=== PATIENT | male | born 1960 | race Caucasian/White ===

== ENCOUNTER 2022-11-14 14:30 | Inpatient (IN) | payer MEDICARE, MEDICAID, SELFPAY ==
[2022-11-14 14:32] VITALS: BP 144/89; PULSE 111; RESP 16; TEMP 37.2; O2SAT 96
[2022-11-14 17:48] LABS: Basophils # 0.1 10^3/uL (0.0-0.1); Basophils % 0.5 %; Eosinophils # 0.1 10^3/uL (0.0-0.8); Eosinophils % 0.6 %; Hematocrit 44.3 % (42.0-52.0); Hemoglobin 15.2 g/dL (11.7-16.6); Lymphocytes % 9.2 %; Mean Corpuscular HGB Conc 34.3 g/dL (30.0-36.0); Mean Corpuscular Hemoglobin 29.4 pg (28.0-34.0); Mean Corpuscular Volume 85.7 fl (80-94); Mean Platelet Volume 10.4 fL (7.4-10.4); Monocytes # 1.3 10^3/uL (0.2-0.9); Monocytes % 11.6 %; Neutrophils # 8.29 10^3/uL (1.8-7.7); Neutrophils % 75.1 %; Nucleated Red Blood Cells % 0 %; Platelet Count 244 10^3/cmm (130-400); Red Blood Count 5.17 10^6/uL (4.1-5.3); Red Cell Distribution Width 11.6 % (12.1-15.1)
--- NOTE | 2022-11-14 18:04 | XRR_ITS ---
PROCEDURE INFORMATION: Exam: XR Right Toe(s) Exam date and time: 11/14/2022 6:14 PM Age: 61 years old Clinical indication: Condition or disease; Other: Pain, redness, swelling great toe and dorsal foot; Swelling, leg or foot and other: Non healing wound plantar surface and great toe; Patient HX: Pain, redness swelling great toe and dorsal foot, non-healing wound plantar surface and dm- concern for osteo TECHNIQUE: Imaging protocol: Radiologic exam of the right toes. Views: Minimum 2 views. COMPARISON: No relevant prior studies available. FINDINGS: Limitations: Study is somewhat limited by radiographic technique. Bones/joints: No fracture is identified. There is a ulcer along the plantar aspect of the great toe. There is a small amount of radiopaque material within the ulcer or perhaps a foreign object. Please correlate with the clinical findings. There is osteopenia of the medial aspect of the base of the 1st distal phalanx and also some erosion along the plantar aspect of the distal 1st proximal phalanx. These findings are highly worrisome for osteomyelitis. Soft tissues: There is mild soft tissue swelling. XR/XR toe RT min 2V [id number] IMPRESSION: 1. Findings worrisome for osteomyelitis 2. Possible foreign body within the ulcer.
--- NOTE | 2022-11-14 18:06 | XRR_ITS ---
PROCEDURE INFORMATION: Exam: XR Left Toe(s) Exam date and time: 11/14/2022 6:18 PM Age: 61 years old Clinical indication: Condition or disease; Other: Redness, swelling, nonhealing ulcer; Difficulty in walking and swelling, leg or foot and other: Non healing ulcer plantar surface and dm; Additional info: Non-healing wound plantar surface and dm- TECHNIQUE: Imaging protocol: Radiologic exam of the left toes. Views: Minimum 2 views. COMPARISON: No relevant prior studies available. FINDINGS: Limitations: Study is limited by processing algorithm. Bones/joints: No fracture is identified. Soft tissues: There is mild soft tissue swelling. No opaque foreign body is seen. XR/XR toe LT min 2V [id number] IMPRESSION: Mild swelling.
[2022-11-14 18:15] LABS: Alanine Aminotransferase 16 U/L (0-41); Albumin Level 3.6 g/dL (3.5-5.2); Alkaline Phosphatase 102 U/L (40-130); Anion Gap 20.2 (5-19); Aspartate Amino Transferase 15 U/L (0-40); Blood Urea Nitrogen 15 mg/dL (8-23); Calcium 9.1 mg/dL (8.5-10.5); Carbon Dioxide 21 mmol/L (22-29); Chloride 92 mmol/L (98-107); Globulin 3.4 g/dL (1.3-4.6); Glomerular Filtration Rate 136.1 mL/min (90-130); Glucose 361 mg/dL (65-115); Osmolality Calculated 283 mOsm/kg (285-295); Potassium 4.2 mmol/L (3.5-5.1); Sodium 129 mmol/L (136-145); Total Bilirubin 1.8 mg/dL (0.15-1.2)
--- NOTE | 2022-11-14 18:40 | ED_ITS ---
HPI - Extremity Problem General: Chief complaint: Extremity Problem,Nontraumatic Stated complaint: Toe pain Time Seen by Provider: 11/14/22 18:07 History of Present Illness: Mr. Griffin is a 61-year-old gentleman with possible history of diabetes presenting to the emergency department for foot pain and redness. He notes noting an ulceration on the right great toe and the left great toe couple months ago without known specific provoking traumatic event. 3 weeks ago he started noticing increased redness and swelling. He notes 3 days of more severe symptoms. Moderate pain at rest and worse with ambulation and palpation. He notes generalized malaise and cough. He does not check his blood sugars at home. Overall course of symptoms has worsened. No other specific changes in health, exacerbating, or alleviating factors identified. Apparently was seen at clinic this morning and prescribed antibiotics though he has not yet started those. Onset (ago): week(s) Pain Consistency: constant Location: right, lower extremity and toe Quality: aching Radiation: proximal Relieving factors: nothing Exacerbating factors: weight bearing and walking Associated symptoms: Reports other Review of Systems General: Reports: 10 or more systems reviewed and unremarkable except in HPI and below PFSH ED PFSH: Medical History (Updated 11/18/22 @ 15:24 by Brannon Latham MD) Diabetes History of alcoholism Hyperlipidemia Hypertension Surgical History (Updated 11/18/22 @ 15:24 by Brannon Latham MD) History of coronary artery bypass graft x 2 2007 Postsurgical percutaneous transluminal coronary angioplasty (PTCA) status Social History (Updated 11/14/22 @ 18:59 by Ray Jackson MD) Smoking and tobacco status: former smoker Physical Exam Const: COMMON NORMALS: alert GENERAL APPEARANCE: cooperative, well developed and ill appearing HENMT: COMMON NORMALS: normocephalic and atraumatic HEAD & SCALP: normocephalic and atraumatic Eye: COMMON NORMALS: conjunctivae normal CONJUNCTIVA: Yes conjunctivae normal SCLERA: sclerae normal Neck/C-Spine: COMMON NORMALS: supple GENERAL: Yes trachea midline Resp: COMMON NORMALS: clear to auscultation bilaterally EFFORT & INSPECTION: Yes able to speak in complete sentences AUSCULTATION: clear to auscultation bilaterally Cardio: COMMON NORMALS: regular rhythm RATE: tachycardic RHYTHM: regular rhythm GI: COMMON NORMALS: Soft to palpation PALPATION: Yes Soft to palpation and No Tenderness to palpation present (GI) Extremity: NARRATIVE EXTREMITY EXAM: Left great toe has medial plantar skin ulceration without superimposed infection. Right foot with erythema involving the first and second toes, there is swelling and tenderness, ulceration with necrotic appearing central eschar approximately 5 mm in diameter on the plantar surface medially. Chronic appearing skin changes likely secondary to peripheral vascular disease on bilateral legs. GENERAL: Yes normal exam except as noted and No edema Neuro: COMMON NORMALS: moves all extremities SENSORIUM/ORIENTATION: Yes alert and No Orientation impaired Psych: COMMON NORMALS: mental status grossly normal and Normal thought process present THOUGHT PROCESS: Normal thought process present Course Vital Signs: Vital signs: Vital Signs Temperature 97.3 F L 11/19/22 18:19 Pulse Rate 79 11/19/22 18:19 Respiratory Rate 18 11/19/22 18:19 Blood Pressure 152/90 11/19/22 18:19 Pulse Oximetry 95 11/19/22 18:19 Oxygen Delivery Me thod Room Air 11/19/22 17:24 Oxygen Flow Rate 6 11/18/22 12:32 MDM - Extremity (Nontraumatic) Medical Decision Making 61-year-old gentleman presenting with worsening toe pain in the context of diabetes and prior wounds. Exam of concerning for infection. Labs with my leukocytosis, normal hemoglobin and platelet count. 70 markers are elevated. Patient has hyperglycemia with mild likely spurious mostly hyponatremia. Elevated of uncertain etiology, no right upper quadrant tenderness. Ketones are negative. Chest x-ray with no lobar consolidation or pneumothorax. Foot x-ray demonstrates likely osteomyelitis. Podiatry consulted. Patient treated with broad-spectrum antibiotics and given IV fluids. The results of ED evaluation were discussed with the patient including plan for admission due to requirement for level of care not available if discharged to surgical specialty center significant worsening/deterioration. Patient agreeable with plan. Discussed with hospitalist service who was agreeable to admit patient. Medical Records I reviewed the patient's medical records. Lab Data I reviewed the patient's lab results. 11/18/22 05:21 11/18/22 05:21 Radiology Impressions Toe X-Ray 11/14/22 18:06 IMPRESSION: Mild swelling. Chest X-Ray 11/14/22 18:46 IMPRESSION: No acute infiltrate. Foot CT 11/14/22 21:16 IMPRESSION: 1. Small soft tissue ulceration seen on the plantar aspect of the 1st digit of the left foot with some surrounding edematous or inflammatory changes in the subcutaneous fat fascia. 2. There is no evidence for osteomyelitis in the current examination. Abdomen Ultrasound 11/14/22 21:17 Impression: 1. Status post cholecystectomy. 2. Mild hepatomegaly and hepatic steatosis. 3. No bile duct dilatation. 4. Negative kidneys. Laboratory Results WBC 11.0 10^3/uL (4.0-10.0) H 11/14/22 17:30 RBC 5.17 10^6/uL (4.1-5.3) 11/14/22 17: Hgb 15.2 g/dL (11.7-16.6) 11/14/22: Hct 44.3 % (42.0-52.0) 11/14/22 17:30 MCV 85.7 fl (80-94) 11/14/22: MCH 29.4 pg (28.0-34.0) 11/14/22: MCHC 34.3 g/dL (30.0-36.0) 11/14/22: RDW 11.6 % (12.1-15.1) L 11/14/22: Plt Count 244 10^3/cmm (130-400) 11/14/22: MPV 10.4 fL (7.4-10.4) 11/14/22 17:30 Neut % (Auto) 75.1 % 11/14/22: Lymph % (Auto) 9.2 % 11/14/22 17: [place] % (Auto) 11.6 % 11/14/22 17:30 Eos % (Auto) 0.6 % 11/14/22 17:30 Baso % (Auto) 0.5 % 11/14/22:30 Neut # (Auto) 8.29 10^3/uL (1.8-7.7) H 11/14/22 17:30 Lymph # (Auto) 1.0 10^3/uL (0.8-4.8) 11/14/22 17:30 [place] # (Auto) 1.3 10^3/uL (0.2-0.9) H 11/14/22 17:30 Eos # (Auto) 0.1 10^3/uL (0.0-0.8) 11/14/22 17:30 Baso # (Auto) 0.1 10^3/uL (0.0-0.1) 11/14/22 17:30 Nucleated RBC % (auto) 0 % 11/14/22 17:30 Nucleated RBCs # 0.0 /100WBC 11/14/22 17:30 ESR 49 mm/hr (0-10) H 11/14/22 17:12 Sodium 129 mmol/L (136-145) L 11/14/22 17:30 Potassium 4.2 mmol/L (3.5-5.1) 11/14/22 17:30 Chloride 92 mmol/L (98-107) L 11/14/22 17:30 Carbon Dioxide 21 mmol/L (22-29) L 11/14/22 17:30 Anion Gap 20.2 (5-19) H 11/14/22 17:30 BUN 15 mg/dL (8-23) 11/14/22 17:30 Creatinine 0.6 mg/dL (0.7-1.2) L 11/14/22 17:30 GFR Calculation 136.1 mL/min (90-130) H 11/14/22 17:30 Glucose 361 mg/dL (65-115) H 11/14/22 17:30 Calculated Osmolality 283 mOsm/kg (285-295) L 11/14/22 17:30 Lactic Acid 1.2 mmol/L (0.5-2.2) 11/14/22 17:30 Calcium 9.1 mg/dL (8.5-10.5) 11/14/22 17:30 Total Bilirubin 1.8 mg/dL (0.15-1.2) H 11/14/22 17:30 AST 15 U/L (0-40) 11/14/22 17:30 ALT 16 U/L (0-41) 11/14/22 17:30 Alkaline Phosphatase 102 U/L (40-130) 11/14/22 17:30 C-Reactive Protein 79.3 mg/L (0.0-4.9) H 11/14/22 17:12 Total Protein 7.0 g/dL (6.6-8.7) 11/14/22 17:30 Albumin 3.6 g/dL (3.5-5.2) 11/14/22 17:30 Globulin 3.4 g/dL (1.3-4.6) 11/14/22 17:30 Serum Ketones Negative (Negative) 11/14/22 19:20 Influenza Type A Ag negative (Negative) 11/14/22 19:15 Influenza Type B Ag negative (Negative) 11/14/22 19:15 SARS-CoV-2 Ag (Rapid) negative (Negative) 11/14/22 19:15 Discharge Plan Discharge Patient Disposition: Admitted As Inpatient Admit Provider: Yumi Griffin Clinical Impression: Diabetic infection of right foot Condition: Stable Discharge Diet: Cardiac and Diabetic Discharge Activity: Resume usual activity and Increase activity as tolerated Coding Level of Care Code ED Footwear Sales Representative for Freddy Ocampo
[2022-11-14 18:43] LABS: Erythrocyte Sedimentation Rate 49 mm/hr (0-10)
--- NOTE | 2022-11-14 18:46 | XRR_ITS ---
PROCEDURE INFORMATION: Exam: XR Chest Exam date and time: 11/14/2022 6:52 PM Age: 61 years old Clinical indication: Cough; Prior surgery TECHNIQUE: Imaging protocol: Radiologic exam of the chest. Views: 1 view. COMPARISON: No relevant prior studies available. FINDINGS: Lungs: There is no pulmonary venous congestion. Visualized portions of the lungs are clear. Pleural spaces: Unremarkable. No pleural effusion. No pneumothorax. Heart/Mediastinum: Heart is within normal limits of size. Bones/joints: Sternotomy wires and mediastinal surgical clips are present, consistent with previous coronary arterial bypass grafting. XR/XR chest 1V portable [id number] IMPRESSION: No acute infiltrate.
[2022-11-14 18:56] LABS: C Reactive Protein 79.3 mg/L (0.0-4.9)
[2022-11-14 19:24] LABS: Lactic Sepsis W/Reflex 1.2 mmol/L (0.5-2.2)
[2022-11-14] MEDS: piperacillin-tazobactam 4.5 GM in sodium chloride 0.9% (plus) 50 ML IV (19:29)
[2022-11-14 19:53] VITALS: BP 134/86; PULSE 93; RESP 16; O2SAT 96
[2022-11-14 20:07] LABS: Ketone (Acetest) Serum Negative (Negative)
[2022-11-14 20:08] LABS: Influenza A by IFA negative (Negative); Influenza B by IFA negative (Negative); SARS Covid-2 Antigen negative (Negative)
[2022-11-14] MEDS: sodium chloride 0.9% 1,000 ML 999 ML IV (20:19)
[2022-11-14 20:21] VITALS: BP 134/86; RESP 16; O2SAT 95
--- NOTE | 2022-11-14 20:34 | P.HP_ITS ---
Providers/Chief Complaint Primary Care Provider: Primitivo Crowder Chief Complaint: Toe pain History of Present Illness Hudson Griffin is a 61 year old male past medical history of diabetes however he claims he does not have it presenting to the ER with foot pain and redness. He has an ulcer on his right great toe and left great toe for last 2 months however about 2 to 3 weeks ago he started noticing increased redness and swelling. He says it has gotten worse compared to his baseline. He complains of pain at the toes which is worse when he tries to ambulate or touch the wound. He denies any shortness of breath or chest pain however says he does have a mild cough. He also feels generally weak. Patient is not on any home medic ations and is not on any treatment for his diabetes and does not take check his sugar at home. Endorses being a former smoker denies alcohol use. He does not remember how he got the ulcers initially. Denies any particular accident or trauma. Says at 1 point in the past used to check his blood sugars and take his medications however then his sugar started becoming uncontrolled and then he stopped caring for it and stopped taking treatment. He states when he feels well he never thinks to go to see a doctor and he has been well. 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 Says he has a history of CABG x2 and has a history of CAD and has a stent placed as well. Lives alone and says when she speaks to Jp Pb which is his friend in case he cannot make his own medical decisions. ED course: Blood pressure 144/89, respirate 16, pulse 111, temperature 99, satu rating well on room air. X-ray of toe obtained which showed mild swelling. No air. WBC 11.0, hemoglobin 15.2, ESR 49, sodium 129, potassium 4.2, carbon dioxide 21, BUN 15, creatinine 0.6 glucose 361, calcium 9.1. Podiatry was consulted from the ER. Dr. Khalil will evaluate the patient in consultation and give further recommendations. Patient given a dose of vancomycin and Zosyn Medications/Allergies Home Medications Medication Instructions Recorded Confirmed Last Taken Type aspirin 81 mg tablet,delayed 81 mg PO DAILY 11/14/22 11/14/22 11/13/22 21:00 History release Allergies Allergy/AdvReac Type Severity Reaction Status Date / Time No Known Allergies Allergy Verified 11/14/22 14:40 PFSH Acute PFSH: Medical History (Updated 11/15/22 @ 00:31 by Eric Khalil DPM) Diabetes Surgical History (Updated 11/14/22 @ 18:59 by Ray Jackson MD) No significant past surgical history Social History (Updated 11/14/22 @ 18:59 by Ray Jackson MD) Smoking and tobacco status: former smoker Vitals/I&O/Wt Last Vital Signs Temp 99.0 F 11/14/22 14:32 Pulse 93 11/14/22 19:53 Resp 16 11/14/22 20:21 BP 134/86 11/14/22 20:21 Pulse Ox 95 11/14/22 20:21 O2 Del Method Room Air 11/14/22 19:53 Weight last 48 hrs Weight 86.183 kg Physical Exam Narrative: General: Alert oriented x3, patient seen laying in bed appearing comfortable at this time. HEENT: Normocephalic, atraumatic, EOMI, breathing normally on room air no acute respiratory distress. Cardio: Regular rate rhythm, normal S1-S2, Respiratory: Clear to auscultation bilaterally no wheezes no rhonchi GI: Abdomen soft,bowel sounds + Extremities: Left toe has an ulcer present on the medial plantar surface. Right foot first and second toes have erythema swelling and are tender to palpation. There is also a necrotic area appearing in the center. Was not able to probe to check depth. Data 11/15/22 05:04 11/14/22 21:41 Micro: Microbiology 11/14/22 19:20 Blood Culture - Preliminary Blood SPECIMEN COLLECTED 11/14/22 19:20 Blood Culture - Preliminary Blood SPECIMEN COLLECTED A&P Assessment and plan (1) Diabetic infection of right foot: (2) Hyponatremia: (3) Hyperglycemia: Plan #Diabetic foot infection #Osteomyelitis great toe right foot #Diabetes mellitus untreated uncontrolled #Probable peripheral neuropathy #Former smoker #Hyponatremia 2/2 hyperglycemia #Mild HAGMA #History of CABG x2 #CAD status post PCI x1 stent - Check stat blood glucose ? Podiatry consulted await recommendations ? Check CT bilateral feet to rule out extent of deeper infection ? May consider MRI to rule out osteomyelitis however will wait for CT results first ? Blood sugar 361. We will place on insulin sliding scale ACHS low-dose intensity for now and may escalate as sugars are monitored. ? Check hemoglobin A1c ? Consider addition of insulin depending upon results above ? Patient will need to be started on antihyperglycemics at discharge. ? N.p.o. at midnight today for potential intervention in OR in the morning ? Heparin SQ twice daily for DVT prophylaxis ? Sodium 129 today most likely secondary to hyperglycemia. - Corrected sodium = 135 ? Total bilirubin 1.8. Will check US abdomen - Check CRP - Check procalcitonin - Check TSH, lipid panel - Up with assistance - PT after surgery - Check PT/INR in AM, CBC, BMP - Check blood cultures - Monitor vanco trough levels - Continue vancomycin and zosyn -Discussed with Dr. Khalil over the phone. Patient to go for great toe amputation in AM. - Gap elevated probably due to hyperglycemia. Serum ketones negative. - Check another BMP before treating blood glucose as labs available at from 4.30 pm and no insulin has been given so far. ?Patient will need PCP, cardiology, podiatry follow-up at discharge. He prefers to see a primary care physician with [facility] in [place]. Full Code SCDs, heparin subcu BID Attestations Medical Necessity Statement*: > 2 midnight stay for management of foot infection Other Coding Information Focused coding review requested Diagnoses Diabetic infection of right foot E11.628; L08.9 Hyponatremia E87.1 Hyperglycemia R73.9
--- NOTE | 2022-11-14 20:47 | PM.CONSULT ---
Providers/Reason For Consult Consulting Physician/Specialty*: Eric Khalil D.P.M. Reason for Consult*: Diabetic foot infection Primary Care Provider: Primitivo Crowder History of Present Illness History of Present Illness Hudson Griffin is a 61 year old male presents with foul-smelling red, swollen right great toe. Started out as a callus several months ago, states that several weeks ago he began getting signs of infection with redness and foul-smelling drainage. States he delayed his care and states that he thinks he waited too long to come into the hospital. He does not follow regularly with his primary care physician. He is not regularly checking his blood sugars and states that he has been following a poor diet and not regulating his glucose. Endorses numbness to his feet. No history of revascularization of lower extremities. No history of previous amputation. He also has a wound to his left great toe that is not as severe. Patient denies any subjective nausea, vomiting, fever, chills, shortness of breath or chest pain. Review of Systems General: Reports: 10 or more systems reviewed and unremarkable except in HPI and below Const: Denies: fever(s) or chills Eyes: Denies: change in vision Card: Denies: chest pain or palpitations Resp: Denies: dyspnea or productive cough GI: Denies: abdominal pain, nausea or vomiting : Denies: flank pain Musc: Reports: extremity swelling, joint stiffness and deformity Skin/Breast: Reports: erythema, sores, changes in skin color, dry skin, nail changes and change in hair Neuro: Reports: numbness in extremities, sensory changes and difficulty walking Psych: Denies: suicidal ideation Endo: Denies: change in body appearance Danny/Lymph: Denies: tender lymph nodes Medications/Allergies Home Medications Medication Instructions Recorded Confirmed Last Taken Type aspirin 81 mg tablet,delayed 81 mg PO DAILY 11/14/22 11/14/22 11/13/22 21:00 History release Allergies Allergy/AdvReac Type Severity Reaction Status Date / Time No Known Allergies Allergy Verified 11/14/22 14:40 Current Medications Generic Name Dose Route Start Last Admin Trade Name Freq PRN Reason Stop Dose Admin Sodium Chloride 1,000 mls @ 999 mls/hr 11/14/22 19:59 11/14/22 20:19 Sodium Chloride 0.9% IV 11/14/22 20:59 999 mls/hr .Q1H1M ONE Administration PFSH Acute PFSH: Medical History (Updated 11/15/22 @ 00:31 by Eric Khalil DPM) Diabetes Surgical History (Updated 11/14/22 @ 18:59 by Ray Jackson MD) No significant past surgical history Social History (Updated 11/14/22 @ 18:59 by Ray Jackson MD) Smoking and tobacco status: former smoker Vitals/I&O/Wt Last Vital Signs Temp 99.0 F 11/14/22 14:32 Pulse 93 11/14/22 19:53 Resp 16 11/14/22 20:21 BP 134/86 11/14/22 20:21 Pulse Ox 95 11/14/22 20:21 O2 Del Method Room Air 11/14/22 19:53 Weight last 48 hrs Weight 190 lb Physical Exam Narrative: GENERAL: Patient is alert and oriented ?3 and in no acute distress. The following is a focused bilateral lower extremity exam. VASCULAR: Dorsalis pedis palpable +1 left and right foot. Posterior tibial arteries +2. Capillary refill time less than 3 seconds to the left hallux delayed capillary refill to the tuft of the right great toe. Calf is supple and nontender proximally and distally. Decreased growth. Focal edema to the right great toe. NEUROLOGICAL: Protective sensation intact 0/10 sites, tested with [place] monofilament to bilateral feet. DERMATOLOGICAL: Full-thickness wound probes to bone at the plantar medial aspect of the right great toe. Measures 0.8 cm x 0.8 cm x 1 cm. It tunnels dorsally and laterally. Foul malodor and streaking erythema with proximal streaking to the midfoot at the dorsum of the right foot. Grade 2 wound to the left great toe plantarly without surrounding erythema, warmth or purulent drainage. Measures 4 mm x 5 mm x 2 mm. Dystrophic toenails x10. Indurated skin to the lower extremity bilaterally. Dependent rubor to the lower extremities bilaterally. Chronic skin pigmentation changes in a gaiter distribution bilateral legs. MUSCULOSKELETAL: No pain to palpation or with debridement bilateral foot secondary to neuropathy. Ankle joint dorsiflexion is 5 degrees beyond neutral bilaterally. Muscle strength +5 in all 3 planes bilateral foot and ankle. Data 11/14/22 17:30 11/14/22 21:41 Micro: Microbiology 11/14/22 19:20 Blood Culture - Preliminary Blood SPECIMEN COLLECTED 11/14/22 19:20 Blood Culture - Preliminary Blood SPECIMEN COLLECTED A&P Assessment and plan (1) Diabetic peripheral neuropathy associated with type 2 diabetes mellitus: (2) Osteomyelitis of great toe of right foot: (3) Cellulitis of right foot: (4) Non-pressure chronic ulcer of other part of right foot with necrosis of bone: PROCEDURE: Full thickness wound debridement Location: Plantar aspect of right great toe Local Anesthesia: none due to neuropathy Consent: Verbal Sterile Prep: with sterile saline flush Details: Full thickness sharp debridement of the wound was performed using curette. The wound was debrided of hyperkeratotic rim and devitalized and necrotic tissue down to bone, being the deepest level of debridement. Predebridement measurements: 0.8 cm x 0.8 cm x 1 cm Postdebridement measurements: 1 cm x 1.1 cm x 1 cm Hemostasis: Pressure Irrigation: sterile normal saline Dressing: Betadine wet-to-dry after culture was taken. Estimated Blood Loss: minimal Offloading: Nonweightbearing Wound culture was taken postdebridement and saline flush. Sent to microbiology for Gram stain and culture. (5) Non-pressure chronic ulcer of other part of left foot with fat layer exposed: Plan 61-year-old uncontrolled diabetic male with acute osteomyelitis and cellulitis to the right great toe. On admission 11/15/2022 WBC 11.0 ESR 49 mm/h CRP 79.3 mg/L A1c 12.4% Left foot x-ray negative for acute osseous injury, no bony destruction, no soft tissue emphysema, no foreign body. Right foot x-ray significant for osteolysis with erosive changes and bony destruction at the distal phalanx. Patient examined and evaluated, findings and treatment options were discussed with patient at length. He has a wound that probes to bone and also tunnels both dorsally and laterally around the distal phalanx of the right great toe. There is cellulitis streaking to the dorsum of the midfoot originating from the right great toe. There is foul purulent drainage from the right great toe wound. Discussed a variety of treatment options. Patient currently receiving empiric IV antibiotics. Discussed surgical debridement with bone culture, long-term antibiotics and local wound care versus amputation and potential primary delayed closure of the right great toe. After discussing risks versus benefits of each. Patient wishes to proceed with right great toe amputation. N.p.o. at midnight Nonweightbearing right foot Scheduled for right great toe amputation tomorrow morning 11/16/2022 Amputation site will be left open, should soft tissue improve over the next 2 to 3 days would return to the operating room for primary delayed closure Wound cultures taken after bedside debridement, sent to microbiology for Gram stain and culture Dressed with Betadine wet to dry Podiatry will follow Consult Attestations Medical Necessity Statement: Diabetic foot infection with osteomyelitis and cellulitis right foot. Coding Level of Care Code Acute Code for [facility] Fwd Diagnoses Diabetic peripheral neuropathy associated with type 2 diabetes mellitus E11.42 Osteomyelitis of great toe of right foot M86.9 Cellulitis of right foot L03.115 Non-pressure chronic ulcer of other part of right foot with necrosis of bone L97.514 Non-pressure chronic ulcer of other part of left foot with fat layer exposed L97.522 Comment CPT code 78644
[2022-11-14 21:06] VITALS: BP 146/84; PULSE 76; RESP 18; TEMP 37.1; O2SAT 99
--- NOTE | 2022-11-14 21:12 | CTR_ITS ---
PROCEDURE INFORMATION: Exam: CT Right Lower Extremity With Contrast, Foot Exam date and time: 11/15/2022 12:06 AM Age: 61 years old Clinical indication: Cellulitis; Patient HX: Redness with diabetic wounds to right foot. ; Additional info: R/O deep infection, osteo? TECHNIQUE: Imaging protocol: CT of the right lower extremity with intravenous contrast was performed. Exam focused on the foot. Radiation optimization: All CT scans at this facility use at least one of these dose optimization techniques: automated exposure control; mA and/or kV adjustment per patient size (includes targeted exams where dose is matched to clinical indication); or iterative reconstruction. Contrast material: OMNI 350; Contrast volume: 75 ml; Contrast route: INTRAVENOUS (IV); REPORTING DATA: Count of CT and Cardiac NM exams in prior 12 months: This patient has received [address] and 0 known cardiac nuclear medicine studies in the 12 months prior to the current study. COMPARISON: CR (LOW EXM, ) 11/14/2022 6:14 PM RADIATION DOSE METRICS: Total DLP (mGy-cm): 252.44 FINDINGS: Bones/joints: There is a soft tissue defect seen on the dorsal medial aspect the 1st digit of the right foot that extends to the surface of the distal phalanx. There is a lytic lesion seen in the distal phalanx of the 1st digit with osseous erosion of the cortical margin on the dorsal medial aspect the proximal extent of the distal phalanx, findings compatible with osteomyelitis. Soft tissues: Normal. CT/CT foot RT w con [id number] IMPRESSION: 1. Lytic lesion with erosion of the cortical margin of the dorsal medial aspect of the proximal extent of the distal phalanx of the 1st digit of the right foot compatible with osteomyelitis. 2. Surrounding edema and/or inflammatory changes within the subcutaneous tissues of the 1st digit.
--- NOTE | 2022-11-14 21:16 | CTR_ITS ---
PROCEDURE INFORMATION: Exam: CT Left Lower Extremity With Contrast, Foot Exam date and time: 11/15/2022 12:10 AM Age: 61 years old Clinical indication: Cellulitis; Patient HX: Redness with diabetec wounds to left foot. ; Additional info: R/O deep infection, osteo? TECHNIQUE: Imaging protocol: CT of the left lower extremity with intravenous contrast was performed. Exam focused on the foot. Radiation optimization: All CT scans at this facility use at least one of these dose optimization techniques: automated exposure control; mA and/or kV adjustment per patient size (includes targeted exams where dose is matched to clinical indication); or iterative reconstruction. Contrast material: OMNI 350; Contrast volume: 75 ml; Contrast route: INTRAVENOUS (IV); REPORTING DATA: Count of CT and Cardiac NM exams in prior 12 months: This patient has received [address] and 0 known cardiac nuclear medicine studies in the 12 months prior to the current study. COMPARISON: CR (LOW EXM, ) 11/14/2022 6:18 PM RADIATION DOSE METRICS: Total DLP (mGy-cm): 142.19 FINDINGS: Bones/joints: A soft tissue ulceration seen the plantar aspect of the 1st digit of the left foot at the level of the distal interphalangeal joint. There are surrounding diffuse subcutaneous densities findings that could represent edematous versus inflammatory changes. Soft tissues: See Bones/joints finding. CT/CT foot LT w con [id number] IMPRESSION: 1. Small soft tissue ulceration seen on the plantar aspect of the 1st digit of the left foot with some surrounding edematous or inflammatory changes in the subcutaneous fat fascia. 2. There is no evidence for osteomyelitis in the current examination.
--- NOTE | 2022-11-14 21:17 | US_ITS ---
WS: [id number] Complete ABDOMINAL ULTRASOUND HISTORY: Elevated T bilirubin. COMPARISON: None available. Liver: 18.9 cm in length. Mildly enlarged liver. There is slight coarse echotexture. No mass identifi ed. No bile duct dilatation. Portal Vein: Normal hepatopetal flow with monophasic waveform. Gallbladder: Status post cholecystectomy. CBD: 0.4 cm Pancreas: Normal size and echogenicity. Right kidney: 13.0 cm x 6.9 x 6.3 cm. Cortex:1.7 cm. Normal size and echogenicity. No hydronephrosis or mass. Left kidney: 11.5 cm x 5.4 cm x 6.4 cm. Cortex: 2.1 cm. No mass, cortical thickening or hydronephrosis. Spleen: Normal size with granulomata. Aorta and IVC: Unremarkable abdominal aorta and IVC. US/US abdomen complete* [id number] Impression: 1. Status post cholecystectomy. 2. Mild hepatomegaly and hepatic steatosis. 3. No bile duct dilatation. 4. Negative kidneys.
[2022-11-14 21:48] VITALS: BMI 27.2
[2022-11-14 22:13] LABS: Lactic Sepsis W/Reflex 1.7 mmol/L (0.5-2.2)
[2022-11-14 22:15] LABS: Estmated Average Glucose 309; Hemoglobin A1C 12.4 % (4.0-6.0)
[2022-11-14 22:24] LABS: Procalcitonin 0.43 ng/mL (0-0.5); Thyroid Stimulating Hormone 2.86 uIU/mL (0.27-4.20)
[2022-11-14 22:35] LABS: Blood Urea Nitrogen 13 mg/dL (8-23); Calcium 8.6 mg/dL (8.5-10.5); Carbon Dioxide 24 mmol/L (22-29); Chloride 92 mmol/L (98-107); Cholesterol 114 mg/dL (0-200); Glomerular Filtration Rate 113.9 mL/min (90-130); Glucose 377 mg/dL (65-115); HDL Cholesterol 19 mg/dL (60-100); LDL Cholesterol Calculated 22 mg/dL (50-129); LDL HDL Ratio 1.16 RATIO (0.00-3.22); Osmolality Calculated 284 mOsm/kg (285-295); Sodium 129 mmol/L (136-145); Triglycerides 366 mg/dL (0-150)
[2022-11-14 22:47] LABS: Glucose Point of Care 405 mg/dL (70-110)
[2022-11-14] MEDS: sodium chloride 0.9% 1,000 ML 125 ML IV (22:47)
[2022-11-14] MEDS: heparin 5,000 unit/mL INJ 1 mL 5000 UNIT SUBCUT (22:47)
[2022-11-14] MEDS: acetaminophen 325 mg Tablet 650 MG PO (22:47)
[2022-11-14] MEDS: insulin lispro 100 unit/1 mL SUBCUT (23:18)
[2022-11-14 23:34] VITALS: RESP 16
[2022-11-14] MEDS: morphine 4 mg/mL SDV 1 mL 2 MG IVP (23:34)
[2022-11-15] VITALS (12 sets, daily range): BP systolic 120–139; BP diastolic 73–83; PULSE 68–85; RESP 14–18; TEMP 36.1–37.1; O2SAT 95–99
[2022-11-15] MEDS: iohexol 350 mg/mL 500 mL Btl (per mL) IV (00:14)
[2022-11-15] MEDS: piperacillin-tazobactam 3.375 GM in sodium chloride 0.9% (plus) 50 ML IV ×3 (00:45→20:16)
[2022-11-15] MEDS: vancomycin 1,500 MG/300 ML PIGGYBACK 200 MG IV ×3 (04:25→23:23)
[2022-11-15 05:36] LABS: Basophils % 0.5 %; Eosinophils # 0.2 10^3/uL (0.0-0.8); Eosinophils % 2.4 %; Hematocrit 39.1 % (42.0-52.0); Hemoglobin 13.2 g/dL (11.7-16.6); Lymphocytes # 1.5 10^3/uL (0.8-4.8); Lymphocytes % 18.8 %; Mean Corpuscular HGB Conc 33.8 g/dL (30.0-36.0); Mean Corpuscular Hemoglobin 29.5 pg (28.0-34.0); Mean Corpuscular Volume 87.5 fl (80-94); Mean Platelet Volume 10.4 fL (7.4-10.4); Monocytes # 1.2 10^3/uL (0.2-0.9); Monocytes % 14.9 %; Neutrophils # 4.71 10^3/uL (1.8-7.7); Neutrophils % 60.5 %; Nucleated Red Blood Cells % 0 %; Platelet Count 215 10^3/cmm (130-400); Red Blood Count 4.47 10^6/uL (4.1-5.3); Red Cell Distribution Width 11.8 % (12.1-15.1); White Blood Count 7.8 10^3/uL (4.0-10.0)
[2022-11-15 05:54] LABS: Anion Gap 12.7 (5-19); Blood Urea Nitrogen 10 mg/dL (8-23); Calcium 8.2 mg/dL (8.5-10.5); Carbon Dioxide 26 mmol/L (22-29); Chloride 100 mmol/L (98-107); Glomerular Filtration Rate 136.1 mL/min (90-130); Glucose 199 mg/dL (65-115); Osmolality Calculated 285 mOsm/kg (285-295); Potassium 3.7 mmol/L (3.5-5.1); Sodium 135 mmol/L (136-145)
[2022-11-15] MEDS: sodium chloride 0.9% 1,000 ML 30 ML IV (06:45)
--- NOTE | 2022-11-15 06:47 | W.PM.OPSUD ---
Surgery/Procedure H&P Update DATE OF PROCEDURE: November 15, 2022 DATE H&P PERFORMED: 11/14/22 CHANGES TO PREVIOUS DOCUMENTATION: none PLANNED PROCEDURE: Operation Date: 11/15/22 07:00 Proposed Procedures p Amputation Toe/s(Right) - Eric Khalil DPM
--- NOTE | 2022-11-15 07:19 | P.ANESASSM_ITS ---
Pre-Anesthetic Assessment Height/Weight: Height 1.78 m Weight 86.183 kg Temp Pulse Resp BP Pulse Ox O2 Del Method 98.8 F 75 16 130/80 99 Room Air 11/15/22 06:31 11/15/22 06:31 11/15/22 06:31 11/15/22 06:31 11/15/22 06:31 11/15/22 06:31 Operation Date: 11/15/22 07:00 Proposed Procedures p Amputation Toe/s(Right) - Eric Khalil DPM Familial anesthetic complications: none Was Beta Torri taken within 24 hours: N/A Was Clonidine taken within 24 hours: N/A Social No alcohol and No tobacco Exam alert, oriented x 3 and regular rate & rhythm Airway Submandibular: within normal limits Cervical ROM: within normal limits Mallampati: Class II Dentition: false Pulmonary Chronic Obstructive Pulmonary Disease CV/HEM Anemia and Coronary Artery Disease (CABG and stent) Metabolic Diabetes Mellitus Neuropsych Neuropathy Anesthetic Plan ASA status: 3 Anesthesia: Choice Medications/Allergies Home Medications Medication Instructions Recorded Confirmed Last Taken Type aspirin 81 mg tablet,delayed 81 mg PO DAILY 11/14/22 11/14/22 11/13/22 21:00 History release Allergies Allergy/AdvReac Type Severity Reaction Status Date / Time No Known Allergies Allergy Verified 11/14/22 14:40 Current Medications Generic Name Dose Route Start Last Admin Trade Name Freq PRN Reason Stop Dose Admin Acetaminophen 650 mg 11/14/22 21:06 11/14/22 22:47 Acetaminophen 325 Mg Tablet PO 650 mg Q6H PRN Administration Mild/Mod Pain Or Temp >/= 101 Heparin Sodium (Porcine) 5,000 unit 11/14/22 21:15 11/14/22 22:47 Heparin 5,000 Unit/Ml Inj 1 Ml SUBCUT 5,000 unit Q12H RG Administration Sodium Chloride 1,000 mls @ 125 mls/hr 11/14/22 21:15 11/14/22 22:47 Sodium Chloride 0.9% IV 125 mls/hr .Q8H RG Administration Piperacillin Sod/Tazobactam 50 mls @ 12.5 mls/hr 11/15/22 01:30 11/15/22 04:52 Sod 3.375 gm/ Sodium Chloride IV Infused Q8H RG Infusion Vancomycin/PEG/NADA/Lysine/Water 1,500 mg in 300 mls @ 200 mls/hr 11/15/22 04:00 11/15/22 06:14 Vancocin IV Infused Q8H RG Infusion Sodium Chloride 1,000 mls @ 30 mls/hr 11/15/22 06:45 11/15/22 06:45 Sodium Chloride 0.9% IV 11/16/22 06:44 30 mls/hr .Q24H RG Administration Insulin Human Lispro 0 unit 11/14/22 23:15 11/14/22 23:18 Insulin Lispro 100 Unit/1 Ml SUBCUT 16 unit WM&BEDTIME RG Administration Protocol [facility] Anesthesia Medical History (Updated 11/15/22 @ 00:31 by Eric Khalil DPM) Diabetes Surgical History (Updated 11/14/22 @ 18:59 by Ray Jackson MD) No significant past surgical history Social History (Updated 11/14/22 @ 18:59 by Ray Jackson MD) Smoking and tobacco status: former smoker Data Anesthesia 11/15/22 05:04 11/15/22 05:04 Short CBC 11/14/22 11/15/22 Range/Units 17:30 05:04 WBC 11.0 H 7.8 (4.0-10.0) 10^3/uL Hgb 15.2 13.2 (11.7-16.6) g/dL Hct 44.3 39.1 L (42.0-52.0) % MCV 85.7 87.5 (80-94) fl Plt Count 244 215 (130-400) 10^3/cmm Neut % (Auto) 75.1 60.5 % Neut # (Auto) 8.29 H 4.71 (1.8-7.7) 10^3/uL BMP 11/14/22 11/14/22 11/15/22 17:30 21:41 05:04 Sodium 129 L 129 L 135 L Potassium 4.2 4.0 3.7 Chloride 92 L 92 L 100 Carbon Dioxide 21 L 24 26 BUN 15 13 10 Creatinine 0.6 L 0.7 0.6 L Glucose 361 H 377 H 199 H Calcium 9.1 8.6 8.2 L Liver Function 11/14/22 Range/Units 17:30 Total Bilirubin 1.8 H (0.15-1.2) mg/dL AST 15 (0-40) U/L ALT 16 (0-41) U/L Alkaline Phosphatase 102 (40-130) U/L Albumin 3.6 (3.5-5.2) g/dL COVID Results 11/14/22 19:15 SARS-CoV-2 Ag (Rapid) negative Coags 11/14/22 11/14/22 17:12 17:12 ESR 49 H C-Reactive Protein 79.3 H Microbiology 11/14/22 19:20 Blood Culture - Preliminary Blood SPECIMEN COLLECTED 11/14/22 19:20 Blood Culture - Preliminary Blood SPECIMEN COLLECTED Cardiac Studies: No Data to Display
--- NOTE | 2022-11-15 07:32 | P.OP_ITS ---
Operative Report Date of procedure: November 15, 2022 Pre-op diagnosis: Osteomyelitis right great toe Cellulitis right foot Diabetic foot ulcer, left great toe exposed to fat layer Post-op diagnosis: Same Procedure done: Right great toe amputation at metatarsal phalangeal joint. Debridement of left great toe wound. Implants: None Specimens removed/disposition: Bone culture distal phalanx right great toe sent to microbiology for Gram stain and culture. Pathology: Right great toe sent to pathology for permanent Surgeon: Eric Khalil D.P.M. Microwave Technician: Ashley Estimated blood loss: 5 7 IV fluids: 0 Urine output: 0 Complications: None Brief History: Patient reports a callus that transitioned into the wound several weeks ago. He reports waiting too long to come in and seek care. He presented to the emergency department with a wound to the plantar aspect of his right great toe that probes directly to bone, x-ray finding shows osteolysis of the distal phalanx indicative of osteomyelitis. Discussed surgical amputation versus debridement, bone culture and medical management with local wound care. Patient wishes to proceed with amputation of the right great toe as a more definitive option from his point of view. I reviewed at length with the patient, the risks, potential complications, benefits, alternatives, expectations, and typical outcomes associated with the surgery. The risks and potential complications were explained in detail, including but not limited to infection, wound dehiscence or soft tissue complications, bleeding and hematoma, chronic edema, neuritis or nerve damage producing numbness or chronic pain, CRPS, failure to relieve pain or worsening pain, thick / painful / unsightly scar, limited motion / stiffness, malposition, delayed union, malunion, or nonunion, fracture, reaction to implants, anesthetic complications, venous thromboem bolism, and deformity recurrence. I discussed the notion of no regrets with the patient as it pertains to complications and outcomes. The patient seemed to understand the nature of the proposed care and required convalescence. They asked appropriate questions, answered to their satisfaction. They are aware no guarantees can be made as to a satisfactory outcome and they understand there may be other possible unforeseen complications or outcomes not listed here that will be treated accordingly if they arise. There were no written or implied guarantees given to the patient. They gave informed consent to proceed. Patient n.p.o. since midnight. Informed consent signed by patient and myself. I initialed his right ankle. Patient wishes to proceed. Procedure: Under mild sedation the patient was brought to the operating room and remained on the gurney in supine position. A timeout was performed. Anesthesia was then administered by the anesthesia service. Local anesthesia was injected by myself consisting of 20 cc of 0.5% Marcaine plain in a right Lebron block fashion. Well- padded pneumatic tourniquet was applied to the right ankle. Right lower extremity was scrubbed, prepped and draped utilizing normal aseptic technique. Right foot was elevated and tourniquet inflated to 250 mmHg. Attention was directed to the right foot where a fishmouth incision was performed encompassing the right great toe at the level of the metatarsal phalangeal joint leaving adequate dorsal and plantar soft tissue flaps. Full- thickness incision down to bone circumferentially around the right great toe which was then disarticulated through the metatarsal phalangeal joint with a #15 blade and passed from the operative field. Bone culture taken with a rongeur of the distal phalanx of the right great toe noted to be soft, bassett and devitalized. Bleeders were ligated and cauterized as necessary. The right great toe amputation site was irrigated with copious amounts of sterile saline solution. Residual cellulitis of the surrounding soft tissue was appreciated and determination was made to perform a saline wet-to-dry dressing and allow continuation of IV antibiotics for soft tissue improvement, should this occur we will return for further debridement and potential primary delayed closure. The head of the first metatarsal was directly visualized and noted to be viable with bright light and appropriate density. Wound was packed saline wet-to-dry, Kerlix and Coban to the right foot. Sharp debridement was performed with a #15 blade to the left great toe. Predebridement wound measurements 0.8 cm x 0.8 cm x 0.2 cm at the plantar aspect of the left hallux interphalangeal joint. 15 blade was utilized to perform excisional debridement down to and including subcutaneous tissue and fat layer. Postdebridement wound measurements to the left great toe 1 cm x 1 cm x 0.3 cm with improved appearance, improved granular bleeding base with hemostasis via manual pressure. Wound was debrided of devitalized epidermis, dermis and subcutaneous tissue. Dressing consisting of 4 x 4 and Coban was applied to the left great toe. Patient tolerated anesthesia and the procedure well and was transferred to the PACU with vital signs stable and vascular status intact. Following a period of postoperative monitoring he will be transferred back to the floor. Will continue empiric IV antibiotics. Will monitor daily and once soft tissue shows clinical improvement we will plan for repeat debridement and primary delayed closure. Not planning on PICC line, level of amputation should be curative of osteomyelitis. Will continue to monitor this.
--- NOTE | 2022-11-15 09:13 | ECG_ITS ---
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 Measurements Intervals [place] Rate: 71 P: 26 TX: 138 QRS: 81 QRSD: 86 T: 65 QT: 384 QTc: 418 Interpretive Statements SINUS RHYTHM Compared to ECG 01/03/2015 18:56:24 No significant changes Electronically Signed On 11-15-2022 13:50:47 CDT by Hu Escalante M.D. [id number]
[2022-11-15 09:33] LABS: NT Pro B Type Natriuretic Pept 132 pg/mL (0-125)
[2022-11-15 09:37] LABS: Troponin(5th) Baseline 9 ng/L (0-15)
[2022-11-15] MEDS: insulin glargine 100 units/1 mL 5 UNIT SUBCUT ×2 (10:36→23:13)
[2022-11-15] MEDS: heparin 5,000 unit/mL INJ 1 mL 5000 UNIT SUBCUT ×2 (10:36→20:16)
--- NOTE | 2022-11-15 10:56 | ECG_ITS ---
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 Measurements Intervals [place] Rate: 70 P: 29 [place]: 145 QRS: 80 QRSD: 94 T: 68 QT: 391 QTc: 422 Interpretive Statements SINUS RHYTHM Compared to ECG 11/15/2022 09:13:27 No significant changes Electronically Signed On 11-15-2022 13:52:48 CDT by Hu Escalante M.D. [id number]
[2022-11-15 11:38] LABS: Glucose Point of Care 311 mg/dL (70-110)
[2022-11-15 11:41] LABS: Troponin 5 2HR 9.47 ng/L (0-15)
[2022-11-15 12:21] LABS: Troponin 5 2HR Delta 0.47 ABS# (0-10)
[2022-11-15] MEDS: insulin lispro 100 unit/1 mL SUBCUT ×3 (12:51→23:13)
--- NOTE | 2022-11-15 13:42 | ANE.PACU2 ---
Inpatient post-anesthesia follow up: Airway intact: Yes Vital signs: Temperature 98 F Pulse Rate 72 Respiratory Rate 16 Blood Pressure 120/73 Pulse Oximetry 98 Oxygen Delivery Me thod Room Air Oxygen Flow Rate 6 Fraction of Inspir ed Oxygen Hydration adequate: Yes Nausea and vomiting: No Pain level: 2 Mental status: Baseline
--- NOTE | 2022-11-15 14:14 | USCV_ITS ---
Hudson Griffin Age: 61 Gender: M : 1960 Exam Date: 11/15/2022 17:15 Ordering Phys: Flash Eastman MD Technologist: JEN Exam Location: [facility] [place] Indication: arterial disease Risk Factors: Previous Vascular Surgery: RIGHT LEFT BP: 134.0 / 79.00 BP: 134.0/ 80.00 0 0 Waveform Velocity (cm/s) Velocity (cm/s) Waveform Triphasic 94.0 Iliac Prox 79.4 Triphasic Triphasic 68.4 Iliac Mid 71.7 Triphasic Triphasic Iliac Distal Triphasic 70.7 56.5 Triphasic 62.9 HELP DESK INTERNSHIP 63.1 Triphasic Triphasic 81.6 SFA Prox 62.4 Triphasic Triphasic 78.5 SFA Mid 118.3 Triphasic Triphasic 83.9 SFA Dist 92.0 Triphasic Triphasic 110.2 POP 106.5 Triphasic Triphasic 133.0 DIGITAL MARKETING STRATEGIST 90.7 Triphasic Triphasic 181.8 DPA 63.1 Triphasic 1.1 LUZ 1.1 FINDINGS Resting LUZ 1.1 bilaterally Normal arterial Doppler waveforms and velocities bilaterally CONCLUSIONS No evidence of any significant arterial obstruction, based on the above findings. Dr Reyna Mcintosh MD [facility] (Electronically Signed) Final Date: 16 November 2022 20:47 S
--- NOTE | 2022-11-15 14:49 | PM.PN ---
Subjective Subjective: Patient was seen this morning, he tells me that the infection in his toe happened overnight, he is done on how fast to happen, he is also started when I tell him that his A1c was 12.4, he tells me that it was in the 6 range not too long ago, Vitals/I&O/Wt Last Vital Signs Temp 98 F 11/15/22 08:49 Pulse 72 11/15/22 08:49 Resp 16 11/15/22 08:49 BP 120/73 11/15/22 08:49 Pulse Ox 98 11/15/22 08:49 O2 Del Method Room Air 11/15/22 07:45 O2 Flow Rate 6 11/15/22 07:31 11/14/22 11/15/22 11/15/22 22:59 06:59 14:59 Intake Total 1550 / 1550 350 / 1900 1350 / 1350 Output Total 0 / 0 Balance 1550 / 1550 350 / 1900 1350 / 1350 Weight last 48 hrs Weight 86.183 kg Weight 86.183 kg Physical Exam Const: COMMON NORMALS: no acute distress and patient oriented x3 Resp: COMMON NORMALS: normal respiratory effort, No retractions, No use of accessory muscles and clear to auscultation bilaterally AUSCULTATION: clear to auscultation bilaterally Cardio: COMMON NORMALS: regular rate, regular rhythm, S1 normal heart sound present and S2 normal heart sound present RATE: regular rate RHYTHM: regular rhythm HEART SOUNDS: S1 normal heart sound present and S2 normal heart sound present GI: COMMON NORMALS: Normal to inspection, nondistended, normoactive bowel sounds present and non-tender Extremity: NARRATIVE EXTREMITY EXAM: Bilateral lower extremity wrapped in bandage Neuro: COMMON NORMALS: patient oriented x3 Psych: COMMON NORMALS: mental status grossly normal Data 11/15/22 05:04 11/15/22 05:04 Micro: Microbiology 11/14/22 19:20 Blood Culture - Preliminary Blood SPECIMEN COLLECTED 11/14/22 19:20 Blood Culture - Preliminary Blood SPECIMEN COLLECTED A&P Assessment and plan (1) Diabetic infection of right foot: (2) Hyponatremia: (3) Hyperglycemia: Plan #Diabetic foot infection #Osteomyelitis great toe right foot, status post right great toe amputation at metatarsophalangeal joint, with debridement of left great toe wound, postop day 0 #Diabetes mellitus untreated uncontrolled #Probable peripheral neuropathy #Former smoker #Hyponatremia 2/2 hyperglycemia #Mild HAGMA #History of CABG x2 #CAD status post PCI x1 stent -Low-dose sliding scale, with Lantus 5 units twice daily, monitor blood sugars closely ? Heparin SQ twice daily for DVT prophylaxis ? Sodium 129 today most likely secondary to hyperglycemia. - Corrected sodium = 135 ? Total bilirubin 1.8. Will check US abdomen - PT after surgery - Check blood cultures, surgical cultures - Monitor vanco trough levels - Continue vancomycin and zosyn -Discussed with Dr. Khalil, -We will do vascular studies ?Patient will need PCP, cardiology, podiatry follow-up at discharge. He prefers to see a primary care physician with [facility] in [place]. Plan for today antibiotic therapy, monitor surgical site, monitor blood sugars, vascular studies Full Code SCDs, heparin subcu BID Attestations Medical Necessity Statement*: Patient requires hospitalization for diabetic foot infection, Diagnoses Diabetic infection of right foot E11.628; L08.9 Hyponatremia E87.1 Hyperglycemia R73.9
--- NOTE | 2022-11-15 14:56 | ECG_ITS ---
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 Measurements Intervals [place] Rate: 76 P: 27 ID: [id number] QRS: 79 QRSD: 87 T: 66 QT: 372 QTc: 419 Interpretive Statements SINUS RHYTHM WITH SINUS ARRHYTHMIA Compared to ECG 11/15/2022 10:49:47 No significant changes Electronically Signed On 11-16-2022 10:35:02 CDT by Hu Escalante M.D. [id number]
[2022-11-15] MEDS: acetaminophen 325 mg Tablet 650 MG PO (15:04)
[2022-11-15 15:28] LABS: Troponin 5 6HR 9.21 ng/L (0-15)
[2022-11-15 15:33] LABS: Troponin 5 6HR Delta 0.21 ng/L (0-12)
[2022-11-15 15:39] LABS: Glucose Point of Care 176 mg/dL (70-110)
[2022-11-15 18:00] LABS: Glucose Point of Care 237 mg/dL (70-110)
[2022-11-15 19:57] LABS: Vancomycin Trough 19.6 ug/mL (10-15)
[2022-11-15] MEDS: HYDROcodone-acetaminophen 5-325 mg Tablet 1 TAB PO (20:16)
[2022-11-15] MEDS: atorvastatin 40 mg Tablet PO (20:16)
[2022-11-15 21:50] LABS: Glucose Point of Care 233 mg/dL (70-110)
[2022-11-15 23:06] LABS: Glucose Point of Care 277 mg/dL (70-110)
[2022-11-16] VITALS: BP 125/78; PULSE 70; RESP 17; TEMP 36.9; O2SAT 97
[2022-11-16] MEDS: HYDROcodone-acetaminophen 5-325 mg Tablet 1 TAB PO ×4 (01:15→20:49)
[2022-11-16] MEDS: piperacillin-tazobactam 3.375 GM in sodium chloride 0.9% (plus) 50 ML IV ×3 (02:08→20:50)
[2022-11-16 03:26] LABS: Basophils # 0.1 10^3/uL (0.0-0.1); Basophils % 0.6 %; Eosinophils # 0.2 10^3/uL (0.0-0.8); Eosinophils % 2.7 %; Hematocrit 35.8 % (42.0-52.0); Hemoglobin 11.9 g/dL (11.7-16.6); Lymphocytes # 1.6 10^3/uL (0.8-4.8); Lymphocytes % 19.8 %; Mean Corpuscular HGB Conc 33.2 g/dL (30.0-36.0); Mean Corpuscular Hemoglobin 28.8 pg (28.0-34.0); Mean Corpuscular Volume 86.7 fl (80-94); Mean Platelet Volume 10.5 fL (7.4-10.4); Monocytes # 1.1 10^3/uL (0.2-0.9); Monocytes % 13.1 %; Neutrophils # 4.81 10^3/uL (1.8-7.7); Neutrophils % 59.7 %; Nucleated Red Blood Cells % 0 %; Platelet Count 237 10^3/cmm (130-400); Red Blood Count 4.13 10^6/uL (4.1-5.3); Red Cell Distribution Width 11.6 % (12.1-15.1); White Blood Count 8.1 10^3/uL (4.0-10.0)
[2022-11-16 03:50] LABS: Anion Gap 12.9 (5-19); Blood Urea Nitrogen 10 mg/dL (8-23); Calcium 8.5 mg/dL (8.5-10.5); Carbon Dioxide 25 mmol/L (22-29); Chloride 99 mmol/L (98-107); Glomerular Filtration Rate 113.9 mL/min (90-130); Glucose 162 mg/dL (65-115); Osmolality Calculated 279 mOsm/kg (285-295); Potassium 3.9 mmol/L (3.5-5.1); Sodium 133 mmol/L (136-145)
[2022-11-16 04:00] VITALS: BP 123/78; PULSE 66; RESP 20; TEMP 37; O2SAT 97
[2022-11-16] MEDS: vancomycin 1,500 MG/300 ML PIGGYBACK 200 MG IV ×3 (06:13→23:17)
[2022-11-16 06:27] LABS: Glucose Point of Care 200 mg/dL (70-110)
[2022-11-16 08:00] VITALS: BP 135/81; PULSE 68; RESP 16; TEMP 36.8; O2SAT 98
--- NOTE | 2022-11-16 08:42 | PM.PN ---
Subjective Subjective: 1 day status post right great toe amputation and left great toe debridement. Doing well postoperatively. Denies any pain. Tolerating regular diet. Patient denies any subjective nausea, vomiting, fever, chills, shortness of breath or chest pain. Vitals/I&O/Wt Last Vital Signs Temp 98.6 F 11/16/22 04:00 Pulse 66 11/16/22 04:00 Resp 20 H 11/16/22 04:00 BP 123/78 11/16/22 04:00 Pulse Ox 97 11/16/22 04:00 O2 Del Method Room Air 11/15/22 07:45 O2 Flow Rate 6 11/15/22 07:31 11/15/22 11/16/22 11/16/22 22:59 06:59 14:59 Intake Total 350 / 1700 400 / 2100 300 / 300 Balance 350 / 1700 400 / 2100 300 / 300 Weight last 48 hrs Weight 190 lb Weight 190 lb Physical Exam Narrative: GENERAL: Patient is alert and oriented ?3 and in no acute distress. The following is a focused bilateral lower extremity exam. VASCULAR: Dorsalis pedis palpable +1 left and right foot. Posterior tibial arteries +2. Capillary refill time less than 3 seconds to the left hallux delayed capillary refill to the tuft of the right great toe. Calf is supple and nontender proximally and distally. Decreased growth. Focal edema to the right great toe. NEUROLOGICAL: Protective sensation intact 0/10 sites, tested with [place] Arlen monofilament to bilateral feet. DERMATOLOGICAL: Surgical dressing left intact to the right foot, no proximal lymphangitic streaking. No strikethrough bleeding. Stable left great toe wound without acute signs of infection. MUSCULOSKELETAL: No pain to palpation or with debridement bilateral foot secondary to neuropathy. Ankle joint dorsiflexion is 5 degrees beyond neutral bilaterally. Muscle strength +5 in all 3 planes bilateral foot and ankle. 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 [place] grade 2 wound to the left great toe without acute signs of infection. 1 day status post right great toe amputation at metatarsophalangeal joint. Date of operation 11/15/2022 Cultures pending Continuing empiric IV antibiotics Heel touch for transfers with OrthoWedge heel, elevate while resting. We will reevaluate tomorrow and check soft tissue at the amputation site, should clinical improvement be appreciated would plan for primary delayed closure Friday at noon 11/18/2022 Podiatry will follow Attestations Medical Necessity Statement*: Diabetic foot infection Coding Level of Care Code Acute Code for [facility] Diagnoses Diabetic peripheral neuropathy associated with type 2 diabetes mellitus E11.42 Osteomyelitis of great toe of right foot M86.9 Cellulitis of right foot L03.115 Non-pressure chronic ulcer of other part of right foot with necrosis of bone L97.514 Non-pressure chronic ulcer of other part of left foot with fat layer exposed L97.522
[2022-11-16] MEDS: aspirin 81 mg EC Tablet PO (09:05)
[2022-11-16] MEDS: insulin lispro 100 unit/1 mL SUBCUT ×4 (09:05→20:50)
[2022-11-16] MEDS: insulin glargine 100 units/1 mL 5 UNIT SUBCUT ×2 (09:05→20:50)
[2022-11-16] MEDS: heparin 5,000 unit/mL INJ 1 mL 5000 UNIT SUBCUT ×2 (09:06→20:50)
[2022-11-16 12:00] VITALS: BP 148/79; PULSE 69; RESP 16; TEMP 36.8; O2SAT 97
[2022-11-16 12:00] LABS: Glucose Point of Care 221 mg/dL (70-110)
--- NOTE | 2022-11-16 12:06 | PM.PN ---
Subjective Subjective: Patient was seen this morning, his complaint is that he did not get sleep overnight Vitals/I&O/Wt Last Vital Signs Temp 98.3 F 11/16/22 08:00 Pulse 68 11/16/22 08:00 Resp 16 11/16/22 08:00 BP 135/81 11/16/22 08:00 Pulse Ox 98 11/16/22 08:00 O2 Del Method Room Air 11/16/22 08:00 O2 Flow Rate 6 11/15/22 07:31 11/15/22 11/16/22 11/16/22 22:59 06:59 14:59 Intake Total 350 / 1700 400 / 2100 658 / 658 Balance 350 / 1700 400 / 2100 658 / 658 Weight last 48 hrs Weight 86.183 kg Weight 86.183 kg Physical Exam Const: COMMON NORMALS: no acute distress and patient oriented x3 Resp: COMMON NORMALS: normal respiratory effort, No retractions, No use of accessory muscles and clear to auscultation bilaterally AUSCULTATION: clear to auscultation bilaterally Cardio: COMMON NORMALS: regular rate, regular rhythm, S1 normal heart sound present and S2 normal heart sound present RATE: regular rate RHYTHM: regular rhythm HEART SOUNDS: S1 normal heart sound present and S2 normal heart sound present GI: COMMON NORMALS: Normal to inspection, nondistended, normoactive bowel sounds present and non-tender Extremity: NARRATIVE EXTREMITY EXAM: Bilateral lower extremity wrapped Neuro: COMMON NORMALS: patient oriented x3 Psych: COMMON NORMALS: mental status grossly normal Data 11/16/22 03:00 11/16/22 03:00 Micro: Microbiology 11/14/22 19:20 Blood Culture - Preliminary Blood NEGATIVE TO DATE 11/14/22 19:20 Blood Culture - Preliminary Blood NEGATIVE TO DATE A&P Assessment and plan (1) Diabetic infection of right foot: (2) Hyponatremia: (3) Hyperglycemia: Plan #Diabetic foot infection #Osteomyelitis great toe right foot, status post right great toe amputation at metatarsophalangeal joint, with debridement of left great toe wound, postop day 0 #Diabetes mellitus untreated uncontrolled #Probable peripheral neuropathy #Former smoker #Hyponatremia 2/2 hyperglycemia #Mild HAGMA #History of CABG x2 #CAD status post PCI x1 stent -Low-dose sliding scale, with Lantus 5 units twice daily, monitor blood sugars closely ? Heparin SQ twice daily for DVT prophylaxis ? Sodium 133, improving - PT and OT - Check blood cultures, surgical cultures - Monitor vanco trough levels - Continue vancomycin and zosyn -Discussed with Dr. Khalil, -We will do vascular studies ?Patient will need PCP, cardiology, podiatry follow-up at discharge. He prefers to see a primary care physician with [facility] in [place]. Plan for today antibiotic therapy, monitor surgical site, monitor blood sugars, vascular studies Full Code SCDs, heparin subcu BID Attestations Medical Necessity Statement*: Patient requires hospitalization for diabetic foot infection Diagnoses Diabetic infection of right foot E11.628; L08.9 Hyponatremia E87.1 Hyperglycemia R73.9
[2022-11-16 14:25] LABS: Vancomycin Trough 14.3 ug/mL (10-15)
[2022-11-16 16:00] VITALS: BP 136/82; PULSE 73; RESP 16; TEMP 36.8; O2SAT 97
[2022-11-16 17:22] LABS: Glucose Point of Care 248 mg/dL (70-110)
[2022-11-16 20:00] VITALS: BP 132/80; PULSE 70; RESP 17; TEMP 36.9; O2SAT 96
[2022-11-16] MEDS: atorvastatin 40 mg Tablet PO (20:49)
[2022-11-16 21:44] LABS: Glucose Point of Care 221 mg/dL (70-110)
[2022-11-16] MEDS: zolpidem 5 mg Tablet 2.5 MG PO (23:17)
[2022-11-17] VITALS (7 sets, daily range): BP systolic 120–156; BP diastolic 69–90; PULSE 65–77; RESP 16–18; TEMP 36.4–36.8; O2SAT 94–98
[2022-11-17] MEDS: HYDROcodone-acetaminophen 5-325 mg Tablet 1 TAB PO ×4 (01:46→21:41)
[2022-11-17] MEDS: piperacillin-tazobactam 3.375 GM in sodium chloride 0.9% (plus) 50 ML IV ×3 (02:33→21:42)
[2022-11-17 04:38] LABS: Hematocrit 38.6 % (42.0-52.0); Hemoglobin 12.8 g/dL (11.7-16.6); Mean Corpuscular HGB Conc 33.2 g/dL (30.0-36.0); Mean Corpuscular Hemoglobin 28.3 pg (28.0-34.0); Mean Corpuscular Volume 85.4 fl (80-94); Mean Platelet Volume 10.6 fL (7.4-10.4); Platelet Count 299 10^3/cmm (130-400); Red Blood Count 4.52 10^6/uL (4.1-5.3); Red Cell Distribution Width 11.4 % (12.1-15.1); White Blood Count 7.9 10^3/uL (4.0-10.0)
[2022-11-17 04:56] LABS: Slide Review Slide Review Perform
[2022-11-17 05:01] LABS: Anion Gap 10.6 (5-19); Blood Urea Nitrogen 8 mg/dL (8-23); Calcium 8.6 mg/dL (8.5-10.5); Carbon Dioxide 26 mmol/L (22-29); Chloride 96 mmol/L (98-107); Glomerular Filtration Rate 167.9 mL/min (90-130); Glucose 110 mg/dL (65-115); Osmolality Calculated 267 mOsm/kg (285-295); Potassium 3.6 mmol/L (3.5-5.1); Sodium 129 mmol/L (136-145)
[2022-11-17 05:15] LABS: Band Neutrophils Absolute 0.1 10^3/cmm (0.0-1.2); Lymphocytes 19 %; Monocytes Absolute 0.6 10^3/cmm (0.1-0.6); Total Cells Counted 100 (0-100)
[2022-11-17 05:16] LABS: Absolute Eosinophils 0.4 10^3/cmm (0.0-0.7); Absolute Segmented Neutrophil 4.9 10/cmm (1.6-7.1); Eosinophils 6 %; Lymphocytes Absolute 1.5 10^3/cmm (1.2-3.4); Segmented Neutrophils 62 %
[2022-11-17 05:21] LABS: Platelet Estimate Normal (Normal)
[2022-11-17 07:04] LABS: Glucose Point of Care 142 mg/dL (70-110)
--- NOTE | 2022-11-17 09:25 | P.PN_ITS ---
Subjective Subjective: Patient seen bedside this morning. He denies any acute events overnight. Denies any pain to the right foot. He is 2 days status post right hallux amputation secondary to osteomyelitis. He is today status post left great toe wound debridement. Completed his vascular studies. Wound cultures are resulted. Patient denies any subjective nausea, vomiting, fever, chills, shortness of breath or chest pain. Vitals/I&O/Wt Last Vital Signs Temp 97.8 F 11/17/22 08:00 Pulse 67 11/17/22 08:00 Resp 18 11/17/22 08:00 BP 148/90 11/17/22 08:00 Pulse Ox 98 11/17/22 08:00 O2 Del Method Room Air 11/17/22 08:00 O2 Flow Rate 6 11/15/22 07:31 11/16/22 11/17/22 11/17/22 22:59 06:59 14:59 Intake Total 940 / 1838 880 / 2718 Balance 940 / 1838 880 / 2718 Physical Exam Narrative: GENERAL: Patient is alert and oriented ?3 and in no acute distress. The following is a focused bilateral lower extremity exam. VASCULAR: Dorsalis pedis palpable +1 left and right foot. Posterior tibial arteries +2. Capillary refill time less than 3 seconds to the left hallux delayed capillary refill to the tuft of the right great toe. Calf is supple and nontender proximally and distally. Decreased growth. Focal edema to the right great toe. NEUROLOGICAL: Protective sensation intact 0/10 sites, tested with [place] Arlen monofilament to bilateral feet. DERMATOLOGICAL: Left foot wound Sub left hallux measures 2 mm x 2 mm x 2 mm, no periwound erythema, no purulent drainage, does not probe to bone. Right hallux amputation site shows viable skin flaps with improved skin tone color, resolving erythema, no purulence expressed, no proximal lymphangitic streaking. MUSCULOSKELETAL: No pain to palpation or with debridement bilateral foot secondary to neuropathy. Ankle joint dorsiflexion is 5 degrees beyond neutral bilaterally. Muscle strength +5 in all 3 planes bilateral foot and ankle. Status post right great toe amputation Data 11/17/22 03:54 11/17/22 03:54 Micro: Microbiology 11/15/22 Unknown Gram Stain - Final Other Source Tissue Culture - Preliminary 11/14/22 22:30 Wound Culture - Preliminary Toe - Right Big Gram Negative Rods A&P Assessment and plan (1) Diabetic peripheral neuropathy associated with type 2 diabetes mellitus: (2) Osteomyelitis of great toe of right foot: (3) Cellulitis of right foot: (4) Non-pressure chronic ulcer of other part of right foot with necrosis of bone: (5) Non-pressure chronic ulcer of other part of left foot with fat layer exposed: Plan 61-year-old uncontrolled diabetic male with acute osteomyelitis and cellulitis to the right great toe. Cordova grade 2 wound to the left great toe without acute signs of infection. 2 days status post right great toe amputation at metatarsophalangeal joint. Date of operation 11/15/2022 Vascular studies complete, ankle-brachial index is 1.1 bilaterally, normal waveforms. Completed 11/15/2022 Wound culture significant for Proteus vulgaris, this was a wound culture taken of the right great toe postdebridement bedside on 11/14/2022. Wound culture taken intraoperatively on 11/15/2022 of the right great toe significant for Morganella morganii Continuing empiric IV antibiotics Patient to use OrthoWedge heel offloading shoe on the left and right foot when weightbearing. He is to elevate his right foot while resting. Patient to be n.p.o. at midnight Scheduled for delayed closure tomorrow at noon 11/18/22 From podiatry standpoint potential discharge on 11/19/2022 on oral antibiotics for 2 weeks, culture sensitive to Levaquin or Bactrim, will discuss antibiotic selection with hospitalist. Podiatry will follow Attestations Medical Necessity Statement*: Diabetic foot infection Coding Level of Care Code Acute Code for [facility] Diagnoses Diabetic peripheral neuropathy associated with type 2 diabetes mellitus E11.42 Osteomyelitis of great toe of right foot M86.9 Cellulitis of right foot L03.115 Non-pressure chronic ulcer of other part of right foot with necrosis of bone L97.514 Non-pressure chronic ulcer of other part of left foot with fat layer exposed L97.522
[2022-11-17] MEDS: vancomycin 1,500 MG/300 ML PIGGYBACK 200 MG IV ×2 (10:52→18:20)
[2022-11-17] MEDS: insulin lispro 100 unit/1 mL SUBCUT ×3 (10:55→21:42)
[2022-11-17] MEDS: aspirin 81 mg EC Tablet PO (10:55)
[2022-11-17] MEDS: insulin glargine 100 units/1 mL 5 UNIT SUBCUT ×2 (10:56→21:41)
[2022-11-17] MEDS: heparin 5,000 unit/mL INJ 1 mL 5000 UNIT SUBCUT ×2 (10:56→21:41)
[2022-11-17 12:09] LABS: Glucose Point of Care 301 mg/dL (70-110)
--- NOTE | 2022-11-17 14:09 | PC.SOCIAL ---
Pg 2 IMM. Explained to pt Pg 2 IMM. No questions voiced. Provided pt a copy. Initialed, dated, & timed a copy & placed in chart.
--- NOTE | 2022-11-17 16:03 | PM.PN ---
Subjective Subjective: Patient was seen this morning, he has no complaints this morning he did have diarrhea overnight Vitals/I&O/Wt Last Vital Signs Temp 98.2 F 11/17/22 15:52 Pulse 69 11/17/22 15:52 Resp 18 11/17/22 15:52 BP 124/69 11/17/22 15:52 Pulse Ox 95 11/17/22 15:52 O2 Del Method Room Air 11/17/22 15:52 O2 Flow Rate 6 11/15/22 07:31 11/17/22 11/17/22 11/17/22 06:59 14:59 22:59 Intake Total 880 / 2718 900 / 900 Balance 880 / 2718 900 / 900 Physical Exam Const: COMMON NORMALS: no acute distress and patient oriented x3 HENMT: COMMON NORMALS: normocephalic HEAD & SCALP: normocephalic Cardio: COMMON NORMALS: regular rate, regular rhythm, S1 normal heart sound present and S2 normal heart sound present RATE: regular rate RHYTHM: regular rhythm HEART SOUNDS: S1 normal heart sound present and S2 normal heart sound present GI: COMMON NORMALS: Normal to inspection, nondistended, normoactive bowel sounds present and non-tender Extremity: COMMON NORMALS: no pedal edema NARRATIVE EXTREMITY EXAM: Bilateral lower extremity wrapped Neuro: COMMON NORMALS: patient oriented x3 Psych: COMMON NORMALS: mental status grossly normal Data 11/17/22 03:54 11/17/22 03:54 Micro: Microbiology 11/14/22 22:30 Wound Culture - Final Toe - Right Big Proteus vulgaris 11/15/22 Unknown Gram Stain - Final Other Source Tissue Culture - Final Morganella morganii A&P Assessment and plan (1) Diabetic infection of right foot: (2) Hyponatremia: (3) Hyperglycemia: Plan #Diabetic foot infection #Osteomyelitis great toe right foot, status post right great toe amputation at metatarsophalangeal joint, with debridement of left great toe wound, postop day 2 #Diabetes mellitus untreated uncontrolled #Probable peripheral neuropathy #Former smoker #Hyponatremia 2/2 hyperglycemia #Mild HAGMA #History of CABG x2 #CAD status post PCI x1 stent -Low-dose sliding scale, with Lantus 5 units twice daily, monitor blood sugars closely ? Heparin SQ twice daily for DVT prophylaxis ? Sodium 129, improving - PT and OT - Check blood cultures, surgical cultures - Monitor vanco trough levels - Continue vancomycin and zosyn -Discussed with Dr. Khalil, plan on closure tomorrow ?Patient will need PCP, cardiology, podiatry follow-up at discharge. He prefers to see a primary care physician with [facility] in [place]. Plan for today antibiotic therapy, monitor surgical site, monitor blood sugars Full Code SCDs, heparin subcu BID Attestations Medical Necessity Statement*: Patient requires hospitalization for diabetic foot infection going for primary care tomorrow morning Diagnoses Diabetic infection of right foot E11.628; L08.9 Hyponatremia E87.1 Hyperglycemia R73.9
[2022-11-17 16:49] LABS: Glucose Point of Care 168 mg/dL (70-110)
[2022-11-17 20:44] LABS: Glucose Point of Care 355 mg/dL (70-110)
[2022-11-17] MEDS: zolpidem 5 mg Tablet 2.5 MG PO (21:41)
[2022-11-17] MEDS: atorvastatin 40 mg Tablet PO (21:41)
[2022-11-18] VITALS (10 sets, daily range): BP systolic 119–152; BP diastolic 83–92; PULSE 62–82; RESP 16–18; TEMP 36.1–36.8; O2SAT 95–98
[2022-11-18] MEDS: vancomycin 1,500 MG/300 ML PIGGYBACK 200 MG IV ×2 (01:51→08:47)
[2022-11-18] MEDS: piperacillin-tazobactam 3.375 GM in sodium chloride 0.9% (plus) 50 ML IV ×2 (03:19→21:57)
[2022-11-18] MEDS: HYDROcodone-acetaminophen 5-325 mg Tablet 1 TAB PO ×2 (03:19→16:43)
[2022-11-18 05:45] LABS: Basophils # 0.1 10^3/uL (0.0-0.1); Eosinophils # 0.3 10^3/uL (0.0-0.8); Eosinophils % 3.5 %; Hematocrit 41.7 % (42.0-52.0); Hemoglobin 13.8 g/dL (11.7-16.6); Lymphocytes # 1.8 10^3/uL (0.8-4.8); Lymphocytes % 21.8 %; Mean Corpuscular HGB Conc 33.1 g/dL (30.0-36.0); Mean Corpuscular Hemoglobin 28.5 pg (28.0-34.0); Mean Platelet Volume 10.3 fL (7.4-10.4); Monocytes # 0.5 10^3/uL (0.2-0.9); Monocytes % 6.2 %; Neutrophils # 4.75 10^3/uL (1.8-7.7); Neutrophils % 59.2 %; Nucleated Red Blood Cells % 0 %; Platelet Count 366 10^3/cmm (130-400); Red Blood Count 4.85 10^6/uL (4.1-5.3); Red Cell Distribution Width 11.3 % (12.1-15.1)
[2022-11-18 06:05] LABS: Slide Review Slide Review Perform
[2022-11-18 06:09] LABS: Anion Gap 10.9 (5-19); Blood Urea Nitrogen 10 mg/dL (8-23); Calcium 8.6 mg/dL (8.5-10.5); Carbon Dioxide 27 mmol/L (22-29); Chloride 98 mmol/L (98-107); Glomerular Filtration Rate 136.1 mL/min (90-130); Glucose 148 mg/dL (65-115); Osmolality Calculated 276 mOsm/kg (285-295); Potassium 3.9 mmol/L (3.5-5.1); Sodium 132 mmol/L (136-145)
--- NOTE | 2022-11-18 06:35 | PM.PN ---
Subjective Subjective: Patient seen bedside this morning. He denies any acute events overnight. Denies any pain to the right foot. He is 2 days status post right hallux amputation secondary to osteomyelitis. He is today status post left great toe wound debridement. Completed his vascular studies. Wound cultures are resulted. Has been n.p.o. since midnight. Patient denies any subjective nausea, vomiting, fever, chills, shortness of breath or chest pain. Vitals/I&O/Wt Last Vital Signs Temp 97.8 F 11/18/22 03:52 Pulse 62 11/18/22 03:52 Resp 18 11/18/22 03:52 BP 152/90 11/18/22 03:52 Pulse Ox 98 11/18/22 03:52 O2 Del Method Nasal Cannula 11/18/22 03:52 O2 Flow Rate 6 11/15/22 07:31 11/17/22 11/17/22 11/18/22 14:59 22:59 06:59 Intake Total 900 / 900 590 / 1490 350 / 1840 Output Total 700 / 700 1400 / 2100 Balance 900 / 900 -110 / 790 -1050 / -260 Physical Exam Narrative: GENERAL: Patient is alert and oriented ?3 and in no acute distress. The following is a focused bilateral lower extremity exam. VASCULAR: Dorsalis pedis palpable +1 left and right foot. Posterior tibial arteries +2. Capillary refill time less than 3 seconds to the left hallux delayed capillary refill to the tuft of the right great toe. Calf is supple and nontender proximally and distally. Decreased growth. Focal edema to the right great toe. NEUROLOGICAL: Protective sensation intact 0/10 sites, tested with [place] Arlen monofilament to bilateral feet. DERMATOLOGICAL: Left foot wound Sub left hallux measures 2 mm x 2 mm x 2 mm, no periwound erythema, no purulent drainage, does not probe to bone. Right hallux amputation site shows viable skin flaps with improved skin tone color, resolving erythema, no purulence expressed, no proximal lymphangitic streaking. MUSCULOSKELETAL: No pain to palpation or with debridement bilateral foot secondary to neuropathy. Ankle joint dorsiflexion is 5 degrees beyond neutral bilaterally. Muscle strength +5 in all 3 planes bilateral foot and ankle. Status post right great toe amputation Data 11/18/22 05:21 11/18/22 05:21 Micro: Microbiology 11/17/22 21:03 Occult Blood (FIT) - Final Stool - Stool Aspirate 11/17/22 21:03 C.difficile Toxin B Gene (PCR) - Final Stool - Stool Aspirate 11/14/22 22:30 Wound Culture - Final Toe - Right Big Proteus vulgaris 11/15/22 Unknown Gram Stain - Final Other Source Tissue Culture - Final Morganella morganii A&P Assessment and plan (1) Diabetic peripheral neuropathy associated with type 2 diabetes mellitus: (2) Osteomyelitis of great toe of right foot: (3) Cellulitis of right foot: (4) Non-pressure chronic ulcer of other part of right foot with necrosis of bone: (5) Non-pressure chronic ulcer of other part of left foot with fat layer exposed: Plan 61-year-old uncontrolled diabetic male with acute osteomyelitis and cellulitis to the right great toe. Cordova grade 2 wound to the left great toe without acute signs of infection. 2 days status post right great toe amputation at metatarsophalangeal joint. Date of operation 11/15/2022 Vascular studies complete, ankle-brachial index is 1.1 bilaterally, normal waveforms. Completed 11/15/2022 Wound culture significant for Proteus vulgaris, this was a wound culture taken of the right great toe postdebridement bedside on 11/14/2022. Wound culture taken intraoperatively on 11/15/2022 of the right great toe significant for Morganella morganii Continuing empiric IV antibiotics Patient to use OrthoWedge heel offloading shoe on the left and right foot when weightbearing. He is to elevate his right foot while resting. Has been n.p.o. since midnight in preparation for surgery this afternoon. Scheduled for delayed closure today at noon From podiatry standpoint potential discharge on 11/19/2022 on oral antibiotics for 2 weeks, culture sensitive to Levaquin or Bactrim, will discuss antibiotic selection with hospitalist. Podiatry will follow Attestations Medical Necessity Statement*: Diabetic foot infection Coding Level of Care Code Acute Code for [facility] Diagnoses Diabetic peripheral neuropathy associated with type 2 diabetes mellitus E11.42 Osteomyelitis of great toe of right foot M86.9 Cellulitis of right foot L03.115 Non-pressure chronic ulcer of other part of right foot with necrosis of bone L97.514 Non-pressure chronic ulcer of other part of left foot with fat layer exposed L97.522
[2022-11-18 06:36] LABS: Glucose Point of Care 155 mg/dL (70-110)
[2022-11-18] MEDS: insulin glargine 100 units/1 mL 5 UNIT SUBCUT (09:38)
[2022-11-18 11:11] LABS: Glucose Point of Care 123 mg/dL (70-110)
[2022-11-18] MEDS: sodium chloride 0.9% 1,000 ML 30 ML IV (11:25)
--- NOTE | 2022-11-18 11:35 | PC.NURSE ---
1125 - 20g iv started to right forearm. pt john well.
--- NOTE | 2022-11-18 11:49 | W.PM.OPSUD ---
Surgery/Procedure H&P Update DATE OF PROCEDURE: November 18, 2022 DATE H&P PERFORMED: 11/14/22 CHANGES TO PREVIOUS DOCUMENTATION: none PLANNED PROCEDURE: Operation Date: 11/15/22 07:00 Proposed Procedures p Amputation Toe/s(Right) - Eric Khalil DPM Operation Date: 11/18/22 12:00 Proposed Procedures p Delayed Wound Closure right foot(Right) - Eric Khalil DPM
[2022-11-18] MEDS: lidocaine 1% INJ 10 mL (per mL) XX (12:18)
--- NOTE | 2022-11-18 12:41 | P.OP_ITS ---
Operative Report Date of procedure: November 18, 2022 Pre-op diagnosis: Osteomyelitis right great toe Cellulitis right foot Diabetic foot ulcer, left great toe exposed to fat layer Status post right great toe amputation Post-op diagnosis: Status post right great toe amputation Post-op findings: Improved soft tissue quality postdebridement Procedure done: Primary delayed closure right foot. CPT code 42564 Implants: 4-0 Vicryl, 3-0 nylon, 4-0 nylon Specimens removed/disposition: None Pathology: None Surgeon: Eric Khalil D.P.M. Saddle Stitching Machine Operator: Shayla Estimated blood loss: Less than 5 14 IV fluids: 0 Urine output: 0 Complications: None Brief History: Patient under right hallux amputation and second third toe myelitis and acute cellulitis. Soft tissue quality was poor at the amputation site postoperatively. Required IV antibiotics for the past 3 days which has improved soft tissue quality. He presents for further surgical debridement and primary delayed closure. Procedure: Under mild sedation was brought to the operating room and remained on the gurney in supine position. A timeout was performed. Anesthesia was administered by the anesthesia service. Local anesthesia was injected by myself consisting of 20 cc of one-to-one mixture 1% lidocaine and 0.5% Marcaine plain in a right Lebron block fashion. A well-padded pneumatic tourniquet was applied to the right ankle. The right lower extremity was scrubbed, prepped and draped utilizing normal aseptic technique. Right foot was elevated and the right ankle tourniquet was then inflated to 250 mmHg. Attention was directed to the dorsal medial aspect of the right foot where a right hallux amputation site was appreciated. The dorsal and plantar skin flap had some devitalized tissue that was sharply debrided with pickups and a #15 blade down to fresh skin margins. There was remaining soft tissue coverage adequate to cover the amputation site for primary delayed closure. Further debridement was performed down to and including subcutaneous tissue and myofascial layer sharply with pickups and a 15 blade followed by copious amounts of irrigation with sterile saline solution. The head of the first metatarsal was inspected had appropriate density and color. No signs of devitalized bone or cartilage surface appreciated. Further irrigation was performed. The surgical wound measured 5 cm. A fishmouth incision was then closed utilizing a layered fashion. Subcutaneous and myofascial layer closed with 4-0 Vicryl. Subcutaneous tissue closed with 4-0 Vicryl and skin closed with a combination of 4-0 nylon and 3-0 nylon utilizing simple interrupted suture. The skin margins approximated nicely without excessive tension. The incision was dressed with Adaptic, sterile 4 x 4's, Kerlix and Coban. Tourniquet was deflated and a prompt hyperemic response was noted to the remaining distal digits of the right foot. Patient tolerated the procedure and anesthesia well and was transferred to the PACU with vital signs stable and vascular status intact. Following a period of postop monitoring he will be transferred back to the floor. We will continue empiric of antibiotics overnight. We will repeat evaluation tomorrow morning for potential discharge tomorrow. Will discuss with hospitalist antibiotic selection for the next 2 weeks orally, Levaquin or Bactrim or Pilling options based off of sensitivities. He is to weight-bear for short transfers only and perform heel touch with his [place] OrthoWedge heel.
--- NOTE | 2022-11-18 13:06 | P.ANESASSM_ITS ---
Pre-Anesthetic Assessment Height/Weight: Height 1.78 m Weight 86.183 kg Temp Pulse Resp BP Pulse Ox O2 Del Method O2 Flow Rate 97.0 F L 73 17 132/83 95 Room Air 6 11/18/22 12:46 11/18/22 12:46 11/18/22 12:46 11/18/22 12:46 11/18/22 12:46 11/18/22 12:46 11/18/22 12:32 Operation Date: 11/15/22 07:00 Proposed Procedures p Amputation Toe/s(Right) - Eric Khalil DPM Operation Date: 11/18/22 12:00 Proposed Procedures p Delayed Wound Closure right foot(Right) - Eric Khalil DPM Familial anesthetic complications: none Was Beta Torri taken within 24 hours: N/A Was Clonidine taken within 24 hours: N/A Last intake: Intake Last Liquid Date 11/17/22 Last Solid Date 11/17/22 Last Solid Time 22:00 Social No alcohol and No tobacco Exam alert, oriented x 3, clear to auscultation bilaterally and regular rate & rhythm Airway Submandibular: within normal limits Cervical ROM: within normal limits Mallampati: Class II Dentition: false CV/HEM Anemia, Coronary Artery Disease (stent) and Hypertension Metabolic Diabetes Mellitus and Morbid Obesity Neuropsych Neuropathy Anesthetic Plan ASA status: 3 Anesthesia: Choice Medications/Allergies Home Medications Medication Instructions Recorded Confirmed Last Taken Type aspirin 81 mg tablet,delayed 81 mg PO DAILY 11/14/22 11/14/22 11/13/22 21:00 History release OrthoWedge heel shoe to Left and #1 ea 11/15/22 Unknown Rx Right Foot Allergies Allergy/AdvReac Type Severity Reaction Status Date / Time No Known Allergies Allergy Verified 11/14/22 14:40 Current Medications Generic Name Dose Route Start Last Admin Trade Name Freq PRN Reason Stop Dose Admin Acetaminophen 650 mg 11/14/22 21:06 11/15/22 15:04 Acetaminophen 325 Mg Tablet PO 650 mg Q6H PRN Administration Mild/Mod Pain Or Temp >/= 101 Hydrocodone Bitart/Acetaminophen 1 tab 11/15/22 15:29 11/18/22 03:19 Hydrocodone-Acetaminophen 5-325 Mg Tablet PO 1 tab Q6H PRN Administration MODERATE PAIN Aspirin 81 mg 11/16/22 09:00 11/18/22 09:11 Aspirin 81 Mg Ec Tablet PO Not Given DAILY RG Atorvastatin Calcium 40 mg 11/15/22 21:00 11/17/22 21:41 Atorvastatin 40 Mg Tablet PO 40 mg BEDTIME RG Administration Heparin Sodium (Porcine) 5,000 unit 11/14/22 21:15 11/18/22 09:11 Heparin 5,000 Unit/Ml Inj 1 Ml SUBCUT Not Given Q12H RG Piperacillin Sod/Tazobactam 50 mls @ 12.5 mls/hr 11/15/22 01:30 11/18/22 07:58 Sod 3.375 gm/ Sodium Chloride IV Infused Q8H RG Infusion Vancomycin/PEG/NADA/Lysine/Water 1,500 mg in 300 mls @ 200 mls/hr 11/18/22 01:00 11/18/22 10:18 Vancocin IV Infused Q8H RG Infusion Insulin Glargine 5 unit 11/15/22 09:00 11/18/22 09:38 Insulin Glargine 100 Units/1 Ml SUBCUT 5 unit Q12H RG Administration Insulin Human Lispro 0 unit 11/14/22 23:15 11/18/22 09:11 Insulin Lispro 100 Unit/1 Ml SUBCUT Not Given WM&BEDTIME [facility] Protocol Zolpidem Tartrate 2.5 mg 11/16/22 20:31 11/17/22 21:41 Zolpidem 5 Mg Tablet PO 2.5 mg BEDTIME PRN Administration SLEEP PFSH Anesthesia Medical History (Updated 11/15/22 @ 00:31 by Eric Khalil DPM) Diabetes Surgical History (Updated 11/14/22 @ 18:59 by Ray Jackson MD) No significant past surgical history Social History (Updated 11/14/22 @ 18:59 by Ray Jackson MD) Smoking and tobacco status: former smoker Data Anesthesia 11/18/22 05:21 11/18/22 05:21 Short CBC 11/17/22 11/18/22 Range/Units 03:54 05:21 WBC 7.9 8.0 (4.0-10.0) 10^3/uL Hgb 12.8 13.8 (11.7-16.6) g/dL Hct 38.6 L 41.7 L (42.0-52.0) % MCV 85.4 86.0 (80-94) fl Plt Count 299 366 (130-400) 10^3/cmm Neut % (Auto) 59.2 % Neut # (Auto) 4.75 (1.8-7.7) 10^3/uL BMP 11/17/22 11/18/22 03:54 05:21 Sodium 129 L 132 L Potassium 3.6 3.9 Chloride 96 L 98 Carbon Dioxide 26 27 BUN 8 10 Creatinine 0.5 L 0.6 L Glucose 110 148 H Calcium 8.6 8.6 Microbiology 11/17/22 21:03 Occult Blood (FIT) - Final Stool - Stool Aspirate 11/17/22 21:03 C.difficile Toxin B Gene (PCR) - Final Stool - Stool Aspirate 11/14/22 22:30 Wound Culture - Final Toe - Right Big Proteus vulgaris 11/15/22 Unknown Gram Stain - Final Other Source Tissue Culture - Final Morganella morganii Cardiac Studies: No Data to Display
--- NOTE | 2022-11-18 15:05 | ANE.PACU2 ---
Inpatient post-anesthesia follow up: Airway intact: Yes Vital signs: Temperature 97.6 F Pulse Rate 82 Respiratory Rate 16 Blood Pressure 137/88 Pulse Oximetry 97 Oxygen Delivery Me thod Room Air Oxygen Flow Rate 6 Fraction of Inspir ed Oxygen Hydration adequate: Yes Nausea and vomiting: No Pain level: 1 Mental status: Baseline
--- NOTE | 2022-11-18 15:19 | P.PN_ITS ---
Subjective Subjective: Hospital course, labs appreciated. Today morning seen post primary delayed closure of right foot operative wound. Tolerated procedure well. Patient seems comfortable. Denies any nausea, vomiting, headache. Has remained hemodynamically stable and afebrile. Remains on room air. Vitals/I&O/Wt Last Vital Signs Temp 97.6 F 11/18/22 13:30 Pulse 82 11/18/22 13:30 Resp 16 11/18/22 13:30 BP 137/88 11/18/22 13:30 Pulse Ox 97 11/18/22 13:30 O2 Del Method Room Air 11/18/22 13:30 O2 Flow Rate 6 11/18/22 12:32 11/18/22 11/18/22 11/18/22 06:59 14:59 22:59 Intake Total 350 / 1840 424 / 424 Output Total 1400 / 2100 752 / 752 Balance -1050 / -260 -328 / -328 Physical Exam Const: COMMON NORMALS: no acute distress and patient oriented x3 HENMT: COMMON NORMALS: normocephalic HEAD & SCALP: normocephalic Resp: COMMON NORMALS: normal respiratory effort, No retractions, No use of accessory muscles and clear to auscultation bilaterally AUSCULTATION: clear to auscultation bilaterally Cardio: COMMON NORMALS: regular rate, regular rhythm, S1 normal heart sound present and S2 normal heart sound present RATE: regular rate RHYTHM: regular rhythm HEART SOUNDS: S1 normal heart sound present and S2 normal heart sound present GI: COMMON NORMALS: Normal to inspection, nondistended, normoactive bowel sounds present and non-tender Extremity: COMMON NORMALS: no pedal edema NARRATIVE EXTREMITY EXAM: Bilateral lower extremity wrapped Neuro: COMMON NORMALS: patient oriented x3 Psych: COMMON NORMALS: mental status grossly normal Data 11/18/22 05:21 11/18/22 05:21 Micro: Microbiology 11/17/22 21:03 Occult Blood (FIT) - Final Stool - Stool Aspirate 11/17/22 21:03 C.difficile Toxin B Gene (PCR) - Final Stool - Stool Aspirate 11/14/22 22:30 Wound Culture - Final Toe - Right Big Proteus vulgaris 11/15/22 Unknown Gram Stain - Final Other Source Tissue Culture - Final Morganella morganii A&P Assessment and plan (1) Osteomyelitis of great toe of right foot: S/p right great toe amputation day 3. Delayed closure day 0. Appreciate OR cultures. Cultures growing Morganella. Sensitivities appreciated. Stop vancomycin. Continue with Zosyn. On discharge can switch to Levaquin as per culture sensitivities. Blood cultures so far negative. Patient has remained hemodynamically stable and afebrile. Leukocytosis has resolved. PT/OT/weightbearing as per orthopedic team. (2) Cellulitis of right foot: (3) Non-pressure chronic ulcer of other part of right foot with necrosis of bone: (4) Uncontrolled diabetes mellitus: A1c more than 12. Patient noncompliant. Has refused insulin on and off during hospitalization as well. Within last 24 hours required more than 30 units of insulin. Increase Lantus to 15 units nightly. Continue with sliding scale before meals and at bedtime. We will plan to discharge on insulin. Patient agreeable. Continue to monitor blood sugars. (5) Hyponatremia: Resolved. (6) Non-pressure chronic ulcer of other part of left foot with fat layer exposed: (7) Diabetic peripheral neuropathy associated with type 2 diabetes mellitus: Plan CAD: Patient s/p CABG/PCI: Continue with aspirin, statin. Appreciate A1c, lipid panel. No active chest pain. Need to follow-up with PCP and cardiology as an outpatient. Patient will need new outpatient follow-ups. Patient agreeable. Full code. Carb consistent diet. Heparin for DVT prophylaxis. Discharge planning: Plan to discharge in next 24 hours to home with walker with scheduled follow-up with podiatry, cardiology and PCP on insulin. Attestations Medical Necessity Statement*: Requires further hospitalization for foot osteomyelitis, s/p amputation and delayed closure in a patient with uncontrolled type 2 diabetes mellitus Diagnoses Osteomyelitis of great toe of right foot M86.9 Cellulitis of right foot L03.115 Non-pressure chronic ulcer of other part of right foot with necrosis of bone L97.514 Uncontrolled diabetes mellitus Hyponatremia E87.1 Non-pressure chronic ulcer of other part of left foot with fat layer exposed L 97.522 Diabetic peripheral neuropathy associated with type 2 diabetes mellitus E11.42
[2022-11-18 16:51] LABS: Glucose Point of Care 300 mg/dL (70-110)
[2022-11-18] MEDS: insulin lispro 100 unit/1 mL SUBCUT ×2 (17:39→21:57)
[2022-11-18 20:38] LABS: Glucose Point of Care 304 mg/dL (70-110)
[2022-11-18] MEDS: heparin 5,000 unit/mL INJ 1 mL 5000 UNIT SUBCUT (21:56)
[2022-11-18] MEDS: acetaminophen 325 mg Tablet 650 MG PO (21:56)
[2022-11-18] MEDS: atorvastatin 40 mg Tablet PO (21:56)
[2022-11-18] MEDS: insulin glargine 100 units/1 mL 15 UNIT SUBCUT (21:57)
[2022-11-19] VITALS: BP 157/80; PULSE 70; RESP 15; TEMP 36.8; O2SAT 96
[2022-11-19 03:59] VITALS: BP 144/83; PULSE 73; RESP 15; TEMP 36.8; O2SAT 98
[2022-11-19] MEDS: piperacillin-tazobactam 3.375 GM in sodium chloride 0.9% (plus) 50 ML IV (04:13)
--- NOTE | 2022-11-19 06:14 | P.PN_ITS ---
Subjective Subjective: Patient seen bedside this morning. He is status post right hallux amputation and subsequent primary delayed closure to the right hallux amputation site. Also has a wound left great toe that has been improving during his hospitalization. He is tolerating regular diet. Patient denies any subjective nausea, vomiting, fever, chills, shortness of breath or chest pain. He is anticipating discharge home today. He is in good spirits. Vitals/I&O/Wt Last Vital Signs Temp 98.3 F 11/19/22 03:59 Pulse 73 11/19/22 03:59 Resp 15 11/19/22 03:59 BP 144/83 11/19/22 03:59 Pulse Ox 98 11/19/22 03:59 O2 Del Method Room Air 11/19/22 03:59 O2 Flow Rate 6 11/18/22 12:32 11/18/22 11/18/22 11/19/22 14:59 22:59 06:59 Intake Total 424 / 424 0 / 424 50 / 474 Output Total 752 / 752 550 / 1302 Balance -328 / -328 0 / -328 -500 / -828 Physical Exam Narrative: GENERAL: Patient is alert and oriented ?3 and in no acute distress. The following is a focused bilateral lower extremity exam. VASCULAR: Dorsalis pedis palpable +1 left and right foot. Posterior tibial arteries +2. Capillary refill time less than 3 seconds to the left hallux delayed capillary refill to the tuft of the right great toe. Calf is supple and nontender proximally and distally. Decreased growth. Focal edema to the right great toe. NEUROLOGICAL: Protective sensation intact 0/10 sites, tested with [place] Arlen monofilament to bilateral feet. DERMATOLOGICAL: Previously documented wound to the left great toe is epithelialized at this time. Incision at the right hallux amputation site is well coapted, sutures intact, no piter-incisional erythema, no purulent drainage. MUSCULOSKELETAL: No pain to palpation or with debridement bilateral foot secondary to neuropathy. Ankle joint dorsiflexion is 5 degrees beyond neutral bilaterally. Muscle strength +5 in all 3 planes bilateral foot and ankle. Status post right great toe amputation Data 11/18/22 05:21 11/18/22 05:21 Micro: Microbiology 11/17/22 21:03 Occult Blood (FIT) - Final Stool - Stool Aspirate A&P Assessment and plan (1) Diabetic peripheral neuropathy associated with type 2 diabetes mellitus: (2) Osteomyelitis of great toe of right foot: (3) Non-pressure chronic ulcer of other part of right foot with necrosis of bone: Plan 61-year-old uncontrolled diabetic male with acute osteomyelitis and cellulitis to the right great toe. [place] grade 2 wound to the left great toe without acute signs of infection. 4 days for status post right great toe amputation at metatarsophalangeal joint. Date of operation 11/15/2022 1 day status post primary delayed closure performed 11/18/2022 Vascular studies complete, ankle-brachial index is 1.1 bilaterally, normal waveforms. Completed 11/15/2022 Patient to use OrthoWedge heel offloading shoe on the left and right foot when weightbearing. He is to elevate his right foot while resting. Left hallux wound is epithelialized at this time. Right hallux amputation site is stable without acute signs of infection. Resolved soft tissue cellulitis at the right lower extremity. Patient has responded well to to medical and surgical management of his right foot infection. -Patient is okay for discharge from podiatry standpoint. -Recommend 2 weeks of oral antibiotics for soft tissue. * Wound culture significant for Proteus vulgaris, this was a wound culture taken of the right great toe postdebridement bedside on 11/14/2022. * Wound culture taken intraoperatively on 11/15/2022 of the right great toe significant for Morganella morganii Patient to follow-up in podiatry clinic 11/26/2022 1:30 PM Attestations Medical Necessity Statement*: Osteomyelitis of right great toe Coding Level of Care Code Acute Code for [facility] Fwd Diagnoses Diabetic peripheral neuropathy associated with type 2 diabetes mellitus E11.42 Osteomyelitis of great toe of right foot M86.9 Non-pressure chronic ulcer of other part of right foot with necrosis of bone L97.514
[2022-11-19 06:35] LABS: Glucose Point of Care 213 mg/dL (70-110)
[2022-11-19 08:00] VITALS: BP 149/89; PULSE 70; RESP 18; TEMP 36.3; O2SAT 97
[2022-11-19] MEDS: insulin lispro 100 unit/1 mL SUBCUT (08:11)
[2022-11-19] MEDS: heparin 5,000 unit/mL INJ 1 mL 5000 UNIT SUBCUT (08:14)
[2022-11-19] MEDS: aspirin 81 mg EC Tablet PO (08:18)
[2022-11-19] MEDS: HYDROcodone-acetaminophen 5-325 mg Tablet 1 TAB PO (08:22)
--- NOTE | 2022-11-19 11:08 | PC.SOCIAL ---
Imm update Imm updated with patient at bedside. Copy of page 2 provided. Patient verbalized understanding. Copy in chart initialed, dated and timed.
[2022-11-19 11:16] LABS: Glucose Point of Care 216 mg/dL (70-110)
--- NOTE | 2022-11-19 11:19 | P.DS_ITS ---
Discharge Providers Date of Admission: 11/14/22 20:32 Date of Discharge: November 19, 2022 Attending Provider at Admission: Yumi Griffin MD Attending Provider at Discharge: Brannon Latham MD Consults: Podiatry: Dr. Khalil Primary Care Provider: Primitivo Crowder Diagnoses at Discharge Discharge Diagnosis (1) Diabetic peripheral neuropathy associated with type 2 diabetes mellitus: Status: Acute (2) Osteomyelitis of great toe of right foot: Status: Acute (3) Non-pressure chronic ulcer of other part of right foot with necrosis of bone: Status: Acute Reason for Visit Reason for Visit: Toe pain Brief History: History as per HPI: Hudson Griffin is a 61 year old male past medical history of diabetes however he claims he does not have it presenting to the ER with foot pain and redness.? He has an ulcer on his right great toe and left great toe for last 2 months however about 2 to 3 weeks ago he started noticing increased redness and swellin g.? He says it has gotten worse compared to his baseline.? He complains of pain at the toes which is worse when he tries to ambulate or touch the wound.? He denies any shortness of breath or chest pain however says he does have a mild cough.? He also feels generally weak.? Patient is not on any home medications and is not on any treatment for his diabetes and does not take check his sugar at home.? Endorses being a former smoker denies alcohol use.? He does not remember how he got the ulcers initially.? Denies any particular accident or trauma.? Says at 1 point in the past used to check his blood sugars and take his medications however then his sugar started becoming uncontrolled and then he stopped caring for it and stopped taking treatment.? He states when he feels well he never thinks to go to see a doctor and he has been well.? 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 Says he has a history of CABG x2 and has a history of CAD and has a stent placed as well.? Lives alone and says when she speaks to Jp Ambriz which is his friend in case he cannot make his own medical decisions. ED course: Blood pressure 144/89, respirate 16, pulse 111, temperature 99, saturating well on room air.? X-ray of toe obtained which showed mild swelling.? No air.? WBC 11.0, hemoglobin 15.2, ESR 49, sodium 129, potassium 4.2, carbon dioxide 21, BUN 15, creatinine 0.6 glucose 361, calcium 9.1.? Podiatry was consulted from the ER.? Dr. Khalil will evaluate the patient in consultation and give further recommendations.? Patient given a dose of vancomycin and Zosyn Hospital Course Hospital Course Patient was admitted to the hospital further evaluation and management of right diabetic foot cellulitis and osteomyelitis. Patient does have history of being noncompliant in the past with history of CAD/CABG, uncontrolled type 2 diabetes mellitus. Podiatry was consulted and he underwent right great toe amputation at metatarsophalangeal joint along with debridement of left great toe wound. Blood cultures during hospitalization remain negative, OR wound cultures came back positive for Morganella. Patient underwent delayed closure on 11/18. A1c was checked and came to be more than 11. For safe discharge planning home health has been arranged for wound care. He has been discharged in clinically stable condition on oral Levaquin as per culture sensitivities for next 2 weeks with advised to follow-up with Dr. Khalil within next 1 week on Lantus 25 units nightly and 8 units of lispro each meal. Physical Exam Const: COMMON NORMALS: no acute distress and patient oriented x3 HENMT: COMMON NORMALS: normocephalic HEAD & SCALP: normocephalic Resp: COMMON NORMALS: normal respiratory effort, No retractions, No use of accessory muscles and clear to auscultation bilaterally AUSCULTATION: clear to auscultation bilaterally Cardio: COMMON NORMALS: regular rate, regular rhythm, S1 normal heart sound present and S2 normal heart sound present RATE: regular rate RHYTHM: regular rhythm HEART SOUNDS: S1 normal heart sound present and S2 normal heart sound present GI: COMMON NORMALS: Normal to inspection, nondistended, normoactive bowel sounds present and non-tender Extremity: COMMON NORMALS: no pedal edema NARRATIVE EXTREMITY EXAM: Bilateral lower extremity wrapped Neuro: COMMON NORMALS: patient oriented x3 Psych: COMMON NORMALS: mental status grossly normal Discharge Data Studies Completed and Pending Completed Studies During Hospitalization Category Date Time Status CT foot LT w con [id number] Urgent Cat Scan 11/14/22 21:[address] foot RT w con [id number] Urgent Cat Scan 11/14/22 21:12 Completed XR chest 1V portable [id number] Stat Exams 11/14/22 18:46 Completed XR toe LT min 2V [id number] Stat Exams 11/14/22 18:06 Completed XR toe RT min 2V [id number] Stat Exams 11/14/22 18:04 Completed US abdomen complete* [id number] Routine Ultrasound 11/14/22 21:17 Completed US arterial duplex lower extremity bilat [CV arterial Ultrasound 11/15/22 14:14 [place] [id number]] Routine Pending at discharge Category Date Time Status Blood Culture Stat Lab 11/14/22 19:20 Results Pathology: Surgical [PTH] Routine Pth 11/15/22 07:29 Received Radiology Impressions Toe X-Ray 11/14/22 18:06 IMPRESSION: Mild swelling. Chest X-Ray 11/14/22 18:46 IMPRESSION: No acute infiltrate. Foot CT 11/14/22 21:16 IMPRESSION: 1. Small soft tissue ulceration seen on the plantar aspect of the 1st digit of the left foot with some surrounding edematous or inflammatory changes in the subcutaneous fat fascia. 2. There is no evidence for osteomyelitis in the current examination. Abdomen Ultrasound 11/14/22 21:17 Impression: 1. Status post cholecystectomy. 2. Mild hepatomegaly and hepatic steatosis. 3. No bile duct dilatation. 4. Negative kidneys. Microbiology 11/17/22 21:03 Stool - Stool Aspirate Occult Blood (FIT) - Final 11/17/22 21:03 Stool - Stool Aspirate C.difficile Toxin B Gene (PCR) - Final 11/14/22 22:30 Toe - Right Big Wound Culture - Final Proteus vulgaris 11/15/22 Unknown Other Source Gram Stain - Final 11/15/22 Unknown Other Source Tissue Culture - Final Morganella morganii 11/14/22 19:20 Blood Blood Culture - Preliminary NEGATIVE TO DATE 11/14/22 19:20 Blood Blood Culture - Preliminary NEGATIVE TO DATE Laboratory Results WBC 8.0 10^3/uL (4.0-10.0) 11/18/22 05:21 RBC 4.85 10^6/uL (4.1-5.3) 11/18/22 05:21 Hgb 13.8 g/dL (11.7-16.6) 11/18/22 05:21 Hct 41.7 % (42.0-52.0) L 11/18/22 05:21 MCV 86.0 fl (80-94) 11/18/22 05:21 MCH 28.5 pg (28.0-34.0) 11/18/22 05:21 MCHC 33.1 g/dL (30.0-36.0) 11/18/22 05:21 RDW 11.3 % (12.1-15.1) L 11/18/22 05:21 Plt Count 366 10^3/cmm (130-400) 11/18/22 05:21 MPV 10.3 fL (7.4-10.4) 11/18/22 05:21 Neut % (Auto) 59.2 % 11/18/22 05:21 Lymph % (Auto) 21.8 % 11/18/22 05:21 [place] % (Auto) 6.2 % 11/18/22 05:21 Eos % (Auto) 3.5 % 11/18/22 05:21 Baso % (Auto) 1.0 % 11/18/22 05:21 Neut # (Auto) 4.75 10^3/uL (1.8-7.7) 11/18/22 05:21 Lymph # (Auto) 1.8 10^3/uL (0.8-4.8) 11/18/22 05:21 [place] # (Auto) 0.5 10^3/uL (0.2-0.9) 11/18/22 05:21 Eos # (Auto) 0.3 10^3/uL (0.0-0.8) 11/18/22 05:21 Baso # (Auto) 0.1 10^3/uL (0.0-0.1) 11/18/22 05:21 Nucleated RBC % (auto) 0 % 11/18/22 05:21 Total Counted 100 (0-100) 11/17/22 03:54 Atypical Lymphs % 0.0 % (0-5) 11/17/22 03:54 Absolute Neutrophils 5.0 10^3/cmm (1.4-6.5) 11/17/22 03:54 Segmented Neutrophils 62 % 11/17/22 03:54 Abs Segm Neuts (Man) 4.9 10/cmm (1.6-7.1) 11/17/22 03:54 Band Neutrophils 1.0 % 11/17/22 03:54 Abs Band Neuts (Man) 0.1 10^3/cmm (0.0-1.2) 11/17/22 03:54 Absolute Lymphocytes 1.5 10^3/cmm (1.2-3.4) 11/17/22 03:54 Lymphocytes (Manual) 19 % 11/17/22 03:54 Monocytes (Manual) 7.0 % 11/17/22 03:54 Absolute Monocytes 0.6 10^3/cmm (0.1-0.6) 11/17/22 03:54 Eosinophils (Manual) 6 % 11/17/22 03:54 Absolute Eosinophils 0.4 10^3/cmm (0.0-0.7) 11/17/22 03:54 Basophils (Manual) 0.0 % 11/17/22 03:54 Absolute Basophils 0.0 10^3/cmm (0.0-0.2) 11/17/22 03:54 Metamyelocytes 1.0 % 11/17/22 03:54 Myelocytes 4.0 % 11/17/22 03:54 Nucleated RBCs # 0.0 /100WBC 11/18/22 05:21 Platelet Estimate Normal (Normal) 11/17/22 03:54 ESR 49 mm/hr (0-10) H 11/14/22 17:12 Sodium 132 mmol/L (136-145) L 11/18/22 05:21 Potassium 3.9 mmol/L (3.5-5.1) 11/18/22 05:21 Chloride 98 mmol/L (98-107) 11/18/22 05:21 Carbon Dioxide 27 mmol/L (22-29) 11/18/22 05:21 Anion Gap 10.9 (5-19) 11/18/22 05:21 BUN 10 mg/dL (8-23) 11/18/22 05:21 Creatinine 0.6 mg/dL (0.7-1.2) L 11/18/22 05:21 GFR Calculation 136.1 mL/min (90-130) H 11/18/22 05:21 Glucose 148 mg/dL (65-115) H 11/18/22 05:21 POC Glucose 216 mg/dL (70-110) H 11/19/22 11:04 Estimat Average Glucose 309 11/14/22 21:41 Hemoglobin A1c 12.4 % (4.0-6.0) H 11/14/22 21:41 Calculated Osmolality 276 mOsm/kg (285-295) L 11/18/22 05:21 Lactic Acid 1.7 mmol/L (0.5-2.2) 11/14/22 21:41 Calcium 8.6 mg/dL (8.5-10.5) 11/18/22 05:21 Total Bilirubin 1.8 mg/dL (0.15-1.2) H 11/14/22 17:30 AST 15 U/L (0-40) 11/14/22 17:30 ALT 16 U/L (0-41) 11/14/22 17:30 Alkaline Phosphatase 102 U/L (40-130) 11/14/22 17:30 Troponin T Baseline 9 ng/L (0-15) 11/15/22 09:09 Troponin T 120 Minute 9.47 ng/L (0-15) 11/15/22 11:11 Delta Troponin T 0.47 ABS# (0-10) 11/15/22 11:11 Troponin T Hi Sens 6Hr 9.21 ng/L (0-15) 11/15/22 14:50 Troponin T Hi Sens 6Hr Delta 0.21 ng/L (0-12) 11/15/22 14:50 C-Reactive Protein 79.3 mg/L (0.0-4.9) H 11/14/22 17:12 NT-Pro-B Natriuret Pep 132 pg/mL (0-125) H 11/15/22 05:04 Total Protein 7.0 g/dL (6.6-8.7) 11/14/22 17:30 Albumin 3.6 g/dL (3.5-5.2) 11/14/22 17:30 Globulin 3.4 g/dL (1.3-4.6) 11/14/22 17:30 Triglycerides 366 mg/dL (0-150) H 11/14/22 21:41 Cholesterol 114 mg/dL (0-200) 11/14/22 21:41 LDL Cholesterol, Calc 22 mg/dL (50-129) L 11/14/22 21:41 HDL Cholesterol 19 mg/dL (60-100) L 11/14/22 21:41 LDL/HDL Ratio 1.16 RATIO (0.00-3.22) 11/14/22 21:41 Cholesterol/HDL Ratio 6.00 mg/dL (1.0-5.00) H 11/14/22 21:41 Procalcitonin 0.43 ng/mL (0-0.5) 11/14/22 21:41 TSH 2.86 uIU/mL (0.27-4.20) 11/14/22 21:41 Vancomycin Trough 14.3 ug/mL (10-15) 11/16/22 13:41 Serum Ketones Negative (Negative) 11/14/22 19:20 Influenza Type A Ag negative (Negative) 11/14/22 19:15 Influenza Type B Ag negative (Negative) 11/14/22 19:15 SARS-CoV-2 Ag (Rapid) negative (Negative) 11/14/22 19:15 Vitals Last Vital Signs Temp 97.4 F L 11/19/22 08:00 Pulse 70 11/19/22 08:00 Resp 18 11/19/22 08:00 BP 149/89 11/19/22 08:00 Pulse Ox 97 11/19/22 08:00 O2 Del Method Room Air 11/19/22 08:00 O2 Flow Rate 6 11/18/22 12:32 Discharge Plan Discharge Patient Disposition: Home Health Service Condition: Stable Prescriptions: New atorvastatin 40 mg Tablet 40 mg PO BEDTIME Qty: 30 0RF levofloxacin 500 mg tablet 500 mg PO Q24H 14 Days Qty: 14 0RF Lantus Solostar U-100 Insulin 100 unit/mL (3 mL) insulin pen 25 unit SUBCUT QPM Qty: 15 0RF (DME) BD Ultra-Fine Micro Pen Needle 32 gauge x 1/4 needle See Rx Instructions .ROUTE .MEDSUPPLY Qty: 50 0RF Rx Instructions: As directed Humalog KwikPen Insulin 100 unit/mL insulin pen 8 unit SUBCUT TID Qty: 15 0RF (DME) CareTouch Glucose Monitoring Kit See Rx Instructions .Route Qty: 1 0RF Rx Instructions: As directed hydrocodone-acetaminophen 5-325 mg Tablet 1 tab PO Q6H PRN (Reason: Moderate Pain) Qty: 14 0RF Continued (DME) OrthoWedge heel shoe to Left and Right Foot See Rx Instructions .Route .MEDSUPPLY Qty: 1 0RF Rx Instructions: As directed J P & O aspirin 81 mg Tablet,Delayed Release (Dr/Ec) 81 mg PO DAILY Qty: 30 0RF Discharge Orders: Discharge Order (Routine); Ordered 11/19/22 Ordered By: Brannon Latham Referrals: Primitivo Crowder [Primary Care Provider] - 11/29/22 1:30 pm Eric Khalil DPM [Physician] - 11/26/22 1:30 pm Isabella Rogers MD [Physician] - 12/05/22 8:30 am (for new pcp appointment. ) Discharge Diet: Cardiac and Diabetic Discharge Activity: Resume usual activity and Increase activity as tolerated Patient Instructions: Atorvastatin (By mouth), Levofloxacin (By mouth), Insulin Glargine (By injection), Insulin Lispro (By injection), Opioid Safety Activity Restrictions/Additional Instructions: Podiatry orders: Please keep your surgical dressing on your right foot clean, dry and intact until his follow-up visit in podiatry clinic 11/26/2022 at 1:30 PM Patient to elevate right foot while resting Recommend wearing [employer] OrthoWedge heel shoe on your right foot when ambulating to reduce pressure on the ball of your foot. Your left great toe wound is fully healed at this time. Please wear shoes and socks at all times even around the house to protect your left foot from new wound formation, You will be prescribed oral antibiotics, please take as instructed for the next 2 weeks. For any questions or concerns please call intact Dr. Khalil at podiatry clinic phone #[phone] select option #[address] Khalil's nurse. Take Lantus 25 units QPM, Lispro 8 units TID. Check fasting blood sugar daily in morning and maintain a blood pressure log and follow-up with her primary care provider within next 2 weeks for further adjustment of antidiabetic medications. Your target blood sugars fasting should be less than 120. If your blood sugars are dropping below 80 then you can decrease Lantus to 20 units. Discharge Attestations Time Spent in Discharge Care*: greater than 30 min Specific Discharge Activities: educating patient, discussing with pcp/other providers, discussing with correctional case manager/social workers/dc planners, documenting/other paperwork and evaluating patient/reviewing data Status at Discharge: Cognitive status at discharge: cognitively intact , Behavioral status at discharge: cooperative , Functional status at discharge: uses cane/walker , Overall status at discharge: patient is progressing back to baseline Quality Metrics Clinical Quality Measures [ No reported AMI, CVA or VTE this stay] Coding Level of Care Code 71250 Total time (in minutes) for Discharge: 50 Diagnoses Diabetic peripheral neuropathy associated with type 2 diabetes mellitus E11.42 Osteomyelitis of great toe of right foot M86.9 Non-pressure chronic ulcer of other part of right foot with necrosis of bone L97.514
[2022-11-19 12:00] VITALS: BP 147/85; PULSE 74; RESP 18; TEMP 36.8; O2SAT 98
[2022-11-19 17:24] VITALS: BP 152/90; PULSE 79; RESP 18; TEMP 36.3; O2SAT 95
[2022-11-19 17:36] LABS: Glucose Point of Care 227 mg/dL (70-110)
[2022-11-19 18:19] VITALS: BP 152/90; PULSE 79; RESP 18; TEMP 36.3; O2SAT 95
== END 2022-11-19 18:20 | disposition home health service (06) | DRG 617 ==
LOC: ER 21:01 → MEDSURG 21:05
PROVIDERS: Family Medicine; Nurse Practitioner Family; Podiatrist Foot & Ankle Surgery; Admitting Provider Internal Medicine; Emergency Provider Emergency Medicine; PCP Family Medicine; Visit Provider Student in an Organized Health Care Education/Training Program
PROC: 0Y6P0Z0 Detachment at Right 1st Toe, Complete, Open Approach (ICD-10-PCS; principal; 2022-11-15 07:00)
PROC: 0Y6P0Z0 Detachment at Right 1st Toe, Complete, Open Approach (ICD-10-PCS; 2022-11-15 07:00)
PROC: 0JQQ0ZZ Repair Right Foot Subcutaneous Tissue and Fascia, Open Approach (ICD-10-PCS; CPT 13160; principal; 2022-11-18 12:00)
DX: E11.69 Type 2 diabetes mellitus with other specified complication (principal); E87.1 Hypo-osmolality and hyponatremia; M86.9 Osteomyelitis, unspecified; E87.20 Acidosis, unspecified; B96.4 Proteus (mirabilis) (morganii) as the cause of diseases classified elsewhere; E11.621 Type 2 diabetes mellitus with foot ulcer; E11.42 Type 2 diabetes mellitus with diabetic polyneuropathy; L97.514 Non-pressure chronic ulcer of other part of right foot with necrosis of bone; L97.522 Non-pressure chronic ulcer of other part of left foot with fat layer exposed; E11.628 Type 2 diabetes mellitus with other skin complications; L03.031 Cellulitis of right toe; E11.65 Type 2 diabetes mellitus with hyperglycemia; I25.10 Atherosclerotic heart disease of native coronary artery without angina pectoris; J44.9 Chronic obstructive pulmonary disease, unspecified; Z95.1 Presence of aortocoronary bypass graft; Z95.5 Presence of coronary angioplasty implant and graft; Z87.891 Personal history of nicotine dependence; Z79.82 Long term (current) use of aspirin
CPT/HCPCS: 36415; 36416; 71045; 73660; 73701; 76700; 80048; 80053; 80061; 80202; 82009; 82274; 82962; 83036; 83605; 83880; 84145; 84443; 84484; 85007; 85025; 85651; 86140; 87040; 87070; 87077; 87176; 87186; 87205; 87426; 87493; 87804; 88305; 88311; 93005; 93925; 96365; 96367; 96372; 97530; 99285; J1644; J1815; J2270; J2543; J2704; J3370; J3490; J7030; J7040; Q9967

== ENCOUNTER → 2022-11-26 13:08 | Outpatient (BNVA) | payer MEDICARE, MEDICAID, SELFPAY | PROVIDERS: PCP Family Medicine; Visit Provider Podiatrist Foot & Ankle Surgery | DX: E11.65 Type 2 diabetes mellitus with hyperglycemia (principal); Z89.411 Acquired absence of right great toe; Z79.84 Long term (current) use of oral hypoglycemic drugs | CPT/HCPCS: 99024; 99213 ==

== ENCOUNTER → 2022-12-05 13:09 | Outpatient (BNVA) | payer MEDICARE, MEDICAID, SELFPAY | PROVIDERS: PCP Family Medicine; Visit Provider Podiatrist Foot & Ankle Surgery | DX: Z89.411 Acquired absence of right great toe (principal); E11.65 Type 2 diabetes mellitus with hyperglycemia; Z79.84 Long term (current) use of oral hypoglycemic drugs; Z79.4 Long term (current) use of insulin | CPT/HCPCS: 99213 ==

== ENCOUNTER → 2022-12-19 12:26 | Outpatient (BNVA) | payer MEDICARE, MEDICAID, SELFPAY | PROVIDERS: PCP Family Medicine; Visit Provider Podiatrist Foot & Ankle Surgery | DX: Z79.84 Long term (current) use of oral hypoglycemic drugs (principal); Z79.4 Long term (current) use of insulin; E11.65 Type 2 diabetes mellitus with hyperglycemia; Z89.411 Acquired absence of right great toe | CPT/HCPCS: 99214 ==

== ENCOUNTER → 2022-12-26 14:50 | Outpatient (BNVA) | payer MEDICARE, MEDICAID, SELFPAY | PROVIDERS: PCP Family Medicine; Visit Provider Podiatrist Foot & Ankle Surgery | DX: Z98.890 Other specified postprocedural states (principal); E11.65 Type 2 diabetes mellitus with hyperglycemia; Z89.411 Acquired absence of right great toe; Z79.84 Long term (current) use of oral hypoglycemic drugs | CPT/HCPCS: 99213 ==

== ENCOUNTER → 2023-01-09 09:16 | Outpatient (BNVA) | payer MEDICARE, MEDICAID, SELFPAY | PROVIDERS: PCP Family Medicine; Visit Provider Podiatrist Foot & Ankle Surgery | DX: E11.65 Type 2 diabetes mellitus with hyperglycemia (principal); Z89.411 Acquired absence of right great toe; Z79.84 Long term (current) use of oral hypoglycemic drugs | CPT/HCPCS: 99024; 99214 ==

== ENCOUNTER 2023-01-13 13:36 | Emergency (ER) | payer MEDICARE, MEDICAID, SELFPAY ==
[2023-01-13 13:37] VITALS: BP 147/90; PULSE 112; RESP 18; TEMP 36.4; O2SAT 93
--- NOTE | 2023-01-13 14:13 | W.ED.CHESTPA ---
HPI - Chest Pain General: Chief Complaint: Chest Pain Stated Complaint: chest pain Time Seen by Provider: 01/13/23 13:49 History of Present Illness: This 62-year-old male with a history of coronary artery disease (status post double bypass and stent insertion) presents to the ER with chest pain that started 3 days ago. Initially, chest pain was intermittent but since last night, its been more or less constant. Patient describes it as a dull pain in the center of the chest with radiation into the right arm and both sides of the neck. Patient has no fever, cough, shortness of breath or any other systemic symptoms. Prior to arrival, EMS gave aspirin and 1 dose of nitroglycerin. Patient rates the pressure at 4 out of 10 now. He appears clinically stable. Review of Systems Const: Denies: chills, body aches or change in appetite Eyes: Denies: change in vision or eye discharge ENMT: Denies: throat pain, dental pain or nasal discharge Card: Reports: chest pain : Denies: dysuria Musc: Denies: neck pain or back pain Neuro: Denies: headache(s) or weakness in extremities Psych: Denies: depression Danny/Lymph: Denies: easy bruising All/Imm: Denies: urticaria, tongue swelling or facial swelling PFSH ED PFSH: Medical History Diabetes History of alcoholism Hyperlipidemia Hypertension Surgical History History of coronary artery bypass graft x 2 2007 Hx laparoscopic cholecystectomy Postsurgical percutaneous transluminal coronary angioplasty (PTCA) status Social History Smoking and tobacco status: former smoker Physical Exam Const: COMMON NORMALS: no acute distress, patient oriented x3, no limitations and alert HENMT: COMMON NORMALS: normocephalic HEAD & SCALP: normocephalic Eye: COMMON NORMALS: EOMs intact bilaterally Neck/C-Spine: COMMON NORMALS: full ROM and supple Chest: COMMONS NORMALS: normal inspection of the chest (Healed mid sternotomy scar from previous CABG.) Resp: COMMON NORMALS: normal respiratory effort, No retractions, No use of accessory muscles and clear to auscultation bilaterally AUSCULTATION: clear to auscultation bilaterally Cardio: COMMON NORMALS: regular rate, regular rhythm and No murmurs present (Cardio) RATE: regular rate RHYTHM: regular rhythm GI: COMMON NORMALS: Normal to inspection, nondistended, normoactive bowel sounds present and non-tender : COMMON NORMALS: Yes no CVA tenderness BLADDER/KIDNEY EXAM: Yes no CVA tenderness Back/Pelvis: COMMON NORMALS: no CVA tenderness and no thoracic nor lumbar tenderness Extremity: GENERAL: Yes normal exam except as noted Neuro: COMMON NORMALS: patient oriented x3 and no focal motor deficits SENSORIUM/ORIENTATION: Yes alert Psych: COMMON NORMALS: mental status grossly normal and cooperative Course Vital Signs: Vital signs: Vital Signs Temperature 97.6 F 01/13/23 13:37 Pulse Rate 71 01/13/23 17:17 Respiratory Rate 16 01/13/23 17:17 Blood Pressure 164/97 01/13/23 17:17 Pulse Oximetry 100 01/13/23 17:17 Oxygen Delivery Me thod Room Air 01/13/23 17:17 MDM - Chest Pain Medical Decision Making Medical decision making: Patient was brought in by EMS for evaluation of chest pain. While waiting for the 2-hour troponin to be done, patient got impatient and said he wanted to go home. Despite trying to convince him to stay and informing him of the risks of leaving the ER prior to completion of the evaluation, patient insisted on leaving. He is competent and understands the risks associated with his decision and so was allowed to sign out AGAINST MEDICAL ADVICE. He may return if he changes his mind. Lab Data 01/13/23 16:09 01/13/23 16:09 Radiology Impressions Chest X-Ray 01/13/23 15:26 IMPRESSION: Unremarkable portable chest. Laboratory Results WBC 7.0 10^3/uL (4.0-10.0) 01/13/23 16:09 RBC 5.55 10^6/uL (4.1-5.3) H 01/13/23 16:09 Hgb 16.1 g/dL (11.7-16.6) 01/13/23 16:09 Hct 48.5 % (42.0-52.0) 01/13/23 16:09 MCV 87.4 fl (80-94) 01/13/23 16:09 MCH 29.0 pg (28.0-34.0) 01/13/23 16:09 MCHC 33.2 g/dL (30.0-36.0) 01/13/23 16:09 RDW 12.5 % (12.1-15.1) 01/13/23 16:09 Plt Count 201 10^3/cmm (130-400) 01/13/23 16:09 MPV 10.4 fL (7.4-10.4) 01/13/23 16:09 Neut % (Auto) 65.8 % 01/13/23 16:09 Lymph % (Auto) 20.8 % 01/13/23 16:09 [place] % (Auto) 8.8 % 01/13/23 16:09 Eos % (Auto) 3.1 % 01/13/23 16:09 Baso % (Auto) 0.4 % 01/13/23 16:09 Neut # (Auto) 4.62 10^3/uL (1.8-7.7) 01/13/23 16:09 Lymph # (Auto) 1.5 10^3/uL (0.8-4.8) 01/13/23 16:09 [place] # (Auto) 0.6 10^3/uL (0.2-0.9) 01/13/23 16:09 Eos # (Auto) 0.2 10^3/uL (0.0-0.8) 01/13/23 16:09 Baso # (Auto) 0.0 10^3/uL (0.0-0.1) 01/13/23 16:09 Nucleated RBC % (auto) 0 % 01/13/23 16:09 Nucleated RBCs # 0.0 /100WBC 01/13/23 16:09 Sodium 132 mmol/L (136-145) L 01/13/23 16:09 Potassium 4.2 mmol/L (3.5-5.1) 01/13/23 16:09 Chloride 97 mmol/L (98-107) L 01/13/23 16:09 Carbon Dioxide 27 mmol/L (22-29) 01/13/23 16:09 Anion Gap 12.2 (5-19) 01/13/23 16:09 BUN 12 mg/dL (8-23) 01/13/23 16:09 Creatinine 0.6 mg/dL (0.7-1.2) L 01/13/23 16:09 GFR Calculation 135.6 mL/min (90-130) H 01/13/23 16:09 Glucose 249 mg/dL (65-115) H 01/13/23 16:09 Calculated Osmolality 282 mOsm/kg (285-295) L 01/13/23 16:09 Calcium 8.7 mg/dL (8.5-10.5) 01/13/23 16:09 Total Bilirubin 1.2 mg/dL (0.15-1.2) 01/13/23 16:09 AST 14 U/L (0-40) 01/13/23 16:09 ALT 21 U/L (0-41) 01/13/23 16:09 Alkaline Phosphatase 73 U/L (40-130) 01/13/23 16:09 Troponin T Baseline 10 ng/L (0-15) 01/13/23 16:09 Total Protein 6.3 g/dL (6.6-8.7) L 01/13/23 16:09 Albumin 4.1 g/dL (3.5-5.2) 01/13/23 16:09 Globulin 2.2 g/dL (1.3-4.6) 01/13/23 16:09 Discharge Plan Discharge Patient Disposition: Left Against Medical Advice Clinical Impression: Chest pain Condition: Stable Prescriptions: No Action metformin 500 mg tablet 500 mg PO BIDWMEAL 30 Days Qty: 60 2RF (DME) Diabetic shoes with 3 sets of insoles See Rx Instructions .Route .MEDSUPPLY Qty: 1 0RF Rx Instructions: As directed by HOME sulfamethoxazole-trimethoprim [Bactrim DS] 800-160 mg tablet 1 tab PO BID 7 Days Qty: 14 0RF glipizide 2.5 mg tablet extended release 24hr 2.5 mg PO DAILY Qty: 30 0RF (DME) OrthoWedge heel shoe to Left and Right Foot See Rx Instructions .Route .MEDSUPPLY Qty: 1 0RF Rx Instructions: As directed J P & O aspirin 81 mg Tablet,Delayed Release (Dr/Ec) 81 mg PO DAILY Qty: 30 0RF (DME) BD Ultra-Fine Micro Pen Needle 32 gauge x 1/4 needle See Rx Instructions .ROUTE .MEDSUPPLY Qty: 50 0RF Rx Instructions: As directed (DME) CareTouch Glucose Monitoring Kit See Rx Instructions .Route Qty: 1 0RF Rx Instructions: As directed hydrocodone-acetaminophen 5-325 mg Tablet 1 tab PO Q6H PRN (Reason: Moderate Pain) Qty: 14 0RF atorvastatin 40 mg tablet 40 mg PO BEDTIME 90 Days Qty: 90 1RF Referrals: Isabella Rogers MD [Primary Care Provider] - Coding Level of Care Code ED Corporate Quality Engineer for Adrianeg Damaris
[2023-01-13 14:41] VITALS: BP 134/89; PULSE 77; RESP 16; O2SAT 99
--- NOTE | 2023-01-13 14:44 | PC.NURSE ---
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 Cardiac leads were missing in the room. Pt will not be monitored until leads can be located and placed on pt.
--- NOTE | 2023-01-13 14:46 | PC.NURSE ---
Nurse heredia sent to ICU to obtain cardiac leads for pt.
--- NOTE | 2023-01-13 14:49 | PC.NURSE ---
Appropriate cardiac leads obtained and placed on pt
--- NOTE | 2023-01-13 15:26 | XR_ITS ---
WS: [id number] PORTABLE CHEST HISTORY: Chest pain COMPARISON: None available. Prior CABG. Lungs are clear and well expanded. No pleural effusion or pneumothorax. Cardiac size: Normal. Mediastinum/Aorta: Normal mediastinum. No osseous abnormality seen. XR/XR chest 1V portable [id number] IMPRESSION: Unremarkable portable chest.
--- NOTE | 2023-01-13 15:27 | ECG_ITS ---
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 Measurements Intervals [place] Rate: 64 P: 162 AR: 131 QRS: 86 QRSD: 94 T: 125 QT: 430 QTc: 447 Interpretive Statements ECTOPIC ATRIAL RHYTHM SEPTAL MYOCARDIAL INFARCTION , OF INDETERMINATE AGE [40+ ms Q WAVE IN V1/V2] LATERAL MYOCARDIAL INFARCTION , OF INDETERMINATE AGE [40+ ms Q WAVE AND/OR ST/T ABNORMALITY IN I/aVL/V5/V6] CONSIDER LIMB LEAD REVRSAL Compared to ECG 11/15/2022 15:00:01 Ectopic atrial rhythm now present Myocardial infarct finding now present Sinus rhythm no longer present Sinus arrhythmia no longer present Electronically Signed On 01-13-2023 16:50:[address] M.D. [id number]
[2023-01-13 15:38] VITALS: BP 147/85; PULSE 72; RESP 16; O2SAT 99
[2023-01-13] MEDS: morphine 4 mg/mL SDV 1 mL IVP (15:39)
[2023-01-13 16:17] LABS: Basophils % 0.4 %; Eosinophils # 0.2 10^3/uL (0.0-0.8); Eosinophils % 3.1 %; Hematocrit 48.5 % (42.0-52.0); Hemoglobin 16.1 g/dL (11.7-16.6); Lymphocytes # 1.5 10^3/uL (0.8-4.8); Lymphocytes % 20.8 %; Mean Corpuscular HGB Conc 33.2 g/dL (30.0-36.0); Mean Corpuscular Volume 87.4 fl (80-94); Mean Platelet Volume 10.4 fL (7.4-10.4); Monocytes # 0.6 10^3/uL (0.2-0.9); Monocytes % 8.8 %; Neutrophils # 4.62 10^3/uL (1.8-7.7); Neutrophils % 65.8 %; Nucleated Red Blood Cells % 0 %; Platelet Count 201 10^3/cmm (130-400); Red Blood Count 5.55 10^6/uL (4.1-5.3); Red Cell Distribution Width 12.5 % (12.1-15.1)
[2023-01-13 16:36] LABS: Troponin(5th) Baseline 10 ng/L (0-15)
[2023-01-13 16:42] LABS: Alanine Aminotransferase 21 U/L (0-41); Albumin Level 4.1 g/dL (3.5-5.2); Alkaline Phosphatase 73 U/L (40-130); Anion Gap 12.2 (5-19); Aspartate Amino Transferase 14 U/L (0-40); Blood Urea Nitrogen 12 mg/dL (8-23); Calcium 8.7 mg/dL (8.5-10.5); Carbon Dioxide 27 mmol/L (22-29); Chloride 97 mmol/L (98-107); Globulin 2.2 g/dL (1.3-4.6); Glomerular Filtration Rate 135.6 mL/min (90-130); Glucose 249 mg/dL (65-115); Osmolality Calculated 282 mOsm/kg (285-295); Potassium 4.2 mmol/L (3.5-5.1); Sodium 132 mmol/L (136-145); Total Bilirubin 1.2 mg/dL (0.15-1.2); Total Protein 6.3 g/dL (6.6-8.7)
[2023-01-13 17:17] VITALS: BP 164/97; PULSE 71; RESP 16; O2SAT 100
== END 2023-01-13 18:16 | disposition left against medical advice (07) ==
PROVIDERS: Emergency Provider Family Medicine; PCP Family Medicine
DX: R07.9 Chest pain, unspecified (principal); Z53.21 Procedure and treatment not carried out due to patient leaving prior to being seen by health care provider; Z79.84 Long term (current) use of oral hypoglycemic drugs; Z79.82 Long term (current) use of aspirin; E11.9 Type 2 diabetes mellitus without complications; E78.5 Hyperlipidemia, unspecified; I10 Essential (primary) hypertension; Z95.1 Presence of aortocoronary bypass graft; Z87.891 Personal history of nicotine dependence
CPT/HCPCS: 36415; 71045; 80053; 84484; 85025; 93005; 96374; 99285; J2270

== ENCOUNTER → 2023-02-06 09:43 | Outpatient (BNVA) | payer MEDICARE, MEDICAID, SELFPAY | PROVIDERS: PCP Family Medicine; Visit Provider Podiatrist Foot & Ankle Surgery | DX: Z98.890 Other specified postprocedural states (principal); E11.65 Type 2 diabetes mellitus with hyperglycemia; Z89.411 Acquired absence of right great toe; Z79.84 Long term (current) use of oral hypoglycemic drugs | CPT/HCPCS: 99024; 99214 ==

== ENCOUNTER 2023-04-29 05:42 | Observation (INO) | payer MEDICARE, MEDICAID, SELFPAY ==
[2023-04-29] VITALS (108 sets, daily range): BP systolic 122–175; BP diastolic 70–101; PULSE 59–98; RESP 15–22; TEMP 36.2–37; O2SAT 91–98; BMI 25.7
--- NOTE | 2023-04-29 05:58 | ECG_ITS ---
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 Measurements Intervals [place] Rate: 94 P: 55 NV: 135 QRS: 99 QRSD: 83 T: 90 QT: 358 QTc: 448 Interpretive Statements SINUS RHYTHM WITH SINUS ARRHYTHMIA Possible old septal NC BORDERLINE RIGHT AXIS DEVIATION [QRS AXIS > 90] INTERPRETATION BASED ON A DEFAULT AGE OF 40 YEARS Compared to ECG 01/13/2023 16:21:07 Ectopic atrial rhythm no longer present Myocardial infarct finding no longer present Electronically Signed On 04-29-2023 21:10:43 CDT by Reyna Mcintosh M.D. [id number]
--- NOTE | 2023-04-29 05:58 | XRR_ITS ---
PROCEDURE INFORMATION: Exam: XR Chest Exam date and time: 04/29/2023 6:03 AM Age: 62 years old Clinical indication: Chest wall pain; Prior surgery; Surgery date: 6+ months; Surgery type: Bypass; Additional info: Chest pain TECHNIQUE: Imaging protocol: Radiologic exam of the chest. Views: 1 view. COMPARISON: CR XR chest 1V portable [id number] 01/13/2023 3:31 PM FINDINGS: Lungs: Unremarkable. No consolidation. Pleural spaces: Unremarkable. No pleural effusion. No pneumothorax. Heart/Mediastinum: Calcific mediastinal lymphadenopathy is noted. Bones/joints: The patient is post sternotomy with surgical clips overlying the mediastinum. XR/XR chest 1V portable [id number] IMPRESSION: No acute cardiopulmonary disease.
--- NOTE | 2023-04-29 05:59 | ED_ITS ---
HPI - Chest Pain General: Chief Complaint: Chest Pain Stated Complaint: chest pain Time Seen by Provider: 04/29/23 05:58 Source: patient Mode of arrival: ambulatory History of Present Illness: 62-year-old male presents emergency room with complaint of his chest while at rest approximately hour and a half prior to arrival. He has a known history of coronary disease with previous stenting and bypass. He is not currently on any antiplatelet therapy besides a baby aspirin daily. He has had occasional episodes of chest pain recently but none this intense this morning his chest pain was 8 of 10 initially after being given sublingual nitro by EMS with decreased to 6 of 10. He is unable to identify any exacerbating or relieving factors for previous episodes. He also did receive 4 baby aspirin in route. He is mildly short of breath and has some mild orthopnea. Patient is diabetic and a former smoker MD complaint: chest pain Pertinent past history: coronary artery disease Onset (ago): hour(s) Timing of current episode: episodic Prior episodes: Yes Onset: during rest Pain location: left chest Pain radiation: left shoulder and right shoulder Quality: tightness Relieving factors: nitroglycerin Exacerbating factors: nothing Context: recent surgery (Appendectomy 1 month ago) Associated symptoms: Deny abdominal pain, diaphoresis, dyspnea, fever(s), leg e steve, nausea, palpitations, sense of impending doom, syncope, vomiting or other Treatment prior to arrival: none Review of Systems Const: Denies: fever(s), chills, fatigue, malaise or diaphoresis ENMT: Denies: throat pain, ear or mastoid pain, nasal discharge or nasal c ongestion Card: Reports: chest pain, dyspnea on exertion and orthopnea; Denies: palpitations, edema, swelling of feet/ankles or syncope Resp: Denies: dyspnea, productive cough or non-productive cough GI: Denies: abdominal pain, nausea or vomiting : Denies: flank pain, dysuria, urinary frequency or urinary urgency Skin/Breast: Denies: rash or pruritus [facility] ED PFSH: Medical History Diabetes History of alcoholism Hyperlipidemia Hypertension Surgical History History of coronary artery bypass graft x 2 2006 Hx laparoscopic cholecystectomy Postsurgical percutaneous transluminal coronary angioplasty (PTCA) status Social History Smoking and tobacco status: former smoker Physical Exam Const: GENERAL APPEARANCE: cooperative and comfortable ORIE NTATION/CONSCIOUSNESS: Yes awake, Yes oriented to person, Yes oriented to place and Yes oriented to time HENMT: COMMON NORMALS: normocephalic, atraumatic and hearing grossly normal bilaterally HEAD & SCALP: normocephalic and atraumatic Resp: COMMON NORMALS: normal respiratory effort, No retractions, No use of accessory muscles and clear to auscultation bilaterally AUSCULTATION: clear to auscultation bilaterally Cardio: COMMON NORMALS: regular rate, regular rhythm and No murmurs present (Cardio) RATE: regular rate RHYTHM: regular rhythm GI: COMMON NORMALS: Soft to palpation and No hepatosplenomegaly present AUSCULTATION: Yes normoactive bowel sounds PALPATION: Yes Soft to palpation, No Tenderness to palpation present (GI), No Guarding due to palpation present (GI) and Yes No hepatosplenomegaly present Extremity: COMMON NORMALS: normal to inspection, capillary refill normal, no clubbing, cyanosis or edema, no calf tenderness and no pedal edema Neuro: SENSORIUM/ORIENTATION: Yes oriented to person, Yes oriented to place and Yes oriented to time Skin: COMMON NORMALS: no rashes or lesions noted GENERAL SKIN EXAM: no rashes or lesions noted Course Vital Signs: Vital signs: Vital Signs Temperature 97.9 F 04/29/23 05:44 Pulse Rate 97 04/29/23 07:06 Respiratory Rate 18 04/29/23 07:06 Blood Pressure 149/99 04/29/23 07:06 Pulse Oximetry 95 04/29/23 07:06 Oxygen Delivery Me thod Room Air 04/29/23 06:27 MDM - Chest Pain Medical Decision Making Titrated nitroglycerin with improvement of chest pain down to 2 of 10. Patient is describing unstable angina is progressively worsening over time was difficult to get a timeframe from him. He has significant risk factors and known heart disease he is not on any Plavix does have a stent in place. Was given Plavix and aspirin was concerned with some subtle EKG changes that he may have been de veloping a STEMI. Reviewed the CTs with Dr. Varghese he recommended trending out and repeating the EKGs which we did. He never developed true ST elevation changes. Discussed with Dr. Bunn will admit to [facility] consult cardiology. Medical Records I reviewed the patient's medical records. Lab Data I reviewed the patient's lab results. 04/29/23 06:20 04/29/23 06:20 Laboratory Results WBC 6.18 10^3/uL (3.29-11.43) 04/29/23 06:20 Corrected WBC Cancelled 04/29/23 05:57 RBC 5.43 10^6/uL (3.85-5.65) 04/29/23 06:20 Hgb 16.20 g/dL (11.27-16.99) 04/29/23 06:20 Hct 46.7 % (37-53) 04/29/23 06:20 MCV 86.0 fl (82-101) 04/29/23 06:20 MCH 29.8 pg (27-33) 04/29/23 06:20 MCHC 34.7 g/dL (30-55) 04/29/23 06:20 RDW 12.0 % (12.1-15.1) L 04/29/23 06:20 Plt Count 238 10^3/cmm (157-399) 04/29/23 06:20 MPV 10.2 fL (7.4-10.4) 04/29/23 06:20 Gran % Cancelled 04/29/23 05:57 Neut % (Auto) 60.3 % 04/29/23 06:20 Lymph % (Auto) 22.2 % 04/29/23 06:20 [place] % (Auto) 9.9 % 04/29/23 06:20 Eos % (Auto) 5.2 % 04/29/23 06:20 Baso % (Auto) 0.5 % 04/29/23 06:20 Neut # (Auto) 3.73 10^3/uL (1.8-7.7) 04/29/23 06:20 Lymph # (Auto) 1.4 10^3/uL (0.8-4.8) 04/29/23 06:20 [place] # (Auto) 0.6 10^3/uL (0.2-0.9) 04/29/23 06:20 Eos # (Auto) 0.3 10^3/uL (0.0-0.8) 04/29/23 06:20 Baso # (Auto) 0.0 10^3/uL (0.0-0.1) 04/29/23 06:20 Absolute Gran (auto) Cancelled 04/29/23 05:57 Nucleated RBC % (auto) 0 % 04/29/23 06:20 Nucleated RBCs # 0.0 /100WBC 04/29/23 06:20 Sodium 137 mmol/L (136-145) 04/29/23 06:20 Potassium 4.0 mmol/L (3.5-5.1) 04/29/23 06:20 Chloride 99 mmol/L (98-107) 04/29/23 06:20 Carbon Dioxide 28 mmol/L (22-29) 04/29/23 06:20 Anion Gap 14.0 (5-19) 04/29/23 06:20 BUN 14 mg/dL (8-23) 04/29/23 06:20 Creatinine 0.7 mg/dL (0.7-1.2) 04/29/23 06:20 GFR Calculation 113.5 mL/min (90-130) 04/29/23 06:20 Glucose 277 mg/dL (65-115) H 04/29/23 06:20 Calculated Osmolality 294 mOsm/kg (285-295) 04/29/23 06:20 Calcium 9.2 mg/dL (8.5-10.5) 04/29/23 06:20 Total Bilirubin 1.7 mg/dL (0.15-1.2) H 04/29/23 06:20 AST 14 U/L (0-40) 04/29/23 06:20 ALT 29 U/L (0-41) 04/29/23 06:20 Alkaline Phosphatase 72 U/L (40-130) 04/29/23 06:20 Troponin T Baseline 16 ng/L (0-15) H 04/29/23 06:20 Total Protein 6.1 g/dL (6.6-8.7) L 04/29/23 06:20 Albumin 4.1 g/dL (3.5-5.2) 04/29/23 06:20 Globulin 2.0 g/dL (1.3-4.6) 04/29/23 06:20 All radiology interpretation(s) finalized by discharge Discharge Plan Discharge Patient Disposition: Admitted As Inpatient Clinical Impression: Unstable angina pectoris, CAD (coronary artery disease), Uncontrolled diabetes mellitus Condition: Stable Discharge Diet: Usual diet Discharge Activity: Resume usual activity Coding Level of Care Code ED [employer] for Freddy Ocampo
[2023-04-29] MEDS: heparin 5,000 unit/mL INJ 1 mL 4000 UNIT IVP (06:18)
[2023-04-29] MEDS: clopidogrel 300 mg Tablet 600 MG PO (06:23)
[2023-04-29] MEDS: nitroglycerin drip 50 MG/250 ML PREMIX IV (06:26)
[2023-04-29 06:27] LABS: Basophils % 0.5 %; Eosinophils # 0.3 10^3/uL (0.0-0.8); Eosinophils % 5.2 %; Hematocrit 46.7 % (37-53); Lymphocytes # 1.4 10^3/uL (0.8-4.8); Lymphocytes % 22.2 %; Mean Corpuscular HGB Conc 34.7 g/dL (30-55); Mean Corpuscular Hemoglobin 29.8 pg (27-33); Mean Platelet Volume 10.2 fL (7.4-10.4); Monocytes # 0.6 10^3/uL (0.2-0.9); Monocytes % 9.9 %; Neutrophils # 3.73 10^3/uL (1.8-7.7); Neutrophils % 60.3 %; Nucleated Red Blood Cells % 0 %; Platelet Count 238 10^3/cmm (157-399); Red Blood Count 5.43 10^6/uL (3.85-5.65); White Blood Count 6.18 10^3/uL (3.29-11.43)
[2023-04-29 06:45] LABS: Alanine Aminotransferase 29 U/L (0-41); Albumin Level 4.1 g/dL (3.5-5.2); Alkaline Phosphatase 72 U/L (40-130); Aspartate Amino Transferase 14 U/L (0-40); Blood Urea Nitrogen 14 mg/dL (8-23); Calcium 9.2 mg/dL (8.5-10.5); Carbon Dioxide 28 mmol/L (22-29); Chloride 99 mmol/L (98-107); Creatinine Clr Calc Pharmacy 122.1929; Glomerular Filtration Rate 113.5 mL/min (90-130); Glucose 277 mg/dL (65-115); Osmolality Calculated 294 mOsm/kg (285-295); Sodium 137 mmol/L (136-145); Total Bilirubin 1.7 mg/dL (0.15-1.2); Total Protein 6.1 g/dL (6.6-8.7); Troponin(5th) Baseline 16 ng/L (0-15)
[2023-04-29] MEDS: ondansetron 2 mg/ML SDV 2 mL 4 MG IVP (07:01)
[2023-04-29] MEDS: morphine 4 mg/mL SDV 1 mL IVP (07:01)
--- NOTE | 2023-04-29 07:39 | PC.PHAR ---
pt states he takes care of his own medications-pt states he doesnt like to take medications-pt states he is only taking a 81mg aspirin every other day-pt states hes not taking his lipitor 40mg hs (ext shows last filled 11/19/22 30d/s)-glipizide er 2.5mg daily (ext shows last filled 12/24/22 30d/s)-metformin 500mg bid (ext shows filled 12/05/22 30d/s) metformin er 500mg tb2 500mg bid (ext shows filled 11/26/22 100d/s)-prilosec 40mg qam (ext shows last filled 01/09/23 60d/s)-humalog kwikpen u-100 8 units tid (filled 11/19/22 62d/s) and lantus solostar 25 units qpm (ext shows filled 11/19/22 60d/s)
--- NOTE | 2023-04-29 07:58 | ECG_ITS ---
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 Measurements Intervals [place] Rate: 91 P: 59 FL: 129 QRS: 92 QRSD: 84 T: 85 QT: 350 QTc: 433 Interpretive Statements SINUS RHYTHM BORDERLINE RIGHT AXIS DEVIATION [QRS AXIS > 90] SEPTAL MYOCARDIAL INFARCTION , OF INDETERMINATE AGE [40+ ms Q WAVE IN V1/V2] Compared to ECG 01/13/2023 16:21:07 Ectopic atrial rhythm no longer present Myocardial infarct finding still present Electronically Signed On 04-29-2023 21:14:03 CDT by Reyna Mcintosh M.D. [id number]
--- NOTE | 2023-04-29 08:21 | P.HP_ITS ---
Providers/Chief Complaint Admitting Physician: Joey Pastrana MD Primary Care Provider: Isabella Rogers MD Chief Complaint: chest pain History of Present Illness Hudson Griffin is a 62 year old male that presented to the emergency department with complaints of chest discomfort, severe in his mid chest back and shoulder blades noted around 4 AM. It is seem to improve with nitroglycerin in the emergency department. Patient has trouble qualifying its nature, but it does have somewhat of a sharp quality. No significant cough. No history of hemoptysis, fever, nausea. Perhaps a little bit short of breath. Reports he has discomfort every several days, not necessarily exertionally related, that can last several hours. He had an visit to the emergency department in January for chest discomfort at which time they wanted to admit him for cardiac work-up. He went AGAINST MEDICAL ADVICE at that time. He reports he has a hernia in his left lower abdomen, and is to get cardiac clearance in [place] by Dr. Campbell prior to any surgery. He has yet to see the control director. He reports his pain is significantly improved at this time -09/13. He is currently not taking any medicine other than aspirin on occasion. When asked why he states he does not want to take anything he does not need. In the emergency department he was loaded with Plavix, given an aspirin, in itiated on a nitroglycerin drip, given some morphine. It appears he received heparin 4000 units IV x1. Review of Systems General: Reports: 10 or more systems reviewed and unremarkable except in HPI and below Card: Reports: chest pain; Denies: swelling of feet/ankles Resp: Denies: dyspnea, productive cough or non-productive cough GI: Denies: abdominal pain, nausea, vomiting, hematochezia or melena Medications/Allergies Home Medications Medication Instructions Recorded Confirmed Last Taken Type OrthoWedge heel shoe to Left and #1 ea 11/15/22 04/29/23 Unknown Rx Right Foot blood-glucose meter (CareTouch #1 ea 11/19/22 04/29/23 Unknown Rx Glucose Monitoring System kit) pen needle, diabetic 32 gauge x #50 11/19/22 04/29/23 Unknown Rx 1/4 (BD Ultra-Fine Micro Pen Needle) Diabetic shoes with 3 sets of #1 ea 12/19/22 04/29/23 Unknown Rx insoles aspirin 81 mg tablet,delayed 81 mg PO EVERY OTHER DAY 04/29/23 04/29/23 04/29/23 04:30 History release took 2 tabs at home Allergies Allergy/AdvReac Type Severity Reaction Status Date / Time No Known Allergies Allergy Verified 04/29/23 07:38 PFSH Acute PFSH: Medical History (Updated 04/29/23 @ 08:32 by Joey Pastrana MD) CAD (coronary artery disease) Chronic back pain Diabetes Hernia History of alcoholism History of amputation of toe Hyperlipidemia Hypertension Psoriasis Surgical History (Updated 04/29/23 @ 08:25 by Joey Pastrana MD) History of appendectomy History of coronary artery bypass graft x 2 2006 Hx laparoscopic cholecystectomy Postsurgical percutaneous transluminal coronary angioplasty (PTCA) status Prior to 2006 Family History (Updated 04/29/23 @ 08:25 by Joey Pastrana MD) Other Family history of premature coronary artery disease Social History (Updated 04/29/23 @ 08:25 by Joey Pastrana MD) Smoking and tobacco status: former smoker Alcohol intake: current Alcohol use comment: 08/05 pint every other day Vitals/I&O/Wt Last Vital Signs Temp 97.9 F 04/29/23 05:44 Pulse 97 04/29/23 07:58 Resp 18 04/29/23 07:58 BP 159/98 04/29/23 07:58 Pulse Ox 93 04/29/23 07:58 O2 Del Method Room Air 04/29/23 07:58 04/28/23 04/29/23 04/29/23 22:59 06:59 14:59 Intake Total 1.6 / 1.6 Balance 1.6 / 1.6 Weight last 48 hrs Weight 86.183 kg Physical Exam Narrative: General exam demonstrates a white male no distress HEENT: Atraumatic and normocephalic. Oropharynx clear Neck is supple no thyromegaly. Probable 2 cm node left anterior cervical chain Cardiovascular regular rate and rhythm, no murmur Lungs clear no wheezing or crackles Abdomen is soft. Hernia noted left lower quadrant. Easily reducible Extremities no cyanosis clubbing or edema, cap refill brisk Skin psoriasis noted Neuro no obvious focal deficits Data 04/29/23 06:20 04/29/23 06:20 Other Labs: LFTs are normal with exception of bili of 1.7 Baseline troponin 16, repeat pending Albumin, calcium normal TSH in November was normal Chest x-ray demonstrates previous bypass surgery, no infiltrate. This was reviewed by me. EKG demonstrates sinus rhythm, right axis deviation, Q waves V1 and 2. This is per my evaluation. The emergency department was worried about some subtle concavity to ST segments in V1 and V2 and is discussing with cardiology who has been consulted. A&P Assessment and plan (1) Chest pain: Patient presents with chest discomfort that is concerning for coronary artery disease. He has past history of coronary artery disease with bypass grafting in 2006 and stenting prior to this. He has been noncompliant with his treatment for coronary artery disease, aspirin, statin, blood pressure medication, diabetic medication Continue aspirin, add statin, initiate beta-charles Anticoagulate with Lovenox. Cardiology consultation Check echocardiogram Trend troponins, EKG Telemetry Nitroglycerin drip has been started. Continue to titrate and monitor extremely closely. If can titrate down consider changing to ointment. (2) CAD (coronary artery disease): See above (3) Uncontrolled diabetes mellitus: Consistent carb diet Sliding scale insulin Check hemoglobin A1c (4) Hyperlipidemia: Initiate atorvastatin Qualifiers: Hyperlipidemia type: mixed hyperlipidemia Qualified Code(s): E78.2 - Mixed hyperlipidemia (5) History of alcoholism: [facility] protocol Monitor for withdrawal Plan Other medical problems as listed in his past medical history Full code currently Lovenox will suffice for DVT prophylaxis Significant concern in this patient with chest pain, equivocal EKG changes, initial elevated troponin, placed on a nitroglycerin drip with need for close monitoring. Attestations Medical Necessity Statement*: Will require less than 2 midnight stay for evaluation and treatment of chest discomfort Diagnoses Chest pain R07.9 CAD (coronary artery disease) I25.10 Uncontrolled diabetes mellitus Hyperlipidemia E78.2 Hyperlipidemia type: mixed hyperlipidemia History of alcoholism F10.21 Time Spent (min) 45
--- NOTE | 2023-04-29 08:35 | USCV_ITS ---
Hudson Griffin Age: 62 Gender: M : 1960 Exam Date: 04/29/2023 09:11 Ordering Phys: Joey Pastrana MD Technologist: Alok Salas Exam Location: [facility] – [place] Indication: chest pain BP: 149 / 86 HR: 90 Rhythm: Sinus Technical Quality: Adequate MEASUREMENTS (Male / Female) Normal Values 2D ECHO LV Diastolic Diameter PLAX 3.8 cm 4.2 - 5.9 / 3.9 - 5.3 cm LV Systolic Diameter PLAX 2.7 cm IVS Diastolic Thickness 1.0 cm 0.6 - 1.0 / 0.6 - 0.9 cm IVS Systolic Thickness 1.6 cm LVPW Diastolic Thickness 1.0 cm 0.6 - 1.0 / 0.6 - 0.9 cm LVPW Systolic Thickness 1.2 cm LVOT Diameter 2.0 cm LV Ejection Fraction 2D Teich 55.6 % LV Ejection Fraction MOD 2C 75.2 % LV Ejection Fraction 2C AL 75.5 % LA Diameter 3.3 cm M-MODE Aortic Annulus Diameter 2.8 cm LA Ao Ratio MM 1.1 MV E Point Septal Separation 0.6 cm DOPPLER AV Peak Velocity 152.0 cm/s LVOT Peak Velocity 91.0 cm/s AV Area Cont Eq vti 3.0 cm squared AV Area Cont Eq pk 2.0 cm squared MV Area PHT 3.4 cm squared Mitral E to A Ratio 0.9 MV E' Velocity 40.0 cm/s Mitral E to MV E' Ratio 10.7 Mitral E to LV E' Lateral Ratio 7.8 Mitral E to LV E' Septal Ratio 17.7 TR Peak Velocity 137.5 cm/s TR Peak Gradient 7.6 mmHg TV Peak E Velocity 79.0 cm/s Right Atrial Pressure 3.0 mmHg Pulmonary Artery Systolic Pressu 10.6 mmHg RV Acceleration Time 0.2 s FINDINGS Left Ventricle Normal LV size and ejection fraction of around 55%. Mild diffuse hypokinesia of the septum and the anteroseptal segments.Normal diastolic function. Grade I/IV diastolic dysfunction (abnormal relaxation filling pattern), normal to mildly elevated filling pressures. Right Ventricle The right ventricle is normal in size and function. Right Atrium The right atrium is normal in size. Left Atrium The left atrium is normal in size. Mitral Valve Mild mitral annular calcification. Aortic Valve Minimally thickened aortic valve Tricuspid Valve No gross abnormalities noted Pulmonic Valve No gross abnormalities noted Pericardium No pericardial effusion. Aorta Normal ascending aorta dimension. IVC The inferior vena cava is not visualized well CONCLUSIONS Normal LV size and ejection fraction of around 55%. Mild diffuse hypokinesia of the septum and the anteroseptal segments.Normal diastolic function. Grade I/IV diastolic dysfunction (abnormal relaxation filling pattern), normal to mildly elevated filling pressures. Mild mitral annular calcification. Minimally thickened aortic valve. There is no pericardial effusion. No intracardiac masses. No similar previous studies are available for comparison Dr Reyna Mcintosh MD FACC (Electronically Signed) Final Date: 29 April 2023 12:34 S
[2023-04-29] MEDS: thiamine 100 mg Tablet PO (09:23)
[2023-04-29] MEDS: multivitamin therapeutic Tablet 1 TAB PO (09:23)
[2023-04-29] MEDS: pantoprazole DR 40 mg Tablet PO (09:23)
[2023-04-29] MEDS: folic acid 1 mg Tablet PO (09:23)
[2023-04-29] MEDS: sodium chloride 0.9% 1,000 ML 75 ML IV (09:24)
--- NOTE | 2023-04-29 09:24 | P.CONIM_ITS ---
Providers/Reason For Consult Consulting Physician/Specialty*: DEXTER Mcintosh MD/cardiology Reason for Consult*: Patient with history of CAD, open heart surgery, presenting with chest pain Attending Physician: Joey Pastrana MD Primary Care Provider: Isabella Rogers MD History of Present Illness History of Present Illness Hudson Griffin is a 62 year old male with a history of coronary disease, status post two-vessel coronary bypass surgery in 2006, he is admitted to hospital through the emergency room where he presented with complaints of chest pain. Cardiology consult is requested for further cardiac evaluation recommendations. This patient apparently has been in his baseline state of health up until 430 this morning when he started having the pain. The pain was pressure-like in nature and was radiating across the chest and to the left shoulder area. He had some associated shortness of breath. No nausea, vomiting, sweating, dizziness or syncopal episode. He took an aspirin which apparently did not help the pain. After 20 minutes or so, he decided to call the ambulance. In the emergency room, he was treated with IV nitro, p.o. aspirin and Plavix. His chest symptoms gradually started subsiding. At the time of my examination, patient is mainly complaining about some left shoulder pain. The intensity of the pain was 8 over 10 in the morning. Currently the shoulder pain may be 3/10. He has no fever, chills or cough. He is having left groin pain and is diagnosed with inguinal hernia. He is planned to have surgery. Patient had a two-vessel coronary bypass surgery at the [facility] in 2006. According the patient, he never had any stress test or angiogram since the bypass surgery. He also did not have any active cardiac follow-up. He is scheduled to see Dr. Campbell the resource director in [place] for a preop evaluation for his hernia operation. In January of this year, he had an ER visit for chest pain. At that time hospital admission was recommended but the patient is signed out AGAINST MEDICAL ADVICE. He is known to have high blood pressure, dyslipidemia, hypertension and psoriasis. He has a history of smoking abuse 1 to 2 pack a day for 30 years or so which he quit 10 years ago. He drinks alcohol especially over the week end. Review of Systems Narrative: CONSTITUTIONAL: No fever or chills. EYES: No blurring of vision or other visual disturbances lately. ENT: No hoarseness of voice, auditory disturbances or sore throat. CARDIOVASCULAR: As mentioned above. RESPIRATORY: No significant cough. GASTROINTESTINAL: Inguinal hernia, awaiting surgery GENITOURINARY: No dysuria or hematuria. INTEGUMENTARY: Psoriasis for the last more than 30 years, currently is not on any treatment NEURO: No transient ischemic attacks or amaurosis. PSYCHIATRIC: No history of psychosis or major depression. HEMATOLOGIC: No bleeding disorders or significant anemia. ENDOCRINE: History of type 2 diabetes MUSCULOSKELETAL: No recent joint pain or swelling. ALLERGY/IMMUNOLOGY: As mentioned above. Medications/Allergies Home Medications Medication Instructions Recorded Confirmed Last Taken Type OrthoWedge heel shoe to Left and #1 ea 11/15/22 04/29/23 Unknown Rx Right Foot blood-glucose meter (nuevoStageuch #1 11/19/22 04/29/23 Unknown Rx Glucose Monitoring System kit) pen needle, diabetic 32 gauge x #50 11/19/22 04/29/23 Unknown Rx 1/4 (BD Ultra-Fine Micro Pen Needle) Diabetic shoes with 3 sets of #1 12/19/22 04/29/23 Unknown Rx insoles aspirin 81 mg tablet,delayed 81 mg PO EVERY OTHER DAY 04/29/23 04/29/23 04/29/23 04:30 History release took 2 tabs at home Allergies Allergy/AdvReac Type Severity Reaction Status Date / Time No Known Allergies Allergy Verified 04/29/23 07:38 Current Medications Generic Name Dose Route Start Last Admin Trade Name Edsonq PRN Reason Stop Dose Admin Folic Acid 1 mg 04/29/23 09:00 04/29/23 09:23 Folic Acid 1 Mg Tablet PO 1 mg DAILY RG Administration Nitroglycerin/Dextrose 50 mg in 250 mls @ 0 mls/hr 04/29/23 06:15 04/29/23 06:47 Nitroglycerin Drip IV 25 mcg/min .Q0M RG 7.5 mls/hr Titration Protocol Per Protocol Sodium Chloride 1,000 mls @ 75 mls/hr 04/29/23 08:45 04/29/23 09:24 Sodium Chloride 0.9% IV 75 mls/hr .[id number] RG Administration Multivitamins Therapeutic 1 tab 04/29/23 09:00 04/29/23 09:23 Multivitamin Therapeutic Tablet PO 1 tab DAILY RG Administration Pantoprazole Sodium 40 mg 04/29/23 08:40 04/29/23 09:[address] 40 Mg Tablet PO Not Given DAILY RG Thiamine Mononitrate 100 mg 04/29/23 09:00 04/29/23 09:23 Thiamine 100 Mg Tablet PO 100 mg DAILY RG Administration PFSH Acute PFSH: Medical History CAD (coronary artery disease) Chronic back pain Diabetes Hernia History of alcoholism History of amputation of toe Hyperlipidemia Hypertension Psoriasis Surgical History History of appendectomy History of coronary artery bypass graft x 2 2006 Hx laparoscopic cholecystectomy Postsurgical percutaneous transluminal coronary angioplasty (PTCA) status Prior to 2006 Family History Other Family history of premature coronary artery disease Social History Smoking and tobacco status: former smoker Alcohol intake: current Alcohol use comment: 08/05 pint every other day Vitals/I&O/Wt Last Vital Signs Temp 97.9 F 04/29/23 05:44 Pulse 97 04/29/23 08:33 Resp 18 04/29/23 08:33 BP 159/98 04/29/23 08:33 Pulse Ox 93 04/29/23 08:33 O2 Del Method Room Air 04/29/23 08:33 04/28/23 04/29/23 04/29/23 22:59 06:59 14:59 Intake Total 1.6 / 1.6 Balance 1.6 / 1.6 Weight last 48 hrs Weight 190 lb Physical Exam Narrative: GENERAL: The patient is alert and oriented times three. Not in any acute distress. HEENT: No significant pallor, icterus or lymphadenopathy.Oral cavity: There are no mucous membrane lesions. NECK: Trachea appears to be central. No masses noted. No JVD or thyromegaly ap preciated. Enlarged lymph node on the left side of the neck RESPIRATORY: Chest is symmetrical. No intercostals muscle retraction or any accessory muscle activation. There is no chest wall tenderness. Breath sounds are heard bilaterally. No rales or rhonchi heard. No evidence of any consolidation. BREASTS: Deferred. HEART: The heart sounds are normal. No S3 or S4. No significant murmurs. No pericardial rub ABDOMEN: No vessel pulsations or distention. No tenderness. No organomegaly appreciated. Bowel sounds are normally heard. : Deferred. RECTAL: Deferred. LYMPHATIC: No lymphadenopathy noted in the neck. EXTREMITIES: No edema or cyanosis. No clubbing. MUSCULOSKELETAL: No acute joint deformities or swelling SKIN: Generalized skin exfoliation and erythema NEUROPSYCHIATRIC: The patient is alert and oriented x3. Appears to be in a good mood. No tremors or rigidity noted. Data 04/29/23 06:20 04/29/23 06:20 Other Labs: Laboratory Last Values WBC 6.18 10^3/uL (3.29-11.43) 04/29/23 06:20 Corrected WBC Cancelled 04/29/23 05:57 RBC 5.43 10^6/uL (3.85-5.65) 04/29/23 06:20 Hgb 16.20 g/dL (11.27-16.99) 04/29/23 06:20 Hct 46.7 % (37-53) 04/29/23 06:20 MCV 86.0 fl (82-101) 04/29/23 06:20 MCH 29.8 pg (27-33) 04/29/23 06:20 MCHC 34.7 g/dL (30-55) 04/29/23 06:20 RDW 12.0 % (12.1-15.1) L 04/29/23 06:20 Plt Count 238 10^3/cmm (157-399) 04/29/23 06:20 MPV 10.2 fL (7.4-10.4) 04/29/23 06:20 Gran % Cancelled 04/29/23 05:57 Neut % (Auto) 60.3 % 04/29/23 06:20 Lymph % (Auto) 22.2 % 04/29/23 06:20 Baxter % (Auto) 9.9 % 04/29/23 06:20 Eos % (Auto) 5.2 % 04/29/23 06:20 Baso % (Auto) 0.5 % 04/29/23 06:20 Neut # (Auto) 3.73 10^3/uL (1.8-7.7) 04/29/23 06:20 Lymph # (Auto) 1.4 10^3/uL (0.8-4.8) 04/29/23 06:20 Baxter # (Auto) 0.6 10^3/uL (0.2-0.9) 04/29/23 06:20 Eos # (Auto) 0.3 10^3/uL (0.0-0.8) 04/29/23 06:20 Baso # (Auto) 0.0 10^3/uL (0.0-0.1) 04/29/23 06:20 Absolute Gran (auto) Cancelled 04/29/23 05:57 Nucleated RBC % (auto) 0 % 04/29/23 06:20 Nucleated RBCs # 0.0 /100WBC 04/29/23 06:20 Sodium 137 mmol/L (136-145) 04/29/23 06:20 Potassium 4.0 mmol/L (3.5-5.1) 04/29/23 06:20 Chloride 99 mmol/L (98-107) 04/29/23 06:20 Carbon Dioxide 28 mmol/L (22-29) 04/29/23 06:20 Anion Gap 14.0 (5-19) 04/29/23 06:20 BUN 14 mg/dL (8-23) 04/29/23 06:20 Creatinine 0.7 mg/dL (0.7-1.2) 04/29/23 06:20 GFR Calculation 113.5 mL/min (90-130) 04/29/23 06:20 Glucose 277 mg/dL (65-115) H 04/29/23 06:20 Estimat Average Glucose 212 04/29/23 06:20 Hemoglobin A1c 9.0 % (4.0-6.0) H 04/29/23 06:20 Calculated Osmolality 294 mOsm/kg (285-295) 04/29/23 06:20 Calcium 9.2 mg/dL (8.5-10.5) 04/29/23 06:20 Magnesium 1.8 mg/dL (1.7-2.3) 04/29/23 06:20 Total Bilirubin 1.7 mg/dL (0.15-1.2) H 04/29/23 06:20 AST 14 U/L (0-40) 04/29/23 06:20 ALT 29 U/L (0-41) 04/29/23 06:20 Alkaline Phosphatase 72 U/L (40-130) 04/29/23 06:20 Troponin T Baseline 16 ng/L (0-15) H 04/29/23 06:20 Troponin T 120 Minute 13.80 ng/L (0-15) 04/29/23 08:10 Delta Troponin T -2.20 ABS# (0-10) L 04/29/23 08:10 Total Protein 6.1 g/dL (6.6-8.7) L 04/29/23 06:20 Albumin 4.1 g/dL (3.5-5.2) 04/29/23 06:20 Globulin 2.0 g/dL (1.3-4.6) 04/29/23 06:20 CXR: My impression: Borderline cardiac silhouette. No acute lung infiltrate. EKG 1: My Interpretation: Sinus rhythm with a rate of 91 bpm. 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 Some nonspecific ST changes. A&P Assessment and plan (1) Unstable angina pectoris: Patient chest pain may suggest unstable angina. The EKG changes are nonspeci fic. No evidence of Miochol injury. The patient may be treated with subcu Lovenox, aspirin, Plavix, beta-charles, statin and other current medications. (2) Hyperlipidemia: May continue on the current medications. Qualifiers: Hyperlipidemia type: mixed hyperlipidemia Qualified Code(s): E78.2 - Mixed hyperlipidemia (3) Atherosclerotic heart disease: I will try to get the medical records from [place] especially about his open heart surgery. He has a questionable history of PCI after the surgery. We will try to get those records as well. (4) Uncontrolled diabetes mellitus: Aggressive management of the diabetes would be appropriate. Patient has a history of diabetic neuropathy and nonhealing foot ulcers (5) Benign essential HTN: Currently the blood pressures are stage II. We will try to optimize the antihypertensive medications. Plan Other problems are Extensive psoriatic skin lesions Cervical lymph node enlargement History of alcohol abuse Fine tremor Diabetic neuropathy History of diabetic foot ulcers History of osteomyelitis Noncompliance to medical treatment and follow-up Patient had echocardiogram this morning. The LV ejection fraction was around 50%. There was mild diffuse hypokinesia of the septum. So far the cardiac enzymes are negative for myocardial injury. We may consider doing a Myocardial perfusion imaging versus cardiac catheterization to further evaluate his symptoms. He may be closely monitored on telemetry. After reviewing his medical records and also based on the patient's clinical progress, further recommendations will be made. Thank for the opportunity to evaluate this patient and make these recommendations Consult Attestations Medical Necessity Statement: Patient requires continued hospital stay for close monitoring and further management Coding Level of Care Code 13378 Diagnoses Unstable angina pectoris I20.0 Hyperlipidemia E78.2 Hyperlipidemia type: mixed hyperlipidemia Atherosclerotic heart disease I25.10 Uncontrolled diabetes mellitus Benign essential HTN I10
[2023-04-29] MEDS: metoprolol tartrate 25 mg Tablet PO (09:28)
[2023-04-29 09:34] LABS: Magnesium 1.8 mg/dL (1.7-2.3)
[2023-04-29 09:41] LABS: Estmated Average Glucose 212
--- NOTE | 2023-04-29 09:45 | CT_ITS ---
WS: [id number] CT NECK WITH CONTRAST HISTORY: enalrged lymph node, right ant SCM area TECHNIQUE: Contiguous 2 mm axial images are performed through the neck with intravenous contrast. Sag ittal and coronal reformats are also submitted. All CT scans at [facility] use at least one o f these dose optimization techniques: automated exposure control; mA and/or kV adjustment per patient size (includes targeted exams where dose is matched to clinical indication); or iterative reconstruc tion. CONTRAST: CONTRAST: Omnipaque 350; 100 mL IV. DLP: 681.71 mGy.cm COMPARISON: None available. Nasopharynx, oropharynx, hypopharynx and larynx are unremarkable. No soft tissue masses or abnormal e nhancement. Mild fullness at the base of the tongue but no enhancing mass identified. Torus tubarius and fossa of Rosenmuller and parapharyngeal fat are normal. Bilateral enlarged lymph nodes which are markedly hypervascular. The larger lymph nodes along the LEF T cervical chain with marked hypervascularity. The largest lymph node extends over a length of 3.6 x 2.5 cm. There are no additional cervical chain lymph nodes at level 2 level 3 and level 4 and supracl avicular. There are smaller lymph nodes but abnormal lymph nodes along the RIGHT cervical chain. Some of these are hypervascular. Largest lymph node with a maximum diameter of 1.0 cm at the level of the hyoid. Some of these lymph nodes are more low-attenuation with variable enhancement. The abnormal lymph nodes do not display the internal and external carotid arteries therefore not like ly due to carotid body tumor. Due to the enhancement pattern schwannoma should be considered along th e LEFT neck. LEFT thyroid nodule extends into the isthmus. This nodule contains calcification. Nodule measures 2.3 x 1.2 cm. No osseous abnormalities. Visualized portions of the skull base demonstrate no abnormalities. Orbits and globes are within norm al limits. No soft tissue masses. Visualized paranasal sinuses and mastoid air cells are normal. Lung apices are clear. IMPRESSION: 1. Bilateral cervical chain lymphadenopathy. The largest lymph nodes are markedly hypervascular at mu ltiple levels along the LEFT cervical chain. Largest lymph node measures 3.6 x 2.5 cm. Hypervascular lymph nodes can be seen with papillary thyroid carcinoma. ENT follow-up recommended. 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 This hypervascular mass does not display the carotid arteries. Schwannoma should be considered due to its position and hypervascu larity. 2. LEFT thyroid mass with central calcification measures 2.3 x 1.2 cm. Malignancy is not excluded. EN T follow-up recommended. 3. Increased soft tissue at the tongue base. No enhancing mass identified. Consider direct visualizat ion to exclude occult neoplasm due to the bilateral cervical chain lymphadenopathy. Notified Jeoy Pastrana MD at 04/29/2023 11:54 AM.
--- NOTE | 2023-04-29 09:46 | CT_ITS ---
WS: [id number] CT CHEST ANGIOGRAPHY WITH REFORMATS HISTORY: chest pain TECHNIQUE: Contiguous axial images are obtained through the chest during arterial injection of intrav enous contrast. Images are reconstructed to evaluate the pulmonary arteries. MIP imaging also reviewe d. All CT scans at [facility] use at least one of these dose optimization techniques: automat ed exposure control; mA and/or kV adjustment per patient size (includes targeted exams where dose is matched to clinical indication); or iterative reconstruction. CONTRAST: Omnipaque 350; 1 mL IV. DLP: 681.71 mGy.cm COMPARISON: None available. Very good opacification of the pulmonary arteries. There are no filling defects. Mild enlargement of the pulmonary artery. Normal sized aorta. The heart is very slightly enlarged. No RIGHT heart strain. Bilateral paratracheal lymph nodes are subcentimeter. There are several small lymph nodes within the mediastinum. No enlarged lymph nodes. Lung volumes are decreased due to poor inspiration. No consolidations. Mild interstitial thickening b ut probably improved with a better inspiratory effort. No pericardial or pleural effusions. Prior CAB G. LEFT thyroid nodule contains calcifications and is low attenuation. Thyroid nodule extends into the L EFT isthmus and measures 2.4 x 1.5 cm. LEFT supraclavicular soft tissue mass is identified measuring 2.5 cm. There are additional smaller supraclavicular lymph nodes identified. No destructive bone lesions. IMPRESSION: 1. No pulmonary embolism. 2. No pulmonary mass or pneumonia. 3. Small mediastinal and hilar lymph nodes. 4. Moderate pulmonary hypertension. 5. LEFT thyroid mass with calcification measuring 2.4 x 1.5 cm. Recommend follow-up ultrasound evalua tion. 6. Enlarged LEFT supraclavicular lymph nodes. Refer to the neck CT performed on the same day.
[2023-04-29] MEDS: iohexol 350 mg/mL 500 mL Btl (per mL) IV (10:36)
[2023-04-29] MEDS: morphine 4 mg/mL SDV 1 mL 2 MG IVP ×2 (10:57→16:31)
[2023-04-29] MEDS: enoxaparin 80 mg/0.8 mL Syringe SUBCUT (10:58)
[2023-04-29 11:45] LABS: Glucose Point of Care 222 mg/dL (70-110)
--- NOTE | 2023-04-29 11:58 | US_ITS ---
WS: [id number] THYROID ULTRASOUND HISTORY: neck mass COMPARISON: Neck CT 04/29/2023 Right lobe: 1.4 cm x 1.4 cm x 3.2 cm (w x ap x l). Volume: 3.3 cm3. Normal size and echotexture. No significant are dominant nodules are present. RIGHT cervical chain mass with increased vascularity measures 1.7 x 1.2 x 3.0 cm. This may be an abno rmal lymph node. Left lobe: 2.4 cm x 2.0 cm x 3.6 cm (w x ap x l). Volume: 9.3 cm3. Very mildly prominent LEFT thyroid. There is a hypoechoic lobulated mass centered in the mid LEFT thy roid extending into the isthmus. This is the same mass described on the recent CT. The calcification is not as evident by ultrasound. Mass measures approximately 2.4 x 2.0 x 3.6 cm. There is bulging of the contour of the gland. Reidentified are the soft tissue masses along the LEFT cervical chain. These are very hypervascular m asses. These are probably abnormal lymph nodes. There is one lymph node that is cystic with a few antonella id mural nodules. There is marked increased vascularity. Isthmus: 0.9 cm. IMPRESSION: 1. LEFT thyroid mass extending into the isthmus. Mass measures 2.4 x 2.0 x 3.6 cm. Neoplasm is not ex cluded. 2. Bilateral cervical chain masses are markedly hypervascular. Solid and cystic components. Greatest involvement on the LEFT. Hypervascular metastatic lymphadenopathy should be considered. Not a typical location for carotid body tumor. Schwannoma within the differential but they typically do not enhanc e this much in the neck.
[2023-04-29] MEDS: HYDROcodone-acetaminophen 5-325 mg Tablet 1 TAB PO (12:36)
[2023-04-29] MEDS: insulin lispro 100 unit/1 mL SUBCUT ×2 (12:36→17:32)
--- NOTE | 2023-04-29 12:57 | ECG_ITS ---
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 Measurements Intervals [place] Rate: 68 P: 34 KS: 151 QRS: 101 QRSD: 92 T: 95 QT: 420 QTc: 449 Interpretive Statements SINUS RHYTHM RIGHT AXIS DEVIATION [QRS AXIS > 100] V2 V3 lead reversal Comparison with the previous EKG is not possible because of the defective EKG Electronically Signed On 04-29-2023 21:16:21 CDT by Reyna Mcintosh M.D. [email or web address]
[2023-04-29 14:10] LABS: Troponin 5 6HR 12.63 ng/L (0-15); Troponin 5 6HR Delta -3.37 ng/L (0-12)
[2023-04-29 16:46] LABS: Glucose Point of Care 187 mg/dL (70-110)
[2023-04-29 21:41] LABS: Glucose Point of Care 221 mg/dL (70-110)
--- NOTE | 2023-04-29 23:30 | PC.NURSE ---
Patient medications all discontinued. Called and spoke to inpatient pharmacy. Pharmacy said it looked like the patient had been discharged around 1900 and then added back as inpatient. No discharge orders had been made by a physician. Hospitalist was notified, medications were reordered at approximately 2300. Patient unable to receive medications after [address] Mcintosh's verbal order due to cardiac cath procedure he is having in the morning.
[2023-04-30] VITALS (65 sets, daily range): BP systolic 120–163; BP diastolic 65–99; PULSE 62–88; RESP 13–18; TEMP 36.2–36.6; O2SAT 91–99
[2023-04-30] MEDS: nitroglycerin drip 50 MG/250 ML PREMIX IV (01:00)
--- NOTE | 2023-04-30 05:09 | XACV_ITS ---
Exam Room: 2 Ht: 183 cm Wt: 86 kg BSA: 2.10 m2 Gender: Male : 1960 Any Known Allergies: No known allergies Exam Priority: Routine Procedure(s): Procedure Description: Diagnostic procedure Procedure Description: Left Heart Catheterization Procedure Description: Left ventriculography Procedure Description: Venous Graft Catheterization Procedure Description: BUSCH Graft Catheterization Procedure Description: Coronary Angiography Diagnostic Cath Status: Urgent Diagnostic Findings * The left main is extremely short vessel which appears to bifurcate to the left anterior descending artery and circumflex artery. * The left anterior descending artery appears to be flush occluded at the ostium. It appears to have a long proximal stented segment. * The left circumflex artery is a medium caliber vessel which gives off a high obtuse marginal branch and then continues in the AV groove as a relatively small caliber slender vessel. The obtuse marginal artery was found to have proximal around 20 to 30% irregular narrowing. No significant stenotic lesions were noted.. * The right coronary artery is a diffusely ectatic vessel with a mild diffuse disease. The PDA branch, a small caliber vessel, was found to have around 70% ostial narrowing. The mid segment of the PDA also was found to have around 50% lesion. The PLV branch was found to have minimal intimal irregularities. * The venous graft to the diagonal artery was found to be totally occluded at the ostium. * The BUSCH to the LAD was found to be patent and very tortuous. The left anterior descending artery, distal to the anastomosis was found to be relatively small caliber vessel which tapers off towards the LV apex. This segment of the artery was found to have moderate to severe diffuse disease. Conclusions 1. 62-year-old white male with a history of coronary disease, status post coronary bypass surgery in 2007, present with the symptoms history of unstable angina. He had a BUSCH to the LAD and venous graft to the diagonal branch. In view of his history and presenting symptoms, in order to further evaluate his coronary status, a cardiac catheterization was recommended. Patient underwent left heart catheterization with left and right coronary angiogram, LV angiogram and graft angiogram today. The findings are as follows. 2. The left main is extremely short vessel. Left and descending artery was found to be flush occluded at the ostium. The nondominant left circumflex artery was found to have mild disease proximally. The right coronary arteries diffusely ectatic with mild diffuse disease. The PDA branch of the artery was found to have a high-grade lesion near the ostium. It is a relatively small caliber vessel. PLV branch was found to have mild diffuse intimal irregularities. The venous graft to the diagonal branch was totally occluded. The BUSCH to the LAD was found to be patent. The distal LAD, distal to the anastomosis was found to have moderate to severe diffuse disease. It is a relatively small caliber vessel. She was found to be tapering off towards the LV apex. 3. The cardiac catheterization data was reviewed and discussed with the Dr. Escalante. The PDA branch was a relatively small caliber vessel. The distal LAD also is a small caliber vessel and is difficult to access. Based on the anatomy, it was thought to be appropriate to treat him medically. Recommendations * Patient is transferred to medical floor in stable condition. Diagnostic RX Recommendation: medical therapy and/or counseling LV EDP: 11 mmHg Ventriculography Ejection Fraction: 55.0 % Left Ventriculography Findings: * The LV gram was performed in the AGUILAR projection. The LV cavity appears to be normal size. LV ejection fraction was around 55%. No filling defects were noted. Mild hypokinesis of the anteroapical region was noted. The LVEDP was 11 mmHg. Pressures Phase:Rest AO : 153 / 76 ( 105 ) @ 8:43:00 AM 189 / 83 ( 128 ) @ 9:16:00 AM 184 / 82 ( 126 ) @ 9:16:00 AM LV : 124 / 7 / 11 @ 9:14:00 AM 179 / -12 / 18 @ 9:16:00 AM 182 / -9 / 19 @ 9:16:00 AM Valves Phase:DefaultPhase AV : 0.0 @ 8:28:38 AM 0.0 @ 8:28:38 AM AV Mean Gradient: 0.0 @ 8:28:38 AM 0.0 @ 8:28:38 AM Clinical Evaluation EBL: 5mL-10mL Procedural Details Procedure Consent Obtained. Admit Source: In Patient. Pre-Procedure Time Out. Identified patient by full name and date of as verbalized by the patient/guarantor. Does the consent match the physician's order: Yes. Accurate & Complete Informed Consent: Yes. Inpatient/Outpatient History & Physical on Chart: Yes. If H&P is completed, is and addenduem needed: No; If yes, is the addendum complete: N/A. Visualize and Verify Site with Patient/Guarantor: N/A. Relevant Radiology Images available: No. The risks, benefits, and alternatives of sedation and/or procedure were discussed by physician. The patient agrees to continue. Procedure started. [facility] Clinical Fraility Score: 4: Vulnerable. 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 Chest Pain Symptom Assessment: Typical Angina Symptoms. Correct patient, site and procedure confirmed by cath team. Current diagnosis: Unstable angina. PERRLA. Strong, equal hand director facilities maintenance bilaterally. Lungs clear x 5 lobes. IV Site on Arrival: 18 gauge in the right anticubital. IV Site on Arrival: 18 gauge in the left forearm. IV Fluids: 0.9% NaCl at 75ml/hr. 100 mL infused prior to chemical laboratory assistant. Pre Procedural Pulses: bilateral posterior tibial was Doppled. Pre Procedural Pulses: bilateral dorsalis pedis was Doppled. Oxygen started at 2liters/min via nasal canula. bilateral groins was prepped with chloroprep then draped in the usual sterile fashion. Physician notified. Baseline sample Acquired. HR: 66 BPM. Physician arrived. Physician scrubbed in. Immediate Pre-Procedure Time Out. Correct Patient: Yes; Correct Procedure: Yes; Correct Site: Yes; Correct Patient Position: Yes; Correct Supplies: Yes; Dried Flammable Prep: Yes; Blood Products Available: No;. Lidocaine 1% infiltrated to the right groin. Arterial access obtained with micropuncture set. A 5 wallisian JL4 catheter in over exchange wire. Multiple views taken of left coronary artery. Catheter removed over the exchange wire. A 5 wallisian JR4 catheter in over wire. Multiple views taken of right coronary artery. Exchange wire in through catheter. Catheter repositioned to left subclavian artery. Exchange wire out. Exchange wire in through catheter. Catheter removed over the exchange wire. A 5 wallisian IM catheter in over wire. Catheter removed over the exchange wire. 5fr sheath exchanged for 6fr 23cm sheath over exchange wire. A 5 wallisian JR4 catheter in over exchange wire. Catheter directed to subclavian artery. BUSCH to LAD visualized. SVG to Diaganol occluded. Catheter removed over the exchange wire. A 5 wallisian Angled Pig catheter in over wire. EDP Sample taken: LV 124/7,11; HR: 75 BPM; SpO2: 100%. LV gram performed in AGUILAR @ 10 mL/second for a total of 30 mL. EDP Sample taken: LV 179/-13,18; HR: 73 BPM; SpO2: 100%. Pullback taken: LV 182/-10,19; AO 189/83(128); Mean: 0mmHg, Peak to Peak: 0mmHg, SEP: 7sec/min; HR: 76 BPM; SpO2: 100%. Catheter removed over the exchange wire. Physician scrubbed out. Physician review of cine films. Side port of sheath attached to Normal Saline flush at KVO to maintain patency. A Suture was successful obtaining hemostatsis at the Right Femoral artery insertion site. Sheath(s) sutured into position with 2-0 silk and sterile 4x4's and Op-site applied over the site. No oozing or signs and symptoms of hematoma noted. Arterial sheath flushed and connected to tranducer and pressure bag with heparinized saline. Post Procedure: Pulses reassessed and unchanged. PERRLA. Strong, equal hand director facilities maintenance bilaterally. No VTE prophylaxis required. Medication's Wasted: Heparin = 2500 units. Total IV fluids: 160 mL. Post-op diagnosis: Occluded SVG to diagonal, High grade lesion to distal LAD and PDA. Estimated blood loss: 5mL-10mL. Complications: None. Responsiveness - Normal response to verbal stimuli; alert and oriented, PERRLA. Airway - Unaffected, no intervention required; spontaneous ventilation. Circulation: W/N/L, pulses unchanged. Nausea/Vomiting: No. Procedure completed. Patient transferred by bed to 1st floor. Vital chart was stopped. Access Site Site: Right Femoral artery Sheath Size: 6 Fr Hemostasis Method: Suture Hemostasis Success: Successful Procedure Medications Start: 7:28 AM Stop: 7:28 AM Medication: Fentanyl Amount: 50 mcg Route: I.V. Start: 7:32 AM Stop: 7:32 AM Medication: Versed Amount: 1 mg Route: I.V. Start: 7:37 AM Stop: 7:37 AM Medication: Versed Amount: 1 mg Route: I.V. Start: 7:43 AM Stop: 7:43 AM Medication: Fentanyl Amount: 50 mcg Route: I.V. Start: 7:48 AM Stop: 7:48 AM Medication: Heparin Amount: 1500 units Route: I.V. Start: 8:04 AM Stop: 8:04 AM Medication: Fentanyl Amount: 50 mcg Route: I.V. Start: 8:09 AM Stop: 8:09 AM Medication: Fentanyl Amount: 50 mcg Route: I.V. I, the attending physician, have reviewed and verified all procedure medications. Yes, all medications given per verbal order History/Risk Factors Hypertension: Yes Dyslipidemia: Yes Peripheral Arterial Disease (PAD): No Myocardial Infarction (OK): No Obesity: No Renal Disease: No Tobacco Use: Never Prior Interventions PCI: Yes CABG: Yes Valve Surgery: No Report Signatures Finalized by Dr Reyna Mcintosh MD [facility] on 05/01/2023 09:03 AM
[2023-04-30 05:17] LABS: Basophils % 0.4 %; Eosinophils # 0.4 10^3/uL (0.0-0.8); Eosinophils % 5.2 %; Lymphocytes % 13.7 %; Mean Corpuscular HGB Conc 34.3 g/dL (30-55); Mean Corpuscular Hemoglobin 30.3 pg (27-33); Mean Corpuscular Volume 88.4 fl (82-101); Mean Platelet Volume 10.3 fL (7.4-10.4); Monocytes # 0.6 10^3/uL (0.2-0.9); Monocytes % 8.2 %; Neutrophils # 5.08 10^3/uL (1.8-7.7); Nucleated Red Blood Cells % 0 %; Platelet Count 194 10^3/cmm (157-399); Red Blood Count 4.75 10^6/uL (3.85-5.65); Red Cell Distribution Width 12.1 % (12.1-15.1); White Blood Count 7.16 10^3/uL (3.29-11.43)
[2023-04-30] MEDS: diphenhydrAMINE 50 mg Capsule PO (05:20)
[2023-04-30] MEDS: sodium chloride 0.9% 1,000 ML 50 ML IV (05:22)
[2023-04-30 05:39] LABS: Alanine Aminotransferase 71 U/L (0-41); Albumin Level 3.6 g/dL (3.5-5.2); Alkaline Phosphatase 82 U/L (40-130); Aspartate Amino Transferase 31 U/L (0-40); Blood Urea Nitrogen 10 mg/dL (8-23); Calcium 8.6 mg/dL (8.5-10.5); Carbon Dioxide 25 mmol/L (22-29); Chloride 99 mmol/L (98-107); Globulin 2.4 g/dL (1.3-4.6); Glomerular Filtration Rate 167.4 mL/min (90-130); Glucose 240 mg/dL (65-115); Magnesium 1.6 mg/dL (1.7-2.3); Osmolality Calculated 285 mOsm/kg (285-295); Sodium 134 mmol/L (136-145); Total Bilirubin 1.8 mg/dL (0.15-1.2)
--- NOTE | 2023-04-30 06:55 | P.PN_ITS ---
Subjective Subjective: The patient is feeling okay. He has some vague discomfort of the chest but states it is not bad. Blood pressure is elevated. No fever or chills. No cough. The labs are acceptable. No new symptoms Medications: Medication Review Details: Current Medications Acetaminophen (Acetaminophen 325 Mg Tablet) 650 mg PO Q6H PRN PRN Reason: Mild/Mod Pain Or Temp >/= 101 Aspirin (Aspirin 81 Mg Ec Tablet) 81 mg PO DAILY RG Atorvastatin Calcium (Atorvastatin 40 Mg Tablet) 40 mg PO BEDTIME [facility] Last Admin: 04/29/23 23:59 Dose: Not Given Dextrose (Dextrose 50% Syringe 50 Ml) 50 ml IVP PRN PRN; Protocol PRN Reason: hypoglycemia protocol Dextrose (Dextrose 50% Syringe 50 Ml) 25 ml IVP ONCE PRN; Protocol PRN Reason: hypoglycemia protocol Enoxaparin Sodium (Enoxaparin 100 Mg/Ml Syringe) 90 mg 1 mg/kg (90 mg) SUBCUT Q12H [facility] Last Admin: 04/30/23 00:00 Dose: Not Given Folic Acid (Folic Acid 1 Mg Tablet) 1 mg PO DAILY [facility] Glucagon (Glucagon 1 Mg/Ml Inj 1 Ml) 1 mg IM ONCE PRN; Protocol PRN Reason: Adult Acute Hypoglycemia Prot. Sodium Chloride (Sodium Chloride 0.9%) 1,000 mls @ 50 mls/hr IV .Q20H [facility] Last Admin: 04/30/23 05:22 Dose: 50 mls/hr Dextrose (D5w) 500 mls @ 100 mls/hr IV ONCE PRN; Protocol PRN Reason: Adult Acute Hypoglycemia Prot Nitroglycerin/Dextrose (Nitroglycerin Drip) 50 mg in 250 mls @ 0 mls/hr IV .Q0M [facility]; Protocol Last Titration: 04/30/23 05:35 Dose: 10 mcg/min, 3 mls/hr Insulin Human Lispro (Insulin Lispro 100 Unit/1 Ml) 0 unit SUBCUT TIDWM RG; Protocol Lorazepam (Lorazepam 2 Mg Tablet) 2 mg PO Q4H PRN; Protocol PRN Reason: WITHDRAWAL Lorazepam (Lorazepam 2 Mg/Ml Inj 1 Ml) 2 mg IVP PRN PRN; Protocol PRN Reason: WITHDRAWAL Lorazepam (Lorazepam 2 Mg/Ml Inj 1 Ml) 2 mg IM Q4H PRN; Protocol PRN Reason: ALCOWD Metoprolol Tartrate (Metoprolol Tartrate 25 Mg Tablet) 25 mg PO Q12H [facility] Last Admin: 04/30/23 00:00 Dose: Not Given Morphine Sulfate (Morphine 4 Mg/Ml Sdv 1 Ml) 2 mg IVP Q4H PRN PRN Reason: SEVERE PAIN Multivitamins Therapeutic (Multivitamin Therapeutic Tablet) 1 tab PO DAILY [facility] Ondansetron HCl (Ondansetron 2 Mg/Ml Sdv 2 Ml) 4 mg IVP Q8H PRN PRN Reason: vomiting, or N/V if npo Pantoprazole Sodium (Pantoprazole 40 Mg Sdv) 40 mg IVP Q24H [facility] Last Admin: 04/30/23 00:01 Dose: Not Given Thiamine Mononitrate (Thiamine 100 Mg Tablet) 100 mg PO DAILY [facility] Vitals/I&O/Wt Last Vital Signs Temp 97.1 F L 04/30/23 00:20 Pulse 74 04/30/23 05:37 Resp 18 04/29/23 15:00 BP 163/92 04/30/23 04:35 Pulse Ox 99 04/30/23 04:35 O2 Del Method Room Air 04/29/23 08:33 04/29/23 04/29/23 04/30/23 14:59 22:59 06:59 Intake Total 314.5 / 314.5 20.625 / 335.125 Balance 314.5 / 314.5 20.625 / 335.125 Weight last 48 hrs Weight 190 lb Physical Exam Narrative: GENERAL: The patient is alert and oriented times three. Not in any acute distress. HEENT: No significant pallor, icterus or lymphadenopathy.Oral cavity: There are no mucous membrane lesions. NECK: Trachea appears to be central. No masses noted. No JVD or thyromegaly appreciated. Enlarged lymph node on the left side of the neck RESPIRATORY: Chest is symmetrical. No intercostals muscle retraction or any accessory muscle activation. There is no chest wall tenderness. Breath sounds are heard bilaterally. No rales or rhonchi heard. No evidence of any cons olidation. BREASTS: Deferred. HEART: The heart sounds are normal. No S3 or S4. No significant murmurs. No pericardial rub ABDOMEN: No vessel pulsations or distention. No tenderness. No organomegaly appreciated. Bowel sounds are normally heard. : Deferred. RECTAL: Deferred. LYMPHATIC: No lymphadenopathy noted in the neck. EXTREMITIES: No edema or cyanosis. No clubbing. MUSCULOSKELETAL: No acute joint deformities or swelling SKIN: Generalized skin exfoliation and erythema NEUROPSYCHIATRIC: The patient is alert and oriented x3. Appears to be in a good mood. No tremors or rigidity noted. Data 04/30/23 05:02 04/30/23 05:02 Other Labs: Laboratory Last Values WBC 7.16 10^3/uL (3.29-11.43) 04/30/23 05:02 Corrected WBC Cancelled 04/29/23 05:57 RBC 4.75 10^6/uL (3.85-5.65) 04/30/23 05:02 Hgb 14.40 g/dL (11.27-16.99) 04/30/23 05:02 Hct 42.0 % (37-53) 04/30/23 05:02 MCV 88.4 fl (82-101) 04/30/23 05:02 MCH 30.3 pg (27-33) 04/30/23 05:02 MCHC 34.3 g/dL (30-55) 04/30/23 05:02 RDW 12.1 % (12.1-15.1) 04/30/23 05:02 Plt Count 194 10^3/cmm (157-399) 04/30/23 05:02 MPV 10.3 fL (7.4-10.4) 04/30/23 05:02 Gran % Cancelled 04/29/23 05:57 Neut % (Auto) 71.0 % 04/30/23 05:02 Lymph % (Auto) 13.7 % 04/30/23 05:02 Crowley % (Auto) 8.2 % 04/30/23 05:02 Eos % (Auto) 5.2 % 04/30/23 05:02 Baso % (Auto) 0.4 % 04/30/23 05:02 Neut # (Auto) 5.08 10^3/uL (1.8-7.7) 04/30/23 05:02 Lymph # (Auto) 1.0 10^3/uL (0.8-4.8) 04/30/23 05:02 Crowley # (Auto) 0.6 10^3/uL (0.2-0.9) 04/30/23 05:02 Eos # (Auto) 0.4 10^3/uL (0.0-0.8) 04/30/23 05:02 Baso # (Auto) 0.0 10^3/uL (0.0-0.1) 04/30/23 05:02 Absolute Gran (auto) Cancelled 04/29/23 05:57 Nucleated RBC % (auto) 0 % 04/30/23 05:02 Nucleated RBCs # 0.0 /100WBC 04/30/23 05:02 Sodium 134 mmol/L (136-145) L 04/30/23 05:02 Potassium 4.0 mmol/L (3.5-5.1) 04/30/23 05:02 Chloride 99 mmol/L (98-107) 04/30/23 05:02 Carbon Dioxide 25 mmol/L (22-29) 04/30/23 05:02 Anion Gap 14.0 (5-19) 04/30/23 05:02 BUN 10 mg/dL (8-23) 04/30/23 05:02 Creatinine 0.5 mg/dL (0.7-1.2) L 04/30/23 05:02 GFR Calculation 167.4 mL/min (90-130) H 04/30/23 05:02 Glucose 240 mg/dL (65-115) H 04/30/23 05:02 POC Glucose 221 mg/dL (70-110) H 04/29/23 21:37 Estimat Average Glucose 212 04/29/23 06:20 Hemoglobin A1c 9.0 % (4.0-6.0) H 04/29/23 06:20 Calculated Osmolality 285 mOsm/kg (285-295) 04/30/23 05:02 Calcium 8.6 mg/dL (8.5-10.5) 04/30/23 05:02 Magnesium 1.6 mg/dL (1.7-2.3) L 04/30/23 05:02 Total Bilirubin 1.8 mg/dL (0.15-1.2) H 04/30/23 05:02 AST 31 U/L (0-40) 04/30/23 05:02 ALT 71 U/L (0-41) H 04/30/23 05:02 Alkaline Phosphatase 82 U/L (40-130) 04/30/23 05:02 Troponin T Baseline 16 ng/L (0-15) H 04/29/23 06:20 Troponin T 120 Minute 13.80 ng/L (0-15) 04/29/23 08:10 Delta Troponin T -2.20 ABS# (0-10) L 04/29/23 08:10 Troponin T Hi Sens 6Hr 12.63 ng/L (0-15) 04/29/23 12:10 Troponin T Hi Sens 6Hr Delta -3.37 ng/L (0-12) L 04/29/23 12:10 Total Protein 6.0 g/dL (6.6-8.7) L 04/30/23 05:02 Albumin 3.6 g/dL (3.5-5.2) 04/30/23 05:02 Globulin 2.4 g/dL (1.3-4.6) 04/30/23 05:02 A&P Assessment and plan (1) Unstable angina pectoris: Patient chest pain may suggest unstable angina. The EKG changes are nonspecific. No evidence of myocardial injury. We will continue on the current medications. For further evaluation of his coronary status, the patient may benefit from a cardiac catheterization. This was discussed with the patient in detail. Patient is wanting to go ahead with the procedure. (2) Hyperlipidemia: May continue on the current medications. Qualifiers: Hyperlipidemia type: mixed hyperlipidemia Qualified Code(s): E78.2 - Mixed hyperlipidemia (3) Atherosclerotic heart disease: Patient had a BUSCH to the LAD and a venous graft to the diagonal. Based on the angiogram findings, further recommendations will be made (4) Uncontrolled diabetes mellitus: Aggressive management of the diabetes would be appropriate. Patient has a history of diabetic neuropathy and nonhealing foot ulcers (5) Benign essential HTN: Currently the blood pressures are stage II. We will try to optimize the antihypertensive medications. Plan Other problems are Extensive psoriatic skin lesions Cervical lymph node enlargement History of alcohol abuse Fine tremor Diabetic neuropathy History of diabetic foot ulcers History of osteomyelitis Noncompliance to medical treatment and follow-up Patient is scheduled for the cardiac catheterization today. The risk of bleedi ng, hematoma, vascular injury, myocardial infarction, CVA and other concomitant complications were explained to the patient in detail. Patient understood this well and consented to proceed. He is scheduled to have the angiogram this morning. Based on the results further recommendations will be made Attestations Medical Necessity Statement*: Patient may require at least 1 more midnight stay for further evaluation management Coding Level of Care Code 47073 Diagnoses Unstable angina pectoris I20.0 Hyperlipidemia E78.2 Hyperlipidemia type: mixed hyperlipidemia Atherosclerotic heart disease I25.10 Uncontrolled diabetes mellitus Benign essential HTN I10
--- NOTE | 2023-04-30 07:01 | W.PM.OPSUD ---
Surgery/Procedure H&P Update DATE OF PROCEDURE: April 30, 2023 DATE H&P PERFORMED: 04/29/23 H&P UPDATE INFORMATION: I have reviewed H&P completed within last 30 days, I have examined patient prior to procedure and No changes to prior documentation PREOP DIAGNOSIS: ASHD PRIMARY INDICATION FOR PROCEDURE: Unstable angina, history of two-vessel coronary artery bypass surgery in 2007 PLANNED PROCEDURE: Operation Date: 04/30/23 10:00 Proposed Procedures p Cardiac Catheterization(Left) - Reyna Mcintosh MD PATIENT REASSESSED PRIOR TO SEDATION, WITH NO CHANGE NOTED: Yes PHYSICAL EXAM: alert, oriented x 3, clear to auscultation bilaterally and regular rate & rhythm AIRWAY EVAL/ANESTHESIA PLAN: normal airway, see other exam findings, ASA III, Monitored Anesthesia, Local Anesthesia, Risks, benefits & alternatives of sedation and/or procedure discussed and Patient agrees to continue as planned
--- NOTE | 2023-04-30 07:29 | PC.NURSE ---
Patient off unit to quality assurance lab technician.
[2023-04-30] MEDS: thiamine 100 mg Tablet PO (09:29)
[2023-04-30] MEDS: multivitamin therapeutic Tablet 1 TAB PO (09:29)
[2023-04-30] MEDS: isosorbide mononitrate ER 30 mg Tablet PO (09:29)
[2023-04-30] MEDS: metoprolol tartrate 50 mg Tablet PO ×2 (09:30→20:57)
[2023-04-30] MEDS: insulin lispro 100 unit/1 mL SUBCUT ×3 (09:31→17:35)
[2023-04-30] MEDS: folic acid 1 mg Tablet PO (09:31)
[2023-04-30] MEDS: magnesium sulfate premix 2 GM/50 ML PIGGYBACK IV (09:31)
[2023-04-30] MEDS: aspirin 81 mg EC Tablet PO (09:32)
[2023-04-30] MEDS: hyDRALAzine 20 mg/mL INJ 1 mL 15 MG IVP (10:46)
--- NOTE | 2023-04-30 11:02 | PC.CHAP ---
Pastoral Care Encounter/Spiritual Assessment Type of Contact [] Declined combatant diver officer visit [] Patient/Family/Request visit [] Outpatient visit [] Follow-up visit [] Physician referral [] Code/Alert [x] Routine visit [] Staff referral [] Actively dying [] Patient sleeping [] Family support [] [] Out of room [] Palliative care [] [] Receiving care in room [] Pre-surgical visit [] Trauma [] Long length of stay [] ICU visit [] Other: Relational/Emotional Strength [] Patient feels connected with others/family/visitors/staff [] Distress [] Loneliness/isolation [] Abandonment Spirituality of Patient [] Person of Catherine [] Attends Temple of their Catherine [] Believes in Prayer [] Reads Bible or Yazidism materials [] There are Spiritual issues to be addressed Optics Technical Officer Interventions [x] Prayer [x] Active listening [] Non-anxious presence [] Spiritual/emotional support [] Crisis/trauma care [] Spiritual counseling [] Bereavement support [] Provided bereavement packet [] Provided Bible/devotional materials [] Provided toy/stuffed animal, coloring book to patient or family member [] Provided Communion [] Anointing/[place] [] Salvation [] Completed spiritual assessment [] Other: Impact on Illness or Injury [] Angry [] Fearful [] Anxious [] Often cries [] Exhaustion [] Unable to work [] Unable to attend hindu [] Unable to walk/stand [] Unable to read [] Unable to drive [] Unable to eat/drink [] Unable to sleep [] Unable to be with family [] Patient intubated [] Other: Summary Time spent with patient 10
[2023-04-30 11:05] LABS: Glucose Point of Care 179 mg/dL (70-110)
--- NOTE | 2023-04-30 12:23 | PC.NURSE ---
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 Sheath is pulled at 0947. Bleeding control is gained at [address] Mcintosh. Manual pressure is held x 20 minutes. A arguello is placed during this due to a full bladder. A verbal order for 15mg of hydralazine is given by Dr. Mcintosh for his elevated blood pressure is given also. A pressure dressing and a 5 lb sandbag is placed per Dr. Mcintosh.
--- NOTE | 2023-04-30 13:09 | PM.PN ---
Subjective Subjective: Reports he still having little bit of pain but it is a lot better than on admission. He underwent angiogram today. This demonstrated some coronary disease but nothing amenable to treatment. It was recommended that he be medically managed. Please see cath report from today. Medications: Reviewed: Yes Vitals/I&O/Wt Last Vital Signs Temp 97.9 F 04/30/23 11:27 Pulse 72 04/30/23 11:27 Resp 16 04/30/23 11:27 BP 120/65 04/30/23 11:27 Pulse Ox 96 04/30/23 11:27 O2 Del Method Room Air 04/30/23 11:27 04/29/23 04/30/23 04/30/23 22:59 06:59 14:59 Intake Total 314.5 / 314.5 20.625 / 335.125 72.1 / 72.1 Output Total 280 / 280 Balance 314.5 / 314.5 20.625 / 335.125 -207.9 / -207.9 Weight last 48 hrs Weight 86.183 kg Physical Exam Narrative: General exam demonstrates a white male no distress Neck is supple no thyromegaly. Probable 2 cm node left anterior cervical chain Cardiovascular regular rate and rhythm, no murmur Lungs clear no wheezing or crackles Abdomen is soft. Hernia noted left lower quadrant. Easily reducible Extremities no cyanosis clubbing or edema, cap refill brisk Data 04/30/23 05:02 04/30/23 05:02 A&P Assessment and plan (1) Chest pain: Patient presents with chest discomfort that is concerning for coronary artery disease. He has past history of coronary artery disease with bypass grafting in 2006 and stenting prior to this. He has been noncompliant with his treatment for coronary artery disease, aspirin, statin, blood pressure medication, diabetic medication Continue aspirin, add statin, initiate beta-charles Cardiology consultation appreciated. Angiogram was performed today. This demonstrated some disease, but nothing amenable to therapy. Echocardiogram demonstrated EF around 50% Discontinue nitroglycerin drip Imdur initiated Possible discharge tomorrow. (2) CAD (coronary artery disease): See above (3) Uncontrolled diabetes mellitus: Consistent carb diet Sliding scale insulin A1c elevated consistent with poor control. Consider initiation of metformin at discharge after appropriate time following angiogram (4) Hyperlipidemia: Continue e atorvastatin Qualifiers: Hyperlipidemia type: mixed hyperlipidemia Qualified Code(s): E78.2 - Mixed hyperlipidemia (5) History of alcoholism: [facility] protocol Monitor for withdrawal. No obvious withdrawal currently Plan Other medical problems as listed in his past medical history Full code currently Holding Lovenox following procedure. Reinitiate tomorrow if patient needs continued hospitalization Significant concern in this patient with chest pain, equivocal EKG changes, initial elevated troponin, placed on a nitroglycerin drip with need for close monitoring. Attestations Medical Necessity Statement*: Needs continued hospitalization for close monitoring following angiogram for chest discomfort. Possible discharge tomorrow. Diagnoses Chest pain R07.9 CAD (coronary artery disease) I25.10 Uncontrolled diabetes mellitus Hyperlipidemia E78.2 Hyperlipidemia type: mixed hyperlipidemia History of alcoholism F10.21 Time Spent (min) 29
[2023-04-30 16:13] LABS: Glucose Point of Care 234 mg/dL (70-110)
[2023-04-30] MEDS: acetaminophen 325 mg Tablet 650 MG PO (17:35)
[2023-04-30] MEDS: atorvastatin 40 mg Tablet PO (20:57)
[2023-04-30 21:07] LABS: Glucose Point of Care 231 mg/dL (70-110)
[2023-05-01] VITALS: BP 125/73; PULSE 71; RESP 19; TEMP 36.8; O2SAT 96
[2023-05-01 04:00] VITALS: BP 155/59; PULSE 72; RESP 18; TEMP 36.8; O2SAT 94
[2023-05-01 05:19] LABS: Basophils % 0.3 %; Eosinophils # 0.3 10^3/uL (0.0-0.8); Eosinophils % 2.7 %; Lymphocytes # 1.2 10^3/uL (0.8-4.8); Lymphocytes % 10.7 %; Mean Corpuscular HGB Conc 34.2 g/dL (30-55); Mean Corpuscular Hemoglobin 30.1 pg (27-33); Mean Corpuscular Volume 88.1 fl (82-101); Mean Platelet Volume 10.2 fL (7.4-10.4); Monocytes # 0.9 10^3/uL (0.2-0.9); Monocytes % 8.3 %; Neutrophils # 8.26 10^3/uL (1.8-7.7); Neutrophils % 76.9 %; Nucleated Red Blood Cells % 0 %; Platelet Count 199 10^3/cmm (157-399); Red Blood Count 4.88 10^6/uL (3.85-5.65); Red Cell Distribution Width 12.2 % (12.1-15.1); White Blood Count 10.74 10^3/uL (3.29-11.43)
[2023-05-01 05:41] LABS: Alanine Aminotransferase 50 U/L (0-41); Albumin Level 3.5 g/dL (3.5-5.2); Alkaline Phosphatase 85 U/L (40-130); Anion Gap 14.1 (5-19); Aspartate Amino Transferase 16 U/L (0-40); Blood Urea Nitrogen 9 mg/dL (8-23); Calcium 8.7 mg/dL (8.5-10.5); Carbon Dioxide 24 mmol/L (22-29); Chloride 99 mmol/L (98-107); Globulin 2.5 g/dL (1.3-4.6); Glomerular Filtration Rate 167.4 mL/min (90-130); Glucose 196 mg/dL (65-115); Osmolality Calculated 280 mOsm/kg (285-295); Potassium 4.1 mmol/L (3.5-5.1); Sodium 133 mmol/L (136-145); Total Bilirubin 2.5 mg/dL (0.15-1.2)
[2023-05-01 05:47] VITALS: PULSE 68
[2023-05-01 06:48] LABS: Glucose Point of Care 191 mg/dL (70-110)
--- NOTE | 2023-05-01 07:21 | PM.DCS ---
Discharge Providers Date of Admission: 04/29/23 08:20 Date of Discharge: May 01, 2023 Attending Provider at Admission: Joey Pastrana MD Attending Provider at Discharge: Joey Pastrana MD Primary Care Provider: Isabella Rogers MD Diagnoses at Discharge Discharge Diagnosis (1) Chest pain: Status: Acute (2) CAD (coronary artery disease): Status: Acute (3) Uncontrolled diabetes mellitus: Status: Acute (4) Hyperlipidemia: Status: Acute Qualifiers: Hyperlipidemia type: mixed hyperlipidemia Qualified Code(s): E78.2 - Mixed hyperlipidemia (5) History of alcoholism: Status: Acute Reason for Visit Reason for Visit: chest pain Hospital Course Hospital Course Hudson is a 62-year-old white male with history of coronary disease who presented to the emergency department with complaints of chest discomfort. EKG demonstrated some equivocal changes. Initial troponin elevated but did not show a concerning change. Enlarged lymph nodes were felt in his left neck on exam. Oropharynx exam appeared grossly normal. He was admitted with concerns of chest pain. Cardiology was consulted and echocardiogram obtained. Echo showed normal EF and some diffuse hypokinesia of the septum and anteroseptal segments. Cardiology believed angiogram was needed and this was performed April 30. This demonstrated some significant coronary disease, but nothing amenable to intervention. Aggressive medical management was recommended. Full report from angiogram is pending at time of dictation. Nitrates were added to his regimen. Beta-charles, statin, aspirin was initiated. In regards to his enlarged lymph node a CTA of his chest was performed demonstrating on sending some small mediastinal lymph nodes. Hypervascular lymph nodes were noted in the neck, more predominantly on the left and a thyroid mass was also noted on thyroid ultrasound. Thyroid malignancy was not excluded. I discussed this with the patient and we will refer him for ENT evaluation. He also has a hoarse voice, but no dysphagia. I spoke with ENT regarding the referral, and described the great importance to the patient of keeping the appointment. I counseled him not to smoke, not to drink alcohol, and to keep all follow-ups. I day of discharge he was able to ask questions, and agreed with the plan. Right groin, angiogram site, did not demonstrate any concerns. Physical Exam Narrative: General exam no distress Neck is supple Cardiovascular regular rate and rhythm Lungs clear Abdomen is soft Right groin with small amount of bruising but no significant hematoma Extremities no cyanosis clubbing or edema Urinary Catheter Management: Murillo: Cath Placed During This Visit: yes Urinary Catheter Date of Insertion: 04/30/23 Urinary Catheter Time of Insertion: 10:00 Discharge Data Studies Completed and Pending Completed Studies During Hospitalization Category Date Time Status CT neck w con* [id number] Routine Cat Scan 04/29/23 09:45 Completed CTA chest [CT angio chest PE protcl 13351] Routine Cat Scan 04/29/23 09:46 Completed XR chest 1V portable [id number] Stat Exams 04/29/23 05:58 Completed CV. echo complete* [id number] Routine Ultrasound 04/29/23 08:35 [place] thyroid 89002 Routine Ultrasound 04/29/23 11:58 Completed Pending at discharge Category Date Time Status [facility] request for service Routine Exams 04/30/23 05:09 Taken Radiology Impressions Chest X-Ray 04/29/23 05:58 IMPRESSION: No acute cardiopulmonary disease. Laboratory Results WBC 10.74 10^3/uL (3.29-11.43) 05/01/23 05:14 Corrected WBC Cancelled 04/29/23 05:57 RBC 4.88 10^6/uL (3.85-5.65) 05/01/23 05:14 Hgb 14.70 g/dL (11.27-16.99) 05/01/23 05:14 Hct 43.0 % (37-53) 05/01/23 05:14 MCV 88.1 fl (82-101) 05/01/23 05:14 MCH 30.1 pg (27-33) 05/01/23 05:14 MCHC 34.2 g/dL (30-55) 05/01/23 05:14 RDW 12.2 % (12.1-15.1) 05/01/23 05:14 Plt Count 199 10^3/cmm (157-399) 05/01/23 05:14 MPV 10.2 fL (7.4-10.4) 05/01/23 05:14 Gran % Cancelled 04/29/23 05:57 Neut % (Auto) 76.9 % 05/01/23 05:14 Lymph % (Auto) 10.7 % 05/01/23 05:14 [place] % (Auto) 8.3 % 05/01/23 05:14 Eos % (Auto) 2.7 % 05/01/23 05:14 Baso % (Auto) 0.3 % 05/01/23 05:14 Neut # (Auto) 8.26 10^3/uL (1.8-7.7) H 05/01/23 05:14 Lymph # (Auto) 1.2 10^3/uL (0.8-4.8) 05/01/23 05:14 [place] # (Auto) 0.9 10^3/uL (0.2-0.9) 05/01/23 05:14 Eos # (Auto) 0.3 10^3/uL (0.0-0.8) 05/01/23 05:14 Baso # (Auto) 0.0 10^3/uL (0.0-0.1) 05/01/23 05:14 Absolute Gran (auto) Cancelled 04/29/23 05:57 Nucleated RBC % (auto) 0 % 05/01/23 05:14 Nucleated RBCs # 0.0 /100WBC 05/01/23 05:14 Sodium 133 mmol/L (136-145) L 05/01/23 05:14 Potassium 4.1 mmol/L (3.5-5.1) 05/01/23 05:14 Chloride 99 mmol/L (98-107) 05/01/23 05:14 Carbon Dioxide 24 mmol/L (22-29) 05/01/23 05:14 Anion Gap 14.1 (5-19) 05/01/23 05:14 BUN 9 mg/dL (8-23) 05/01/23 05:14 Creatinine 0.5 mg/dL (0.7-1.2) L 05/01/23 05:14 GFR Calculation 167.4 mL/min (90-130) H 05/01/23 05:14 Glucose 196 mg/dL (65-115) H 05/01/23 05:14 POC Glucose 191 mg/dL (70-110) H 05/01/23 06:35 Estimat Average Glucose 212 04/29/23 06:20 Hemoglobin A1c 9.0 % (4.0-6.0) H 04/29/23 06:20 Calculated Osmolality 280 mOsm/kg (285-295) L 05/01/23 05:14 Calcium 8.7 mg/dL (8.5-10.5) 05/01/23 05:14 Magnesium 1.6 mg/dL (1.7-2.3) L 04/30/23 05:02 Total Bilirubin 2.5 mg/dL (0.15-1.2) H 05/01/23 05:14 AST 16 U/L (0-40) 05/01/23 05:14 ALT 50 U/L (0-41) H 05/01/23 05:14 Alkaline Phosphatase 85 U/L (40-130) 05/01/23 05:14 Troponin T Baseline 16 ng/L (0-15) H 04/29/23 06:20 Troponin T 120 Minute 13.80 ng/L (0-15) 04/29/23 08:10 Delta Troponin T -2.20 ABS# (0-10) L 04/29/23 08:10 Troponin T Hi Sens 6Hr 12.63 ng/L (0-15) 04/29/23 12:10 Troponin T Hi Sens 6Hr Delta -3.37 ng/L (0-12) L 04/29/23 12:10 Total Protein 6.0 g/dL (6.6-8.7) L 05/01/23 05:14 Albumin 3.5 g/dL (3.5-5.2) 05/01/23 05:14 Globulin 2.5 g/dL (1.3-4.6) 05/01/23 05:14 Vitals Last Vital Signs Temp 98.2 F 05/01/23 04:00 Pulse 68 05/01/23 05:47 Resp 18 05/01/23 04:00 BP 155/59 05/01/23 04:00 Pulse Ox 94 05/01/23 04:00 O2 Del Method Room Air 05/01/23 04:00 Discharge Plan Discharge Condition: Stable Prescriptions: New atorvastatin 40 mg Tablet 40 mg PO BEDTIME Qty: 30 0RF folic acid 1 mg Tablet 1 mg PO DAILY Qty: 30 0RF metformin 500 mg tablet 500 mg PO BID Qty: 60 0RF Rx Instructions: do not start until 05/03 isosorbide mononitrate 30 mg Tablet Extended Release 24 Hr 30 mg PO DAILY Qty: 30 0RF pantoprazole 40 mg Tablet,Delayed Release (Dr/Ec) 40 mg PO DAILY Qty: 30 0RF metoprolol tartrate 50 mg Tablet 50 mg PO BID@0900,2100 Qty: 60 0RF Vitamin B-1 (mononitrate) 100 mg Tablet 100 mg PO DAILY Qty: 30 0RF Continued aspirin 81 mg tablet,delayed release (DR/EC) 81 mg PO EVERY OTHER DAY No Action (DME) Diabetic shoes with 3 sets of insoles See Rx Instructions .Route .MEDSUPPLY Qty: 1 0RF Rx Instructions: As directed by HOME (DME) OrthoWedge heel shoe to Left and Right Foot See Rx Instructions .Route .MEDSUPPLY Qty: 1 0RF Rx Instructions: As directed [employer] (DME) pen needle, diabetic [BD Ultra-Fine Micro Pen Needle] 32 gauge x 1/4 needle See Rx Instructions .ROUTE .MEDSUPPLY Qty: 50 0RF Rx Instructions: As directed (DME) blood-glucose meter [[employer] Glucose Monitoring] Kit See Rx Instructions .Route Qty: 1 0RF Rx Instructions: As directed Discharge Orders: Discharge Order (Routine); Ordered 05/01/23 Ordered By: Joey Pastrana Referrals: Beau Santana MD [Physician] - 1 week (follow up cervical LAD, thyroid mass) Marilee Cheung FNP [Nurse Practitioner] - 1 week (follow up angiogram) Isabella Rogers MD [Primary Care Provider] - 4-7 days Discharge Diet: Usual diet Discharge Activity: Resume usual activity Patient Instructions: Metoprolol (By mouth) (Lopressor, Toprol XL), Thiamine (By mouth) ([facility] Vitamin B1, Nature's..., Folic Acid (By mouth) (FA-8, [place], Folacin-800, Methylfolate), Isosorbide Mononitrate (By mouth) (Imdur, Imdur ER, Ismo), Metformin (By mouth) (Glucophage, Glucophage XR, Fortamet,..., Atorvastatin (By mouth) (Lipitor, Atorvaliq), Pantoprazole (By mouth) (Protonix), Opioid Safety, Pain Management Activity Restrictions/Additional Instructions: Take all medicine as prescribed Follow-up with primary care provider in 3 to 5 days, cardiology 1 week, ENT 1 week Make sure you keep ENT follow-up. They are discussing your thyroid mass and abnormal lymph nodes in your neck. Do not start your metformin until May 03. Discharge Attestations Time Spent in Discharge Care*: greater than 30 min Status at Discharge: Cognitive status at discharge: cognitively intact, Behavioral status at discharge: cooperative, Quality Metrics Clinical Quality Measures [ No reported AMI, CVA or VTE this stay] Coding Level of Care Code 92267 Total time (in minutes) for Discharge: 35 Diagnoses Chest pain R07.9 CAD (coronary artery disease) I25.10 Uncontrolled diabetes mellitus Hyperlipidemia E78.2 Hyperlipidemia type: mixed hyperlipidemia History of alcoholism F10.21
[2023-05-01 08:00] VITALS: BP 138/79; PULSE 74; RESP 18; TEMP 36.6; O2SAT 96
[2023-05-01] MEDS: folic acid 1 mg Tablet PO (09:03)
[2023-05-01] MEDS: insulin lispro 100 unit/1 mL SUBCUT (09:03)
[2023-05-01] MEDS: multivitamin therapeutic Tablet 1 TAB PO (09:03)
[2023-05-01] MEDS: metoprolol tartrate 50 mg Tablet PO (09:03)
[2023-05-01] MEDS: aspirin 81 mg EC Tablet PO (09:03)
[2023-05-01] MEDS: thiamine 100 mg Tablet PO (09:03)
[2023-05-01] MEDS: pantoprazole DR 40 mg Tablet PO (09:03)
[2023-05-01] MEDS: isosorbide mononitrate ER 30 mg Tablet PO (09:04)
--- NOTE | 2023-05-01 09:44 | PC.NURSE ---
This nurse as well as the patient has been trying to contact his neighbor to transport him home upon d/c. However, we have been unsuccessful at reaching Tessa. Pt asked for transport home at which time [facility]ail in was contacted. D/C awaiting transport.
--- NOTE | 2023-05-01 09:57 | P.PN_ITS ---
Subjective Subjective: Patient had a cardiac catheterization yesterday. He was found to have occluded venous graft to the diagonal. The PDA branch was found to have a high-grade lesion. The distal LAD also was found to have moderate to severe diffuse disease. Since these vessels were found to be relatively small caliber, it was opted to optimize medical treatment. Patient has not had any chest pain since yesterday. The vital signs remained stable. No new symptoms. Had some bleeding from the right groin, while pulling out the arterial sheath. He has some ecchymosis with no hematoma Medications: Medication Review Details: Current Medications Acetaminophen (Acetaminophen 325 Mg Tablet) 650 mg PO Q6H PRN PRN Reason: Mild/Mod Pain Or Temp >/= 101 Last Admin: 04/30/23 17:35 Dose: 650 mg Al Hydrox/Mg Hydrox/Simethicone (Wtzq-Hfu-Lrfyragur-Phan 30 Ml Udc) 30 ml PO Q15M PRN PRN Reason: INDIGESTION Aspirin (Aspirin 81 Mg Ec Tablet) 81 mg PO DAILY [facility] Last Admin: 05/01/23 09:03 Dose: 81 mg Atorvastatin Calcium (Atorvastatin 40 Mg Tablet) 40 mg PO BEDTIME [facility] Last Admin: 04/30/23 20:57 Dose: 40 mg Atropine Sulfate (Atropine 1 Mg/Ml Sdv 1 Ml) 0.5 mg IVP PRN PRN PRN Reason: Symptomatic bradycardia Dextrose (Dextrose 50% Syringe 50 Ml) 50 ml IVP PRN PRN; Protocol PRN Reason: hypoglycemia protocol Dextrose (Dextrose 50% Syringe 50 Ml) 25 ml IVP ONCE PRN; Protocol PRN Reason: hypoglycemia protocol Folic Acid (Folic Acid 1 Mg Tablet) 1 mg PO DAILY [facility] Last Admin: 05/01/23 09:03 Dose: 1 mg Glucagon (Glucagon 1 Mg/Ml Inj 1 Ml) 1 mg IM ONCE PRN; Protocol PRN Reason: Adult Acute Hypoglycemia Prot. Sodium Chloride (Sodium Chloride 0.9%) 1,000 mls @ 50 mls/hr IV .Q20H [facility] Last Admin: 05/01/23 02:01 Dose: Not Given Dextrose (D5w) 500 mls @ 100 mls/hr IV ONCE PRN; Protocol PRN Reason: Adult Acute Hypoglycemia Prot Insulin Human Lispro (Insulin Lispro 100 Unit/1 Ml) 0 unit SUBCUT TIDWM [facility]; Protocol Last Admin: 05/01/23 09:03 Dose: 4 unit Isosorbide Mononitrate (Isosorbide Mononitrate Er 30 Mg Tablet) 30 mg PO DAILY [facility] Last Admin: 05/01/23 09:04 Dose: 30 mg Lorazepam (Lorazepam 2 Mg Tablet) 2 mg PO Q4H PRN; Protocol PRN Reason: WITHDRAWAL Lorazepam (Lorazepam 2 Mg/Ml Inj 1 Ml) 2 mg IVP PRN PRN; Protocol PRN Reason: WITHDRAWAL Lorazepam (Lorazepam 2 Mg/Ml Inj 1 Ml) 2 mg IM Q4H PRN; Protocol PRN Reason: ALCOWD Magnesium Hydroxide (Magnesium Hydroxide 30 Ml Udc) 30 ml PO DAILY PRN PRN Reason: CONSTIPATION Metoprolol Tartrate (Metoprolol Tartrate 50 Mg Tablet) 50 mg PO BID@0900,2100 [facility] Last Admin: 05/01/23 09:03 Dose: 50 mg Morphine Sulfate (Morphine 4 Mg/Ml Sdv 1 Ml) 2 mg IVP Q4H PRN PRN Reason: SEVERE PAIN Multivitamins Therapeutic (Multivitamin Therapeutic Tablet) 1 tab PO DAILY [facility] Last Admin: 05/01/23 09:03 Dose: 1 tab Naloxone HCl (Naloxone 0.4 Mg/Ml Sdv) 0.1 mg IVP Q2M PRN PRN Reason: RESPIRATORY RATE < 8/MIN Nitroglycerin (Nitroglycerin 0.4 Mg Sublingual Tablet) 0.4 mg SUBLINGUAL Q5M PRN PRN Reason: CHEST PAIN Ondansetron HCl (Ondansetron 2 Mg/Ml Sdv 2 Ml) 4 mg IVP Q8H PRN PRN Reason: vomiting, or N/V if npo Pantoprazole Sodium (Pantoprazole Dr 40 Mg Tablet) 40 mg PO DAILY [facility] Last Admin: 05/01/23 09:03 Dose: 40 mg Thiamine Mononitrate (Thiamine 100 Mg Tablet) 100 mg PO DAILY [facility] Last Admin: 05/01/23 09:03 Dose: 100 mg Vitals/I&O/Wt Last Vital Signs Temp 97.9 F 05/01/23 08:00 Pulse 74 05/01/23 08:00 Resp 18 05/01/23 08:00 BP 138/79 05/01/23 08:00 Pulse Ox 96 05/01/23 08:00 O2 Del Method Room Air 05/01/23 08:00 04/30/23 05/01/23 05/01/23 22:59 06:59 14:59 Intake Total 686.667 / 958.767 660 / 1618.767 240 / 240 Output Total 740 / 1870 225 / 225 Balance 686.667 / -171.233 -80 / -251.233 15 Physical Exam Narrative: GENERAL: The patient is alert and oriented times three. Not in any acute distress. HEENT: No significant pallor, icterus or lymphadenopathy.Oral cavity: There are no mucous membrane lesions. NECK: Trachea appears to be central. No masses noted. No JVD or thyromegaly appreciated. RESPIRATORY: Chest is symmetrical. No intercostals muscle retraction or any accessory muscle activation. There is no chest wall tenderness. Breath sounds are heard bilaterally. No rales or rhonchi heard. No evidence of any consolidation. BREASTS: Deferred. HEART: The heart sounds are normal. No S3 or S4. No significant murmurs. No pericardial rub ABDOMEN: No vessel pulsations or distention. No tenderness. No organomegaly appreciated. Bowel sounds are normally heard. : Deferred. RECTAL: Deferred. LYMPHATIC: No lymphadenopathy noted in the neck. EXTREMITIES: Ecchymosis in the right groin with no hematoma. Good distal pulses. MUSCULOSKELETAL: No acute joint deformities or swelling SKIN: Generalized exfoliation and erythema NEUROPSYCHIATRIC: The patient is alert and oriented x3. Appears to be in a good mood. No tremors or rigidity noted. Urinary Catheter Management: Murillo: Cath Placed During This Visit: yes, but has since been removed by the nurse Reason for Continuing Indwelling Catheter: Decision to DC Catheter Urinary Catheter Date of Insertion: 04/30/23 Urinary Catheter Time of Insertion: 10:00 Date Urinary Catheter Removed: 05/01/23 Time Urinary Catheter Discontinued: 07:45 Data 05/01/23 05:14 05/01/23 05:14 Other Labs: Laboratory Last Values WBC 10.74 10^3/uL (3.29-11.43) 05/01/23 05:14 Corrected WBC Cancelled 04/29/23 05:57 RBC 4.88 10^6/uL (3.85-5.65) 05/01/23 05:14 Hgb 14.70 g/dL (11.27-16.99) 05/01/23 05:14 Hct 43.0 % (37-53) 05/01/23 05:14 MCV 88.1 fl (82-101) 05/01/23 05:14 MCH 30.1 pg (27-33) 05/01/23 05:14 MCHC 34.2 g/dL (30-55) 05/01/23 05:14 RDW 12.2 % (12.1-15.1) 05/01/23 05:14 Plt Count 199 10^3/cmm (157-399) 05/01/23 05:14 MPV 10.2 fL (7.4-10.4) 05/01/23 05:14 Gran % Cancelled 04/29/23 05:57 Neut % (Auto) 76.9 % 05/01/23 05:14 Lymph % (Auto) 10.7 % 05/01/23 05:14 [place] % (Auto) 8.3 % 05/01/23 05:14 Eos % (Auto) 2.7 % 05/01/23 05:14 Baso % (Auto) 0.3 % 05/01/23 05:14 Neut # (Auto) 8.26 10^3/uL (1.8-7.7) H 05/01/23 05:14 Lymph # (Auto) 1.2 10^3/uL (0.8-4.8) 05/01/23 05:14 [place] # (Auto) 0.9 10^3/uL (0.2-0.9) 05/01/23 05:14 Eos # (Auto) 0.3 10^3/uL (0.0-0.8) 05/01/23 05:14 Baso # (Auto) 0.0 10^3/uL (0.0-0.1) 05/01/23 05:14 Absolute Gran (auto) Cancelled 04/29/23 05:57 Nucleated RBC % (auto) 0 % 05/01/23 05:14 Nucleated RBCs # 0.0 /100WBC 05/01/23 05:14 Sodium 133 mmol/L (136-145) L 05/01/23 05:14 Potassium 4.1 mmol/L (3.5-5.1) 05/01/23 05:14 Chloride 99 mmol/L (98-107) 05/01/23 05:14 Carbon Dioxide 24 mmol/L (22-29) 05/01/23 05:14 Anion Gap 14.1 (5-19) 05/01/23 05:14 BUN 9 mg/dL (8-23) 05/01/23 05:14 Creatinine 0.5 mg/dL (0.7-1.2) L 05/01/23 05:14 GFR Calculation 167.4 mL/min (90-130) H 05/01/23 05:14 Glucose 196 mg/dL (65-115) H 05/01/23 05:14 POC Glucose 191 mg/dL (70-110) H 05/01/23 06:35 Estimat Average Glucose 212 04/29/23 06:20 Hemoglobin A1c 9.0 % (4.0-6.0) H 04/29/23 06:20 Calculated Osmolality 280 mOsm/kg (285-295) L 05/01/23 05:14 Calcium 8.7 mg/dL (8.5-10.5) 05/01/23 05:14 Magnesium 1.6 mg/dL (1.7-2.3) L 04/30/23 05:02 Total Bilirubin 2.5 mg/dL (0.15-1.2) H 05/01/23 05:14 AST 16 U/L (0-40) 05/01/23 05:14 ALT 50 U/L (0-41) H 05/01/23 05:14 Alkaline Phosphatase 85 U/L (40-130) 05/01/23 05:14 Troponin T Baseline 16 ng/L (0-15) H 04/29/23 06:20 Troponin T 120 Minute 13.80 ng/L (0-15) 04/29/23 08:10 Delta Troponin T -2.20 ABS# (0-10) L 04/29/23 08:10 Troponin T Hi Sens 6Hr 12.63 ng/L (0-15) 04/29/23 12:10 Troponin T Hi Sens 6Hr Delta -3.37 ng/L (0-12) L 04/29/23 12:10 Total Protein 6.0 g/dL (6.6-8.7) L 05/01/23 05:14 Albumin 3.5 g/dL (3.5-5.2) 05/01/23 05:14 Globulin 2.5 g/dL (1.3-4.6) 05/01/23 05:14 A&P Assessment and plan (1) Unstable angina pectoris: The chest pain is resolved. May continue on the current medications May be appropriate to Treat with Plavix for 3 months. (2) Hyperlipidemia: May continue on the current medications. Qualifiers: Hyperlipidemia type: mixed hyperlipidemia Qualified Code(s): E78.2 - Mixed hyperlipidemia (3) Atherosclerotic heart disease: The angiogram yesterday revealed patent BUSCH to the LAD. The venous graft to th e diagonal is occluded. High-grade lesions in the ostium of the small PDA and moderate to severe disease in the distal LAD, a small caliber vessel. It was opted to treat medically. (4) Uncontrolled diabetes mellitus: The blood sugar seems to be getting under control. Management as per the primary (5) Benign essential HTN: The blood pressure seems to be getting under control. May continue on the current medications. Plan Other problems are Extensive psoriatic skin lesions Cervical lymph node enlargement History of alcohol abuse Fine tremor Diabetic neuropathy History of diabetic foot ulcers History of osteomyelitis Noncompliance to medical treatment and follow-up If the patient continues to remain stable, may be discharged home from a cardiac standpoint. Will be seen in the clinic in a week by the nurse practitioner. Attestations Medical Necessity Statement*: Disposition as per the primary Coding Level of Care Code 36156 Diagnoses Unstable angina pectoris I20.0 Hyperlipidemia E78.2 Hyperlipidemia type: mixed hyperlipidemia Atherosclerotic heart disease I25.10 Uncontrolled diabetes mellitus Benign essential HTN I10
== END 2023-05-01 11:35 | disposition home or self-care (01) ==
LOC: ER 07:36 → CSU 18:22
PROVIDERS: Internal Medicine Cardiovascular Disease; Admitting Provider Internal Medicine; Emergency Provider Family Medicine; PCP Family Medicine; Visit Provider Internal Medicine
DX: I25.118 Atherosclerotic heart disease of native coronary artery with other forms of angina pectoris (principal); R07.89 Other chest pain; E78.2 Mixed hyperlipidemia; F10.21 Alcohol dependence, in remission; R59.1 Generalized enlarged lymph nodes; I10 Essential (primary) hypertension; Z79.4 Long term (current) use of insulin; E11.40 Type 2 diabetes mellitus with diabetic neuropathy, unspecified; Z87.891 Personal history of nicotine dependence; Z95.1 Presence of aortocoronary bypass graft; Z95.5 Presence of coronary angioplasty implant and graft; Z91.199 Patient's noncompliance with other medical treatment and regimen due to unspecified reason; I27.20 Pulmonary hypertension, unspecified; I34.81 Nonrheumatic mitral (valve) annulus calcification
CPT/HCPCS: 36415; 36416; 70491; 71045; 71275; 76536; 80053; 82962; 83036; 83735; 84484; 85025; 93005; 93306; 93459; 96361; 96365; 96372; 96374; 96375; 99152; 99153; 99285; C1769; C1887; C1894; G0378; J0360; J1644; J1650; J1815; J2250; J2270; J2405; J3010; J3411; J3475; J3490; J7030; Q0163; Q9967

== ENCOUNTER → 2023-05-08 13:18 | Outpatient (BNVA) | payer MEDICARE, MEDICAID, SELFPAY | PROVIDERS: PCP Family Medicine; Visit Provider Nurse Practitioner Family | DX: I25.10 Atherosclerotic heart disease of native coronary artery without angina pectoris (principal); Z87.891 Personal history of nicotine dependence; I10 Essential (primary) hypertension | CPT/HCPCS: 99214 ==

== ENCOUNTER → 2023-05-16 10:42 | Outpatient (BNVA) | payer MEDICARE, MEDICAID, SELFPAY | PROVIDERS: PCP Family Medicine; Visit Provider Otolaryngology | DX: E07.9 Disorder of thyroid, unspecified (principal); R59.0 Localized enlarged lymph nodes | CPT/HCPCS: 99203; 99204 ==

== ENCOUNTER 2023-06-05 11:26 | Outpatient (CLI) | payer MEDICARE, MEDICAID, SELFPAY ==
--- NOTE | 2023-06-05 12:00 | US_ITS ---
WS: [id number] THYROID ULTRASOUND HISTORY: thyroid mass COMPARISON: 04/29/2023 Patient presents for thyroid biopsy. Patient is unable to lay flat for a biopsy. I was able to visual ize a LEFT thyroid mass which is towards the isthmus. This is bulging from the contour of the thyroid . There is also associated calcifications in this mass. After explaining the risks and possible compl ications to the patient the patient has a elected to not continue with the biopsy. Patient may need surgical excision and evaluation of the cervical chains. As the patient is not able to remain supine for any length of time PET/CT is probably not going to be useful. IMPRESSION: 1. Patient has declined thyroid biopsy at this time. Patient is unable to lay flat and was not comfor table after the risks and possible complications were explained to the patient. 2. Surgical excision and evaluation may be more beneficial.
== END 2023-06-05 11:27 | disposition home or self-care (01) ==
LOC: RAD 11:26
PROVIDERS: PCP Family Medicine; Visit Provider Otolaryngology
DX: E07.9 Disorder of thyroid, unspecified (principal)
CPT/HCPCS: 76536

== ENCOUNTER → 2023-07-10 13:03 | Outpatient (BNVA) | payer MEDICARE, MEDICAID, SELFPAY | PROVIDERS: PCP Family Medicine; Visit Provider Nurse Practitioner Family | DX: E11.52 Type 2 diabetes mellitus with diabetic peripheral angiopathy with gangrene (principal); E11.621 Type 2 diabetes mellitus with foot ulcer; L97.421 Non-pressure chronic ulcer of left heel and midfoot limited to breakdown of skin | CPT/HCPCS: 97597; 99213; A6210 ==

== ENCOUNTER 2023-08-14 15:10 | Emergency (ER) | payer MEDICARE, MEDICAID, SELFPAY ==
--- NOTE | 2023-08-14 15:14 | ECG_ITS ---
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 Measurements Intervals Nixon Rate: 97 P: 67 HI: 134 QRS: 93 QRSD: 87 T: 91 QT: 329 QTc: 419 Interpretive Statements SINUS RHYTHM POSSIBLE LEFT ATRIAL ENLARGEMENT [-0.1mV P-WAVE IN V1/V2] BORDERLINE RIGHT AXIS DEVIATION [QRS AXIS > 90] MINIMAL ST DEPRESSION [0.025+ mV ST DEPRESSION] Compared to ECG 04/29/2023 12:57:01 ST (T wave) deviation now present Electronically Signed On 08-15-2023 13:41:56 [employer] by Reyna Mcintosh M.D. [id number]
[2023-08-14 15:15] VITALS: BP 153/90; PULSE 99; RESP 16; TEMP 36.9; O2SAT 97; BMI 26.9
--- NOTE | 2023-08-14 15:24 | XRR_ITS ---
PROCEDURE INFORMATION: Exam: XR Chest Exam date and time: 08/14/2023 3:42 PM Age: 62 years old Clinical indication: Cough; Additional info: Dyspnea/cough TECHNIQUE: Imaging protocol: Radiologic exam of the chest. Views: 1 view. COMPARISON: CT angio chest PE protcl [id number] 04/29/2023 10:19 AM FINDINGS: Lungs: No focal consolidation or evidence of airspace disease. Pleural spaces: No evidence of pneumothorax or pleural effusion Heart/Mediastinum: Postsurgical changes of the mediastinum compatible with prior CABG. Cardiomediastinal silhouette is otherwise within normal limits. Bones/joints: No evidence of acute osseous abnormality. XR/XR chest 1V portable [id number] IMPRESSION: 1. No acute cardiopulmonary abnormality.
--- NOTE | 2023-08-14 15:24 | XRR_ITS ---
PROCEDURE INFORMATION: Exam: XR Right Foot Exam date and time: 08/14/2023 3:43 PM Age: 62 years old Clinical indication: Other: Ulcer; Additional info: Pain/foot ulcer TECHNIQUE: Imaging protocol: Radiologic exam of the right foot. Views: 3 or more views. COMPARISON: CT foot RT w con [id number] 11/15/2022 12:06 AM FINDINGS: Bones/joints: There has been amputation of the great toe. No evidence of acute fracture or subluxation. Tarsometatarsal alignment is maintained. No evidence of acute osseous erosion.Achilles enthesophyte. If there is concern for Achilles tendon pathology, follow-up outpatient MRI may be helpful. Soft tissues: Soft tissue ulceration of the 2nd toe. Clip noted in the medial soft tissues of the ankle. XR/XR foot RT min 3V* [id number] IMPRESSION: 1. Soft tissue ulceration of the 2nd toe without convincing evidence of underlying osseous erosion to suggest osteomyelitis. If there is ongoing clinical concern, consider correlation with MRI.
--- NOTE | 2023-08-14 15:28 | ED_ITS ---
HPI - General Adult 2 General: Chief complaint: General Medical Stated complaint: sick, chest pains, infected toe Time Seen by Provider: 08/14/23 15:24 Source: patient Mode of arrival: ambulatory History of Present Illness: 62-year-old male presents emergency room with direction of his primary care doctor he has a reddened plan right great second toe with an ulcer present with an eschar. It is not actively draining he denies any fever sweats or chills. He previously had lost his right great toe due to diabetic ulcer. He has poorly controlled diabetes mellitus with peripheral neuropathy. He has some red streaking from it as well but is mostly contained to the toe itself. Patient has some mildly erythematous cirrhotic like plaques bilaterally on the lower extremities and on the arms as well. Additionally patient has intermittent chest pain has been going on for a year or more he still has some mild chest discomfort at this time no radiation of the pain no associated shortness of breath. Onset (ago): minute(s) Location: lower extremity (Right foot) Relieving factors: none Exacerbating factors: none Associated symptoms: Deny chest pain, confusion, cough, diaphoresis, decreased appetite, dyspnea, fevers/chills, headache(s), malaise, nausea, rash, palpitations, seizures, short of breath, syncope, vomiting or weakness Treatments prior to arrival: none Review of Systems 2 Const: Denies: malaise or diaphoresis Card: Denies: chest pain, palpitations or syncope Resp: Denies: dyspnea GI: Denies: nausea or vomiting : Denies: dysuria, urinary frequency or urinary urgency Musc: Denies: neck pain or back pain Skin/Breast: Denies: rash Neuro: Denies: headache(s) or confusion PFS ED 2 PFSH: Medical History (Updated 08/14/23 @ 17:24 by Drew Velez DO) Diabetic peripheral neuropathy associated with type 2 diabetes mellitus Psoriasis Hernia Chronic back pain History of amputation of toe CAD (coronary artery disease) Hypertension Hyperlipidemia History of alcoholism Diabetes Surgical History History of appendectomy Hx laparoscopic cholecystectomy Postsurgical percutaneous transluminal coronary angioplasty (PTCA) status Prior to 2006 History of coronary artery bypass graft x 2 2006 Family History Other Family history of premature coronary artery disease Social History Smoking and tobacco/nicotine status: former use of tobacco/nicotine Alcohol intake: current Physical Exam 2 Const: GENERAL APPEARANCE: cooperative and comfortable O RIENTATION/CONSCIOUSNESS: Yes awake HENMT: COMMON NORMALS: normocephalic, atraumatic and hearing grossly normal bilaterally HEAD & SCALP: normocephalic and atraumatic Resp: COMMON NORMALS: normal respiratory effort, No retractions, No use of accessory muscles and clear to auscultation bilaterally AUSCULTATION: clear to auscultation bilaterally Cardio: COMMON NORMALS: regular rate, regular rhythm and No murmurs present (Cardio) RATE: regular rate RHYTHM: regular rhythm GI: COMMON NORMALS: Soft to palpation and No hepatosplenomegaly present A USCULTATION: Yes normoactive bowel sounds PALPATION: Yes Soft to palpation, No Tenderness to palpation present (GI), No Guarding due to palpation present (GI) and Yes No hepatosplenomegaly present Extremity: OTHER: Right great toe surgically absent right second toe has chronic ulcer no active drainage mild redness and erythema. Skin: COMMON NORMALS: no rashes or lesions noted GENERAL SKIN EXAM: no rashes or lesions noted Course 2 Vital Signs: Vital signs: Vital Signs Temperature 98.4 F 08/14/23 15:15 Pulse Rate 99 08/14/23 15:15 Respiratory Rate 16 08/14/23 15:15 Blood Pressure 153/90 08/14/23 15:15 Pulse Oximetry 97 08/14/23 15:15 Oxygen Delivery Me thod Room Air 08/14/23 15:15 MDM - General Adult Medical Decision Making Patient presented emergency room complaining of chest pain as well as toe ulcer. We consulted Dr. Khalil who was kind to see the patient in the department debrided the toe he will do follow-up in his office. We recommend that we start the patient on Bactrim DS it does look slightly infected it does not require in patient care. He may require referral to wound care at some point as well with Dr. Khalil will address that on his follow-up. He also complained of some chest pain but he was anxious to leave his initial EKG EKG did not show anything acute his chest x-ray was normal we did recommend a second troponin he waited to leave and left prior to being done was encouraged him to return if he has any worsening chest pain. He is already taking an aspirin daily. Medical Records I reviewed the patient's medical records. Lab Data I reviewed the patient's lab results. 08/14/23 15:52 08/14/23 15:52 Radiology Impressions Chest X-Ray 08/14/23 15:24 IMPRESSION: 1. No acute cardiopulmonary abnormality. Foot X-Ray 08/14/23 15: IMPRESSION: 1. Soft tissue ulceration of the 2nd toe without convincing evidence of underlying osseous erosion to suggest osteomyelitis. If there is ongoing clinical concern, consider correlation with MRI. Laboratory Results WBC 10.15 10^3/uL (3.29-11.43) 08/14/23 15:52 RBC 5.65 10^6/uL (3.85-5.65) 08/14/23 15:52 Hgb 16.60 g/dL (11.27-16.99) 08/14/23 15:52 Hct 49.3 % (37-53) 08/14/23 15:52 MCV 87.3 fl (82-101) 08/14/23 15:52 MCH 29.4 pg (27-33) 08/14/23 15:52 MCHC 33.7 g/dL (30-55) 08/14/23 15:52 RDW 11.7 % (12.1-15.1) L 08/14/23 15:52 Plt Count 332 10^3/cmm (157-399) 08/14/23 15:52 MPV 10.0 fL (7.4-10.4) 08/14/23 15:52 Neut % (Auto) 78.0 % 08/14/23 15:52 Lymph % (Auto) 10.9 % 08/14/23 15:52 [place] % (Auto) 6.9 % 08/14/23 15:52 Eos % (Auto) 1.5 % 08/14/23 15:52 Baso % (Auto) 0.7 % 08/14/23 15:52 Neut # (Auto) 7.92 10^3/uL (1.8-7.7) H 08/14/23 15:52 Lymph # (Auto) 1.1 10^3/uL (0.8-4.8) 08/14/23 15:52 [place] # (Auto) 0.7 10^3/uL (0.2-0.9) 08/14/23 15:52 Eos # (Auto) 0.2 10^3/uL (0.0-0.8) 08/14/23 15:52 Baso # (Auto) 0.1 10^3/uL (0.0-0.1) 08/14/23 15:52 Nucleated RBC % (auto) 0 % 08/14/23 15:52 Nucleated RBCs # 0.0 /100WBC 08/14/23 15:52 ESR 11 mm/hr (0-10) H 08/14/23 15:52 Sodium 133 mmol/L (136-145) L 08/14/23 15:52 Potassium 4.3 mmol/L (3.5-5.1) 08/14/23 15:52 Chloride 95 mmol/L (98-107) L 08/14/23 15:52 Carbon Dioxide 27 mmol/L (22-29) 08/14/23 15:52 Anion Gap 15.3 (5-19) 08/14/23 15:52 BUN 14 mg/dL (8-23) 08/14/23 15:52 Creatinine 0.7 mg/dL (0.7-1.2) 08/14/23 15:52 GFR Calculation 113.5 mL/min (90-130) 08/14/23 15:52 Glucose 468 mg/dL (65-115) H 08/14/23 15:52 Calculated Osmolality 297 mOsm/kg (285-295) H 08/14/23 15:52 Calcium 9.8 mg/dL (8.5-10.5) 08/14/23 15:52 Total Bilirubin 1.0 mg/dL (0.15-1.2) 08/14/23 15:52 AST 10 U/L (0-40) 08/14/23 15:52 ALT 18 U/L (0-41) 08/14/23 15:52 Alkaline Phosphatase 108 U/L (40-130) 08/14/23 15:52 Troponin T Baseline 14 ng/L (0-15) 08/14/23 15:52 C-Reactive Protein 3.3 mg/L (0.0-4.9) 08/14/23 15:52 Total Protein 7.3 g/dL (6.6-8.7) 08/14/23 15:52 Albumin 3.9 g/dL (3.5-5.2) 08/14/23 15:52 Globulin 3.4 g/dL (1.3-4.6) 08/14/23 15:52 All radiology interpretation(s) finalized by discharge Discharge Plan Discharge Patient Disposition: Home Clinical Impression: Uncontrolled diabetes mellitus, History of alcoholism, CAD (coronary artery disease), Diabetic infection of right foot, Diabetic peripheral neuropathy associated with type 2 diabetes mellitus, Cellulitis of right foot Condition: Stable Prescriptions: New Bactrim DS 800-160 mg tablet 1 tab PO BID 10 Days Qty: 20 0RF No Action (DME) Diabetic shoes with 3 sets of insoles See Rx Instructions .Route .MEDSUPPLY Qty: 1 0RF Rx Instructions: As directed by HOME (DME) OrthoWedge heel shoe to Left and Right Foot See Rx Instructions .Route .MEDSUPPLY Qty: 1 0RF Rx Instructions: As directed [employer] (DME) pen needle, diabetic [BD Ultra-Fine Micro Pen Needle] 32 gauge x 1/4 needle See Rx Instructions .ROUTE .MEDSUPPLY Qty: 50 0RF Rx Instructions: As directed (DME) blood-glucose meter [Swarm64 Glucose Monitoring] Kit See Rx Instructions .Route Qty: 1 0RF Rx Instructions: As directed aspirin 81 mg tablet,delayed release (DR/EC) 81 mg PO EVERY OTHER DAY atorvastatin 40 mg Tablet 40 mg PO BEDTIME Qty: 30 0RF folic acid 1 mg Tablet 1 mg PO DAILY Qty: 30 0RF metformin 500 mg tablet 500 mg PO BID Qty: 60 0RF Rx Instructions: do not start until 05/03 isosorbide mononitrate 30 mg Tablet Extended Release 24 Hr 30 mg PO DAILY Qty: 30 0RF pantoprazole 40 mg Tablet,Delayed Release (Dr/Ec) 40 mg PO DAILY Qty: 30 0RF metoprolol tartrate 50 mg Tablet 50 mg PO BID@0900,2100 Qty: 60 0RF Vitamin B-1 (mononitrate) 100 mg Tablet 100 mg PO DAILY Qty: 30 0RF Plavix 75 mg tablet 75 mg PO DAILY Qty: 30 2RF Discharge Orders: Discharge ED (Routine); Ordered 08/14/23 Ordered By: Drew Velez Referrals: Isabella Rogers MD [Primary Care Provider] - Discharge Diet: Usual diet Discharge Activity: Increase activity as tolerated Patient Instructions: Opioid Safety, Pain Management Activity Restrictions/Additional Instructions: Thank you for choosing [facility] for your healthcare needs today. Please realize this is an emergency room and that we are providing you with a medical screening exam and this may not be complete and all inclusive of all the testing and or work up that you may need to determine your ailment or severity of your illness. It is very important that you follow up as instructed or that you return to the Emergency Department should you have concerns or if your condition changes or worsens in any way. You were seen in the emergency room today for the sore on your foot. Dr. Khalil was consulted and debrided the ulcer. You should follow-up with him next week. Start the oral antibiotics. Dr. Khalil will further evaluate and make recommendations for care. If you develop a fever return to the emergency room. We also evaluated for chest pain. Since you chose to leave before the second troponin was done the evaluation is incomplete if you have worsening chest pain you should return to the emergency room. Coding Level of Care Code ED Animal Assistant for Freddy Ocampo
[2023-08-14 16:11] LABS: Basophils # 0.1 10^3/uL (0.0-0.1); Basophils % 0.7 %; Eosinophils # 0.2 10^3/uL (0.0-0.8); Eosinophils % 1.5 %; Hematocrit 49.3 % (37-53); Lymphocytes # 1.1 10^3/uL (0.8-4.8); Lymphocytes % 10.9 %; Mean Corpuscular HGB Conc 33.7 g/dL (30-55); Mean Corpuscular Hemoglobin 29.4 pg (27-33); Mean Corpuscular Volume 87.3 fl (82-101); Monocytes # 0.7 10^3/uL (0.2-0.9); Monocytes % 6.9 %; Neutrophils # 7.92 10^3/uL (1.8-7.7); Nucleated Red Blood Cells % 0 %; Platelet Count 332 10^3/cmm (157-399); Red Blood Count 5.65 10^6/uL (3.85-5.65); Red Cell Distribution Width 11.7 % (12.1-15.1); White Blood Count 10.15 10^3/uL (3.29-11.43)
--- NOTE | 2023-08-14 16:13 | ECG_ITS ---
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 Measurements Intervals [place] Rate: 75 P: 76 WA: 175 QRS: 70 QRSD: 88 T: 66 QT: 373 QTc: 417 Interpretive Statements SINUS RHYTHM Compared to ECG 08/14/2023 15:14:39 ST (T wave) deviation no longer present Electronically Signed On 10-01-2023 12:09:31 HOT MAN by Hu Escalante M.D. [id number]
[2023-08-14 16:17] LABS: Erythrocyte Sedimentation Rate 11 mm/hr (0-10)
[2023-08-14 16:26] LABS: Alanine Aminotransferase 18 U/L (0-41); Albumin Level 3.9 g/dL (3.5-5.2); Alkaline Phosphatase 108 U/L (40-130); Anion Gap 15.3 (5-19); Aspartate Amino Transferase 10 U/L (0-40); Blood Urea Nitrogen 14 mg/dL (8-23); C Reactive Protein 3.3 mg/L (0.0-4.9); Calcium 9.8 mg/dL (8.5-10.5); Carbon Dioxide 27 mmol/L (22-29); Chloride 95 mmol/L (98-107); Globulin 3.4 g/dL (1.3-4.6); Glomerular Filtration Rate 113.5 mL/min (90-130); Glucose 468 mg/dL (65-115); Osmolality Calculated 297 mOsm/kg (285-295); Potassium 4.3 mmol/L (3.5-5.1); Sodium 133 mmol/L (136-145); Total Protein 7.3 g/dL (6.6-8.7)
--- NOTE | 2023-08-14 17:12 | P.CONIM_ITS ---
Providers/Reason For Consult 2 Consulting Physician/Specialty*: Eric Khalil D.P.M./podiatry Reason for Consult*: Diabetic ulcer right second toe Primary Care Provider: Isabella Rogers MD History of Present Illness History of Present Illness Hudson Griffin is a 62 year old male presents with complaints of a wound to the tip of his right second toe, has been progressing over the past few weeks, became concerned due to increased redness and went to primary care who directed him to the emergency department. He has a history of right great toe amputation November 2022 secondary to gangrene. Surgical cultures from that amputation grew Morganella and Proteus species. He has not been started on a course of antibiotics for his current wound. Patient denies any subjective nausea, vomiting, fever, chills, shortness of breath or chest pain. Review of Systems 2 General: Reports: 10 or more systems reviewed and unremarkable except in HPI and below Const: Denies: fever(s) or chills Eyes: Denies: change in vision Card: Denies: chest pain or palpitations Resp: Denies: dyspnea or productive cough GI: Denies: abdominal pain, nausea or vomiting : Denies: flank pain Musc: Reports: extremity swelling, joint stiffness and deformity Skin/Breast: Reports: erythema, sores, changes in skin color, dry skin, nail changes and change in hair Neuro: Reports: numbness in extremities, sensory changes and difficulty walking Psych: Denies: suicidal ideation Endo: Denies: change in body appearance Danny/Lymph: Denies: tender lymph nodes Medications/Allergies Home Medications Medication Instructions Recorded Confirmed Last Taken Type OrthoWedge heel shoe to Left and #1 11/15/22 05/16/23 Unknown Rx Right Foot blood-glucose meter (CareTouch #1 11/19/22 05/16/23 Unknown Rx Glucose Monitoring System kit) pen needle, diabetic 32 gauge x #50 11/19/22 05/16/23 Unknown Rx 1/4 (BD Ultra-Fine Micro Pen Needle) Diabetic shoes with 3 sets of #1 12/19/22 05/16/23 Unknown Rx insoles aspirin 81 mg tablet,delayed 81 mg PO EVERY OTHER DAY 04/29/23 05/16/23 04/29/23 04:30 History release took 2 tabs at home atorvastatin 40 mg tablet 40 mg PO BEDTIME #30 tabs 05/01/23 05/16/23 Unknown Rx clopidogrel 75 mg tablet (Plavix) 75 mg PO DAILY #30 tabs 05/01/23 05/16/23 Unknown Rx folic acid 1 mg tablet 1 mg PO DAILY #30 tabs 05/01/23 05/16/23 Unknown Rx isosorbide mononitrate 30 mg 30 mg PO DAILY #30 tabs 05/01/23 05/16/23 Unknown Rx tablet,extended release 24 hr metformin 500 mg tablet 500 mg PO BID #60 tabs 05/01/23 05/16/23 Unknown Rx metoprolol tartrate 50 mg tablet 50 mg PO BID@0900,2100 #60 tabs 05/01/23 05/16/23 Unknown Rx pantoprazole 40 mg tablet,delayed 40 mg PO DAILY #30 tabs 05/01/23 05/16/23 Unknown Rx release thiamine mononitrate (vit B1) 100 100 mg PO DAILY #30 tabs 05/01/23 05/16/23 Unknown Rx mg tablet (Vitamin B-1 (mononitrate)) Allergies Allergy/AdvReac Type Severity Reaction Status Date / Time No Known Allergies Allergy Verified 05/16/23 10:56 PFSH Acute 2 PFSH: Medical History (Updated 08/14/23 @ 17:24 by Drew Velez DO) Diabetic peripheral neuropathy associated with type 2 diabetes mellitus Psoriasis Hernia Chronic back pain History of amputation of toe CAD (coronary artery disease) Hypertension Hyperlipidemia History of alcoholism Diabetes Surgical History History of appendectomy Hx laparoscopic cholecystectomy Postsurgical percutaneous transluminal coronary angioplasty (PTCA) status Prior to 2006 History of coronary artery bypass graft x 2 2006 Family History Other Family history of premature coronary artery disease Social History Smoking and tobacco/nicotine status: former use of tobacco/nicotine Alcohol intake: current Vitals/I&O/Wt Last Vital Signs Temp 98.4 F 08/14/23 15:15 Pulse 99 08/14/23 15:15 Resp 16 08/14/23 15:15 BP 153/90 08/14/23 15:15 Pulse Ox 97 08/14/23 15:15 O2 Del Method Room Air 08/14/23 15:15 Weight last 48 hrs Weight 199 lb Physical Exam 2 Narrative: GENERAL: Patient is alert and oriented ?3 and in no acute distress. The following is a focused right lower extremity exam. VASCULAR: Dorsalis pedis and posterior tibial arteries palpable +2. Capillary refill time less than 3 seconds to the left distal hallux and right second toe. Calf is supple and nontender proximally and distally. No edema to the lower extremities. NEUROLOGICAL: Protective sensation diminished. DERMATOLOGICAL: Wound at the distal tuft of the right second toe measures 4 mm x 4 mm x 2 mm, does not probe to bone, extends down to myofascial layer with localized erythema, no [place] purulence, no proximal lymphangitic streaking appreciated. Erythema is localized to the right second toe. MUSCULOSKELETAL: Able to wiggle toes on command. No pain with posterior calf squeeze bilaterally. No soft tissue crepitus on palpation of the lower extremities. Status post right hallux amputation. Data 08/14/23 15:52 08/14/23 15:52 A&P Assessment and plan (1) Non-pressure chronic ulcer of other part of right foot with necrosis of muscle: PROCEDURE: Full thickness wound debridement Location: Right second toe, distal tuft Local Anesthesia: none due to neuropathy Consent: Verbal Sterile Prep: with alcohol Details: Full thickness sharp debridement of the wound was performed using sterile dermal curette. The wound was debrided of hyperkeratotic rim and devitalized and fibrotic tissue down to muscle/fascia, being the deepest level of debridement. Predebridement measurements: 4 mm x 4 mm x 2 mm Postdebridement measurements: 5 mm x 4 mm x 3 mm Hemostasis: Pressure Wound culture postdebridement taken, sent to microbiology for Gram stain, culture and sensitivity. Irrigation: sterile saline Dressing: Betadine wet-to-dry Estimated Blood Loss: minimal Offloading: Crest pad (2) Diabetic peripheral neuropathy associated with type 2 diabetes mellitus: Plan 62 year old male presents with complaints of a wound to the tip of his right second toe, has been progressing over the past few weeks, became concerned due to increased redness and went to primary care who directed him to the emergency department. He has a history of right great toe amputation November 2022 secondary to gangrene. Surgical cultures from that amputation grew Morganella and Proteus species. He has not been started on a course of antibiotics for his current wound. -Patient is afebrile, denies subjective fevers or chills or nausea, no leukocytosis. ESR 11. -X-ray right foot 3 views taken emergency department negative for acute fracture, negative for foreign body, negative for soft tissue emphysema and negative for bony destruction. -Wound was excisionally debrided as above, wound cultures taken as above and sent to microbiology. -Dressing Betadine wet-to-dry utilizing gauze, Nelia, Coban and offloading with crest pad. -Antibiotics per emergency room physician. -Follow-up with in podiatry clinic 08/18/2022. Coding Level of Care Code Acute Code for Chg Fwd Diagnoses Non-pressure chronic ulcer of other part of right foot with necrosis of muscle L97.513 Diabetic peripheral neuropathy associated with type 2 diabetes mellitus E11.42 Comment CPT 13719
[2023-08-14 17:22] LABS: Troponin(5th) Baseline 14 ng/L (0-15)
== END 2023-08-14 18:02 | disposition home or self-care (01) ==
PROVIDERS: Emergency Provider Family Medicine; PCP Family Medicine
DX: E11.621 Type 2 diabetes mellitus with foot ulcer (principal); L97.519 Non-pressure chronic ulcer of other part of right foot with unspecified severity; E11.42 Type 2 diabetes mellitus with diabetic polyneuropathy; I25.10 Atherosclerotic heart disease of native coronary artery without angina pectoris; L03.115 Cellulitis of right lower limb; F10.21 Alcohol dependence, in remission; Z79.82 Long term (current) use of aspirin; Z79.02 Long term (current) use of antithrombotics/antiplatelets; Z79.84 Long term (current) use of oral hypoglycemic drugs; Z87.891 Personal history of nicotine dependence; I10 Essential (primary) hypertension; E78.5 Hyperlipidemia, unspecified; Z95.1 Presence of aortocoronary bypass graft
CPT/HCPCS: 36415; 71045; 73630; 80053; 84484; 85025; 85651; 86140; 87040; 87070; 87075; 87077; 87186; 87205; 93005; 99285

== ENCOUNTER → 2023-08-20 08:51 | Outpatient (BNVA) | payer MEDICARE, MEDICAID, SELFPAY | PROVIDERS: PCP Family Medicine; Visit Provider Podiatrist Foot & Ankle Surgery | DX: L97.513 Non-pressure chronic ulcer of other part of right foot with necrosis of muscle (principal); E11.42 Type 2 diabetes mellitus with diabetic polyneuropathy; E11.621 Type 2 diabetes mellitus with foot ulcer; Z79.84 Long term (current) use of oral hypoglycemic drugs; I75.021 Atheroembolism of right lower extremity | CPT/HCPCS: 99213 ==

== ENCOUNTER → 2023-08-29 13:24 | Outpatient (BNVA) | payer MEDICARE, MEDICAID, SELFPAY | PROVIDERS: PCP Family Medicine; Visit Provider Podiatrist Foot & Ankle Surgery | DX: E11.42 Type 2 diabetes mellitus with diabetic polyneuropathy (principal); E11.621 Type 2 diabetes mellitus with foot ulcer; L97.514 Non-pressure chronic ulcer of other part of right foot with necrosis of bone; L97.529 Non-pressure chronic ulcer of other part of left foot with unspecified severity; Z89.411 Acquired absence of right great toe; Z79.84 Long term (current) use of oral hypoglycemic drugs | CPT/HCPCS: 99214 ==

== ENCOUNTER 2023-09-01 10:06 | Day surgery (SDC) | payer MEDICARE, MEDICAID, SELFPAY ==
[2023-09-01] VITALS (9 sets, daily range): BP systolic 123–149; BP diastolic 74–95; PULSE 78–107; RESP 15–18; TEMP 36.2–36.9; O2SAT 95–98; BMI 24.4
[2023-09-01] MEDS: sodium chloride 0.9% 1,000 ML 30 ML IV (10:59)
[2023-09-01 11:00] LABS: Glucose Point of Care 265 mg/dL (70-110)
--- NOTE | 2023-09-01 11:39 | P.HPUD_ITS ---
Surgery/Procedure H&P Update DATE OF PROCEDURE: September 01, 2023 DATE H&P PERFORMED: 08/29/23 H&P UPDATE INFORMATION: I have reviewed H&P completed within last 30 days, I have examined patient prior to procedure, No changes to prior documentation and H&P is in [facility] EMR on date indicated PREOP DIAGNOSIS: Osteomyelitis right second toe, left diabetic foot infection. PLANNED PROCEDURE: Operation Date: 09/01/23 12:00 Proposed Procedures p Right Second Amputation Toe/s(Right) - Eric Khalil DPM s Incision and Debridement down to and including fascia(left foot)(Left) - Eric Khalil DPM
--- NOTE | 2023-09-01 11:40 | PM.OP ---
Operative Report Date of procedure: September 01, 2023 Pre-op diagnosis: Osteomyelitis right second toe. 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 Post-op diagnosis: Same Procedure done: Right second toe amputation. CPT code 07453 Incision and drainage left foot down to and including fascia left great toe and left third toe. CPT code 32894 Implants: Vicryl, 3-0 nylon, 4-0 nylon Specimens removed/disposition: Bone right second toe proximal phalanx sent to microbiology for Gram stain, culture and sensitivity Pathology: Right second toe sent to pathology for permanent Surgeon: Eric Khalil DPM Weatherization Specialist: Andrae Estimated blood loss: 5 milliliters 12 minutes IV fluids: 0 Urine output: 0 Complications: Nonne Brief History: Patient examined and evaluated, findings and treatment options discussed with patient at length. Refill on Bactrim DS twice daily for 14 days Continue Betadine wet-to-dry Offloading with cam boot to the left lower extremity Patient scheduled for outpatient surgery this coming 09/01/2023 for debridement of left foot down to including myofascial layer and right second toe amputation. Patient is agreeable and wishes to proceed. I reviewed at length with the patient, the risks, potential complications, benefits, alternatives, expectations, and typical outcomes associated with the surgery. The risks and potential complications were explained in detail, including but not limited to infection, wound dehiscence or soft tissue complications, bleeding and hematoma, chronic edema, neuritis or nerve damage producing numbness or chronic pain, CRPS, failure to relieve pain or worsening pain, thick / painful / unsightly scar, limited motion / stiffness, malposition, delayed union, malunion, or nonunion, fracture, reaction to implants, anesthetic complications, venous thromboembolism, and deformity recurrence. I discussed the notion of no regrets with the patient as it pertains to complications and outcomes. The patient seemed to understand the nature of the proposed care and required convalescence. They asked appropriate questions, answered to their satisfaction. They are aware no guarantees can be made as to a satisfactory outcome and they understand there may be other possible unforeseen complications or outcomes not listed here that will be treated accordingly if they arise. There were no written or implied guarantees given to the patient. They gave informed consent to proceed. Procedure: Under mild sedation the patient was brought to the operating room and remained on the gurney in supine position. A timeout was performed. Anesthesia was then administered by the anesthesia service. Local anesthesia injected by myself consisting of 20 cc of one-to-one mixture 1% lidocaine and 0.5 to Marcaine plain in a right second ray block fashion. Well-padded pneumatic tourniquet applied to the right high calf. The right and the left lower extremity were then scrubbed, prepped and draped utilizing normal aseptic technique. Right foot was elevated and the tourniquet inflated to 250 mmHg. Attention was directed to the right second toe which was visually inspected and noted to have a wound exposed down to bone with devitalized soft tissue down to and including bone. A left second toe amputation was performed sharply with a #10 blade with incision full-thickness down to bone this was a vertical semielliptical incision and the right second toe was disarticulated sharply through the right second metatarsal phalangeal joint and passed from the operative field. Bone from the proximal phalanx of the right second toe was sent to microbiology for Gram stain, culture and sensitivity. The remaining portion of the toe was sent to pathology for permanent. The head of the second metatarsal of the right foot was directly visualized and appeared bright white with appropriate color and density without signs of necrosis. Adjacent soft tissue at the level of the amputation appeared viable. The incision was irrigated with copious amounts of sterile skin solution. Bleeders were ligated and cauterized as necessary. The amputation site was then closed in a layered fashion with deep fascia and subcutaneous tissue reapproximated with 4-0 Vicryl. Skin reapproximated with 3-0 and 4-0 nylon. The incision was then dressed with Adaptic, sterile 4 x 4's, Kerlix and Giovanny wrap in the right lower extremity tourniquet was deflated. A prompt hyperemic response was noted to the remaining digits of the right foot this was digits 3, 4 and 5. Attention was then directed to the left foot where full-thickness wounds appreciated at the plantar aspect of the left hallux and the left third toe with exposed myofascial layer was appreciated. Wound bed was devitalized and sharp debridement was performed. Predebridement measurements of the left plantar great toe wound were 2 mm x 3 mm x 3 mm, the left third toe wound distally and plantarly measures 3 mm x 3 mm x 3 mm. Both wounds were debrided sharply with a #15 blade down to and including myofascial layer, incision and debridement was performed of devitalized epidermis, dermis, subcutaneous tissue and myofascial layer. Postdebridement wound measurements of the left great toe 5 mm x 3 mm x 3 mm and postdebridement wound measurements of the left third toe 4 mm x 4 mm x 3 mm. Hemostasis achieved via manual pressure. The wounds were irrigated with saline solution and dressed with Betadine wet-to-dry gauze, Nelia and Giovanny wrap. Postop shoe was applied to the left lower extremity. Cam boot was applied to the right lower extremity. Patient tolerated the procedure and anesthesia well and was transferred to the PACU with vital signs stable and vascular status intact. He is given at home care instructions and scheduled follow-up as well as my cell phone number to contact with any postoperative questions or concerns.
--- NOTE | 2023-09-01 11:41 | ANES.PREANE2 ---
Pre-Anesthetic Assessment Height/Weight: Height 1.83 m Weight 81.647 kg Temp Pulse Resp BP Pulse Ox O2 Del Method 98.4 F 107 H 18 126/85 98 Room Air 09/01/23 10:22 09/01/23 10:22 09/01/23 10:22 09/01/23 10:22 09/01/23 10:22 09/01/23 10:45 Preop Diagnosis: Osteomyelitis right second toe, left diabetic foot infection. Operation Date: 09/01/23 12:00 Proposed Procedures p Right Second Amputation Toe/s(Right) - Eric Khalil DPM s Incision and Debridement down to and including fascia(left foot)(Left) - Eric Khalil DPM Familial anesthetic complications: None Was Beta Torri taken within 24 hours: N/A Was Clonidine taken within 24 hours: N/A Last intake: Intake Last Liquid Date 08/31/23 Last Liquid Time 23:55 Last Solid Date 08/31/23 Last Solid Time 23:40 Social No alcohol and No tobacco Exam alert, oriented x 3, clear to auscultation bilaterally and regular rate & rhythm Airway Mallampati: Class II Dentition: chipped CV/HEM Coronary Artery Disease and Hypertension s/p stents and cabg in 2006, recent cath in 2022 showed CAD in small caliber vessels, so was medically managed Chronic Renal Insufficiency Neuropsych Cerebrovascular Accident and Seizure Anesthetic Plan ASA status: 4 Anesthesia: MAC Risk of > 500 ml blood loss (7ml/kg in children): No Medications/Allergies Home Medications Medication Instructions Recorded Confirmed Last Taken Type OrthoWedge heel shoe to Left and #1 dawna 11/15/22 08/29/23 Unknown Rx Right Foot blood-glucose meter (CareTouch #1 ea 11/19/22 08/29/23 Unknown Rx Glucose Monitoring System kit) pen needle, diabetic 32 gauge x #50 11/19/22 08/29/23 Unknown Rx 1/4 (BD Ultra-Fine Micro Pen Needle) Diabetic shoes with 3 sets of #1 dawna 12/19/22 08/29/23 Unknown Rx insoles aspirin 81 mg tablet,delayed 81 mg PO EVERY OTHER DAY 04/29/23 08/29/23 04/29/23 04:30 History release took 2 tabs at home Allergies Allergy/AdvReac Type Severity Reaction Status Date / Time No Known Allergies Allergy Verified 08/29/23 15:34 [facility] Anesthesia Medical History Diabetic peripheral neuropathy associated with type 2 diabetes mellitus Psoriasis Hernia Chronic back pain History of amputation of toe CAD (coronary artery disease) Hypertension Hyperlipidemia History of alcoholism Diabetes Surgical History History of appendectomy Hx laparoscopic cholecystectomy Postsurgical percutaneous transluminal coronary angioplasty (PTCA) status Prior to 2006 History of coronary artery bypass graft x 2 2006 Family History Other Family history of premature coronary artery disease Social History Smoking and tobacco/nicotine status: former use of tobacco/nicotine Alcohol intake: current Data Anesthesia Cardiac Studies: Echocardiogram 04/29/23
[2023-09-01] MEDS: insulin regular-human 100 units/1 mL 10 UNIT IVP (11:56)
[2023-09-01] MEDS: ceFAZolin 2,000 MG in sodium chloride 0.9% (plus) 50 ML 100 MG IV (12:04)
[2023-09-01] MEDS: lidocaine 1% INJ 10 mL (per mL) 20 ML XX (12:05)
[2023-09-01] MEDS: BUPivacaine 0.5% INJ 30 mL 20 ML XX (12:13)
--- NOTE | 2023-09-01 12:39 | W.PM.BPON ---
Date of Procedure: 09/01/23 Surgeon: Eric Khalil DPM [employer] System Markup Clerk(s): Andrae Procedure(s) performed: Right second toe amputation. Wound debridement down to myofascial layer left foot. Findings of the procedure(s): Osteomyelitis right second toe. Estimated blood loss: 5 mL Specimen(s) removed: Bone right second toe sent to microbiology for Gram stain, culture and sensitivity. Post-operative diagnosis: Right second toe osteomyelitis, wound to myofascial layer left foot. No complications with anesthesia for procedure.
[2023-09-01] MEDS: acetaminophen-codeine 300-30mg Tablet 1 TAB PO (13:58)
== END 2023-09-01 14:25 | disposition home or self-care (01) ==
PROVIDERS: PCP Nurse Practitioner Family; Visit Provider Podiatrist Foot & Ankle Surgery
PROC: (CPT 28003; principal; 2023-09-01 12:00)
PROC: (CPT 28003; 2023-09-01 12:00)
DX: M86.8X7 Other osteomyelitis, ankle and foot (principal); L97.522 Non-pressure chronic ulcer of other part of left foot with fat layer exposed; I25.10 Atherosclerotic heart disease of native coronary artery without angina pectoris; I10 Essential (primary) hypertension; Z95.5 Presence of coronary angioplasty implant and graft; Z95.1 Presence of aortocoronary bypass graft; Z86.73 Personal history of transient ischemic attack (TIA), and cerebral infarction without residual deficits; Z79.82 Long term (current) use of aspirin; E11.42 Type 2 diabetes mellitus with diabetic polyneuropathy; Z87.891 Personal history of nicotine dependence
CPT/HCPCS: 28003; 28825; 36416; 82962; 87070; 87075; 87077; 87176; 87186; 87205; 88305; 88311; J0690; J1815; J2250; J2704; J3010; J3490; J7030

== ENCOUNTER → 2023-09-04 12:50 | Outpatient (BNVA) | payer MEDICARE, MEDICAID, SELFPAY | PROVIDERS: PCP Nurse Practitioner Family; Visit Provider Podiatrist Foot & Ankle Surgery | DX: Z98.890 Other specified postprocedural states (principal); Z89.421 Acquired absence of other right toe(s) | CPT/HCPCS: 99024 ==

== ENCOUNTER → 2023-09-09 09:10 | Outpatient (BNVA) | payer MEDICARE, MEDICAID, SELFPAY | PROVIDERS: PCP Nurse Practitioner Family; Visit Provider Specialist | DX: G20.A1 Parkinson's disease without dyskinesia, without mention of fluctuations (principal); G25.0 Essential tremor | CPT/HCPCS: 99204 ==

== ENCOUNTER → 2023-09-11 10:42 | Outpatient (BNVA) | payer MEDICARE, MEDICAID, SELFPAY | PROVIDERS: PCP Nurse Practitioner Family; Visit Provider Podiatrist Foot & Ankle Surgery | DX: E11.42 Type 2 diabetes mellitus with diabetic polyneuropathy (principal); S98.111A Complete traumatic amputation of right great toe, initial encounter; M21.41 Flat foot [pes planus] (acquired), right foot; M21.42 Flat foot [pes planus] (acquired), left foot; X58.XXXA Exposure to other specified factors, initial encounter; Z79.84 Long term (current) use of oral hypoglycemic drugs | CPT/HCPCS: 99213 ==

== ENCOUNTER → 2023-09-18 10:30 | Outpatient (BNVA) | payer MEDICARE, MEDICAID, SELFPAY | PROVIDERS: PCP Nurse Practitioner Family; Visit Provider Podiatrist Foot & Ankle Surgery | DX: E11.42 Type 2 diabetes mellitus with diabetic polyneuropathy (principal); M21.41 Flat foot [pes planus] (acquired), right foot; M21.42 Flat foot [pes planus] (acquired), left foot; L97.511 Non-pressure chronic ulcer of other part of right foot limited to breakdown of skin; E11.621 Type 2 diabetes mellitus with foot ulcer; Z79.84 Long term (current) use of oral hypoglycemic drugs | CPT/HCPCS: 99213 ==

== ENCOUNTER → 2023-09-25 09:04 | Outpatient (BNVA) | payer MEDICARE, MEDICAID, SELFPAY | PROVIDERS: PCP Nurse Practitioner Family; Visit Provider Podiatrist Foot & Ankle Surgery | DX: E11.42 Type 2 diabetes mellitus with diabetic polyneuropathy (principal); M21.41 Flat foot [pes planus] (acquired), right foot; M21.42 Flat foot [pes planus] (acquired), left foot; L97.511 Non-pressure chronic ulcer of other part of right foot limited to breakdown of skin; E11.621 Type 2 diabetes mellitus with foot ulcer; Z79.84 Long term (current) use of oral hypoglycemic drugs | CPT/HCPCS: 99213 ==

== ENCOUNTER → 2023-10-09 13:08 | Outpatient (BNVA) | payer MEDICARE, MEDICAID, SELFPAY | PROVIDERS: PCP Nurse Practitioner Family; Visit Provider Thoracic Surgery (Cardiothoracic Vascular Surgery) | DX: E11.52 Type 2 diabetes mellitus with diabetic peripheral angiopathy with gangrene (principal); E11.621 Type 2 diabetes mellitus with foot ulcer; L97.521 Non-pressure chronic ulcer of other part of left foot limited to breakdown of skin; L97.511 Non-pressure chronic ulcer of other part of right foot limited to breakdown of skin; E11.42 Type 2 diabetes mellitus with diabetic polyneuropathy; M21.41 Flat foot [pes planus] (acquired), right foot; M21.42 Flat foot [pes planus] (acquired), left foot; S98.111A Complete traumatic amputation of right great toe, initial encounter; X58.XXXA Exposure to other specified factors, initial encounter; Z79.84 Long term (current) use of oral hypoglycemic drugs | CPT/HCPCS: 97597; 99213 ==

== ENCOUNTER → 2023-10-23 13:04 | Outpatient (BNVA) | payer MEDICARE, MEDICAID, SELFPAY | PROVIDERS: PCP Nurse Practitioner Family; Visit Provider Thoracic Surgery (Cardiothoracic Vascular Surgery) | DX: E11.52 Type 2 diabetes mellitus with diabetic peripheral angiopathy with gangrene (principal); E11.621 Type 2 diabetes mellitus with foot ulcer; L97.521 Non-pressure chronic ulcer of other part of left foot limited to breakdown of skin | CPT/HCPCS: 97597 ==

== ENCOUNTER → 2023-10-30 11:22 | Outpatient (BNVA) | payer MEDICARE, MEDICAID, SELFPAY | PROVIDERS: PCP Nurse Practitioner Family; Visit Provider Podiatrist Foot & Ankle Surgery | DX: Z51.89 Encounter for other specified aftercare (principal); E11.42 Type 2 diabetes mellitus with diabetic polyneuropathy; S98.111A Complete traumatic amputation of right great toe, initial encounter; M21.41 Flat foot [pes planus] (acquired), right foot; M21.42 Flat foot [pes planus] (acquired), left foot; L97.511 Non-pressure chronic ulcer of other part of right foot limited to breakdown of skin; E11.52 Type 2 diabetes mellitus with diabetic peripheral angiopathy with gangrene; E11.621 Type 2 diabetes mellitus with foot ulcer; L97.521 Non-pressure chronic ulcer of other part of left foot limited to breakdown of skin; X58.XXXA Exposure to other specified factors, initial encounter; Z79.84 Long term (current) use of oral hypoglycemic drugs | CPT/HCPCS: 97597; 99213 ==

== ENCOUNTER → 2023-11-13 10:34 | Outpatient (BNVA) | payer MEDICARE, MEDICAID, SELFPAY | PROVIDERS: PCP Nurse Practitioner Family; Visit Provider Thoracic Surgery (Cardiothoracic Vascular Surgery) | DX: E11.52 Type 2 diabetes mellitus with diabetic peripheral angiopathy with gangrene (principal); E11.621 Type 2 diabetes mellitus with foot ulcer; L97.521 Non-pressure chronic ulcer of other part of left foot limited to breakdown of skin | CPT/HCPCS: 97597 ==

== ENCOUNTER → 2023-11-20 12:59 | Outpatient (BNVA) | payer MEDICARE, MEDICAID, SELFPAY | PROVIDERS: PCP Nurse Practitioner Family; Visit Provider Thoracic Surgery (Cardiothoracic Vascular Surgery) | DX: E11.52 Type 2 diabetes mellitus with diabetic peripheral angiopathy with gangrene (principal); E11.621 Type 2 diabetes mellitus with foot ulcer; L97.521 Non-pressure chronic ulcer of other part of left foot limited to breakdown of skin | CPT/HCPCS: 97597 ==

== ENCOUNTER → 2023-11-27 12:57 | Outpatient (BNVA) | payer MEDICARE, MEDICAID, SELFPAY | PROVIDERS: PCP Nurse Practitioner Family; Visit Provider Thoracic Surgery (Cardiothoracic Vascular Surgery) | DX: Z09 Encounter for follow-up examination after completed treatment for conditions other than malignant neoplasm (principal); Z87.2 Personal history of diseases of the skin and subcutaneous tissue | CPT/HCPCS: 99212 ==

== ENCOUNTER 2023-12-25 00:54 | Emergency (ER) | payer MEDICARE, MEDICAID, SELFPAY ==
[2023-12-25 00:55] VITALS: BP 131/79; PULSE 105; RESP 18; TEMP 36.7; O2SAT 95; BMI 26.6
--- NOTE | 2023-12-25 01:04 | ECG_ITS ---
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 Measurements Intervals [place] Rate: 100 P: 56 MI: 132 QRS: 85 QRSD: 88 T: 88 QT: 330 QTc: 427 Interpretive Statements SINUS TACHYCARDIA POSSIBLE LEFT ATRIAL ENLARGEMENT [-0.1mV P-WAVE IN V1/V2] NONSPECIFIC ST & T-WAVE ABNORMALITY Compared to ECG 10/01/2023 11:10:40 T-wave abnormality now present Sinus rhythm no longer present Electronically Signed On 12-25-2023 17:10:41 CDT by Hu Escalante M.D. [id number]
--- NOTE | 2023-12-25 01:31 | XRR_ITS ---
PROCEDURE INFORMATION: Exam: XR Chest Exam date and time: 12/25/2023 1:38 AM Age: 62 years old Clinical indication: Angina; Prior surgery; Surgery date: 6+ months; Surgery type: Cabg; Additional info: Chest pain TECHNIQUE: Imaging protocol: Radiologic exam of the chest. Views: 1 view. COMPARISON: CR XR chest 1V portable [id number] 08/14/2023 3:42 PM FINDINGS: Lungs: Unremarkable. No consolidation. Pleural spaces: Unremarkable. No pleural effusion. No pneumothorax. Heart/Mediastinum: Postprocedural changes of the mediastinum. Calcified hilar lymphadenopathy, predominantly left. Bones/joints: Status post sternotomy. Diffuse degenerative change of the visualized osseous structures. XR/XR chest 1V portable [id number] IMPRESSION: 1. No acute cardiopulmonary findings. 2. Additional findings as above.
--- NOTE | 2023-12-25 01:32 | ED_ITS ---
HPI - Back Pain/Injury 2 General: Chief Complaint: Back Pain/Injury Stated Complaint: back pain Time Seen by Provider: 12/25/23 01:18 History of Present Illness: Patient presents to the ER by EMS with complaints of right-sided thoracic/shoulder pain. He says he had this for a couple days but has been getting worse. He did say once he got off the lawnmower today and took a couple steps he got lightheaded dizzy felt his got a pass out and this pain was bad then. He also stated that a couple days ago he was sitting on the porch watching neighbors chop a tree down and he got the same lightheaded dizziness Fallick is going to pass out. Patient does admit to having intermittent sharp shooting stabbing chest pains prior. Per review of the records he has seen Dr. Mcintosh and Marilee Cheung he has had two-vessel coronary bypass surgery, high blood pressure dyslipidemia hypertension and about a [id number] history's of smoking. Per angiogram back in or around 09/08/2022 patient had widespread extensive disease but it was appropriate to treat him medically. Review of Systems 2 General: Reports: 10 or more systems reviewed and unremarkable except in HPI and below PFSH ED 2 PFSH: Medical History Diabetic peripheral neuropathy associated with type 2 diabetes mellitus Psoriasis Hernia Chronic back pain CAD (coronary artery disease) Hypertension Hyperlipidemia History of alcoholism Diabetes Surgical History History of amputation of toe History of appendectomy Hx laparoscopic cholecystectomy Postsurgical percutaneous transluminal coronary angioplasty (PTCA) status Prior to 2006 History of coronary artery bypass graft x 2 2006 Family History Other Family history of premature coronary artery disease Social History Smoking and tobacco/nicotine status: former use of tobacco/nicotine Alcohol intake: current Physical Exam 2 Const: COMMON NORMALS: no acute distress, average body habitus, patient oriented x3, no limitations, healthy appearing, alert and well nourished HENMT: COMMON NORMALS: normocephalic, atraumatic, hearing grossly normal bilaterally, external ears normal, Normal external nose present, moist oral mucous membranes and oropharynx normal HEAD & SCALP: normocephalic and atraumatic NOSE: Normal external nose present EXTERNAL EAR: Yes external ears normal Neck/C-Spine: COMMON NORMALS: no JVD Chest: COMMONS NORMALS: normal inspection of the chest and normal palpation of entire chest wall Resp: COMMON NORMALS: normal respiratory effort, No retractions, No use of accessory muscles and clear to auscultation bilaterally AUSCULTATION: clear to auscultation bilaterally Cardio: COMMON NORMALS: no JVD, regular rate, regular rhythm, S1 normal heart sound present, S2 normal heart sound present, No gallops present (Cardio), No clicks present (Cardio), No murmurs present (Cardio) and No rub (Cardio) R ATE: regular rate RHYTHM: regular rhythm HEART SOUNDS: S1 normal heart sound present and S2 normal heart sound present GI: COMMON NORMALS: Normal to inspection, nondistended, normoactive bowel sounds present, Soft to palpation, non-tender, No hepatosplenomegaly present and no masses PALPATION: Yes Soft to palpation and Yes No hepatosplenomegaly present Back/Pelvis: OTHER: Tenderness with palpation over right thoracic paraspinal musculature, ropey spastic in nature Neuro: COMMON NORMALS: patient oriented x3 SENSORIUM/ORIENTATION: Yes alert Course 2 Vital Signs: Vital signs: Vital Signs Temperature 98.0 F 12/25/23 00:55 Pulse Rate 101 H 12/25/23 03:00 Respiratory Rate 20 H 12/25/23 03:20 Blood Pressure 123/84 12/25/23 02:00 Pulse Oximetry 96 12/25/23 03:00 Oxygen Delivery Me thod Room Air 12/25/23 03:00 MDM - Back Pain/Injury Medical Decision Making Patient presents to the ER with complaints of back pain and also presyncopal like episodes. Patient was worked up in a standard chest pain fashion with serial EKGs serial lab work, chest x-ray, all of which was essentially benign other than patient's ethyl alcohol level was 101, patient's pain was reproducible with palpation over right scapular paraspinal musculature. It is thought that this is the root of the patient's pain. Patient be discharged home. Labs 12/25/23 01:10 12/25/23 01:10 Laboratory Results WBC 6.79 10^3/uL (3.29-11.43) 12/25/23 01:10 RBC 5.69 10^6/uL (3.85-5.65) H 12/25/23 01:10 Hgb 16.60 g/dL (11.27-16.99) 12/25/23 01:10 Hct 48.2 % (37-53) 12/25/23 01:10 MCV 84.7 fl (82-101) 12/25/23 01:10 MCH 29.2 pg (27-33) 12/25/23 01:10 MCHC 34.4 g/dL (30-55) 12/25/23 01:10 RDW 12.0 % (12.1-15.1) L 12/25/23 01:10 Plt Count 274 10^3/cmm (157-399) 12/25/23 01:10 MPV 10.4 fL (7.4-10.4) 12/25/23 01:10 Neut % (Auto) 67.5 % 12/25/23 01:10 Lymph % (Auto) 19.0 % 12/25/23 01:10 Summers % (Auto) 6.9 % 12/25/23 01:10 Eos % (Auto) 3.8 % 12/25/23 01:10 Baso % (Auto) 0.6 % 12/25/23 01:10 Neut # (Auto) 4.58 10^3/uL (1.8-7.7) 12/25/23 01:10 Lymph # (Auto) 1.3 10^3/uL (0.8-4.8) 12/25/23 01:10 Summers # (Auto) 0.5 10^3/uL (0.2-0.9) 12/25/23 01:10 Eos # (Auto) 0.3 10^3/uL (0.0-0.8) 12/25/23 01:10 Baso # (Auto) 0.0 10^3/uL (0.0-0.1) 12/25/23 01:10 Nucleated RBC % (auto) 0 % 12/25/23 01:10 Nucleated RBCs # 0.0 /100WBC 12/25/23 01:10 Sodium 136 mmol/L (136-145) 12/25/23 01:10 Potassium 3.8 mmol/L (3.5-5.1) 12/25/23 01:10 Chloride 96 mmol/L (98-107) L 12/25/23 01:10 Carbon Dioxide 25 mmol/L (22-29) 12/25/23 01:10 Anion Gap 18.8 (5-19) 12/25/23 01:10 BUN 13 mg/dL (8-23) 12/25/23 01:10 Creatinine 0.7 mg/dL (0.7-1.2) 12/25/23 01:10 GFR Calculation 113.5 mL/min (90-130) 12/25/23 01:10 Glucose 379 mg/dL (65-115) H 12/25/23 01:10 Calculated Osmolality 298 mOsm/kg (285-295) H 12/25/23 01:10 Calcium 9.6 mg/dL (8.5-10.5) 12/25/23 01:10 Total Bilirubin 0.9 mg/dL (0.15-1.2) 12/25/23 01:10 AST 11 U/L (0-40) 12/25/23 01:10 ALT 19 U/L (0-41) 12/25/23 01:10 Alkaline Phosphatase 91 U/L (40-130) 12/25/23 01:10 Troponin T Baseline 14 ng/L (0-15) 12/25/23 01:10 Delta Troponin T 1.04 ABS# (0-10) 12/25/23 03:00 NT-Pro-B Natriuret Pep 53 pg/mL (0-125) 12/25/23 01:10 Total Protein 6.6 g/dL (6.6-8.7) 12/25/23 01:10 Albumin 4.1 g/dL (3.5-5.2) 12/25/23 01:10 Globulin 2.5 g/dL (1.3-4.6) 12/25/23 01:10 Ethyl Alcohol 101 mg/dL (0-10) H 12/25/23 01:10 All radiology interpretation(s) finalized by discharge ED provider radiology interpretation(s): Negative Discharge Plan Discharge Patient Disposition: Home Clinical Impression: Right-sided chest wall pain, Acute right-sided thoracic back pain, Alcohol intoxication Condition: Stable Prescriptions: No Action metformin 1,000 mg tablet extended release 24hr PO metformin 500 mg tablet extended release 24 hr 500 mg PO BID carbidopa-levodopa 25-100 mg tablet 1 tab PO TID Qty: 90 5RF (DME) Diabetic shoes with 3 sets of insoles toe filler on the right See Rx Instructions .Route .MEDSUPPLY Qty: 1 0RF Rx Instructions: As directed by the shoe flaquitamadelyn sulfamethoxazole-trimethoprim 800-160 mg tablet PO mupirocin 2 % ointment 1 applic topical BID 14 Days Qty: 22 2RF (DME) OrthoWedge heel shoe to Left and Right Foot See Rx Instructions .Route .MEDSUPPLY Qty: 1 0RF Rx Instructions: As directed J P [employer] (DME) pen needle, diabetic [BD Ultra-Fine Micro Pen Needle] 32 gauge x 1/4 needle See Rx Instructions .ROUTE .MEDSUPPLY Qty: 50 0RF Rx Instructions: As directed (DME) blood-glucose meter [[employer]Touch Glucose Monitoring] Kit See Rx Instructions .Route Qty: 1 0RF Rx Instructions: As directed aspirin 81 mg tablet,delayed release (DR/EC) 81 mg PO EVERY OTHER DAY Discharge Orders: Discharge ED (Routine); Ordered 12/25/23 Ordered By: Sam Fraire Referrals: Ginette Johnson FNP [Primary Care Provider] - 1 week Patient Instructions: Back Pain (ED), Chest Pain - Chest Wall Activity Restrictions/Additional Instructions: Your lab work and chest x-ray in ER was essentially benign. This did not show acute cardiac cause of your pain. Your pain is reproducible with palpation over the paravertebral paraspinal musculature in your thoracic back region. It is thought to be musculoskeletal in nature. Please take [id number] Tylenol and/or Motrin as needed for pain. Please follow-up with your family practice physician for further evaluation and treatment. Coding Level of Care Code ED Head Of It for Freddy Ocampo
[2023-12-25 01:37] LABS: Basophils % 0.6 %; Eosinophils # 0.3 10^3/uL (0.0-0.8); Eosinophils % 3.8 %; Hematocrit 48.2 % (37-53); Lymphocytes # 1.3 10^3/uL (0.8-4.8); Mean Corpuscular HGB Conc 34.4 g/dL (30-55); Mean Corpuscular Hemoglobin 29.2 pg (27-33); Mean Corpuscular Volume 84.7 fl (82-101); Mean Platelet Volume 10.4 fL (7.4-10.4); Monocytes # 0.5 10^3/uL (0.2-0.9); Monocytes % 6.9 %; Neutrophils # 4.58 10^3/uL (1.8-7.7); Neutrophils % 67.5 %; Nucleated Red Blood Cells % 0 %; Platelet Count 274 10^3/cmm (157-399); Red Blood Count 5.69 10^6/uL (3.85-5.65); White Blood Count 6.79 10^3/uL (3.29-11.43)
[2023-12-25] MEDS: ketorolac 30 mg/mL INJ IVP (01:44)
[2023-12-25 01:46] VITALS: BP 123/84; PULSE 106; RESP 18; O2SAT 95
[2023-12-25 01:51] LABS: Troponin(5th) Baseline 14 ng/L (0-15)
[2023-12-25 01:53] LABS: Alanine Aminotransferase 19 U/L (0-41); Albumin Level 4.1 g/dL (3.5-5.2); Alcohol Level 101 mg/dL (0-10); Alkaline Phosphatase 91 U/L (40-130); Anion Gap 18.8 (5-19); Aspartate Amino Transferase 11 U/L (0-40); Blood Urea Nitrogen 13 mg/dL (8-23); Calcium 9.6 mg/dL (8.5-10.5); Carbon Dioxide 25 mmol/L (22-29); Chloride 96 mmol/L (98-107); Creatinine Clr Calc Pharmacy 123.8342; Globulin 2.5 g/dL (1.3-4.6); Glomerular Filtration Rate 113.5 mL/min (90-130); Glucose 379 mg/dL (65-115); Osmolality Calculated 298 mOsm/kg (285-295); Potassium 3.8 mmol/L (3.5-5.1); Sodium 136 mmol/L (136-145); Total Bilirubin 0.9 mg/dL (0.15-1.2); Total Protein 6.6 g/dL (6.6-8.7)
[2023-12-25 02:00] VITALS: BP 123/84; PULSE 102; RESP 18; O2SAT 97
[2023-12-25 02:00] LABS: NT Pro B Type Natriuretic Pept 53 pg/mL (0-125)
[2023-12-25 03:00] VITALS: PULSE 101; O2SAT 96
[2023-12-25 03:20] VITALS: RESP 20
[2023-12-25] MEDS: morphine 4 mg/mL SDV 1 mL IVP (03:20)
--- NOTE | 2023-12-25 03:31 | ECG_ITS ---
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 Measurements Intervals [place] Rate: 99 P: 57 DE: 122 QRS: 82 QRSD: 97 T: 66 QT: 349 QTc: 448 Interpretive Statements SINUS RHYTHM POSSIBLE LEFT ATRIAL ENLARGEMENT [-0.1mV P-WAVE IN V1/V2] NONSPECIFIC ST & T-WAVE ABNORMALITY Compared to ECG 12/25/2023 01:04:49 Sinus tachycardia no longer present T-wave abnormality still present Electronically Signed On 12-25-2023 17:14:20 CDT by Hu Escalante M.D. [id number]
[2023-12-25 03:32] LABS: Troponin 5 2HR 15.04 ng/L (0-15); Troponin 5 2HR Delta 1.04 ABS# (0-10)
[2023-12-25 03:57] VITALS: BP 123/84; PULSE 88; RESP 17; O2SAT 94
== END 2023-12-25 03:59 | disposition home or self-care (01) ==
PROVIDERS: Emergency Provider Emergency Medicine; PCP Nurse Practitioner Family
DX: M54.6 Pain in thoracic spine (principal); R07.89 Other chest pain; F10.129 Alcohol abuse with intoxication, unspecified; Y90.5 Blood alcohol level of 100-119 mg/100 ml; Z79.82 Long term (current) use of aspirin; Z79.84 Long term (current) use of oral hypoglycemic drugs; Z87.891 Personal history of nicotine dependence; E11.42 Type 2 diabetes mellitus with diabetic polyneuropathy; I25.10 Atherosclerotic heart disease of native coronary artery without angina pectoris; I10 Essential (primary) hypertension; E78.5 Hyperlipidemia, unspecified; Z95.1 Presence of aortocoronary bypass graft
CPT/HCPCS: 71045; 80053; 80307; 83880; 84484; 85025; 93005; 96374; 96375; 99285; J1885; J2270

== ENCOUNTER 2024-04-19 00:07 | Emergency (ER) | payer MEDICARE, MEDICAID, SELFPAY ==
[2024-04-19 00:08] VITALS: BP 153/90; PULSE 91; RESP 18; TEMP 36.7; O2SAT 95; BMI 25.7
--- NOTE | 2024-04-19 00:40 | XRR_ITS ---
PROCEDURE INFORMATION: Exam: XR Lumbosacral Spine Exam date and time: 04/19/2024 12:48 AM Age: 63 years old Clinical indication: Prior surgery; Surgery date: 6+ months; Surgery type: Cabg. Gb. Appy. Patient HX: EMS arrival for low back pain. No injury. History of chronic low back pain. ; Additional info: Lumbar back pain TECHNIQUE: Imaging protocol: Radiologic exam of the lumbosacral spine. Views: 2 or 3 views. COMPARISON: No relevant prior studies available. FINDINGS: Bones/joints: No acute fracture or traumatic listhesis. Mild anterior wedging at T2 appears chronic and may be physiologic. Multilevel degenerative disc disease and facet arthrosis. Soft tissues: Unremarkable. Vasculature: Abdominal aortic calcification. XR/XR lumbar spine 2-3V* 01100 IMPRESSION: Multilevel degenerative changes within lumbar spine with no acute bony findings.
[2024-04-19] MEDS: ondansetron 4 MG Tablet PO (01:12)
[2024-04-19 01:14] VITALS: RESP 16; O2SAT 93
[2024-04-19] MEDS: morphine 4 mg/mL SDV 1 mL IM (01:14)
[2024-04-19 01:16] VITALS: RESP 18; O2SAT 93
--- NOTE | 2024-04-19 01:47 | ED_ITS ---
HPI - Back Pain/Injury 2 General: Chief Complaint: Back Pain/Injury Stated Complaint: BACK PAIN Time Seen by Provider: 04/19/24 00:27 History of Present Illness: 63-year-old male who says he fell a lizbeth h and a half or so ago, injuring his back and his neck. They told him he may have had a fracture in his low back at [facility] he says. He was admitted there for sepsis it seems at that point. He complains of low back pain tonight. It is right-sided, and in the lower lumbar area. It is nonradicular. It is worse with movement. He could not sleep tonight, and took 2 shots of [place] whiskey to try to help him rest which did not seem to improve the pain. At that point, he called an ambulance to come in for evaluation. Related Data Home Medications Medication Instructions Recorded Confirmed aspirin 81 mg tablet,delayed 81 mg PO EVERY OTHER DAY 04/29/23 10/30/23 release metformin 1,000 mg tablet,extended mg PO 09/09/23 10/30/23 release 24hr (osmotic) metformin 500 mg tablet,extended 500 mg PO BID 09/09/23 10/30/23 release 24 hr sulfamethoxazole 800 tab PO 10/09/23 10/30/23 mg-trimethoprim 160 mg tablet Previous Rx's Medication Instructions Recorded OrthoWedge heel shoe to Left and #1 ea 11/15/22 Right Foot blood-glucose meter (CareTouch #1 ea 11/19/22 Glucose Monitoring System kit) pen needle, diabetic 32 gauge x #50 ea 11/19/2208/07 (BD Ultra-Fine Micro Pen Needle) carbidopa 25 mg-levodopa 100 mg 1 tab PO TID #90 tabs 09/09/23 tablet Diabetic shoes with 3 sets of #1 ea 09/11/23 insoles toe filler on the right mupirocin 2 % topical ointment 1 applic topical BID 2 weeks #22 10/09/23 grams hydrocodone 5 mg-acetaminophen 325 1 tab PO Q8H PRN pain #7 tabs 04/19/24 mg tablet ketorolac 10 mg tablet 10 mg PO TID PRN pain #10 tabs 04/19/24 ondansetron 4 mg disintegrating 4 mg PO Q6H PRN nausea and 09/16/24 tablet vomiting #14 tabs Allergies Allergy/AdvReac Type Severity Reaction Status Date / Time No Known Allergies Allergy Verified 04/19/24 00:15 PFSH ED 2 PFSH: Medical History Diabetic peripheral neuropathy associated with type 2 diabetes mellitus Psoriasis Hernia Chronic back pain CAD (coronary artery disease) Hypertension Hyperlipidemia History of alcoholism Diabetes Surgical History History of amputation of toe History of appendectomy Hx laparoscopic cholecystectomy Postsurgical percutaneous transluminal coronary angioplasty (PTCA) status Prior to 2006 History of coronary artery bypass graft x 2 2006 Family History Other Family history of premature coronary artery disease Social History Smoking and tobacco/nicotine status: former use of tobacco/nicotine Alcohol intake: current Physical Exam 2 Const: COMMON NORMALS: no acute distress GENERAL APPEARANCE: cooperative; not ill appearing ORIENTATION/CONSCIOUSNESS: Yes awake, Yes oriented to person and Yes oriented to place HENMT: COMMON NORMALS: normocephalic and atraumatic HEAD & SCALP: n ormocephalic and atraumatic FACE & SINUS: normal facial exam Eye: COMMON NORMALS: EOMs intact bilaterally Neck/C-Spine: COMMON NORMALS: full ROM GENERAL: Yes trachea midline Resp: COMMON NORMALS: normal respiratory effort, No use of accessory muscles and clear to auscultation bilaterally AUSCULTATION: clear to auscultation bilaterally Cardio: COMMON NORMALS: regular rate, regular rhythm and Peripheral pulses 2+ throughout RATE: regular rate RHYTHM: regular rhythm PERIPHERAL PULSES: Peripheral pulses 2+ throughout GI: COMMON NORMALS: Soft to palpation PALPATION: Yes Soft to palpation : COMMON NORMALS: Yes no CVA tenderness BLADDER/KIDNEY EXAM: Yes no CVA tenderness Back/Pelvis: COMMON NORMALS: no CVA tenderness and thoracic and lumbar spine normal to inspection LUMBAR SPINE/LOWER BACK: Yes lumbar spinal tenderness Lumbar spinal tenderness location: L5 (On the right only), No paraspinal muscle tenderness and Yes straight leg raise negative bilaterally Extremity: NARRATIVE EXTREMITY EXAM: Right second toe chronic appearing redness, swelling, ulceration to the plantar toe pad. No streaking up the foot. No drainage. Neuro: SENSORIUM/ORIENTATION: Yes oriented to person and Yes oriented to place Course 2 Vital Signs: Vital signs: Vital Signs Temperature 98.0 F 04/19/24 00:08 Pulse Rate 85 04/19/24 06:57 Respiratory Rate 18 04/19/24 06:57 Blood Pressure 141/89 04/19/24 06:57 Pulse Oximetry 91 04/19/24 06:57 Oxygen Delivery Me thod Room Air 04/19/24 05:06 MDM - Back Pain/Injury Medical Decision Making Vitals are stable. The patient is afebrile. His blood glucose is 280. Other laboratory is not remarkable in terms of CBC or CMP. Mild elevation in liver enzymes, normal bilirubin, mild lipase elevation at 209. X-ray of the lumbar spine shows multilevel degenerative changes. Abdominal CT shows mild fullness through the pancreas consistent with potential mild pancreatitis. He has a compression fracture at T12 of undetermined acuity. Home a liquid diet, short course of pain medication close outpatient follow-up. Return for worsening symptoms. Labs 04/19/24 02:58 04/19/24 02:58 Radiology Impressions Lumbar Spine X-Ray 04/19/24 00:40 IMPRESSION: Multilevel degenerative changes within lumbar spine with no acute bony findings. Abdomen/Pelvis CT 04/19/24 03:34 IMPRESSION: 1. Mild fullness throughout the pancreas consistent with the clinical presentation of mild pancreatitis. However, there are no acute peripancreatic fluid collections. 2. A 4 mm nonobstructive calculus in the left kidney. 3. A 12 mm indeterminate hypodensity in the right kidney for which non emergent MRI of the abdomen is recommended. 4. There is mild diverticulosis of the distal colon without acute diverticulitis. 5. Mild superior endplate compression fracture of T12 at the site of Schmorl's nodes, of unknown acuity without retropulsion. MRI may be helpful in determining the age of this fracture, clinically indicated. THIS REPORT CONTAINS FINDINGS THAT MAY BE CRITICAL TO PATIENT CARE. The findings were verbally communicated via telephone conference with GURVINDER LARES at 6:05 AM CDT on 04/19/2024. The findings were acknowledged and understood. COMMENTS: Consistent with the [place]'s Incidental Findings Committee white paper (J Am Kassandra Radiol 2018): Any incidental renal lesion less than 1 cm or classified as too small to characterize, or any incidental cystic renal lesion characterized as simple-appearing, is likely benign. No follow-up imaging is recommended for these lesions per consensus recommendations based on imaging criteria. Laboratory Results WBC 8.61 10^3/uL (3.29-11.43) 04/19/24 02:58 RBC 5.15 10^6/uL (3.85-5.65) 04/19/24 02:58 Hgb 15.10 g/dL (11.27-16.99) 04/19/24 02:58 Hct 43.5 % (37-53) 04/19/24 02:58 MCV 84.5 fl (82-101) 04/19/24 02:58 MCH 29.3 pg (27-33) 04/19/24 02:58 MCHC 34.7 g/dL (30-55) 04/19/24 02:58 RDW 11.9 % (12.1-15.1) L 04/19/24 02:58 Plt Count 255 10^3/cmm (157-399) 04/19/24 02:58 MPV 9.9 fL (7.4-10.4) 04/19/24 02:58 Neut % (Auto) 69.8 % 04/19/24 02:58 Lymph % (Auto) 17.7 % 04/19/24 02:58 Mellette % (Auto) 7.3 % 04/19/24 02:58 Eos % (Auto) 3.5 % 04/19/24 02:58 Baso % (Auto) 0.2 % 04/19/24 02:58 Neut # (Auto) 6.01 10^3/uL (1.8-7.7) 04/19/24 02:58 Lymph # (Auto) 1.5 10^3/uL (0.8-4.8) 04/19/24 02:58 Mellette # (Auto) 0.6 10^3/uL (0.2-0.9) 04/19/24 02:58 Eos # (Auto) 0.3 10^3/uL (0.0-0.8) 04/19/24 02:58 Baso # (Auto) 0.0 10^3/uL (0.0-0.1) 04/19/24 02:58 Nucleated RBC % (auto) 0 % 04/19/24 02:58 Nucleated RBCs # 0.0 /100WBC 04/19/24 02:58 Sodium 136 mmol/L (136-145) 04/19/24 02:58 Potassium 3.6 mmol/L (3.5-5.1) 04/19/24 02:58 Chloride 97 mmol/L (98-107) L 04/19/24 02:58 Carbon Dioxide 26 mmol/L (22-29) 04/19/24 02:58 Anion Gap 16.6 (5-19) 04/19/24 02:58 BUN 11 mg/dL (8-23) 04/19/24 02:58 Creatinine 0.6 mg/dL (0.7-1.2) L 04/19/24 02:58 GFR Calculation 135.2 mL/min (90-130) H 04/19/24 02:58 Glucose 280 mg/dL (65-115) H 04/19/24 02:58 Calculated Osmolality 291 mOsm/kg (285-295) 04/19/24 02:58 Calcium 9.0 mg/dL (8.5-10.5) 04/19/24 02:58 Total Bilirubin 1.2 mg/dL (0.15-1.2) 04/19/24 02:58 AST 92 U/L (0-40) H 04/19/24 02:58 ALT 46 U/L (0-41) H 04/19/24 02:58 Alkaline Phosphatase 120 U/L (40-130) 04/19/24 02:58 C-Reactive Protein 3.0 mg/L (0.0-4.9) 04/19/24 02:58 Total Protein 6.8 g/dL (6.6-8.7) 04/19/24 02:58 Albumin 3.9 g/dL (3.5-5.2) 04/19/24 02:58 Globulin 2.9 g/dL (1.3-4.6) 04/19/24 02:58 Lipase 209 U/L (13-60) H 04/19/24 02:58 Urine Color Yellow (Yellow) 04/19/24 02:34 Urine Appearance Clear (CLEAR) 04/19/24 02:34 Urine pH 5 (5-7) 04/19/24 02:34 Ur Specific Archer 1.030 (1.005-1.030) 04/19/24 02:34 Urine Protein 3+ (Negative) H 04/19/24 02:34 Urine Glucose (UA) 4+ (Normal) H 04/19/24 02:34 Urine Ketones 2+ (Negative) H 04/19/24 02:34 Urine Blood Neg (Negative) 04/19/24 02:34 Urine Nitrate Negative (Negative) 04/19/24 02:34 Urine Bilirubin Neg (Negative) 04/19/24 02:34 Urine Urobilinogen Norm mg/dL (Negative) 04/19/24 02:34 Ur Leukocyte Esterase Negative (Negative) 04/19/24 02:34 Urine RBC Rare /hpf (0-2) 04/19/24 02:34 Urine WBC Rare /hpf (0-5) 04/19/24 02:34 Ur Squamous Epith Cells Rare /hpf (0-5) 04/19/24 02:34 Calcium Oxalate Crystal 0-4 /hpf H 04/19/24 02:34 Amorphous Sediment Not Reportable 04/19/24 02:34 Urine Bacteria Trace /hpf (NONE) 04/19/24 02:34 Urine Mucus 2+ /hpf 04/19/24 02:34 All radiology interpretation(s) finalized by discharge Discharge Plan Discharge Patient Disposition: Home Clinical Impression: Uncontrolled diabetes mellitus, Acute pancreatitis Condition: Stable Prescriptions: New hydrocodone-acetaminophen 5-325 mg tablet 1 tab PO Q8H PRN (Reason: pain) Qty: 7 0RF ketorolac 10 mg tablet 10 mg PO TID PRN (Reason: pain) Qty: 10 0RF ondansetron 4 mg tablet,disintegrating 4 mg PO Q6H PRN (Reason: nausea and vomiting) Qty: 14 0RF No Action metformin 1,000 mg tablet extended release 24hr PO metformin 500 mg tablet extended release 24 hr 500 mg PO BID carbidopa-levodopa 25-100 mg tablet 1 tab PO TID Qty: 90 5RF (DME) Diabetic shoes with 3 sets of insoles toe filler on the right See Rx Instructions .Route .MEDSUPPLY Qty: 1 0RF Rx Instructions: As directed by the shoe allison sulfamethoxazole-trimethoprim 800-160 mg tablet PO mupirocin 2 % ointment 1 applic topical BID 14 Days Qty: 22 2RF (DME) OrthoWedge heel shoe to Left and Right Foot See Rx Instructions .Route .MEDSUPPLY Qty: 1 0RF Rx Instructions: As directed [employer] (DME) pen needle, diabetic [BD Ultra-Fine Micro Pen Needle] 32 gauge x 1/4 needle See Rx Instructions .ROUTE .MEDSUPPLY Qty: 50 0RF Rx Instructions: As directed (DME) blood-glucose meter [XenetaTouch Glucose Monitoring] Kit See Rx Instructions .Route Qty: 1 0RF Rx Instructions: As directed aspirin 81 mg tablet,delayed release (DR/EC) 81 mg PO EVERY OTHER DAY Discharge Orders: Discharge ED (Routine); Ordered 04/19/24 Ordered By: Gurvinder Lares Referrals: Ginette Johnson FNP [Primary Care Provider] - 1-3 days Patient Instructions: Pancreatitis (ED), Vertebral Compression Fracture (ED), Opioid Safety, Pain Management Activity Restrictions/Additional Instructions: Follow a liquid diet for the next 48 hours. As your pain improves, you may increase your diet. Avoid alcohol, as it can worsen pancreatitis symptoms. Medication as directed for significant pain. See your doctor this week. Return for vomiting liquids, fever, other concerning symptoms. Coding Level of Care Code ED Dining Room Host/Hostess for Freddy Ocampo
[2024-04-19 02:59] LABS: Bacteria Urine TRACE /hpf; Bilirubin Urine Neg (Negative); Blood Urine Neg (Negative); Calcium Oxalate Crystals Urine 0-4 /hpf; Glucose Urine UA 4+ (Normal); Ketones Urine 2+ (Negative); Leukocyte Esterase Urine Negative (Negative); Mucus Urine 2+ /hpf; Nitrate Urine Negative (Negative); Protein Urine 3+ (Negative); RBC Urine RARE /hpf (0-2); Squamous Epithelial Cell Urine RARE /hpf (0-5); Urine Appearance Clear (CLEAR); Urine Color Yellow (Yellow); Urobilinogen Urine Norm (Negative); WBC Urine RARE /hpf (0-5); pH Urine 5 (5-7)
[2024-04-19 03:04] VITALS: BP 136/81; PULSE 86; RESP 18; O2SAT 97
[2024-04-19] MEDS: ketorolac 30 mg/mL INJ IVP (03:08)
[2024-04-19 03:11] LABS: Basophils % 0.2 %; Eosinophils # 0.3 10^3/uL (0.0-0.8); Eosinophils % 3.5 %; Hematocrit 43.5 % (37-53); Lymphocytes # 1.5 10^3/uL (0.8-4.8); Lymphocytes % 17.7 %; Mean Corpuscular HGB Conc 34.7 g/dL (30-55); Mean Corpuscular Hemoglobin 29.3 pg (27-33); Mean Corpuscular Volume 84.5 fl (82-101); Mean Platelet Volume 9.9 fL (7.4-10.4); Monocytes # 0.6 10^3/uL (0.2-0.9); Monocytes % 7.3 %; Neutrophils # 6.01 10^3/uL (1.8-7.7); Neutrophils % 69.8 %; Nucleated Red Blood Cells % 0 %; Platelet Count 255 10^3/cmm (157-399); Red Blood Count 5.15 10^6/uL (3.85-5.65); Red Cell Distribution Width 11.9 % (12.1-15.1); White Blood Count 8.61 10^3/uL (3.29-11.43)
[2024-04-19 03:26] LABS: Alanine Aminotransferase 46 U/L (0-41); Albumin Level 3.9 g/dL (3.5-5.2); Alkaline Phosphatase 120 U/L (40-130); Anion Gap 16.6 (5-19); Aspartate Amino Transferase 92 U/L (0-40); Blood Urea Nitrogen 11 mg/dL (8-23); Carbon Dioxide 26 mmol/L (22-29); Chloride 97 mmol/L (98-107); Globulin 2.9 g/dL (1.3-4.6); Glomerular Filtration Rate 135.2 mL/min (90-130); Glucose 280 mg/dL (65-115); Lipase 209 U/L (13-60); Osmolality Calculated 291 mOsm/kg (285-295); Potassium 3.6 mmol/L (3.5-5.1); Sodium 136 mmol/L (136-145); Total Bilirubin 1.2 mg/dL (0.15-1.2); Total Protein 6.8 g/dL (6.6-8.7)
--- NOTE | 2024-04-19 03:34 | CTR_ITS ---
PROCEDURE INFORMATION: Exam: CT Abdomen And Pelvis With Contrast Exam date and time: 04/19/2024 3:40 AM Age: 63 years old Clinical indication: Pain and abnormal findings; Abnormal lab test; Elevated lipase and elevated liver enzymes; Abdominal pain; Generalized; Prior surgery; Surgery date: 6+ months; Surgery type: Cabg. Gb. Appy. Patient HX: Diffuse abd and low back pain with elevated liver enzymes and lipase. ; Additional info: Abd pain. Elevated lipase TECHNIQUE: Imaging protocol: Computed tomography of the abdomen and pelvis with contrast. Radiation optimization: All CT scans at this facility use at least one of these dose optimization techniques: automated exposure control; mA and/or kV adjustment per patient size (includes targeted exams where dose is matched to clinical indication); or iterative reconstruction. Contrast material: OMNI 350; Contrast volume: 100 ml; Contrast route: INTRAVENOUS (IV); COMPARISON: CR (PELVIS, ) 19/04/2024 00:48 RADIATION DOSE METRICS: Total DLP (mGy-cm): 685.49 FINDINGS: Lungs: The visualized lung hernadez show mild bibasilar atelectasis. Liver: No hepatomegaly. There are no enhancing liver masses. Gallbladder and biliary ducts: There has been a cholecystectomy. There is no evidence of biliary ductal dilation. Pancreas: Mild fullness throughout the pancreas consistent with the clinical presentation of pancreatitis. However, there are no acute peripancreatic fluid collections. Spleen: Normal. No splenomegaly. Adrenal glands: Normal. No mass. Kidneys and ureters: No hydronephrosis. In the left kidney, there is a 4 mm nonobstructive calculus. A 12 mm indeterminate hypodensity in the right kidney for which non emergent MRI of the abdomen is recommended. Additional bilateral subcentimeter renal hypodensities, too small to characterize. Stomach and bowel: There is no evidence of small bowel or colonic obstruction. There is mild diverticulosis of the distal colon without acute diverticulitis. Appendix: The appendix is not identified. There are no pericecal inflammatory changes. Intraperitoneal space: No free air. No significant fluid collection. Vasculature: There is moderate atherosclerotic calcification of the abdominal aorta and its branches without aneurysm. Lymph nodes: No enlarged retroperitoneal or mesenteric lymph nodes. Urinary bladder: The bladder shows a normal contour and is free of calcific opacities. Reproductive: Unremarkable as visualized. Bones/joints: Mild superior endplate compression fracture of T12 at the site of Schmorl's nodes, of unknown acuity without retropulsion. Soft tissues: There is a small nonobstructing left inguinal hernia containing adipose tissue. CT/CT abdomen pelvis w con* [id number] IMPRESSION: 1. Mild fullness throughout the pancreas consistent with the clinical presentation of mild pancreatitis. However, there are no acute peripancreatic fluid collections. 2. A 4 mm nonobstructive calculus in the left kidney. 3. A 12 mm indeterminate hypodensity in the right kidney for which non emergent MRI of the abdomen is recommended. 4. There is mild diverticulosis of the distal colon without acute diverticulitis. 5. Mild superior endplate compression fracture of T12 at the site of Schmorl's nodes, of unknown acuity without retropulsion. MRI may be helpful in determining the age of this fracture, clinically indicated. THIS REPORT CONTAINS FINDINGS THAT MAY BE CRITICAL TO PATIENT CARE. The findings were verbally communicated via telephone conference with UMER LARES at 6:05 AM CDT on 04/19/2024. The findings were acknowledged and understood. COMMENTS: Consistent with the [employer] [place] [employer]'s Incidental Findings Committee white paper (J Am Kassandra Radiol 2018): Any incidental renal lesion less than 1 cm or classified as too small to characterize, or any incidental cystic renal lesion characterized as simple-appearing, is likely benign. No follow-up imaging is recommended for these lesions per consensus recommendations based on imaging criteria.
[2024-04-19] MEDS: iohexol 350 mg/mL 500 mL Btl (per mL) IV (03:45)
[2024-04-19 05:06] VITALS: BP 145/84; PULSE 74; O2SAT 91
[2024-04-19 06:57] VITALS: BP 141/89; PULSE 85; RESP 18; O2SAT 91
== END 2024-04-19 06:58 | disposition home or self-care (01) ==
PROVIDERS: Emergency Provider Emergency Medicine; PCP Nurse Practitioner Family
DX: E11.42 Type 2 diabetes mellitus with diabetic polyneuropathy (principal); K85.90 Acute pancreatitis without necrosis or infection, unspecified; Z79.82 Long term (current) use of aspirin; Z79.84 Long term (current) use of oral hypoglycemic drugs; Z87.891 Personal history of nicotine dependence; I25.10 Atherosclerotic heart disease of native coronary artery without angina pectoris; I10 Essential (primary) hypertension; E78.5 Hyperlipidemia, unspecified; Z98.61 Coronary angioplasty status; Z95.1 Presence of aortocoronary bypass graft
CPT/HCPCS: 72100; 74177; 80053; 81001; 83690; 85025; 86140; 96372; 96374; 99285; J1885; J2270; Q0162

== ENCOUNTER 2025-04-26 04:17 | Emergency (ER) | payer OTHER, MEDICAID, SELFPAY ==
[2025-04-26] VITALS (8 sets, daily range): BP systolic 134–152; BP diastolic 78–92; PULSE 73–85; RESP 17–20; TEMP 36.6; O2SAT 93–95; BMI 27.1
--- NOTE | 2025-04-26 04:23 | XRR_ITS ---
PROCEDURE INFORMATION: Exam: XR Abdomen Exam date and time: 04/26/2025 4:29 AM Age: 64 years old Clinical indication: Abdominal pain; Additional info: Constipation TECHNIQUE: Imaging protocol: Radiologic exam of the abdomen. Views: Frontal supine view of the abdomen. 1 View. COMPARISON: CT abdomen pelvis w con* [id number] 04/19/2024 3:40 AM FINDINGS: Lungs: No consolidation in the visualized lung bases. Gastrointestinal tract: Colonic stool burden appears within expected limits. Bowel-gas pattern appears nonobstructive with no air-filled dilated loops of bowel seen. Intraperitoneal space: Surgical clips in the upper abdomen. No gross free intraperitoneal air. Vasculature: Pelvic phleboliths. Bones/joints: There is no acute osseous abnormality. Partially visualized median sternotomy. XR/XR KUB [id number] IMPRESSION: Nonobstructive bowel-gas pattern with colonic stool burden appearing within expected limits.
--- OUTSIDE RECORDS SUMMARY | 2025-04-26 04:24 | XMS_ITS | Encounter Summary ---
Author Organization [facility] Address [address] [place] [address] Care Team Providers Care Quality Control Technician Name Role Phone Primitivo Crowder MD Primary Care Provider [phone] Encounter Details Date Type Department Care Team (Latest Contact Info) Description 05/18/2007 Outpatient Historical 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
--- OUTSIDE RECORDS SUMMARY | 2025-04-26 04:24 | XMS_ITS | Encounter Summary ---
Author Organization [facility] Address [address] [place] [address] Care Team Providers Care Welding Machine Operator Arc Name Role Phone Primitivo Crowder MD Primary Care Provider [phone] Encounter Details Date Type Department Care Team (Latest Contact Info) Description 03/06/2007 Outpatient Historical [facility] [address] [place] [phone] Primitivo Crowder MD [address] [place] [address] Dyspepsia and Other Specified Disorders of Function of Stomach (Primary Dx); Nonspecific Abnormal Results of Liver Function Study; Mixed Hyperlipidemia; Abdominal Pain, Unspecified Site Social History Tobacco Use Types Packs/Day Years Used Date Smoking Tobacco: Never Assessed Sex and Gender Information Value Date Recorded Sex Assigned at Not on file 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
--- OUTSIDE RECORDS SUMMARY | 2025-04-26 04:24 | XMS_ITS | Encounter Summary ---
Author Organization [facility] Address [address] [place] [address] Care Team Providers Care Bevel Face Stoner And Polisher Name Role Phone Primitivo Crowder MD Primary Care Provider [phone] Encounter Details Date Type Department Care Team (Latest Contact Info) Description 10/04/1998 Outpatient Historical [facility] [address] [phone] Primitivo Crowder MD [address] [place] [phone] Pure hyperglyceridemia (Primary Dx); Unspecified essential hypertension Social History Tobacco Use Types Packs/Day Years Used Date Smoking Tobacco: Never Assessed Sex and Gender Information Value Date Recorded Sex Assigned at Not on file 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
--- OUTSIDE RECORDS SUMMARY | 2025-04-26 04:24 | XMS_ITS | Encounter Summary ---
Author Organization [facility] Address [address] [place] [address] Care Team Providers Care Hand Laster Name Role Phone Primitivo Crowder MD Primary Care Provider [phone] Encounter Details Date Type Department Care Team (Latest Contact Info) Description 02/02/2007 Outpatient Historical [facility] [address] [phone] Primitivo Crowder MD [address] [place] [phone] Cardiomyopathy in Other Diseases Classified Elsewhere (CMS/HCC) (Primary Dx); Abdominal Pain, Unspecified Site; Hypercalcemia; Unspecified Chronic Ischemic Heart Disease Social History Tobacco Use Types Packs/Day Years Used Date Smoking Tobacco: Never Assessed Sex and Gender Information Value Date Recorded Sex Assigned at Not on file 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 Gender Identity Not on file Sexual Orientation Not on file documented as of this encounter Plan of Treatment Not on file documented as of this encounter Visit Diagnoses Diagnosis Cardiomyopathy in other diseases classified elsewhere (CMS/HCC)- Primary Cardiomyopathy in other diseases classified elsewhere Abdominal pain, unspecified site Hypercalcemia Chronic ischemic heart disease, unspecified documented in this encounter Care Teams Hand Laster Relationship Specialty Start Date End Date Primitivo Crowder MD [address] [phone] PCP - General Family Practice 05/20/14 documented as of this encounter
--- OUTSIDE RECORDS SUMMARY | 2025-04-26 04:24 | XMS_ITS | Encounter Summary ---
Author Organization [facility] Address [address] [place] [address] Care Team Providers Care Warehouse Sorter Name Role Phone Primitivo Crowder MD Primary Care Provider [phone] Encounter Details Date Type Department Care Team (Latest Contact Info) Description 04/18/1998 Outpatient Historical [address] [phone] Primitivo Crowder MD [address] [place] [phone] Acute upper respiratory infections of unspecified site (Primary Dx) Social History Tobacco Use Types Packs/Day Years Used Date Smoking Tobacco: Never Assessed Sex and Gender Information Value Date Recorded Sex Assigned at Not on file 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
--- OUTSIDE RECORDS SUMMARY | 2025-04-26 04:24 | XMS_ITS | Encounter Summary ---
Author Organization [facility] Address [address] [place] [address] Care Team Providers Care Mender Hand Name Role Phone Primitivo Crowder MD Primary Care Provider [phone] Encounter Details Date Type Department Care Team (Late st Contact Info) Description 08/28/2007 Emergency [facility] Emergency Department [address] [place] [phone] Ed, Physician NO ADDRESS ON FILE Cheko Renteria MD NO ADDRESS ON FILE Social History Tobacco Use Types Packs/Day Years Used Date Smoking Tobacco: Never Assessed Sex and Gender Information Value Date Recorded Sex Assigned at Not on file Legal Sex Male 4:47 AM ENGRAVER HAND SOFT METALS Gender Identity Not on file Sexual Orientation Not on file documented as of this encounter Plan of Treatment Not on file documented as of this encounter Procedures Procedure Name Priority Date/Time Associated Diagnosis Comments CARDIAC ENZYMES Routine 08/28/2007 3:17 PM ENGRAVER HAND SOFT METALS CBC WITH DIFFERENTIAL Routine 08/28/2007 3:17 PM ENGRAVER HAND SOFT METALS PTT Routine 08/28/2007 3:17 PM ENGRAVER HAND SOFT METALS PROTIME-INR Routine 08/28/2007 3:17 PM ENGRAVER HAND SOFT METALS TSH Routine 08/28/2007 3:17 PM ENGRAVER HAND SOFT METALS BASIC METABOLIC PANEL Routine 08/28/2007 3:17 PM ENGRAVER HAND SOFT METALS documented in this encounter Results * TSH (08/28/2007 3:17 PM ENGRAVER HAND SOFT METALS) TSH 2.120 0.350 - 5.500 uIU/ml INTERFACE SYSTEM 08/28/2007 3:17 PM ENGRAVER HAND SOFT METALS Cheko Renteria MD CHEMISTRY ORDERABLES Edited Performing Organization Address City/[facility] Co de Phone Number INTERFACE SYSTEM Refer to clinic/hospital department * (ABNORMAL) CBC WITH DIFFERENTIAL (08/28/2007 3:17 PM ENGRAVER HAND SOFT METALS) WBC 13.3(H) 4.5 - 11.0 K/ul INTERFACE SYSTEM RBC 4.52(L) 4.60 - 6.20 Mil/ul INTERFACE SYSTEM HEMOGLOBIN 13.0(L) 14.0 - 18.0 g/dL INTERFACE SYSTEM HEMATOCRIT 39.6(L) 41.0 - 53.0 % INTERFACE SYSTEM MCV 87.6 84.0 - 103.0 Fl INTERFACE SYSTEM MCH 28.8 27.0 - 34.0 pg INTERFACE SYSTEM MCHC 32.8 30.0 - 35.0 g/dL INTERFACE SYSTEM RDW 12.3 11.0 - 14.5 % INTERFACE SYSTEM PLATELETS 527(H) 140 - 440 K/ul INTERFACE SYSTEM MPV 10.2 8.9 - 12.8 Fl INTERFACE SYSTEM NEUTROPHILS 74.6 42.2 - 75.2 % INTERFACE SYSTEM LYMPHOCYTES 16.5(L) 24.0 - 44.0 % INTERFACE SYSTEM MONOCYTES 5.5 2.0 - 10.0 % INTERFACE SYSTEM EOSINOPHILS 3.1 0.0 - 7.0 % INTERFACE SYSTEM BASOPHILS 0.3 0.0 - 1.0 % INTERFACE SYSTEM NEUTROPHIL ABSOLUTE 9.9(H) 2.0 - 8.0 K/ul INTERFACE SYSTEM LYMPHOCYTE ABSOLUTE 2.2 1.2 - 4.0 K/ul INTERFACE SYSTEM MONOCYTE ABSOLUTE 0.7(H) 0.1 - 0.6 K/ul INTERFACE SYSTEM EOSINOPHIL ABSOLUTE 0.4 0.0 - 0.7 K/ul INTERFACE SYSTEM BASOPHILS ABSOLUTE 0.0 0.0 - 0.2 K/ul INTERFACE SYSTEM 08/28/2007 3:17 PM ENGRAVER HAND SOFT METALS Cheko Renteria MD HEMATOLOGY ORDERABLES Edited Performing Organization Address City/[facility] Co de Phone Number INTERFACE SYSTEM Refer to clinic/hospital department * PTT (08/28/2007 3:17 PM ENGRAVER HAND SOFT METALS) PTT 27.6 21.6 - 35.6 Secs INTERFACE SYSTEM Comment: Therapeutic Range: Hi-level PE/DVT heparin protocol 80.1 -95.0 sec Lo-level PE/DVT heparin protocol 67.1 - 80.0 sec Cardiac Heparin Protocol 67.1 - 85.0 sec Neuro Heparin Protocol 67.1 - 80.0 sec As of 07/10/2006 note change in APTT Normal Range. 08/28/2007 3:17 PM ENGRAVER HAND SOFT METALS Cheko Renteria MD HEMATOLOGY ORDERABLES Edited Performing Organization Address [facility] Phone Number INTERFACE SYSTEM Refer to clinic/hospital department * PROTIME-INR (08/28/2007 3:17 PM ENGRAVER HAND SOFT METALS) PROTIME 14.1 12.8 - 15.8 Secs INTERFACE SYSTEM Comment: As of 2007 note change in normal range. INR 1.0 INTERFACE SYSTEM Comment: Expected Values for INR: DVT/PE Goal INR 2.5; range 2.0 - 3.0 Valve Replacement Tissue Goal INR 2.5; range 2.0 - 3.0 Mechanical Goal INR 3.0; range 2.5 - 3.5 POST-SD Goal INR 2.5; range 2.0 - 3.0 or Goal 3.0; range 2.5 - 3.5 Atrial Fibrillation Goal INR 2.5; range 2.0 - 3.0 Ischemic Stroke Goal INR 2.5; range 2.0 - 3.0 For additional information see Guidelines for Anticoagulation available from the pharmacy Nae Nguyen Pharm D. 08/28/2007 3:17 PM ENGRAVER HAND SOFT METALS Result [facility] us Cheko Renteria MD HEMATOLOGY ORDERABLES Edited Performing Organization Address [facility] Phone Number INTERFACE SYSTEM Refer to clinic/hospital department * (ABNORMAL) BASIC METABOLIC PANEL (08/28/2007 3:17 PM ENGRAVER HAND SOFT METALS) GLUCOSE 113(H) 70 - 110 mg/dL INTERFACE SYSTEM BUN 14 9 - 20 mg/dL INTERFACE SYSTEM CREATININE 1.0 0.7 - 1.5 mg/dL INTERFACE SYSTEM SODIUM 140 136 - 145 mEq/L INTERFACE SYSTEM POTASSIUM 3.7 3.5 - 5.0 mEq/L INTERFACE SYSTEM CHLORIDE 98 95 - 110 mEq/L INTERFACE SYSTEM CO2 31 22 - 32 mmol/l INTERFACE SYSTEM CALCIUM 10.0 8.4 - 10.5 mg/dL INTERFACE SYSTEM ANION GAP 15 9 - 20 mEq/L INTERFACE SYSTEM OSMOLALITY, CALCULATED 289 275 - 295 mOsm/Kg INTERFACE SYSTEM 08/28/2007 3:17 PM ENGRAVER HAND SOFT METALS Cheko Renteria MD CHEMISTRY ORDERABLES Edited INTERFACE SYSTEM Refer to clinic/hospital department * CARDIAC ENZYMES (08/28/2007 3:17 PM ENGRAVER HAND SOFT METALS) TROPONIN I <0.1 0.0 - 1.3 ng/mL INTERFACE SYSTEM Comment: As of 06 the Troponin Reference Range has changed from 0.0-1.5 ng/ml to 0.0- 1.3 ng/ml due to a change in testing methodology. CKMB 0.9 0.0 - 5.0 ng/mL INTERFACE SYSTEM 08/28/2007 3:17 PM ENGRAVER HAND SOFT METALS Cheko Renteria MD CHEMISTRY ORDERABLES Edited INTERFACE SYSTEM Refer to clinic/hospital department documented in this encounter Visit Diagnoses Not on filedocumented in this encounter Care Teams Mender Hand Relationship Specialty Start Date End Date Primitivo Crowder MD [address] [place] [address] PCP - General Family Practice 05/20/14 documented as of this encounter
--- OUTSIDE RECORDS SUMMARY | 2025-04-26 04:24 | XMS_ITS | Encounter Summary ---
Author Organization [facility] Address [address] [place] [address] Care Team Providers Care Cartography Teacher Name Role Phone Primitivo Crowder MD Primary Care Provider [phone] Encounter Details Date Type Department Care Team (Late st Contact Info) Description 07/21/2007 Outpatient Historical [facility] Ed, Physician NO ADDRESS ON FILE Indy Bentley MD [address] [place] [phone] William Ramiers MD [address] [address] [place] [address] Intermediate Coronary Syndrome (CMS/HCC); Coronary Atherosclerosis of [place] Coronary Artery; Unspecified Essential Hypertension; Other and Unspecified Hyperlipidemia; Pure Hypercholesterolemia; DM w/o Complication Type II (CMS/HCC); Tobacco Use Disorder; Other Psoriasis; Nondependent Alcohol Abuse, Unspecified Drunkenness; Postsurgical Percutaneous Transluminal Coronary Angioplasty Status Social History Tobacco Use Types Packs/Day Years Used Date Smoking Tobacco: Never Assessed Sex and Gender Information Value Date Recorded Sex Assigned at Not on file Legal Sex Male 4:47 AM ROUTE SUPERVISOR Gender Identity Not on file Sexual Orientation Not on file documented as of this encounter Plan of Treatment Not on file documented as of this encounter Procedures Procedure Name Priority Date/Time Associated Diagnosis Comments LIPID PANEL Routine 07/22/2007 5:53 AM ROUTE SUPERVISOR COMPREHENSIVE METABOLIC PANEL Routine 07/22/2007 5:53 AM ROUTE SUPERVISOR CARDIAC ENZYMES Routine 07/22/2007 1:30 AM ROUTE SUPERVISOR CARDIAC ENZYMES Routine 07/21/2007 6:17 PM ROUTE SUPERVISOR LIPASE Routine 07/21/2007 6:17 PM ROUTE SUPERVISOR AMYLASE Routine 07/21/2007 6:17 PM ROUTE SUPERVISOR CARDIAC ENZYMES Routine 07/21/2007 12:32 PM ROUTE SUPERVISOR CBC WITH DIFFERENTIAL Routine 07/21/2007 12:32 PM ROUTE SUPERVISOR PTT Routine 07/21/2007 12:32 PM ROUTE SUPERVISOR PROTIME-INR Routine 07/21/2007 12:32 PM ROUTE SUPERVISOR BASIC METABOLIC PANEL Routine 07/21/2007 12:32 PM ROUTE SUPERVISOR documented in this encounter Results * (ABNORMAL) LIPID PANEL (07/22/2007 5:53 AM ROUTE SUPERVISOR) CHOLESTEROL 231(H) 75 - 200 mg/dL INTERFACE SYSTEM HDL 26(L) 40 - 60 mg/dL INTERFACE SYSTEM CALCULATED LDL CHOLESTEROL see comment 0 - 130 mg/dL INTERFACE SYSTEM Comment:Triglycerides >400 m g/dl; LDL calculation invalid TRIGLYCERIDE 764(H) 0 - 179 mg/dL INTERFACE SYSTEM CALCULATED TOTAL CHOLESTEROL TO HDL RATIO 8.88(H) 3.43 - 4.97 INTERFACE SYSTEM 07/22/2007 5:53 AM ROUTE SUPERVISOR us William Ramires MD CHEMISTRY ORDERABLES Edited INTERFACE SYSTEM Refer to clinic/hospital department * (ABNORMAL) COMPREHENSIVE METABOLIC PANEL (07/22/2007 5:53 AM ROUTE SUPERVISOR) GLUCOSE 105 70 - 110 mg/dL INTERFACE SYSTEM BUN 14 9 - 20 mg/dL INTERFACE SYSTEM CREATININE 0.8 0.7 - 1.5 mg/dL INTERFACE SYSTEM SODIUM 141 136 - 145 mEq/L INTERFACE SYSTEM POTASSIUM 4.1 3.5 - 5.0 mEq/L INTERFACE SYSTEM CHLORIDE 107 95 - 110 mEq/L INTERFACE SYSTEM CO2 25 22 - 32 mmol/l INTERFACE SYSTEM CALCIUM 9.1 8.4 - 10.5 mg/dL INTERFACE SYSTEM TOTAL PROTEIN 6.5 6.3 - 8.2 g/dL INTERFACE SYSTEM ALBUMIN 4.0 3.5 - 5.0 g/dL INTERFACE SYSTEM ALKALINE PHOSPHATASE 57 25 - 100 U/L INTERFACE SYSTEM AST 105(H) 8 - 33 U/L INTERFACE SYSTEM ALT 158(H) 4 - 36 IU/L INTERFACE SYSTEM BILIRUBIN TOTAL 1.0 0.3 - 1.2 mg/dL INTERFACE SYSTEM GLOBULIN (CALC) 2.5 2.4 - 3.9 g/dL INTERFACE SYSTEM ALBUMIN/GLOBULIN RATIO 1.6 1.0 - 2.3 INTERFACE SYSTEM ANION GAP 13 9 - 20 mEq/L INTERFACE SYSTEM OSMOLALITY, CALCULATED 291 275 - 295 mOsm/Kg INTERFACE SYSTEM 07/22/2007 5:53 AM ROUTE SUPERVISOR William Ramires MD CHEMISTRY ORDERABLES Edited Performing Organization Address [facility] Phone Number INTERFACE SYSTEM Refer to clinic/hospital department * CARDIAC ENZYMES (07/22/2007 1:30 AM ROUTE SUPERVISOR) TROPONIN I 0.3 0.0 - 1.3 ng/mL INTERFACE SYSTEM CKMB 1.9 0.0 - 5.0 ng/mL INTERFACE SYSTEM 07/22/2007 1:30 AM ROUTE SUPERVISOR Indy Bentley MD CHEMISTRY ORDERABLES Edited Performing Organization Address [facility] Phone Number INTERFACE SYSTEM Refer to clinic/hospital department * LIPASE (07/21/2007 6:17 PM ROUTE SUPERVISOR) LIPASE 43 6 - 51 U/L INTERFACE SYSTEM 07/21/2007 6:17 PM ROUTE SUPERVISOR William Ramires MD CHEMISTRY ORDERABLES Edited Performing Organization Address [facility] Phone Number INTERFACE SYSTEM Refer to clinic/hospital department * AMYLASE (07/21/2007 6:17 PM ROUTE SUPERVISOR) AMYLASE 50 20 - 104 U/L INTERFACE SYSTEM 07/21/2007 6:17 PM ROUTE SUPERVISOR us William Ramires MD CHEMISTRY ORDERABLES Edited INTERFACE SYSTEM Refer to clinic/hospital department * CARDIAC ENZYMES (07/21/2007 6:17 PM ROUTE SUPERVISOR) TROPONIN I 0.9 0.0 - 1.3 ng/mL INTERFACE SYSTEM CKMB 2.9 0.0 - 5.0 ng/mL INTERFACE SYSTEM 07/21/2007 6:17 PM ROUTE SUPERVISOR us Indy Bentley MD CHEMISTRY ORDERABLES Edited INTERFACE SYSTEM Refer to clinic/hospital department * (ABNORMAL) CBC WITH DIFFERENTIAL (07/21/2007 12:32 PM ROUTE SUPERVISOR) WBC 10.4 4.5 - 11.0 K/ul INTERFACE SYSTEM RBC 5.58 4.60 - 6.20 Mil/ul INTERFACE SYSTEM HEMOGLOBIN 16.3 14.0 - 18.0 g/dL INTERFACE SYSTEM HEMATOCRIT 48.1 41.0 - 53.0 % INTERFACE SYSTEM MCV 86.2 84.0 - 103.0 Fl INTERFACE SYSTEM MCH 29.2 27.0 - 34.0 pg INTERFACE SYSTEM MCHC 33.9 30.0 - 35.0 g/dL INTERFACE SYSTEM RDW 12.5 11.0 - 14.5 % INTERFACE SYSTEM PLATELETS 216 140 - 440 K/ul INTERFACE SYSTEM MPV 10.5 8.9 - 12.8 Fl INTERFACE SYSTEM NEUTROPHILS 77.2(H) 42.2 - 75.2 % INTERFACE SYSTEM LYMPHOCYTES 13.9(L) 24.0 - 44.0 % INTERFACE SYSTEM MONOCYTES 6.8 2.0 - 10.0 % INTERFACE SYSTEM EOSINOPHILS 1.9 0.0 - 7.0 % INTERFACE SYSTEM BASOPHILS 0.2 0.0 - 1.0 % INTERFACE SYSTEM NEUTROPHIL ABSOLUTE 8.0 2.0 - 8.0 K/ul INTERFACE SYSTEM LYMPHOCYTE ABSOLUTE 1.5 1.2 - 4.0 K/ul INTERFACE SYSTEM MONOCYTE ABSOLUTE 0.7(H) 0.1 - 0.6 K/ul INTERFACE SYSTEM EOSINOPHIL ABSOLUTE 0.2 0.0 - 0.7 K/ul INTERFACE SYSTEM BASOPHILS ABSOLUTE 0.0 0.0 - 0.2 K/ul INTERFACE SYSTEM 07/21/2007 12:3 2 PM ROUTE SUPERVISOR us Indy Bentley MD HEMATOLOGY ORDERABLES Edited Performing Organization Address [facility] Phone Number INTERFACE SYSTEM Refer to clinic/hospital department * PTT (07/21/2007 12:32 PM ROUTE SUPERVISOR) PTT 25.3 21.6 - 35.6 Secs INTERFACE SYSTEM 07/21/2007 12:3 2 PM ROUTE SUPERVISOR Indy Bentley MD HEMATOLOGY ORDERABLES Edited Performing Organization Address [facility] Phone Number INTERFACE SYSTEM Refer to clinic/hospital department * PROTIME-INR (07/21/2007 12:32 PM ROUTE SUPERVISOR) PROTIME 14.2 13.0 - 15.7 Secs INTERFACE SYSTEM INR 1.0 INTERFACE SYSTEM 07/21/2007 12:3 2 PM ROUTE SUPERVISOR Indy Bentley MD HEMATOLOGY ORDERABLES Edited Performing Organization Address [facility] Phone Number INTERFACE SYSTEM Refer to clinic/hospital department * (ABNORMAL) BASIC METABOLIC PANEL (07/21/2007 12:32 PM ROUTE SUPERVISOR) GLUCOSE 128(H) 70 - 110 mg/dL INTERFACE SYSTEM BUN 12 9 - 20 mg/dL INTERFACE SYSTEM CREATININE 0.9 0.7 - 1.5 mg/dL INTERFACE SYSTEM SODIUM 138 136 - 145 mEq/L INTERFACE SYSTEM POTASSIUM 4.4 3.5 - 5.0 mEq/L INTERFACE SYSTEM CHLORIDE 105 95 - 110 mEq/L INTERFACE SYSTEM CO2 27 22 - 32 mmol/l INTERFACE SYSTEM CALCIUM 9.6 8.4 - 10.5 mg/dL INTERFACE SYSTEM ANION GAP 10 9 - 20 mEq/L INTERFACE SYSTEM OSMOLALITY, CALCULATED 286 275 - 295 mOsm/Kg INTERFACE SYSTEM 07/21/2007 12:3 2 PM ROUTE SUPERVISOR Indy Bentley MD CHEMISTRY ORDERABLES Edited INTERFACE SYSTEM Refer to clinic/hospital department * CARDIAC ENZYMES (07/21/2007 12:32 PM ROUTE SUPERVISOR) TROPONIN I 0.1 0.0 - 1.3 ng/mL INTERFACE SYSTEM CKMB 0.5 0.0 - 5.0 ng/mL INTERFACE SYSTEM 07/21/2007 12:3 2 PM ROUTE SUPERVISOR Indy Bentley MD CHEMISTRY ORDERABLES Edited INTERFACE SYSTEM Refer to clinic/hospital department documented in this encounter Visit Diagnoses Diagnosis Intermediate coronary syndrome (CMS/HCC) Intermediate coronary syndrome Coronary atherosclerosis of [place] coronary artery Unspecified essential hypertension Other and unspecified hyperlipidemia Pure hypercholesterolemia Type II or unspecified type diabetes mellitus without mention of complication, not stated as uncontrolled Tobacco use disorder Other psoriasis Alcohol abuse, unspecified Postsurgical percutaneous transluminal coronary angioplasty status documented in this encounter Care Teams Cartography Teacher Relationship Specialty Start Date End Date Primitivo Crowder MD [address], [place] [address] PCP - General Family Practice 05/20/14 documented as of this encounter
--- OUTSIDE RECORDS SUMMARY | 2025-04-26 04:24 | XMS_ITS | Encounter Summary ---
Author Organization [facility] Address [address] [place] [address] Care Team Providers Care Digital Computer Operator Name Role Phone Primitivo Crowder MD Primary Care Provider [phone] Encounter Details Date Type Department Care Team (Latest Contact Info) Description 02/05/2005 Outpatient Historical [facility] [place] [address] [place] [phone] Primitivo Crowder MD [address] [place] [address] CHEST PAIN NEC (Primary Dx); Pain in limb; HYPERTENSION NOS Social History Tobacco Use Types Packs/Day Years Used Date Smoking Tobacco: Never Assessed Sex and Gender Information Value Date Recorded Sex Assigned at Not on file Legal Sex Male 4:47 AM CHILD CARE WORKER Gender Identity Not on file Sexual Orientation Not on file documented as of this encounter Plan of Treatment Not on file documented as of this encounter Visit Diagnoses Diagnosis Other chest pain- Primary Pain in limb Pain in soft tissues of limb Unspecified essential hypertension documented in this encounter Care Teams Digital Computer Operator Relationship Specialty Start Date End Date Primitivo Crowder MD [address] [place] [address] PCP - General Family Practice 05/20/14 documented as of this encounter
--- OUTSIDE RECORDS SUMMARY | 2025-04-26 04:24 | XMS_ITS | Encounter Summary ---
Author Organization [facility] Address [address] [place] [address] Care Team Providers Care Cab Starter Name Role Phone Primitivo Crowder MD Primary Care Provider [phone] Encounter Details Date Type Department Care Team (Latest Contact Info) Description 10/24/2006 Outpatient Historical [facility] [address] [place] [address] AMBULANCE, [facility] Other Chest Pain (Primary Dx) Social History Tobacco Use Types Packs/Day Years Used Date Smoking Tobacco: Never Assessed Sex and Gender Information Value Date Recorded Sex Assigned at Not on file Legal Sex Male 4:47 AM LIBRARY HELPER Gender Identity Not on file Sexual Orientation Not on file documented as of this encounter Plan of Treatment Not on file documented as of this encounter Visit Diagnoses Diagnosis Other chest pain- Primary documented in this encounter Care Teams Cab Starter Relationship Specialty Start Date End Date Primitivo Crowder MD [address] [place] [address] PCP - General Family Practice 05/20/14 documented as of this encounter
--- OUTSIDE RECORDS SUMMARY | 2025-04-26 04:24 | XMS_ITS | Encounter Summary ---
Author Organization [facility] Address [address] [place] [address] Care Team Providers Care Railroad Wheels And Axles Inspector Name Role Phone Primitivo Crowder MD Primary Care Provider [phone] Encounter Details Date Type Department Care Team (Latest Contact Info) Description 12/11/1998 Outpatient Historical [facility] [address] [phone] Primitivo Crowder MD [address] [place] [phone] Unspecified essential hypertension (Primary Dx); Other and unspecified hyperlipidemia; Other convulsions Social History Tobacco Use Types Packs/Day Years Used Date Smoking Tobacco: Never Assessed Sex and Gender Information Value Date Recorded Sex Assigned at Not on file Legal Sex Male 4:47 AM PARAEDUCATOR Gender Identity Not on file Sexual Orientation Not on file documented as of this encounter Plan of Treatment Not on file documented as of this encounter Visit Diagnoses Diagnosis Unspecified essential hypertension- Primary Other and unspecified hyperlipidemia Other convulsions documented in this encounter Care Teams Railroad Wheels And Axles Inspector Relationship Specialty Start Date End Date Primitivo Crowder MD [address] [place] [phone] PCP - General Family Practice 05/20/14 documented as of this encounter
--- OUTSIDE RECORDS SUMMARY | 2025-04-26 04:24 | XMS_ITS | Encounter Summary ---
Author Organization [facility] Address [address] [place] [address] Care Team Providers Care Social Media Assistant Name Role Phone Primitivo Crowder MD Primary Care Provider [phone] Encounter Details Date Type Department Care Team (Latest Contact Info) Description 03/07/1999 Outpatient Historical [facility] [address] [phone] Primitivo Crowder MD [address] [place] [phone] Other and unspecified hyperlipidemia (Primary Dx) Social History Tobacco Use Types Packs/Day Years Used Date Smoking Tobacco: Never Assessed Sex and Gender Information Value Date Recorded Sex Assigned at Not on file Legal Sex Male 4:47 AM JEWEL BLOCKER AND SAWYER Gender Identity Not on file Sexual Orientation Not on file documented as of this encounter Plan of Treatment Not on file documented as of this encounter Visit Diagnoses Diagnosis Other and unspecified hyperlipidemia- Primary documented in this encounter Care Teams Social Media Assistant Relationship Specialty Start Date End Date Primitivo Crowder MD [address] [phone] PCP - General Family Practice 05/20/14 documented as of this encounter
--- OUTSIDE RECORDS SUMMARY | 2025-04-26 04:24 | XMS_ITS | Encounter Summary ---
Author Organization [facility] Address [address] [place] [address] Care Team Providers Care Ceramics Artist Name Role Phone Primitivo Crowder MD Primary Care Provider [phone] Encounter Details Date Type Department Care Team (Latest Contact Info) Description 04/07/2007 Outpatient Historical [facility] [address] [place] [phone] Primitivo Crowder MD [address] [place] [address] Unilat Ing Hernia (Primary Dx) Social History Tobacco Use Types Packs/Day Years Used Date Smoking Tobacco: Never Assessed Sex and Gender Information Value Date Recorded Sex Assigned at Not on file Legal Sex Male 4:47 AM DIRECTOR PHONE Gender Identity Not on file Sexual Orientation Not on file documented as of this encounter Plan of Treatment Not on file documented as of this encounter Procedures Procedure Name Priority Date/Time Associated Diagnosis Comments CT ABDOMEN PELVIS W CONTRAST Routine 04/07/2007 10:21 AM CDT documented in this encounter Results * CT ABDOMEN PELVIS W CONTRAST (04/07/2007 10:21 AM CDT) Anatomical Region Laterality Modality Abdomen Other 04/07/2007 10:2 1 AM CDT Narrative 04/07/2007 10:21 AM CDT Exam: CT Abdomen, Pelvis, w/contrastDate/Time of Exam: Apr 07, 2007 12:06:37 PMHistory: ABD PAIN. Axial tomograms obtained through the abdomen and pelvis with Optiray-240 intravenous contrast, 100 mL. Oral contrast administered. Visualized lung bases essentially unremarkable. 1 cm hypodense cortical nodule of the superior rightkidney with attenuation characteristics not typical for a simple cyst. Remainder of solid upperintra-abdominal organs and gallbladder unremarkable. Few top normal sized portocaval lymph nodes. No free fluid. Moderate sized fat containing left inguinal hernia. Bowel structures nonspecific. Multilevel degenerative change of the spine. Impression: Moderate sized fat containing left inguinal hernia. 1 cm nodular cortical hypodensity ofthe right kidney with attenuation characteristics not typical for a simple cyst; furthercorrelation with ultrasound may be of benefit. - Dictated By: Leonardo Sal M.D. Electronically Signed By: Leonardo Sal M.D. Date Signed: 04/07/07 SDM Procedure Note 06/25/2009 Exam: CT Abdomen, Pelvis, w/contrastDate/Time of Exam: Apr 07, 2007 12:06:37 PMHistory: ABD PAIN. Axial tomograms obtained through the abdomen and pelvis with Optiray- 240intravenous contrast, 100 mL. Oral contrast administered. Visualized lung bases essentially unremarkable. 1 cm hypodense corticalnodule of the superior rightkidney with attenuation characteristics not typical for a simplecyst. Remainder of solid upperintra-abdominal organs and gallbladder unremarkable. Few top normalsized portocaval lymph nodes. No free fluid. Moderate sized fat containing left inguinal hernia. Bowelstructures nonspecific. Multilevel degenerative change of the spine. Impression: Moderate sized fat containing left inguinal hernia. 1 cm nodular corticalhypodensity ofthe right kidney with attenuation characteristics not typical for a simple cyst;furthercorrelation with ultrasound may be of benefit. - Dictated By: Leonardo Sal M.D. Electronically Signed By: Leonardo Sal M.D. Date Signed: 04/07/07 SDM us Historical Provider CT ORDERABLES Final Result documented in this encounter Visit Diagnoses Diagnosis Inguinal hernia without mention of obstruction or gangrene, unilateral or unspecified, (not specified as recurrent)- Primary documented in this encounter Care Teams Ceramics Artist Relationship Specialty Start Date End Date Primitivo Crowder MD [address] [place] [address] PCP - General Family Practice 05/20/14 documented as of this encounter
--- OUTSIDE RECORDS SUMMARY | 2025-04-26 04:24 | XMS_ITS | Encounter Summary ---
Author Organization [facility] Address [address] [place] [address] Care Team Providers Care Hr Analyst Name Role Phone Primitivo Crowder MD Primary Care Provider [phone] Encounter Details Date Type Department Care Team (Late st Contact Info) Description 08/08/2007 Outpatient Historical [address] [facility] [address] [facility] [place] [phone] Ed, Physician NO ADDRESS ON FILE Jessica Perdue MD [address] [place] [address] William Ramires MD [address] [address] [place] [phone] Unspecified Chest Pain Social History Tobacco Use Types Packs/Day Years Used Date Smoking Tobacco: Never Assessed Sex and Gender Information Value Date Recorded Sex Assigned at Not on file Legal Sex Male 4:47 AM TERMINAL GAUGER SUPERVISOR Gender Identity Not on file Sexual Orientation Not on file documented as of this encounter Plan of Treatment Not on file documented as of this encounter Procedures Procedure Name Priority Date/Time Associated Diagnosis Comments LIPASE Routine 08/10/2007 9:27 AM TERMINAL GAUGER SUPERVISOR AMYLASE Routine 08/10/2007 9:27 AM TERMINAL GAUGER SUPERVISOR HEPATIC FUNCTION PANEL Routine 08/10/2007 9:27 AM TERMINAL GAUGER SUPERVISOR CARDIAC ENZYMES Routine 08/10/2007 1:27 AM TERMINAL GAUGER SUPERVISOR CK TOTAL, RELATIVE INDEX Routine 08/09/2007 6:21 PM TERMINAL GAUGER SUPERVISOR CARDIAC ENZYMES Routine 08/09/2007 6:21 PM TERMINAL GAUGER SUPERVISOR CK Routine 08/09/2007 6:21 PM TERMINAL GAUGER SUPERVISOR CK TOTAL, RELATIVE INDEX Routine 08/09/2007 12:24 PM TERMINAL GAUGER SUPERVISOR CARDIAC ENZYMES Routine 08/09/2007 12:24 PM TERMINAL GAUGER SUPERVISOR CK Routine 08/09/2007 12:24 PM TERMINAL GAUGER SUPERVISOR BASIC METABOLIC PANEL Routine 08/09/2007 12:24 PM TERMINAL GAUGER SUPERVISOR CK TOTAL, RELATIVE INDEX Routine 08/09/2007 3:30 AM TERMINAL GAUGER SUPERVISOR CARDIAC ENZYMES Routine 08/09/2007 3:30 AM TERMINAL GAUGER SUPERVISOR CK Routine 08/09/2007 3:30 AM TERMINAL GAUGER SUPERVISOR CARDIAC ENZYMES Routine 08/08/2007 9:20 PM TERMINAL GAUGER SUPERVISOR CARDIAC ENZYMES Routine 08/08/2007 3:24 PM TERMINAL GAUGER SUPERVISOR CBC WITH DIFFERENTIAL Routine 08/08/2007 3:24 PM TERMINAL GAUGER SUPERVISOR PTT Routine 08/08/2007 3:24 PM TERMINAL GAUGER SUPERVISOR PROTIME-INR Routine 08/08/2007 3:24 PM TERMINAL GAUGER SUPERVISOR D-DIMER Routine 08/08/2007 3:24 PM TERMINAL GAUGER SUPERVISOR BASIC METABOLIC PANEL Routine 08/08/2007 3:24 PM TERMINAL GAUGER SUPERVISOR documented in this encounter Results * LIPASE (08/10/2007 9:27 AM TERMINAL GAUGER SUPERVISOR) LIPASE 44 6 - 51 U/L INTERFACE SYSTEM 08/10/2007 9:27 AM TERMINAL GAUGER SUPERVISOR us William Ramires MD CHEMISTRY ORDERABLES Edited Performing Organization Address City/[facility] Phone Number INTERFACE SYSTEM Refer to clinic/hospital department * AMYLASE (08/10/2007 9:27 AM TERMINAL GAUGER SUPERVISOR) AMYLASE 62 20 - 104 U/L INTERFACE SYSTEM 08/10/2007 9:27 AM TERMINAL GAUGER SUPERVISOR William Ramires MD CHEMISTRY ORDERABLES Edited Performing Organization Address [facility] Phone Number INTERFACE SYSTEM Refer to clinic/hospital department * (ABNORMAL) HEPATIC FUNCTION PANEL (08/10/2007 9:27 AM TERMINAL GAUGER SUPERVISOR) TOTAL PROTEIN 7.2 6.3 - 8.2 g/dL INTERFACE SYSTEM ALBUMIN 4.5 3.5 - 5.0 g/dL INTERFACE SYSTEM ALKALINE PHOSPHATASE 61 25 - 100 U/L INTERFACE SYSTEM AST 70(H) 8 - 33 U/L INTERFACE SYSTEM ALT 117(H) 4 - 36 IU/L INTERFACE SYSTEM BILIRUBIN TOTAL 1.1 0.3 - 1.2 mg/dL INTERFACE SYSTEM BILIRUBIN DIRECT 0.2 0.0 - 0.4 mg/dL INTERFACE SYSTEM 08/10/2007 9:27 AM TERMINAL GAUGER SUPERVISOR Result [facility] us William Ramires MD CHEMISTRY ORDERABLES Edited Performing Organization Address [facility] Phone Number INTERFACE SYSTEM Refer to clinic/hospital department * CARDIAC ENZYMES (08/10/2007 1:27 AM TERMINAL GAUGER SUPERVISOR) TROPONIN I 1.0 0.0 - 1.3 ng/mL INTERFACE SYSTEM Comment: As of 06 the Troponin Reference Range has changed from 0.0-1.5 ng/ml to 0.0- 1.3 ng/ml due to a change in testing methodology. CKMB 3.2 0.0 - 5.0 ng/mL INTERFACE SYSTEM 08/10/2007 1:27 AM TERMINAL GAUGER SUPERVISOR us William Ramires MD CHEMISTRY ORDERABLES Edited Performing Organization Address City/[facility]/ZIP Co de Phone Number INTERFACE SYSTEM Refer to clinic/hospital department * CK TOTAL, RELATIVE INDEX (08/09/2007 6:21 PM TERMINAL GAUGER SUPERVISOR) CK-MB CHEMICAL INDEX 4.1 0.0 - 4.5 INTERFACE SYSTEM 08/09/2007 6:21 PM TERMINAL GAUGER SUPERVISOR us William Ramires MD CHEMISTRY ORDERABLES Edited Performing Organization Address [facility] Phone Number INTERFACE SYSTEM Refer to clinic/hospital department * CK (08/09/2007 6:21 PM TERMINAL GAUGER SUPERVISOR) CK 130 38 - 174 U/L INTERFACE SYSTEM Comment:Specimen slightly he molyzed. Slight Lipemia. 08/09/2007 6:21 PM TERMINAL GAUGER SUPERVISOR us William Ramires MD CHEMISTRY ORDERABLES Edited Performing Organization Address [facility] Phone Number INTERFACE SYSTEM Refer to clinic/hospital department * (ABNORMAL) CARDIAC ENZYMES (08/09/2007 6:21 PM TERMINAL GAUGER SUPERVISOR) TROPONIN I 1.5(AA) 0.0 - 1.3 ng/mL INTERFACE SYSTEM Comment: As of 06 the Troponin Reference Range has changed from 0.0-1.5 ng/ml to 0.0- 1.3 ng/ml due to a change in testing methodology. Potentially critical/toxic troponin called by dg to Carley WELCH, with verbal read back, at 08/09/07 19:03. CKMB 5.3(H) 0.0 - 5.0 ng/mL INTERFACE SYSTEM 08/09/2007 6:21 PM TERMINAL GAUGER SUPERVISOR us William Ramires MD CHEMISTRY ORDERABLES Edited Performing Organization Address [facility] Phone Number INTERFACE SYSTEM Refer to clinic/hospital department * (ABNORMAL) CK TOTAL, RELATIVE INDEX (08/09/2007 12:24 PM TERMINAL GAUGER SUPERVISOR) CK-MB CHEMICAL INDEX 7.2(H) 0.0 - 4.5 INTERFACE SYSTEM 08/09/2007 12:2 4 PM TERMINAL GAUGER SUPERVISOR William Ramires MD CHEMISTRY ORDERABLES Edited Performing Organization Address [facility] Phone Number INTERFACE SYSTEM Refer to clinic/hospital department * CK (08/09/2007 12:24 PM TERMINAL GAUGER SUPERVISOR) CK 95 38 - 174 U/L INTERFACE SYSTEM 08/09/2007 12:2 4 PM TERMINAL GAUGER SUPERVISOR us William Ramires MD CHEMISTRY ORDERABLES Edited Performing Organization Address [facility] Phone Number INTERFACE SYSTEM Refer to clinic/hospital department * (ABNORMAL) CARDIAC ENZYMES (08/09/2007 12:24 PM TERMINAL GAUGER SUPERVISOR) TROPONIN I 1.4(AA) 0.0 - 1.3 ng/mL INTERFACE SYSTEM Comment: As of 06 the Troponin Reference Range has changed from 0.0-1.5 ng/ml to 0.0- 1.3 ng/ml due to a change in testing methodology. Potentially critical/toxic trop called by magdalene to zhou patino, with verbal read back, at 1307. CKMB 6.8(H) 0.0 - 5.0 ng/mL INTERFACE SYSTEM 08/09/2007 12:2 4 PM TERMINAL GAUGER SUPERVISOR William Ramires MD CHEMISTRY ORDERABLES Edited Performing Organization Address [facility] Phone Number INTERFACE SYSTEM Refer to clinic/hospital department * BASIC METABOLIC PANEL (08/09/2007 12:24 PM TERMINAL GAUGER SUPERVISOR) GLUCOSE 102 70 - 110 mg/dL INTERFACE SYSTEM Comment:Slight Lipemia BUN 16 9 - 20 mg/dL INTERFACE SYSTEM CREATININE 0.8 0.7 - 1.5 mg/dL INTERFACE SYSTEM SODIUM 137 136 - 145 mEq/L INTERFACE SYSTEM POTASSIUM 4.5 3.5 - 5.0 mEq/L INTERFACE SYSTEM Comment:Specimen slightly he molyzed CHLORIDE 106 95 - 110 mEq/L INTERFACE SYSTEM CO2 27 22 - 32 mmol/l INTERFACE SYSTEM CALCIUM 9.0 8.4 - 10.5 mg/dL INTERFACE SYSTEM ANION GAP 9 9 - 20 mEq/L INTERFACE SYSTEM OSMOLALITY, CALCULATED 285 275 - 295 mOsm/Kg INTERFACE SYSTEM 08/09/2007 12:2 4 PM TERMINAL GAUGER SUPERVISOR William Ramires MD CHEMISTRY ORDERABLES Edited Performing Organization Address City/[facility] Phone Number INTERFACE SYSTEM Refer to clinic/hospital department * CK TOTAL, RELATIVE INDEX (08/09/2007 3:30 AM TERMINAL GAUGER SUPERVISOR) CK-MB CHEMICAL INDEX 4.0 0.0 - 4.5 INTERFACE SYSTEM 08/09/2007 3:30 AM TERMINAL GAUGER SUPERVISOR Jessica Perdue MD CHEMISTRY ORDERABLES Edited Performing Organization Address [facility] Phone Number INTERFACE SYSTEM Refer to clinic/hospital department * (ABNORMAL) CK (08/09/2007 3:30 AM TERMINAL GAUGER SUPERVISOR) CK 192(H) 38 - 174 U/L INTERFACE SYSTEM 08/09/2007 3:30 AM TERMINAL GAUGER SUPERVISOR Jessica Perdue MD CHEMISTRY ORDERABLES Edited Performing Organization Address [facility] Phone Number INTERFACE SYSTEM Refer to clinic/hospital department * (ABNORMAL) CARDIAC ENZYMES (08/09/2007 3:30 AM TERMINAL GAUGER SUPERVISOR) TROPONIN I 1.2 0.0 - 1.3 ng/mL INTERFACE SYSTEM Comment: As of 06 the Troponin Reference Range has changed from 0.0-1.5 ng/ml to 0.0- 1.3 ng/ml due to a change in testing methodology. CKMB 7.6(H) 0.0 - 5.0 ng/mL INTERFACE SYSTEM 08/09/2007 3:30 AM TERMINAL GAUGER SUPERVISOR Jessica Perdue MD CHEMISTRY ORDERABLES Edited Performing Organization Address [facility] Phone Number INTERFACE SYSTEM Refer to clinic/hospital department * CARDIAC ENZYMES (08/08/2007 9:20 PM TERMINAL GAUGER SUPERVISOR) Pathologist [facility] TROPONIN I 0.4 0.0 - 1.3 ng/mL INTERFACE SYSTEM Comment: As of 06 the Troponin Reference Range has changed from 0.0-1.5 ng/ml to 0.0- 1.3 ng/ml due to a change in testing methodology. CKMB 4.1 0.0 - 5.0 ng/mL INTERFACE SYSTEM 08/08/2007 9:20 PM TERMINAL GAUGER SUPERVISOR Jessica Perdue MD CHEMISTRY ORDERABLES Edited Performing Organization Address [facility] Phone Number INTERFACE SYSTEM Refer to clinic/hospital department * D-DIMER (08/08/2007 3:24 PM TERMINAL GAUGER SUPERVISOR) [facility] D-DIMER QUANT 0.2 0.0 - 0.5 mcg/mL INTERFACE SYSTEM Comment: Testing performed using the STA Liatest D-Di kit. This test can be used as an aid to the diagnosis of deep venous thrombosis and pulmonary embolism. In clinical studies it has been reported that, with a cutoff value of 0.5 mcg/mL FEU, the negative predictive value for the exclusion of thrombosis was within the 95-100% range. 08/08/2007 3:24 PM TERMINAL GAUGER SUPERVISOR Jessica Perdue MD HEMATOLOGY ORDERABLES Edite d Performing Organization Address [facility] Phone Number INTERFACE SYSTEM Refer to clinic/hospital department * (ABNORMAL) CBC WITH DIFFERENTIAL (08/08/2007 3:24 PM TERMINAL GAUGER SUPERVISOR) Pathologist [facility] WBC 8.2 4.5 - 11.0 K/ul INTERFACE SYSTEM RBC 4.86 4.60 - 6.20 Mil/ul INTERFACE SYSTEM HEMOGLOBIN 14.4 14.0 - 18.0 g/dL INTERFACE SYSTEM HEMATOCRIT 41.9 41.0 - 53.0 % INTERFACE SYSTEM MCV 86.2 84.0 - 103.0 Fl INTERFACE SYSTEM MCH 29.6 27.0 - 34.0 pg INTERFACE SYSTEM MCHC 34.4 30.0 - 35.0 g/dL INTERFACE SYSTEM RDW 12.0 11.0 - 14.5 % INTERFACE SYSTEM PLATELETS 295 140 - 440 K/ul INTERFACE SYSTEM MPV 10.8 8.9 - 12.8 Fl INTERFACE SYSTEM NEUTROPHILS 66.5 42.2 - 75.2 % INTERFACE SYSTEM LYMPHOCYTES 23.2(L) 24.0 - 44.0 % INTERFACE SYSTEM MONOCYTES 7.1 2.0 - 10.0 % INTERFACE SYSTEM EOSINOPHILS 2.8 0.0 - 7.0 % INTERFACE SYSTEM BASOPHILS 0.4 0.0 - 1.0 % INTERFACE SYSTEM NEUTROPHIL ABSOLUTE 5.5 2.0 - 8.0 K/ul INTERFACE SYSTEM LYMPHOCYTE ABSOLUTE 1.9 1.2 - 4.0 K/ul INTERFACE SYSTEM MONOCYTE ABSOLUTE 0.6 0.1 - 0.6 K/ul INTERFACE SYSTEM EOSINOPHIL ABSOLUTE 0.2 0.0 - 0.7 K/ul INTERFACE SYSTEM BASOPHILS ABSOLUTE 0.0 0.0 - 0.2 K/ul INTERFACE SYSTEM 08/08/2007 3:24 PM TERMINAL GAUGER SUPERVISOR Jessica Perdue MD HEMATOLOGY ORDERABLES Edite d Performing Organization Address [facility] Phone Number INTERFACE SYSTEM Refer to clinic/hospital department * PTT (08/08/2007 3:24 PM TERMINAL GAUGER SUPERVISOR) PTT 26.9 21.6 - 35.6 Secs INTERFACE SYSTEM Comment: Therapeutic Range: Hi-level PE/DVT heparin protocol 80.1 -95.0 sec Lo-level PE/DVT heparin protocol 67.1 - 80.0 sec Cardiac Heparin Protocol 67.1 - 85.0 sec Neuro Heparin Protocol 67.1 - 80.0 sec As of 07/10/2006 note change in APTT Normal Range. 08/08/2007 3:24 PM TERMINAL GAUGER SUPERVISOR Jessica Perdue MD HEMATOLOGY ORDERABLES Edite d Performing Organization Address [facility] Phone Number INTERFACE SYSTEM Refer to clinic/hospital department * PROTIME-INR (08/08/2007 3:24 PM TERMINAL GAUGER SUPERVISOR) PROTIME 13.8 12.8 - 15.8 Secs INTERFACE SYSTEM Comment: As of 2007 note change in normal range. INR 1.0 INTERFACE SYSTEM Comment: Expected Values for INR: DVT/PE Goal INR 2.5; range 2.0 - 3.0 Valve Replacement Tissue Goal INR 2.5; range 2.0 - 3.0 Mechanical Goal INR 3.0; range 2.5 - 3.5 POST-MN Goal INR 2.5; range 2.0 - 3.0 or Goal 3.0; range 2.5 - 3.5 Atrial Fibrillation Goal INR 2.5; range 2.0 - 3.0 Ischemic Stroke Goal INR 2.5; range 2.0 - 3.0 For additional information see Guidelines for Anticoagulation available from the pharmacy Hitesh Ye D. 08/08/2007 3:24 PM TERMINAL GAUGER SUPERVISOR us Jessica Perdue MD HEMATOLOGY ORDERABLES Edite d Performing Organization Address [facility] Phone Number INTERFACE SYSTEM Refer to clinic/hospital department * (ABNORMAL) BASIC METABOLIC PANEL (08/08/2007 3:24 PM TERMINAL GAUGER SUPERVISOR) GLUCOSE 81 70 - 110 mg/dL INTERFACE SYSTEM BUN 19 9 - 20 mg/dL INTERFACE SYSTEM CREATININE 1.0 0.7 - 1.5 mg/dL INTERFACE SYSTEM SODIUM 139 136 - 145 mEq/L INTERFACE SYSTEM POTASSIUM 3.8 3.5 - 5.0 mEq/L INTERFACE SYSTEM CHLORIDE 107 95 - 110 mEq/L INTERFACE SYSTEM CO2 28 22 - 32 mmol/l INTERFACE SYSTEM CALCIUM 9.6 8.4 - 10.5 mg/dL INTERFACE SYSTEM ANION GAP 8(L) 9 - 20 mEq/L INTERFACE SYSTEM OSMOLALITY, CALCULATED 287 275 - 295 mOsm/Kg INTERFACE SYSTEM 08/08/2007 3:24 PM TERMINAL GAUGER SUPERVISOR us Jessica Perdue MD CHEMISTRY ORDERABLES Edited Performing Organization Address [facility] Phone Number INTERFACE SYSTEM Refer to clinic/hospital department * CARDIAC ENZYMES (08/08/2007 3:24 PM TERMINAL GAUGER SUPERVISOR) TROPONIN I <0.1 0.0 - 1.3 ng/mL INTERFACE SYSTEM Comment: As of 06 the Troponin Reference Range has changed from 0.0-1.5 ng/ml to 0.0- 1.3 ng/ml due to a change in testing methodology. CKMB 0.3 0.0 - 5.0 ng/mL INTERFACE SYSTEM 08/08/2007 3:24 PM TERMINAL GAUGER SUPERVISOR us Jessica Perdue MD CHEMISTRY ORDERABLES Edited INTERFACE SYSTEM Refer to clinic/hospital department documented in this encounter Visit Diagnoses Diagnosis Chest pain, unspecified documented in this encounter Care Teams Hr Analyst Relationship Specialty Start Date End Date Primitivo Crowder MD [address] [place] [phone] PCP - General Family Practice 05/20/14 documented as of this encounter
--- OUTSIDE RECORDS SUMMARY | 2025-04-26 04:24 | XMS_ITS | Encounter Summary ---
Author Organization [facility] Address [address] [place] [address] Care Team Providers Care Receiving Room Clerk Name Role Phone Primitivo Crowder MD Primary Care Provider [phone] Encounter Details Date Type Department Care Team (Latest Contact Info) Description 10/18/1998 Outpatient Historical [facility] [address] [phone] Primitivo Crowder MD [address] [place] [phone] Pure hyperglyceridemia (Primary Dx); Unspecified essential hypertension Social History Tobacco Use Types Packs/Day Years Used Date Smoking Tobacco: Never Assessed Sex and Gender Information Value Date Recorded Sex Assigned at Not on file 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
--- OUTSIDE RECORDS SUMMARY | 2025-04-26 04:24 | XMS_ITS | Encounter Summary ---
Author Organization [facility] Address [address] [place] [address] Care Team Providers Care Engraver Apprentice Decorative Name Role Phone Primitivo Crowder MD Primary Care Provider [phone] Encounter Details Date Type Department Care Team (Latest Contact Info) Description 01/31/[address] 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
--- OUTSIDE RECORDS SUMMARY | 2025-04-26 04:24 | XMS_ITS | Encounter Summary ---
Author Organization [facility] Address [address] [place] [address] Care Team Providers Care Power Distribution Engineer Name Role Phone Primitivo Crowder MD Primary Care Provider [phone] Encounter Details Date Type Department Care Team (Latest Contact Info) Description 11/27/[address] 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
--- OUTSIDE RECORDS SUMMARY | 2025-04-26 04:24 | XMS_ITS | Encounter Summary ---
Author Organization [facility] Address [address] [place] [address] Care Team Providers Care Spinner Operator Name Role Phone Primitivo Crowder MD Primary Care Provider [phone] Encounter Details Date Type Department Care Team (Late st Contact Info) Description 07/21/2007 Outpatient Historical [facility] [address] 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
--- OUTSIDE RECORDS SUMMARY | 2025-04-26 04:24 | XMS_ITS | Encounter Summary ---
Author Organization [facility] Address [address] [place] [address] Care Team Providers Care Direct Sales Representative Name Role Phone Primitivo Crowder MD Primary Care Provider [phone] Encounter Details Date Type Department Care Team (Latest Contact Info) Description 12/04/1998 Outpatient Historical [facility] [address] [phone] Primitivo Crowder MD [address] [place] [phone] Other and unspecified hyperlipidemia (Primary Dx) Social History Tobacco Use Types Packs/Day Years Used Date Smoking Tobacco: Never Assessed Sex and Gender Information Value Date Recorded Sex Assigned at Not on file Legal Sex Male 4:[address] WAITER/WAITRESS Gender Identity Not on file Sexual Orientation Not on file documented as of this encounter Plan of Treatment Not on file documented as of this encounter Visit Diagnoses Diagnosis Other and unspecified hyperlipidemia- Primary documented in this encounter Care Teams Direct Sales Representative Relationship Specialty Start Date End Date Primitivo Crowder MD [address] [phone] PCP - General Family Practice 05/20/14 documented as of this encounter
--- OUTSIDE RECORDS SUMMARY | 2025-04-26 04:24 | XMS_ITS | Encounter Summary ---
Author Organization [facility] Address [address] [place] [address] Care Team Providers Care Housekeeping Director Name Role Phone Primitivo Crowder MD Primary Care Provider [phone] Encounter Details Date Type Department Care Team (Late st Contact Info) Description 10/24/2006 Inpatient Historical [facility] William Ramires MD [address] [address] [place] [phone] Dyspepsia and Other Specified Disorders of Function of Stomach (Primary Dx) Social History Tobacco Use Types Packs/Day Years Used Date Smoking Tobacco: Never Assessed Sex and Gender Information Value Date Recorded Sex Assigned at Not on file 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 Gender Identity Not on file Sexual Orientation Not on file documented as of this encounter Plan of Treatment Not on file documented as of this encounter Procedures Procedure Name Priority Date/Time Associated Diagnosis Comments PTT Routine 10/25/2006 3:12 AM CDT CBC WITHOUT DIFFERENTIAL Routine 10/25/2006 3:12 AM CDT COMPREHENSIVE METABOLIC PANEL Routine 10/25/2006 3:12 AM CDT CARDIAC ENZYMES Routine 10/24/2006 10:14 PM CDT PTT Routine 10/24/2006 6:47 PM CDT XR CHEST PA OR AP 1 VW Routine 7 5:00 PM CDT CARDIAC ENZYMES Routine 10/24/2006 3:37 PM CDT CARDIAC ENZYMES Routine 10/24/2006 10:18 AM CDT CBC WITH DIFFERENTIAL Routine 10/24/2006 10:18 AM CDT PTT Routine 10/24/2006 10:18 AM CDT PROTIME-INR Routine 10/24/2006 10:18 AM CDT BASIC METABOLIC PANEL Routine 10/24/2006 10:18 AM CDT documented in this encounter Results * CBC WITHOUT DIFFERENTIAL (10/25/2006 3:12 AM CDT) WBC 8.0 4.5 - 11.0 K/ul INTERFACE SYSTEM RBC 4.96 4.60 - 6.20 Mil/ul INTERFACE SYSTEM HEMOGLOBIN 14.6 14.0 - 18.0 g/dL INTERFACE SYSTEM HEMATOCRIT 43.5 41.0 - 53.0 % INTERFACE SYSTEM MCV 87.7 84.0 - 103.0 Fl INTERFACE SYSTEM MCH 29.4 27.0 - 34.0 pg INTERFACE SYSTEM MCHC 33.6 30.0 - 35.0 g/dL INTERFACE SYSTEM RDW 12.9 11.0 - 14.5 % INTERFACE SYSTEM PLATELETS 213 140 - 440 K/ul INTERFACE SYSTEM MPV 10.8 8.9 - 12.8 Fl INTERFACE SYSTEM NEUTROPHILS 54.4 42.2 - 75.2 % INTERFACE SYSTEM LYMPHOCYTES 33.9 24.0 - 44.0 % INTERFACE SYSTEM MONOCYTES 6.7 2.0 - 10.0 % INTERFACE SYSTEM EOSINOPHILS 4.9 0.0 - 7.0 % INTERFACE SYSTEM BASOPHILS 0.1 0.0 - 1.0 % INTERFACE SYSTEM NEUTROPHIL ABSOLUTE 4.4 2.0 - 8.0 K/uL INTERFACE SYSTEM LYMPHOCYTE ABSOLUTE 2.7 1.2 - 4.0 K/ul INTERFACE SYSTEM MONOCYTE ABSOLUTE 0.5 0.1 - 0.6 K/ul INTERFACE SYSTEM EOSINOPHIL ABSOLUTE 0.4 0.0 - 0.7 K/ul INTERFACE SYSTEM BASOPHILS ABSOLUTE 0.0 0.0 - 0.2 K/ul INTERFACE SYSTEM 10/25/2006 3:12 AM CDT William Ramires MD HEMATOLOGY ORDERABLES Edite d Performing Organization Address [facility] Phone Number INTERFACE SYSTEM Refer to clinic/hospital department * (ABNORMAL) COMPREHENSIVE METABOLIC PANEL (10/25/2006 3:12 AM CDT) GLOBULIN (CALC) 2.3(L) 2.4 - 3.9 g/dL INTERFACE SYSTEM ALBUMIN/GLOBULIN RATIO 1.7 1.0 - 2.3 INTERFACE SYSTEM GLUCOSE 100 70 - 110 mg/dL INTERFACE SYSTEM BUN 16 9 - 20 mg/dL INTERFACE SYSTEM CREATININE 1.0 0.7 - 1.5 mg/dL INTERFACE SYSTEM SODIUM 138 136 - 145 mEq/L INTERFACE SYSTEM POTASSIUM 4.1 3.5 - 5.0 mEq/L INTERFACE SYSTEM CHLORIDE 101 95 - 110 mEq/L INTERFACE SYSTEM CO2 28 22 - 32 mmol/l INTERFACE SYSTEM CALCIUM 9.1 8.4 - 10.5 mg/dL INTERFACE SYSTEM TOTAL PROTEIN 6.3 6.3 - 8.2 g/dL INTERFACE SYSTEM ALBUMIN 4.0 3.5 - 5.0 g/dL INTERFACE SYSTEM ALKALINE PHOSPHATASE 68 25 - 100 U/L INTERFACE SYSTEM AST 73(H) 8 - 33 U/L INTERFACE SYSTEM ALT 137(H) 4 - 36 IU/L INTERFACE SYSTEM BILIRUBIN TOTAL 0.8 0.3 - 1.2 mg/dL INTERFACE SYSTEM ANION GAP 13 9 - 20 mEq/L INTERFACE SYSTEM OSMOLALITY, CALCULATED 286 275 - 295 mOsm/Kg INTERFACE SYSTEM 10/25/2006 3:12 AM CDT William Ramires MD CHEMISTRY ORDERABLES Edited Performing Organization Address [facility] Phone Number INTERFACE SYSTEM Refer to clinic/hospital department * (ABNORMAL) PTT (10/25/2006 3:12 AM CDT) PTT 78.1(H) 21.6 - 35.6 Secs INTERFACE SYSTEM Comment: Therapeutic Range: Hi-level PE/DVT heparin protocol 80.1 -95.0 sec Lo-level PE/DVT heparin protocol 67.1 - 80.0 sec Cardiac Heparin Protocol 67.1 - 85.0 sec Neuro Heparin Protocol 67.1 - 80.0 sec As of 07/10/2006 note change in APTT Normal Range. 10/25/2006 3:12 AM CDT William Ramires MD HEMATOLOGY ORDERABLES Edite d Performing Organization Address [facility] Phone Number INTERFACE SYSTEM Refer to clinic/hospital department * CARDIAC ENZYMES (10/24/2006 10:14 PM CDT) TROPONIN I 0.2 0.0 - 1.5 ng/mL INTERFACE SYSTEM CKMB 2.6 0.0 - 5.0 ng/mL INTERFACE SYSTEM 10/24/2006 10:1 4 PM CDT Physician Sj Ed CHEMISTRY ORDERABLES Edited Performing Organization Address [facility] Phone Number INTERFACE SYSTEM Refer to clinic/hospital department * PTT (10/24/2006 6:47 PM CDT) PTT 32.6 21.6 - 35.6 Secs INTERFACE SYSTEM Comment: Therapeutic Range: Hi-level PE/DVT heparin protocol 80.1 -95.0 sec Lo-level PE/DVT heparin protocol 67.1 - 80.0 sec Cardiac Heparin Protocol 67.1 - 85.0 sec Neuro Heparin Protocol 67.1 - 80.0 sec As of 07/10/2006 note change in APTT Normal Range. 10/24/2006 6:47 PM CDT William Ramires MD HEMATOLOGY ORDERABLES Edite d Performing Organization Address [facility] Phone Number INTERFACE SYSTEM Refer to clinic/hospital department * XR CHEST PA OR AP (10/24/2006 5:00 PM CDT) Anatomical Region Laterality Modality Chest Other 10/24/2006 5:00 PM CDT Narrative 10/24/2006 5:00 PM CDT No prior studies. Heart size is normal. Few calcified perihilar lymph nodes. No infiltrates or effusions. Impression: 1. No infiltrates. - Dictated By: Davina Devine M.D. Electronically Signed By: Davina Devine M.D. Date Signed: 10/24/06 [facility] Procedure Note 06/24/2009 No prior studies. Heart size is normal. Few calcified perihilar lymph nodes. No infiltratesor effusions. Impression: 1. No infiltrates. - Dictated By: Davina Devine M.D. Electronically Signed By: Davina Devine M.D. Date Signed: 10/24/06 [facility] Physician Ed DIAGNOSTIC IMAGING ORDERABLES Fi nal Result * CARDIAC ENZYMES (10/24/2006 3:37 PM CDT) TROPONIN I 0.1 0.0 - 1.5 ng/mL INTERFACE SYSTEM CKMB 1.9 0.0 - 5.0 ng/mL INTERFACE SYSTEM 10/24/2006 3:37 PM CDT Physician Ed CHEMISTRY ORDERABLES Edited INTERFACE SYSTEM Refer to clinic/hospital department * CBC WITH DIFFERENTIAL (10/24/2006 10:18 AM CDT) WBC 6.9 4.5 - 11.0 K/ul INTERFACE SYSTEM RBC 5.50 4.60 - 6.20 Mil/ul INTERFACE SYSTEM HEMOGLOBIN 16.5 14.0 - 18.0 g/dL INTERFACE SYSTEM HEMATOCRIT 47.6 41.0 - 53.0 % INTERFACE SYSTEM MCV 86.5 84.0 - 103.0 Fl INTERFACE SYSTEM MCH 30.0 27.0 - 34.0 pg INTERFACE SYSTEM MCHC 34.7 30.0 - 35.0 g/dL INTERFACE SYSTEM RDW 12.5 11.0 - 14.5 % INTERFACE SYSTEM PLATELETS 240 140 - 440 K/ul INTERFACE SYSTEM MPV 10.9 8.9 - 12.8 Fl INTERFACE SYSTEM NEUTROPHILS 55.9 42.2 - 75.2 % INTERFACE SYSTEM LYMPHOCYTES 31.3 24.0 - 44.0 % INTERFACE SYSTEM MONOCYTES 7.1 2.0 - 10.0 % INTERFACE SYSTEM EOSINOPHILS 5.4 0.0 - 7.0 % INTERFACE SYSTEM BASOPHILS 0.3 0.0 - 1.0 % INTERFACE SYSTEM NEUTROPHIL ABSOLUTE 3.8 2.0 - 8.0 K/uL INTERFACE SYSTEM LYMPHOCYTE ABSOLUTE 2.2 1.2 - 4.0 K/ul INTERFACE SYSTEM MONOCYTE ABSOLUTE 0.5 0.1 - 0.6 K/ul INTERFACE SYSTEM EOSINOPHIL ABSOLUTE 0.4 0.0 - 0.7 K/ul INTERFACE SYSTEM BASOPHILS ABSOLUTE 0.0 0.0 - 0.2 K/ul INTERFACE SYSTEM 10/24/2006 10:1 8 AM CDT Physician Ed HEMATOLOGY ORDERABLES Edited Performing Organization Address [facility] de Phone Number INTERFACE SYSTEM Refer to clinic/hospital department * PTT (10/24/2006 10:18 AM CDT) PTT 25.8 21.6 - 35.6 Secs INTERFACE SYSTEM Comment: Therapeutic Range: Hi-level PE/DVT heparin protocol 80.1 -95.0 sec Lo-level PE/DVT heparin protocol 67.1 - 80.0 sec Cardiac Heparin Protocol 67.1 - 85.0 sec Neuro Heparin Protocol 67.1 - 80.0 sec As of 07/10/2006 note change in APTT Normal Range. 10/24/2006 10:1 8 AM CDT Physician Ed HEMATOLOGY ORDERABLES Edited Performing Organization Address [facility] de Phone Number INTERFACE SYSTEM Refer to clinic/hospital department * PROTIME-INR (10/24/2006 10:18 AM CDT) PROTIME 14.1 13.0 - 15.7 Secs INTERFACE SYSTEM Comment: As of 06 note change in normal range. INR 1.0 INTERFACE SYSTEM Comment: Expected Values for INR: DVT/PE Goal INR 2.5; range 2.0 - 3.0 Valve Replacement Tissue Goal INR 2.5; range 2.0 - 3.0 Mechanical Goal INR 3.0; range 2.5 - 3.5 POST-ND Goal INR 2.5; range 2.0 - 3.0 or Goal 3.0; range 2.5 - 3.5 Atrial Fibrillation Goal INR 2.5; range 2.0 - 3.0 Ischemic Stroke Goal INR 2.5; range 2.0 - 3.0 For additional information see Guidelines for Anticoagulation available from the pharmacy Nae Nguyen, Pharm D. 10/24/2006 10:1 8 AM CDT Physician Ed HEMATOLOGY ORDERABLES Edited Performing Organization Address [facility] Phone Number INTERFACE SYSTEM Refer to clinic/hospital department * BASIC METABOLIC PANEL (10/24/2006 10:18 AM CDT) GLUCOSE 104 70 - 110 mg/dL INTERFACE SYSTEM BUN 14 9 - 20 mg/dL INTERFACE SYSTEM CREATININE 0.9 0.7 - 1.5 mg/dL INTERFACE SYSTEM SODIUM 140 136 - 145 mEq/L INTERFACE SYSTEM POTASSIUM 4.1 3.5 - 5.0 mEq/L INTERFACE SYSTEM Comment:Specimen slightly he molyzed CHLORIDE 104 95 - 110 mEq/L INTERFACE SYSTEM CO2 27 22 - 32 mmol/l INTERFACE SYSTEM CALCIUM 9.8 8.4 - 10.5 mg/dL INTERFACE SYSTEM ANION GAP 13 9 - 20 mEq/L INTERFACE SYSTEM OSMOLALITY, CALCULATED 289 275 - 295 mOsm/Kg INTERFACE SYSTEM 10/24/2006 10:1 8 AM CDT Physician Ed CHEMISTRY ORDERABLES Edited Performing Organization Address [facility] Phone Number INTERFACE SYSTEM Refer to clinic/hospital department * CARDIAC ENZYMES (10/24/2006 10:18 AM CDT) TROPONIN I <0.1 0.0 - 1.5 ng/mL INTERFACE SYSTEM CKMB 0.7 0.0 - 5.0 ng/mL INTERFACE SYSTEM 10/24/2006 10:1 8 AM CDT Physician Ed CHEMISTRY ORDERABLES Edited Performing Organization Address [facility] Phone Number INTERFACE SYSTEM Refer to clinic/hospital department documented in this encounter Visit Diagnoses Diagnosis Dyspepsia and other specified disorders of function of stomach- Primary documented in this encounter Care Teams Housekeeping Director Relationship Specialty Start Date End Date Primitivo Crowder MD [address] [place] [address] PCP - General Family Practice 05/20/14 documented as of this encounter
--- OUTSIDE RECORDS SUMMARY | 2025-04-26 04:24 | XMS_ITS | Encounter Summary ---
Author Organization [facility] Address [address] [place] [address] Care Team Providers Care Manager Assessment Name Role Phone Primitivo Crowder MD Primary Care Provider [phone] Encounter Details Date Type Department Care Team (Latest Contact Info) Description 02/17/2007 Outpatient Historical [facility] [address] [phone] Primitivo Crowder MD [address] [place] [phone] Nonspecific Abnormal Results of Liver Function Study (Primary Dx); Other and Unspecified Hyperlipidemia Social History Tobacco Use Types Packs/Day Years Used Date Smoking Tobacco: Never Assessed Sex and Gender Information Value Date Recorded Sex Assigned at Not on file 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
--- OUTSIDE RECORDS SUMMARY | 2025-04-26 04:24 | XMS_ITS | Encounter Summary ---
Author Organization [facility] Address [address] [place] [address] Care Team Providers Care Project Development Director Name Role Phone Primitivo Crowder MD Primary Care Provider [phone] Encounter Details Date Type Department Care Team (Late st Contact Info) Description 12/23/1997 Outpatient Historical [facility] [address] [place] [address] Social History Tobacco Use Types Packs/Day Years Used Date Smoking Tobacco: Never Assessed Sex and Gender Information Value Date Recorded Sex Assigned at Not on file 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
--- OUTSIDE RECORDS SUMMARY | 2025-04-26 04:24 | XMS_ITS | Encounter Summary ---
Author Organization [facility] Address [address] [place] [address] Care Team Providers Care Recreation Facility Attendant Name Role Phone Primitivo Crowder MD Primary Care Provider [phone] Encounter Details Date Type Department Care Team (Latest Contact Info) Description 10/04/1997 Outpatient Historical [facility] [address] [place] [phone] Bro Gao MD [address] [place] [address] Esophagitis, unspecified (Primary Dx); Irritable bowel syndrome Social History Tobacco Use Types Packs/Day Years Used Date Smoking Tobacco: Never Assessed Sex and Gender Information Value Date Recorded Sex Assigned at Not on file 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
--- OUTSIDE RECORDS SUMMARY | 2025-04-26 04:24 | XMS_ITS | Encounter Summary ---
Author Organization [facility] Address [address] [place] [address] Care Team Providers Care Armored Vehicle Officer Name Role Phone Primitivo Crowder MD Primary Care Provider [phone] Encounter Details Date Type Department Care Team (Latest Contact Info) Description 12/27/1998 Outpatient Historical [facility] [address] [phone] Primitivo Crowder MD [address] [place] [phone] Unspecified essential hypertension (Primary Dx); Other and unspecified hyperlipidemia; Other convulsions Social History Tobacco Use Types Packs/Day Years Used Date Smoking Tobacco: Never Assessed Sex and Gender Information Value Date Recorded Sex Assigned at Not on file 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
--- OUTSIDE RECORDS SUMMARY | 2025-04-26 04:24 | XMS_ITS | Encounter Summary ---
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
--- OUTSIDE RECORDS SUMMARY | 2025-04-26 04:24 | XMS_ITS | Encounter Summary ---
Author Organization [facility] Address [address] [place] [address] Care Team Providers Care Life Enrichment Specialist Name Role Phone Primitivo Crowder MD Primary Care Provider [phone] Encounter Details Date Type Department Care Team (Latest Contact Info) Description 08/22/1998 Outpatient Historical [address] [phone] Primitivo Crowder MD [address] [place] [phone] Dizziness and giddiness (Primary Dx); Cough; Other and unspecified hyperlipidemia Social History Tobacco Use Types Packs/Day Years Used Date Smoking Tobacco: Never Assessed Sex and Gender Information Value Date Recorded Sex Assigned at Not on file 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
--- OUTSIDE RECORDS SUMMARY | 2025-04-26 04:24 | XMS_ITS | Encounter Summary ---
Author Organization [facility] Address [address] [place] [address] Care Team Providers Care Tungsten Refiner Name Role Phone Primitivo Crowder MD Primary Care Provider [phone] Encounter Details Date Type Department Care Team (Latest Contact Info) Description 10/01/2005 Outpatient Historical [facility] [address] [phone] Lia Blanco MD [address] [place], [place] [phone] HYPERTENSION NOS (Primary Dx); DIZZINESS AND GIDDINESS; CHEST PAIN NOS Social History Tobacco Use Types Packs/Day Years Used Date Smoking Tobacco: Never Assessed Sex and Gender Information Value Date Recorded Sex Assigned at Not on file 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
--- OUTSIDE RECORDS SUMMARY | 2025-04-26 04:24 | XMS_ITS | Encounter Summary ---
Author Organization [facility] Address [address] [place] [address] Care Team Providers Care Assorter Name Role Phone Primitivo Crowder MD Primary Care Provider [phone] Encounter Details Date Type Department Care Team (Latest Contact Info) Description 02/14/1999 Outpatient Historical [facility] [address] [phone] Primitivo Crowder MD [address] [place] [phone] Generalized osteoarthrosis, involving multiple sites (Primary Dx); Unspecified hereditary and idiopathic peripheral neuropathy; Pure hyperglyceridemia; Irritable bowel syndrome Social History Tobacco Use Types Packs/Day Years Used Date Smoking Tobacco: Never Assessed Sex and Gender Information Value Date Recorded Sex Assigned at Not on file 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
--- OUTSIDE RECORDS SUMMARY | 2025-04-26 04:24 | XMS_ITS | Encounter Summary ---
Author Organization [facility] Address [address] [place] [address] Care Team Providers Care Folder Seamer Name Role Phone Primitivo Crowder MD Primary Care Provider [phone] Encounter Details Date Type Department Care Team (Latest Contact Info) Description 12/29/1997 Outpatient Historical [facility] Services-[facility] [address] [place] [phone] Lucy Smith MD NO ADDRESS ON FILE Nonspecific (abnormal) findings on radiological and other examination of abdominal area, including retroperitoneum (Primary Dx) Social History Tobacco Use Types Packs/Day Years Used Date Smoking Tobacco: Never Assessed Sex and Gender Information Value Date Recorded Sex Assigned at Not on file 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
--- OUTSIDE RECORDS SUMMARY | 2025-04-26 04:24 | XMS_ITS | Encounter Summary ---
Author Organization [facility] Address [address] [place] [address] Care Team Providers Care Garland Machine Operator Name Role Phone Primitivo Crowder MD Primary Care Provider [phone] Encounter Details Date Type Department Care Team (Latest Contact Info) Description 09/08/1997 Outpatient Historical 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
--- OUTSIDE RECORDS SUMMARY | 2025-04-26 04:24 | XMS_ITS | Encounter Summary ---
Author Organization [facility] Address [address] [place] [address] Care Team Providers Care Concrete Engineer Name Role Phone Primitivo Crowder MD Primary Care Provider [phone] Encounter Details Date Type Department Care Team (Latest Contact Info) Description 03/21/1999 Outpatient Historical [facility] [address] [phone] Primitivo Crowder MD [address] [place] [phone] Psoriatic arthropathy (CMS/HCC) (Primary Dx) Social History Tobacco Use Types Packs/Day Years Used Date Smoking Tobacco: Never Assessed Sex and Gender Information Value Date Recorded Sex Assigned at Not on file 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
--- OUTSIDE RECORDS SUMMARY | 2025-04-26 04:24 | XMS_ITS | Encounter Summary ---
Author Organization [facility] Address [address] [place] [address] Care Team Providers Care Foil Operator Name Role Phone Primitivo Crowder MD Primary Care Provider [phone] Encounter Details Date Type Department Care Team (Latest Contact Info) Description 12/23/1997 Outpatient Historical [facility] Pietro Crystal MD NO ADDRESS ON FILE Abdominal pain, unspecified site (Primary Dx) Social History Tobacco Use Types Packs/Day Years Used Date Smoking Tobacco: Never Assessed Sex and Gender Information Value Date Recorded Sex Assigned at Not on file Legal Sex Male 4:47 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
--- OUTSIDE RECORDS SUMMARY | 2025-04-26 04:24 | XMS_ITS | Encounter Summary ---
Author Organization [facility] Address [address] [place] [address] Care Team Providers Care Vendor Relationship Manager Name Role Phone Primitivo Crowder MD Primary Care Provider [phone] Encounter Details Date Type Department Care Team (Late st Contact Info) Description 08/08/2007 Outpatient Historical [facility] [address] 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
--- OUTSIDE RECORDS SUMMARY | 2025-04-26 04:24 | XMS_ITS | Encounter Summary ---
Author Organization [facility] Address [address] [place] [address] Care Team Providers Care Environmental Projects Advisor Name Role Phone Primitivo Crowder MD Primary Care Provider [phone] Encounter Details Date Type Department Care Team (Latest Contact Info) Description 11/01/2005 Outpatient Historical [facility] Cardiology- [place] [address] [place] [phone] William Ramires MD [address] [address] [place] [address] Other and Unspecified Hyperlipidemia (Primary Dx); Precordial Pain; Other Dyspnea and Respiratory Abnormality; Undiagnosed Cardiac Murmurs Social History Tobacco Use Types Packs/Day Years Used Date Smoking Tobacco: Never Assessed Sex and Gender Information Value Date Recorded Sex Assigned at Not on file 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
--- OUTSIDE RECORDS SUMMARY | 2025-04-26 04:24 | XMS_ITS | Encounter Summary ---
Author Organization [facility] Address [address] [place] [address] Care Team Providers Care Suspect Artist Name Role Phone Primitivo Crowder MD Primary Care Provider [phone] Encounter Details Date Type Department Care Team (Latest Contact Info) Description 12/16/2006 Outpatient Historical [facility] [address] 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
--- OUTSIDE RECORDS SUMMARY | 2025-04-26 04:24 | XMS_ITS | Encounter Summary ---
Author Organization [facility] Address [address] [place] [address] Care Team Providers Care Title Examiner Name Role Phone Primitivo Crowder MD Primary Care Provider [phone] Encounter Details Date Type Department Care Team (Latest Contact Info) Description 03/30/2007 Outpatient Historical [facility] [address] [phone] Primitivo Crowder MD [address] [place] [phone] Abdominal Pain, Unspecified Site (Primary Dx) Social History Tobacco Use Types Packs/Day Years Used Date Smoking Tobacco: Never Assessed Sex and Gender Information Value Date Recorded Sex Assigned at Not on file 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
--- OUTSIDE RECORDS SUMMARY | 2025-04-26 04:24 | XMS_ITS | Encounter Summary ---
Author Organization [facility] Address [address] [place] [address] Care Team Providers Care Tricot Knitter Name Role Phone Primitivo Crowder MD Primary Care Provider [phone] Encounter Details Date Type Department Care Team (Late st Contact Info) Description 11/05/2005 Inpatient Historical [facility] IN BED Bernardino Mason MD [address] [facility] [address] [place] [address] Coronary Atherosclerosis of [place] Coronary Artery (Primary Dx) Social History Tobacco Use Types Packs/Day Years Used Date Smoking Tobacco: Never Assessed Sex and Gender Information Value Date Recorded Sex Assigned at Not on file 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 Gender Identity Not on file Sexual Orientation Not on file documented as of this encounter Plan of Treatment Not on file documented as of this encounter Procedures Procedure Name Priority Date/Time Associated Diagnosis Comments LIPID PANEL Routine 11/06/2005 8:37 AM CDT POC ACTIVATED CLOTTING TIME Routine 11/05/2005 1:14 PM CDT LIPASE Routine 11/05/2005 8:38 AM CDT AMYLASE Routine 11/05/2005 8:38 AM CDT COMPREHENSIVE METABOLIC PANEL Routine 11/05/2005 8:37 AM CDT PT AND APTT Routine 11/05/2005 8:27 AM CDT documented in this encounter Results * (ABNORMAL) LIPID PANEL (11/06/2005 8:37 AM CDT) CALCULATED TOTAL CHOLESTEROL TO HDL RATIO 5.70(H) 3.43 - 4.97 INTERFACE SYSTEM CHOLESTEROL 211(H) 75 - 200 mg/dL INTERFACE SYSTEM HDL 37(L) 40 - 60 mg/dL INTERFACE SYSTEM LDL CALCULATED n/a 0 - 130 mg/dL INTERFACE SYSTEM Comment:Triglycerides >400 m g/dl; LDL calculation invalid TRIGLYCERIDE 405(H) 0 - 179 mg/dL INTERFACE SYSTEM 11/06/2005 8:37 AM CDT Historical Provider CHEMISTRY ORDERABLES Final R esult Performing Organization Address [facility] de Phone Number INTERFACE SYSTEM Refer to clinic/hospital department * POC ACTIVATED CLOTTING TIME (11/05/2005 1:14 PM CDT) ACT POC 147 79 - 149 sec INTERFACE SYSTEM 11/05/2005 1:14 PM CDT us Historical Provider POINT OF CARE TESTING Final Result Performing Organization Address [facility] Phone Number INTERFACE SYSTEM Refer to clinic/hospital department * LIPASE (11/05/2005 8:38 AM CDT) Pathologist [facility] LIPASE 35 6 - 51 U/L INTERFACE SYSTEM Comment: As of 05 the [facility] has changed testing methods. The new reference range is 6-51 The old referance range was 23-300 11/05/2005 8:38 AM CDT Historical Provider CHEMISTRY ORDERABLES Final R esult Performing Organization Address [facility] Phone Number INTERFACE SYSTEM Refer to clinic/hospital department * AMYLASE (11/05/2005 8:38 AM CDT) AMYLASE 59 20 - 104 U/L INTERFACE SYSTEM Comment: As of 05 the [facility] has changed testing methods. The new reference range is 20-104 The old referance range was 30-120 11/05/2005 8:38 AM CDT us Historical Provider CHEMISTRY ORDERABLES Final R esult INTERFACE SYSTEM Refer to clinic/hospital department * (ABNORMAL) COMPREHENSIVE METABOLIC PANEL (11/05/2005 8:37 AM CDT) GLUCOSE 101 70 - 110 mg/dL INTERFACE SYSTEM BUN 14 9 - 20 mg/dL INTERFACE SYSTEM CREATININE 0.9 0.7 - 1.5 mg/dL INTERFACE SYSTEM SODIUM 138 136 - 145 mEq/L INTERFACE SYSTEM POTASSIUM 4.3 3.5 - 5.0 mEq/L INTERFACE SYSTEM CHLORIDE 105 95 - 110 mEq/L INTERFACE SYSTEM CO2 30 22 - 32 mmol/l INTERFACE SYSTEM ANION GAP 7(L) 9 - 20 mEq/L INTERFACE SYSTEM OSMOLALITY, CALCULATED 285 275 - 295 mOsm/Kg INTERFACE SYSTEM CALCIUM 9.7 8.4 - 10.5 mg/dL INTERFACE SYSTEM TOTAL PROTEIN 7.6 6.3 - 8.2 g/dL INTERFACE SYSTEM ALBUMIN 5.0 3.5 - 5.0 g/dL INTERFACE SYSTEM GLOBULIN (CALC) 2.6 2.4 - 3.9 g/dL INTERFACE SYSTEM ALBUMIN/GLOBULIN RATIO 1.9 1.0 - 2.3 INTERFACE SYSTEM ALKALINE PHOSPHATASE 81 25 - 100 U/L INTERFACE SYSTEM Comment: As of 05 the [facility] has changed testing methods. The new reference range is 25-100 The old referance range was 38-126 AST 24 8 - 33 U/L INTERFACE SYSTEM Comment: As of 05 the [facility] has changed testing methods. The new reference range is 8-33 The old referance range was Males 17-59 Females 14-36 ALT 43(H) 4 - 36 IU/L INTERFACE SYSTEM Comment: As of 05 the [facility] has changed testing methods. The new reference range is 4-36 The old referance range was Males 21-72 Females 9-52 BILIRUBIN TOTAL 1.4(H) 0.3 - 1.2 mg/dL INTERFACE SYSTEM Comment: As of 05 the [facility] has changed testing methods. The new reference range is 0.3-1.2 The old referance range was 0.2-1.4 11/05/2005 8:37 AM CDT Historical Provider CHEMISTRY ORDERABLES Final R esult INTERFACE SYSTEM Refer to clinic/hospital department * PT AND APTT (11/05/2005 8:27 AM CDT) PROTIME 13.0 12.6 - 14.9 Secs INTERFACE SYSTEM Comment: As of 05 note change in normal range. INR 0.9 INTERFACE SYSTEM Comment: Expected Values for INR: DVT/PE Goal INR 2.5; range 2.0 - 3.0 Valve Replacement Tissue Goal INR 2.5; range 2.0 - 3.0 Mechanical Goal INR 3.0; range 2.5 - 3.5 POST-LA Goal INR 2.5; range 2.0 - 3.0 or Goal 3.0; range 2.5 - 3.5 Atrial Fibrillation Goal INR 2.5; range 2.0 - 3.0 Ischemic Stroke Goal INR 2.5; range 2.0 - 3.0 For additional information see Guidelines for Anticoagulation available from the pharmacy Hitesh Ye PTT 27.0 21.5 - 34.4 Secs INTERFACE SYSTEM Comment: Therapeutic Range: Hi-level PE/DVT heparin protocol 90.1 -110 sec Lo-level PE/DVT heparin protocol 75.1 - 95 sec Cardiac Heparin Protocol 85.1 - 100 sec Neuro Heparin Protocol 70.1 - 85 sec As of 08/28/05 note change in APTT Normal Range. 11/05/2005 8:27 AM CDT us Historical Provider HEMATOLOGY ORDERABLES Final Result INTERFACE SYSTEM Refer to clinic/hospital department documented in this encounter Visit Diagnoses Diagnosis Coronary atherosclerosis of [place] coronary artery- Primary documented in this encounter Care Teams Tricot Knitter Relationship Specialty Start Date End Date Primitivo Crowder MD [address] [place] [phone] PCP - General Family Practice 10/17/14 documented as of this encounter
--- OUTSIDE RECORDS SUMMARY | 2025-04-26 04:24 | XMS_ITS | Encounter Summary ---
Author Organization [facility] Address [address] [place] [address] Care Team Providers Care Associate Professor Computer Science Name Role Phone Primitivo Crowder MD Primary Care Provider [phone] Encounter Details Date Type Department Care Team (Latest Contact Info) Description 08/25/1998 Outpatient Historical [facility] [address] [phone] Primitivo Crowder MD [address] [place] [address] Other and unspecified hyperlipidemia (Primary Dx); Dizziness and giddiness Social History Tobacco Use Types Packs/Day Years Used Date Smoking Tobacco: Never Assessed Sex and Gender Information Value Date Recorded Sex Assigned at Not on file 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
--- OUTSIDE RECORDS SUMMARY | 2025-04-26 04:24 | XMS_ITS | Encounter Summary ---
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
--- OUTSIDE RECORDS SUMMARY | 2025-04-26 04:24 | XMS_ITS | Encounter Summary ---
Author Organization [facility] Address [address] [place] [address] Care Team Providers Care Acid Pumper Name Role Phone Primitivo Crowder MD Primary Care Provider [phone] Encounter Details Date Type Department Care Team (Latest Contact Info) Description 02/05/2005 Outpatient Historical [facility] [address] [place] [address] Brian Sears MD [address] [place] [address] PRECORDIAL PAIN (Primary Dx) Social History Tobacco Use Types Packs/Day Years Used Date Smoking Tobacco: Never Assessed Sex and Gender Information Value Date Recorded Sex Assigned at Not on file 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
--- OUTSIDE RECORDS SUMMARY | 2025-04-26 04:25 | XMS_ITS | Encounter Summary ---
Author Organization [facility] Address [address] [place] [address] Care Team Providers Care Gui Developer Name Role Phone Primitivo Crowder MD Primary Care Provider [phone] Encounter Details Date Type Department Care Team (Latest Contact Info) Description 10/31/2000 Outpatient Historical [facility] [address] [phone] Primitivo Crowder MD [address] [place] [phone] Backache, unspecified (Primary Dx); Sprain lumbar region; Abdominal pain, unspecified site; Unspecified essential hypertension Social History Tobacco Use Types Packs/Day Years Used Date Smoking Tobacco: Never Assessed Sex and Gender Information Value Date Recorded Sex Assigned at Not on file 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
--- OUTSIDE RECORDS SUMMARY | 2025-04-26 04:25 | XMS_ITS | Encounter Summary ---
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
--- OUTSIDE RECORDS SUMMARY | 2025-04-26 04:25 | XMS_ITS | Encounter Summary ---
Author Organization [facility] Address [address] [place] [address] Care Team Providers Care Leg Breaker Name Role Phone Primitivo Crowder MD Primary Care Provider [phone] Encounter Details Date Type Department Care Team (Late st Contact Info) Description 08/12/2007 Outpatient Historical [address] Surgery Heart Lung [address] [place] [address] Ed, Physician NO ADDRESS ON FILE Michael Phillips, NO ADDRESS ON FILE William Ramires MD [address] [address] [place] [address] Unspecified Chest Pain Social History Tobacco Use Types Packs/Day Years Used Date Smoking Tobacco: Never Assessed Sex and Gender Information Value Date Recorded Sex Assigned at Not on file Legal Sex Male 4:47 AM STOCKROOM ASSOCIATE Gender Identity Not on file Sexual Orientation Not on file documented as of this encounter Plan of Treatment Not on file documented as of this encounter Procedures Procedure Name Priority Date/Time Associated Diagnosis Comments POC GLUCOSE Routine 08/19/2007 11:15 AM STOCKROOM ASSOCIATE POC GLUCOSE Routine 08/19/2007 6:48 AM STOCKROOM ASSOCIATE POC GLUCOSE Routine 08/18/2007 8:47 PM STOCKROOM ASSOCIATE POC GLUCOSE Routine 08/18/2007 5:25 PM STOCKROOM ASSOCIATE POC GLUCOSE Routine 08/18/2007 12:25 PM STOCKROOM ASSOCIATE POC GLUCOSE Routine 08/18/2007 6:41 AM STOCKROOM ASSOCIATE CBC WITH DIFFERENTIAL Routine 08/18/2007 4:51 AM STOCKROOM ASSOCIATE BASIC METABOLIC PANEL Routine 08/18/2007 4:51 AM STOCKROOM ASSOCIATE POC GLUCOSE Routine 08/17/2007 9:54 PM STOCKROOM ASSOCIATE POC GLUCOSE Routine 08/17/2007 6:04 PM STOCKROOM ASSOCIATE POC GLUCOSE Routine 08/17/2007 12:15 PM STOCKROOM ASSOCIATE POC GLUCOSE Routine 08/17/2007 7:03 AM STOCKROOM ASSOCIATE POC GLUCOSE Routine 08/16/2007 8:09 PM STOCKROOM ASSOCIATE POC GLUCOSE Routine 08/16/2007 4:50 PM STOCKROOM ASSOCIATE POC GLUCOSE Routine 08/16/2007 12:01 PM STOCKROOM ASSOCIATE POC GLUCOSE Routine 08/16/2007 5:23 AM STOCKROOM ASSOCIATE CBC WITH DIFFERENTIAL Routine 08/16/2007 2:32 AM STOCKROOM ASSOCIATE BASIC METABOLIC PANEL Routine 08/16/2007 2:32 AM STOCKROOM ASSOCIATE POC GLUCOSE Routine 08/15/2007 8:58 PM STOCKROOM ASSOCIATE POC GLUCOSE Routine 08/15/2007 5:27 PM STOCKROOM ASSOCIATE POTASSIUM LEVEL Routine 08/15/2007 4:00 PM STOCKROOM ASSOCIATE POC GLUCOSE Routine 08/15/2007 11:54 AM STOCKROOM ASSOCIATE POC GLUCOSE Routine 08/15/2007 7:51 AM STOCKROOM ASSOCIATE POC GLUCOSE Routine 08/15/2007 6:24 AM STOCKROOM ASSOCIATE CBC WITH DIFFERENTIAL Routine 08/15/2007 1:49 AM STOCKROOM ASSOCIATE BASIC METABOLIC PANEL Routine 08/15/2007 1:49 AM STOCKROOM ASSOCIATE POC GLUCOSE Routine 08/15/2007 1:37 AM STOCKROOM ASSOCIATE POC GLUCOSE Routine 08/14/2007 10:58 PM STOCKROOM ASSOCIATE POC GLUCOSE Routine 08/14/2007 8:28 PM STOCKROOM ASSOCIATE POC GLUCOSE Routine 08/14/2007 7:26 PM STOCKROOM ASSOCIATE POC BLOOD GAS, LYTES AND H+H Routine 08/14/2007 6:40 PM STOCKROOM ASSOCIATE POC GLUCOSE Routine 08/14/2007 6:22 PM STOCKROOM ASSOCIATE POC GLUCOSE Routine 08/14/2007 5:27 PM STOCKROOM ASSOCIATE POC GLUCOSE Routine 08/14/2007 4:32 PM STOCKROOM ASSOCIATE POC GLUCOSE Routine 08/14/2007 3:33 PM STOCKROOM ASSOCIATE POC GLUCOSE Routine 08/14/2007 2:32 PM STOCKROOM ASSOCIATE POC GLUCOSE Routine 08/14/2007 1:29 PM STOCKROOM ASSOCIATE POC BLOOD GAS, LYTES AND H+H Routine 08/14/2007 12:15 PM STOCKROOM ASSOCIATE POC GLUCOSE Routine 08/14/2007 12:09 PM STOCKROOM ASSOCIATE CBC WITHOUT DIFFERENTIAL Routine 08/14/2007 12:01 PM STOCKROOM ASSOCIATE PT AND APTT Routine 08/14/2007 10:49 AM STOCKROOM ASSOCIATE CBC WITHOUT DIFFERENTIAL Routine 08/14/2007 10:49 AM STOCKROOM ASSOCIATE CARDIAC ENZYMES Routine 08/13/2007 4:15 AM STOCKROOM ASSOCIATE LIPID PANEL Routine 08/13/2007 4:15 AM STOCKROOM ASSOCIATE CARDIAC ENZYMES Routine 08/12/2007 9:56 PM STOCKROOM ASSOCIATE XR CHEST PA OR AP 1 VW Routine 08/12/2007 4:09 PM STOCKROOM ASSOCIATE XR CHEST PA OR AP 1 VW Routine 08/12/2007 4:09 PM STOCKROOM ASSOCIATE XR CHEST PA OR AP 1 VW Routine 08/12/2007 4:09 PM STOCKROOM ASSOCIATE CARDIAC ENZYMES Routine 08/12/2007 3:55 PM STOCKROOM ASSOCIATE CBC WITH DIFFERENTIAL Routine 08/12/2007 3:55 PM STOCKROOM ASSOCIATE PTT Routine 08/12/2007 3:55 PM STOCKROOM ASSOCIATE PROTIME-INR Routine 08/12/2007 3:55 PM STOCKROOM ASSOCIATE BASIC METABOLIC PANEL Routine 08/12/2007 3:55 PM STOCKROOM ASSOCIATE documented in this encounter Results * (ABNORMAL) POC GLUCOSE (08/19/2007 11:15 AM STOCKROOM ASSOCIATE) GLUCOSE POC 109(H) 60 - 100 mg/dL INTERFACE SYSTEM 08/19/2007 11:1 5 AM STOCKROOM ASSOCIATE us William Ramires MD POINT OF CARE TESTING Edite d Performing Organization Address [facility] Co de Phone Number INTERFACE SYSTEM Refer to clinic/hospital department * (ABNORMAL) POC GLUCOSE (08/19/2007 6:48 AM STOCKROOM ASSOCIATE) GLUCOSE POC 170(H) 60 - 100 mg/dL INTERFACE SYSTEM 08/19/2007 6:48 AM STOCKROOM ASSOCIATE us William Ramires MD POINT OF CARE TESTING Edite d Performing Organization Address [facility] Co de Phone Number INTERFACE SYSTEM Refer to clinic/hospital department * (ABNORMAL) POC GLUCOSE (08/18/2007 8:47 PM STOCKROOM ASSOCIATE) GLUCOSE POC 159(H) 60 - 100 mg/dL INTERFACE SYSTEM 08/18/2007 8:47 PM STOCKROOM ASSOCIATE us William Ramires MD POINT OF CARE TESTING Edite d Performing Organization Address [facility] Phone Number INTERFACE SYSTEM Refer to clinic/hospital department * POC GLUCOSE (08/18/2007 5:25 PM STOCKROOM ASSOCIATE) GLUCOSE POC 96 60 - 100 mg/dL INTERFACE SYSTEM 08/18/2007 5:25 PM STOCKROOM ASSOCIATE us William Ramires MD POINT OF CARE TESTING Edite d Performing Organization Address [facility] Phone Number INTERFACE SYSTEM Refer to clinic/hospital department * (ABNORMAL) POC GLUCOSE (08/18/2007 12:25 PM STOCKROOM ASSOCIATE) GLUCOSE POC 101(H) 60 - 100 mg/dL INTERFACE SYSTEM 08/18/2007 12:2 5 PM STOCKROOM ASSOCIATE us William Ramires MD POINT OF CARE TESTING Edite d Performing Organization Address [facility] Phone Number INTERFACE SYSTEM Refer to clinic/hospital department * (ABNORMAL) POC GLUCOSE (08/18/2007 6:41 AM STOCKROOM ASSOCIATE) GLUCOSE POC 104(H) 60 - 100 mg/dL INTERFACE SYSTEM 08/18/2007 6:41 AM STOCKROOM ASSOCIATE us William Ramires MD POINT OF CARE TESTING Edite d Performing Organization Address [facility] Phone Number INTERFACE SYSTEM Refer to clinic/hospital department * (ABNORMAL) BASIC METABOLIC PANEL (08/18/2007 4:51 AM STOCKROOM ASSOCIATE) GLUCOSE 105 70 - 110 mg/dL INTERFACE SYSTEM BUN 37(H) 9 - 20 mg/dL INTERFACE SYSTEM CREATININE 1.4 0.7 - 1.5 mg/dL INTERFACE SYSTEM SODIUM 139 136 - 145 mEq/L INTERFACE SYSTEM POTASSIUM 3.5 3.5 - 5.0 mEq/L INTERFACE SYSTEM CHLORIDE 99 95 - 110 mEq/L INTERFACE SYSTEM CO2 33(H) 22 - 32 mmol/l INTERFACE SYSTEM CALCIUM 9.4 8.4 - 10.5 mg/dL INTERFACE SYSTEM ANION GAP 11 9 - 20 mEq/L INTERFACE SYSTEM OSMOLALITY, CALCULATED 294 275 - 295 mOsm/Kg INTERFACE SYSTEM 08/18/2007 4:51 AM STOCKROOM ASSOCIATE Philip Parmar II, MD CHEMISTRY ORDERABLES Edit ed INTERFACE SYSTEM Refer to clinic/hospital department * (ABNORMAL) CBC WITH DIFFERENTIAL (08/18/2007 4:51 AM STOCKROOM ASSOCIATE) WBC 12.2(H) 4.5 - 11.0 K/ul INTERFACE SYSTEM RBC 3.53(L) 4.60 - 6.20 Mil/ul INTERFACE SYSTEM HEMOGLOBIN 10.1(L) 14.0 - 18.0 g/dL INTERFACE SYSTEM HEMATOCRIT 31.3(L) 41.0 - 53.0 % INTERFACE SYSTEM MCV 88.7 84.0 - 103.0 Fl INTERFACE SYSTEM MCH 28.6 27.0 - 34.0 pg INTERFACE SYSTEM MCHC 32.3 30.0 - 35.0 g/dL INTERFACE SYSTEM RDW 12.3 11.0 - 14.5 % INTERFACE SYSTEM PLATELETS 311 140 - 440 K/ul INTERFACE SYSTEM MPV 10.6 8.9 - 12.8 Fl INTERFACE SYSTEM NEUTROPHILS 69.3 42.2 - 75.2 % INTERFACE SYSTEM LYMPHOCYTES 19.3(L) 24.0 - 44.0 % INTERFACE SYSTEM MONOCYTES 9.1 2.0 - 10.0 % INTERFACE SYSTEM EOSINOPHILS 2.1 0.0 - 7.0 % INTERFACE SYSTEM BASOPHILS 0.2 0.0 - 1.0 % INTERFACE SYSTEM NEUTROPHIL ABSOLUTE 8.5(H) 2.0 - 8.0 K/ul INTERFACE SYSTEM LYMPHOCYTE ABSOLUTE 2.4 1.2 - 4.0 K/ul INTERFACE SYSTEM MONOCYTE ABSOLUTE 1.1(H) 0.1 - 0.6 K/ul INTERFACE SYSTEM EOSINOPHIL ABSOLUTE 0.3 0.0 - 0.7 K/ul INTERFACE SYSTEM BASOPHILS ABSOLUTE 0.0 0.0 - 0.2 K/ul INTERFACE SYSTEM 08/18/2007 4:51 AM STOCKROOM ASSOCIATE Philip Parmar II, MD HEMATOLOGY ORDERABLES Prabhu hiram Performing Organization Address [place]/[facility] Co de Phone Number INTERFACE SYSTEM Refer to clinic/hospital department * (ABNORMAL) POC GLUCOSE (08/17/2007 9:54 PM STOCKROOM ASSOCIATE) GLUCOSE POC 123(H) 60 - 100 mg/dL INTERFACE SYSTEM 08/17/2007 9:54 PM STOCKROOM ASSOCIATE us William Ramires MD POINT OF CARE TESTING Edite d Performing Organization Address [place]/[facility] de Phone Number INTERFACE SYSTEM Refer to clinic/hospital department * POC GLUCOSE (08/17/2007 6:04 PM STOCKROOM ASSOCIATE) GLUCOSE POC 100 60 - 100 mg/dL INTERFACE SYSTEM 08/17/2007 6:04 PM STOCKROOM ASSOCIATE Result Antonio Ramires MD POINT OF CARE TESTING Edite d Performing Organization Address [facility] de Phone Number INTERFACE SYSTEM Refer to clinic/hospital department * POC GLUCOSE (08/17/2007 12:15 PM STOCKROOM ASSOCIATE) GLUCOSE POC 96 60 - 100 mg/dL INTERFACE SYSTEM 08/17/2007 12:1 5 PM STOCKROOM ASSOCIATE Result Antonio Ramires MD POINT OF CARE TESTING Edite d Performing Organization Address [facility] de Phone Number INTERFACE SYSTEM Refer to clinic/hospital department * (ABNORMAL) POC GLUCOSE (08/17/2007 7:03 AM STOCKROOM ASSOCIATE) GLUCOSE POC 137(H) 60 - 100 mg/dL INTERFACE SYSTEM 08/17/2007 7:03 AM STOCKROOM ASSOCIATE Result Antonio Ramires MD POINT OF CARE TESTING Edite d Performing Organization Address [place]/[facility] Co de Phone Number INTERFACE SYSTEM Refer to clinic/hospital department * (ABNORMAL) POC GLUCOSE (08/16/2007 8:09 PM STOCKROOM ASSOCIATE) GLUCOSE POC 140(H) 60 - 100 mg/dL INTERFACE SYSTEM 08/16/2007 8:09 PM STOCKROOM ASSOCIATE us William Ramires MD POINT OF CARE TESTING Edite d INTERFACE SYSTEM Refer to clinic/hospital department * (ABNORMAL) POC GLUCOSE (08/16/2007 4:50 PM STOCKROOM ASSOCIATE) GLUCOSE POC 149(H) 60 - 100 mg/dL INTERFACE SYSTEM 08/16/2007 4:50 PM STOCKROOM ASSOCIATE us William Ramires MD POINT OF CARE TESTING Edite d Performing Organization Address [facility] Co de Phone Number INTERFACE SYSTEM Refer to clinic/hospital department * (ABNORMAL) POC GLUCOSE (08/16/2007 12:01 PM STOCKROOM ASSOCIATE) GLUCOSE POC 149(H) 60 - 100 mg/dL INTERFACE SYSTEM 08/16/2007 12:0 1 PM STOCKROOM ASSOCIATE us William Ramires MD POINT OF CARE TESTING Edite d Performing Organization Address [facility] Co de Phone Number INTERFACE SYSTEM Refer to clinic/hospital department * (ABNORMAL) POC GLUCOSE (08/16/2007 5:23 AM STOCKROOM ASSOCIATE) GLUCOSE POC 177(H) 60 - 100 mg/dL INTERFACE SYSTEM 08/16/2007 5:23 AM STOCKROOM ASSOCIATE Result Antonio Ramires MD POINT OF CARE TESTING Edite d INTERFACE SYSTEM Refer to clinic/hospital department * (ABNORMAL) BASIC METABOLIC PANEL (08/16/2007 2:32 AM STOCKROOM ASSOCIATE) GLUCOSE 139(H) 70 - 110 mg/dL INTERFACE SYSTEM BUN 22(H) 9 - 20 mg/dL INTERFACE SYSTEM CREATININE 1.6(H) 0.7 - 1.5 mg/dL INTERFACE SYSTEM SODIUM 139 136 - 145 mEq/L INTERFACE SYSTEM POTASSIUM 4.0 3.5 - 5.0 mEq/L INTERFACE SYSTEM CHLORIDE 104 95 - 110 mEq/L INTERFACE SYSTEM CO2 28 22 - 32 mmol/l INTERFACE SYSTEM CALCIUM 9.1 8.4 - 10.5 mg/dL INTERFACE SYSTEM ANION GAP 11 9 - 20 mEq/L INTERFACE SYSTEM OSMOLALITY, CALCULATED 292 275 - 295 mOsm/Kg INTERFACE SYSTEM 08/16/2007 2:32 AM STOCKROOM ASSOCIATE us Philip Parmar II, MD CHEMISTRY ORDERABLES Edit ed INTERFACE SYSTEM Refer to clinic/hospital department * (ABNORMAL) CBC WITH DIFFERENTIAL (08/16/2007 2:32 AM STOCKROOM ASSOCIATE) WBC 15.8(H) 4.5 - 11.0 K/ul INTERFACE SYSTEM RBC 3.86(L) 4.60 - 6.20 Mil/ul INTERFACE SYSTEM HEMOGLOBIN 11.0(L) 14.0 - 18.0 g/dL INTERFACE SYSTEM HEMATOCRIT 33.6(L) 41.0 - 53.0 % INTERFACE SYSTEM MCV 87.0 84.0 - 103.0 Fl INTERFACE SYSTEM MCH 28.5 27.0 - 34.0 pg INTERFACE SYSTEM MCHC 32.7 30.0 - 35.0 g/dL INTERFACE SYSTEM RDW 12.4 11.0 - 14.5 % INTERFACE SYSTEM PLATELETS 177 140 - 440 K/ul INTERFACE SYSTEM MPV 10.8 8.9 - 12.8 Fl INTERFACE SYSTEM NEUTROPHILS 81.6(H) 42.2 - 75.2 % INTERFACE SYSTEM LYMPHOCYTES 6.6(L) 24.0 - 44.0 % INTERFACE SYSTEM MONOCYTES 11.5(H) 2.0 - 10.0 % INTERFACE SYSTEM EOSINOPHILS 0.2 0.0 - 7.0 % INTERFACE SYSTEM BASOPHILS 0.1 0.0 - 1.0 % INTERFACE SYSTEM NEUTROPHIL ABSOLUTE 12.9(H) 2.0 - 8.0 K/ul INTERFACE SYSTEM LYMPHOCYTE ABSOLUTE 1.0(L) 1.2 - 4.0 K/ul INTERFACE SYSTEM MONOCYTE ABSOLUTE 1.8(H) 0.1 - 0.6 K/ul INTERFACE SYSTEM EOSINOPHIL ABSOLUTE 0.0 0.0 - 0.7 K/ul INTERFACE SYSTEM BASOPHILS ABSOLUTE 0.0 0.0 - 0.2 K/ul INTERFACE SYSTEM 08/16/2007 2:32 AM STOCKROOM ASSOCIATE Philip Parmar II, MD HEMATOLOGY ORDERABLES Prabhu hiram Performing Organization Address [place]/[facility] de Phone Number INTERFACE SYSTEM Refer to clinic/hospital department * (ABNORMAL) POC GLUCOSE (08/15/2007 8:58 PM STOCKROOM ASSOCIATE) GLUCOSE POC 180(H) 60 - 100 mg/dL INTERFACE SYSTEM 08/15/2007 8:58 PM STOCKROOM ASSOCIATE William Ramires MD POINT OF CARE TESTING Edite d Performing Organization Address [facility] Phone Number INTERFACE SYSTEM Refer to clinic/hospital department * (ABNORMAL) POC GLUCOSE (08/15/2007 5:27 PM STOCKROOM ASSOCIATE) GLUCOSE POC 166(H) 60 - 100 mg/dL INTERFACE SYSTEM 08/15/2007 5:27 PM STOCKROOM ASSOCIATE William Ramires MD POINT OF CARE TESTING Edite d Performing Organization Address [facility] Phone Number INTERFACE SYSTEM Refer to clinic/hospital department * POTASSIUM LEVEL (08/15/2007 4:00 PM STOCKROOM ASSOCIATE) POTASSIUM 4.7 3.5 - 5.0 mEq/L INTERFACE SYSTEM 08/15/2007 4:00 PM STOCKROOM ASSOCIATE us William Ramires MD CHEMISTRY ORDERABLES Edited Performing Organization Address [facility] de Phone Number INTERFACE SYSTEM Refer to clinic/hospital department * (ABNORMAL) POC GLUCOSE (08/15/2007 11:54 AM STOCKROOM ASSOCIATE) GLUCOSE POC 151(H) 60 - 100 mg/dL INTERFACE SYSTEM 08/15/2007 11:5 4 AM STOCKROOM ASSOCIATE us William Ramires MD POINT OF CARE TESTING Edite d Performing Organization Address [place]/[facility] Co de Phone Number INTERFACE SYSTEM Refer to clinic/hospital department * (ABNORMAL) POC GLUCOSE (08/15/2007 7:51 AM STOCKROOM ASSOCIATE) GLUCOSE POC 126(H) 60 - 100 mg/dL INTERFACE SYSTEM 08/15/2007 7:51 AM STOCKROOM ASSOCIATE William Ramires MD POINT OF CARE TESTING Edite d Performing Organization Address [facility] de Phone Number INTERFACE SYSTEM Refer to clinic/hospital department * (ABNORMAL) POC GLUCOSE (08/15/2007 6:24 AM STOCKROOM ASSOCIATE) GLUCOSE POC 126(H) 60 - 100 mg/dL INTERFACE SYSTEM 08/15/2007 6:24 AM STOCKROOM ASSOCIATE us William Ramires MD POINT OF CARE TESTING Edite d Performing Organization Address [facility] de Phone Number INTERFACE SYSTEM Refer to clinic/hospital department * (ABNORMAL) CBC WITH DIFFERENTIAL (08/15/2007 1:49 AM STOCKROOM ASSOCIATE) WBC 16.4(H) 4.5 - 11.0 K/ul INTERFACE SYSTEM RBC 4.48(L) 4.60 - 6.20 Mil/ul INTERFACE SYSTEM HEMOGLOBIN 13.0(L) 14.0 - 18.0 g/dL INTERFACE SYSTEM HEMATOCRIT 39.1(L) 41.0 - 53.0 % INTERFACE SYSTEM MCV 87.3 84.0 - 103.0 Fl INTERFACE SYSTEM MCH 29.0 27.0 - 34.0 pg INTERFACE SYSTEM MCHC 33.2 30.0 - 35.0 g/dL INTERFACE SYSTEM RDW 12.3 11.0 - 14.5 % INTERFACE SYSTEM PLATELETS 241 140 - 440 K/ul INTERFACE SYSTEM MPV 10.9 8.9 - 12.8 Fl INTERFACE SYSTEM NEUTROPHILS 85.2(H) 42.2 - 75.2 % INTERFACE SYSTEM LYMPHOCYTES 9.5(L) 24.0 - 44.0 % INTERFACE SYSTEM MONOCYTES 5.1 2.0 - 10.0 % INTERFACE SYSTEM EOSINOPHILS 0.1 0.0 - 7.0 % INTERFACE SYSTEM BASOPHILS 0.1 0.0 - 1.0 % INTERFACE SYSTEM NEUTROPHIL ABSOLUTE 14.0(H) 2.0 - 8.0 K/ul INTERFACE SYSTEM LYMPHOCYTE ABSOLUTE 1.6 1.2 - 4.0 K/ul INTERFACE SYSTEM MONOCYTE ABSOLUTE 0.8(H) 0.1 - 0.6 K/ul INTERFACE SYSTEM EOSINOPHIL ABSOLUTE 0.0 0.0 - 0.7 K/ul INTERFACE SYSTEM BASOPHILS ABSOLUTE 0.0 0.0 - 0.2 K/ul INTERFACE SYSTEM 08/15/2007 1:49 AM STOCKROOM ASSOCIATE us Edmundo Solis MD HEMATOLOGY ORDERABLES Edited Performing Organization Address [facility] Phone Number INTERFACE SYSTEM Refer to clinic/hospital department * (ABNORMAL) BASIC METABOLIC PANEL (08/15/2007 1:49 AM STOCKROOM ASSOCIATE) GLUCOSE 117(H) 70 - 110 mg/dL INTERFACE SYSTEM BUN 16 9 - 20 mg/dL INTERFACE SYSTEM CREATININE 1.6(H) 0.7 - 1.5 mg/dL INTERFACE SYSTEM SODIUM 142 136 - 145 mEq/L INTERFACE SYSTEM POTASSIUM 6.0(H) 3.5 - 5.0 mEq/L INTERFACE SYSTEM CHLORIDE 112(H) 95 - 110 mEq/L INTERFACE SYSTEM CO2 26 22 - 32 mmol/l INTERFACE SYSTEM CALCIUM 8.7 8.4 - 10.5 mg/dL INTERFACE SYSTEM ANION GAP 10 9 - 20 mEq/L INTERFACE SYSTEM OSMOLALITY, CALCULATED 297(H) 275 - 295 mOsm/Kg INTERFACE SYSTEM 08/15/2007 1:49 AM STOCKROOM ASSOCIATE us Edmundo Solis MD CHEMISTRY ORDERABLES Edited Performing Organization Address [facility] Phone Number INTERFACE SYSTEM Refer to clinic/hospital department * (ABNORMAL) POC GLUCOSE (08/15/2007 1:37 AM STOCKROOM ASSOCIATE) GLUCOSE POC 113(H) 60 - 100 mg/dL INTERFACE SYSTEM 08/15/2007 1:37 AM STOCKROOM ASSOCIATE us William G Stratmann MD POINT OF CARE TESTING Edite d Performing Organization Address [facility] de Phone Number INTERFACE SYSTEM Refer to clinic/hospital department * (ABNORMAL) POC GLUCOSE (08/14/2007 10:58 PM STOCKROOM ASSOCIATE) GLUCOSE POC 128(H) 60 - 100 mg/dL INTERFACE SYSTEM 08/14/2007 10:5 8 PM STOCKROOM ASSOCIATE us William Ramires MD POINT OF CARE TESTING Edite d Performing Organization Address [facility] Phone Number INTERFACE SYSTEM Refer to clinic/hospital department * (ABNORMAL) POC GLUCOSE (08/14/2007 8:28 PM STOCKROOM ASSOCIATE) GLUCOSE POC 126(H) 60 - 100 mg/dL INTERFACE SYSTEM 08/14/2007 8:28 PM STOCKROOM ASSOCIATE William Ramires MD POINT OF CARE TESTING Edite d Performing Organization Address [facility] de Phone Number INTERFACE SYSTEM Refer to clinic/hospital department * (ABNORMAL) POC GLUCOSE (08/14/2007 7:26 PM STOCKROOM ASSOCIATE) GLUCOSE POC 129(H) 60 - 100 mg/dL INTERFACE SYSTEM 08/14/2007 7:26 PM STOCKROOM ASSOCIATE us William Ramires MD POINT OF CARE TESTING Edite d Performing Organization Address [facility] Phone Number INTERFACE SYSTEM Refer to clinic/hospital department * (ABNORMAL) POC ISTAT EG 7+ (08/14/2007 6:40 PM STOCKROOM ASSOCIATE) SPECIMEN TYPE Arterial INTERF ROSEMARIE SYSTEM Comment: Test Performed By [id number] PEEP: 05 Pulse OX: 100 Hemoglobin calculated from Hematocrit result FIO2 50 INTERFACE SYSTEM TEMPERATURE 100.1 DegC INTERFAC E SYSTEM PH 7.34(L) 7.35 - 7.45 Unit INTERFACE SYSTEM PH TEMP CORRECT 7.32(L) 7.35 - 7.45 Unit INTERFACE SYSTEM PCO2 POC 47(H) 35 - 45 mmHg INTERFACE SYSTEM PCO2 TEMP CORRECT 48(H) 35 - 45 mmHg INTERFACE SYSTEM PO2 126(H) 80 - 105 mmHg INTERFACE SYSTEM PO2 TEMP CORRECT 131(H) 80 - 105 mmHg INTERFACE SYSTEM HCO3 (CALC) POC 24.9 22.0 - 26.0 mmol/l INTERFACE SYSTEM BASE EXCESS -1 -2 - 3 mmol/l INTERFACE SYSTEM HEMOGLOBIN POC 13.9 3 g/dL 13.5 - 18.0 g/dL INTERFACE SYSTEM HEMATOCRIT ABG 41 38 - 51 % INTER FACE SYSTEM O2 SATURATION 99(H) 95 - 98 % INTERF ROSEMARIE SYSTEM TCO2 (CALC) POC 26 23 - 27 mmol/l INTERFACE SYSTEM SODIUM 141 138 - 146 mEq/L INTERFACE SYSTEM POTASSIUM 4.8 3.5 - 4.9 mEq/L INTERFACE SYSTEM CALCIUM IONIZED 1.18 1.12 - 1.32 mmol/l INTERFACE SYSTEM 08/14/2007 6:40 PM STOCKROOM ASSOCIATE us William Ramires MD POINT OF CARE TESTING COM E dited Performing Organization Address [facility] Phone Number INTERFACE SYSTEM Refer to clinic/hospital department * (ABNORMAL) POC GLUCOSE (08/14/2007 6:22 PM STOCKROOM ASSOCIATE) GLUCOSE POC 125(H) 60 - 100 mg/dL INTERFACE SYSTEM 08/14/2007 6:22 PM STOCKROOM ASSOCIATE us William Ramires MD POINT OF CARE TESTING Edite d Performing Organization Address [facility] de Phone Number INTERFACE SYSTEM Refer to clinic/hospital department * (ABNORMAL) POC GLUCOSE (08/14/2007 5:27 PM STOCKROOM ASSOCIATE) GLUCOSE POC 128(H) 60 - 100 mg/dL INTERFACE SYSTEM 08/14/2007 5:27 PM STOCKROOM ASSOCIATE us William Ramires MD POINT OF CARE TESTING Edite d Performing Organization Address [facility] Co de Phone Number INTERFACE SYSTEM Refer to clinic/hospital department * (ABNORMAL) POC GLUCOSE (08/14/2007 4:32 PM STOCKROOM ASSOCIATE) GLUCOSE POC 129(H) 60 - 100 mg/dL INTERFACE SYSTEM 08/14/2007 4:32 PM STOCKROOM ASSOCIATE us William Ramires MD POINT OF CARE TESTING Edite d Performing Organization Address [place]/[facility] de Phone Number INTERFACE SYSTEM Refer to clinic/hospital department * (ABNORMAL) POC GLUCOSE (08/14/2007 3:33 PM STOCKROOM ASSOCIATE) GLUCOSE POC 141(H) 60 - 100 mg/dL INTERFACE SYSTEM 08/14/2007 3:33 PM STOCKROOM ASSOCIATE us William Ramires MD POINT OF CARE TESTING Edite d Performing Organization Address [place]/[facility] Phone Number INTERFACE SYSTEM Refer to clinic/hospital department * (ABNORMAL) POC GLUCOSE (08/14/2007 2:32 PM STOCKROOM ASSOCIATE) GLUCOSE POC 145(H) 60 - 100 mg/dL INTERFACE SYSTEM 08/14/2007 2:32 PM STOCKROOM ASSOCIATE us William Ramires MD POINT OF CARE TESTING Edite d Performing Organization Address [facility] Phone Number INTERFACE SYSTEM Refer to clinic/hospital department * (ABNORMAL) POC GLUCOSE (08/14/2007 1:29 PM STOCKROOM ASSOCIATE) GLUCOSE POC 139(H) 60 - 100 mg/dL INTERFACE SYSTEM 08/14/2007 1:29 PM STOCKROOM ASSOCIATE us William Ramires MD POINT OF CARE TESTING Edite d Performing Organization Address [place]/[facility] de Phone Number INTERFACE SYSTEM Refer to clinic/hospital department * (ABNORMAL) POC ISTAT EG 7+ (08/14/2007 12:15 PM STOCKROOM ASSOCIATE) SPECIMEN TYPE Arterial INTERF ROSEMARIE SYSTEM Comment: Tidal Volume: 800 Rate: 12 PEEP: 8 Pulse Ox: 100 Test performed by [id number]. FIO2 50 INTERFACE SYSTEM TEMPERATURE 97.7 DegC INTERFAC E SYSTEM PH 7.43 7.35 - 7.45 Unit INTERFACE SYSTEM PH TEMP CORRECT 7.44 7.35 - 7.45 Unit INTERFACE SYSTEM PCO2 POC 35 35 - 45 mmHg INTERFACE SYSTEM PCO2 TEMP CORRECT 34(L) 35 - 45 mmHg INTERFACE SYSTEM PO2 93 80 - 105 mmHg INTERFACE SYSTEM PO2 TEMP CORRECT 91 80 - 105 mmHg INTERFACE SYSTEM HCO3 (CALC) POC 22.9 22.0 - 26.0 mmol/l INTERFACE SYSTEM BASE EXCESS -1 -2 - 3 mmol/l INTERFACE SYSTEM HEMOGLOBIN POC 12.2 3 g/dL 13.5 - 18.0 g/dL INTERFACE SYSTEM HEMATOCRIT ABG 36(L) 38 - 51 % INTER FACE SYSTEM O2 SATURATION 98 95 - 98 % INTERF ROSEMARIE SYSTEM TCO2 (CALC) POC 24 23 - 27 mmol/l INTERFACE SYSTEM SODIUM 141 138 - 146 mEq/L INTERFACE SYSTEM POTASSIUM 3.8 3.5 - 4.9 mEq/L INTERFACE SYSTEM CALCIUM IONIZED 1.22 1.12 - 1.32 mmol/l INTERFACE SYSTEM 08/14/2007 12:1 5 PM STOCKROOM ASSOCIATE William Ramires MD POINT OF CARE TESTING COM E dited Performing Organization Address [facility] de Phone Number INTERFACE SYSTEM Refer to clinic/hospital department * (ABNORMAL) POC GLUCOSE (08/14/2007 12:09 PM STOCKROOM ASSOCIATE) GLUCOSE POC 127(H) 60 - 100 mg/dL INTERFACE SYSTEM 08/14/2007 12:0 9 PM STOCKROOM ASSOCIATE us William Ramires MD POINT OF CARE TESTING Edite d Performing Organization Address [facility] de Phone Number INTERFACE SYSTEM Refer to clinic/hospital department * (ABNORMAL) CBC WITHOUT DIFFERENTIAL (08/14/2007 12:01 PM STOCKROOM ASSOCIATE) WBC 11.8(H) 4.5 - 11.0 K/ul INTERFACE SYSTEM RBC 4.53(L) 4.60 - 6.20 Mil/ul INTERFACE SYSTEM HEMOGLOBIN 13.1(L) 14.0 - 18.0 g/dL INTERFACE SYSTEM HEMATOCRIT 38.2(L) 41.0 - 53.0 % INTERFACE SYSTEM MCV 84.3 84.0 - 103.0 Fl INTERFACE SYSTEM MCH 28.9 27.0 - 34.0 pg INTERFACE SYSTEM MCHC 34.3 30.0 - 35.0 g/dL INTERFACE SYSTEM RDW 12.0 11.0 - 14.5 % INTERFACE SYSTEM PLATELETS 163 140 - 440 K/ul INTERFACE SYSTEM MPV 10.7 8.9 - 12.8 Fl INTERFACE SYSTEM NEUTROPHILS 75.9(H) 42.2 - 75.2 % INTERFACE SYSTEM LYMPHOCYTES 16.6(L) 24.0 - 44.0 % INTERFACE SYSTEM MONOCYTES 4.5 2.0 - 10.0 % INTERFACE SYSTEM EOSINOPHILS 2.7 0.0 - 7.0 % INTERFACE SYSTEM BASOPHILS 0.3 0.0 - 1.0 % INTERFACE SYSTEM NEUTROPHIL ABSOLUTE 8.9(H) 2.0 - 8.0 K/ul INTERFACE SYSTEM LYMPHOCYTE ABSOLUTE 2.0 1.2 - 4.0 K/ul INTERFACE SYSTEM MONOCYTE ABSOLUTE 0.5 0.1 - 0.6 K/ul INTERFACE SYSTEM EOSINOPHIL ABSOLUTE 0.3 0.0 - 0.7 K/ul INTERFACE SYSTEM BASOPHILS ABSOLUTE 0.0 0.0 - 0.2 K/ul INTERFACE SYSTEM 08/14/2007 12:0 1 PM STOCKROOM ASSOCIATE us William Ramires MD HEMATOLOGY ORDERABLES Edite d INTERFACE SYSTEM Refer to clinic/hospital department * (ABNORMAL) PT AND APTT (08/14/2007 10:49 AM STOCKROOM ASSOCIATE) PROTIME 16.8(H) 12.8 - 15.8 Secs INTERFACE SYSTEM Comment: As of 2007 note change in normal range. INR 1.2 INTERFACE SYSTEM Comment: Expected Values for INR: DVT/PE Goal INR 2.5; range 2.0 - 3.0 Valve Replacement Tissue Goal INR 2.5; range 2.0 - 3.0 Mechanical Goal INR 3.0; range 2.5 - 3.5 POST-UT Goal INR 2.5; range 2.0 - 3.0 or Goal 3.0; range 2.5 - 3.5 Atrial Fibrillation Goal INR 2.5; range 2.0 - 3.0 Ischemic Stroke Goal INR 2.5; range 2.0 - 3.0 For additional information see Guidelines for Anticoagulation available from the pharmacy Hitesh Ye PTT 33.2 21.6 - 35.6 Secs INTERFACE SYSTEM Comment: Therapeutic Range: Hi-level PE/DVT heparin protocol 80.1 -95.0 sec Lo-level PE/DVT heparin protocol 67.1 - 80.0 sec Cardiac Heparin Protocol 67.1 - 85.0 sec Neuro Heparin Protocol 67.1 - 80.0 sec As of 07/10/2006 note change in APTT Normal Range. 08/14/2007 10:4 9 AM STOCKROOM ASSOCIATE us William Ramires MD HEMATOLOGY ORDERABLES Edite d INTERFACE SYSTEM Refer to clinic/hospital department * (ABNORMAL) CBC WITHOUT DIFFERENTIAL (08/14/2007 10:49 AM STOCKROOM ASSOCIATE) WBC 11.3(H) 4.5 - 11.0 K/ul INTERFACE SYSTEM RBC 4.22(L) 4.60 - 6.20 Mil/ul INTERFACE SYSTEM HEMOGLOBIN 12.1(L) 14.0 - 18.0 g/dL INTERFACE SYSTEM HEMATOCRIT 35.9(L) 41.0 - 53.0 % INTERFACE SYSTEM MCV 85.1 84.0 - 103.0 Fl INTERFACE SYSTEM MCH 28.7 27.0 - 34.0 pg INTERFACE SYSTEM MCHC 33.7 30.0 - 35.0 g/dL INTERFACE SYSTEM RDW 12.0 11.0 - 14.5 % INTERFACE SYSTEM PLATELETS 148 140 - 440 K/ul INTERFACE SYSTEM MPV 10.5 8.9 - 12.8 Fl INTERFACE SYSTEM NEUTROPHILS 74.3 42.2 - 75.2 % INTERFACE SYSTEM LYMPHOCYTES 18.1(L) 24.0 - 44.0 % INTERFACE SYSTEM MONOCYTES 4.8 2.0 - 10.0 % INTERFA CE SYSTEM EOSINOPHILS 2.6 0.0 - 7.0 % INTERF ROSEMARIE SYSTEM BASOPHILS 0.2 0.0 - 1.0 % INTERFAC E SYSTEM NEUTROPHIL ABSOLUTE 8.4(H) 2.0 - 8.0 K/ul INTERFACE SYSTEM LYMPHOCYTE ABSOLUTE 2.1 1.2 - 4.0 K/ul INTERFACE SYSTEM MONOCYTE ABSOLUTE 0.5 0.1 - 0.6 K/ul INTERFACE SYSTEM EOSINOPHIL ABSOLUTE 0.3 0.0 - 0.7 K/ul INTERFACE SYSTEM BASOPHILS ABSOLUTE 0.0 0.0 - 0.2 K/ul INTERFACE SYSTEM HEM COMMENT Smear Reviewed Automated Diff INTERFACE SYSTEM 08/14/2007 10:4 9 AM STOCKROOM ASSOCIATE William Ramires MD HEMATOLOGY ORDERABLES Edite d Performing Organization Address [facility] de Phone Number INTERFACE SYSTEM Refer to clinic/hospital department * (ABNORMAL) LIPID PANEL (08/13/2007 4:15 AM STOCKROOM ASSOCIATE) CHOLESTEROL 198 75 - 200 mg/dL INTERFACE SYSTEM HDL 23(L) 40 - 60 mg/dL INTERFACE SYSTEM CALCULATED LDL CHOLESTEROL SEE COMMENT 0 - 130 mg/dL INTERFACE SYSTEM TRIGLYCERIDE 557(H) 0 - 179 mg/dL INTERFACE SYSTEM Comment:Triglycerides >400 m g/dl; LDL calculation invalid CALCULATED TOTAL CHOLESTEROL TO HDL RATIO 8.61(H) 3.43 - 4.97 INTERFACE SYSTEM 08/13/2007 4:15 AM STOCKROOM ASSOCIATE William Ramires MD CHEMISTRY ORDERABLES Edited Performing Organization Address [facility] Phone Number INTERFACE SYSTEM Refer to clinic/hospital department * CARDIAC ENZYMES (08/13/2007 4:15 AM STOCKROOM ASSOCIATE) TROPONIN I 0.4 0.0 - 1.3 ng/mL INTERFACE SYSTEM Comment: As of 06 the Troponin Reference Range has changed from 0.0-1.5 ng/ml to 0.0- 1.3 ng/ml due to a change in testing methodology. CKMB <0.2 0.0 - 5.0 ng/mL INTERFACE SYSTEM 08/13/2007 4:15 AM STOCKROOM ASSOCIATE Michael Phillips DO CHEMISTRY ORDERABLES Edite d Performing Organization Address [facility] de Phone Number INTERFACE SYSTEM Refer to clinic/hospital department * CARDIAC ENZYMES (08/12/2007 9:56 PM STOCKROOM ASSOCIATE) TROPONIN I 0.4 0.0 - 1.3 ng/mL INTERFACE SYSTEM Comment: As of 06 the Troponin Reference Range has changed from 0.0-1.5 ng/ml to 0.0- 1.3 ng/ml due to a change in testing methodology. CKMB 0.3 0.0 - 5.0 ng/mL INTERFACE SYSTEM 08/12/2007 9:56 PM STOCKROOM ASSOCIATE Michael Phillips DO CHEMISTRY ORDERABLES Edite d INTERFACE SYSTEM Refer to clinic/hospital department * XR CHEST PA OR AP (08/12/2007 4:09 PM STOCKROOM ASSOCIATE) Anatomical Region Laterality Modality Chest Other 08/12/2007 4:09 PM STOCKROOM ASSOCIATE Narrative 08/12/2007 4:09 PM STOCKROOM ASSOCIATE Exam: Chest - PortableDate/Time of Exam: Aug 18, 2007 8:08:35 AMHistory: Post-operative. Comparison 08/15/2007 0417 hours. Patient is status post median sternotomy with minimal rotation to theleft. Left chest tube is unchanged. Left subclavian Esbon-Ward catheter has been removed. There isimproved aeration of the medial right lung base with persistent left basilar atelectasis versusinfiltrate identified. Impression: 1. Post operative chest with improved aeration of the medial right lung base with residual left basilaratelectasis versus infiltrate. 2. Status post left subclavian Esbon-Ward catheter removal. - Dictated By: Bryanna Bach M.D. Electronically Signed By: Bryanna Bach M.D. Date Signed: 08/18/07 SDM Procedure Note 06/25/2009 Exam: Chest - PortableDate/Time of Exam: Aug 18, 2007 8:08:35 AMHistory: Post-operative. Comparison 08/15/2007 0417 hours. Patient is status post median sternotomywith minimal rotation to theleft. Left chest tube is unchanged. Left subclavian Esbon-Ward catheterhas been removed. There isimproved aeration of the medial right lung base with persistent leftbasilar atelectasis versusinfiltrate identified. Impression: 1. Post operative chest with improved aeration of the medial right lungbase with residual left basilaratelectasis versus infiltrate. 2. Status post left subclavian Esbon-Ward catheter removal. - Dictated By: Bryanna Bach M.D. Electronically Signed By: Bryanna Bach M.D. Date Signed: 08/18/07 SDM [facility]med Physician S[facility] DIAGNOSTIC IMAGING O RDERABLES Final Result * XR CHEST PA OR AP (08/12/2007 4:09 PM STOCKROOM ASSOCIATE) Anatomical Region Laterality Modality Chest Other 08/12/2007 4:09 PM STOCKROOM ASSOCIATE Narrative 08/12/2007 4:09 PM STOCKROOM ASSOCIATE Exam: Chest - PortableDate/Time of Exam: Aug 15, 2007 4:48:38 AMHistory: Please see order comments. Comparisons: 08/14/2007 at 1107. Findings: Patient is status post median sternotomy. There has been interval extubation and removal ofthe NG tube noted on prior examination. Left subclavian Esbon-Ward catheter and a single left-sidedchest tube are again noted stable. Left base atelectasis and/or infiltrate is noted, slightlyworsened. Right base atelectasis is noted, stable. No evidence for pneumothorax. Osseous structuresappear within normal limits. Impressions: 1. Interval extubation and removal of NG tube. 2. Bibasilar atelectasis and/or infiltrates, left greater than right, slightly worsened on the leftwhen compared to prior examination. 3. Remaining support tubes and lines are stable. - Dictated By: Alex Moore M.D., Ph.D. Electronically Signed By: Alex Moore M.D., Ph.D. Date Signed: 08/16/07 AMA Procedure Note 06/25/2009 Exam: Chest - PortableDate/Time of Exam: Aug 15, 2007 4:48:38 AMHistory: Please see order comments. Comparisons: 08/14/2007 at 1107. Findings: Patient is status post median sternotomy. There has been intervalextubation and removal ofthe NG tube noted on prior examination. Left subclavian Esbon-Ward catheter and asingle left-sidedchest tube are again noted stable. Left base atelectasis and/or infiltrate is noted,slightlyworsened. Right base atelectasis is noted, stable. No evidence for pneumothorax. Osseousstructuresappear within normal limits. Impressions: 1. Interval extubation and removal of NG tube. 2. Bibasilar atelectasis and/or infiltrates, left greater than right,slightly worsened on the leftwhen compared to prior examination. 3. Remaining support tubes and lines are stable. - Dictated By: Alex Moore M.D., Ph.D. Electronically Signed By: Alex Moore M.D., Ph.D. Date Signed: 08/16/07 AMA Historical Provider DIAGNOSTIC IMAGING ORDERABLE S Final Result * XR CHEST PA OR AP (08/12/2007 4:09 PM STOCKROOM ASSOCIATE) Anatomical Region Laterality Modality Chest Other 08/12/2007 4:09 PM STOCKROOM ASSOCIATE Narrative 08/12/2007 4:09 PM STOCKROOM ASSOCIATE Exam: Chest - PortableDate/Time of Exam: Aug 14, 2007 11:27:25 AMHistory: Post-operative. Findings: Comparison dated 08/08/2007 at 1511 hours. The postoperative changes of median sternotomy arenoted. An ET tube is in place with its tip at the orifice of the right mainstem bronchus. A leftchest tube is in position. I do not see a pneumothorax. There is blunting of the left costophrenicangle which may indicate the presence of a very small pleural fluid collection. A Esbon-Ganzcatheter enters from the left subclavian vein and its tip is directed into the right main pulmonaryartery. Two mediastinal drainage tubes are in place. A nasogastric tube is directed into thestomach. The cardiac silhouette is within normal limits for size. There is some vague atelectasisor infiltrate in the left lung base medially. There is some discoid atelectasis in the rightinfrahilar region. Impression: 1. Tubes and catheters in position as noted. 2. Minimal pleural fluid at the left costophrenic angle. 3. Small amount of atelectasis in the medial aspect of the lower lobes bilaterally. - Dictated By: Delio Ellington M.D. Electronically Signed By: Delio Ellington M.D. Date Signed: 08/24/07 [facility] Procedure Note 06/25/2009 Exam: Chest - PortableDate/Time of Exam: Aug 14, 2007 11:27:25 AMHistory: Post-operative. Findings: Comparison dated 08/08/2007 at 1511 hours. The postoperative changes ofmedian sternotomy arenoted. An ET tube is in place with its tip at the orifice of the right mainstembronchus. A leftchest tube is in position. I do not see a pneumothorax. There is blunting of the leftcostophrenicangle which may indicate the presence of a very small pleural fluid collection. ASwan-Ganzcatheter enters from the left subclavian vein and its tip is directed into the right mainpulmonaryartery. Two mediastinal drainage tubes are in place. A nasogastric tube is directed into thestomach. Thecardiac silhouette is within normal limits for size. There is some vague atelectasisor infiltrate inthe left lung base medially. There is some discoid atelectasis in the rightinfrahilar region. Impression: 1. Tubes and catheters in position as noted. 2. Minimal pleural fluid at the left costophrenic angle. 3. Small amount of atelectasis in the medial aspect of the lower lobesbilaterally. - Dictated By: Delio Ellington M.D. Electronically Signed By: Delio Ellington M.D. Date Signed: 08/24/07 [facility] Harpreet Boyce MD DIAGNOSTIC IMAGING ORDERABLES Fi nal Result * (ABNORMAL) CBC WITH DIFFERENTIAL (08/12/2007 3:55 PM STOCKROOM ASSOCIATE) WBC 9.8 4.5 - 11.0 K/ul INTERFACE SYSTEM RBC 5.27 4.60 - 6.20 Mil/ul INTERFACE SYSTEM HEMOGLOBIN 15.6 14.0 - 18.0 g/dL INTERFACE SYSTEM HEMATOCRIT 44.8 41.0 - 53.0 % INTERFACE SYSTEM MCV 85.0 84.0 - 103.0 Fl INTERFACE SYSTEM MCH 29.6 27.0 - 34.0 pg INTERFACE SYSTEM MCHC 34.8 30.0 - 35.0 g/dL INTERFACE SYSTEM RDW 12.1 11.0 - 14.5 % INTERFACE SYSTEM PLATELETS 267 140 - 440 K/ul INTERFACE SYSTEM MPV 11.0 8.9 - 12.8 Fl INTERFACE SYSTEM NEUTROPHILS 70.9 42.2 - 75.2 % INTERFACE SYSTEM LYMPHOCYTES 17.4(L) 24.0 - 44.0 % INTERFACE SYSTEM MONOCYTES 7.6 2.0 - 10.0 % INTERFACE SYSTEM EOSINOPHILS 3.7 0.0 - 7.0 % INTERFACE SYSTEM BASOPHILS 0.4 0.0 - 1.0 % INTERFACE SYSTEM NEUTROPHIL ABSOLUTE 6.9 2.0 - 8.0 K/ul INTERFACE SYSTEM LYMPHOCYTE ABSOLUTE 1.7 1.2 - 4.0 K/ul INTERFACE SYSTEM MONOCYTE ABSOLUTE 0.7(H) 0.1 - 0.6 K/ul INTERFACE SYSTEM EOSINOPHIL ABSOLUTE 0.4 0.0 - 0.7 K/ul INTERFACE SYSTEM BASOPHILS ABSOLUTE 0.0 0.0 - 0.2 K/ul INTERFACE SYSTEM 08/12/2007 3:55 PM STOCKROOM ASSOCIATE Michael Phillips DO HEMATOLOGY ORDERABLES Edit ed Performing Organization Address [facility] Phone Number INTERFACE SYSTEM Refer to clinic/hospital department * PTT (08/12/2007 3:55 PM STOCKROOM ASSOCIATE) PTT 27.4 21.6 - 35.6 Secs INTERFACE SYSTEM Comment: Therapeutic Range: Hi-level PE/DVT heparin protocol 80.1 -95.0 sec Lo-level PE/DVT heparin protocol 67.1 - 80.0 sec Cardiac Heparin Protocol 67.1 - 85.0 sec Neuro Heparin Protocol 67.1 - 80.0 sec As of 07/10/2006 note change in APTT Normal Range. 08/12/2007 3:55 PM STOCKROOM ASSOCIATE us Michael Phillips DO HEMATOLOGY ORDERABLES Edit ed Performing Organization Address [facility] de Phone Number INTERFACE SYSTEM Refer to clinic/hospital department * PROTIME-INR (08/12/2007 3:55 PM STOCKROOM ASSOCIATE) Pathologist [facility] [place] PROTIME 13.2 12.8 - 15.8 Secs INTERFACE SYSTEM Comment: As of 2007 note change in normal range. INR 0.9 INTERFACE SYSTEM Comment: Expected Values for INR: DVT/PE Goal INR 2.5; range 2.0 - 3.0 Valve Replacement Tissue Goal INR 2.5; range 2.0 - 3.0 Mechanical Goal INR 3.0; range 2.5 - 3.5 POST-UT Goal INR 2.5; range 2.0 - 3.0 or Goal 3.0; range 2.5 - 3.5 Atrial Fibrillation Goal INR 2.5; range 2.0 - 3.0 Ischemic Stroke Goal INR 2.5; range 2.0 - 3.0 For additional information see Guidelines for Anticoagulation available from the pharmacy Hitesh Ye D. 08/12/2007 3:55 PM STOCKROOM ASSOCIATE us Michael Phillips DO HEMATOLOGY ORDERABLES Edit ed Performing Organization Address [facility] Phone Number INTERFACE SYSTEM Refer to clinic/hospital department * BASIC METABOLIC PANEL (08/12/2007 3:55 PM STOCKROOM ASSOCIATE) Pathologist [facility] [place] GLUCOSE 88 70 - 110 mg/dL INTERFACE SYSTEM BUN 11 9 - 20 mg/dL INTERFACE SYSTEM CREATININE 0.8 0.7 - 1.5 mg/dL INTERFACE SYSTEM SODIUM 140 136 - 145 mEq/L INTERFACE SYSTEM POTASSIUM 4.4 3.5 - 5.0 mEq/L INTERFACE SYSTEM Comment:Specimen slightly he molyzed. CHLORIDE 103 95 - 110 mEq/L INTERFACE SYSTEM CO2 29 22 - 32 mmol/l INTERFACE SYSTEM CALCIUM 9.9 8.4 - 10.5 mg/dL INTERFACE SYSTEM ANION GAP 12 9 - 20 mEq/L INTERFACE SYSTEM OSMOLALITY, CALCULATED 287 275 - 295 mOsm/Kg INTERFACE SYSTEM 08/12/2007 3:55 PM STOCKROOM ASSOCIATE us Michael Phillips DO CHEMISTRY ORDERABLES Edite d Performing Organization Address [facility] Phone Number INTERFACE SYSTEM Refer to clinic/hospital department * CARDIAC ENZYMES (08/12/2007 3:55 PM STOCKROOM ASSOCIATE) TROPONIN I 0.3 0.0 - 1.3 ng/mL INTERFACE SYSTEM Comment: As of 06 the Troponin Reference Range has changed from 0.0-1.5 ng/ml to 0.0- 1.3 ng/ml due to a change in testing methodology. CKMB <0.2 0.0 - 5.0 ng/mL INTERFACE SYSTEM 08/12/2007 3:55 PM STOCKROOM ASSOCIATE Michael Phillips DO CHEMISTRY ORDERABLES Edite d INTERFACE SYSTEM Refer to clinic/hospital department documented in this encounter Visit Diagnoses Diagnosis Chest pain, unspecified documented in this encounter Care Teams Leg Breaker Relationship Specialty Start Date End Date Primitivo Crowder MD [address] [place] [phone] PCP - General Family Practice 05/20/14 documented as of this encounter
--- OUTSIDE RECORDS SUMMARY | 2025-04-26 04:25 | XMS_ITS | Encounter Summary ---
Author Organization [facility] Address [address] [place] [address] Care Team Providers Care Volleyball Commentator Name Role Phone Primitivo Crowder MD Primary Care Provider [phone] Encounter Details Date Type Department Care Team (Latest Contact Info) Description 10/03/1999 Outpatient Historical [address] [phone] Primitivo Crowder MD [address] [place] [phone] Myalgia and myositis, unspecified (Primary Dx); Nonspecific abnormal results of liver function study; Unspecified essential hypertension; Other and unspecified hyperlipidemia Social History Tobacco Use Types Packs/Day Years Used Date Smoking Tobacco: Never Assessed Sex and Gender Information Value Date Recorded Sex Assigned at Not on file 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 Gender Identity Not on file Sexual Orientation Not on file documented as of this encounter Plan of Treatment Not on file documented as of this encounter Visit Diagnoses Diagnosis Myalgia and myositis, unspecified- Primary Mylagia and myositis, unspecified Nonspecific abnormal results of liver function study Unspecified essential hypertension Other and unspecified hyperlipidemia documented in this encounter Care Teams Volleyball Commentator Relationship Specialty Start Date End Date Primitivo Crowder MD [address] [phone] PCP - General Family Practice 05/20/14 documented as of this encounter
--- OUTSIDE RECORDS SUMMARY | 2025-04-26 04:25 | XMS_ITS | Encounter Summary ---
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
--- OUTSIDE RECORDS SUMMARY | 2025-04-26 04:25 | XMS_ITS | Encounter Summary ---
Author Organization [facility] Address [address] [place] [address] Care Team Providers Care Manager Transportation Name Role Phone Primitivo Crowder MD Primary Care Provider [phone] Encounter Details Date Type Department Care Team (Latest Contact Info) Description 03/26/2001 Outpatient Historical [facility] [place] [address] [phone] Mg Young MD [address] [place] [address] Chest pain, unspecified (Primary Dx) Social History Tobacco Use Types Packs/Day Years Used Date Smoking Tobacco: Never Assessed Sex and Gender Information Value Date Recorded Sex Assigned at Not on file 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
--- OUTSIDE RECORDS SUMMARY | 2025-04-26 04:25 | XMS_ITS | Encounter Summary ---
Author Organization [facility] Address [address] [place] [address] Care Team Providers Care Calcine Furnace Tender Name Role Phone Primitivo Crowder MD Primary Care Provider [phone] Encounter Details Date Type Department Care Team (Latest Contact Info) Description 03/30/2001 Outpatient Historical [facility] [address] [phone] Primitivo Crowder MD [address] [place] [phone] Chest pain, unspecified (Primary Dx); Other and unspecified hyperlipidemia; Unspecified essential hypertension Social History Tobacco Use Types Packs/Day Years Used Date Smoking Tobacco: Never Assessed Sex and Gender Information Value Date Recorded Sex Assigned at Not on file 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
--- OUTSIDE RECORDS SUMMARY | 2025-04-26 04:25 | XMS_ITS | Encounter Summary ---
Author Organization [facility] Address [address] [place] [address] Care Team Providers Care Journey Lineman Name Role Phone Primitivo Crowder MD Primary Care Provider [phone] Encounter Details Date Type Department Care Team (Late st Contact Info) Description 09/01/2007 Outpatient Historical [facility] [place] [address] [place] [phone] Edmundo Solis MD [address] [phone] Social History Tobacco Use Types Packs/Day Years Used Date Smoking Tobacco: Never Assessed Sex and Gender Information Value Date Recorded Sex Assigned at Not on file 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 Not dictated. Pulse: 92. BP: 136/80. CURRENT MEDICATIONS: 1. Metoprolol 50 mg b.i.d. 2. Lisinopril 5 mg daily. 3. Lipitor 10 mg daily. 4. Omeprazole 20 mg daily. 5. Aspirin 81 mg daily. 6. Cefdinir 300 mg b.i.d. for 10 days that he was placed on by outside nurse practitioner. 7. He also has a prescription for hydrochlorothiazide that he has not filled. HISTORY: The patient presented to the emergency room for sensation of palpitations and was placed on a monitoring specialist. He was still on the monitor. He is due to come off and be evaluated later today. PHYSICAL EXAM: VITAL SIGNS: His pulse is very irregular. SKIN: His incisions are all healing well, which is important given the amount of psoriasis that he has. DISPOSITION: He has been very inactive since leaving the hospital and I strongly encouraged him to increase his activity. He has an appointment on September [address] Ramires and I would like him to follow up with Dr. Primitivo Crowder as well. He requested more pain medication. He is not taking it during the day, but they do seem to help him sleep at night. Therefore I have given him another prescription for Percocet. I think he is released to resume driving as well. Edmundo Solis M.D. Cardiac, Thoracic, & Vascular Surgery Electronically Signed by Edmundo Solis M.D. 09/02/2007 15:45 , A, 615 Job #: Document #: [id number] cc: MIXER documented in this encounter Plan of Treatment Not on file documented as of this encounter Visit Diagnoses Not on filedocumented in this encounter Care Teams Journey Lineman Relationship Specialty Start Date End Date Primitivo Crowder MD [address] [place] [address] PCP - General Family Practice 05/20/14 documented as of this encounter
--- OUTSIDE RECORDS SUMMARY | 2025-04-26 04:25 | XMS_ITS | Encounter Summary ---
Author Organization [facility] Address [address] [place] [address] Care Team Providers Care Hop Worker Name Role Phone Primitivo Crowder MD Primary Care Provider [phone] Encounter Details Date Type Department Care Team (Latest Contact Info) Description 09/26/1999 Outpatient Historical [address] [phone] Primitivo Crowder MD [address] [place] [phone] Unspecified essential hypertension (Primary Dx); Other and unspecified hyperlipidemia; Hyperpotassemia; Other malaise and fatigue Social History Tobacco Use Types Packs/Day Years Used Date Smoking Tobacco: Never Assessed Sex and Gender Information Value Date Recorded Sex Assigned at Not on file 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
--- OUTSIDE RECORDS SUMMARY | 2025-04-26 04:25 | XMS_ITS | Encounter Summary ---
Author Organization [facility] Address [address] [place] [address] Care Team Providers Care Build Master Name Role Phone Primitivo Crowder MD Primary Care Provider [phone] Encounter Details Date Type Department Care Team (Late st Contact Info) Description 09/15/2007 Outpatient Historical HIS IN BED Sj Ed, Physician NO ADDRESS ON FILE Allen Gaspar, NO ADDRESS ON FILE William Ramires MD [address] [address] [place] [phone] Unspecified Chest Pain Social History Tobacco Use Types Packs/Day Years Used Date Smoking Tobacco: Never Assessed Sex and Gender Information Value Date Recorded Sex Assigned at Not on file Legal Sex Male 4:47 AM KILN DOOR REPAIRER Gender Identity Not on file Sexual Orientation Not on file documented as of this encounter Plan of Treatment Not on file documented as of this encounter Procedures Procedure Name Priority Date/Time Associated Diagnosis Comments CARDIAC ENZYMES Routine 09/16/2007 6:21 AM KILN DOOR REPAIRER SEDIMENTATION RATE Stat 09/16/2007 6: 21 AM KILN DOOR REPAIRER LIPASE Stat 09/16/2007 6:21 AM KILN DOOR REPAIRER AMYLASE Stat 09/16/2007 6:21 AM KILN DOOR REPAIRER HEPATIC FUNCTION PANEL Stat 8 6:21 AM KILN DOOR REPAIRER CARDIAC ENZYMES Routine 09/16/2007 12:22 AM KILN DOOR REPAIRER XR CHEST PA OR AP 1 VW Stat 8 6:29 PM KILN DOOR REPAIRER CARDIAC ENZYMES Stat 09/15/2007 6:18 PM KILN DOOR REPAIRER CBC WITH DIFFERENTIAL Stat 09/15/2007 6:18 PM KILN DOOR REPAIRER PTT Stat 09/15/2007 6:18 PM KILN DOOR REPAIRER PROTIME-INR Stat 09/15/2007 6:18 PM KILN DOOR REPAIRER BASIC METABOLIC PANEL Stat 09/15/2007 6:18 PM KILN DOOR REPAIRER documented in this encounter Results * SEDIMENTATION RATE (09/16/2007 6:21 AM KILN DOOR REPAIRER) Pathologist [facility] ESR (SEDIMENTATION RATE) 18 0 - 20 mm/hr [facility] Blood specimen (specimen) 09/16/2007 6:21 AM KILN DOOR REPAIRER 09/16/2007 8:50 AM KILN DOOR REPAIRER William Ramires MD HEMATOLOGY ORDERABLES Final Result Performing Organization Address [facility] de Phone Number [facility] [address] [place] [address] * AMYLASE (09/16/2007 6:21 AM KILN DOOR REPAIRER) Pathologist [facility] AMYLASE 61 20 - 104 U/L [facility] Blood specimen (specimen) 09/16/2007 6:21 AM KILN DOOR REPAIRER 09/16/2007 8:20 AM KILN DOOR REPAIRER William Ramires MD CHEMISTRY ORDERABLES Final Result Performing Organization Address [facility] de Phone Number [facility] [address] [place] [address] * HEPATIC FUNCTION PANEL (09/16/2007 6:21 AM KILN DOOR REPAIRER) BILIRUBIN DIRECT 0.3 0.0 - 0.4 mg/dL [facility] AST 22 8 - 33 U/L [facility] ALBUMIN 4.4 3.5 - 5.0 g/dL [facility] ALT 34 4 - 36 IU/L [facility] ALKALINE PHOSPHATASE 76 25 - 100 U/L [facility] BILIRUBIN TOTAL 1.1 0.3 - 1.2 mg/dL [facility] TOTAL PROTEIN 7.0 6.3 - 8.2 g/dL [facility] Comment:Slight Lipemia Blood specimen (specimen) 09/16/2007 6:21 AM KILN DOOR REPAIRER 09/16/2007 8:20 AM KILN DOOR REPAIRER William Ramires MD CHEMISTRY ORDERABLES Final Result Performing Organization Address [facility] Phone Number [facility] [address] [place] [address] * LIPASE (09/16/2007 6:21 AM KILN DOOR REPAIRER) LIPASE 40 6 - 51 U/L [facility] Blood specimen (specimen) 09/16/2007 6:21 AM KILN DOOR REPAIRER 09/16/2007 8:20 AM KILN DOOR REPAIRER William Ramires MD CHEMISTRY ORDERABLES Final Result Performing Organization Address [facility] Number [facility] [address] [place] [address] * CARDIAC ENZYMES (09/16/2007 6:21 AM KILN DOOR REPAIRER) TROPONIN I <0.1 0.0 - 1.3 ng/mL [facility] CKMB 0.4 0.0 - 5.0 ng/mL [facility] Blood specimen (specimen) 09/16/2007 6:21 AM KILN DOOR REPAIRER 09/16/2007 6:27 AM KILN DOOR REPAIRER Allen Gaspar DO CHEMISTRY ORDERABLES Final Result Performing Organization Address [facility] de Phone Number [facility] [address] [place] [address] * CARDIAC ENZYMES (09/16/2007 12:22 AM KILN DOOR REPAIRER) TROPONIN I <0.1 0.0 - 1.3 ng/mL [facility] CKMB 0.4 0.0 - 5.0 ng/mL [facility] Blood specimen (specimen) 09/16/2007 12:22 AM KILN DOOR REPAIRER 09/16/2007 12:28 AM KILN DOOR REPAIRER Allenhair Gaspar DO CHEMISTRY ORDERABLES Final Result [facility] [address] [place] [address] * XR CHEST PA OR AP (09/15/2007 6:29 PM KILN DOOR REPAIRER) Anatomical Region Laterality Modality Chest Other 09/15/2007 6:29 PM KILN DOOR REPAIRER Narrative 09/15/2007 6:30 PM KILN DOOR REPAIRER Exam: Chest - PA Date/Time of Exam: Sep 15, 2007 6:29:59 PM History: Chest pain. Comparison: Prior exam dated 08/30/2007. Findings: Lung hernadez are clear of confluent infiltrates and effusions. Old blunting of the left CP angle is present. Postsurgical sternotomy sutures are present. Cardiac silhouette and pulmonary vasculature are unremarkable. Comparison to prior study 08/30/2007 shows no new findings. Impression: Stable study. - Procedure Note Marcus Bianchi - 09/16/2007 Exam: Chest - PA Date/Time of Exam: Sep 15, 2007 6:29:59 PM History: Chest pain. Comparison: Prior exam dated 08/30/2007. Findings: Lung hernadez are clear of confluent infiltrates and effusions. Old bluntingof the left CP angle is present. Postsurgical sternotomy sutures are present. Cardiac silhouetteand pulmonary vasculature are unremarkable. Comparison to prior study 08/30/2007 shows no newfindings. Impression: Stable study. - Allen A Hubert DO DIAGNOSTIC IMAGING ORDERAB LES Final Result * (ABNORMAL) BASIC METABOLIC PANEL (09/15/2007 6:18 PM KILN DOOR REPAIRER) Pathologist [facility] GLUCOSE 87 70 - 110 mg/dL [facility] CHLORIDE 104 95 - 110 mEq/L [facility] ANION GAP 15 9 - 20 mEq/L [facility] SODIUM 142 136 - 145 mEq/L [facility] BUN 19 9 - 20 mg/dL [facility] CO2 27 22 - 32 mmol/l [facility] POTASSIUM 4.1 3.5 - 5.0 mEq/L [facility] OSMOLALITY, CALCULATED 293 275 - 295 mOsm/Kg [facility] CREATININE 1.0 0.7 - 1.5 mg/dL [facility] CALCIUM 10.7(H) 8.4 - 10.5 mg/dL [facility] Blood specimen (specimen) 09/15/2007 6:18 PM KILN DOOR REPAIRER 09/15/2007 6:22 PM KILN DOOR REPAIRER Allen Gaspar DO CHEMISTRY ORDERABLES Final Result Performing Organization Address City/State/[facility] Co de Phone Number [facility] [address] [place] [address] * (ABNORMAL) CBC WITH DIFFERENTIAL (09/15/2007 6:18 PM KILN DOOR REPAIRER) [facility] BASOPHILS 0.2 0.0 - 1.0 % [facility] MPV 11.0 8.9 - 12.[address] [facility] BASOPHILS ABSOLUTE 0.0 0.0 - 0.2 K/ul [facility] MCV 84.5 84.0 - 103.[address] [facility] MONOCYTES 7.4 2.0 - 10.0 % [facility] MONOCYTE ABSOLUTE 0.7(H) 0.1 - 0.6 K/ul [facility] HEMOGLOBIN 14.3 14.0 - 18.0 g/dL [facility] NEUTROPHILS 66.0 42.2 - 75.2 % [facility] RDW 12.2 11.0 - 14.5 % [facility] NEUTROPHIL ABSOLUTE 6.2 2.0 - 8.0 K/ul [facility] WBC 9.3 4.5 - 11.0 K/ul [facility] MCH 28.8 27.0 - 34.[address] [facility] EOSINOPHIL ABSOLUTE 0.3 0.0 - 0.7 K/ul [facility] EOSINOPHILS 3.3 0.0 - 7.0 % [facility] HEMATOCRIT 42.0 41.0 - 53.0 % [facility] PLATELETS 282 140 - 440 K/ul [facility] LYMPHOCYTE ABSOLUTE 2.2 1.2 - 4.0 K/ul [facility] LYMPHOCYTES 23.1(L) 24.0 - 44.0 % [facility] RBC 4.97 4.60 - 6.20 Mil/ul [facility] MCHC 34.0 30.0 - 35.0 g/dL [facility] Blood specimen (specimen) 09/15/2007 6:18 PM KILN DOOR REPAIRER 09/15/2007 6:22 PM KILN DOOR REPAIRER Allen Gaspar DO HEMATOLOGY ORDERABLES Maci l Result Performing Organization Address [facility] de Phone Number [facility] [address] [place] [address] * PTT (09/15/2007 6:18 PM KILN DOOR REPAIRER) PTT 28.0 21.6 - 35.[address] [facility] Comment: Therapeutic Range: Hi-level PE/DVT heparin protocol 80.1 -95.0 sec Lo-level PE/DVT heparin protocol 67.1 - 80.0 sec Cardiac Heparin Protocol 67.1 - 85.0 sec Neuro Heparin Protocol 67.1 - 80.0 sec As of 07/10/2006 note change in APTT Normal Range. Blood specimen (specimen) 09/15/2007 6:18 PM KILN DOOR REPAIRER 09/15/2007 6:22 PM KILN DOOR REPAIRER Allen Gaspar DO HEMATOLOGY ORDERABLES Maci l Result Performing Organization Address City/State/[facility] Co de Phone Number [facility] [address] [place] [address] * PROTIME-INR (09/15/2007 6:18 PM KILN DOOR REPAIRER) PROTIME 14.3 12.8 - 15.[address] [facility] Comment:As of 2007 not e change in normal range. INR 1.0 [facility] Comment: ansi Expected Values for INR: DVT/PE Goal INR 2.5; range 2.0 - 3.0 Valve Replacement Tissue Goal INR 2.5; range 2.0 - 3.0 Mechanical Goal INR 3.0; range 2.5 - 3.5 POST-MA Goal INR 2.5; range 2.0 - 3.0 or Goal 3.0; range 2.5 - 3.5 Atrial Fibrillation Goal INR 2.5; range 2.0 - 3.0 Ischemic Stroke Goal INR 2.5; range 2.0 - 3.0 For additional information see Guidelines for Anticoagulation available from the pharmacy Hitesh Ye. [phone] Blood specimen (specimen) 09/15/2007 6:18 PM KILN DOOR REPAIRER 09/15/2007 6:22 PM KILN DOOR REPAIRER Allen Gaspar DO HEMATOLOGY ORDERABLES Maci l Result Performing Organization Address [facility] Phone Number [facility] [address] [place] [address] * CARDIAC ENZYMES (09/15/2007 6:18 PM KILN DOOR REPAIRER) CKMB 0.4 0.0 - 5.0 ng/mL [facility] TROPONIN I <0.1 0.0 - 1.3 ng/mL [facility] Blood specimen (specimen) 09/15/2007 6:18 PM KILN DOOR REPAIRER 09/15/2007 6:22 PM KILN DOOR REPAIRER Allen Gaspar DO CHEMISTRY ORDERABLES Final Result Performing Organization Address [facility] Phone Number [facility] [address] [place] [address] documented in this encounter Visit Diagnoses Diagnosis Chest pain, unspecified documented in this encounter Care Teams Build Master Relationship Specialty Start Date End Date Primitivo Crowder MD [address] [place] [address] PCP - General Family Practice 05/20/14 documented as of this encounter
--- OUTSIDE RECORDS SUMMARY | 2025-04-26 04:25 | XMS_ITS | Encounter Summary ---
Author Organization [facility] Address [address] [place] [address] Care Team Providers Care Veterinary Practitioner Name Role Phone Primitivo Crowder MD Primary Care Provider [phone] Encounter Details Date Type Department Care Team (Latest Contact Info) Description 06/20/1999 Outpatient Historical [facility] Medicine [place] [address] [place] [phone] Mg Young MD [address] [place] [address] Unspecified essential hypertension (Primary Dx); Cervicalgia Social History Tobacco Use Types Packs/Day Years Used Date Smoking Tobacco: Never Assessed Sex and Gender Information Value Date Recorded Sex Assigned at Not on file Legal Sex Male 4:47 AM MENTAL HEALTH WORKER Gender Identity Not on file Sexual Orientation Not on file documented as of this encounter Plan of Treatment Not on file documented as of this encounter Visit Diagnoses Diagnosis Unspecified essential hypertension- Primary Cervicalgia documented in this encounter Care Teams Veterinary Practitioner Relationship Specialty Start Date End Date Primitivo Crowder MD [address] [place] [phone] PCP - General Family Practice 05/20/14 documented as of this encounter
--- OUTSIDE RECORDS SUMMARY | 2025-04-26 04:25 | XMS_ITS | Encounter Summary ---
Author Organization [facility] Address [address] [place] [address] Care Team Providers Care Commercial Litigation Attorney Name Role Phone Primitivo Crowder MD Primary Care Provider [phone] Encounter Details Date Type Department Care Team (Latest Contact Info) Description 02/16/2001 Outpatient [facility] [address] [phone] Primitivo Crowder MD [address] [place] [address] Acute upper respiratory infections of unspecified site (Primary Dx); Unspecified asthma(493.90) Social History Tobacco Use Types Packs/Day Years Used Date Smoking Tobacco: Never Assessed Sex and Gender Information Value Date Recorded Sex Assigned at Not on file Legal 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
--- OUTSIDE RECORDS SUMMARY | 2025-04-26 04:25 | XMS_ITS | Encounter Summary ---
Author Organization [facility] Address [address] [place] [address] Care Team Providers Care Telecommunications Consultant Name Role Phone Primitivo Crowder MD Primary Care Provider [phone] Encounter Details Date Type Department Care Team (Latest Contact Info) Description 09/10/2000 Outpatient Historical [address] [phone] Primitivo Crowder MD [address] [place] [address] Irritable bowel syndrome (Primary Dx); Unspecified essential hypertension; Other malaise and fatigue; Dizziness and giddiness Social History Tobacco Use Types Packs/Day Years Used Date Smoking Tobacco: Never Assessed Sex and Gender Information Value Date Recorded Sex Assigned at Not on file Legal Sex Male 4:47 AM TOMBSTONE ERECTOR Gender Identity Not on file Sexual Orientation Not on file documented as of this encounter Plan of Treatment Not on file documented as of this encounter Visit Diagnoses Diagnosis Irritable bowel syndrome- Primary Unspecified essential hypertension Other malaise and fatigue Dizziness and giddiness documented in this encounter Care Teams Telecommunications Consultant Relationship Specialty Start Date End Date Primitivo Crowder MD [address] [phone] PCP - General Family Practice 05/20/14 documented as of this encounter
--- OUTSIDE RECORDS SUMMARY | 2025-04-26 04:25 | XMS_ITS | Encounter Summary ---
Author Organization [facility] Address [address] [place] [address] Care Team Providers Care Military Pilot Name Role Phone Primitivo Crowder MD Primary Care Provider [phone] Encounter Details Date Type Department Care Team (Latest Contact Info) Description 06/08/1999 Outpatient Historical [facility] [address] [place] [phone] Mg Young MD [address] [place] [address] Unspecified essential hypertension (Primary Dx); Other and unspecified hyperlipidemia Social History Tobacco Use Types Packs/Day Years Used Date Smoking Tobacco: Never Assessed Sex and Gender Information Value Date Recorded Sex Assigned at Not on file Legal 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
--- OUTSIDE RECORDS SUMMARY | 2025-04-26 04:25 | XMS_ITS | Encounter Summary ---
Author Organization [facility] Address [address] [place] [address] Care Team Providers Care Field Party Manager Name Role Phone Primitivo Crowder MD Primary Care Provider [phone] Encounter Details Date Type Department Care Team (Late st Contact Info) Description 09/15/2007 Outpatient Historical [facility] [address] 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
--- OUTSIDE RECORDS SUMMARY | 2025-04-26 04:25 | XMS_ITS | Encounter Summary ---
Author Organization [facility] Address [address] [facility] Attn: [place] [address] Care Team Providers Care Cisco Certified Network Associate Name Role Phone Primitivo Crowder MD Primary Care Provider [phone] Encounter Details Date Type Department Care Team (Late st Contact Info) Description 07/30/2000 Outpatient Historical Primitivo Crowder MD [address] [place] [address] Social History Tobacco Use Types Packs/Day Years Used Date Smoking Tobacco: Never Assessed Sex and Gender Information Value Date Recorded Sex Assigned at Not on file Legal 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
--- OUTSIDE RECORDS SUMMARY | 2025-04-26 04:25 | XMS_ITS | Encounter Summary ---
Author Organization [facility] Address [address] [place] [address] Care Team Providers Care Soil Sort Worker Name Role Phone Primitivo Crowder MD Primary Care Provider [phone] Encounter Details Date Type Department Care Team (Latest Contact Info) Description 08/08/2000 Outpatient Historical [facility] [address] [phone] Primitivo Crowder MD [address] [place] [phone] Abdominal pain, unspecified site (Primary Dx); Unspecified essential hypertension Social History Tobacco Use Types Packs/Day Years Used Date Smoking Tobacco: Never Assessed Sex and Gender Information Value Date Recorded Sex Assigned at Not on file Legal Sex Male 4:47 AM HRIS DEVELOPER Gender Identity Not on file Sexual Orientation Not on file documented as of this encounter Plan of Treatment Not on file documented as of this encounter Visit Diagnoses Diagnosis Abdominal pain, unspecified site- Primary Unspecified essential hypertension documented in this encounter Care Teams Soil Sort Worker Relationship Specialty Start Date End Date Primitivo Crowder MD [address] [phone] PCP - General Family Practice 05/20/14 documented as of this encounter
--- OUTSIDE RECORDS SUMMARY | 2025-04-26 04:25 | XMS_ITS | Encounter Summary ---
Author Organization [facility] Address [address] [facility] Attn: [place] [address] Care Team Providers Care Line Assigner Name Role Phone Primitivo Crowder MD Primary Care Provider [phone] Encounter Details Date Type Department Care Team (Late st Contact Info) Description 12/23/2000 Outpatient Historical Primitivo Crowder MD [address] [place] [address] Social History Tobacco Use Types Packs/Day Years Used Date Smoking Tobacco: Never Assessed Sex and Gender Information Value Date Recorded Sex Assigned at Not on file Legal Sex Male 4:47 AM CHIEF CONTRACT OFFICER Gender Identity Not on file Sexual Orientation Not on file documented as of this encounter Plan of Treatment Not on file documented as of this encounter Visit Diagnoses Not on filedocumented in this encounter Care Teams Line Assigner Relationship Specialty Start Date End Date Primitivo Crowder MD [address] [place] [address] PCP - General Family Practice 05/20/14 documented as of this encounter
--- OUTSIDE RECORDS SUMMARY | 2025-04-26 04:25 | XMS_ITS | Encounter Summary ---
Author Organization [facility] Address [address] [place] [address] Care Team Providers Care Server Developer Name Role Phone Primitivo Crowder MD Primary Care Provider [phone] Encounter Details Date Type Department Care Team (Latest Contact Info) Description 01/04/2000 Outpatient Historical [address] [phone] Primitivo Crowder MD [address] [place] [phone] Unspecified essential hypertension (Primary Dx); Pure hyperglyceridemia Social History Tobacco Use Types Packs/Day Years Used Date Smoking Tobacco: Never Assessed Sex and Gender Information Value Date Recorded Sex Assigned at Not on file Legal Sex Male 4: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
--- OUTSIDE RECORDS SUMMARY | 2025-04-26 04:25 | XMS_ITS | Encounter Summary ---
Author Organization [facility] Address [address] [place] [address] Care Team Providers Care Dielectric Tester Name Role Phone Primitivo Crowder MD Primary Care Provider Encounter Details Date Type Department Care Team (Latest Contact Info) Description 01/11/2000 Outpatient Historical [address] [phone] Primitivo Crowder MD [address] [place] [phone] Unspecified disorder of lipoid metabolism (Primary Dx) Social History Tobacco Use Types Packs/Day Years Used Date Smoking Tobacco: Never Assessed Sex and Gender Information Value Date Recorded Sex Assigned at Not on file Legal Sex Male 4:47 AM TAX CONSULTANT Gender Identity Not on file Sexual Orientation Not on file documented as of this encounter Plan of Treatment Not on file documented as of this encounter Visit Diagnoses Diagnosis Unspecified disorder of lipoid metabolism- Primary documented in this encounter Care Teams Dielectric Tester Relationship Specialty Start Date End Date Primitivo Crowder MD [address] [phone] PCP - General Family Practice 05/20/14 documented as of this encounter
--- OUTSIDE RECORDS SUMMARY | 2025-04-26 04:25 | XMS_ITS | Encounter Summary ---
Author Organization [facility] Address [address] [place] [address] Care Team Providers Care Foam Tank Laminator Name Role Phone Primitivo Crowder MD Primary Care Provider [phone] Encounter Details Date Type Department Care Team (Late st Contact Info) Description 09/21/2007 Outpatient Historical [facility] [address] [phone] Primitivo Crowder MD [address] [place] [phone] Social History Tobacco Use Types Packs/Day Years Used Date Smoking Tobacco: Never Assessed Sex and Gender Information Value Date Recorded Sex Assigned at Not on file Legal Sex Male 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 Pulse: 88. BP: 130/86. SUBJECTIVE: 46-year-old male comes to followup 24-hour hospital stay at [facility] from 09/15 through . He presented for severe left chest and shoulder pain. Extensive workup including stress echocardiogram was unremarkable for cardiac origin. Note: the patient did just have recent two vessel CABG. The patient states that he has felt somewhat better since the emergency department visit. He has not had any recurrent episodes of that severe left chest and shoulder girdle pain. States he still feels he is not tolerating the metoprolol even at one-half tablet daily. States that it ???does funny things?? to him. Cannot describe this more precisely. No other specific complaints. REVIEW OF SYSTEMS: As above. CURRENT MEDICATIONS: 1. Lisinopril 5 mg daily. 2. Lipitor 10 mg daily. 3. Aspirin 81 mg daily. 4. May still be taking metoprolol 50 mg one-half tablet daily. OBJECTIVE: GENERAL: Reveals overweight, but otherwise well developed, well nourished adult male in no distressat present time. HEENT: Grossly unremarkable. LUNGS: Clear, respirations nonlabored. HEART: Regular rate and rhythm without appreciable murmur. EXTREMITIES: Exam of left extremity does show the vein graft sites healing well other than 2 areas where there are apparent choline (nonabsorbable) sutures protruding from the wound. Wound swabbed with alcohol. Each of these two suture protrusions are sharply excised. There is only trace dependent edema. ASSESSMENT: 1. Left chest pain - noncardiac based on recent workup. 2. Hypertension. 3. Coronary artery disease status post coronary artery bypass grafting. 4. Other problems as previously noted - stable. PLAN: Will allow him to discontinue metoprolol. He is agreeable to try atenolol 50 mg one-half tablet daily. He is to contact me if he believes side effects are present. Continue lisinopril and Lipitor and aspirin. Schedule for lab tomorrow. Plan followup in one month or sooner p.r.n. He is agreeable. Primitivo Crowder M.D. [facility] Electronically Signed by Primitivo Crowder M.D. 10/22/2007 09:02 , 6:39 P A, 580 Document #: [id number] cc: documented in this encounter Plan of Treatment Not on file documented as of this encounter Procedures Procedure Name Priority Date/Time Associated Diagnosis Comments HEPATIC FUNCTION PANEL Routine 09/22/2007 9:15 AM ASSISTANT ATHLETIC TRAINER LIPID PANEL Routine 09/22/2007 9:15 AM ASSISTANT ATHLETIC TRAINER BASIC METABOLIC PANEL Routine 09/22/2007 9:15 AM ASSISTANT ATHLETIC TRAINER documented in this encounter Results * (ABNORMAL) LIPID PANEL (09/22/2007 9:15 AM ASSISTANT ATHLETIC TRAINER) CHOLESTEROL 119 100 - 200 MG/DL [facility] TRIGLYCERIDE 218(H) 0 - 179 MG/DL [facility] HDL 22(L) 40 - 60 MG/DL [facility] LDL CALCULATED 53(L) 58 - 100 MG/DL [facility] LDL CALCULATED CALCULATED LDL REFERENCE: < 100 Optimal 100 - 129 Near Optimal 130 - 159 Borderline High > 160 High Risk [facility] CHOL/HDL RATIO 5.41(H) 3.43 - 4.97 RATIO [facility] 09/22/2007 9:15 AM ASSISTANT ATHLETIC TRAINER 09/22/2007 9:16 AM ASSISTANT ATHLETIC TRAINER Primitivo Crowder MD CHEMISTRY ORDERABLES Final Resu lt [facility] IA# [id number] [address] [place] [id number] * (ABNORMAL) HEPATIC FUNCTION PANEL (09/22/2007 9:15 AM ASSISTANT ATHLETIC TRAINER) TOTAL PROTEIN 7.1 5.9 - 8.2 G/DL [facility] ALBUMIN 4.6 3.4 - 4.8 G/DL [facility] AST 22 12 - 43 IU/L [facility] ALT 41 4 - 51 IU/L [facility] ALKALINE PHOSPHATASE 73 40 - 129 IU/L [facility] BILIRUBIN TOTAL 1.2(H) 0.2 - 1.0 MG/DL [facility] BILIRUBIN DIRECT 0.3 0.0 - 0.3 MG/DL [facility] 09/22/2007 9:15 AM ASSISTANT ATHLETIC TRAINER 09/22/2007 9:16 AM ASSISTANT ATHLETIC TRAINER Primitivo Crowder MD CHEMISTRY ORDERABLES Final Resu lt [facility] CLIA# [id number] [address] [place] [address] * (ABNORMAL) BASIC METABOLIC PANEL (09/22/2007 9:15 AM ASSISTANT ATHLETIC TRAINER) GLUCOSE 104(H) 70 - 100 MG/DL [facility] GLUCOSE Reference interval only valid for fasting specimens [facility] BUN 18 6 - 20 MG/DL [facility] CREATININE 1.0 0.5 - 1.2 MG/DL [facility] SODIUM 141 134 - 145 MEQ/L [facility] POTASSIUM 4.6 3.5 - 5.1 MEQ/L [facility] CHLORIDE 102 96 - 108 MEQ/L [facility] CO2 29 22 - 32 MMOL/L [facility] CALCIUM 10.4 8.5 - 10.6 MG/DL [facility] ANION GAP 15 9 - 20 MEQ/L [facility] OSMOLALITY, CALCULATED 293 275 - 295 MOSM/KG [facility] GFR >60 >60 mL/min/1. 73m [facility] GFR, >60 >60 mL/min/1. 73m [facility] 09/22/2007 9:15 AM ASSISTANT ATHLETIC TRAINER 09/22/2007 9:16 AM ASSISTANT ATHLETIC TRAINER us Primitivo Crowder MD CHEMISTRY ORDERABLES Final Resu lt [facility]# [id number] [address] [place] [address] documented in this encounter Visit Diagnoses Not on filedocumented in this encounter Care Teams Foam Tank Laminator Relationship Specialty Start Date End Date Primitivo Crowder MD [address] [place] [address] PCP - General Family Practice 05/20/14 documented as of this encounter
--- OUTSIDE RECORDS SUMMARY | 2025-04-26 04:25 | XMS_ITS | Encounter Summary ---
Author Organization [facility] Address [address] [place] [address] Care Team Providers Care Tin Pot Operator Name Role Phone Primitivo Crowder MD Primary Care Provider [phone] Encounter Details Date Type Department Care Team (Late st Contact Info) Description 08/30/2007 Emergency [facility] Emergency Department [address] [place] [phone] Ed, Physician NO ADDRESS ON FILE Joe Colvin MD NO ADDRESS ON FILE Social History Tobacco Use Types Packs/Day Years Used Date Smoking Tobacco: Never Assessed Sex and Gender Information Value Date Recorded Sex Assigned at Not on file 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 Gender Identity Not on file Sexual Orientation Not on file documented as of this encounter Plan of Treatment Not on file documented as of this encounter Procedures Procedure Name Priority Date/Time Associated Diagnosis Comments XR CHEST PA AND LATERAL 2 VW Stat 08/30/2007 2:18 PM BALLET COMPANY MEMBER CARDIAC ENZYMES Routine 08/30/2007 2:16 PM BALLET COMPANY MEMBER CBC WITH DIFFERENTIAL Routine 08/30/2007 2:16 PM BALLET COMPANY MEMBER COMPREHENSIVE METABOLIC PANEL Routine 08/30/2007 2:16 PM BALLET COMPANY MEMBER documented in this encounter Results * XR CHEST PA AND LATERAL (08/30/2007 2:18 PM BALLET COMPANY MEMBER) Anatomical Region Laterality Modality Chest Other 08/30/2007 2:18 PM BALLET COMPANY MEMBER Narrative 08/30/2007 2:18 PM BALLET [employer] MEMBER Exam: Chest - PA and Lateral Date/Time of Exam: Aug 30, 2007 2:18:10 PM History: Difficulty breathing. Findings: Comparison made with prior exam dated 08/28/2007. Compared with the prior exam, evidence of prior median sternotomy again noted. Scar or atelectasis at the left lung base with mild CP angle blunting again seen. Minimal right CP angle blunting is noted without definite effusion. Parafissural atelectasis versus fissural fluid noted on the lateral view. Cardiomediastinal contours are stable. Impression: No definite acute disease. Left basilar scar versus atelectasis with minimal pleural reaction. Post-sternotomy status. - Procedure Note Ronn Gloria - 08/31/2007 Exam: Chest - PA and Lateral Date/Time of Exam: Aug 30, 2007 2:18:10 PM History: Difficulty breathing. Findings: Comparison made with prior exam dated 08/28/2007. Compared withthe prior exam, evidence of prior median sternotomy again noted. Scar or atelectasis at the left lungbase with mild CP angle blunting again seen. Minimal right CP angle blunting is noted withoutdefinite effusion. Parafissural atelectasis versus fissural fluid noted on the lateral view.Cardiomediastinal contours are stable. Impression: No definite acute disease. Left basilar scar versusatelectasis with minimal pleural reaction. Post-sternotomy status. - Joe Colvin MD DIAGNOSTIC IMAGING ORDERAB LES Final Result * CARDIAC ENZYMES (08/30/2007 2:16 PM [employer] MEMBER) TROPONIN I <0.1 0.0 - 1.3 ng/mL INTERFACE SYSTEM Comment: As of 06 the Troponin Reference Range has changed from 0.0-1.5 ng/ml to 0.0- 1.3 ng/ml due to a change in testing methodology. CKMB 0.6 0.0 - 5.0 ng/mL INTERFACE SYSTEM 08/30/2007 2:16 PM [employer] MEMBER Joe Colvin MD CHEMISTRY ORDERABLES Edite d INTERFACE SYSTEM Refer to clinic/hospital department * (ABNORMAL) COMPREHENSIVE METABOLIC PANEL (08/30/2007 2:16 PM [employer]LET [employer] MEMBER) GLUCOSE 105 70 - 110 mg/dL INTERFACE SYSTEM BUN 23(H) 9 - 20 mg/dL INTERFACE SYSTEM CREATININE 1.3 0.7 - 1.5 mg/dL INTERFACE SYSTEM SODIUM 139 136 - 145 mEq/L INTERFACE SYSTEM POTASSIUM 4.5 3.5 - 5.0 mEq/L INTERFACE SYSTEM CHLORIDE 99 95 - 110 mEq/L INTERFACE SYSTEM CO2 33(H) 22 - 32 mmol/l INTERFACE SYSTEM CALCIUM 10.3 8.4 - 10.5 mg/dL INTERFACE SYSTEM TOTAL PROTEIN 7.2 6.3 - 8.2 g/dL INTERFACE SYSTEM ALBUMIN 4.5 3.5 - 5.0 g/dL INTERFACE SYSTEM ALKALINE PHOSPHATASE 118(H) 25 - 100 U/L INTERFACE SYSTEM AST 23 8 - 33 U/L INTERFACE SYSTEM ALT 51(H) 4 - 36 IU/L INTERFACE SYSTEM BILIRUBIN TOTAL 0.9 0.3 - 1.2 mg/dL INTERFACE SYSTEM GLOBULIN (CALC) 2.7 2.4 - 3.9 g/dL INTERFACE SYSTEM ALBUMIN/GLOBULIN RATIO 1.7 1.0 - 2.3 INTERFACE SYSTEM ANION GAP 12 9 - 20 mEq/L INTERFACE SYSTEM OSMOLALITY, CALCULATED 291 275 - 295 mOsm/Kg INTERFACE SYSTEM 08/30/2007 2:16 PM [employer]LET [employer] MEMBER us Joe Colvin MD CHEMISTRY ORDERABLES Edite d INTERFACE SYSTEM Refer to clinic/hospital department * (ABNORMAL) CBC WITH DIFFERENTIAL (08/30/2007 2:16 PM [employer]LET [employer] MEMBER) WBC 11.4(H) 4.5 - 11.0 K/ul INTERFACE SYSTEM RBC 4.48(L) 4.60 - 6.20 Mil/ul INTERFACE SYSTEM HEMOGLOBIN 12.7(L) 14.0 - 18.0 g/dL INTERFACE SYSTEM HEMATOCRIT 38.4(L) 41.0 - 53.0 % INTERFACE SYSTEM MCV 85.7 84.0 - 103.0 Fl INTERFACE SYSTEM MCH 28.3 27.0 - 34.0 pg INTERFACE SYSTEM MCHC 33.1 30.0 - 35.0 g/dL INTERFACE SYSTEM RDW 12.2 11.0 - 14.5 % INTERFACE SYSTEM PLATELETS 490(H) 140 - 440 K/ul INTERFACE SYSTEM MPV 10.4 8.9 - 12.8 Fl INTERFACE SYSTEM NEUTROPHILS 75.3(H) 42.2 - 75.2 % INTERFACE SYSTEM LYMPHOCYTES 15.4(L) 24.0 - 44.0 % INTERFACE SYSTEM MONOCYTES 6.5 2.0 - 10.0 % INTERFACE SYSTEM EOSINOPHILS 2.6 0.0 - 7.0 % INTERFACE SYSTEM BASOPHILS 0.2 0.0 - 1.0 % INTERFACE SYSTEM NEUTROPHIL ABSOLUTE 8.6(H) 2.0 - 8.0 K/ul INTERFACE SYSTEM LYMPHOCYTE ABSOLUTE 1.8 1.2 - 4.0 K/ul INTERFACE SYSTEM MONOCYTE ABSOLUTE 0.7(H) 0.1 - 0.6 K/ul INTERFACE SYSTEM EOSINOPHIL ABSOLUTE 0.3 0.0 - 0.7 K/ul INTERFACE SYSTEM BASOPHILS ABSOLUTE 0.0 0.0 - 0.2 K/ul INTERFACE SYSTEM 08/30/2007 2:16 PM [employer] MEMBER us Joe Colvin MD HEMATOLOGY ORDERABLES Edit ed INTERFACE SYSTEM Refer to clinic/hospital department documented in this encounter Visit Diagnoses Not on filedocumented in this encounter Care Teams Tin Pot Operator Relationship Specialty Start Date End Date Primitivo Crowder MD [address] [place] [address] PCP - General Family Practice 05/20/14 documented as of this encounter
--- OUTSIDE RECORDS SUMMARY | 2025-04-26 04:25 | XMS_ITS | Encounter Summary ---
Author Organization [facility] Address [address] [place] [address] Care Team Providers Care Assistant Field Hockey Coach Name Role Phone Primitivo Crowder MD Primary Care Provider Encounter Details Date Type Department Care Team (Latest Contact Info) Description 12/23/2000 Outpatient Historical [address] [phone] Primitivo Crowder MD [address] [place] [phone] Other and unspecified hyperlipidemia (Primary Dx); Unspecified essential hypertension Social History Tobacco Use Types Packs/Day Years Used Date Smoking Tobacco: Never Assessed Sex and Gender Information Value Date Recorded Sex Assigned at Not on file Legal Sex Male 4:47 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
--- OUTSIDE RECORDS SUMMARY | 2025-04-26 04:25 | XMS_ITS | Encounter Summary ---
Author Organization [facility] Address [address] [place] [address] Care Team Providers Care Commander Internal Affairs Name Role Phone Primitivo Crowder MD Primary Care Provider [phone] Encounter Details Date Type Department Care Team (Latest Contact Info) Description 07/14/2000 Outpatient Historical [address] [phone] Primitivo Crowder MD [address] [place] [phone] Acute upper respiratory infections of unspecified site (Primary Dx); Irritable bowel syndrome; Unspecified essential hypertension; Pure hyperglyceridemia Social History Tobacco Use Types Packs/Day Years Used Date Smoking Tobacco: Never Assessed Sex and Gender Information Value Date Recorded Sex Assigned at Not on file Legal 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
--- OUTSIDE RECORDS SUMMARY | 2025-04-26 04:25 | XMS_ITS | Encounter Summary ---
Author Organization [facility] Address [address] [facility] Attn: [place] [address] Care Team Providers Care Assistant Technician Name Role Phone Primitivo Crowder MD Primary Care Provider [phone] Encounter Details Date Type Department Care Team (Late st Contact Info) Description 06/17/2001 Outpatient Historical Primitivo Crowder MD [address] [place] [address] Social History Tobacco Use Types Packs/Day Years Used Date Smoking Tobacco: Never Assessed Sex and Gender Information Value Date Recorded Sex Assigned at Not on file Legal Sex Male 4:47 AM MEMORY CARE PROGRAM RESIDENT Gender Identity Not on file Sexual Orientation Not on file documented as of this encounter Plan of Treatment Not on file documented as of this encounter Visit Diagnoses Not on filedocumented in this encounter Care Teams Assistant Technician Relationship Specialty Start Date End Date Primitivo Crowder MD [address] [place] [address] PCP - General Family Practice 05/20/14 documented as of this encounter
--- OUTSIDE RECORDS SUMMARY | 2025-04-26 04:25 | XMS_ITS | Encounter Summary ---
Author Organization [facility] Address [address] [facility] Attn: [place] [address] Care Team Providers Care Stone Engraver Name Role Phone Primitivo Crowder MD Primary Care Provider [phone] Encounter Details Date Type Department Care Team (Late st Contact Info) Description 10/17/1999 Outpatient Historical Primitivo Crowder MD [address] [place] [address] Social History Tobacco Use Types Packs/Day Years Used Date Smoking Tobacco: Never Assessed Sex and Gender Information Value Date Recorded Sex Assigned at Not on file Legal Sex Male 4:47 AM COMPLEX CARE NURSE PRACTITIONER Gender Identity Not on file Sexual Orientation Not on file documented as of this encounter Plan of Treatment Not on file documented as of this encounter Visit Diagnoses Not on filedocumented in this encounter Care Teams Stone Engraver Relationship Specialty Start Date End Date Primitivo Crowder MD [address] [place] [address] PCP - General Family Practice 05/20/14 documented as of this encounter
--- OUTSIDE RECORDS SUMMARY | 2025-04-26 04:25 | XMS_ITS | Encounter Summary ---
Author Organization [facility] Address [address] [place] [address] Care Team Providers Care Wax Ball Molder Name Role Phone Primitivo Crowder MD Primary Care Provider [phone] Encounter Details Date Type Department Care Team (Latest Contact Info) Description 07/30/2000 Outpatient Historical [address] [phone] Primitivo Crowder MD [address] [place] [phone] Abdominal pain, unspecified site (Primary Dx); Other and unspecified hyperlipidemia; Unspecified essential hypertension; Dysthymic disorder Social History Tobacco Use Types Packs/Day Years Used Date Smoking Tobacco: Never Assessed Sex and Gender Information Value Date Recorded Sex Assigned at Not on file Legal Sex Male 4:47 AM BRIM BUSTER Gender Identity Not on file Sexual Orientation Not on file documented as of this encounter Plan of Treatment Not on file documented as of this encounter Visit Diagnoses Diagnosis Abdominal pain, unspecified site- Primary Other and unspecified hyperlipidemia Unspecified essential hypertension Dysthymic disorder documented in this encounter Care Teams Wax Ball Molder Relationship Specialty Start Date End Date Primitivo Crowder MD [address] [phone] PCP - General Family Practice 05/20/14 documented as of this encounter
--- OUTSIDE RECORDS SUMMARY | 2025-04-26 04:25 | XMS_ITS | Encounter Summary ---
Author Organization [facility] Address [address] [place] [address] Care Team Providers Care Helicopter Pilot Instructor Name Role Phone Primitivo Crowder MD Primary Care Provider [phone] Encounter Details Date Type Department Care Team (Latest Contact Info) Description 04/13/2001 Outpatient Historical [facility] [address] [phone] Primitivo Crowder MD [address] [place] [phone] Unspecified essential hypertension (Primary Dx); Chest pain, unspecified; Other and unspecified hyperlipidemia Social History Tobacco Use Types Packs/Day Years Used Date Smoking Tobacco: Never Assessed Sex and Gender Information Value Date Recorded Sex Assigned at Not on file Legal Sex Male 4:47 AM CAREER SERVICES COORDINATOR Gender Identity Not on file Sexual Orientation Not on file documented as of this encounter Plan of Treatment Not on file documented as of this encounter Visit Diagnoses Diagnosis Unspecified essential hypertension- Primary Chest pain, unspecified Other and unspecified hyperlipidemia documented in this encounter Care Teams Helicopter Pilot Instructor Relationship Specialty Start Date End Date Primitivo Crowder MD [address] [phone] PCP - General Family Practice 05/20/14 documented as of this encounter
--- OUTSIDE RECORDS SUMMARY | 2025-04-26 04:25 | XMS_ITS | Encounter Summary ---
Author Organization [facility] Address [address] [place] [address] Care Team Providers Care Route Salesman Name Role Phone Primitivo Crowder MD Primary Care Provider [phone] Encounter Details Date Type Department Care Team (Latest Contact Info) Description 04/14/2000 Outpatient Historical [facility] [address] [phone] Primitivo Crowder MD [address] [place] [phone] Other and unspecified hyperlipidemia (Primary Dx); Unspecified essential hypertension; Abdominal pain, unspecified site Social History Tobacco Use Types Packs/Day Years Used Date Smoking Tobacco: Never Assessed Sex and Gender Information Value Date Recorded Sex Assigned at Not on file Legal Sex Male 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
--- OUTSIDE RECORDS SUMMARY | 2025-04-26 04:25 | XMS_ITS | Encounter Summary ---
Author Organization [facility] Address [address] [place] [address] Care Team Providers Care Side Seam Envelope Machine Operator Name Role Phone Primitivo Crowder MD Primary Care Provider [phone] Encounter Details Date Type Department Care Team (Latest Contact Info) Description 07/13/1999 Outpatient Historical [facility] [address] [phone] Primitivo Crowder MD [address] [place] [phone] Other and unspecified hyperlipidemia (Primary Dx) Social History Tobacco Use Types Packs/Day Years Used Date Smoking Tobacco: Never Assessed Sex and Gender Information Value Date Recorded Sex Assigned at Not on file Legal Sex Male 4:47 AM TAX 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
--- OUTSIDE RECORDS SUMMARY | 2025-04-26 04:25 | XMS_ITS | Encounter Summary ---
Author Organization [facility] Address [address] [place] [address] Care Team Providers Care Informatics Coordinator Name Role Phone Primitivo Crowder MD Primary Care Provider [phone] Encounter Details Date Type Department Care Team (Late st Contact Info) Description 10/01/2007 Outpatient Historical [facility] [address] 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
--- OUTSIDE RECORDS SUMMARY | 2025-04-26 04:25 | XMS_ITS | Encounter Summary ---
Author Organization [facility] Address [address] [place] [address] Care Team Providers Care Caterers Helper Name Role Phone Primitivo Crowder MD Primary Care Provider [phone] Encounter Details Date Type Department Care Team (Latest Contact Info) Description 12/30/2000 Outpatient Historical [address] [phone] Primitivo Crowder MD [address] [place] [address] Other and unspecified hyperlipidemia (Primary Dx); Unspecified essential hypertension; Irritable bowel syndrome; Dysthymic disorder Social History Tobacco Use Types Packs/Day Years Used Date Smoking Tobacco: Never Assessed Sex and Gender Information Value Date Recorded Sex Assigned at Not on file Legal Sex Male 4:47 AM APPLICATION HELPER Gender Identity Not on file Sexual Orientation Not on file documented as of this encounter Plan of Treatment Not on file documented as of this encounter Visit Diagnoses Diagnosis Other and unspecified hyperlipidemia- Primary Unspecified essential hypertension Irritable bowel syndrome Dysthymic disorder documented in this encounter Care Teams Caterers Helper Relationship Specialty Start Date End Date Primitivo Crowder MD [address] [phone] PCP - General Family Practice 05/20/14 documented as of this encounter
--- OUTSIDE RECORDS SUMMARY | 2025-04-26 04:25 | XMS_ITS | Encounter Summary ---
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
--- OUTSIDE RECORDS SUMMARY | 2025-04-26 04:25 | XMS_ITS | Encounter Summary ---
Author Organization [facility] Address [address] [place] [address] Care Team Providers Care Quality Review Specialist Name Role Phone Primitivo Crowder MD Primary Care Provider [phone] Encounter Details Date Type Department Care Team (Latest Contact Info) Description 04/20/2001 Outpatient Historical [facility] [address] [phone] Primitivo Crowder MD [address] [place] [phone] Acute bronchitis (Primary Dx); Abdominal pain, unspecified site; Other and unspecified hyperlipidemia Social History Tobacco Use Types Packs/Day Years Used Date Smoking Tobacco: Never Assessed Sex and Gender Information Value Date Recorded Sex Assigned at Not on file 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
--- OUTSIDE RECORDS SUMMARY | 2025-04-26 04:25 | XMS_ITS | Encounter Summary ---
Author Organization [facility] Address [address] [place] [address] Care Team Providers Care Residential Substance Abuse Counselor Name Role Phone Primitivo Crowder MD Primary Care Provider [phone] Encounter Details Date Type Department Care Team (Latest Contact Info) Description 09/24/1999 Outpatient Historical [facility] [address] [phone] Primitivo Crowder MD [address] [place] [phone] Unspecified endocrine disorder (Primary Dx); Swelling, mass, or lump in head and neck; Myalgia and myositis, unspecified Social History Tobacco Use Types Packs/Day Years Used Date Smoking Tobacco: Never Assessed Sex and Gender Information Value Date Recorded Sex Assigned at Not on file 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
--- OUTSIDE RECORDS SUMMARY | 2025-04-26 04:25 | XMS_ITS | Encounter Summary ---
Author Organization [facility] Address [address] [place] [address] Care Team Providers Care Production Proofreader Name Role Phone Primitivo Crowder MD Primary Care Provider [phone] Encounter Details Date Type Department Care Team (Latest Contact Info) Description 06/30/2000 Outpatient Historical [address] [phone] Primitivo Crowder MD [address] [place] [phone] Other and unspecified hyperlipidemia (Primary Dx); Nonspecific abnormal results of liver function study Social History Tobacco Use Types Packs/Day Years Used Date Smoking Tobacco: Never Assessed Sex and Gender Information Value Date Recorded Sex Assigned at Not on file 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
--- OUTSIDE RECORDS SUMMARY | 2025-04-26 04:25 | XMS_ITS | Encounter Summary ---
Author Organization [facility] Address [address] [place] [address] Care Team Providers Care Fire Sprinkler Designer Name Role Phone Primitivo Crowder MD Primary Care Provider [phone] Encounter Details Date Type Department Care Team (Late st Contact Info) Description 08/30/2007 Outpatient Historical [facility] [address] 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
--- OUTSIDE RECORDS SUMMARY | 2025-04-26 04:25 | XMS_ITS | Encounter Summary ---
Author Organization [facility] Address [address] [place] [address] Care Team Providers Care Window Installer Name Role Phone Primitivo Crowder MD Primary Care Provider [phone] Encounter Details Date Type Department Care Team (Late st Contact Info) Description 08/31/2007 Outpatient Historical [facility] [address] 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
--- OUTSIDE RECORDS SUMMARY | 2025-04-26 04:25 | XMS_ITS | Encounter Summary ---
Author Organization [facility] Address [address] [place] [address] Care Team Providers Care Stewardess Supervisor Name Role Phone Primitivo Crowder MD Primary Care Provider [phone] Encounter Details Date Type Department Care Team (Latest Contact Info) Description 10/17/1999 Outpatient Historical [address] [phone] Primitivo Crowder MD [address] [place] [phone] Nonspecific abnormal results of liver function study (Primary Dx) Social History Tobacco Use Types Packs/Day Years Used Date Smoking Tobacco: Never Assessed Sex and Gender Information Value Date Recorded Sex Assigned at Not on file 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
--- OUTSIDE RECORDS SUMMARY | 2025-04-26 04:25 | XMS_ITS | Encounter Summary ---
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 Pulse: 100. BP: 130/88. Temperature 97.3. Respirations 26. SUBJECTIVE: This 46-year-old male comes in for followup of 2-vessel CAB[address] Dr[address] Solis on 08/14/2007. The patient did well and was discharged on 08/19/2007. He states he has felt better since surgery than he has for a long time. He has had no more chest pain other than the postoperative pain. He also states that his upper quadrant abdominal pain that he has had chronically seems to be improved as well. He did have a [facility] on 08/31 for a ???hard heart beat.?? Evaluation was apparently unremarkable. The patient was given hydrochlorothiazide and potassium at that visitbut states he has not taken those. Also, apparently, he is not currently taking metoprolol or omeprazole which also had been recommended. He believes he is taking his lisinopril. He did have Holter monitor applied on 09/01/2006. Those results available on PowerChart are unremarkable. With respect to metoprolol, he states that if he took it 50 mg b.i.d. as prescribed that it ???messed me up.?? Rick describe this more specifically. He has no other concerns or complaints as noted. REVIEW OF SYSTEMS: RESPIRATORY: Unremarkable. CARDIOVASCULAR: Unremarkable. GASTROINTESTINAL: Unremarkable. GENITOURINARY: Unremarkable. MUSCULOSKELETAL: Unremarkable. NEUROLOGICAL: Unremarkable. MEDICATIONS: Lisinopril 5 mg daily, Lipitor 10 mg daily, aspirin 81 mg daily. OBJECTIVE: GENERAL: Examination reveals somewhat overweight but generally well-developed, well-nourished adultmale alert, conversant, in no distress. HEENT: Grossly unremarkable. LUNGS: Clear, respirations unlabored. HEART: Regular rate and rhythm without appreciable murmur. CHEST: Shows excellent healing of the median sternotomy incision. No evidence of infection or dehiscence. ABDOMEN: Not examined. EXTREMITIES: Show no gross musculoskeletal abnormalities. SKIN: Examination of vein graft donor sites are healing nicely. There is one small absorbable suture protruding from one wound about 1 cm in length. This is cut flush with the skin. ASSESSMENT: 1. Recent 2-vessel coronary artery bypass grafting - doing well. 2. Coronary artery disease. 3. Hypertension. 4. Hyperlipidemia. 5. History of alcoholism. 6. Acid peptic disease. 7. Medical noncompliance. PLAN: Discussed all the above with the patient at some length. I had asked him to restart metoprolol at a lower dose. He seems to be agreeable. We will try metoprolol 50 mg ?? tab b.i.d. He is to contact me if he feels he is not tolerating this. He is to remain on aspirin, Lipitor and lisinopril. He may remain off of the hydrochlorothiazide and potassium supplement for now. Omeprazole on a p.r.n. basis. Plan followup here in 1 month or sooner p.r.n. He is agreeable. Would like fasting lab before that visit. Primitivo Crowder M.D. [facility] Electronically Signed by Primitivo Crowder M.D. 09/28/2007 11:40 , A, 696 Document #: [id number] cc: ILE WORKER documented in this encounter Plan of Treatment Not on file documented as of this encounter Visit Diagnoses Not on filedocumented in this encounter Care Teams Community Coordinator Relationship Specialty Start Date End Date Primitivo Crowder MD [address] [place] [address] PCP - General Family Practice 05/20/14 documented as of this encounter
--- OUTSIDE RECORDS SUMMARY | 2025-04-26 04:25 | XMS_ITS | Encounter Summary ---
Author Organization [facility] Address [address] [place] [address] Care Team Providers Care Billet Shearer Name Role Phone Primitivo Crowder MD Primary Care Provider [phone] Encounter Details Date Type Department Care Team (Late st Contact Info) Description 10/01/2007 Emergency [facility] Emergency Department [address] 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 Gender Identity Not on file Sexual Orientation Not on file documented as of this encounter Plan of Treatment Not on file documented as of this encounter Procedures Procedure Name Priority Date/Time Associated Diagnosis Comments XR CHEST PA AND LATERAL 2 VW Routine 10/01/2007 10:45 PM STABILIZING MACHINE OPERATOR INFLUENZA VIRUS A AND B, ANTIGEN DETECTION Stat 10/01/2007 9:38 PM STABILIZING MACHINE OPERATOR documented in this encounter Results * XR CHEST PA AND LATERAL (10/01/2007 10:45 PM STABILIZING MACHINE OPERATOR) Anatomical Region Laterality Modality Chest Other 10/01/2007 10:4 5 PM STABILIZING MACHINE OPERATOR Narrative 10/01/2007 10:45 PM STABILIZING MACHINE OPERATOR Exam: Chest - PA and Lateral Date/Time of Exam: Oct 01, 2007 10:45:53 PM History: Chest pain. Comparison: Prior study date 09/15/2007. Findings: The lung hernadez are clear of confluent infiltrates and effusions. Postsurgical sternotomy sutures and multiple clips are present. Blunting of the left CP angle persists. This was present on previous study. The lateral projection shows fluid in the left major fissure. Small amounts of atelectatic change in the lung bases are present. Comparison to prior study shows blunting of the CP angle and thickening in the left major fissure dating back to 08/30/2007. Impression: Continuing pleural changes. - Procedure Note Marcus Bianchi - 10/02/2007 Exam: Chest - PA and Lateral Date/Time of Exam: Oct 01, 2007 10:45:53 PM History: Chest pain. Comparison: Prior study date 09/15/2007. Findings: The lung hernadez are clear of confluent infiltrates and effusions.Postsurgical sternotomy sutures and multiple clips are present. Blunting of the left CP angle persists. Thiswas present on previous study. The lateral projection shows fluid in the left major fissure. Smallamounts of atelectatic change in the lung bases are present. Comparison to prior study shows blunting of the CP angle and thickening inthe left major fissure dating back to 08/30/2007. Impression: Continuing pleural changes. - Allen Gaspar DO DIAGNOSTIC IMAGING ORDERAB LES Final Result * INFLUENZA VIRUS A AND B ANTIGEN (10/01/2007 9:38 PM STABILIZING MACHINE OPERATOR) INFLUENZA A AG Negative Negative [facility] INFLUENZA B AG Negative Negative [facility] 10/01/2007 9:38 PM STABILIZING MACHINE OPERATOR 10/01/2007 9:47 PM STABILIZING MACHINE OPERATOR Allen Gaspar DO MICROBIOLOGY - GENERAL ORD ERABLES Final Result [facility] [address] [place] [address] documented in this encounter Visit Diagnoses Not on filedocumented in this encounter Care Teams Billet Shearer Relationship Specialty Start Date End Date Primitivo Crowder MD [address] [place] [address] PCP - General Family Practice 05/20/14 documented as of this encounter
--- OUTSIDE RECORDS SUMMARY | 2025-04-26 04:25 | XMS_ITS | Encounter Summary ---
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
--- OUTSIDE RECORDS SUMMARY | 2025-04-26 04:25 | XMS_ITS | Encounter Summary ---
Author Organization [facility] Address [address] [place] [address] Care Team Providers Care Flight Operations Engineer Name Role Phone Primitivo Crowder MD Primary Care Provider [phone] Encounter Details Date Type Department Care Team (Latest Contact Info) Description 11/28/2000 Outpatient Historical [facility] [place] [address] [phone] Erica Garber MD [address] [place] [address] Urinary frequency (Primary Dx) Social History Tobacco Use Types Packs/Day Years Used Date Smoking Tobacco: Never Assessed Sex and Gender Information Value Date Recorded Sex Assigned at Not on file 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
--- OUTSIDE RECORDS SUMMARY | 2025-04-26 04:25 | XMS_ITS | Encounter Summary ---
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
--- OUTSIDE RECORDS SUMMARY | 2025-04-26 04:25 | XMS_ITS | Encounter Summary ---
Author Organization [facility] Address [address] [facility] Attn: [place] [address] Care Team Providers Care Bite Block Maker Name Role Phone Primitivo Crowder MD Primary Care Provider [phone] Encounter Details Date Type Department Care Team (Late st Contact Info) Description 04/14/2000 Outpatient Historical [facility], Physician NO ADDRESS ON FILE Primitivo Crowder MD [address] [place] [address] Social History Tobacco Use Types Packs/Day Years Used Date Smoking Tobacco: Never Assessed Sex and Gender Information Value Date Recorded Sex Assigned at Not on file Legal 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
--- OUTSIDE RECORDS SUMMARY | 2025-04-26 04:25 | XMS_ITS | Encounter Summary ---
Author Organization [facility] Address [address] [facility] Attn: [place] [address] Care Team Providers Care Reel Slitter Name Role Phone Primitivo Crowder MD Primary Care Provider [phone] Encounter Details Date Type Department Care Team (Late st Contact Info) Description 04/13/2001 Outpatient Historical Primitivo Crowder MD [address] [place] [address] Social History Tobacco Use Types Packs/Day Years Used Date Smoking Tobacco: Never Assessed Sex and Gender Information Value Date Recorded Sex Assigned at Not on file Legal 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
--- OUTSIDE RECORDS SUMMARY | 2025-04-26 04:25 | XMS_ITS | Encounter Summary ---
Author Organization [facility] Address [address] [place] [address] Care Team Providers Care Commercial Lending Relationship Manager Name Role Phone Primitivo Crowder MD Primary Care Provider [phone] Encounter Details Date Type Department Care Team (Late st Contact Info) Description 11/13/2007 Outpatient Historical [facility] [place] [address] [place] [phone] Primitivo Crowder MD [address] [place] [address] Social History Tobacco Use Types Packs/Day Years Used Date Smoking Tobacco: Never Assessed Sex and Gender Information Value Date Recorded Sex Assigned at Not on file 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 Clinical History: Abdominal pain. Elevated liver enzymes. Findings: The liver is of coarsened echotexture. No focal hepatic lesions or perihepatic fluid collections are identified. There is no evidence for intra or extrahepatic biliary dilatation. Common bile duct measures 3.7 mm in diameter which is within normal limits. Gallbladder is unremarkable without evidence for stones, sludge, gallbladder wall thickening or pericholecystic fluid collections. A negative sonographic Adams's sign was noted. Right kidney measures 11.9 cm in length while the left kidney measures 11.6 cm in length. There is no evidence for hydronephrosis, solid renal mass, renal calculi or perinephric fluid collections. The spleen is unremarkable in appearance and measures 10.9 x 5.4 x 8.4 cm. The head, body and tail of the pancreas appear within normal limits. No aneurysm of the abdominal aorta is noted. Impressions: 1. Coarsened liver echotexture most consistent with fatty liver infiltration. However, other infiltrating processes may have same appearance and clinical correlation is suggested. - Dictated By: Alex Moore M.D., Ph.D. Electronically Signed By: Alex Moore M.D., Ph.D. Date Signed: 11/18/07 SDM Procedure Note Alex Moore - 11/18/2007 Ultrasound of the Abdomen - Nov 16, 2007 7:55:48 AM Comparisons: 04/07/2007 (CT abdomen and pelvis). Clinical History: Abdominal pain. Elevated liver enzymes. Findings: The liver is of coarsened echotexture. No focal hepatic lesionsor perihepatic fluid collections are identified. There is no evidence for intra orextrahepatic biliary dilatation. Common bile duct measures 3.7 mm in diameter which is within normal limits.Gallbladder is unremarkable without evidence for stones, sludge, gallbladder wall thickening orpericholecystic fluid collections. A negative sonographic Adams's sign was noted. Right kidney measures 11.9 cm in length while the left kidney lhciypzw18.6 cm in length. There is no evidence for hydronephrosis, solid renal mass, renal calculi orperinephric fluid collections. The spleen is unremarkable in appearance and measures 10.9 x 5.4 x 8.4cm. The head, body and tail of the pancreas appear within normal limits. No aneurysm of the abdominal aorta is noted. Impressions: 1. Coarsened liver echotexture most consistent with fatty liverinfiltration. However, other infiltrating processes may have same appearance and clinical correlation is suggested. - Dictated By: Alex Moore M.D., Ph.D. Electronically Signed By: Alex Moore M.D., Ph.D. Date Signed: 11/18/07 SDM Primitivo Crowder MD ORDERABLES Final Result documented in this encounter Visit Diagnoses Not on filedocumented in this encounter Care Teams Commercial Lending Relationship Manager Relationship Specialty Start Date End Date Primitivo rCowder MD [address], [place] [address] PCP - General Family Practice 05/20/14 documented as of this encounter
--- OUTSIDE RECORDS SUMMARY | 2025-04-26 04:25 | XMS_ITS | Encounter Summary ---
Author Organization [facility] Address [address] 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
--- OUTSIDE RECORDS SUMMARY | 2025-04-26 04:25 | XMS_ITS | Encounter Summary ---
Author Organization [facility] Address [address] [place] [address] Care Team Providers Care Nuclear Unit Operator Name Role Phone Primitivo Crowder MD Primary Care Provider [phone] Encounter Details Date Type Department Care Team (Latest Contact Info) Description 01/24/2000 Outpatient Historical [facility] [address] [phone] Primitivo Crowder MD [address] [place] [address] Abdominal pain, unspecified site (Primary Dx); Nonspecific abnormal results of liver function study; Pure hypercholesterolem Social History Tobacco Use Types Packs/Day Years Used Date Smoking Tobacco: Never Assessed Sex and Gender Information Value Date Recorded Sex Assigned at Not on file 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
--- OUTSIDE RECORDS SUMMARY | 2025-04-26 04:25 | XMS_ITS | Encounter Summary ---
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
--- OUTSIDE RECORDS SUMMARY | 2025-04-26 04:25 | XMS_ITS | Encounter Summary ---
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) (Primary Dx) Social History Tobacco Use Types Packs/Day Years Used Date Smoking Tobacco: Never Assessed Sex and Gender Information Value Date Recorded Sex Assigned at Not on file 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
--- OUTSIDE RECORDS SUMMARY | 2025-04-26 04:25 | XMS_ITS | Encounter Summary ---
Author Organization [facility] Address [address] [place] [address] Care Team Providers Care Geochemistry Teacher Name Role Phone Primitivo Crowder MD Primary Care Provider [phone] Encounter Details Date Type Department Care Team (Latest Contact Info) Description 05/08/1999 Outpatient Historical [facility] [address] [phone] Primitivo Crowder MD [address] [place] [phone] Other and unspecified hyperlipidemia (Primary Dx) Social History Tobacco Use Types Packs/Day Years Used Date Smoking Tobacco: Never Assessed Sex and Gender Information Value Date Recorded Sex Assigned at Not on file 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
--- OUTSIDE RECORDS SUMMARY | 2025-04-26 04:25 | XMS_ITS | Encounter Summary ---
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
--- OUTSIDE RECORDS SUMMARY | 2025-04-26 04:26 | XMS_ITS | Clinical Summary ---
Author Organization [facility] [place] Address [address] [facility] [place] [address] Care Team Providers Care Binding Stitcher Name Role Phone Primitivo Crowder MD Primary Care Provider [phone] Allergies No known active allergies Medications aspirin (EDIL) 81 mg Oral Tab Take 81 mg by mouth. Active lisinopril (PRINIVIL) 5 mg Oral tablet Take 1 Tab by mouth daily. 30 Tab 0 2 Active aluminum - magnesium - simethicone (MYLANTA) 200-200-20 mg/5 mL Suspension Take 10 mL by mouth every 6 hours as needed for Dyspepsia or Indigestion. 360 mL 0 4 Active LORazepam (ATIVAN) 0.5 mg tablet Take 1 Tab by mouth every 6 hours as needed for Anxiety. 20 Tab None 4 Active dicyclomine (BENTYL) 10 mg capsule Take 1 Cap by mouth every 6 hours as needed for Pain. 60 Cap 0 4 Active meloxicam (MOBIC) 7.5 mg tablet Take 1 Tab by mouth 2 times daily. For chest rib, and back pain 60 Tab 5 4 Active HYDROcodone-acetam inophen (NORCO) 7.5-325 mg Tablet 5 Active bismuth subsalicylate (PEPTO-BISMOL) 262 mg/15 mL suspension Take 30 mL by mouth every 6 hours as needed for Indigestion. Active Active Problems Problem Noted Date Diagnosed Date Abdominal pain 05/20/2014 Nausea 05/20/2014 Gastritis 05/20/2014 ASHD (arteriosclerotic heart disease) 05/20/2014 CAD (coronary artery disease) 05/20/2014 Psoriasis 05/20/2014 S/P CABG (coronary artery bypass graft) 05/20/20 14 Anxiety 04/29/2014 Elevated bilirubin 04/28/2014 Psoriasis 04/28/2014 Tobacco use 04/28/2014 History of alcohol abuse 04/28/2014 Chest pain 10/08/2011 Hyperglycemia 08/29/2008 Hypertension 06/27/2008 Hyperlipidemia 06/27/2008 NSTEMI (non-ST elevated myocardial infarction) Resolved Problems Problem Noted Date Diagnosed Date Resolved Date Chest pain 05/20/2014 06/16/2014 Abdominal pain 04/29/2014 04/29/2014 Chest pain 04/28/2014 04/29/2014 Family History Medical History Relation Name Comments Heart Disease Brother 1 Other Father Other Mother Heart Disease Sister Lung Cancer Neg Hx Relation Name Status Comments Brother 1 Alive Brother 2 Father Mother Sister Alive Social History Tobacco Use Types Packs/Day Years Used Date Smoking Tobacco: Former Cigarettes 0.5 35 0 05/03/1979 - 05/03/2014 Smokeless Tobacco: Current Chew Tobacco Cessation:Ready to Q uit: No Alcohol Use Standard Drinks/Week Comments Yes 0 (1 standard drink = 0.6 oz pure alcohol) history alcohoism, drink a little Sex and Gender Information Value Date Recorded Sex Assigned at Not on file Legal 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 Male 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 Gender Identity Not on file Sexual Orientation Not on file Occupation Industry Job Start Date Job End Date Not on file Not on file Not on file Not on file Not on file Not on file Not on file Not on file Last Filed Vital Signs Vital Sign Reading Time Taken Comments Blood Pressure 129/84 05/11/2019 11:00 AM CDT Pulse 67 05/11/2019 11:00 AM CDT Temperature 36.3 C (97.3 F) 05/11/2019 3:00 PM CDT Respiratory Rate 17 05/11/2019 11:00 AM CDT Oxygen Saturation 95% 05/11/2019 11:00 AM CDT Inhaled Oxygen Concentration - - Weight 91.2 kg (201 lb 1.6 oz) 05/11/2019 4:57 A M CDT Height 182.9 cm (6') 05/10/2019 11:38 PM CDT Body Mass Index 27.27 05/10/2019 11:38 PM CDT Plan of Treatment Health Maintenance Due Date Last Done Comments DIABETES ANNUAL FOOT EXAM 1976 DIABETES ANNUAL RETINAL EXAM 1976 DIABETES MICROALBUMIN ANNUAL SCREEN 1976 DTAP/TDAP/TD VACCINES (1 - Tdap) 1977 PNEUMOCOCCAL VACCINE 50+ YEA RS (1 of 2 - PCV) 1977 Traditional Medicare (ACO) A nnual Wellness Visit 1977 FIT-DNA Q 3 years 01/01/2004 FIT/FOBT Q 1 year 01/01/2004 Flex Sig/CT Colonography Q 5 years 01/01/2004 ZOSTER VACCINE (1 of 2) 2008 RSV VACCINE (60+ or ) (1 - Risk 60-74 years 1-dose series) 2018 LDL CHOLESTEROL ANNUAL 05/11/2020 9, 05/11/2019, 04/29/2014, Additional history exists COLORECTAL SCREENING 02/14/2025 02/14/2015 Colorectal Cancer Screening 02/14/2025 INFLUENZA VACCINE (#1) 2025 DIABETES HBA1C Q 6 MONTHS 09/17/2025 03/17/2025, 03/2019 Procedures Procedure Name Priority Date/Time Associated Diagnosis Comments LIPID PANEL Routine 05/11/2019 4:01 AM CDT HEMOGLOBIN A1C Routine 05/11/2019 4:01 AM CDT from Last 3 Months or Most Recently Relevant to Health Maintenance Results * (ABNORMAL) HEMOGLOBIN A1C (05/11/2019 4:01 AM CDT) HEMOGLOBIN A1C 12.5(H) <=5.6 % 05/11/2019 2:59 PM CDT [facility] [employer] [facility] EST. AVG GLUCOSE, A1C 312 mg/dL 05/11/2019 2:[address] [facility] Blood Venipuncture / Unknown 05/11/2019 4:01 AM CDT 05/11/2019 4:01 AM CDT Narrative [facility] [employer] [facility] - 05/11/2019 2:59 PM CDT HGB A1C INTERPRETATION NORMAL: <5.7% PRE-DIABETES: 5.7 - 6.4% DIABETES: 6.5% OR GREATER [facility] [place] ANP CHEMISTRY ORDERABLES Maci l Result Performing Organization Address City/[facility]/ZIP Co de Phone Number [facility] CLIA# [id number] [address] [place] [address] * (ABNORMAL) LIPID PANEL (05/11/2019 4:01 AM CDT) [facility] Signature CHOLESTEROL 242(H) <200 mg/dL 05/11/2019 8:[address] [facility] TRIGLYCERIDE 1,272(H) <150 mg/dL 05/11/2019 8:31 AM [facility] HDL 05/11/2019 8:[address] [facility] Comment:Measured HDL is not accurate when the Triglyceride value exceeds 1000. LDL CALCULATED 05/11/2019 8:[address] [facility] Comment:Calculated LDL is no t accurate when the Triglyceride value exceeds 400. NON-HDL CHOLESTEROL 05/11/2019 8:31 AM [facility] Comment:Non HDL Cholesterol cannot be calculated when the HDL value is suppressed. Blood Venipuncture / Unknown 05/11/2019 4:01 AM CDT 05/11/2019 4:[address] [facility] - 05/11/2019 8:31 AM CDT TOTAL CHOLESTEROL mg/dL Desirable <200 Borderline high 200-239 High >=240 TRIGLYCERIDES mg/dL Normal <150 Borderline high 150-199 High 200-499 Very high >=500 HDL CHOLESTEROL mg/dL Low <40 Normal 40-59 Desirable >=60 NON HDL CHOLESTEROL mg/dL Optimal <130 Near Optimal 130-159 Borderline High 160-189 Very High >=190 Calculated LDL mg/dL Optimal <100 Near Optimal 100-129 Borderline High 130-159 High 160-189 Very High >=190 ATPIII Guidelines Reference Ranges for Lipid Panels (NCEP/AMA) [place] ANP CHEMISTRY ORDERABLES Maci l Result [facility] CLIA# [id number] [address] [place] [address] from Last 3 Months or Most Recently Relevant to Health Maintenance Insurance MEDICARE PART A AND B [place] Advance Directives For more information, please contact: [phone] * Full Code (Latest Code Status on File) Date Activated Date Inactivated Comments 05/11/2019 12:25 AM 05/11/2019 6:37 PM * Full Code Date Activated Date Inactivated Comments 02/14/2015 1:43 PM 02/14/2015 4:57 PM * Full Code Date Activated Date Inactivated Comments 04/28/2014 5:42 PM 04/29/2014 9:59 PM * Full Code Date Activated Date Inactivated Comments 10/07/2011 8:01 PM 10/08/2011 7:31 PM Care Teams Binding Stitcher Relationship Specialty Start Date End Date Primitivo Crowder MD [address] [place] [address] PCP - General Family Practice 05/20/14
--- OUTSIDE RECORDS SUMMARY | 2025-04-26 04:26 | XMS_ITS | Encounter Summary ---
Author Organization [facility] Address [address] [place] [address] Care Team Providers Care Business Banking Representative Name Role Phone Primitivo Crowder MD Primary Care Provider [phone] Encounter Details Date Type Department Care Team (Latest Contact Info) Description 03/29/2002 Outpatient Historical [address] [phone] Primitivo Crowder MD [address] [place] [address] HYPERTENSION NOS (Primary Dx); HYPERLIPIDEMIA NEC/NOS; PSORIATIC ARTHROPATHY (CMS/HCC); ABNORMAL LIVER FUNCTION STUDY Social History Tobacco Use Types Packs/Day Years Used Date Smoking Tobacco: Never Assessed Sex and Gender Information Value Date Recorded Sex Assigned at Not on file 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 Gender Identity Not on file Sexual Orientation Not on file documented as of this encounter Plan of Treatment Not on file documented as of this encounter Visit Diagnoses Diagnosis Unspecified essential hypertension- Primary Other and unspecified hyperlipidemia Psoriatic arthropathy (CMS/HCC) Psoriatic arthropathy Nonspecific abnormal results of liver function study documented in this encounter Care Teams Business Banking Representative Relationship Specialty Start Date End Date Primitivo Crowder MD [address] [phone] PCP - General Family Practice 05/20/14 documented as of this encounter
--- OUTSIDE RECORDS SUMMARY | 2025-04-26 04:26 | XMS_ITS | Encounter Summary ---
Author Organization [facility] Address [address] [place] [address] Care Team Providers Care Six Horse Hitch Driver Name Role Phone Primitivo Crowder MD Primary Care Provider [phone] Encounter Details Date Type Department Care Team (Latest Contact Info) Description 09/22/2004 Outpatient Historical [facility] [address] [place] [address] AMBULANCE, [facility] ABDOMINAL PAIN RUQ (Primary Dx) Social History Tobacco Use Types Packs/Day Years Used Date Smoking Tobacco: Never Assessed Sex and Gender Information Value Date Recorded Sex Assigned at Not on file Legal Sex Male 4:47 AM EMT P Gender Identity Not on file Sexual Orientation Not on file documented as of this encounter Plan of Treatment Not on file documented as of this encounter Visit Diagnoses Diagnosis Abdominal pain, right upper quadrant- Primary documented in this encounter Care Teams Six Horse Hitch Driver Relationship Specialty Start Date End Date Primitivo Crowder MD [address] [place] [address] PCP - General Family Practice 05/20/14 documented as of this encounter
--- OUTSIDE RECORDS SUMMARY | 2025-04-26 04:26 | XMS_ITS | Encounter Summary ---
Author Organization [facility] Address [address] [place] [address] Care Team Providers Care Emergency Care Tech Name Role Phone Primitivo Crowder MD Primary Care Provider [phone] Reason for Referral * Outpatient Services (Routine) - Closed Specialty Diagnoses / Procedures Referred By Jeffery santos Referred To Contact Diagnoses Thoracic spondylosis without myelopathy Procedures MRI THORACIC WO CONTRAST Diann Jasso MD [address] [place] [address] Phone: tel: fax: [facility] Pre-Registration [place] CALL TO MAKE APPOINTMENT ONLY [address] [place] [address] Phone: tel: fax: Referral ID Status Reason Start Date Expiration Date V isits Requested Visits Authorized [id number] Closed F MC TO SCHEDULE (SGF) 09/16/2014 10/17/2015 1 1 ICATION SUPPORT CONSULTANT Encounter Details Date Type Department Care Team (Latest Contact Info) Description 09/16/2014 Ancillary Orders [facility] Pre-Registration [place] CALL TO MAKE APPOINTMENT ONLY [address] [place] [address] [place] [id number] [place] [address] Thoracic spondylosis without myelopathy (Primary Dx) Social History Tobacco Use Types Packs/Day Years Used Date Smoking Tobacco: Former Cigarettes 0.5 35 0 05/03/1979 - 05/03/2014 Smokeless Tobacco: Current Chew Alcohol Use Standard Drinks/Week Comments Yes 0 (1 standard drink = 0.6 oz pure alcohol) history alcohoism none since 04/20/2014 Sex and Gender Information Value Date Recorded Sex Assigned at Not on file Legal Sex Male 4:47 AM 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 Exam: MRI THORACIC WO CONTRAST Date/Time of Exam: Nov 08, 2014 08:35:27 AM Reason For Exam: Thoracic spondylosis without myelopathy. Technique: MRI of the thoracic spine was performed without the administration of intravenous contrast. Alignment is normal. No focal bony lesion, fracture or significant degenerative changes are seen. A few tiny disc bulges are present in the mid and lower thoracic spine. No spinal stenosis or significant foraminal narrowing is seen. Spinal cord shows no abnormality. Impression: Mild degenerative disc disease but no spinal stenosis or other significant abnormality. KARMA/raciel - uploaded from [employer] - Narrative Procedure Note Jaime Leary MD - 11/08/2014 IMPRESSION IMPRESSION: See report below. Exam: MRI THORACIC WO CONTRAST Date/Time of Exam: Nov 08, 2014 08:35:27 AM Reason For Exam: Thoracic spondylosis without myelopathy. Technique: MRI of the thoracic spine was performed without the administration of intravenous contrast. Alignment is normal. No focal bony lesion, fracture or significant degenerative changes are seen. A few tiny disc bulges are present in the mid and lower thoracic spine. No spinal stenosis or significant foraminal narrowing is seen. Spinal cord shows no abnormality. Impression: Mild degenerative disc disease but no spinal stenosis or other significant abnormality. KARMA/raciel - uploaded from [employer] - us Diann Jasso MD MR ORDERABLES Final Resul t documented in this encounter Visit Diagnoses Diagnosis Thoracic spondylosis without myelopathy- Primary Thoracic spondylosis without myelopathy documented in this encounter Care Teams Emergency Care Tech Relationship Specialty Start Date End Date Primitivo Crowder MD [address] [place] [phone] PCP - General Family Practice 05/20/14 documented as of this encounter
--- OUTSIDE RECORDS SUMMARY | 2025-04-26 04:26 | XMS_ITS | Encounter Summary ---
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
--- OUTSIDE RECORDS SUMMARY | 2025-04-26 04:26 | XMS_ITS | Encounter Summary ---
Author Organization [facility] Address [address] [place] [address] Care Team Providers Care Inclusion Paraeducator Name Role Phone Primitivo Crowder MD Primary Care Provider [phone] Encounter Details Date Type Department Care Team (Latest Contact Info) Description 07/20/2004 Outpatient Historical [facility] [address] [phone] Primitivo Crowder MD [address] [place] [phone] HYPERTENSION NOS (Primary Dx); MIXED HYPERLIPIDEMIA; DIZZINESS AND GIDDINESS Social History Tobacco Use Types Packs/Day Years Used Date Smoking Tobacco: Never Assessed Sex and Gender Information Value Date Recorded Sex Assigned at Not on file 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
--- OUTSIDE RECORDS SUMMARY | 2025-04-26 04:26 | XMS_ITS | Encounter Summary ---
Author Organization [facility] Address [address] [place] [address] Care Team Providers Care Manager Retention Name Role Phone Primitivo Crowder MD Primary Care Provider [phone] Encounter Details Date Type Department Care Team (Latest Contact Info) Description 06/21/2002 Outpatient Historical [facility] [address] [phone] Primitivo Crowder MD [address] [place] [address] ANAL FISSURE (Primary Dx); ABDOMINAL PAIN LUQ; Pure hypercholesterolem; HYPERTENSION NOS Social History Tobacco Use Types Packs/Day Years Used Date Smoking Tobacco: Never Assessed Sex and Gender Information Value Date Recorded Sex Assigned at Not on file 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
--- OUTSIDE RECORDS SUMMARY | 2025-04-26 04:26 | XMS_ITS | Encounter Summary ---
Author Organization [facility] Address [address] [place] [address] Care Team Providers Care Sephora Product Consultant Name Role Phone Primitivo Crowder MD Primary Care Provider [phone] Encounter Details Date Type Department Care Team (Late st Contact Info) Description 11/27/2007 Outpatient Historical [facility] End[facility] Michelle [address] [place] [address] Pietro Crystal MD NO ADDRESS ON FILE Social History Tobacco Use Types Packs/Day Years Used Date Smoking Tobacco: Never Assessed Sex and Gender Information Value Date Recorded Sex Assigned at Not on file 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
--- OUTSIDE RECORDS SUMMARY | 2025-04-26 04:26 | XMS_ITS | Encounter Summary ---
Author Organization [facility] Address [address] [place] [address] Care Team Providers Care Process Mechanic Name Role Phone Primitivo Crowder MD Primary Care Provider [phone] Encounter Details Date Type Department Care Team (Latest Contact Info) Description 07/08/2002 Outpatient Historical [facility] [address] [phone] Primitivo Crowder MD [address] [place] [address] HYPERLIPIDEMIA NEC/NOS (Primary Dx); HYPERTENSION NOS; ACUTE ALCOHOLIC HEPATITIS (CMS/HCC) Social History Tobacco Use Types Packs/Day Years Used Date Smoking Tobacco: Never Assessed Sex and Gender Information Value Date Recorded Sex Assigned at Not on file 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
--- OUTSIDE RECORDS SUMMARY | 2025-04-26 04:26 | XMS_ITS | Encounter Summary ---
Author Organization [facility] Address [address] [place] [address] Care Team Providers Care Web Services Architect Name Role Phone Primitivo Crowder MD Primary Care Provider [phone] Encounter Details Date Type Department Care Team (Late st Contact Info) Description 04/20/2008 Outpatient Historical 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 Gender Identity Not on file Sexual Orientation Not on file documented as of this encounter Plan of Treatment Not on file documented as of this encounter Procedures Procedure Name Priority Date/Time Associated Diagnosis Comments PATHOLOGY Routine 05/09/2008 8:37 AM CDT CBC WITH DIFFERENTIAL Stat 05/09/2008 6:05 AM CDT COMPREHENSIVE METABOLIC PANEL Stat 05/09/2008 6:05 AM CDT documented in this encounter Results * PATHOLOGY (05/09/2008 8:37 AM CDT) PATHOLOGY/CYT OLOGY REPORT [facility] Anatomic Pathology Dept [address] [facility] [address] Patient: HUDSON GRFIFIN Accn No: [id number] Collected: 05/09/2008 8:37:00 AM SURGICAL PATHOLOGY FINAL REPORT Diagnosis A. Gallbladder, cholecystectomy - chronic cholecystitis. Diann Ellington M.D. (Electronically signed by) Verified: 05/10/08 JENI/MALDONADO Clinical Information Chronic cholecystitis. Specimen Source AGallbladder Microscopic Description Microscopic examination was performed. Gross Description Part A. Submitted in a container of formalin labelled Elias, gallbladder is a gallbladder measuring 8.9 x 4.2 x 2.1 cm. Sectioning reveals approximately 4 cc of yellowish-green, watery bile. The gallbladder wall measures up to 0.2 cm in thickness and appears focally edematous. The lining of the gallbladder appears hyperemic. No calculi are identified within the gallbladder or cystic duct. Circulation Manager sections of the gallbladder wall and the cystic duct are submitted in A1. DLS/CEP INTERFACE SYSTEM 05/09/2008 8:37 AM CDT us Bernardino Pickett MD PATHOLOGY/CYTOLOGY ORDERABL ES Final Result INTERFACE SYSTEM Refer to clinic/hospital department * (ABNORMAL) CBC WITH DIFFERENTIAL (05/09/2008 6:05 AM CDT) EOSINOPHIL ABSOLUTE 0.4 0.0 - 0.7 K/ul [facility] EOSINOPHILS 4.2 0.0 - 7.0 % [facility] RBC 5.35 4.60 - 6.20 Mil/ul [facility] MCHC 33.3 30.0 - 35.0 g/dL [facility] LYMPHOCYTE ABSOLUTE 2.1 1.2 - 4.0 K/ul [facility] LYMPHOCYTES 24.7 24.0 - 44.0 % [facility] MCV 83.6(L) 84.0 - 103.0 Fl [facility] BASOPHILS 0.2 0.0 - 1.0 % [facility] MPV 10.4 8.9 - 12.8 Fl [facility] BASOPHILS ABSOLUTE 0.0 0.0 - 0.2 K/ul [facility] HEMOGLOBIN 14.9 14.0 - 18.0 g/dL [facility] MONOCYTES 8.3 2.0 - 10.0 % [facility] RDW 12.9 11.0 - 14.5 % [facility] MONOCYTE ABSOLUTE 0.7(H) 0.1 - 0.6 K/ul [facility] WBC 8.6 4.5 - 11.0 K/ul [facility] NEUTROPHILS 62.6 42.2 - 75.2 % [facility] MCH 27.9 27.0 - 34.0 pg [facility] NEUTROPHIL ABSOLUTE 5.4 2.0 - 8.0 K/ul [facility] HEMATOCRIT 44.7 41.0 - 53.0 % [facility] PLATELETS 280 140 - 440 K/ul [facility] Blood specimen (specimen) 05/09/2008 6:05 AM CDT 05/09/2008 6:13 AM CDT Bernardino Pickett MD HEMATOLOGY ORDERABLES Final Result INTERFACE SYSTEM Refer to clinic/hospital department [facility] IA# [id number] [address] [place] [address] * COMPREHENSIVE METABOLIC PANEL (05/09/2008 6:05 AM CDT) GLUCOSE 110 70 - 110 mg/dL [facility] CHLORIDE 106 95 - 110 mEq/L [facility] ALBUMIN/GLOBULIN RATIO 2.0 1.0 - 2.3 [facility] ALKALINE PHOSPHATASE 60 25 - 100 U/L [facility] SODIUM 141 136 - 145 mEq/L [facility] BILIRUBIN TOTAL 1.2 0.3 - 1.2 mg/dL [facility] TOTAL PROTEIN 7.4 6.3 - 8.2 g/dL [facility] BUN 17 9 - 20 mg/dL [facility] AST 25 8 - 33 U/L [facility] CO2 29 22 - 32 mmol/l [facility] ANION GAP 10 9 - 20 mEq/L [facility] ALBUMIN 4.9 3.5 - 5.0 g/dL [facility] POTASSIUM 4.1 3.5 - 5.0 mEq/L [facility] GLOBULIN (CALC) 2.5 2.4 - 3.9 g/dL [facility] CREATININE 1.1 0.7 - 1.5 mg/dL [facility] CALCIUM 10.2 8.4 - 10.5 mg/dL [facility] OSMOLALITY, CALCULATED 292 275 - 295 mOsm/Kg [facility] ALT 29 4 - 36 IU/L [facility] Blood specimen (specimen) 05/09/2008 6:05 AM CDT 05/09/2008 6:13 AM CDT us Bernardino Pickett MD CHEMISTRY ORDERABLES Final Result Performing Organization Address City/State/[facility] Co de Phone Number INTERFACE SYSTEM Refer to clinic/hospital department [facility] CLIA# [id number] [address] [place] [address] documented in this encounter Visit Diagnoses Not on filedocumented in this encounter Care Teams Web Services Architect Relationship Specialty Start Date End Date Primitivo Crowder MD [address] [place] [address] PCP - General Family Practice 05/20/14 documented as of this encounter
--- OUTSIDE RECORDS SUMMARY | 2025-04-26 04:26 | XMS_ITS | Encounter Summary ---
Author Organization [facility] Address [address] [place] [address] Care Team Providers Care Home Insurance Agent Name Role Phone Primitivo Crowder MD Primary Care Provider [phone] Encounter Details Date Type Department Care Team (Latest Contact Info) Description 06/29/2002 Outpatient Historical [address] [phone] Primitivo Crowder MD [address] [place] [phone] ABDOMINAL PAIN UNSPEC SITE (Primary Dx); SPRAIN SHOULDER/ARM NOS; ACUTE ALCOHOLIC HEPATITIS (CMS/HCC) Social History Tobacco Use Types Packs/Day Years Used Date Smoking Tobacco: Never Assessed Sex and Gender Information Value Date Recorded Sex Assigned at Not on file 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
--- OUTSIDE RECORDS SUMMARY | 2025-04-26 04:26 | XMS_ITS | Encounter Summary ---
Author Organization [facility] Address [address] [place] [address] Care Team Providers Care Shredder Operator Name Role Phone Primitivo Crowder MD Primary Care Provider [phone] Encounter Details Date Type Department Care Team (Late st Contact Info) Description 01/12/2008 Emergency [facility] Emergency Department [address] 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 Gender Identity Not on file Sexual Orientation Not on file documented as of this encounter Plan of Treatment Not on file documented as of this encounter Procedures Procedure Name Priority Date/Time Associated Diagnosis Comments CT HEAD WO CONTRAST Routine 01/12/2008 5 :08 PM CDT CARDIAC ENZYMES Stat 01/12/2008 2:20 PM CDT CBC WITH DIFFERENTIAL Stat 01/12/2008 2:20 PM CDT PTT Stat 01/12/2008 2:20 PM CDT PROTIME-INR Stat 01/12/2008 2:20 PM CDT BASIC METABOLIC PANEL Stat 01/12/2008 2:20 PM CDT XR CHEST PA OR AP 1 VW Routine 01/12/2008 2:00 PM CDT documented in this encounter Results * CT HEAD WO CONTRAST (01/12/2008 5:08 PM CDT) Anatomical Region Laterality Modality Head Other 01/12/2008 5:08 PM CDT Narrative 01/12/2008 5:13 PM CDT Exam: CT Head without Contrast Date/Time of Exam: Jan 12, 2008 5:08:48 PM History: Please see order comments. Contiguous thin section images were obtained of the brain from the skullbase through the vertex without infusion. No IV contrast. No comparisons. The ventricular system and subarachnoid spaces are not enlarged. There are no intraparenchymal hemorrhages or extra-axial fluid collections. No strokes are identified by CT criteria as the bassett-white matter differentiation throughout the brain is preserved. The suprasellar cistern and basilar cistern are preserved. There are no masses or mass effect. The visualized orbital structures appear to be within normal limits. The paranasal sinuses and mastoid air cells are clear. There are no calvarial abnormalities. Summary: No definite acute intracranial abnormality. - Dictated By: Ray Gómez Jr., M.D. Electronically Signed By: Ray Gómez Jr., M.D. Date Signed: 01/13/08 Procedure Note Ray Gómez Jr. - 02/27/2008 Exam: CT Head without Contrast Date/Time of Exam: Jan 12, 2008 5:08:48 PM History: Please see order comments. Contiguous thin section images were obtained of the brain from theskullbase through the vertex without infusion. No IV contrast. No comparisons. The ventricular system and subarachnoid spaces are not enlarged. There areno intraparenchymal hemorrhages or extra-axial fluid collections. No strokes are identified byCT criteria as the bassett-white matter differentiation throughout the brain is preserved. The suprasellarcistern and basilar cistern are preserved. There are no masses or mass effect. The visualized orbitalstructures appear to be within normal limits. The paranasal sinuses and mastoid air cells are clear.There are no calvarial abnormalities. Summary: No definite acute intracranial abnormality. - Dictated By: Ray Gómez Jr., M.D. Electronically Signed By: Ray Gómez Jr., M.D. Date Signed: 01/13/[address] ORDERABLES Final Resu lt * BASIC METABOLIC PANEL (01/12/2008 2:20 PM CDT) [facility] CALCIUM 9.7 8.4 - 10.5 mg/dL [facility] GLUCOSE 94 70 - 110 mg/dL [facility] CHLORIDE 104 95 - 110 mEq/L [facility] ANION GAP 10 9 - 20 mEq/L [facility] SODIUM 138 136 - 145 mEq/L [facility] BUN 12 9 - 20 mg/dL [facility] CO2 29 22 - 32 mmol/l [facility] POTASSIUM 4.5 3.5 - 5.0 mEq/L [facility] OSMOLALITY, CALCULATED 285 275 - 295 mOsm/Kg [facility] CREATININE 1.0 0.7 - 1.5 mg/dL [facility] Blood specimen (specimen) 01/12/2008 2:20 PM CDT 01/12/2008 2:22 PM CDT Joe Colvin MD CHEMISTRY ORDERABLES Final Result [facility] CLIA# [id number] [address] [place] [address] * (ABNORMAL) CBC WITH DIFFERENTIAL (01/12/2008 2:20 PM CDT) Pathologist [facility] MCV 81.7(L) 84.0 - 103.0 Fl [facility] BASOPHILS 0.1 0.0 - 1.0 % [facility] MPV 10.6 8.9 - 12.8 Fl [facility] HEMOGLOBIN 15.1 14.0 - 18.0 g/dL [facility] EOSINOPHIL ABSOLUTE 0.3 0.0 - 0.7 K/ul [facility] MONOCYTES 8.0 2.0 - 10.0 % [facility] RDW 13.4 11.0 - 14.5 % [facility] WBC 7.8 4.5 - 11.0 K/ul [facility] NEUTROPHILS 58.6 42.2 - 75.2 % [facility] MCH 26.8(L) 27.0 - 34.0 pg [facility] NEUTROPHIL ABSOLUTE 4.5 2.0 - 8.0 K/ul [facility] BASOPHILS ABSOLUTE 0.0 0.0 - 0.2 K/ul [facility] HEMATOCRIT 46.1 41.0 - 53.0 % [facility] PLATELETS 296 140 - 440 K/ul [facility] EOSINOPHILS 3.9 0.0 - 7.0 % [facility] MONOCYTE ABSOLUTE 0.6 0.1 - 0.6 K/ul [facility] RBC 5.64 4.60 - 6.20 Mil/ul [facility] MCHC 32.8 30.0 - 35.0 g/dL [facility] LYMPHOCYTE ABSOLUTE 2.3 1.2 - 4.0 K/ul [facility] LYMPHOCYTES 29.4 24.0 - 44.0 % [facility] Blood specimen (specimen) 01/12/2008 2:20 PM CDT 01/12/2008 2:22 PM CDT us Joe Colvin MD HEMATOLOGY ORDERABLES Maci pagan Result Performing Organization Address City/State/[facility] Co de Phone Number [facility] CLIA# [id number] [address] [place] [address] * PTT (01/12/2008 2:20 PM CDT) PTT 29.3 22.5 - 36.5 Secs [facility] Comment: Therapeutic Range: Hi-level PE/DVT heparin protocol 80.1 -95.0 sec Lo-level PE/DVT heparin protocol 67.1 - 80.0 sec Cardiac Heparin Protocol 67.1 - 85.0 sec Neuro Heparin Protocol 67.1 - 80.0 sec As of 10/22/2007 note change in APTT Normal Range. Blood specimen (specimen) 01/12/2008 2:20 PM CDT 01/12/2008 2:22 PM CDT Joe Colvin MD HEMATOLOGY ORDERABLES Maci l Result Performing Organization Address [facility] Co de Phone Number [facility] CLIA# [id number] [address] [place] [address] * PROTIME-INR (01/12/2008 2:20 PM CDT) PROTIME 14.2 12.8 - 15.8 Secs [facility] Comment:As of 2007 not e change in normal range. INR 1.0 [facility] Comment: Expected Values for INR: DVT/PE Goal INR 2.5; range 2.0 - 3.0 Valve Replacement Tissue Goal INR 2.5; range 2.0 - 3.0 Mechanical Goal INR 3.0; range 2.5 - 3.5 POST-WI Goal INR 2.5; range 2.0 - 3.0 or Goal 3.0; range 2.5 - 3.5 Atrial Fibrillation Goal INR 2.5; range 2.0 - 3.0 Ischemic Stroke Goal INR 2.5; range 2.0 - 3.0 For additional information see Guidelines for Anticoagulation available from the pharmacy Hitesh Ye. [phone] Blood specimen (specimen) 01/12/2008 2:20 PM CDT 01/12/2008 2:22 PM CDT us Joe Colvin MD HEMATOLOGY ORDERABLES Maci l Result Performing Organization Address City/[facility] Co de Phone Number [facility] CLIA# [id number] [address] [place] [address] * CARDIAC ENZYMES (01/12/2008 2:20 PM CDT) TROPONIN I <0.1 0.0 - 1.3 ng/mL [facility] CKMB 0.6 0.0 - 5.0 ng/mL [facility] Blood specimen (specimen) 01/12/2008 2:20 PM CDT 01/12/2008 2:22 PM CDT us Joe Colvin MD CHEMISTRY ORDERABLES Final Result [facility] CLIA# [id number] [address] [place] [address] * XR CHEST PA OR AP (01/12/2008 2:00 PM CDT) Anatomical Region Laterality Modality Chest Other 01/12/2008 2:00 PM CDT Narrative 01/12/2008 2:00 PM CDT Sternotomy changes are noted. The heart and mediastinum are unremarkable. The lungs are clear. No vascular congestion is appreciated. The study appears unchanged compared to October 01. Impression: No active disease. - Dictated By: Cheko Matamoros M.D. Electronically Signed By: Cheko Matamoros M.D. Date Signed: 01/12/08 Procedure Note Cheko Matamoros - 01/12/2008 Sternotomy changes are noted. The heart and mediastinum are unremarkable.The lungs are clear. No vascular congestion is appreciated. The study appears unchanged comparedto October 01. Impression: No active disease. - Dictated By: Cheko Matamoros M.D. Electronically Signed By: Cheko Matamoros M.D. Date Signed: 01/12/08 us Joe Colvin MD DIAGNOSTIC IMAGING ORDERAB LES Final Result documented in this encounter Visit Diagnoses Not on filedocumented in this encounter Care Teams Shredder Operator Relationship Specialty Start Date End Date Primitivo Crowder MD [address] [place] [address] PCP - General Family Practice 05/20/14 documented as of this encounter
--- OUTSIDE RECORDS SUMMARY | 2025-04-26 04:26 | XMS_ITS | Encounter Summary ---
Author Organization [facility] Address [address] [place] [address] Care Team Providers Care Cylinder Press Feeder Name Role Phone Primitivo Crowder MD Primary Care Provider [phone] Encounter Details Date Type Department Care Team (Latest Contact Info) Description 01/28/2005 Outpatient Historical [facility] [address] [phone] Primitivo Crowder MD [address] [place] [phone] HYPERTENSION NOS (Primary Dx) Social History Tobacco Use Types Packs/Day Years Used Date Smoking Tobacco: Never Assessed Sex and Gender Information Value Date Recorded Sex Assigned at Not on file 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
--- OUTSIDE RECORDS SUMMARY | 2025-04-26 04:26 | XMS_ITS | Encounter Summary ---
Author Organization [facility] Address [address] [place] [address] Care Team Providers Care Strapper And Buffer Name Role Phone Primitivo Crowder MD Primary Care Provider [phone] Encounter Details Date Type Department Care Team (Latest Contact Info) Description 08/13/2004 Outpatient Historical [facility] [address] [phone] Primitivo Crowder MD [address] [place] [phone] HYPERTENSION NOS (Primary Dx) Social History Tobacco Use Types Packs/Day Years Used Date Smoking Tobacco: Never Assessed Sex and Gender Information Value Date Recorded Sex Assigned at Not on file 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
--- OUTSIDE RECORDS SUMMARY | 2025-04-26 04:26 | XMS_ITS | Clinical Summary ---
Author Organization [facility] Address [address] [facility] [place] [address] Care Team Providers Care Tax Collection Coordinator Name Role Phone Unavailable Primary Care Provider Unavailabl e Allergies No known active allergies Medications aspirin (EDIL CHEWABLE) 81 mg Tablet, Chewable Take 81 mg by mouth. Active metoprolol succinate (Toprol XL) 50 mg Extended Release 24 hour tabletIndications :Hypertension, unspecified type,Intention tremor Take 1 Tablet (50 mg) by mouth daily. For tremors 30 Tablet 2 08/09/19 Active Additional Information Patient not taking.Reported on 11/14/2022 glimepiride (AMARYL) 4 mg tabletIndications :Type 2 diabetes mellitus with other specified complication, without long-term current use of insulin ([facility]) Take 1 Tablet (4 mg) by mouth daily with breakfast. DIABETES 90 Tablet 08/14/19 Active Additional Information Patient not taking.Reported on 11/14/2022 Blood-Glucose Meter KitIndications:Ty pe 2 diabetes mellitus with other specified complication, without long-term current use of insulin ([facility]) For twice daily blood sugar monitoring, fasting and after 1 meal . DX E11.69 , A1c 13.3 1 Each 08/14/19 Active blood sugar diagnostic (Blood Glucose Test) StripIndications: Type 2 diabetes mellitus with other specified complication, without long-term current use of insulin ([facility]) For twice daily blood sugar monitoring, fasting and after 1 meal . DX E11.69 , A1c 13.3 200 Strip 3 01/11/20 22 Active lancetsIndication s:Type 2 diabetes mellitus with other specified complication, without long-term current use of insulin ([facility]) Inject 1 Each by subcutaneous injection 2 times daily. 200 Each 3 08/14/19 22 Active bismuth subsalicylate (PEPTO-BISMOL) 262 mg/15 mL suspension Take 30 mL by mouth every 6 hours as needed for Indigestion. 02/09/20 15 Active SITagliptin (Januvia) 100 mg Tablet Take 1 Tablet (100 mg) by mouth daily with breakfast. For diabetes. 90 Tablet 1 01/24/20 Active Additional Information Patient not taking.Reported on 11/14/2022 traMADoL (ULTRAM) 50 mg tabletIndications :Diabetic ulcer of toe of left foot associated with type 2 diabetes mellitus, unspecified ulcer stage ([facility]),Diabeti c ulcer of right great toe (CMS/[facility]) Take 1-2 Tablets (50-100 mg) by mouth every 6 hours as needed for Pain. 30 Tablet 11/15/19 23 Active metFORMIN (GLUCOPHAGE XR) 500 mg Extended Release 24 hour tabletIndications :Type 2 diabetes mellitus with other specified complication, without long-term current use of insulin ([facility]) Take 1 Tablet (500 mg) by mouth 2 times daily with meals. For diabetes 200 Tablet 3 11/26/19 23 Active oxyCODONE (OXAYDO) 5 mg tablet, oral only tablet Take 5 mg by mouth every 4 hours as needed for Pain. 11/04/19 25 Active lisinopriL (PRINIVIL) 10 mg tablet Take 10 mg by mouth daily. Active levothyroxine 200 mcg tablet Take 200 mcg by mouth daily in the morning. Active glipiZIDE (GLUCOTROL) 10 mg tablet Take 10 mg by mouth daily with breakfast. 02/24/20 25 Active rosuvastatin (CRESTOR) 20 mg tablet Take 20 mg by mouth daily at bedtime. 02/24/20 25 Active cholecalciferol (VITAMIN D3) 10 mcg/mL (400 unit/mL) Drops Take 2,000 Units by mouth daily. 12/09/19 25 Active calcium CITRATE 200 mg (950 mg) Tablet Take 1,900 mg by mouth every 6 hours. 12/11/19 25 Active MAGNESIUM OXIDE ORAL Take by mouth. Activ e ascorbic acid (VITAMIN C) 250 mg Tablet, Chewable Take 250 mg by mouth daily. Active insulin glargine-yfgn 100 unit/mL pen syringe Inject 30 Units by subcutaneous injection 2 times daily. 03/23/20 Active insulin lispro (HumaLOG,ADMELOG) 100 unit/mL pen syringe Inject 0-18 Units by subcutaneous injection 3 times daily with meals. 03/23/20 Active insulin lispro (HumaLOG,ADMELOG) 100 unit/mL pen syringe Inject 3 Units by subcutaneous injection 3 times daily with meals. 03/23/20 Active Lidocaine 4 % Adhesive Patch, Medicated Apply to Neck and lower back. Apply only once for up to 12 hours within a 24 hour period. Patches may be cut into smaller sizes with scissors prior to the removal of the release liner. Clothing may be worn over the area of application. For more information use the [employer] ADMINISTRATION link. 03/24/20 Active naloxone (NARCAN) 4 mg/spray [place], Non-Aerosol EMERGENCY USE ONLY: Administer 1 spray (4 mg) in one nostril one time. May repeat in alternating nostrils every 2-3 min until responsive or EMS arrives. 2 Each 3 03/23/20 Active Active Problems Problem Noted Date Diagnosed Date Ex-smoker 03/23/2025 Post-surgical hypothyroidism 03/23/2025 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 03/23/2025 Right great toe amputee 03/23/2025 Type 2 diabetes mellitus with hyperglycemia 03/05 Cervical myelopathy (CMS/HCC ) s/p C5-C6 anterior decompression and fusion complicated by post-op hematoma s/p evacuation 03/23/2025 Unable to walk 03/13/2025 Other cervical disc degeneration at C5-C6 level 03/13/2025 Cervical disc disease with myelopathy 03/13/2025 Neck pain 03/12/2025 Unable to care for self 03/12/2025 Parkinson's disease 03/11/2025 Chronic low back pain 03/11/2025 History of papillary thyroid cancer s/p thyroide ctomy 11/15/2024 Diabetes mellitus 11/06/2021 Diabetic ulcer of toe of lef t foot associated with type 2 diabetes mellitus 11/06/2021 Psoriasis 05/20/2014 Gastritis 05/20/2014 ASHD (arteriosclerotic heart disease) 05/20/2014 S/P CABG (coronary artery bypass graft) 05/20/20 14 Abdominal pain 05/20/2014 Nausea 05/20/2014 CAD (coronary artery disease) 05/20/2014 Anxiety 04/29/2014 Elevated bilirubin 04/28/2014 Tobacco use 04/28/2014 History of alcohol abuse 04/28/2014 Chest pain 10/08/2011 Hyperglycemia 08/29/2008 Hyperlipidemia 06/27/2008 Hypertension 06/27/2008 Hx of non-ST elevation myocardial infarction ([facility] JOCELINE) Resolved Problems Problem Noted Date Diagnosed Date Resolved Date Acute respiratory failure 03/16/2025 Chest pain 05/20/2014 06/16/2014 Abdominal pain 04/29/2014 04/29/2014 Chest pain 04/28/2014 04/29/2014 Encounters Date Type Department Care Team Description 04/12/2025 External Device Data STL ABSTRACTION Provider, Abstract 04/12/2025 External Device Data STL ABSTRACTION Provider, Abstract 03/23/2025 2:45 PM CDT - 03/27/2025 3:30 PM CDT Hospital Encounter [facility] [address] [place] [address] Raymond Escobar, Tramaine Loza MD Cervical myelopathy ([facility]) Discharge Disposition: Left Against Medical Advice 03/23/2025 Telephone [facility] [address] [facility] [address] [address] Mami Dickson Appointment Notification 03/16/2025 2:03 PM CDT - 03/16/2025 4:55 PM CDT Surgery [facility] Operating Room [facility] [place] [phone] Shawn Snowden MD NECK INCISION AND DRAINAGE 03/16/2025 1:37 PM CDT Anesthesia Event [facility] Operating Room [address] [place] [address] Tramaine Brar MD 03/15/2025 External Device Data STL ABSTRACTION Provider, Abstract 03/15/2025 External Device Data STL ABSTRACTION Provider, Abstract 03/15/2025 External Device Data STL ABSTRACTION Provider, Abstract 03/14/2025 3:10 PM CDT Anesthesia Event [facility] Operating Room [address] [place] [address] Tramaine Brar MD [place]yuk, Roman, CRNA 03/14/2025 2:05 PM CDT - 03/14/2025 5:10 PM CDT Surgery [facility] Operating Room [address] [place] [phone] Roger Eisenberg MD CERVICAL DISCECTOMY FUSION ANTERIOR - 1 LEVEL 03/11/2025 5:35 PM CDT - 03/23/2025 2:30 PM CDT Hospital Encounter [facility] 6CD Neurology [address] [place] [phone] Tamy Lindsey MD Ellis, MD Dudley Watkins, MD Nettie Marques Swetha, MD Saeed, Mariam, MD Neupane, Gagan, MD Kaur, MD Isaiah Cervical disc disease with myelopathy Discharge Disposition: Rehab Facility IP 03/11/2025 - 03/11/2025 11:59 PM CDT Hospital Encounter [facility] Emergency Medical Services [address] [address] Ambulance, [facility] Discharge Disposition: [facility] 03/11/2025 Travel 03/02/2025 - 03/02/2025 11:59 PM CDT Hospital Encounter [facility] Emergency Medical Services [address] [address] Ambulance, [facility] Discharge Disposition: [facility] 02/16/2025 External Device Data STL ABSTRACTION Provider, Abstract 02/15/2025 External Device Data STL ABSTRACTION Provider, Abstract from Last 3 Months Family History Medical History Relation Name Comments Heart Disease Brother 1 Other Father Other Mother Heart Disease Sister Lung Cancer Neg Hx Relation Name Status Comments Brother 1 Alive Brother 2 Father Mother Sister Alive Social History Tobacco Use Types Packs/Day Years Used Date Smoking Tobacco: Former Cigarettes Q uit: 05/03/2014 Smokeless Tobacco: Current Chew Tobacco Cessation:Ready to Q uit: No; Counseling Given: Yes Alcohol Use Standard Drinks/Week Comments Yes 14 (1 standard drink = 0.6 oz pu re alcohol) Feeling Safe Answer Date Recorded Are you in a relationship wi th someone who hurts you emotionally and/or physically? 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 Gender Identity Not on file Sexual Orientation Not on file Last Filed Vital Signs Vital Sign Reading Time Taken Comments Blood Pressure 148/76 03/27/2025 11:00 AM CDT Pulse 72 03/27/2025 11:00 AM CDT Temperature 36.4 C (97.5 F) 03/27/2025 5:11 AM CDT Respiratory Rate 18 03/27/2025 5:11 AM CDT Oxygen Saturation 94% 03/27/2025 11: 00 AM CDT Inhaled Oxygen Concentration - - Weight 97.1 kg (214 lb 1.6 oz) 03/23/2025 2:49 PM CDT 274.4-60.3=214.1 Height 182.9 cm (6') 03/23/2025 2:49 PM CDT Body Mass Index 29.04 03/23/2025 2:49 PM CDT Plan of Treatment Upcoming Encounters Date Type Department Care Team (Late st Contact Info) Description 05/11/2025 11:20 AM CDT Office Visit [facility] Neurosurgery [address] [place] [address] Cait Carolina PA [address] [place] [address] 08/29/2025 1:15 PM JUDICIAL REGISTRAR Office Visit [facility] Endocrinology [facility] [address] [place] [address] Reanna Bernardo MD [address] [place] [address] Chano Elizabeth PA [address] [place] [address] Health Maintenance Due Date Last Done Comments DIABETES ANNUAL RETINAL EXAM 1976 PNEUMOCOCCAL VACCINE 50+ YEA RS (1 of 2 - PCV) 1977 FIT-DNA Q 3 years 01/01/2004 FIT/FOBT Q 1 year 01/01/2004 Flex Sig/CT Colonography Q 5 years 01/01/2004 ZOSTER VACCINE (1 of 2) 2008 RSV VACCINE (60+ or ) (1 - Risk 60-74 years 1-dose series) 2018 DIABETES MICROALBUMIN ANNUAL SCREEN 08/09/2022 08/09/2021 LDL CHOLESTEROL ANNUAL 08/09/2022 , 05/11/2019, 05/11/2019 DIABETES ANNUAL FOOT EXAM 01/04/2023 01/04/2022 COLORECTAL SCREENING 02/14/2025 02/14/2015 Colorectal Cancer Screening 02/14/2025 INFLUENZA VACCINE (#1) 2025 DIABETES HBA1C Q 6 MONTHS 09/17/20252024, 09/11/2024, 01/04/2022, Additional history exists DTAP/TDAP/TD VACCINES (2 - T d or Tdap) 10/22/2028 10/22/2018 Abdominal Aortic Aneurysm (A AA) Screening Completed 11/16/2007 Medical Devices Implanted Type Area Child Abuse Worker Device Identifier Shelf Expiration Date Model / Serial / Lot Clip Ligating Horizon Med Ti [id number] - Csc - [id number] Implanted:Qty: 1 on 03/16/2025 by Shawn Snowden MD at [facility] Clip N/A: Neck TELEFLEX- WECK CLOSURE SYS [id number] 05/26/2029 [id number] / / [id number] Clip Ligating Horizon Sm [id number] - [id number] Implanted:Qty: 1 on 03/16/2025 by Shawn Snowden MD at [facility] Clip N/A: Neck TELEFLEX INC [id number] 08/26/2029 [id number] / / [id number] Hemostatic Surgiflo 8ml W/ Thrombin 2994 - [id number] Implanted:Qty: 1 on 03/14/2025 by Roger Eisenberg MD at [facility] Hemostatic N/A: Neck J&J- [employer] [id number] 05/03/2026 2994 / / [id number] Hemostatic Surgiflo 8ml W/ Thrombin 2994 - [id number] Implanted:Qty: 1 on 03/16/2025 by Shawn Snowden MD at [facility] Hemostatic N/A: Neck J&J- [employer] [id number] 05/03/2026 2994 / / [id number] Plate [place] Vision Elite 21.0mm [id number] - [id number] Implanted:Qty: 1 on 03/14/2025 by Roger Eisenberg MD at [facility] Plate N/A: Neck MEDTRONIC- SOFAMOR DANEK [id number] / / Screw [place] Sd Va 4.0x15mm [id number] - [id number] Implanted:Qty: 1 on 03/14/2025 by Roger Eisenberg MD at [facility] Screw N/A: Neck MEDTRONIC- SOFAMOR DANEK [id number] / / Screw [place] Sd Va 4.0x15mm [id number] - [id number] Implanted:Qty: 1 on 03/14/2025 by Roger Eisenberg MD at [facility] Screw N/A: Neck MEDTRONIC- SOFAMOR DANEK [id number] / / Screw [place] Sd Va 4.0x15mm [id number] - [id number] Implanted:Qty: 1 on 03/14/2025 by Roger Eisenberg MD at [facility] Screw N/A: Neck MEDTRONIC- SOFAMOR DANEK [id number] / / Screw [place] Sd Va 4.0x15mm [id number] - [id number] Implanted:Qty: 1 on 03/14/2025 by Roger Eisenberg MD at [facility] Screw N/A: Neck [employer]- SOFAMOR DANEK [id number] / / Cage Endoskeleton Tc Nanoloc 6 Lrdtc Tc [id number] Med 2300-6125-N - [id number] Implanted:Qty: 1 on 03/14/2025 by Roger Eisenberg MD at [facility] Spacer N/A: Neck MEDTRONIC- SOFAMOR DANEK 01/07/2029 [id number] -[id number] / / [id number] Allograft Putty Influx+ Dbm 1ml Iflx-Fw-01 - [id number] Implanted:Qty: 1 on 03/14/2025 by Roger Eisenberg MD at [facility] Tissue N/A: Neck [employer] 08/11/2027 IFLX-FW-0 1 / [id number] / Procedures Procedure Name Priority Date/Time Associated Diagnosis Comments POC GLUCOSE Routine 03/27/2025 11:34 AM CDT POC GLUCOSE Routine 03/27/2025 8:00 AM CDT POC GLUCOSE Routine 03/26/2025 10:26 PM CDT POC GLUCOSE Routine 03/26/2025 5:14 PM CDT POC GLUCOSE Routine 03/26/2025 12:15 PM CDT POC GLUCOSE Routine 03/26/2025 8:49 AM CDT POC GLUCOSE Routine 03/26/2025 6:54 AM CDT POC GLUCOSE Routine 03/25/2025 8:48 PM CDT POC GLUCOSE Routine 03/25/2025 4:27 PM CDT POC GLUCOSE Routine 03/25/2025 12:06 PM CDT POC GLUCOSE Routine 03/25/2025 7:12 AM CDT POC GLUCOSE Routine 03/24/2025 7:48 PM CDT POC GLUCOSE Routine 03/24/2025 5:24 PM CDT TELEMETRY REPORT 03/24/2025 2:52 PM CDT POC GLUCOSE Routine 03/24/2025 12:08 PM CDT POC GLUCOSE Routine 03/24/2025 7:10 AM CDT DIFFERENTIAL, MANUAL Routine 03/24/2025 4:30 AM CDT COMPREHENSIVE METABOLIC PANEL Routine 03/24/2025 4:30 AM CDT CBC WITH DIFFERENTIAL Routine 03/24/2025 4:30 AM CDT POC GLUCOSE Routine 03/23/2025 8:29 PM CDT POC GLUCOSE Routine 03/23/2025 5:15 PM CDT POC GLUCOSE Routine 03/23/2025 11:39 AM CDT POC GLUCOSE Routine 03/23/2025 10:36 AM CDT POC GLUCOSE Routine 03/23/2025 7:04 AM CDT POC GLUCOSE Routine 03/23/2025 4:09 AM CDT DIFFERENTIAL, MANUAL Routine 03/23/2025 1:53 AM CDT CBC WITH DIFFERENTIAL Routine 03/23/2025 1:53 AM CDT BASIC METABOLIC PANEL Routine 03/23/2025 1:53 AM CDT TROPONIN 6 HR, 5TH GEN Timed Study 03/23/2025 1:53 AM CDT POC GLUCOSE Routine 03/22/2025 11:33 PM CDT POC GLUCOSE Routine 03/22/2025 8:58 PM CDT TROPONIN 2 HR, 5TH GEN Timed Study 03/22/2025 8:20 PM CDT XR CHEST PA OR AP 1 VW Stat 03/22/2025 6:55 PM CDT TROPONIN BASELINE, 5TH GEN Stat 03/22/2025 6:32 PM CDT EKG 12-LEAD Stat 03/22/2025 6:29 PM CDT POC GLUCOSE Routine 03/22/2025 4:43 PM CDT POC GLUCOSE Routine 03/22/2025 11:17 AM CDT POC GLUCOSE Routine 03/22/2025 7:04 AM CDT DIFFERENTIAL, MANUAL Routine 03/22/2025 2:13 AM CDT BASIC METABOLIC PANEL Routine 03/22/2025 2:13 AM CDT CBC WITH DIFFERENTIAL Routine 03/22/2025 2:13 AM CDT POC GLUCOSE Routine 03/22/2025 1:39 AM CDT POC GLUCOSE Routine 03/21/2025 7:31 PM CDT POC GLUCOSE Routine 03/21/2025 4:17 PM CDT POC GLUCOSE Routine 03/21/2025 11:49 AM CDT POC GLUCOSE Routine 03/21/2025 7:15 AM CDT CBC WITH DIFFERENTIAL Routine 03/21/2025 4:00 AM CDT POC GLUCOSE Routine 03/21/2025 3:59 AM CDT POC GLUCOSE Routine 03/20/2025 8:14 PM CDT POC GLUCOSE Routine 03/20/2025 5:07 PM CDT POC GLUCOSE Routine 03/20/2025 4:23 PM CDT POC GLUCOSE Routine 03/20/2025 2:46 PM CDT POC GLUCOSE Routine 03/20/2025 2:00 PM CDT POC GLUCOSE Routine 03/20/2025 1:06 PM CDT POC GLUCOSE Routine 03/20/2025 12:05 PM CDT POC GLUCOSE Routine 03/20/2025 11:03 AM CDT POC GLUCOSE Routine 03/20/2025 10:03 AM CDT POC GLUCOSE Routine 03/20/2025 9:08 AM CDT POC GLUCOSE Routine 03/20/2025 8:04 AM CDT BASIC METABOLIC PANEL Routine 03/20/2025 7:00 AM CDT POC GLUCOSE Routine 03/20/2025 6:59 AM CDT POC GLUCOSE Routine 03/20/2025 6:08 AM CDT POC GLUCOSE Routine 03/20/2025 5:13 AM CDT CBC WITH DIFFERENTIAL Routine 03/20/2025 4:25 AM CDT POC GLUCOSE Routine 03/20/2025 4:23 AM CDT POC GLUCOSE Routine 03/20/2025 3:23 AM CDT POC GLUCOSE Routine 03/20/2025 2:10 AM CDT POC GLUCOSE Routine 03/20/2025 1:01 AM CDT POC GLUCOSE Routine 03/20/2025 12:01 AM CDT POC GLUCOSE Routine 03/19/2025 11:16 PM CDT POC GLUCOSE Routine 03/19/2025 10:12 PM CDT POC GLUCOSE Routine 03/19/2025 8:57 PM CDT POC GLUCOSE Routine 03/19/2025 8:09 PM CDT POC GLUCOSE Routine 03/19/2025 6:58 PM CDT POC GLUCOSE Routine 03/19/2025 6:02 PM CDT POC GLUCOSE Routine 03/19/2025 5:27 PM CDT POC GLUCOSE Routine 03/19/2025 4:01 PM CDT POC GLUCOSE Routine 03/19/2025 3:06 PM CDT POC GLUCOSE Routine 03/19/2025 2:10 PM CDT POC GLUCOSE Routine 03/19/2025 1:02 PM CDT POC GLUCOSE Routine 03/19/2025 12:03 PM CDT POC GLUCOSE Routine 03/19/2025 11:02 AM CDT POC GLUCOSE Routine 03/19/2025 10:08 AM CDT POC GLUCOSE Routine 03/19/2025 9:03 AM CDT POC GLUCOSE Routine 03/19/2025 8:03 AM CDT POC GLUCOSE Routine 03/19/2025 7:04 AM CDT POC GLUCOSE Routine 03/19/2025 6:04 AM CDT POC GLUCOSE Routine 03/19/2025 5:07 AM CDT BASIC METABOLIC PANEL Routine 03/19/2025 4:35 AM CDT CBC WITH DIFFERENTIAL Routine 03/19/2025 4:35 AM CDT POC GLUCOSE Routine 03/19/2025 4:12 AM CDT POC GLUCOSE Routine 03/19/2025 3:28 AM CDT XR ABDOMEN FOR FEEDING TUBE 1 VW Stat 03/19/2025 3:27 AM CDT POC GLUCOSE Routine 03/19/2025 2:26 AM CDT POC GLUCOSE Routine 03/19/2025 1:37 AM CDT POC GLUCOSE Routine 03/19/2025 12:06 AM CDT POC GLUCOSE Routine 03/18/2025 11:03 PM CDT POC GLUCOSE Routine 03/18/2025 10:06 PM CDT POC GLUCOSE Routine 03/18/2025 9:04 PM CDT POC GLUCOSE Routine 03/18/2025 8:23 PM CDT POC GLUCOSE Routine 03/18/2025 7:27 PM CDT POC GLUCOSE Routine 03/18/2025 6:12 PM CDT POC GLUCOSE Routine 03/18/2025 5:15 PM CDT POC GLUCOSE Routine 03/18/2025 4:07 PM CDT POC GLUCOSE Routine 03/18/2025 3:13 PM CDT POC GLUCOSE Routine 03/18/2025 2:07 PM CDT POC GLUCOSE Routine 03/18/2025 1:13 PM CDT POC GLUCOSE Routine 03/18/2025 12:33 PM CDT POC GLUCOSE Routine 03/18/2025 11:10 AM CDT POC GLUCOSE Routine 03/18/2025 10:09 AM CDT POC GLUCOSE Routine 03/18/2025 9:12 AM CDT POC GLUCOSE Routine 03/18/2025 8:12 AM CDT POC GLUCOSE Routine 03/18/2025 7:07 AM CDT POC GLUCOSE Routine 03/18/2025 6:04 AM CDT BASIC METABOLIC PANEL Routine 03/18/2025 5:07 AM CDT CBC WITH DIFFERENTIAL Routine 03/18/2025 5:07 AM CDT POC GLUCOSE Routine 03/18/2025 5:05 AM CDT POC GLUCOSE Routine 03/18/2025 4:04 AM CDT POC GLUCOSE Routine 03/18/2025 3:00 AM CDT POC GLUCOSE Routine 03/18/2025 2:11 AM CDT POC GLUCOSE Routine 03/18/2025 1:02 AM CDT POC GLUCOSE Routine 03/18/2025 12:02 AM CDT POC GLUCOSE Routine 03/17/2025 11:02 PM CDT POC GLUCOSE Routine 03/17/2025 10:10 PM CDT POC GLUCOSE Routine 03/17/2025 9:13 PM CDT POC GLUCOSE Routine 03/17/2025 8:20 PM CDT POC GLUCOSE Routine 03/17/2025 7:05 PM CDT POC GLUCOSE Routine 03/17/2025 6:04 PM CDT POC GLUCOSE Routine 03/17/2025 5:05 PM CDT BASIC METABOLIC PANEL Routine 03/17/2025 4:42 PM CDT POC GLUCOSE Routine 03/17/2025 4:02 PM CDT POC GLUCOSE Routine 03/17/2025 2:58 PM CDT PHOSPHORUS Routine 03/17/2025 2:58 PM CDT MAGNESIUM LEVEL Routine 03/17/2025 2:58 PM CDT POC GLUCOSE Routine 03/17/2025 2:38 PM CDT EKG 12-LEAD Stat 03/17/2025 2:26 PM CDT POC GLUCOSE Routine 03/17/2025 11:57 AM CDT XR ABDOMEN FOR FEEDING TUBE 1 VW Stat 03/17/2025 9:56 AM CDT HEMOGLOBIN A1C Routine 03/17/2025 8:00 AM CDT COMPREHENSIVE METABOLIC PANEL Routine 03/17/2025 8:00 AM CDT CBC WITH DIFFERENTIAL Routine 03/17/2025 8:00 AM CDT POC GLUCOSE Routine 03/17/2025 7:58 AM CDT POC GLUCOSE Routine 03/16/2025 9:03 PM CDT POC GLUCOSE Routine 03/16/2025 4:55 PM CDT BLOOD GAS ARTERIAL Routine 03/16/2025 4: 15 PM CDT Unable to walk XR CHEST PA OR AP 1 VW Stat 03/16/2025 4:01 PM CDT [place] I&D DEEP ABSC/HMTMA SOFT TISSUE NECK/THORAX 03/16/2025 2:03 PM CDT [place] ANES INSERT ENDOTRACHEAL AIRWAY Routine 03/16/2025 1:46 PM CDT POC GLUCOSE Routine 03/16/2025 1:27 PM CDT POC GLUCOSE Routine 03/16/2025 11:51 AM CDT POC GLUCOSE Routine 03/16/2025 7:09 AM CDT POC GLUCOSE Routine 03/15/2025 9:44 PM CDT POC GLUCOSE Routine 03/15/2025 4:46 PM CDT XR CERVICAL SPINE 2 OR 3 VIEWS Routine 03/15/2025 2:15 PM CDT POC GLUCOSE Routine 03/15/2025 11:34 AM CDT POC GLUCOSE Routine 03/15/2025 7:09 AM CDT BASIC METABOLIC PANEL Routine 03/15/2025 1:10 AM CDT CBC WITH DIFFERENTIAL Routine 03/15/2025 1:10 AM CDT POC GLUCOSE Routine 03/14/2025 9:09 PM CDT POC GLUCOSE Routine 03/14/2025 6:12 PM CDT XR FLUORO LESS THAN 1 HOUR Routine 03/14/2025 5:47 PM CDT XR CERVICAL SPINE 1 VW Routine 03/14/2025 5:46 PM CDT [place] ANES INSERT ENDOTRACHEAL AIRWAY Routine 03/14/2025 3:26 PM CDT INTRAOP NEUROPHYSIO MONITORING Routine 03/14/2025 2:43 PM CDT CERVICAL DISCECTOMY FUSION ANTERIOR - 1 LEVEL 03/14/2025 2:05 PM CDT POC GLUCOSE Routine 03/14/2025 11:24 AM CDT PTT Routine 03/14/2025 9:44 AM CDT PROTIME-INR Routine 03/14/2025 9:44 AM CDT POC GLUCOSE Routine 03/14/2025 7:25 AM CDT POC GLUCOSE Routine 03/14/2025 5:01 AM CDT COMPREHENSIVE METABOLIC PANEL Routine 03/14/2025 1:03 AM CDT CBC WITH DIFFERENTIAL Routine 03/14/2025 1:03 AM CDT POC GLUCOSE Routine 03/14/2025 12:05 AM CDT POC GLUCOSE Routine 03/13/2025 4:45 PM CDT ECHOCARDIOGRAM W/ CONTRAST AGENT Pending Discharge 03/13/2025 3:12 PM CDT POC GLUCOSE Routine 03/13/2025 1:32 PM CDT POC GLUCOSE Routine 03/13/2025 11:33 AM CDT POC GLUCOSE Routine 03/13/2025 7:15 AM CDT PHOSPHORUS Routine 03/13/2025 5:49 AM CDT MAGNESIUM LEVEL Routine 03/13/2025 5:49 AM CDT COMPREHENSIVE METABOLIC PANEL Routine 03/13/2025 5:49 AM CDT POC GLUCOSE Routine 03/12/2025 9:25 PM CDT POC GLUCOSE Routine 03/12/2025 5:55 PM CDT MRI LUMBAR W WO CONTRAST Routine 03/12/2025 5:17 PM CDT MRI CERVICAL W WO CONTRAST Routine 03/12/2025 5:16 PM CDT EKG 12-LEAD Stat 03/12/2025 12:45 PM CDT POC GLUCOSE Routine 03/12/2025 11:10 AM CDT POC GLUCOSE Routine 03/12/2025 7:20 AM CDT POC GLUCOSE Routine 03/12/2025 12:53 AM CDT EXTRA TUBE (URINE MILLER) Stat 03/11/2025 9:46 PM CDT URINALYSIS W/REFLEX MICROSCOPIC Stat 03/11/2025 9:46 PM CDT CTA CHEST W AND/OR WO CONTRAST Stat 03/11/2025 7:[address] LUMBAR SPINE WO CONTRAST Stat 03/11/2025 7:[address] CERVICAL SPINE WO CONTRAST Stat 03/11/2025 7:58 PM CDT T4 FREE Routine 03/11/2025 5:58 PM CDT TSH Stat 03/11/2025 5:58 PM CDT C-REACTIVE PROTEIN Stat 03/11/2025 5: 58 PM CDT TROPONIN 2 HR, 5TH GEN Timed Study 03/11/2025 5:58 PM CDT XR CHEST PA OR AP 1 VW Stat 03/11/2025 3:50 PM CDT SEDIMENTATION RATE Stat 03/11/2025 3: 28 PM CDT LIPASE Stat 03/11/2025 3:28 PM CDT TROPONIN BASELINE, 5TH GEN Stat 03/11/2025 3:28 PM CDT MAGNESIUM LEVEL Stat 03/11/2025 3:28 PM CDT COMPREHENSIVE METABOLIC PANEL Stat 03/11/2025 3:28 PM CDT CBC WITH DIFFERENTIAL Stat 03/11/2025 3:28 PM CDT EKG 12-LEAD Stat 03/11/2025 1:39 PM CDT MICROALBUMIN/CREATINI NE RATIO, RANDOM UR Routine 08/09/2021 10:51 AM JUDICIAL REGISTRAR Type 2 diabetes mellitus with other specified complication, without long-term current use of insulin ([facility]) LIPID PANEL Routine 08/09/2021 10:51 AM JUDICIAL REGISTRAR Hypertension, unspecified type US ABDOMEN COMPLETE Routine 11/16/2007 7 :55 AM CDT from Last 3 Months or Most Recently Relevant to Health Maintenance Results * (ABNORMAL) POC GLUCOSE (03/27/2025 11:34 AM CDT) Only the most recent of135 resultswithin the time period is included. GLUCOSE POC 331(H) 74 - 99 mg/dL 03/27/2025 11:34 AM CDT [facility] SPECIMEN SOURCE, GLUCOSE POC Whole Blood 03/27/2025 11:34 AM CDT [facility] Blood, whole 03/27/2025 11:3 4 AM CDT 03/27/2025 11:45 AM CDT us Tramaine Andrade Jr., MD POINT OF CARE OLENA TING Final Result [facility] CLIA# [id number] [address] [place] [address], * TELEMETRY REPORT (03/24/2025 2:52 PM CDT) us Provider Scanning ECG ORDERABLES Final Result * (ABNORMAL) MANUAL DIFFERENTIAL (03/24/2025 4:30 AM CDT) Only the most recent of3 resultswithin the time period is included. [facility] SEGMENTED NEUTROPHILS 67 42 - 75 % 03/24/2025 9:23 AM CDT [facility] LYMPHOCYTES RELATIVE 16(L) 24 - 44 % 03/24/2025 9:23 AM CDT [facility] ATYPICAL LYMPHOCYTES RELATIVE 2(H) <=1 % 03/24/2025 9:23 AM CDT [facility] MONOCYTES RELATIVE 3 2 - 10 % 2024 9:23 AM CDT [facility] EOSINOPHILS RELATIVE 4 0 - 7 % 03/24/2025 9:23 AM CDT [facility] METAMYELOCYTES RELATIVE 2(H) 0 - 1 % 03/24/2025 9:23 AM CDT [facility] MYELOCYTES - REL (DIFF) 6(H) 0 - 1 % 03/24/2025 9:23 AM CDT [facility] NEUTROPHILS ABSOLUTE COUNT 6.83 2.00 - 8.00 K/uL 03/24/2025 9:23 AM T [facility] LYMPHOCYTES ABSOLUTE 1.63 1.20 - 4.00 K/uL 03/24/2025 9:23 AM T [facility] MONOCYTES ABSOLUTE 0.31 0.10 - 0.60 K/uL 03/24/2025 9:23 AM CDT [facility] EOSINOPHILS ABSOLUTE 0.41 0.00 - 0.70 K/uL 03/24/2025 9:23 AM [facility] TOTAL CELLS COUNTED IN DIFF 100 03/24/2025 9:23 AM T [facility] PLATELET EST. Adequate 03/24/2025 9:23 AM [facility] RBC MORPHOLOGY Normal 03/24/2025 9:23 AM T [facility] Blood BLOOD SPECIMEN / Unknown Venipuncture / Unknown 03/24/2025 4:30 AM CDT 03/24/2025 8:07 AM CDT us Tramaine Andrade Jr., MD HEMATOLOGY ORDERA BLES COM Final Result [facility] #[id number] [address] [place] [address] * (ABNORMAL) CBC WITH DIFFERENTIAL (03/24/2025 4:30 AM CDT) Only the most recent of11 resultswithin the time period is included. WBC 10.2 4.8 - 10.8 K/uL 03/24/2025 9:23 AM CDT [facility] RBC 4.62 4.60 - 6.20 M/uL 03/24/2025 9:23 AM CDT [facility] HEMOGLOBIN 13.9(L) 14.0 - 18.0 g/dL 03/24/2025 9:23 AM CDT [facility] HEMATOCRIT 40.4(L) 41.0 - 53.0 % 03/24/2025 9:23 AM CDT [facility] MCV 87.4 84.0 - 103.0 fL 03/24/2025 9:23 AM CDT [facility] MCH 30.1(L) 31.0 - 37.0 pg 03/24/2025 9:23 AM CDT [facility] MCHC 34.4 30.0 - 35.0 g/dL 03/24/2025 9:23 AM CDT [facility] RDW 12.7 11.0 - 14.5 % 03/24/2025 9:23 AM CDT [facility] RDW-STDEV 40.2 37.0 - 54.0 fL 03/24/2025 9:23 AM T [facility] PLATELETS 249 140 - 440 K/uL 03/24/2025 9:23 AM T [facility] MPV 11.4 8.9 - 12.8 fL 03/24/2025 9:23 AM [facility] Blood BLOOD SPECIMEN / Unknown Venipuncture / Unknown 03/24/2025 4:30 AM CDT 03/24/2025 8:07 AM CDT us Tramaine Andrade Jr., MD HEMATOLOGY ORDERA BLES Final Result [facility] CLIA #[id number] [facility] [place], [place] [address] * (ABNORMAL) COMPREHENSIVE METABOLIC PANEL (03/24/2025 4:30 AM CDT) Only the most recent of5 resultswithin the time period is included. SODIUM 134(L) 136 - 145 mmol/L 03/24/2025 8:43 AM [facility] POTASSIUM 4.1 3.4 - 4.5 mmol/L 03/24/2025 8:43 AM [facility] CHLORIDE 97(L) 98 - 107 mmol/L 03/24/2025 8:43 AM [facility] CO2 26 22 - 29 mmol/L 03/24/2025 8:43 AM [facility] CALCIUM 8.3(L) 8.6 - 10.0 mg/dL 03/24/2025 8:43 AM [facility] BUN 24(H) 8 - 23 mg/dL 03/24/2025 8:43 AM [facility] CREATININE 0.70 0.67 - 1.17 mg/dL 03/24/2025 8:43 AM [facility] GLUCOSE 144(H) 74 - 99 mg/dL 03/24/2025 8:43 AM [facility] Comment:Reference range appl ies to fasting patients only. TOTAL PROTEIN 6.1(L) 6.6 - 8.7 g/dL 03/24/2025 8:43 AM [facility] ALBUMIN 3.5(L) 4.0 - 4.9 g/dL 03/24/2025 8:43 AM [facility] BILIRUBIN TOTAL 0.9 0.0 - 1.0 mg/dL 03/24/2025 8:43 AM [facility] ALKALINE PHOSPHATASE 85 40 - 129 U/L 03/24/2025 8:43 AM [facility] AST 31 5 - 40 U/L 03/24/2025 8:43 AM [facility] ALT 77(H) 5 - 41 U/L 03/24/2025 8:43 AM [facility] GFR >60 >=60 mL/min/1.7 3 sq meter 03/24/2025 8:43 AM CDT [facility] Comment:eGFR calculated with 2020 CKD-EPI equation. Vegetarian diet, extremely high or low muscle mass, and may affect results. Cystatin C with Glomerular Filtration Rate is a suitable alternative for these patients. ANION GAP 11 9 - 20 mmol/L 03/24/2025 8:43 AM CDT [facility] Blood BLOOD SPECIMEN / Unknown Venipuncture / Unknown 03/24/2025 4:30 AM CDT 03/24/2025 8:07 AM CDT us Tramaine Andrade Jr., MD CHEMISTRY ORDERAB LES Final Result Performing Organization Address [facility]/ZIP Co de Phone Number [facility] CLIA #[id number] [address] [place], [place] [address] * (ABNORMAL) TROPONIN 6 HR, 5TH GEN (03/23/2025 1:53 AM CDT) TROPONIN T, 6 HR 5TH GEN 21(H) <=15 ng/L 03/23/2025 2:32 AM CDT [facility] DELTA 6HR TROPONIN T -5 See Interp. 03/23/2025 2:32 AM CDT [facility] Blood Venipuncture / Unknown 03/23/2025 1:53 AM CDT 03/23/2025 2:01 AM CDT Narrative [facility] - 03/23/2025 2:32 AM CDT Troponin elevated. Delta indeterminate. Delay in collection of timed specimen beyond recommended collection interval. Results must be interpreted in clinical context. us Reanna Bernardo MD CHEMISTRY ORDERABLES Final Resu lt Performing Organization Address [facility]/ZIP Co de Phone Number [facility] CLIA # [id number] [address] [facility] [place], [place] [address] * (ABNORMAL) BASIC METABOLIC PANEL (03/23/2025 1:53 AM CDT) Only the most recent of7 resultswithin the time period is included. SODIUM 135(L) 136 - 145 mmol/L 03/23/2025 2:35 AM T [facility] POTASSIUM 4.5 3.5 - 5.1 mmol/L 03/23/2025 2:35 AM CDT [facility] CHLORIDE 96(L) 98 - 107 mmol/L 03/23/2025 2:35 AM CDT [facility] CO2 31(H) 22 - 29 mmol/L 03/23/2025 2:35 AM CDT [facility] CALCIUM 8.4(L) 8.8 - 10.2 mg/dL 03/23/2025 2:35 AM CDT [facility] BUN 33(H) 8 - 23 mg/dL 03/23/2025 2:35 AM T [facility] CREATININE 0.90 0.67 - 1.17 mg/dL 03/23/2025 2:35 AM T [facility] GLUCOSE 212(H) 74 - 99 mg/dL 03/23/2025 2:35 AM T [facility] GFR >60 >=60 mL/min/1.7 3 sq meter 03/23/2025 2:35 AM T [facility] Comment:eGFR calculated with 2020 CKD-EPI equation. Vegetarian diet, extremely high or low muscle mass, and may affect results. Cystatin C with Glomerular Filtration Rate is a suitable alternative for these patients. ANION GAP 8(L) 9 - 20 mmol/L 03/23/2025 2:35 AM T [facility] Blood Venipuncture / Unknown 03/23/2025 1:53 AM CDT 03/23/2025 2:01 AM CDT us Reanna Bernardo MD CHEMISTRY ORDERABLES Final Resu lt [facility] CLIA # [id number] [address] [facility] [place] [address] * (ABNORMAL) TROPONIN 2 HR, 5TH GEN (03/22/2025 8:20 PM CDT) Only the most recent of2 resultswithin the time period is included. TROPONIN T, 2 HR 5TH GEN 24(H) <=15 ng/L 03/22/2025 9:17 PM CDT [facility] DELTA 2HR TROPONIN T -2 See Interp. 03/22/2025 9:17 PM CDT [facility] Blood Venipuncture / Unknown 03/22/2025 8:20 PM CDT 03/22/2025 8:46 PM CDT Narrative [facility] - 03/22/2025 9:17 PM CDT Troponin elevated. Delta not changing. us Reanna Bernardo MD CHEMISTRY ORDERABLES Final Resu lt [facility] CLIA # [id number] [address] [facility] [place] [address] * XR CHEST PA OR AP 1 VW (03/22/2025 6:55 PM CDT) Only the most recent of3 resultswithin the time period is included. Anatomical Region Laterality Modality Chest Computed Radiogr aphy 03/22/2025 6:55 PM CDT Impressions 03/22/2025 7:13 PM CDT IMPRESSION: See below. EXAMINATION: XR CHEST PA OR AP 1 VW CLINICAL HISTORY: ASSOCIATED DIAGNOSIS: Other - Please see comments, Comment: acute chest pain ORDERING PROVIDER: REANNA BERNARDO TECHNOLOGISTS NOTE: COMPARISON: March 16, 2025 FINDINGS/IMPRESSION: Lines, tubes, and devices: None. CABG. Heart is enlarged. Bibasilar atelectasis. No effusion. No pneumothorax. Postsurgical changes from ACDF. Numerous surgical clips overlie the paracervical soft tissues as well Narrative Procedure Note Naga Mccoy MD - 03/22/2025 IMPRESSION: See below. EXAMINATION: XR CHEST PA OR AP 1 VW CLINICAL HISTORY: ASSOCIATED DIAGNOSIS: Other - Please see comments, Comment: acute chest pain ORDERING PROVIDER: REANNA BERNARDO TECHNOLOGISTS NOTE: COMPARISON: March 16, 2025 FINDINGS/IMPRESSION: Lines, tubes, and devices: None. CABG. Heart is enlarged. Bibasilar atelectasis. No effusion. No pneumothorax. Postsurgical changes from ACDF. Numerous surgical clips overlie the paracervical soft tissues as well us Reanna Bernardo MD DIAGNOSTIC IMAGING ORDERABLES F inal Result * (ABNORMAL) TROPONIN BASELINE, 5TH GEN (03/22/2025 6:32 PM CDT) Only the most recent of2 resultswithin the time period is included. TROPONIN T, BASELINE 5TH GEN 26(H) <=15 ng/L 03/22/2025 7:17 PM CDT [facility] Blood Venipuncture / Unknown 03/22/2025 6:32 PM CDT 03/22/2025 6:45 PM CDT Narrative [facility] - 03/22/2025 7:17 PM CDT Troponin elevated. us Reanna Bernardo MD CHEMISTRY ORDERABLES Final Resu lt [facility] CLIA # [id number] [address] [facility] [place] [address] * EKG 12-LEAD (03/22/2025 6:29 PM CDT) Only the most recent of4 resultswithin the time period is included. 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: [id number] : 1960 Requested By: Order Number: [id number] Reading : Primitivo Stokes Measurements Intervals [place] Rate: 78 P: 22 [place]: 158 QRS: 88 QRSD: 84 T: 39 QT: 382 QTc: 435 Interpretive Statements Normal sinus rhythm Septal infarct, age undetermined Abnormal ECG Electronically Signed On 03-23-2025 6:36:32 CDT by Primitivo Stokes Procedure Note Primitivo Stokes MD - 03/23/[address] [address] Test Date: 2025-03-22 Pat Name: HUDSON GRIFFIN Department: 12 Room: [address] [place] [address] Gender: Male 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 Technician: [id number] : 1960 Requested By: Order Number: [id number] Reading MD: Primitivo Stokes Measurements Intervals [place] Rate: 78 P: 22 [place]: 158 QRS: 88 QRSD: 84 T: 39 QT: 382 QTc: 435 Interpretive Statements Normal sinus rhythm Septal infarct, age undetermined Abnormal ECG Electronically Signed On 03-23-2025 6:36:32 CDT by Primitivo Stokes Reanna Bernardo MD ECG ORDERABLES Final Result Performing Organization Address City/State/[facility] Co de Phone Number INTERFACE SYSTEM Refer to clinic/hospital department * XR ABDOMEN FOR FEEDING TUBE 1 VW (03/19/2025 3:27 AM CDT) Only the most recent of2 resultswithin the time period is included. Anatomical Region Laterality Modality Abdomen Computed Radiogr aphy 03/19/2025 3:02 AM CDT Impressions 03/19/2025 7:57 AM CDT IMPRESSION: See below. Exam: XR ABDOMEN FOR FEEDING TUBE 1 VW Date/Time of Exam: 03/19/2025 3:27 AM Reason For Exam: Check Tube Placement. Diagnosis: Unable to walk; Unable to care for self; Neck pain; Chronic low back pain, unspecified back pain laterality, unspecified whether sciatica present; Chronic low back pain, unspecified back pain laterality, unspecified whether sciatica present; Chest pain, unspecified type. Findings: Comparison: 03/17/2025 The lung bases are clear. Bowel gas pattern is nonobstructive. Normal amount of colonic stool. No acute osseous abnormality. No concerning calcifications. Nasogastric tip overlies the gastric body. IMPRESSION: 1. Nasogastric tube tip overlies gastric body. Narrative Procedure Note Cristhian Valdovinos MD - 03/19/2025 IMPRESSION: See below. Exam: XR ABDOMEN FOR FEEDING TUBE 1 VW Date/Time of Exam: 03/19/2025 3:27 AM Reason For Exam: Check Tube Placement. Diagnosis: Unable to walk; Unable to care for self; Neck pain; Chronic low back pain, unspecified back pain laterality, unspecified whether sciatica present; Chronic low back pain, unspecified back pain laterality, unspecified whether sciatica present; Chest pain, unspecified type. Findings: Comparison: 03/17/2025 The lung bases are clear. Bowel gas pattern is nonobstructive. Normal amount of colonic stool. No acute osseous abnormality. No concerning calcifications. Nasogastric tip overlies the gastric body. IMPRESSION: 1. Nasogastric tube tip overlies gastric body. Cheko Ramos DO DIAGNOSTIC IMAGING ORDERABLES Fi nal Result * PHOSPHORUS (03/17/2025 2:58 PM CDT) Only the most recent of2 resultswithin the time period is included. PHOSPHORUS 3.0 2.5 - 4.5 mg/dL 03/17/2025 4:25 PM CDT [facility] Blood Venipuncture / Unknown 03/17/2025 2:58 PM CDT 03/17/2025 3:04 PM CDT Silvia Sheffield MD CHEMISTRY ORDERABLES Maci l Result [facility] CLIA # [id number] [address] [address] [place] [address] * MAGNESIUM LEVEL (03/17/2025 2:58 PM CDT) Only the most recent of3 resultswithin the time period is included. Pathologist [facility] MAGNESIUM 2.1 1.6 - 2.4 mg/dL 03/17/2025 3:32 PM CDT [facility] Blood Venipuncture / Unknown 03/17/2025 2:58 PM CDT 03/17/2025 3:04 PM CDT Ju Lazo [employer]WOR[employer]SEMBL[employer] SUPERVISOR CHEMISTRY ORDERABLES Final R esult [facility] CLIA # [id number] [address] [id number] * (ABNORMAL) HEMOGLOBIN A1C (03/17/2025 8:00 AM CDT) [facility] HEMOGLOBIN A1C 9.6(H) <=5.6 % 03/18/2025 11:25 AM CDT [facility] EST. AVG GLUCOSE, A1C 229 mg/dL 03/18/2025 11:25 AM CDT [facility] Blood Venipuncture / Unknown 03/17/2025 8:00 AM CDT 03/17/2025 8:16 AM CDT Narrative [facility] - 03/18/2025 11:25 AM CDT HGB A1C INTERPRETATION NORMAL: <5.7% PRE-DIABETES: 5.7 - 6.4% DIABETES: 6.5% OR GREATER Ju Lazo [employer]REWOR[employer] ASSEMBLY SUPERVISOR CHEMISTRY ORDERABLES Final R esult Performing Organization Address City/[facility] Co de Phone Number [facility] CLIA # [id number] [address] [id number] * (ABNORMAL) BLOOD GAS ARTERIAL (03/16/2025 4:15 PM CDT) [facility] PH BLOOD POC 7.50(H) 7.35 - 7.45 03/16/2025 4:15 PM [facility] PCO2 POC 38 35 - 45 mm Hg 03/16/2025 4:15 PM [facility] PO2 POC 85 80 - 105 mm Hg 03/16/2025 4:15 PM [facility] HCO3 (CALC) POC 30(H) 22 - 26 mmol/L 03/16/2025 4:15 PM [facility] HEMOGLOBIN POC 15.0 12.0 - 18.0 g/dL 03/16/2025 4:15 PM [facility] BASE EXCESS POC 6(H) -2 - 3 mmol/L 03/16/2025 4:15 PM [facility] O2 SATURATION POC 99(H) 95 - 98 % 025 4:15 PM [facility] SODIUM POC 132(L) 138 - 146 mmol/L 03/16/2025 4:15 PM [facility] POTASSIUM POC 3.6 3.5 - 4.9 mmol/L 03/16/2025 4:15 PM [facility] HEMATOCRIT POC 45 38 - 51 % 03/16/2025 4:15 PM [facility] PH TEMP CORRECT 7.50(H) 7.35 - 7.45 03/16/2025 4:15 PM [facility] PCO2 TEMP CORRECT 38 35 - 45 mm Hg 03/16/2025 4:15 PM [facility] PO2 TEMP CORRECT 85 80 - 105 mm Hg 03/16/2025 4:15 PM [facility] SPECIMEN SOURCE, GASES POC Arterial 03/16/2025 4:15 PM [facility] CALCIUM IONIZED POC 4.3(L) 4.8 - 5.2 mg/dL 03/16/2025 4:15 PM [facility] TCO2 (CALC) POC 31(H) 23 - 27 mmol/L 03/16/2025 4:15 PM [facility] FIO2 30.0 21.0 - 100.0 % 03/16/2025 4:15 PM CDT [facility] Comment:FIO2 values reported <21.0 indicate O2 flow in Liters/minute. Values >/= 21.0 indicate percent O2. P/F RATIO POC 283 03/16/2025 4:15 PM CDT [facility] Comment: P/F Ratio Interpretation ARDS SEVERITY PaO2/FiO2 Mild 200-300 Moderate 100-200 Severe <100 PEEP POC 6 03/16/2025 4:15 PM CDT [facility] PUNC SITE POC ART PUNCT 03/16/2025 4:15 PM CDT [facility] VENT MODE POC PRVC 03/16/2025 4:15 PM CDT [facility] Blood, arterial 03/16/2025 4 :15 PM CDT 03/16/2025 4:18 PM CDT us Silvia Sheffield MD ABG ORDERABLES Final Res ult [facility] CLIA # [id number] [address] [place] [address] * [place] ANES INSERT ENDOTRACHEAL AIRWAY (03/16/2025 1:46 PM CDT) Narrative Avis Morse CRNA - 03/16/2025 1:46 PM CDT Avis Morse CRNA 03/16/2025 2:08 PM Airway Date/Time: 03/16/2025 1:46 PM Location: OR Plan: emergent intubation Patient Identity Confirmed by: Verbally with patient and armband Airway: Difficult Staffing Performed: FORREST/CAA Authorized by: Tramaine Brar MD Performed by: Avis Morse CRNA Indications and Patient Condition: Indications for Airway Management: Anesthesia and airway protection Sedation Level: general anesthesia Preoxygenated: yes Patient Position: Sniffing Mask Difficulty Assessment: 0 - not attempted Planned Trial Extubation: No Final Airway Details: Final Airway Type: Endotracheal airway ETT Cuffed: Yes Cuff Volume (mL): 6 Technique Used for Successful ETT Placement: Video laryngoscopy Devices/Methods Used in Placement: Intubating stylet and rapid sequence intubations/RSI Blade Size: 3 ETT Size (mm): 7.5 Video Laryngoscopy Devices: GlideScope Measured from: Teeth ETT to Teeth (cm): 22 Placement Verified by: auscultation, end tidal CO2 and chest rise Cormack-Lehane Classification: Grade I - full view of glottis Number of Attempts at Approach: 1 Additional Procedure Information: atraumatic and dentition unchanged Additional Comments: 6.0 DECKHAND initially placed then exchanged for a 7.5 ETT. us Tramaine Brar MD PROCEDURE/MINOR SURGICAL ORDER [place] Final Result * XR CERVICAL SPINE 2 OR 3 VIEWS (03/15/2025 2:15 PM CDT) Anatomical Region Laterality Modality Spine Computed Radiogr aphy 03/15/2025 2:15 PM CDT Impressions 03/15/2025 3:29 PM CDT IMPRESSION: Please see below. Exam: XR CERVICAL SPINE 2 OR 3 VIEWS Date/Time of Exam: 03/15/2025 2:15 PM Reason For Exam: Fusion. Diagnosis: Unable to walk; Unable to care for self; Neck pain; Chronic low back pain, unspecified back pain laterality, unspecified whether sciatica present; Chronic low back pain, unspecified back pain laterality, unspecified whether sciatica present; Chest pain, unspecified type. Findings: Comparison 11/06/2021. The study was performed with the patient upright. There are postsurgical changes of median sternotomy. There are multiple surgical clips in the neck and upper chest. There is mild osteopenia. There is slight anterolisthesis of C2 on C3 unchanged from the comparison. No other abnormality of alignment is noted. There has been interval ACDF at C5-6. No hardware abnormality is noted. There is mild presumably postsurgical prevertebral soft tissue swelling. No fractures are noted. There is mild multilevel facet arthropathy. No lytic or blastic lesion is suspected. The lung apices are grossly clear. IMPRESSION: Postsurgical changes of ACDF at C5-6. Narrative Procedure Note Marilee Bird MD - 03/15/2025 IMPRESSION: Please see below. Exam: XR CERVICAL SPINE 2 OR 3 VIEWS Date/Time of Exam: 03/15/2025 2:15 PM Reason For Exam: Fusion. Diagnosis: Unable to walk; Unable to care for self; Neck pain; Chronic low back pain, unspecified back pain laterality, unspecified whether sciatica present; Chronic low back pain, unspecified back pain laterality, unspecified whether sciatica present; Chest pain, unspecified type. Findings: Comparison 11/06/2021. The study was performed with the patient upright. There are postsurgical changes of median sternotomy. There are multiple surgical clips in the neck and upper chest. There is mild osteopenia. There is slight anterolisthesis of C2 on C3 unchanged from the comparison. No other abnormality of alignment is noted. There has been interval ACDF at C5-6. No hardware abnormality is noted. There is mild presumably postsurgical prevertebral soft tissue swelling. No fractures are noted. There is mild multilevel facet arthropathy. No lytic or blastic lesion is suspected. The lung apices are grossly clear. IMPRESSION: Postsurgical changes of ACDF at C5-6. Roger Eisenberg MD DIAGNOSTIC IMAGING ORD ERABLES Final Result * XR FLUORO LESS THAN 1 HOUR (03/14/2025 5:47 PM CDT) Narrative 03/14/2025 5:47 PM CDT Order information only. Exam was auto-finalized. Roger Eisenberg MD DIAGNOSTIC IMAGING ORD ERABLES Final Result * XR CERVICAL SPINE 1 VW (03/14/2025 5:46 PM CDT) Anatomical Region Laterality Modality Spine Computed Radiogr aphy 03/14/2025 5:46 PM CDT Impressions 03/14/2025 6:30 PM CDT IMPRESSION: Please see below. Exam: XR CERVICAL SPINE 1 VW Date/Time of Exam: 03/14/2025 5:46 PM Reason For Exam: Other - Please see comments. Diagnosis: Unable to walk; Unable to care for self; Neck pain; Chronic low back pain, unspecified back pain laterality, unspecified whether sciatica present; Chronic low back pain, unspecified back pain laterality, unspecified whether sciatica present; Chest pain, unspecified type. Comparison: November 06, 2021 FINDINGS: Single digital spot fluoroscopic projection shows anterior cervical fusion in progress. See operative report. Narrative Procedure Note Cristhian Thompson, - 03/14/2025 IMPRESSION: Please see below. Exam: XR CERVICAL SPINE 1 VW Date/Time of Exam: 03/14/2025 5:46 PM Reason For Exam: Other - Please see comments. Diagnosis: Unable to walk; Unable to care for self; Neck pain; Chronic low back pain, unspecified back pain laterality, unspecified whether sciatica present; Chronic low back pain, unspecified back pain laterality, unspecified whether sciatica present; Chest pain, unspecified type. Comparison: November 06, 2021 FINDINGS: Single digital spot fluoroscopic projection shows anterior cervical fusion in progress. See operative report. us Roger Eisenberg MD DIAGNOSTIC IMAGING ORD ERABLES Final Result * [place] ANES INSERT ENDOTRACHEAL AIRWAY (03/14/2025 3:26 PM CDT) Narrative Meng Turner CRNA - 03/14/2025 3:26 PM CDT Meng Turner CRNA 03/14/2025 3:45 PM Airway Date/Time: 03/14/2025 3:26 PM Location: OR Plan: routine intubation Patient Identity Confirmed by: Verbally with patient and armband Staffing Performed: AIRPORT OPERATIONS COORDINATOR/CAA Authorized by: Tramaine Brar MD Performed by: Meng Turner CRNA Indications and Patient Condition: Indications for Airway Management: Anesthesia Sedation Level: general anesthesia Preoxygenated: yes Patient Position: Sniffing Mask Difficulty Assessment: 3 - difficult mask (inadequate, unstable or two providers) +/- NMBA Plan to extubate at end of case: Yes Final Airway Details: Final Airway Type: Endotracheal airway ETT Cuffed: Yes Cuff Volume (mL): 6 Technique Used for Successful ETT Placement: Video laryngoscopy Devices/Methods Used in Placement: Cricoid pressure and intubating stylet Reason for advanced technique: pre-op assessment Blade Size: 3 Insertion Site: Oral ETT Size (mm): 8.0 Video Laryngoscopy Devices: Rubio Measured from: Gums ETT to Gums (cm): 21 Tube secured with: Tape Placement Verified by: auscultation, end tidal CO2 and chest rise Cormack-Lehane Classification: Grade I - full view of glottis Number of Attempts at Approach: 1 Additional Procedure Information: atraumatic and dentition unchanged us Tramaine Brar MD PROCEDURE/MINOR SURGICAL ORDER [place] Final Result * PTT (03/14/2025 9:44 AM CDT) PTT 30.8 24.8 - 37.2 seconds 03/14/2025 10:35 AM CDT [facility] Blood Venipuncture / Unknown 03/14/2025 9:44 AM CDT 03/14/2025 10:19 AM CDT [facility] - 03/14/2025 10:35 AM CDT Therapeutic Range: Hi-level PE/DVT heparin protocol 80.1 - 95.0 sec Lo-level PE/DVT heparin protocol 70.1 - 85.0 sec Cardiac Heparin Protocol 70.1 - 100.0 sec us Roger Eisenberg MD HEMATOLOGY ORDERABLES Final Result [facility] CLIA # [id number] [address] [place] [id number] * PROTIME-INR (03/14/2025 9:44 AM CDT) PROTIME 12.9 12.7 - 14.9 Seconds 03/14/2025 10:35 AM CDT [facility] INR 0.9 0.8 - 1.2 03/14/2025 10:35 AM CDT [facility] Blood Venipuncture / Unknown 03/14/2025 9:44 AM CDT 03/14/2025 10:19 AM CDT [facility] - 03/14/2025 10:35 AM CDT Expected Values for INR: DVT/PE Goal INR 2.5; range 2.0 - 3.0 Valve Replacement Tissue Goal INR 2.5; range 2.0 - 3.0 Valve Replacement Mechanical Goal INR 3.0; range 2.5 - 3.5 POST-SD Goal INR 2.5; range 2.0 - 3.0 or Goal INR 3.0; range 2.5 - 3.5 Atrial Fibrillation Goal INR 2.5; range 2.0 - 3.0 Ischemic Stroke Goal INR 2.5; range 2.0 - 3.0 us Roger Eisenberg MD HEMATOLOGY ORDERABLES Final Result [facility]OR[facility] CLIA # [id number] [address] [id number] * ECHOCARDIOGRAM W/ CONTRAST AGENT (03/13/2025 3:12 PM CDT) EJECTION FRACTION 55 INTERFACE SYSTEM 03/13/2025 2:12 PM CDT Narrative INTERFACE SYSTEM - 03/13/2025 4:12 PM CDT [facility] Echocardiography Laboratory [address] [place] [id number] Transthoracic Echocardiography Patient: Hudson Griffin Study ID: ECHO COMPLETE - Gender: Leslie : 1960 Age: 64 Room: [facility] Study Date: 03/13/2025 Pt Status: Inpatient Study Time: 02:12:50 PM CSN #: [id number] Ordering:Tino Buckner Log Hauler: Joe Mosley [facility] Indications and History: Cardiac Etiology: General; Chest pain Summary and Conclusion: - Left ventricle: The cavity size is normal. Wall thickness is increased in a pattern of mild to moderate LVH. Global systolic function is probably normal. For Epic reporting: the left ventricular ejection fraction is 55%. Regional wall motion difficult to determine but improved with echo contrast. Interventricular septum shows abnormal bouncy motion. Diastolic function is indeterminate. - Right ventricle: Not well visualized. The cavity size is normal. Systolic function is difficult to assess and probably reduced by acoustic quantification. Systolic pressure is within the normal range. - Mitral valve: The annulus is mildly calcified. There is mild to moderate regurgitation. - Tricuspid valve: There is moderate regurgitation. Procedure information: No prior study is available for comparison. Study status: Routine. Procedure: A transthoracic echocardiogram was performed. Image quality was adequate. Scanning was performed from the parasternal, apical, subcostal, and suprasternal notch acoustic windows. Intravenous contrast (Definity) was administered. There were no complications. There were no contrast reactions. Study components: M-mode, 2D, complete spectral Doppler, and color Doppler. Height: 182.9cm. Height: 72in. Weight: 88kg. Weight: 194lb. BMI: 26.3kg/m^2. BSA: 2.13m^2. Blood pressure: 109/77 Study date: 03/13/2025. Study time: 02:12 PM. Location: Bedside. Cardiac Anatomy: LEFT VENTRICLE: The cavity size is normal. Wall thickness is increased in a pattern of mild to moderate LVH. Global systolic function is probably normal. For Epic reporting: the left ventricular ejection fraction is 55%. No diagnostic regional wall motion abnormality identified. Regional wall motion difficult to determine but improved with echo contrast. Interventricular septum shows abnormal bouncy motion. Diastolic function is indeterminate. RIGHT VENTRICLE: Not well visualized. The cavity size is normal. Systolic function is difficult to assess and probably reduced by acoustic quantification. Systolic pressure is within the normal range. LEFT ATRIUM: The atrium is at the upper limits of normal in size. RIGHT ATRIUM: Not well visualized. The atrium is normal in size. ATRIAL SEPTUM: No obvious PFO or ASD identified by 2D imaging and color Doppler. AORTIC VALVE: Not well visualized. The valve is trileaflet. The leaflets are mildly thickened. Mobility is not restricted. There is no stenosis. There is no significant regurgitation. MITRAL VALVE: The annulus is mildly calcified. Mobility is not restricted. No evidence for prolapse. There is no evidence for stenosis. There is mild to moderate regurgitation. TRICUSPID VALVE: Not well visualized. The valve appears to be grossly normal. Mobility is unrestricted. There is no evidence for stenosis. There is moderate regurgitation. PULMONIC VALVE: Not well visualized. The valve appears to be grossly normal. There is no evidence for stenosis. There is trace regurgitation. PERICARDIUM: A minimal pericardial effusion and/or fat pad was identified. AORTA: Aortic root: The root is not dilated. Measurements Left ventricle Value LVOT continued Value RUCHI, LAX 4.8 cm SV 47 ml ESD, LAX 3.2 cm Qs 9.4 L/min RUCHI/bsa, LAX 2.3 cm/m^2 Qs/bsa 4.4 L/(min-m^2) ESD/bsa, LAX 1.5 cm/m^2 SV/bsa 22 ml/m^2 FS, LAX 34 % FS, LAX chord 34 % Right ventricle Value ESD major ax, A4C 6.5 cm RUCHI, LAX 2.0 cm ESD/bsa major ax, A4C 3.1 cm/m^2 RUCHI 2.0 cm RUCHI minor ax, A4C 6.5 cm TAPSE, 2D 1.2 cm RUCHI/bsa minor ax, A4C 3.1 cm/m^2 TAPSE, MM 1.2 cm RUCHI major ax, A2C 7.7 cm S' lateral 6.4 cm/sec ESD major ax, A2C 6.1 cm RUCHI/bsa major ax, A2C 3.6 cm/m^2 Left atrium Value ESD/bsa major ax, A2C 2.9 cm/m^2 AP dim, ES 4.0 cm IVS, ED 1.2 cm AP dim index, ES 1.9 cm/m^2 ESD 3.2 cm SI dim, A4C 4.7 cm ESD/bsa 1.5 cm/m^2 Area ES, A4C 14 cm^2 FS 34 % Vol, S 46 ml PW, ED 1.2 cm Vol/bsa, S 22 ml/m^2 IVS/PW, ED 1 Vol, ES, 1-p A4C 34 ml EDV 108 ml Vol/bsa, ES, 1-p A4C 16 ml/m^2 ESV 40 ml Vol, ES, 1-p A2C 49 ml EF 63 % Vol/bsa, ES, 1-p A2C 23 ml/m^2 SV 40 ml Vol, ES, 2-p 42 ml EDV/bsa 51 ml/m^2 Vol/bsa, ES, 2-p 20 ml/m^2 ESV/bsa 19 ml/m^2 Vol, ES, A/L 37 ml SV/bsa 19 ml/m^2 Vol/bsa, ES, A/L 17 ml/m^2 EDV, 1-p A2C 82 ml ESV, 1-p A2C 51 ml Right atrium Value EF, 1-p A2C 62 % Area, ES 12 cm^2 SV, 1-p A2C 68 ml Area, ES, A4C 12 cm^2 EDV/bsa, 1-p A2C 39 ml/m^2 ESV/bsa, 1-p A2C 24 ml/m^2 Aortic valve Value SV/bsa, 1-p A2C 32.2 ml/m^2 Peak v, S 87.23 cm/sec EDV, 1-p A4C 93 ml VTI, S 17.6 cm ESV, 1-p A4C 34 ml Mean grad, S 2 mm Hg EF, 1-p A4C 64 % Peak grad, S 3 mm Hg SV, 1-p A4C 59 ml LVOT/AV, VTI ratio 0.85 EDV/bsa, 1-p A4C 44 ml/m^2 ZANDER, VTI 2.68 cm^2 ESV/bsa, 1-p A4C 16 ml/m^2 ZANDER/bsa, VTI 1.26 cm^2/m^2 SV/bsa, 1-p A4C 28 ml/m^2 LVOT/AV, Vpeak ratio 0.87 EDV, 2-p 92 ml ZANDER, Vmax 2.74 cm^2 ESV, 2-p 33 ml ZANDER/bsa, Vmax 1.29 cm^2/m^2 EF, 2-p 64 % SV, 2-p 31 ml Mitral valve Value EDV/bsa, 2-p 43 ml/m^2 Mean v, D 52.29 cm/sec ESV/bsa, 2-p 16 ml/m^2 Peak E 72.8 cm/sec SV/bsa, 2-p 14.8 ml/m^2 Peak A 61.4 cm/sec EDV, MM Teich. 108 ml Decel slope 279.89 cm/s^2 EF, MM Teich. 63 % Decel time 260 ms EDV/bsa, MM Teich. 51 ml/m^2 PHT 111 ms EF, MM on 2D Teich. 63 % Mean grad, D 1 mm Hg E', lat navi, TDI 7.5 cm/sec Peak grad, D 3 mm Hg E/e', lat navi, TDI 10 Peak E/A ratio 1.19 E', med navi, TDI 5.6 cm/sec MVA, PHT 1.98 cm^2 E/e', med navi, TDI 13 MVA/bsa, PHT 0.93 cm^2/m^2 E', avg, TDI 6.6 cm/sec Vena contracta width 2.0 cm E/e', avg, TDI 11 Tricuspid valve Value LVOT Value TR peak v 200.93 cm/sec Diam, S 2.0 cm Peak RV-RA grad, S 16 mm Hg Area 3.2 cm^2 Peak dacia, S 75.6 cm/sec Aortic root Value VTI, S 14.9 cm Root diam 3.4 cm Peak grad, S 2 mm Hg Root diam/bsa 1.6 cm/m^2 Legend: (L) and (H) nataliya values outside specified reference range. [facility] are accredited with the Intersocietal Accreditation Commission - Echocardiography. Prepared and Electronically Authenticated Gonzalo Abdalla Confirmed 03/13/2025 16:12 Procedure Note Gonzalo Abdalla MD - 03/13/[address] [facility] Echocardiography Laboratory [address] [place] [id number] Transthoracic Echocardiography Patient: Hudson Griffin Study ID: ECHOCOMPLETE - Gender: M : 1960 Age: 64 Room: [facility] Study Date: 03/13/2025 Pt Status: Inpatient Study Time: 02:12:50 PM CSN #: [id number] Ordering:Tino Buckner Log Hauler: Joe Mosley [facility] Indications and History: Cardiac Etiology: General; Chest pain Summary and Conclusion: - Left ventricle: The cavity size is normal. Wall thickness is increasedin a pattern of mild to moderate LVH. Global systolic function is probably normal. For Epic reporting: the left ventricular ejection fraction is55%. Regional wall motion difficult to determine but improved with echocontrast. Interventricular septum shows abnormal bouncy motion. Diastolic functionis indeterminate. - Right ventricle: Not well visualized. The cavity size is normal.Systolic function is difficult to assess and probably reduced by acoustic quantification. Systolic pressure is within the normal range. - Mitral valve: The annulus is mildly calcified. There is mild tomoderate regurgitation. - Tricuspid valve: There is moderate regurgitation. Procedure information: No prior study is available for comparison.Study status: Routine. Procedure: A transthoracic echocardiogram wasperformed. Image quality was adequate. Scanning was performed from the parasternal, apical, subcostal, and suprasternal notch acoustic windows. Intravenous contrast (Definity) was administered. There were no complications. Therewere no contrast reactions. Study components: M-mode, 2D, complete spectral Doppler, and color Doppler. Height: 182.9cm. Height: 72in. Weight: 88kg. Weight: 194lb. BMI: 26.3kg/m^2. BSA: 2.13m^2.Blood pressure: 109/77 Study date: 03/13/2025. Study time: 02:12 PM. Location: Bedside. Cardiac Anatomy: LEFT VENTRICLE: The cavity size is normal. Wall thickness is increased lorrie pattern of mild to moderate LVH. Global systolic function is probablynormal. For Epic reporting: the left ventricular ejection fraction is 55%. No diagnostic regional wall motion abnormality identified. Regional wallmotion difficult to determine but improved with echo contrast. Interventricular septum shows abnormal bouncy motion. Diastolic function isindeterminate. RIGHT VENTRICLE: Not well visualized. The cavity size is normal.Systolic function is difficult to assess and probably reduced by acoustic quantification. Systolic pressure is within the normal range. LEFT ATRIUM: The atrium is at the upper limits of normal in size. RIGHT ATRIUM: Not well visualized. The atrium is normal in size. ATRIAL SEPTUM: No obvious PFO or ASD identified by 2D imaging and color Doppler. AORTIC VALVE: Not well visualized. The valve is trileaflet. The leafletsare mildly thickened. Mobility is not restricted. There is no stenosis.There is no significant regurgitation. MITRAL VALVE: The annulus is mildly calcified. Mobility is notrestricted. No evidence for prolapse. There is no evidence for stenosis. There is mildto moderate regurgitation. TRICUSPID VALVE: Not well visualized. The valve appears to be grossly normal. Mobility is unrestricted. There is no evidence for stenosis. There is moderate regurgitation. PULMONIC VALVE: Not well visualized. The valve appears to be grosslynormal. There is no evidence for stenosis. There is trace regurgitation. PERICARDIUM: A minimal pericardial effusion and/or fat pad wasidentified. AORTA: Aortic root: The root is not dilated. Measurements Left ventricle Value LVOT continued Value RUCHI, LAX 4.8 cm SV 47 ml ESD, LAX 3.2 cm Qs 9.4 L/min RUCHI/bsa, LAX 2.3 cm/m^2 Qs/bsa 4.4L/(min-m^2) ESD/bsa, LAX 1.5 cm/m^2 SV/bsa 22ml/m^2 FS, LAX 34 % FS, LAX chord 34 % Right ventricle Value ESD major ax, A4C 6.5 cm RUCHI, LAX 2.0 cm ESD/bsa major ax, A4C 3.1 cm/m^2 RUCHI 2.0 cm RUCHI minor ax, A4C 6.5 cm TAPSE, 2D 1.2 cm RUCHI/bsa minor ax, A4C 3.1 cm/m^2 TAPSE, MM 1.2 cm RUCHI major ax, A2C 7.7 cm S' lateral 6.4cm/sec ESD major ax, A2C 6.1 cm RUCHI/bsa major ax, A2C 3.6 cm/m^2 Left atrium Value ESD/bsa major ax, A2C 2.9 cm/m^2 AP dim, ES 4.0 cm IVS, ED 1.2 cm AP dim index, ES 1.9cm/m^2 ESD 3.2 cm SI dim, A4C 4.7 cm ESD/bsa 1.5 cm/m^2 Area ES, A4C 14 cm^2 FS 34 % Vol, S 46 ml PW, ED 1.2 cm Vol/bsa, S 22ml/m^2 IVS/PW, ED 1 Vol, ES, 1-p A4C 34 ml EDV 108 ml Vol/bsa, ES, 1-p A4C 16ml/m^2 ESV 40 ml Vol, ES, 1-p A2C 49 ml EF 63 % Vol/bsa, ES, 1-p A2C 23ml/m^2 SV 40 ml Vol, ES, 2-p 42 ml EDV/bsa 51 ml/m^2 Vol/bsa, ES, 2-p 20ml/m^2 ESV/bsa 19 ml/m^2 Vol, ES, A/L 37 ml SV/bsa 19 ml/m^2 Vol/bsa, ES, A/L 17ml/m^2 EDV, 1-p A2C 82 ml ESV, 1-p A2C 51 ml Right atrium Value EF, 1-p A2C 62 % Area, ES 12 cm^2 SV, 1-p A2C 68 ml Area, ES, A4C 12 cm^2 EDV/bsa, 1-p A2C 39 ml/m^2 ESV/bsa, 1-p A2C 24 ml/m^2 Aortic valve Value SV/bsa, 1-p A2C 32.2 ml/m^2 Peak v, S 87.23cm/sec EDV, 1-p A4C 93 ml VTI, S 17.6 cm ESV, 1-p A4C 34 ml Mean grad, S 2 mm Hg EF, 1-p A4C 64 % Peak grad, S 3 mm Hg SV, 1-p A4C 59 ml LVOT/AV, VTI ratio 0.85 EDV/bsa, 1-p A4C 44 ml/m^2 ZANDER, VTI 2.68 cm^2 ESV/bsa, 1-p A4C 16 ml/m^2 ZANDER/bsa, VTI 1.26cm^2/m^2 SV/bsa, 1-p A4C 28 ml/m^2 LVOT/AV, Vpeak ratio 0.87 EDV, 2-p 92 ml ZANDER, Vmax 2.74 cm^2 ESV, 2-p 33 ml ZANDER/bsa, Vmax 1.29cm^2/m^2 EF, 2-p 64 % SV, 2-p 31 ml Mitral valve Value EDV/bsa, 2-p 43 ml/m^2 Mean v, D 52.29cm/sec ESV/bsa, 2-p 16 ml/m^2 Peak E 72.8cm/sec SV/bsa, 2-p 14.8 ml/m^2 Peak A 61.4cm/sec EDV, MM Teich. 108 ml Decel slope 279.89cm/s^2 EF, MM Teich. 63 % Decel time 260 ms EDV/bsa, MM Teich. 51 ml/m^2 PHT 111 ms EF, MM on 2D Teich. 63 % Mean grad, D 1 mm Hg E', lat navi, TDI 7.5 cm/sec Peak grad, D 3 mm Hg E/e', lat navi, TDI 10 Peak E/A ratio 1.19 E', med navi, TDI 5.6 cm/sec MVA, PHT 1.98 cm^2 E/e', med navi, TDI 13 MVA/bsa, PHT 0.93cm^2/m^2 E', avg, TDI 6.6 cm/sec Vena contracta width 2.0 cm E/e', avg, TDI 11 Tricuspid valve Value LVOT Value TR peak v 200.93cm/sec Diam, S 2.0 cm Peak RV-RA grad, S 16 mm Hg Area 3.2 cm^2 Peak dacia, S 75.6 cm/sec Aortic root Value VTI, S 14.9 cm Root diam 3.4 cm Peak grad, S 2 mm Hg Root diam/bsa 1.6cm/m^2 Legend: (L) and (H) nataliya values outside specified reference range. [facility] are accredited with theIntersocietal Accreditation Commission - Echocardiography. Prepared and Electronically Authenticated Gonzalo Abdalla Confirmed 03/13/2025 16:12 us Tino Buckner MD ORDERABLES Final Result INTERFACE SYSTEM Refer to clinic/hospital department * MRI LUMBAR W WO CONTRAST (03/12/2025 5:17 PM CDT) Anatomical Region Laterality Modality Spine Magnetic Resonan ce 03/12/2025 5:17 PM CDT Impressions 03/12/2025 6:46 PM CDT IMPRESSION: Please see below. Exam: MRI LUMBAR W WO CONTRAST Date/Time of Exam: 03/12/2025 5:17 PM Reason For Exam: Lumbar radiculopathy, symptoms persist with > 6 wks treatment. Diagnosis: Unable to walk; Unable to care for self; Neck pain; Chronic low back pain, unspecified back pain laterality, unspecified whether sciatica present; Chronic low back pain, unspecified back pain laterality, unspecified whether sciatica present; Chest pain, unspecified type. Technique: MRI of the lumbar spine was performed prior to and following the administration of intravenous contrast. Contrast: 15 mL Multihance intravenously Findings: Unremarkable sagittal alignment. There is mild chronic height loss of the T12 vertebral body. No evidence of acute compression deformity. The conus terminates at the L1-2 level. There is no abnormal enhancement. L1-2: Unremarkable. L2-3: Slight disc bulge with mild left foraminal narrowing. L3-4: Slight disc bulge and mild facet arthropathy with mild bilateral foraminal narrowing. L4-5: Slight disc bulge and mild facet arthropathy with mild bilateral foraminal narrowing. L5-S1:Mild disc bulge and endplate ridging with moderate left foraminal narrowing. The visualized paraspinous soft tissues are unremarkable. IMPRESSION: Degenerative findings as described. No spinal stenosis. Moderate left foraminal narrowing at L5-S1. Several other foramina are mildly narrowed. Narrative Procedure Note Tamy Negron MD - 03/12/2025 IMPRESSION: Please see below. Exam: MRI LUMBAR W WO CONTRAST Date/Time of Exam: 03/12/2025 5:17 PM Reason For Exam: Lumbar radiculopathy, symptoms persist with > 6 wks treatment. Diagnosis: Unable to walk; Unable to care for self; Neck pain; Chronic low back pain, unspecified back pain laterality, unspecified whether sciatica present; Chronic low back pain, unspecified back pain laterality, unspecified whether sciatica present; Chest pain, unspecified type. Technique: MRI of the lumbar spine was performed prior to and following the administration of intravenous contrast. Contrast: 15 mL Multihance intravenously Findings: Unremarkable sagittal alignment. There is mild chronic height loss of the T12 vertebral body. No evidence of acute compression deformity. The conus terminates at the L1-2 level. There is no abnormal enhancement. L1-2: Unremarkable. L2-3: Slight disc bulge with mild left foraminal narrowing. L3-4: Slight disc bulge and mild facet arthropathy with mild bilateral foraminal narrowing. L4-5: Slight disc bulge and mild facet arthropathy with mild bilateral foraminal narrowing. L5-S1:Mild disc bulge and endplate ridging with moderate left foraminal narrowing. The visualized paraspinous soft tissues are unremarkable. IMPRESSION: Degenerative findings as described. No spinal stenosis. Moderate left foraminal narrowing at L5-S1. Several other foramina are mildly narrowed. Tino Buckner MD MR ORDERABLES Final Result * MRI CERVICAL W WO CONTRAST (03/12/2025 5:16 PM CDT) Anatomical Region Laterality Modality Spine Magnetic Resonan ce 03/12/2025 5:17 PM CDT Impressions 03/12/2025 6:27 PM CDT IMPRESSION: Please see below. Exam: MRI CERVICAL W WO CONTRAST Date/Time of Exam: 03/12/2025 5:16 PM Reason For Exam: Myelopathy, chronic, cervical spine. Diagnosis: Unable to walk; Unable to care for self; Neck pain; Chronic low back pain, unspecified back pain laterality, unspecified whether sciatica present; Chronic low back pain, unspecified back pain laterality, unspecified whether sciatica present; Chest pain, unspecified type. Technique: MRI of the cervical spine was performed prior to and following the administration of intravenous contrast. Contrast: 15 mL Multihance intravenously Findings: There is no spondylolisthesis or evidence of bone marrow edema. No areas of abnormal enhancement. C2-3: Unremarkable. C3-4: Shallow disc protrusion and small uncovertebral osteophytes with mild left foraminal narrowing. C4-5: Unremarkable. C5-6: Broad-based disc protrusion and uncovertebral osteophytes with moderate-severe spinal stenosis and flattening of the spinal cord contour. There is suspected to be mild increased T2 signal within the cord at this level. Severe bilateral foraminal narrowing which may compress the bilateral C6 nerve. C6-7: Shallow disc protrusion and uncovertebral osteophytes with mild left and moderate right foraminal narrowing. C7-T1: Unremarkable. The visualized paraspinous soft tissues are unremarkable. IMPRESSION: 1. Moderate-severe spinal stenosis at C5-6 with flattening of the spinal cord contour. There is suspected to be mild increased T2 signal within the cord at this level. This is likely symptomatic. 2. Severe bilateral foraminal narrowing at C5-6 which may impinge upon the C6 nerves. 3. Less pronounced degenerative changes at the other levels as described. Narrative Procedure Note Tamy Negron MD - 03/12/2025 IMPRESSION: Please see below. Exam: MRI CERVICAL W WO CONTRAST Date/Time of Exam: 03/12/2025 5:16 PM Reason For Exam: Myelopathy, chronic, cervical spine. Diagnosis: Unable to walk; Unable to care for self; Neck pain; Chronic low back pain, unspecified back pain laterality, unspecified whether sciatica present; Chronic low back pain, unspecified back pain laterality, unspecified whether sciatica present; Chest pain, unspecified type. Technique: MRI of the cervical spine was performed prior to and following the administration of intravenous contrast. Contrast: 15 mL Multihance intravenously Findings: There is no spondylolisthesis or evidence of bone marrow edema. No areas of abnormal enhancement. C2-3: Unremarkable. C3-4: Shallow disc protrusion and small uncovertebral osteophytes with mild left foraminal narrowing. C4-5: Unremarkable. C5-6: Broad-based disc protrusion and uncovertebral osteophytes with moderate-severe spinal stenosis and flattening of the spinal cord contour. There is suspected to be mild increased T2 signal within the cord at this level. Severe bilateral foraminal narrowing which may compress the bilateral C6 nerve. C6-7: Shallow disc protrusion and uncovertebral osteophytes with mild left and moderate right foraminal narrowing. C7-T1: Unremarkable. The visualized paraspinous soft tissues are unremarkable. IMPRESSION: 1. Moderate-severe spinal stenosis at C5-6 with flattening of the spinal cord contour. There is suspected to be mild increased T2 signal within the cord at this level. This is likely symptomatic. 2. Severe bilateral foraminal narrowing at C5-6 which may impinge upon the C6 nerves. 3. Less pronounced degenerative changes at the other levels as described. Tino Buckner MD MR ORDERABLES Final Result * EXTRA TUBE (URINE MILLER) (03/11/2025 9:46 PM CDT) Urine URINE SPECIMEN OBTAINED BY CLEAN CATCH PROCEDURE / Unknown Collection / Unknown 03/11/2025 9:46 PM CDT 03/11/2025 9:55 PM CDT Tamy Lindsey MD URINE ORDERABLES Final Resul t Performing Organization Address City/State/[facility] Co de Phone Number [facility] CLIA # [id number] [facility] [address] [place], [place] [address] * (ABNORMAL) URINALYSIS WITH REFLEX MICROSCOPIC (03/11/2025 9:46 PM CDT) COLOR UA Yellow Pale to Dark Yellow 03/11/2025 10:21 PM T [facility] CLARITY UA Clear Clear 03/11/2025 10:21 PM T [facility] SPECIFIC GRAVITY UA 1.025 1.003 - 1.035 03/11/2025 10:21 PM T [facility] PH UA 6.0 5.0 - 8.0 03/11/2025 10:21 PM T [facility] LEUKOCYTE ESTERASE UA Negative Negative 03/11/2025 10:21 PM T [facility] NITRITE UA Negative Negative 03/11/2025 10:21 PM T [facility] PROTEIN UA 2+(A) Negative 03/11/2025 10:21 PM T [facility] GLUCOSE UA Trace(A) Negative 03/11/2025 10:21 PM CDT [facility] KETONES UA Negative Negative 03/11/2025 10:21 PM CDT [facility] UROBILINOGEN UA <2.0 <2.0 mg/dL 10:21 PM CDT [facility] BILIRUBIN UA Negative Negative 03/11/2025 10:21 PM CDT [facility] BLOOD UA Negative Negative 03/11/2025 10:21 PM CDT [facility] WBC UA 0-2 0 - 2 /hpf 03/11/2025 10:21 PM CDT [facility] RBC UA 0-2 0 - 2 /hpf 03/11/2025 10:21 PM CDT [facility] BACTERIA UA Negative Negative /hpf 03/11/2025 10:21 PM CDT [facility] EPITHELIAL CELLS, URINE 0-5 0 - 5 /hpf 03/11/2025 10:21 PM CDT [facility] CALCIUM OXALATE, URINE Present(A) Absent 03/11/2025 10:21 PM CDT [facility] SPERMATOZOA Present(A) Absent 03/11/2025 10:21 PM T [facility] Urine URINE SPECIMEN OBTAINED BY CLEAN CATCH PROCEDURE / Unknown Collection / Unknown 03/11/2025 9:46 PM CDT 03/11/2025 9:55 PM CDT us Tamy Lindsey MD URINE ORDERABLES Final Resul t [facility] # [id number] [address] [place] [address] [place], [place] [address] * CTA CHEST W AND/OR WO CONTRAST (03/11/2025 7:59 PM CDT) Anatomical Region Laterality Modality Chest Computed Tomogra phy 03/11/2025 8:00 PM CDT Impressions 03/11/2025 8:49 PM CDT IMPRESSION: 1. Negative for acute pulmonary embolus. 2. Mild pulmonary edema and pulmonary hypertension. MACRO: None Narrative 03/11/2025 8:49 PM CDT EXAMINATION: CTA CHEST W AND/OR WO CONTRAST CLINICAL HISTORY: ASSOCIATED DIAGNOSIS: Pulmonary embolism (PE) suspected, high prob ORDERING PROVIDER: TAMY LINDSEY TECHNOLOGISTS NOTE: COMPARISON: CTA chest and abdomen/pelvis 05/20/2014 TECHNIQUE: Axial images of the chest were obtained from above the lung apices through the level of the adrenal glands during the bolus administration of intravenous contrast. Multiplanar and 3D maximum intensity projection reformulation's were created from the raw CT data which were interpreted in conjunction with the axial images to render the findings listed below. Before infusion of intravenous contrast, radiology personnel investigated the possibility of an allergic history and of any history of reaction to iodinated contrast material. INTRA-PROCEDURE MEDS: IOPAMIDOL 61 % INTRAVENOUS SOLUTION (MULTI-DOSE BULK PACK) Given:70 mL FINDINGS: Exam Quality: Overall exam quality is satisfactory. Pulmonary arterial enhancement is optimal, the breath hold is adequate, and there are no significant artifacts impacting image quality. Pulmonary Arteries: There are no filling defects within the pulmonary arterial system to suggest pulmonary embolus. Cardiovasculature: The heart is normal in size. Severe three-vessel coronary calcification. Atherosclerotic calcifications within the thoracic aorta. The pulmonary trunk is dilated 3.7 cm suggesting hypertension. Mediastinum/Pericardium: Unremarkable Pleura: Unremarkable Central Airways: Widely patent. Lungs: No focal consolidation. Mild interlobular septal and peribronchial thickening. There is atelectasis/scarring. Nodules: No nodules are present that require follow up. Lymph Nodes: Unchanged prominent mediastinal lymph nodes, likely reactive. Visualized musculoskeletal structures: No acute fracture or destructive osseous lesion is identified. Included images of the upper abdomen: The patient is status post cholecystectomy. Procedure Note Juana Montero MD - 03/11/2025 EXAMINATION: CTA CHEST W AND/OR WO CONTRAST CLINICAL HISTORY: ASSOCIATED DIAGNOSIS: Pulmonary embolism (PE) suspected, high prob ORDERING PROVIDER: TAMY LINDSEY TECHNOLOGISTS NOTE: COMPARISON: CTA chest and abdomen/pelvis 05/20/2014 TECHNIQUE: Axial images of the chest were obtained from above the lung apices through the level of the adrenal glands during the bolus administration of intravenous contrast. Multiplanar and 3D maximum intensity projection reformulation's were created from the raw CT data which were interpreted in conjunction with the axial images to render the findings listed below. Before infusion of intravenous contrast, radiology personnel investigated the possibility of an allergic history and of any history of reaction to iodinated contrast material. INTRA-PROCEDURE MEDS: IOPAMIDOL 61 % INTRAVENOUS SOLUTION (MULTI-DOSE BULK PACK) Given:70 mL FINDINGS: Exam Quality: Overall exam quality is satisfactory. Pulmonary arterial enhancement is optimal, the breath hold is adequate, and there are no significant artifacts impacting image quality. Pulmonary Arteries: There are no filling defects within the pulmonary arterial system to suggest pulmonary embolus. Cardiovasculature: The heart is normal in size. Severe three-vessel coronary calcification. Atherosclerotic calcifications within the thoracic aorta. The pulmonary trunk is dilated 3.7 cm suggesting hypertension. Mediastinum/Pericardium: Unremarkable Pleura: Unremarkable Central Airways: Widely patent. Lungs: No focal consolidation. Mild interlobular septal and peribronchial thickening. There is atelectasis/scarring. Nodules: No nodules are present that require follow up. Lymph Nodes: Unchanged prominent mediastinal lymph nodes, likely reactive. Visualized musculoskeletal structures: No acute fracture or destructive osseous lesion is identified. Included images of the upper abdomen: The patient is status post cholecystectomy. IMPRESSION: 1. Negative for acute pulmonary embolus. 2. Mild pulmonary edema and pulmonary hypertension. MACRO: None Tamy Lindsey MD CT ORDERABLES Final Result * CT LUMBAR SPINE WO CONTRAST (03/11/2025 7:58 PM CDT) Anatomical Region Laterality Modality Spine Computed Tomogra phy 03/11/2025 7:59 PM CDT Impressions 03/11/2025 8:45 PM CDT IMPRESSION: No fracture or malalignment of the lower thoracic or lumbar spine. MACRO: None Narrative 03/11/2025 8:45 PM CDT EXAMINATION: CT LUMBAR SPINE WO CONTRAST CLINICAL HISTORY: ASSOCIATED DIAGNOSIS: pain ORDERING PROVIDER: TAMY LINDSEY TECHNOLOGISTS NOTE: COMPARISON: None TECHNIQUE: Thin axial images were obtained through the lumbar region without intravenous contrast. 2D sagittal and coronal reconstructions were obtained from the axial data. FINDINGS: Vertebrae: No acute fracture or traumatic malalignment. No aggressive osseous lesions. Mild multilevel spondylosis without critical spinal canal stenosis. Visible sacrum and pelvis: No acute abnormality. Procedure Note Juana Montero MD - 03/11/2025 EXAMINATION: CT LUMBAR SPINE WO CONTRAST CLINICAL HISTORY: ASSOCIATED DIAGNOSIS: pain ORDERING PROVIDER: TAMY HEIN NOTE: COMPARISON: None TECHNIQUE: Thin axial images were obtained through the lumbar region without intravenous contrast. 2D sagittal and coronal reconstructions were obtained from the axial data. FINDINGS: Vertebrae: No acute fracture or traumatic malalignment. No aggressive osseous lesions. Mild multilevel spondylosis without critical spinal canal stenosis. Visible sacrum and pelvis: No acute abnormality. IMPRESSION: No fracture or malalignment of the lower thoracic or lumbar spine. MACRO: None us Tamy Lindsey MD CT ORDERABLES Final Result * CT CERVICAL SPINE WO CONTRAST (03/11/2025 7:58 PM CDT) Anatomical Region Laterality Modality Spine Computed Tomogra phy 03/11/2025 7:58 PM CDT Impressions 03/11/2025 8:44 PM CDT IMPRESSION: No acute cervical spine fracture or traumatic malalignment. MACRO: None Narrative 03/11/2025 8:44 PM CDT EXAMINATION: CT CERVICAL SPINE WO CONTRAST CLINICAL HISTORY: ASSOCIATED DIAGNOSIS: pain ORDERING PROVIDER: TAMY HEIN NOTE: COMPARISON: None TECHNIQUE: Thin isotropic axial images were obtained from the skull base to the upper thoracic spine without intravenous contrast. 2D sagittal and coronal reconstructions were obtained from the axial data. FINDINGS: Vertebrae: No acute fracture or traumatic malalignment. No aggressive osseous lesions. Mild multilevel spondylosis causing at least mild canal narrowing. Soft Tissues: No acute abnormality. Procedure Note Juana Montero MD - 03/11/2025 EXAMINATION: CT CERVICAL SPINE WO CONTRAST CLINICAL HISTORY: ASSOCIATED DIAGNOSIS: pain ORDERING PROVIDER: TAMY HEIN NOTE: COMPARISON: None TECHNIQUE: Thin isotropic axial images were obtained from the skull base to the upper thoracic spine without intravenous contrast. 2D sagittal and coronal reconstructions were obtained from the axial data. FINDINGS: Vertebrae: No acute fracture or traumatic malalignment. No aggressive osseous lesions. Mild multilevel spondylosis causing at least mild canal narrowing. Soft Tissues: No acute abnormality. IMPRESSION: No acute cervical spine fracture or traumatic malalignment. MACRO: None Tamy Lindsey MD CT ORDERABLES Final Result * C-REACTIVE PROTEIN (03/11/2025 5:58 PM CDT) [facility] CRP <3.0 0.0 - 5.0 mg/L 03/11/2025 10:37 PM CDT [facility] Blood Venipuncture / Unknown 03/11/2025 5:58 PM CDT 03/11/2025 6:12 PM CDT Eddie Brar MD CHEMISTRY ORDERABLES Final Resu lt Performing Organization Address [facility] Co de Phone Number [facility] CLIA # [id number] [address] [address] * (ABNORMAL) TSH (03/11/2025 5:58 PM CDT) [facility] TSH 33.45(H) 0.27 - 4.20 uIU/mL 03/11/2025 10:38 PM CDT [facility] Blood Venipuncture / Unknown 03/11/2025 5:58 PM CDT 03/11/2025 6:12 PM CDT Eddie Brar MD CHEMISTRY ORDERABLES Final Resu lt Performing Organization Address City/[facility]/ZIP Co de Phone Number [facility] CLIA # [id number] [address] [address] * (ABNORMAL) T4 FREE (03/11/2025 5:58 PM CDT) [facility] T4 FREE <0.10(L) 0.81 - 1.70 ng/dL 03/12/2025 8:14 AM CDT [facility] Blood Venipuncture / Unknown 03/11/2025 5:58 PM CDT 03/11/2025 6:12 PM CDT Tino Buckner MD CHEMISTRY ORDERABLES Final R esult Performing Organization Address [facility] Co de Phone Number [facility] CLIA # [id number] [address] [place] [address] * (ABNORMAL) SEDIMENTATION RATE (03/11/2025 3:28 PM CDT) ESR (SEDIMENTATION RATE) 11(H) 0 - 10 mm/Hr 03/11/2025 10:36 PM CDT [facility] Blood Venipuncture / Unknown 03/11/2025 3:28 PM CDT 03/11/2025 3:41 PM CDT us Eddie Brar MD HEMATOLOGY ORDERABLES Final Res ult Performing Organization Address [facility] Co de Phone Number [facility] CLIA # [id number] [address] [address] * (ABNORMAL) LIPASE (03/11/2025 3:28 PM CDT) LIPASE 109(H) 13 - 60 U/L 03/11/2025 6:16 PM CDT [facility] Blood Venipuncture / Unknown 03/11/2025 3:28 PM CDT 03/11/2025 3:41 PM CDT Tamy Lindsey MD CHEMISTRY ORDERABLES Final R esult Performing Organization Address [facility] Co de Phone Number [facility] [employer] (by [employer]) [facility] CLIA # [id number] [address] [place] [address] * (ABNORMAL) MICROALBUMIN/CREATININE RATIO, RANDOM UR (08/09/2021 10:51 AM JUDICIAL REGISTRAR) Creatinine, Urine 68 20 - 320 mg/dL [facility] MICROALBUMIN, URINE 5.7 See Note: mg/dL [facility] Comment: Reference Range: Reference Range Not established MICROALBUMIN/CREAT RATIO, UR 84(H) <30 mcg/mg creat [facility] Comment: The ADA defines abnormalities in albumin excretion as follows: Albuminuria Category Result (mcg/mg creatinine) Normal to Mildly increased <30 Moderately increased 30-299 Severely increased > OR = 300 The ADA recommends that at least two of three specimens collected within a 3-6 month period be abnormal before considering a patient to be within a diagnostic category. Test Performed at: [facility] [address] [place] [address] Alex oCats D.O., MPH Urine URINE SPECIMEN OBTAINED BY CLEAN CATCH PROCEDURE / Unknown 08/09/2021 10:51 AM JUDICIAL REGISTRAR 08/10/2021 11:58 PM JUDICIAL REGISTRAR Marylou Zazueta SPEED BELT SANDER TENDER URINE ORDERABLES Final Result [facility] [address] [id number] * (ABNORMAL) LIPID PANEL (08/09/2021 10:51 AM JUDICIAL REGISTRAR) CHOLESTEROL 221(H) <200 mg/dL [facility] HDL 34(L) > OR = 40 mg/dL [facility] TRIGLYCERIDE 602(H) <150 mg/dL [facility] Comment: If a non-fasting specimen was collected, consider repeat triglyceride testing on a fasting specimen if clinically indicated. Tipton et al. J. of Clin. Lipidol. 2015;9:129-169. There is increased risk of pancreatitis when the triglyceride concentration is very high (> or = 500 mg/dL, especially if > or = 1000 mg/dL). Saeed et al. J. of Clin. Lipidol. 2015;9:129-169. LDL CALCULATED mg/dL (calc) [facility] Comment: LDL cholesterol not calculated. Triglyceride levels greater than 400 mg/dL invalidate calculated LDL results. Reference range: <100 Desirable range <100 mg/dL for primary prevention; <70 mg/dL for patients with CHD or diabetic patients with > or = 2 CHD risk factors. LDL-C is now calculated using the Jono calculation, which is a validated novel method providing better accuracy than the Friedewald equation in the estimation of LDL-C. Elias ARMENDARIZ et al. [place]. 2013;310(19): 1175-7564 (http://education.Spotwish/faq/BPL889) CHOL/HDL RATIO 6.5(H) <5.0 (calc) [facility] TOTAL NON-HDL CHOL(LDL+VLDL) 187(H) <130 mg/dL (calc) [facility] Comment: For patients with diabetes plus 1 major ASCVD risk factor, treating to a non-HDL-C goal of <100 mg/dL (LDL-C of <70 mg/dL) is considered a therapeutic option. Test Performed at: [facility] [address] [place] [address] Alex Coats D.O., MPH Blood 08/09/2021 10:5 1 AM JUDICIAL REGISTRAR 08/10/2021 11:51 AM JUDICIAL REGISTRAR us Marylou Zazueta SPEED BELT SANDER TENDER CHEMISTRY ORDERABLES Final Re sult [facility] [address] [place] [address] * US ABDOMEN COMPLETE (11/16/2007 7:55 AM CDT) Anatomical Region Laterality Modality Abdomen Other Narrative 11/16/2007 7:55 AM CDT Ultrasound of [...] 11/18/07 SDM Procedure Note Alex Moore - 10/18/2022 Ultrasound of the Abdomen - Nov 16, [...] cm in length while the left kidney blphyjdk77.6 cm in length. There is no evidence [...] SDM Primitivo Crowder MD ORDERABLES Final Result from Last 3 Months or Most Recently Relevant to Health Maintenance Insurance MEDICAID [place] DUAL COMPLETE HMO [facility] [id number] RX [employer] RX Member Subscriber Plan / Payer (Ef fective 2022-Present) Name:Hudson Griffin Relation to Subscriber:Self Name:Hudson Griffin [place] Payer ID:Not on file Group ID:[id number] Type:RX Medicare Part D Address: [place], [place] RX INFOCROSSING Medicaid Advance Directives For more information, please contact: [phone] * Full Code (Latest Code Status on File) Date Activated Date Inactivated Comments 03/23/2025 3:15 PM 03/27/2025 6:13 PM * Full Code Date Activated Date Inactivated Comments 03/14/2025 7:33 PM 03/23/2025 2:46 PM * Full Code Date Activated Date Inactivated Comments 03/11/2025 10:11 PM 03/14/2025 7:33 PM
--- OUTSIDE RECORDS SUMMARY | 2025-04-26 04:26 | XMS_ITS | Encounter Summary ---
Author Organization [facility] Address [address] [place] [address] Care Team Providers Care Contact Clerk Name Role Phone Primitivo Crowder MD Primary Care Provider [phone] Encounter Details Date Type Department Care Team (Latest Contact Info) Description 07/08/2002 Outpatient Historical [facility] [address] [phone] Primitivo Crowder MD [address] [place] [phone] HYPERLIPIDEMIA NEC/NOS (Primary Dx) Social History Tobacco Use Types Packs/Day Years Used Date Smoking Tobacco: Never Assessed Sex and Gender Information Value Date Recorded Sex Assigned at Not on file 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
--- OUTSIDE RECORDS SUMMARY | 2025-04-26 04:26 | XMS_ITS | Encounter Summary ---
Author Organization [facility] Address [address] [place] [address] Care Team Providers Care Joint Creaser Name Role Phone Primitivo Crowder MD Primary Care Provider [phone] Encounter Details Date Type Department Care Team (Latest Contact Info) Description 07/08/2001 Outpatient Historical [facility] [address] [place] [phone] Mg Young MD [address] [place] [address] CELLULITIS NOS (Primary Dx); ENLARGEMENT LYMPH NODES; PSORIATIC ARTHROPATHY (CMS/HCC) Social History Tobacco Use Types Packs/Day Years Used Date Smoking Tobacco: Never Assessed Sex and Gender Information Value Date Recorded Sex Assigned at Not on file 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
--- OUTSIDE RECORDS SUMMARY | 2025-04-26 04:26 | XMS_ITS | Encounter Summary ---
Author Organization [facility] Address [address] [place] [address] Care Team Providers Care Splitter Machine Name Role Phone Primitivo Crowder MD Primary Care Provider [phone] Encounter Details Date Type Department Care Team (Latest Contact Info) Description 04/30/2002 Outpatient Historical [facility] [address] [phone] Primitivo Crowder MD [address] [place] [phone] ANAL FISSURE (Primary Dx); MIXED HYPERLIPIDEMIA; ABNORMAL LIVER FUNCTION STUDY; HYPERTENSION NOS Social History Tobacco Use Types Packs/Day Years Used Date Smoking Tobacco: Never Assessed Sex and Gender Information Value Date Recorded Sex Assigned at Not on file 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
--- OUTSIDE RECORDS SUMMARY | 2025-04-26 04:26 | XMS_ITS | Encounter Summary ---
Author Organization [facility] Address [address] [place] [address] Care Team Providers Care Deep Submergence Vehicle Operator Name Role Phone Primitivo Crowder MD Primary Care Provider [phone] Encounter Details Date Type Department Care Team (Latest Contact Info) Description 06/18/2002 Outpatient Historical [facility] [address] [phone] Primitivo Crowder MD [address] [place] [phone] HYPERLIPIDEMIA NEC/NOS (Primary Dx) Social History Tobacco Use Types Packs/Day Years Used Date Smoking Tobacco: Never Assessed Sex and Gender Information Value Date Recorded Sex Assigned at Not on file 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
--- OUTSIDE RECORDS SUMMARY | 2025-04-26 04:26 | XMS_ITS | Encounter Summary ---
Author Organization [facility] Address [address] [facility] Attn: [place] [address] Care Team Providers Care As400 Administrator Name Role Phone Primitivo Crowder MD Primary Care Provider [phone] Encounter Details Date Type Department Care Team (Late st Contact Info) Description 07/08/2001 Outpatient Historical Primitivo Crowder MD [address] [place] [address] Social History Tobacco Use Types Packs/Day Years Used Date Smoking Tobacco: Never Assessed Sex and Gender Information Value Date Recorded Sex Assigned at Not on file 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
--- OUTSIDE RECORDS SUMMARY | 2025-04-26 04:26 | XMS_ITS | Encounter Summary ---
Author Organization [facility] Address [address] [place] [address] Care Team Providers Care Manager Business Information Name Role Phone Primitivo Crowder MD Primary Care Provider [phone] Encounter Details Date Type Department Care Team (Latest Contact Info) Description 06/15/2008 Outpatient Historical [facility] [address] [place] [address] AMBULANCE, [facility] Unspecified Essential Hypertension Social History Tobacco Use Types Packs/Day Years Used Date Smoking Tobacco: Never Assessed Sex and Gender Information Value Date Recorded Sex Assigned at Not on file Legal Sex Male 4:47 AM HEALTH SPECIALIST Gender Identity Not on file Sexual Orientation Not on file documented as of this encounter Plan of Treatment Not on file documented as of this encounter Visit Diagnoses Diagnosis Unspecified essential hypertension documented in this encounter Care Teams Manager Business Information Relationship Specialty Start Date End Date Primitivo Crowder MD [address] [place] [address] PCP - General Family Practice 05/20/14 documented as of this encounter
--- OUTSIDE RECORDS SUMMARY | 2025-04-26 04:26 | XMS_ITS | Encounter Summary ---
Author Organization [facility] Address [address] [place] [address] Care Team Providers Care Mainframe Systems Engineer Name Role Phone Primitivo Crowder MD Primary Care Provider [phone] Encounter Details Date Type Department Care Team (Latest Contact Info) Description 11/22/2004 Outpatient Historical [facility] [address] [phone] Primitivo Crowder MD [address] [place] [phone] MIXED HYPERLIPIDEMIA (Primary Dx); HEPATITIS NOS; DYSTHYMIC DISORDER Social History Tobacco Use Types Packs/Day Years Used Date Smoking Tobacco: Never Assessed Sex and Gender Information Value Date Recorded Sex Assigned at Not on file 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
--- OUTSIDE RECORDS SUMMARY | 2025-04-26 04:26 | XMS_ITS | Encounter Summary ---
Author Organization [facility] Address [address] [place] [address] Care Team Providers Care Automotive Product Engineer Name Role Phone Primitivo Crowder MD Primary Care Provider [phone] Encounter Details Date Type Department Care Team (Late st Contact Info) Description 04/05/2008 Outpatient Historical [facility] [address] [place] [phone] Primitivo Crowder MD [address] [place] [address] Abdominal Pain Social History Tobacco Use Types Packs/Day Years Used Date Smoking Tobacco: Never Assessed Sex and Gender Information Value Date Recorded Sex Assigned at Not on file Legal 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 Gender Identity Not on file Sexual Orientation Not on file documented as of this encounter Plan of Treatment Not on file documented as of this encounter Procedures Procedure Name Priority Date/Time Associated Diagnosis Comments NM CONSULTATION Routine 04/06/2008 10:54 AM CDT documented in this encounter Results * NM CONSULTATION (04/06/2008 10:54 AM CDT) 04/06/2008 10:5 4 AM CDT Narrative INTERFACE SYSTEM - 04/06/2008 12:14 PM CDT Radionuclide Hepatobiliary Imaging with CCK (cholecystokinin) Stimulation and Quantification: Radiopharmaceutical: Tc-99m (technetium-99m) mebrofenin Dose: 5.49 mCi Additional Medications: Kinevac Dose: 2.0 mcg Reason for Consultation: Upper abdominal pain Following the intravenous infusion of the radiopharmaceutical agent, sequential imaging was obtained over the anterior abdomen through 60 minutes. The liver is of normal size, location, and tracer distribution. There is physiologic clearance of tracer from the blood and passage into the biliary tree, with the gallbladder first observed at 5 minutes and bowel activity at 30 minutes. There is spontaneous reflux of tracer into the stomach. The patient was subsequently administered the CCK (cholecystokinin) analogue in a dose of 0.02 mcg/kg over three minutes followed by imaging for the next 25 minutes, demonstrating very little emptying of tracer from the gallbladder without further reflux into the stomach or intrahepatic biliary tree. Gallbladder region of interest time-activity curve derived ejection fraction is abnormal at eight %, with normal being greater than 35%. Impression: 1. 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 Ensure other conditions are not present which are associated with false positive results such as diabetes and chronic gastrointestinal disease including celiac disease. 2. 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 3. [<Normal hepatocyte function, patency of the common bile duct. - Dictated By: Bernardino Coffey M.D. Electronically Signed By: Bernardino Coffey M.D. Date Signed: 04/06/08 Procedure Note Bernardino Coffey - 04/06/2008 Radionuclide Hepatobiliary Imaging with CCK (cholecystokinin) Stimulationand Quantification: Radiopharmaceutical: Tc-99m (technetium-99m) mebrofenin Dose: 5.49mCi Additional Medications: Kinevac Dose: 2.0 mcg Reason for Consultation: Upper abdominal pain Following the intravenous infusion of the radiopharmaceutical agent,sequential imaging was obtained over the anterior abdomen through 60 minutes. The liver is of normal size,location, and tracer distribution. There is physiologic clearance of tracer from the blood andpassage into the biliary tree, with the gallbladder first observed at 5 minutes and bowel activity at30 minutes. There is spontaneous reflux of tracer into the stomach. The patient was subsequently administered the CCK (cholecystokinin)analogue in a dose of 0.02 mcg/kg over three minutes followed by imaging for the next 25 minutes,demonstrating very little emptying of tracer from the gallbladder without further reflux into the stomach orintrahepatic biliary tree. Gallbladder region of interest time-activity curve derived ejectionfraction is abnormal at eight %, with normal being greater than 35%. Impression: 1. 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 Ensureother conditions are not present which are associated with false positive results such as diabetesand chronic gastrointestinal disease including celiac disease. 2. 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 3. [<Normal hepatocyte function, patency of the common bile duct. - Dictated By: Beranrdino Coffey M.D. Electronically Signed By: Bernardino Coffey M.D. Date Signed: 04/06/08 Primitivo Crowder MD IN ORDERABLES Final Result INTERFACE SYSTEM Refer to clinic/hospital department documented in this encounter Visit Diagnoses Diagnosis Abdominal pain documented in this encounter Care Teams Automotive Product Engineer Relationship Specialty Start Date End Date Primitivo Crowder MD [address] [place] [phone] PCP - General Family Practice 05/20/14 documented as of this encounter
--- OUTSIDE RECORDS SUMMARY | 2025-04-26 04:26 | XMS_ITS | Encounter Summary ---
Author Organization [facility] Address [address] [place] [address] Care Team Providers Care Technician Automatic Name Role Phone Primitivo Crowder MD Primary Care Provider [phone] Encounter Details Date Type Department Care Team (Latest Contact Info) Description 06/17/2001 Outpatient Historical [facility] [address] [phone] Primitivo Crowder MD [address] [place] [address] HYPERLIPIDEMIA NEC/NOS (Primary Dx); VACCINE FOR INFLUENZA Social History Tobacco Use Types Packs/Day Years Used Date Smoking Tobacco: Never Assessed Sex and Gender Information Value Date Recorded Sex Assigned at Not on file 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
--- OUTSIDE RECORDS SUMMARY | 2025-04-26 04:26 | XMS_ITS | Encounter Summary ---
Author Organization [facility] Address [address] [place] [address] Care Team Providers Care Manager Utilization Management Name Role Phone Primitivo Crowder MD Primary Care Provider Encounter Details Date Type Department Care Team (Latest Contact Info) Description 06/18/2002 Outpatient Historical [facility] [address] [phone] Primitivo Crowder MD [address] [place] [phone] HYPERLIPIDEMIA NEC/NOS (Primary Dx) Social History Tobacco Use Types Packs/Day Years Used Date Smoking Tobacco: Never Assessed Sex and Gender Information Value Date Recorded Sex Assigned at Not on file 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
--- OUTSIDE RECORDS SUMMARY | 2025-04-26 04:26 | XMS_ITS | Encounter Summary ---
Author Organization [facility] Address [address] [place] [address] Care Team Providers Care Spanish Instructor Name Role Phone Primitivo Crowder MD Primary Care Provider [phone] Encounter Details Date Type Department Care Team (Latest Contact Info) Description 06/23/2002 Outpatient Historical [facility] [address] [phone] Primitivo Crowder MD [address] [place] [phone] ABDOMINAL PAIN UNSPEC SITE (Primary Dx) Social History Tobacco Use Types Packs/Day Years Used Date Smoking Tobacco: Never Assessed Sex and Gender Information Value Date Recorded Sex Assigned at Not on file 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
--- OUTSIDE RECORDS SUMMARY | 2025-04-26 04:26 | XMS_ITS | Encounter Summary ---
Author Organization [facility] Address [address] [place] [address] Care Team Providers Care Service Associate Name Role Phone Primitivo Crowder MD Primary Care Provider [phone] Encounter Details Date Type Department Care Team (Latest Contact Info) Description 10/16/2004 Outpatient Historical [facility] Medicine [employer] [address] [phone] Erica Garber MD [address] [place] [phone] SHORTNESS OF BREATH (Primary Dx); HEADACHE; MEMORY LOSS; DYSTHYMIC DISORDER Social History Tobacco Use Types Packs/Day Years Used Date Smoking Tobacco: Never Assessed Sex and Gender Information Value Date Recorded Sex Assigned at Not on file 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
--- OUTSIDE RECORDS SUMMARY | 2025-04-26 04:26 | XMS_ITS | Encounter Summary ---
Author Organization [facility] Address [address] [place] [address] Care Team Providers Care Graduate Teacher Education Name Role Phone Primitivo Crowder MD Primary Care Provider [phone] Encounter Details Date Type Department Care Team (Latest Contact Info) Description 09/14/2002 Outpatient Historical [address] [phone] Primitivo Crowder MD [address] [place] [phone] ACUTE FRONTAL SINUSITIS (Primary Dx); SPASM OF MUSCLE Social History Tobacco Use Types Packs/Day Years Used Date Smoking Tobacco: Never Assessed Sex and Gender Information Value Date Recorded Sex Assigned at Not on file 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
--- OUTSIDE RECORDS SUMMARY | 2025-04-26 04:26 | XMS_ITS | Encounter Summary ---
Author Organization [facility] Address [address] [place] [address] Care Team Providers Care Director Recreation Name Role Phone Primitivo Crowder MD Primary Care Provider [phone] Encounter Details Date Type Department Care Team (Latest Contact Info) Description 08/24/2004 Outpatient Historical [facility] [address] [place] [phone] Primitivo Crowder MD [address] [place] [phone] MYALGIA AND MYOSITIS NOS (Primary Dx); HYPERTENSION NOS; LIVER DISORDERS NEC Social History Tobacco Use Types Packs/Day Years Used Date Smoking Tobacco: Never Assessed Sex and Gender Information Value Date Recorded Sex Assigned at Not on file 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
--- OUTSIDE RECORDS SUMMARY | 2025-04-26 04:26 | XMS_ITS | Encounter Summary ---
Author Organization [facility] Address [address] [place] [address] Care Team Providers Care Perforator Operator Oil Well Name Role Phone Primitivo Crowder MD Primary Care Provider Encounter Details Date Type Department Care Team (Latest Contact Info) Description 10/03/[address] 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
--- OUTSIDE RECORDS SUMMARY | 2025-04-26 04:26 | XMS_ITS | Encounter Summary ---
Author Organization [facility] Address [address] [place] [address] Care Team Providers Care Tetryl Dissolver Operator Name Role Phone Primitivo Crowder MD Primary Care Provider [phone] Encounter Details Date Type Department Care Team (Latest Contact Info) Description 11/16/2001 Outpatient Historical [facility] Medicine [place] [address] [phone] Erica Garber MD [address] [place] [address] SPRAIN NEC (Primary Dx); SPASM OF MUSCLE Social History Tobacco Use Types Packs/Day Years Used Date Smoking Tobacco: Never Assessed Sex and Gender Information Value Date Recorded Sex Assigned at Not on file 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
--- NOTE | 2025-04-26 04:27 | W.ED.ABDPA2 ---
HPI - Abdominal Pain General: Chief Complaint: Abdominal Pain Stated Complaint: constipation Time Seen by Provider: 04/26/25 04:25 Source: patient and EMS Mode of arrival: EMS Limitations: no limitations History of Present Illness: 64-year-old male states he has been having diffuse abdominal pain over the last 5 to 6 days. He states that he has diffuse pain he rates a 6 out of 10. States has been having constipation has not had a bowel movement in roughly a week he has been taking milk of mag. Denies any fever denies any vomiting. Associated Symptoms: Reports constipation; Denies chills, diarrhea, fever(s), nausea and vomiting Related Data Home Medications ?Medication ?Instructions ?Recorded ?Confirmed aspirin 81 mg tablet,delayed 81 mg PO EVERY OTHER DAY 04/29/23 09/10/24 release metformin 1,000 mg tablet,extended mg PO 09/09/23 09/10/24 release 24hr (osmotic) metformin 500 mg tablet,extended 500 mg PO BID 09/09/23 09/10/24 release 24 hr Previous Rx's ?Medication ?Instructions ?Recorded OrthoWedge heel shoe to Left and #1 ea 11/15/22 Right Foot blood-glucose meter ([employer]apor[employer] #1 ea 11/19/22 Glucose Monitoring System kit) pen needle, diabetic 32 gauge x #50 ea 11/19/2208/07 (BD Ultra-Fine Micro Pen Needle) carbidopa 25 mg-levodopa 100 mg 1 tab PO TID #90 tabs 09/09/23 tablet Diabetic shoes with 3 sets of #1 ea 09/11/23 insoles toe filler on the right mupirocin 2 % topical ointment 1 applic topical BID 2 weeks #22 10/09/23 grams hydrocodone 5 mg-acetaminophen 325 1 tab PO Q8H PRN pain #7 tabs 04/19/24 mg tablet ketorolac 10 mg tablet 10 mg PO TID PRN pain #10 tabs 04/19/24 ondansetron 4 mg disintegrating 4 mg PO Q6H PRN nausea and 04/19/24 tablet vomiting #14 tabs cephalexin 500 mg capsule 500 mg PO TID #30 caps 09/10/24 polyethylene glycol 3350 17 gram 17 g PO DAILY PRN constipation #14 04/26/25 oral powder packet (Miralax) ea Allergies Allergy/AdvReac Type Severity Reaction Status Date / Time No Known Allergies Allergy Verified 09/10/24 15:02 Review of Systems Const: Denies: fever(s), chills, body aches or change in appetite ENMT: Denies: throat pain or dental pain Card: Denies: chest pain Resp: Denies: dyspnea GI: Reports: abdominal pain and constipation; Denies: nausea, vomiting or diarrhea Musc: Denies: neck pain or back pain Skin/Breast: Denies: rash Neuro: Denies: headache(s) PFSH ED PFSH: Medical History Diabetic peripheral neuropathy associated with type 2 diabetes mellitus Psoriasis Hernia Chronic back pain CAD (coronary artery disease) Hypertension Hyperlipidemia History of alcoholism Diabetes Surgical History History of amputation of toe History of appendectomy Hx laparoscopic cholecystectomy Postsurgical percutaneous transluminal coronary angioplasty (PTCA) status Prior to 2006 History of coronary artery bypass graft x 2 2006 Family History Other Family history of premature coronary artery disease Social History Smoking and tobacco/nicotine status: unknown if used tobacco/nicotine Alcohol intake: current Physical Exam Const: COMMON NORMALS: no acute distress, patient oriented x3 and healthy appearing HENMT: COMMON NORMALS: normocephalic and atraumatic HEAD & SCALP: normocephalic and atraumatic Eye: COMMON NORMALS: conjunctivae normal CONJUNCTIVA: Yes conjunctivae normal Neck/C-Spine: COMMON NORMALS: full ROM and supple Chest: COMMONS NORMALS: normal inspection of the chest Resp: COMMON NORMALS: normal respiratory effort, No retractions, No use of accessory muscles and clear to auscultation bilaterally AUSCULTATION: clear to auscultation bilaterally Cardio: COMMON NORMALS: regular rate, regular rhythm and No murmurs present (Cardio) RATE: regular rate RHYTHM: regular rhythm GI: COMMON NORMALS: Normal to inspection, nondistended, normoactive bowel sounds present, Soft to palpation, non-tender and no masses PALPATION: Yes Soft to palpation Extremity: COMMON NORMALS: normal to inspection and full ROM Neuro: COMMON NORMALS: patient oriented x3, moves all extremities and no focal motor deficits Psych: COMMON NORMALS: mental status grossly normal, Normal thought process present and cooperative THOUGHT PROCESS: Normal thought process present Skin: COMMON NORMALS: no rashes or lesions noted and no wounds GENERAL SKIN EXAM: no rashes or lesions noted Course Vital Signs: Vital signs: Vital Signs Temperature 97.8 F 04/26/25 04:17 Pulse Rate 85 04/26/25 08:46 Respiratory Rate 17 04/26/25 05:01 Blood Pressure 134/78 04/26/25 08:46 Pulse Oximetry 95 04/26/25 08:46 Oxygen Delivery Me thod Room Air 04/26/25 06:42 MDM - Abdominal Pain Medical Decision Making Patient presents here with abdominal pain likely from constipation. Does have some diffuse tenderness no specific tenderness on exam. Patient's lab work here is normal white counts normal electrolytes are normal. His x-ray KUB did show constipation patient is pending CT scan patient care turned over to Dr. Velez pending the CT scan. Differential Diagnosis Likely abdominal pain, acute appendicitis, constipation, diverticulitis, gastroenteritis, pancreatitis and small bowel obstruction Medical Records I reviewed the patient's medical records. Lab Data I reviewed the patient's lab results. 04/26/25 05:04 04/26/25 05:04 Labs/Radiology: Radiology Impressions KUB X-Ray 04/26/25 04:23 IMPRESSION: Nonobstructive bowel-gas pattern with colonic stool burden appearing within expected limits. Abdomen/Pelvis CT 04/26/25 04:54 IMPRESSION: 1. No CT evidence of acute abnormality in the abdomen/pelvis. 2. No obstruction, inflammatory mesenteric stranding, or free air. Mild colonic diverticulosis. 3. 6 mm nonobstructive left kidney stone. Additional punctate nonobstructing caliceal stone in the superior left kidney. No obstructing stones, hydronephrosis, or perinephric stranding. 4. Similar 12 mm indeterminate cortical hypodensity in the right kidney, for which further follow up was recommended on recent prior exam. 5. Similar incidental and nonemergent findings are discussed above. COMMENTS: Consistent with the [employer]'s Incidental Findings Committee white paper (J Am Kassandra Radiol 2018): Any incidental renal lesion less than 1 cm or classified as too small to characterize, or any incidental cystic renal lesion characterized as simple-appearing, is likely benign. No follow-up imaging is recommended for these lesions per consensus recommendations based on imaging criteria. Laboratory Results WBC 6.41 10^3/uL (3.29-11.43) 04/26/25 05:04 RBC 4.72 10^6/uL (3.85-5.65) 04/26/25 05:04 Hgb 13.90 g/dL (11.27-16.99) 04/26/25 05:04 Hct 40.3 % (37-53) 04/26/25 05:04 MCV 85.4 fl (82-101) 04/26/25 05:04 MCH 29.4 pg (27-33) 04/26/25 05:04 MCHC 34.5 g/dL (30-55) 04/26/25 05:04 RDW 12.4 % (12.1-15.1) 04/26/25 05:04 Plt Count 280 10^3/cmm (157-399) 04/26/25 05:04 MPV 10.5 fL (7.4-10.4) H 04/26/25 05:04 Neut % (Auto) 69.8 % 04/26/25 05:04 Lymph % (Auto) 17.6 % 04/26/25 05:04 [place] % (Auto) 6.2 % 04/26/25 05:04 Eos % (Auto) 2.5 % 04/26/25 05:04 Baso % (Auto) 0.5 % 04/26/25 05:04 Neut # (Auto) 4.47 10^3/uL (1.8-7.7) 04/26/25 05:04 Lymph # (Auto) 1.1 10^3/uL (0.8-4.8) 04/26/25 05:04 [place] # (Auto) 0.4 10^3/uL (0.2-0.9) 04/26/25 05:04 Eos # (Auto) 0.2 10^3/uL (0.0-0.8) 04/26/25 05:04 Baso # (Auto) 0.0 10^3/uL (0.0-0.1) 04/26/25 05:04 Nucleated RBC % (auto) 0 % 04/26/25 05:04 Nucleated RBCs # 0.0 /100WBC 04/26/25 05:04 Sodium 138 mmol/L (136-145) 04/26/25 05:04 Potassium 4.2 mmol/L (3.5-5.1) 04/26/25 05:04 Chloride 99 mmol/L (98-107) 04/26/25 05:04 Carbon Dioxide 28 mmol/L (22-29) 04/26/25 05:04 Anion Gap 15.2 (5-19) 04/26/25 05:04 BUN 17 mg/dL (8-23) 04/26/25 05:04 Creatinine 0.9 mg/dL (0.7-1.2) 04/26/25 05:04 GFR Calculation 84.4 mL/min (90-130) L 04/26/25 05:04 Glucose 255 mg/dL (65-115) H 04/26/25 05:04 Calculated Osmolality 296 mOsm/kg (285-295) H 04/26/25 05:04 Calcium 8.9 mg/dL (8.5-10.5) 04/26/25 05:04 Total Bilirubin 1.2 mg/dL (0.15-1.2) 04/26/25 05:04 AST 26 U/L (0-40) 04/26/25 05:04 ALT 34 U/L (0-41) 04/26/25 05:04 Alkaline Phosphatase 105 U/L (40-130) 04/26/25 05:04 Total Protein 7.0 g/dL (6.6-8.7) 04/26/25 05:04 Albumin 4.2 g/dL (3.5-5.2) 04/26/25 05:04 Globulin 2.8 g/dL (1.3-4.6) 04/26/25 05:04 Lipase 48 U/L (13-60) 04/26/25 05:04 All radiology interpretation(s) finalized by discharge Discharge Plan Discharge Patient Disposition: Home Clinical Impression: Constipation, Abdominal pain Condition: Stable Prescriptions: New polyethylene glycol 3350 [Miralax] 17 gram powder in packet 17 g PO DAILY PRN (Reason: constipation) Qty: 14 0RF No Action metformin 1,000 mg tablet extended release 24hr PO metformin 500 mg tablet extended release 24 hr 500 mg PO BID carbidopa-levodopa 25-100 mg tablet 1 tab PO TID Qty: 90 5RF (DME) Diabetic shoes with 3 sets of insoles toe filler on the right See Rx Instructions .Route .MEDSUPPLY Qty: 1 0RF Rx Instructions: As directed by the shoe allison cephalexin 500 mg capsule 500 mg PO TID Qty: 30 0RF mupirocin 2 % ointment 1 applic topical BID 14 Days Qty: 22 2RF (DME) OrthoWedge heel shoe to Left and Right Foot See Rx Instructions .Route .MEDSUPPLY Qty: 1 0RF Rx Instructions: As directed [employer] (DME) pen needle, diabetic [BD Ultra-Fine Micro Pen Needle] 32 gauge x 1/4 needle See Rx Instructions .ROUTE .MEDSUPPLY Qty: 50 0RF Rx Instructions: As directed (DME) blood-glucose meter [[employer] Glucose Monitoring] Kit See Rx Instructions .Route Qty: 1 0RF Rx Instructions: As directed hydrocodone-acetaminophen 5-325 mg tablet 1 tab PO Q8H PRN (Reason: pain) Qty: 7 0RF ketorolac 10 mg tablet 10 mg PO TID PRN (Reason: pain) Qty: 10 0RF ondansetron 4 mg tablet,disintegrating 4 mg PO Q6H PRN (Reason: nausea and vomiting) Qty: 14 0RF aspirin 81 mg tablet,delayed release (DR/EC) 81 mg PO EVERY OTHER DAY Discharge Orders: Discharge ED (Routine); Ordered 04/26/25 Ordered By: Drew Velez Referrals: Ginette Johnson FNP [Referring, Nurse Practitioner] - 4-7 days Discharge Diet: Advance as tolerated Discharge Activity: Resume usual activity Patient Instructions: Constipation (ED), Abdominal Pain (ED) Print Language: Burkinan Sign Out Sign Out Data: Patient Sign Out occurred on 04/26/25 at 08:36. Patient's care was discussed, and care was transferred from Annette Still MD to Drew Velez DO. Coding Level of Care Code ED Patrol Inspector for Freddy Ocampo
--- NOTE | 2025-04-26 04:54 | CTR_ITS ---
PROCEDURE INFORMATION: Exam: CT Abdomen And Pelvis With Contrast Exam date and time: 04/26/2025 5:43 AM Age: 64 years old Clinical indication: Abdominal pain; Prior surgery; Surgery date: 6+ months; Surgery type: Appy, ronnie; Additional info: Abd pain TECHNIQUE: Imaging protocol: Computed tomography of the abdomen and pelvis with contrast. Radiation optimization: All CT scans at this facility use at least one of these dose optimization techniques: automated exposure control; mA and/or kV adjustment per patient size (includes targeted exams where dose is matched to clinical indication); or iterative reconstruction. Contrast material: OMNI 350; Contrast volume: 100 ml; Contrast route: INTRAVENOUS (IV); COMPARISON: 1. CT abdomen pelvis w con* [id number] 04/19/2024 3:[address] angio chest PE protcl [id number] 04/29/2023 10:19 AM RADIATION DOSE METRICS: Total DLP (mGy-cm): 821.87 FINDINGS: Lungs: Mild basilar atelectasis. Stable 3 mm pulmonary nodule in the right lower lobe, likely benign given small size and stability. Coronary arteries: Moderate atherosclerotic calcification of the coronary arteries. Liver: The liver appears unremarkable. Gallbladder and biliary ducts: Prior cholecystectomy. No biliary ductal dilatation or mineralized stone seen. Pancreas: The pancreas appears unremarkable. No peripancreatic inflammatory stranding. Spleen: Splenic calcifications, consistent with remote granulomatous organism exposure. Adrenal glands: The adrenal glands are unremarkable. Kidneys and ureters: 6 mm nonobstructive left kidney stone. Additional punctate nonobstructing caliceal stone in the superior left kidney. No obstructing stones, hydronephrosis, or perinephric stranding. Similar 12 mm indeterminate cortical hypodensity in the right kidney, for which further follow up was recommended on recent prior exam. There is a tiny left renal cortical hypodensity that is too small to classify on the current examination, statistically most likely related to a small cyst. No followup is required by imaging criteria. Stomach and bowel: Mild colonic diverticulosis. No evidence of acute diverticulitis at this time. There is no evidence of intestinal perforation or obstruction. Appendix: Appendix is not definitively seen but there is no pericecal inflammatory change. Intraperitoneal space: No significant peritoneal free fluid. No free peritoneal air. Vasculature: No aneurysm or dissection in the visualized aorta. The visualized aorta and vasculature demonstrates moderate atherosclerotic calcification. Lymph nodes: No pathologically enlarged lymph nodes demonstrated. Urinary bladder: The bladder appears unremarkable. Reproductive: The prostate demonstrates nonspecific parenchymal calcifications. Bones/joints: Prior median sternotomy. Similar mild anterior compression deformity in the T12 vertebral body. Soft tissues: Small to moderate fat containing left inguinal hernia. CT/CT abdomen pelvis w con* [id number] IMPRESSION: 1. No CT evidence of acute abnormality in the abdomen/pelvis. 2. No obstruction, inflammatory mesenteric stranding, or free air. Mild colonic diverticulosis. 3. 6 mm nonobstructive left kidney stone. Additional punctate nonobstructing caliceal stone in the superior left kidney. No obstructing stones, hydronephrosis, or perinephric stranding. 4. Similar 12 mm indeterminate cortical hypodensity in the right kidney, for which further follow up was recommended on recent prior exam. 5. Similar incidental and nonemergent findings are discussed above. COMMENTS: Consistent with the [employer]'s Incidental Findings Committee white paper (J Am Kassandra Radiol 2018): Any incidental renal lesion less than 1 cm or classified as too small to characterize, or any incidental cystic renal lesion characterized as simple-appearing, is likely benign. No follow-up imaging is recommended for these lesions per consensus recommendations based on imaging criteria.
[2025-04-26] MEDS: lactulose oral liq 20 gm/30 mL UDC 30 GM PO (05:00)
[2025-04-26] MEDS: ondansetron 2 mg/ML SDV 2 mL 4 MG IVP (05:01)
[2025-04-26] MEDS: morphine 4 mg/mL SDV 1 mL IVP (05:01)
[2025-04-26 05:09] LABS: Hematocrit 40.3 % (37-53); Hemoglobin 13.90 g/dL (11.27-16.99); Mean Corpuscular HGB Conc 34.5 g/dL (30-55); Mean Corpuscular Hemoglobin 29.4 pg (27-33); Mean Corpuscular Volume 85.4 fl (82-101); Nucleated Red Blood Cells % 0 %; Platelet Count 280 10^3/cmm (157-399); Red Blood Count 4.72 10^6/uL (3.85-5.65); White Blood Count 6.41 10^3/uL (3.29-11.43)
[2025-04-26 05:32] LABS: Alanine Aminotransferase 34 U/L (0-41); Albumin Level 4.2 g/dL (3.5-5.2); Alkaline Phosphatase 105 U/L (40-130); Anion Gap 15.2 (5-19); Aspartate Amino Transferase 26 U/L (0-40); Blood Urea Nitrogen 17 mg/dL (8-23); Calcium 8.9 mg/dL (8.5-10.5); Carbon Dioxide 28 mmol/L (22-29); Chloride 99 mmol/L (98-107); Creatinine Clr Calc Pharmacy 94.6095; Globulin 2.8 g/dL (1.3-4.6); Glucose 255 mg/dL (65-115); Lipase 48 U/L (13-60); Osmolality Calculated 296 mOsm/kg (285-295); Potassium 4.2 mmol/L (3.5-5.1); Sodium 138 mmol/L (136-145); Total Protein 7.0 g/dL (6.6-8.7)
[2025-04-26] MEDS: iohexol 350 mg/mL 500 mL Btl (per mL) IV (05:50)
== END 2025-04-26 09:08 | disposition home or self-care (01) ==
PROVIDERS: Emergency Provider Emergency Medicine
DX: K59.00 Constipation, unspecified (principal); R10.9 Unspecified abdominal pain; Z79.84 Long term (current) use of oral hypoglycemic drugs; Z79.82 Long term (current) use of aspirin; E11.42 Type 2 diabetes mellitus with diabetic polyneuropathy; I25.10 Atherosclerotic heart disease of native coronary artery without angina pectoris; E78.5 Hyperlipidemia, unspecified; I10 Essential (primary) hypertension
CPT/HCPCS: 74018; 74177; 80053; 83690; 85025; 96374; 96375; 99285; J2270; J2405; J9999

== ENCOUNTER 2025-05-29 11:56 | Emergency (ER) | payer OTHER, MEDICAID, SELFPAY ==
[2025-05-29 11:58] VITALS: BP 167/94; PULSE 73; RESP 18; TEMP 36.7; O2SAT 97
--- NOTE | 2025-05-29 12:01 | CTR_ITS ---
PROCEDURE INFORMATION: Exam: CT Abdomen And Pelvis With Contrast Exam date and time: 05/29/2025 1:00 PM Age: 64 years old Clinical indication: Abdominal pain; Prior surgery; Surgery date: 6+ months; Surgery type: Appy gb; Additional info: Abd pain TECHNIQUE: Imaging protocol: Computed tomography of the abdomen and pelvis with contrast. Radiation optimization: All CT scans at this facility use at least one of these dose optimization techniques: automated exposure control; mA and/or kV adjustment per patient size (includes targeted exams where dose is matched to clinical indication); or iterative reconstruction. Contrast material: OMNI 350; Contrast volume: 100 ml; Contrast route: INTRAVENOUS (IV); COMPARISON: 1. CT abdomen pelvis w con* [id number] 04/26/2025 5:[address] abdomen pelvis w con* [id number] 04/19/2024 3:40 AM RADIATION DOSE METRICS: Total DLP (mGy-cm): 760.15 FINDINGS: Lungs: There is linear scarring in the left lower lobe. Pleural spaces: No pleural effusion. Heart: Stable mild enlargement of the visualized portions of the heart. Coronary arteries: Stable moderate atherosclerotic calcification in the visualized coronary arteries. Liver: Diffuse, mildly decreased attenuation in the liver. Findings are stable and consistent with mild fatty infiltration. 7.0 mm indeterminate hypodense focus in the right lobe of the liver is stable compared with 04/19/2024. Gallbladder and biliary ducts: Stable findings consistent with a previous cholecystectomy. No biliary ductal dilatation. Pancreas: The pancreas is unremarkable. No pancreatic ductal dilatation. Spleen: Stable calcified granulomas in the spleen. Adrenal glands: The right and left adrenal glands are unremarkable. Kidneys and ureters: Stable subcentimeter hypodense foci in both right and left kidneys that are too small to characterize, however likely represent small cysts. Stable non-obstructing stone in the left kidney measuring 5.8 mm (series 3, image 44). The right and left ureters are unremarkable. Stomach and bowel: Large amount of fecal content in the colon. No acute abnormality in the stomach. No acute abnormality in the small bowel. Appendix: Appendix not definitely visualized. No inflammatory changes in the pericecal region however. Intraperitoneal space: No free intraperitoneal air. No ascites. No loculated fluid collections to suggest an abscess. Vasculature: Moderate atherosclerotic changes in the visualized arteries. No evidence for aortic aneurysm or aortic dissection. Hepatic veins, portal veins, splenic vein, and SMV are patent. Lymph nodes: No lymphadenopathy. Urinary bladder: The bladder is unremarkable for the degree of distension. Reproductive: Nonspecific parenchymal calcifications in the prostate gland. Bones/joints: Degenerative changes in the spine, sacroiliac joints, and hips. Soft tissues: No acute abnormality in the extra-abdominal soft tissues. Left-sided fat containing inguinal hernia. No evidence for strangulation. CT/CT abdomen pelvis w con* [id number] IMPRESSION: 1. Stable mild fatty infiltration of the liver. 2. Stable indeterminate hypodense focus in the liver compared with 04/19/2024. 3. Stable nonobstructing left renal stone. 4. Large amount of fecal content in the colon. 5. Incidental/nonacute findings are listed in the report.
--- OUTSIDE RECORDS SUMMARY | 2025-05-29 12:02 | XMS_ITS | Encounter Summary ---
Author Organization [facility] Address [address] [place] [address] Care Team Providers Care Assistant Finance Manager Name Role Phone Primitivo Crowder MD Primary Care Provider [phone] Encounter Details Date Type Department Care Team (Latest Contact Info) Description 03/06/2007 Outpatient Historical [facility] [address] [place] [phone] Primitivo Crowder MD [address] [place] [address] Dyspepsia and Other Specified Disorders of Function of Stomach (Primary Dx); Nonspecific Abnormal Results of Liver Function Study; Mixed Hyperlipidemia; Abdominal Pain, Unspecified Site Social History Tobacco Use Types Packs/Day Years Used Date Smoking Tobacco: Never Assessed Sex and Gender Information Value Date Recorded Sex Assigned at Not on file 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
--- OUTSIDE RECORDS SUMMARY | 2025-05-29 12:02 | XMS_ITS | Encounter Summary ---
Author Organization [facility] Address [address] [place] [address] Care Team Providers Care Fire Suppression Captain Name Role Phone Primitivo Crowder MD Primary Care Provider [phone] Encounter Details Date Type Department Care Team (Latest Contact Info) Description 05/18/2007 Outpatient Historical [facility] [address] [phone] Primitivo Crowder MD [address] [place] [address] Abdominal Pain, Unspecified Site (Primary Dx); Irritable Bowel Syndrome; Other and Unspecified Hyperlipidemia; Dyspepsia and Other Specified Disorders of Function of Stomach Social History Tobacco Use Types Packs/Day Years Used Date Smoking Tobacco: Never Assessed Sex and Gender Information Value Date Recorded Sex Assigned at Not on file 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
--- OUTSIDE RECORDS SUMMARY | 2025-05-29 12:02 | XMS_ITS | Encounter Summary ---
Author Organization [facility] Address [address] [place] [address] Care Team Providers Care Tying Machine Operator Name Role Phone Primitivo Crowder MD Primary Care Provider [phone] Encounter Details Date Type Department Care Team (Late st Contact Info) Description 08/08/2007 Outpatient Historical [facility] [address] 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
--- OUTSIDE RECORDS SUMMARY | 2025-05-29 12:02 | XMS_ITS | Encounter Summary ---
Author Organization [facility] Address [address] [place] [address] Care Team Providers Care Company Manager Name Role Phone Primitivo Crowder MD Primary Care Provider [phone] Encounter Details Date Type Department Care Team (Late st Contact Info) Description 08/08/2007 Outpatient Historical [address] [facility] [address] [place] [phone] Ed, Physician NO ADDRESS ON FILE Jessica Perdue MD [address] [place] [address] William Ramires MD [address] [address] [place] [phone] Unspecified Chest Pain Social History Tobacco Use Types Packs/Day Years Used Date Smoking Tobacco: Never Assessed Sex and Gender Information Value Date Recorded Sex Assigned at Not on file 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 Gender Identity Not on file Sexual Orientation Not on file documented as of this encounter Plan of Treatment Not on file documented as of this encounter Procedures Procedure Name Priority Date/Time Associated Diagnosis Comments LIPASE Routine 08/10/2007 9:27 AM BRIDGE WORKER APPRENTICE AMYLASE Routine 08/10/2007 9:27 AM BRIDGE WORKER APPRENTICE HEPATIC FUNCTION PANEL Routine 08/10/2007 9:27 AM BRIDGE WORKER APPRENTICE CARDIAC ENZYMES Routine 08/10/2007 1:27 AM BRIDGE WORKER APPRENTICE CK TOTAL, RELATIVE INDEX Routine 08/09/2007 6:21 PM BRIDGE WORKER APPRENTICE CARDIAC ENZYMES Routine 08/09/2007 6:21 PM BRIDGE WORKER APPRENTICE CK Routine 08/09/2007 6:21 PM BRIDGE WORKER APPRENTICE CK TOTAL, RELATIVE INDEX Routine 08/09/2007 12:24 PM BRIDGE WORKER APPRENTICE CARDIAC ENZYMES Routine 08/09/2007 12:24 PM BRIDGE WORKER APPRENTICE CK Routine 08/09/2007 12:24 PM BRIDGE WORKER APPRENTICE BASIC METABOLIC PANEL Routine 08/09/2007 12:24 PM BRIDGE WORKER APPRENTICE CK TOTAL, RELATIVE INDEX Routine 08/09/2007 3:30 AM BRIDGE WORKER APPRENTICE CARDIAC ENZYMES Routine 08/09/2007 3:30 AM BRIDGE WORKER APPRENTICE CK Routine 08/09/2007 3:30 AM BRIDGE WORKER APPRENTICE CARDIAC ENZYMES Routine 08/08/2007 9:20 PM BRIDGE WORKER APPRENTICE CARDIAC ENZYMES Routine 08/08/2007 3:24 PM BRIDGE WORKER APPRENTICE CBC WITH DIFFERENTIAL Routine 08/08/2007 3:24 PM BRIDGE WORKER APPRENTICE PTT Routine 08/08/2007 3:24 PM BRIDGE WORKER APPRENTICE PROTIME-INR Routine 08/08/2007 3:24 PM BRIDGE WORKER APPRENTICE D-DIMER Routine 08/08/2007 3:24 PM BRIDGE WORKER APPRENTICE BASIC METABOLIC PANEL Routine 08/08/2007 3:24 PM BRIDGE WORKER APPRENTICE documented in this encounter Results * LIPASE (08/10/2007 9:27 AM BRIDGE WORKER APPRENTICE) LIPASE 44 6 - 51 U/L INTERFACE SYSTEM 08/10/2007 9:27 AM BRIDGE WORKER APPRENTICE us William Ramires MD CHEMISTRY ORDERABLES Edited Performing Organization Address City/[facility] Phone Number INTERFACE SYSTEM Refer to clinic/hospital department * AMYLASE (08/10/2007 9:27 AM BRIDGE WORKER APPRENTICE) AMYLASE 62 20 - 104 U/L INTERFACE SYSTEM 08/10/2007 9:27 AM BRIDGE WORKER APPRENTICE William Ramires MD CHEMISTRY ORDERABLES Edited Performing Organization Address [facility] Phone Number INTERFACE SYSTEM Refer to clinic/hospital department * (ABNORMAL) HEPATIC FUNCTION PANEL (08/10/2007 9:27 AM BRIDGE WORKER APPRENTICE) TOTAL PROTEIN 7.2 6.3 - 8.2 g/dL INTERFACE SYSTEM ALBUMIN 4.5 3.5 - 5.0 g/dL INTERFACE SYSTEM ALKALINE PHOSPHATASE 61 25 - 100 U/L INTERFACE SYSTEM AST 70(H) 8 - 33 U/L INTERFACE SYSTEM ALT 117(H) 4 - 36 IU/L INTERFACE SYSTEM BILIRUBIN TOTAL 1.1 0.3 - 1.2 mg/dL INTERFACE SYSTEM BILIRUBIN DIRECT 0.2 0.0 - 0.4 mg/dL INTERFACE SYSTEM 08/10/2007 9:27 AM BRIDGE WORKER APPRENTICE Result [facility] us William Ramires MD CHEMISTRY ORDERABLES Edited Performing Organization Address [facility] Phone Number INTERFACE SYSTEM Refer to clinic/hospital department * CARDIAC ENZYMES (08/10/2007 1:27 AM BRIDGE WORKER APPRENTICE) TROPONIN I 1.0 0.0 - 1.3 ng/mL INTERFACE SYSTEM Comment: As of 06 the Troponin Reference Range has changed from 0.0-1.5 ng/ml to 0.0- 1.3 ng/ml due to a change in testing methodology. CKMB 3.2 0.0 - 5.0 ng/mL INTERFACE SYSTEM 08/10/2007 1:27 AM BRIDGE WORKER APPRENTICE us William Ramires MD CHEMISTRY ORDERABLES Edited Performing Organization Address City/[facility]/[employer] Phone Number INTERFACE SYSTEM Refer to clinic/hospital department * CK TOTAL, RELATIVE INDEX (08/09/2007 6:21 PM BRIDGE WORKER APPRENTICE) CK-MB CHEMICAL INDEX 4.1 0.0 - 4.5 INTERFACE SYSTEM 08/09/2007 6:21 PM BRIDGE WORKER APPRENTICE us William Ramires MD CHEMISTRY ORDERABLES Edited Performing Organization Address [facility] Phone Number INTERFACE SYSTEM Refer to clinic/hospital department * CK (08/09/2007 6:21 PM BRIDGE WORKER APPRENTICE) CK 130 38 - 174 U/L INTERFACE SYSTEM Comment:Specimen slightly he molyzed. Slight Lipemia. 08/09/2007 6:21 PM BRIDGE WORKER APPRENTICE us William Ramires MD CHEMISTRY ORDERABLES Edited Performing Organization Address [facility] Phone Number INTERFACE SYSTEM Refer to clinic/hospital department * (ABNORMAL) CARDIAC ENZYMES (08/09/2007 6:21 PM BRIDGE WORKER APPRENTICE) TROPONIN I 1.5(AA) 0.0 - 1.3 ng/mL INTERFACE SYSTEM Comment: As of 06 the Troponin Reference Range has changed from 0.0-1.5 ng/ml to 0.0- 1.3 ng/ml due to a change in testing methodology. Potentially critical/toxic troponin called by dg to Carley WELCH, with verbal read back, at 08/09/07 19:03. CKMB 5.3(H) 0.0 - 5.0 ng/mL INTERFACE SYSTEM 08/09/2007 6:21 PM BRIDGE WORKER APPRENTICE us William Ramires MD CHEMISTRY ORDERABLES Edited Performing Organization Address [facility] Phone Number INTERFACE SYSTEM Refer to clinic/hospital department * (ABNORMAL) CK TOTAL, RELATIVE INDEX (08/09/2007 12:24 PM BRIDGE WORKER APPRENTICE) CK-MB CHEMICAL INDEX 7.2(H) 0.0 - 4.5 INTERFACE SYSTEM 08/09/2007 12:2 4 PM BRIDGE WORKER APPRENTICE William Ramires MD CHEMISTRY ORDERABLES Edited Performing Organization Address [facility] Phone Number INTERFACE SYSTEM Refer to clinic/hospital department * CK (08/09/2007 12:24 PM BRIDGE WORKER APPRENTICE) CK 95 38 - 174 U/L INTERFACE SYSTEM 08/09/2007 12:2 4 PM BRIDGE WORKER APPRENTICE us William Ramires MD CHEMISTRY ORDERABLES Edited Performing Organization Address [facility] Phone Number INTERFACE SYSTEM Refer to clinic/hospital department * (ABNORMAL) CARDIAC ENZYMES (08/09/2007 12:24 PM BRIDGE WORKER APPRENTICE) TROPONIN I 1.4(AA) 0.0 - 1.3 ng/mL INTERFACE SYSTEM Comment: As of 06 the Troponin Reference Range has changed from 0.0-1.5 ng/ml to 0.0- 1.3 ng/ml due to a change in testing methodology. Potentially critical/toxic trop called by magdalene to zhou patino, with verbal read back, at 1307. CKMB 6.8(H) 0.0 - 5.0 ng/mL INTERFACE SYSTEM 08/09/2007 12:2 4 PM BRIDGE WORKER APPRENTICE William Ramires MD CHEMISTRY ORDERABLES Edited Performing Organization Address [facility] Phone Number INTERFACE SYSTEM Refer to clinic/hospital department * BASIC METABOLIC PANEL (08/09/2007 12:24 PM BRIDGE WORKER APPRENTICE) GLUCOSE 102 70 - 110 mg/dL INTERFACE [...] mOsm/Kg INTERFACE SYSTEM 08/09/2007 12:2 4 PM BRIDGE WORKER APPRENTICE William Ramires MD CHEMISTRY ORDERABLES Edited Performing Organization Address City/[facility] Phone Number INTERFACE SYSTEM Refer to clinic/hospital department * CK TOTAL, RELATIVE INDEX (08/09/2007 3:30 AM BRIDGE WORKER APPRENTICE) CK-MB CHEMICAL INDEX 4.0 0.0 - 4.5 INTERFACE SYSTEM 08/09/2007 3:30 AM BRIDGE WORKER APPRENTICE Jessica Perdue MD CHEMISTRY ORDERABLES Edited Performing Organization Address [facility] Phone Number INTERFACE SYSTEM Refer to clinic/hospital department * (ABNORMAL) CK (08/09/2007 3:30 AM BRIDGE WORKER APPRENTICE) CK 192(H) 38 - 174 U/L INTERFACE SYSTEM 08/09/2007 3:30 AM BRIDGE WORKER APPRENTICE Jessica Perdue MD CHEMISTRY ORDERABLES Edited Performing Organization Address [facility] Phone Number INTERFACE SYSTEM Refer to clinic/hospital department * (ABNORMAL) CARDIAC ENZYMES (08/09/2007 3:30 AM BRIDGE WORKER APPRENTICE) TROPONIN I 1.2 0.0 - 1.3 ng/mL INTERFACE SYSTEM Comment: As of 06 the Troponin Reference Range has changed from 0.0-1.5 ng/ml to 0.0- 1.3 ng/ml due to a change in testing methodology. CKMB 7.6(H) 0.0 - 5.0 ng/mL INTERFACE SYSTEM 08/09/2007 3:30 AM BRIDGE WORKER APPRENTICE Jessica Perdue MD CHEMISTRY ORDERABLES Edited Performing Organization Address [facility] Phone Number INTERFACE SYSTEM Refer to clinic/hospital department * CARDIAC ENZYMES (08/08/2007 9:20 PM BRIDGE WORKER APPRENTICE) Pathologist [facility] TROPONIN I 0.4 0.0 - 1.3 ng/mL INTERFACE SYSTEM Comment: As of 06 the Troponin Reference Range has changed from 0.0-1.5 ng/ml to 0.0- 1.3 ng/ml due to a change in testing methodology. CKMB 4.1 0.0 - 5.0 ng/mL INTERFACE SYSTEM 08/08/2007 9:20 PM BRIDGE WORKER APPRENTICE Jessica Perdue MD CHEMISTRY ORDERABLES Edited Performing Organization Address [facility] Phone Number INTERFACE SYSTEM Refer to clinic/hospital department * D-DIMER (08/08/2007 3:24 PM BRIDGE WORKER APPRENTICE) [facility] D-DIMER QUANT 0.2 0.0 - 0.5 mcg/mL [...] within the 95-100% range. 08/08/2007 3:24 PM BRIDGE WORKER APPRENTICE Jessica Perdue MD HEMATOLOGY ORDERABLES Edite d Performing Organization Address [facility] Phone Number INTERFACE SYSTEM Refer to clinic/hospital department * (ABNORMAL) CBC WITH DIFFERENTIAL (08/08/2007 3:24 PM BRIDGE WORKER APPRENTICE) Pathologist [facility] WBC 8.2 4.5 - [...] 0.2 K/ul INTERFACE SYSTEM 08/08/2007 3:24 PM BRIDGE WORKER APPRENTICE Jessica Perdue MD HEMATOLOGY ORDERABLES Edite d Performing Organization Address [facility] Phone Number INTERFACE SYSTEM Refer to clinic/hospital department * PTT (08/08/2007 3:24 PM BRIDGE WORKER APPRENTICE) PTT 26.9 21.6 - 35.6 Secs INTERFACE SYSTEM Comment: Therapeutic Range: Hi-level PE/DVT heparin protocol 80.1 -95.0 sec Lo-level PE/DVT heparin protocol 67.1 - 80.0 sec Cardiac Heparin Protocol 67.1 - 85.0 sec Neuro Heparin Protocol 67.1 - 80.0 sec As of 07/10/2006 note change in APTT Normal Range. 08/08/2007 3:24 PM BRIDGE WORKER APPRENTICE Jessica Perdue MD HEMATOLOGY ORDERABLES Edite d Performing Organization Address [facility] Phone Number INTERFACE SYSTEM Refer to clinic/hospital department * PROTIME-INR (08/08/2007 3:24 PM BRIDGE WORKER APPRENTICE) PROTIME 13.8 12.8 - 15.8 Secs INTERFACE SYSTEM Comment: As of 2007 note change in normal range. INR 1.0 INTERFACE SYSTEM Comment: Expected Values for INR: DVT/PE Goal INR 2.5; range 2.0 - 3.0 Valve Replacement Tissue Goal INR 2.5; range 2.0 - 3.0 Mechanical Goal INR 3.0; range 2.5 - 3.5 POST-ME Goal INR 2.5; range 2.0 - 3.0 or Goal 3.0; range 2.5 - 3.5 Atrial Fibrillation Goal INR 2.5; range 2.0 - 3.0 Ischemic Stroke Goal INR 2.5; range 2.0 - 3.0 For additional information see Guidelines for Anticoagulation available from the pharmacy Hitesh Ye D. 08/08/2007 3:24 PM BRIDGE WORKER APPRENTICE us Jessica Perdue MD HEMATOLOGY ORDERABLES Edite d Performing Organization Address [facility] Phone Number INTERFACE SYSTEM Refer to clinic/hospital department * (ABNORMAL) BASIC METABOLIC PANEL (08/08/2007 3:24 PM BRIDGE WORKER APPRENTICE) GLUCOSE 81 70 - 110 mg/dL INTERFACE [...] 295 mOsm/Kg INTERFACE SYSTEM 08/08/2007 3:24 PM BRIDGE WORKER APPRENTICE us Jessica Perdue MD CHEMISTRY ORDERABLES Edited Performing Organization Address [facility] Phone Number INTERFACE SYSTEM Refer to clinic/hospital department * CARDIAC ENZYMES (08/08/2007 3:24 PM BRIDGE WORKER APPRENTICE) TROPONIN I <0.1 0.0 - 1.3 ng/mL INTERFACE SYSTEM Comment: As of 06 the Troponin Reference Range has changed from 0.0-1.5 ng/ml to 0.0- 1.3 ng/ml due to a change in testing methodology. CKMB 0.3 0.0 - 5.0 ng/mL INTERFACE SYSTEM 08/08/2007 3:24 PM BRIDGE WORKER APPRENTICE us Jessica Perdue MD CHEMISTRY ORDERABLES Edited INTERFACE SYSTEM Refer to clinic/hospital department documented in this encounter Visit Diagnoses Diagnosis Chest pain, unspecified documented in this encounter Care Teams Company Manager Relationship Specialty Start Date End Date Primitivo Crowder MD [address] [place] [phone] PCP - General Family Practice 05/20/14 documented as of this encounter
--- OUTSIDE RECORDS SUMMARY | 2025-05-29 12:02 | XMS_ITS | Encounter Summary ---
Author Organization [facility] Address [address] [place] [address] Care Team Providers Care Asbestos Textile Supervisor Name Role Phone Primitivo Crowder MD Primary Care Provider [phone] Encounter Details Date Type Department Care Team (Latest Contact Info) Description 12/29/1997 Outpatient Historical [facility] Services-[facility] [address] [place] [phone] Lucy Smith MD NO ADDRESS ON FILE Nonspecific (abnormal) findings on radiological and other examination of abdominal area, including retroperitoneum (Primary Dx) Social History Tobacco Use Types Packs/Day Years Used Date Smoking Tobacco: Never Assessed Sex and Gender Information Value Date Recorded Sex Assigned at Not on file Legal Sex Male 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
--- OUTSIDE RECORDS SUMMARY | 2025-05-29 12:02 | XMS_ITS | Encounter Summary ---
Author Organization [facility] Address [address] [place] [address] Care Team Providers Care Car Repairer Name Role Phone Primitivo Crowder MD Primary Care Provider [phone] Encounter Details Date Type Department Care Team (Latest Contact Info) Description 10/01/2005 Outpatient Historical [facility] [address] [phone] Lia Blanco MD [address] [place], [place] [address] HYPERTENSION NOS (Primary Dx); DIZZINESS AND GIDDINESS; CHEST PAIN NOS Social History Tobacco Use Types Packs/Day Years Used Date Smoking Tobacco: Never Assessed Sex and Gender Information Value Date Recorded Sex Assigned at Not on file Legal Sex Male 4:47 AM 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
--- OUTSIDE RECORDS SUMMARY | 2025-05-29 12:02 | XMS_ITS | Encounter Summary ---
Author Organization [facility] Address [address] [place] [address] Care Team Providers Care Bridge Painter Name Role Phone Primitivo Crowder MD Primary Care Provider [phone] Encounter Details Date Type Department Care Team (Latest Contact Info) Description 12/16/2006 Outpatient Historical [facility] [address] 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
--- OUTSIDE RECORDS SUMMARY | 2025-05-29 12:02 | XMS_ITS | Encounter Summary ---
Author Organization [facility] Address [address] [place] [address] Care Team Providers Care Fountain Brush Assembler Name Role Phone Primitivo Crowder MD Primary Care Provider [phone] Encounter Details Date Type Department Care Team (Latest Contact Info) Description 02/05/[address] [facility] Nuclear Med Services-[facility] [place] [address] [place] [address] Primitivo Crowder MD [address] [place] [address] CHEST PAIN NEC (Primary Dx); Pain in limb; HYPERTENSION NOS Social History Tobacco Use Types Packs/Day Years Used Date Smoking Tobacco: Never Assessed Sex and Gender Information Value Date Recorded Sex Assigned at Not on file Legal Sex Male 4:[address] Gender Identity Not on file Sexual Orientation Not on file documented as of this encounter Plan of Treatment Not on file documented as of this encounter Visit Diagnoses Diagnosis Other chest pain- Primary Pain in limb Pain in soft tissues of limb Unspecified essential hypertension documented in this encounter Care Teams Fountain Brush Assembler Relationship Specialty Start Date End Date Primitivo Crowder MD [address] [place] [address] PCP - General Family Practice 05/20/14 documented as of this encounter
--- OUTSIDE RECORDS SUMMARY | 2025-05-29 12:02 | XMS_ITS | Encounter Summary ---
Author Organization [facility] Address [address] [place] [address] Care Team Providers Care Catalogue Compiler Name Role Phone Primitivo Crowder MD Primary Care Provider [phone] Encounter Details Date Type Department Care Team (Latest Contact Info) Description 12/23/1997 Outpatient Historical [facility] Pietro Crystal MD NO ADDRESS ON FILE Abdominal pain, unspecified site (Primary Dx) Social History Tobacco Use Types Packs/Day Years Used Date Smoking Tobacco: Never Assessed Sex and Gender Information Value Date Recorded Sex Assigned at Not on file 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
--- OUTSIDE RECORDS SUMMARY | 2025-05-29 12:02 | XMS_ITS | Encounter Summary ---
Author Organization [facility] Address [address] [place] [address] Care Team Providers Care Oncology Admin Name Role Phone Primitivo Crowder MD Primary Care Provider [phone] Encounter Details Date Type Department Care Team (Latest Contact Info) Description 10/24/2006 Outpatient Historical [facility] [address] 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
--- OUTSIDE RECORDS SUMMARY | 2025-05-29 12:02 | XMS_ITS | Encounter Summary ---
Author Organization [facility] Address [address] [place] [address] Care Team Providers Care Rn Assessment Name Role Phone Primitivo Crowder MD Primary Care Provider [phone] Encounter Details Date Type Department Care Team (Late st Contact Info) Description 11/05/2005 Inpatient Historical HIS IN BED Bernardino Mason MD [address] [facility] [address] [place] [address] Coronary Atherosclerosis of [place] Coronary Artery (Primary Dx) Social History Tobacco Use Types Packs/Day Years Used Date Smoking Tobacco: Never Assessed Sex and Gender Information Value Date Recorded Sex Assigned at Not on file Legal Sex Male 4:47 AM ROLLER STAINER Gender Identity Not on file Sexual Orientation [...] ORDERABLES Final R esult Performing Organization Address [facility] de Phone Number INTERFACE SYSTEM Refer to clinic/hospital department * POC ACTIVATED CLOTTING TIME (11/05/2005 1:14 PM CDT) ACT POC 147 79 - 149 sec INTERFACE SYSTEM 11/05/2005 1:14 PM CDT us Historical Provider POINT OF CARE TESTING Final Result Performing Organization Address [facility] Phone Number INTERFACE SYSTEM Refer to clinic/hospital department * LIPASE (11/05/2005 8:38 AM CDT) Pathologist [facility] LIPASE 35 6 - 51 U/L INTERFACE SYSTEM Comment: As of 05 the [facility] has changed testing methods. The new reference range is 6-51 The old referance range was 23-300 11/05/2005 8:38 AM CDT Historical Provider CHEMISTRY ORDERABLES Final R esult Performing Organization Address [facility] Phone Number INTERFACE SYSTEM Refer to clinic/hospital department * AMYLASE (11/05/2005 8:38 AM CDT) AMYLASE 59 20 - 104 U/L INTERFACE SYSTEM Comment: As of 05 the [facility] has changed testing methods. The new [...] INTERFACE SYSTEM Comment: As of 05 the [facility] has changed testing methods. The new reference range is 25-100 The old referance range was 38-126 AST 24 8 - 33 U/L INTERFACE SYSTEM Comment: As of 05 the [facility] has changed testing methods. The new reference range is 8-33 The old referance range was Males 17-59 Females 14-36 ALT 43(H) 4 - 36 IU/L INTERFACE SYSTEM Comment: As of 05 the [facility] has changed testing methods. The new reference range is 4-36 The old referance range was Males 21-72 Females 9-52 BILIRUBIN TOTAL 1.4(H) 0.3 - 1.2 mg/dL INTERFACE SYSTEM Comment: As of 05 the [facility] has changed testing methods. The new [...] Goal INR 3.0; range 2.5 - 3.5 POST-OR Goal INR 2.5; range 2.0 - 3.0 [...] encounter Visit Diagnoses Diagnosis Coronary atherosclerosis of [place] coronary artery- Primary documented in this encounter Care Teams Rn Assessment Relationship Specialty Start Date End Date Primitivo Crowder MD [address] [place] [phone] PCP - General Family Practice 10/17/14 documented as of this encounter
--- OUTSIDE RECORDS SUMMARY | 2025-05-29 12:02 | XMS_ITS | Encounter Summary ---
Author Organization [facility] Address [address] [place] [address] Care Team Providers Care Florist Manager Name Role Phone Primitivo Crowder MD Primary Care Provider [phone] Encounter Details Date Type Department Care Team (Latest Contact Info) Description 04/18/1998 Outpatient Historical [address] [phone] Primitivo Crowder MD [address] [place] [phone] Acute upper respiratory infections of unspecified site (Primary Dx) Social History Tobacco Use Types Packs/Day Years Used Date Smoking Tobacco: Never Assessed Sex and Gender Information Value Date Recorded Sex Assigned at Not on file 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
--- OUTSIDE RECORDS SUMMARY | 2025-05-29 12:02 | XMS_ITS | Encounter Summary ---
Author Organization [facility] Address [address] [place] [address] Care Team Providers Care Stitch Burnisher Name Role Phone Primitivo Crowder MD Primary Care Provider [phone] Encounter Details Date Type Department Care Team (Latest Contact Info) Description 02/17/2007 Outpatient Historical [facility] [address] [phone] Primitivo Crowder MD [address] [place] [phone] Nonspecific Abnormal Results of Liver Function Study (Primary Dx); Other and Unspecified Hyperlipidemia Social History Tobacco Use Types Packs/Day Years Used Date Smoking Tobacco: Never Assessed Sex and Gender Information Value Date Recorded Sex Assigned at Not on file Legal Sex Male 4:47 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
--- OUTSIDE RECORDS SUMMARY | 2025-05-29 12:02 | XMS_ITS | Encounter Summary ---
Author Organization [facility] Address [address] [place] [address] Care Team Providers Care Roofing Foreman Name Role Phone Primitivo Crowder MD Primary Care Provider [phone] Encounter Details Date Type Department Care Team (Late st Contact Info) Description 12/23/1997 Outpatient Historical [facility] [place] [address] [place] [phone] Social History Tobacco Use Types Packs/Day Years Used Date Smoking Tobacco: Never Assessed Sex and Gender Information Value Date Recorded Sex Assigned at Not on file Legal 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
--- OUTSIDE RECORDS SUMMARY | 2025-05-29 12:02 | XMS_ITS | Encounter Summary ---
Author Organization [facility] Address [address] [place] [address] Care Team Providers Care Facilities Painter Name Role Phone Primitivo Crowder MD Primary Care Provider [phone] Encounter Details Date Type Department Care Team (Latest Contact Info) Description 02/02/2007 Outpatient Historical [facility] [address] [phone] Primitivo Crowder MD [address] [place] [phone] Cardiomyopathy in Other Diseases Classified Elsewhere (CMS/HCC) (Primary Dx); Abdominal Pain, Unspecified Site; Hypercalcemia; Unspecified Chronic Ischemic Heart Disease Social History Tobacco Use Types Packs/Day Years Used Date Smoking Tobacco: Never Assessed Sex and Gender Information Value Date Recorded Sex Assigned at Not on file Legal 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 Gender Identity Not on file Sexual Orientation Not on file documented as of this encounter Plan of Treatment Not on file documented as of this encounter Visit Diagnoses Diagnosis Cardiomyopathy in other diseases classified elsewhere (CMS/HCC)- Primary Cardiomyopathy in other diseases classified elsewhere Abdominal pain, unspecified site Hypercalcemia Chronic ischemic heart disease, unspecified documented in this encounter Care Teams Facilities Painter Relationship Specialty Start Date End Date Primitivo Crowder MD [address] [phone] PCP - General Family Practice 05/20/14 documented as of this encounter
--- OUTSIDE RECORDS SUMMARY | 2025-05-29 12:02 | XMS_ITS | Encounter Summary ---
Author Organization [facility] Address [address] [place] [address] Care Team Providers Care Refrigerator Room Clerk Name Role Phone Primitivo Crowder MD Primary Care Provider [phone] Encounter Details Date Type Department Care Team (Latest Contact Info) Description 01/31/2005 Outpatient Historical [facility] [address] [phone] Primitivo Crowder MD [address] [place] [address] Pain in limb (Primary Dx); ABDOMINAL PAIN LUQ; CHEST PAIN NOS; HYPERTENSION NOS Social History Tobacco Use Types Packs/Day Years Used Date Smoking Tobacco: Never Assessed Sex and Gender Information Value Date Recorded Sex Assigned at Not on file Legal 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
--- OUTSIDE RECORDS SUMMARY | 2025-05-29 12:02 | XMS_ITS | Encounter Summary ---
Author Organization [facility] Address [address] [place] [address] Care Team Providers Care Lan Support Specialist Name Role Phone Primitivo Crowder MD Primary Care Provider [phone] Encounter Details Date Type Department Care Team (Latest Contact Info) Description 03/30/2007 Outpatient Historical [facility] [address] [phone] Primitivo Crowder MD [address] [place] [phone] Abdominal Pain, Unspecified Site (Primary Dx) Social History Tobacco Use Types Packs/Day Years Used Date Smoking Tobacco: Never Assessed Sex and Gender Information Value Date Recorded Sex Assigned at Not on file 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
--- OUTSIDE RECORDS SUMMARY | 2025-05-29 12:02 | XMS_ITS | Encounter Summary ---
Author Organization [facility] Address [address] [place] [address] Care Team Providers Care Envelope Folder Name Role Phone Primitivo Crowder MD Primary Care Provider [phone] Encounter Details Date Type Department Care Team (Late st Contact Info) Description 07/21/2007 Outpatient Historical HIS IN BED Sj Ed, Physician NO ADDRESS ON FILE Indy Bentley MD [address] [place] [phone] William Ramires MD [address] [address] [place] [address] Intermediate Coronary Syndrome (CMS/HCC); Coronary Atherosclerosis of [place] Coronary Artery; Unspecified Essential Hypertension; Other and [...] on file Legal Sex Male 4:47 AM PROFESSOR OF SOCIAL WORK Gender Identity Not on file Sexual Orientation Not on file documented as of this encounter Plan of Treatment Not on file documented as of this encounter Procedures Procedure Name Priority Date/Time Associated Diagnosis Comments LIPID PANEL Routine 07/22/2007 5:53 AM PROFESSOR OF SOCIAL WORK COMPREHENSIVE METABOLIC PANEL Routine 07/22/2007 5:53 AM PROFESSOR OF SOCIAL WORK CARDIAC ENZYMES Routine 07/22/2007 1:30 AM PROFESSOR OF SOCIAL WORK CARDIAC ENZYMES Routine 07/21/2007 6:17 PM PROFESSOR OF SOCIAL WORK LIPASE Routine 07/21/2007 6:17 PM PROFESSOR OF SOCIAL WORK AMYLASE Routine 07/21/2007 6:17 PM PROFESSOR OF SOCIAL WORK CARDIAC ENZYMES Routine 07/21/2007 12:32 PM PROFESSOR OF SOCIAL WORK CBC WITH DIFFERENTIAL Routine 07/21/2007 12:32 PM PROFESSOR OF SOCIAL WORK PTT Routine 07/21/2007 12:32 PM PROFESSOR OF SOCIAL WORK PROTIME-INR Routine 07/21/2007 12:32 PM PROFESSOR OF SOCIAL WORK BASIC METABOLIC PANEL Routine 07/21/2007 12:32 PM PROFESSOR OF SOCIAL WORK documented in this encounter Results * (ABNORMAL) LIPID PANEL (07/22/2007 5:53 AM PROFESSOR OF SOCIAL WORK) CHOLESTEROL 231(H) 75 - 200 mg/dL INTERFACE SYSTEM HDL 26(L) 40 - 60 mg/dL INTERFACE SYSTEM CALCULATED LDL CHOLESTEROL see comment 0 - 130 mg/dL INTERFACE SYSTEM Comment:Triglycerides >400 m g/dl; LDL calculation invalid TRIGLYCERIDE 764(H) 0 - 179 mg/dL INTERFACE SYSTEM CALCULATED TOTAL CHOLESTEROL TO HDL RATIO 8.88(H) 3.43 - 4.97 INTERFACE SYSTEM 07/22/2007 5:53 AM PROFESSOR OF SOCIAL WORK us William Ramires MD CHEMISTRY ORDERABLES Edited INTERFACE SYSTEM Refer to clinic/hospital department * (ABNORMAL) COMPREHENSIVE METABOLIC PANEL (07/22/2007 5:53 AM PROFESSOR OF SOCIAL WORK) GLUCOSE 105 70 - 110 mg/dL INTERFACE [...] 295 mOsm/Kg INTERFACE SYSTEM 07/22/2007 5:53 AM PROFESSOR OF SOCIAL WORK William Ramires MD CHEMISTRY ORDERABLES Edited Performing Organization Address [facility] Phone Number INTERFACE SYSTEM Refer to clinic/hospital department * CARDIAC ENZYMES (07/22/2007 1:30 AM PROFESSOR OF SOCIAL WORK) TROPONIN I 0.3 0.0 - 1.3 ng/mL INTERFACE SYSTEM CKMB 1.9 0.0 - 5.0 ng/mL INTERFACE SYSTEM 07/22/2007 1:30 AM PROFESSOR OF SOCIAL WORK Indy Bentley MD CHEMISTRY ORDERABLES Edited Performing Organization Address [facility] Phone Number INTERFACE SYSTEM Refer to clinic/hospital department * LIPASE (07/21/2007 6:17 PM PROFESSOR OF SOCIAL WORK) LIPASE 43 6 - 51 U/L INTERFACE SYSTEM 07/21/2007 6:17 PM PROFESSOR OF SOCIAL WORK William Ramires MD CHEMISTRY ORDERABLES Edited Performing Organization Address [facility] Phone Number INTERFACE SYSTEM Refer to clinic/hospital department * AMYLASE (07/21/2007 6:17 PM PROFESSOR OF SOCIAL WORK) AMYLASE 50 20 - 104 U/L INTERFACE SYSTEM 07/21/2007 6:17 PM PROFESSOR OF SOCIAL WORK us William Ramires MD CHEMISTRY ORDERABLES Edited INTERFACE SYSTEM Refer to clinic/hospital department * CARDIAC ENZYMES (07/21/2007 6:17 PM PROFESSOR OF SOCIAL WORK) TROPONIN I 0.9 0.0 - 1.3 ng/mL INTERFACE SYSTEM CKMB 2.9 0.0 - 5.0 ng/mL INTERFACE SYSTEM 07/21/2007 6:17 PM PROFESSOR OF SOCIAL WORK us Indy Bentley MD CHEMISTRY ORDERABLES Edited INTERFACE SYSTEM Refer to clinic/hospital department * (ABNORMAL) CBC WITH DIFFERENTIAL (07/21/2007 12:32 PM PROFESSOR OF SOCIAL WORK) WBC 10.4 4.5 - 11.0 K/ul INTERFACE [...] K/ul INTERFACE SYSTEM 07/21/2007 12:3 2 PM PROFESSOR OF SOCIAL WORK us Indy Bentley MD HEMATOLOGY ORDERABLES Edited Performing Organization Address [facility] Phone Number INTERFACE SYSTEM Refer to clinic/hospital department * PTT (07/21/2007 12:32 PM PROFESSOR OF SOCIAL WORK) PTT 25.3 21.6 - 35.6 Secs INTERFACE SYSTEM 07/21/2007 12:3 2 PM PROFESSOR OF SOCIAL WORK Indy Bentley MD HEMATOLOGY ORDERABLES Edited Performing Organization Address [facility] Phone Number INTERFACE SYSTEM Refer to clinic/hospital department * PROTIME-INR (07/21/2007 12:32 PM PROFESSOR OF SOCIAL WORK) PROTIME 14.2 13.0 - 15.7 Secs INTERFACE SYSTEM INR 1.0 INTERFACE SYSTEM 07/21/2007 12:3 2 PM PROFESSOR OF SOCIAL WORK Indy Bentley MD HEMATOLOGY ORDERABLES Edited Performing Organization Address [facility] Phone Number INTERFACE SYSTEM Refer to clinic/hospital department * (ABNORMAL) BASIC METABOLIC PANEL (07/21/2007 12:32 PM PROFESSOR OF SOCIAL WORK) GLUCOSE 128(H) 70 - 110 mg/dL INTERFACE [...] mOsm/Kg INTERFACE SYSTEM 07/21/2007 12:3 2 PM PROFESSOR OF SOCIAL WORK Indy Bentley MD CHEMISTRY ORDERABLES Edited INTERFACE SYSTEM Refer to clinic/hospital department * CARDIAC ENZYMES (07/21/2007 12:32 PM PROFESSOR OF SOCIAL WORK) TROPONIN I 0.1 0.0 - 1.3 ng/mL INTERFACE SYSTEM CKMB 0.5 0.0 - 5.0 ng/mL INTERFACE SYSTEM 07/21/2007 12:3 2 PM PROFESSOR OF SOCIAL WORK Indy Bentley MD CHEMISTRY ORDERABLES Edited INTERFACE SYSTEM Refer to clinic/hospital department documented in this encounter Visit Diagnoses Diagnosis Intermediate coronary syndrome Coronary atherosclerosis of [place] coronary artery Unspecified essential hypertension Other and unspecified hyperlipidemia Pure hypercholesterolemia Type II or unspecified type diabetes mellitus without mention of complication, not stated as uncontrolled Tobacco use disorder Other psoriasis Alcohol abuse, unspecified Postsurgical percutaneous transluminal coronary angioplasty status documented in this encounter Care Teams Envelope Folder Relationship Specialty Start Date End Date Primitivo Crowder MD [address] [place] [address] PCP - General Family Practice 05/20/14 documented as of this encounter
--- OUTSIDE RECORDS SUMMARY | 2025-05-29 12:02 | XMS_ITS | Encounter Summary ---
Author Organization [facility] Address [address] [place] [address] Care Team Providers Care House Parent Name Role Phone Primitivo Crowder MD Primary Care Provider [phone] Encounter Details Date Type Department Care Team (Late st Contact Info) Description 10/24/2006 Inpatient Historical HIS IN BED William Ramires MD [address] [address] [place] [phone] Dyspepsia and Other Specified Disorders of Function of Stomach (Primary Dx) Social History Tobacco Use Types Packs/Day Years Used Date Smoking Tobacco: Never Assessed Sex and Gender Information Value Date Recorded Sex Assigned at Not on file Legal Sex Male 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 Gender Identity Not on file Sexual Orientation [...] HEMATOLOGY ORDERABLES Edite d Performing Organization Address [facility] Phone Number INTERFACE SYSTEM Refer [...] MD CHEMISTRY ORDERABLES Edited Performing Organization Address [facility] Phone Number INTERFACE [...] HEMATOLOGY ORDERABLES Edite d Performing Organization Address [facility] Phone Number INTERFACE SYSTEM Refer to clinic/hospital department * CARDIAC ENZYMES (10/24/2006 10:14 PM CDT) TROPONIN I 0.2 0.0 - 1.5 ng/mL INTERFACE SYSTEM CKMB 2.6 0.0 - 5.0 ng/mL INTERFACE SYSTEM 10/24/2006 10:1 4 PM CDT Physician Sj Ed CHEMISTRY ORDERABLES Edited Performing Organization Address [facility] Phone Number INTERFACE SYSTEM Refer to [...] HEMATOLOGY ORDERABLES Edite d Performing Organization Address [facility] Phone Number INTERFACE SYSTEM Refer [...] By: Davina Devine M.D. Date Signed: 10/24/06 [facility] Procedure Note 06/24/2009 No prior studies. Heart size is normal. Few calcified perihilar lymph nodes. No infiltratesor effusions. Impression: 1. No infiltrates. - Dictated By: Davina Devine M.D. Electronically Signed By: Davina Devine M.D. Date Signed: 10/24/06 [facility] Physician Ed DIAGNOSTIC IMAGING ORDERABLES Fi nal [...] Ed HEMATOLOGY ORDERABLES Edited Performing Organization Address [facility] de Phone Number INTERFACE SYSTEM [...] Ed HEMATOLOGY ORDERABLES Edited Performing Organization Address [facility] de Phone Number INTERFACE SYSTEM [...] Goal INR 3.0; range 2.5 - 3.5 POST-PA Goal INR 2.5; range 2.0 - 3.0 or Goal 3.0; range 2.5 - 3.5 Atrial Fibrillation Goal INR 2.5; range 2.0 - 3.0 Ischemic Stroke Goal INR 2.5; range 2.0 - 3.0 For additional information see Guidelines for Anticoagulation available from the pharmacy Nae Nguyen, Pharm D. 10/24/2006 10:1 8 AM CDT Physician Ed HEMATOLOGY ORDERABLES Edited Performing Organization Address [facility] Phone Number INTERFACE [...] Ed CHEMISTRY ORDERABLES Edited Performing Organization Address [facility] Phone Number INTERFACE SYSTEM Refer to clinic/hospital department * CARDIAC ENZYMES (10/24/2006 10:18 AM CDT) TROPONIN I <0.1 0.0 - 1.5 ng/mL INTERFACE SYSTEM CKMB 0.7 0.0 - 5.0 ng/mL INTERFACE SYSTEM 10/24/2006 10:1 8 AM CDT Physician Ed CHEMISTRY ORDERABLES Edited Performing Organization Address [facility] Phone Number INTERFACE SYSTEM Refer to clinic/hospital department documented in this encounter Visit Diagnoses Diagnosis Dyspepsia and other specified disorders of function of stomach- Primary documented in this encounter Care Teams House Parent Relationship Specialty Start Date End Date Primitivo Crowder MD [address] [place] [address] PCP - General Family Practice 05/20/14 documented as of this encounter
--- OUTSIDE RECORDS SUMMARY | 2025-05-29 12:02 | XMS_ITS | Encounter Summary ---
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
--- OUTSIDE RECORDS SUMMARY | 2025-05-29 12:02 | XMS_ITS | Encounter Summary ---
Author Organization [facility] Address [address] [place] [address] Care Team Providers Care Supercharge Repair Supervisor Name Role Phone Primitivo Crowder MD Primary Care Provider [phone] Encounter Details Date Type Department Care Team (Latest Contact Info) Description 11/27/2005 Outpatient Historical [facility] Cardiology- Michelle [address] [place] [address] William Ramires [place] [address] [address] [place] [address] Unspecified Essential Hypertension (Primary Dx); Coronary Atherosclerosis of [place] Coronary Artery; Pure Hypercholesterolem; Unspecified Chest Pain Social History Tobacco Use Types Packs/Day Years Used Date Smoking Tobacco: Never Assessed Sex and Gender Information Value Date Recorded Sex Assigned at Not on file 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
--- OUTSIDE RECORDS SUMMARY | 2025-05-29 12:02 | XMS_ITS | Encounter Summary ---
Author Organization [facility] Address [address] [place] [address] Care Team Providers Care Audit Practice Intern Name Role Phone Primitivo Crowder MD Primary Care Provider [phone] Encounter Details Date Type Department Care Team (Latest Contact Info) Description 04/07/2007 Outpatient Historical [facility] Imaging Services-[facility] [address] [place] [address] Primitivo Crowder MD [address] [place] [address] Unilat Ing Hernia (Primary Dx) Social History Tobacco Use Types Packs/Day Years Used Date Smoking Tobacco: Never Assessed Sex and Gender Information Value Date Recorded Sex Assigned at Not on file Legal 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
--- OUTSIDE RECORDS SUMMARY | 2025-05-29 12:02 | XMS_ITS | Encounter Summary ---
Author Organization [facility] Address [address] [place] [address] Care Team Providers Care E Learning Coordinator Name Role Phone Primitivo Crowder MD Primary Care Provider [phone] Encounter Details Date Type Department Care Team (Latest Contact Info) Description 11/01/2005 Outpatient Historical [facility] Cardiology- Michelle [address] [place] [address] William Ramires MD [address] [address] [place] [address] Other and Unspecified Hyperlipidemia (Primary Dx); Precordial Pain; Other Dyspnea and Respiratory Abnormality; Undiagnosed Cardiac Murmurs Social History Tobacco Use Types Packs/Day Years Used Date Smoking Tobacco: Never Assessed Sex and Gender Information Value Date Recorded Sex Assigned at Not on file Legal 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
--- OUTSIDE RECORDS SUMMARY | 2025-05-29 12:02 | XMS_ITS | Encounter Summary ---
Author Organization [facility] Address [address] [place] [address] Care Team Providers Care Housekeeping/Laundry Name Role Phone Primitivo Crowder MD Primary Care Provider [phone] Encounter Details Date Type Department Care Team (Latest Contact Info) Description 10/04/1997 Outpatient Historical [facility] [address] [place] [phone] Bro Gao MD [address] [place] [address] Esophagitis, unspecified (Primary Dx); Irritable bowel syndrome Social History Tobacco Use Types Packs/Day Years Used Date Smoking Tobacco: Never Assessed Sex and Gender Information Value Date Recorded Sex Assigned at Not on file Legal 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
--- OUTSIDE RECORDS SUMMARY | 2025-05-29 12:02 | XMS_ITS | Encounter Summary ---
Author Organization [facility] Address [address] [place] [address] Care Team Providers Care Drop Wire Hanger Name Role Phone Primitivo Crowder MD Primary Care Provider [phone] Encounter Details Date Type Department Care Team (Latest Contact Info) Description 09/08/1997 Outpatient Historical [facility] [address] [place] [address] Bro Gao MD [address] [place] [address] Esophagitis, unspecified (Primary Dx); Irritable bowel syndrome Social History Tobacco Use Types Packs/Day Years Used Date Smoking Tobacco: Never Assessed Sex and Gender Information Value Date Recorded Sex Assigned at Not on file Legal Sex Male 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
--- OUTSIDE RECORDS SUMMARY | 2025-05-29 12:02 | XMS_ITS | Encounter Summary ---
Author Organization [facility] Address [address] [place] [address] Care Team Providers Care Pony Ride Attendant Name Role Phone Primitivo Crowder MD Primary Care Provider [phone] Encounter Details Date Type Department Care Team (Latest Contact Info) Description 02/05/2005 Outpatient Historical [facility] [address] [place] [address] Brian Sears MD [address] [place] [address] PRECORDIAL PAIN (Primary Dx) Social History Tobacco Use Types Packs/Day Years Used Date Smoking Tobacco: Never Assessed Sex and Gender Information Value Date Recorded Sex Assigned at Not on file Legal Sex Male 4:47 AM PHYSICAL 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
--- OUTSIDE RECORDS SUMMARY | 2025-05-29 12:03 | XMS_ITS | Encounter Summary ---
Author Organization [facility] Address [address] [place] [address] Care Team Providers Care Household Appliance Repairer Name Role Phone Primitivo Crowder MD Primary Care Provider [phone] Encounter Details Date Type Department Care Team (Latest Contact Info) Description 06/20/1999 Outpatient Historical [facility] Medicine [place] [address] [place] [phone] Mg Young MD [address] [place] [address] Unspecified essential hypertension (Primary Dx); Cervicalgia Social History Tobacco Use Types Packs/Day Years Used Date Smoking Tobacco: Never Assessed Sex and Gender Information Value Date Recorded Sex Assigned at Not on file Legal Sex Male 4:47 AM ASSAYER HELPER Gender Identity Not on file Sexual Orientation Not on file documented as of this encounter Plan of Treatment Not on file documented as of this encounter Visit Diagnoses Diagnosis Unspecified essential hypertension- Primary Cervicalgia documented in this encounter Care Teams Household Appliance Repairer Relationship Specialty Start Date End Date Primitivo Crowder MD [address] [place] [phone] PCP - General Family Practice 05/20/14 documented as of this encounter
--- OUTSIDE RECORDS SUMMARY | 2025-05-29 12:03 | XMS_ITS | Encounter Summary ---
Author Organization [facility] Address [address] [place] [address] Care Team Providers Care Call Center Rn Name Role Phone Primitivo Crowder MD Primary Care Provider [phone] Encounter Details Date Type Department Care Team (Latest Contact Info) Description 07/13/1999 Outpatient Historical [facility] [address] [phone] Primitivo Crowder MD [address] [place] [address] Other and unspecified hyperlipidemia (Primary Dx) Social History Tobacco Use Types Packs/Day Years Used Date Smoking Tobacco: Never Assessed Sex and Gender Information Value Date Recorded Sex Assigned at Not on file 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
--- OUTSIDE RECORDS SUMMARY | 2025-05-29 12:03 | XMS_ITS | Encounter Summary ---
Author Organization [facility] Address [address] [place] [address] Care Team Providers Care Manager Games Name Role Phone Primitivo Crowder MD Primary Care Provider [phone] Encounter Details Date Type Department Care Team (Late st Contact Info) Description 09/15/2007 Outpatient Historical [facility] [address] 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
--- OUTSIDE RECORDS SUMMARY | 2025-05-29 12:03 | XMS_ITS | Encounter Summary ---
Author Organization [facility] Address [address] [place] [address] Care Team Providers Care Senior Naval Parachutist Name Role Phone Primitivo Crowder MD Primary Care Provider [phone] Encounter Details Date Type Department Care Team (Late st Contact Info) Description 10/01/2007 Outpatient Historical [facility] [address] 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
--- OUTSIDE RECORDS SUMMARY | 2025-05-29 12:03 | XMS_ITS | Encounter Summary ---
Author Organization [facility] Address [address] [place] [address] Care Team Providers Care Rehab Aide Name Role Phone Primitivo Crowder MD Primary Care Provider [phone] Encounter Details Date Type Department Care Team (Latest Contact Info) Description 12/27/1998 Outpatient Historical [facility] [address] [phone] Primitivo Crowder MD [address] [place] [address] Unspecified essential hypertension (Primary Dx); Other and unspecified hyperlipidemia; Other convulsions Social History Tobacco Use Types Packs/Day Years Used Date Smoking Tobacco: Never Assessed Sex and Gender Information Value Date Recorded Sex Assigned at Not on file Legal 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
--- OUTSIDE RECORDS SUMMARY | 2025-05-29 12:03 | XMS_ITS | Encounter Summary ---
Author Organization [facility] Address [address] [place] [address] Care Team Providers Care Aerodynamic Consultant Name Role Phone Primitivo Crowder MD Primary Care Provider [phone] Encounter Details Date Type Department Care Team (Latest Contact Info) Description 05/08/1999 Outpatient Historical [facility] [address] [phone] Primitivo Crowder MD [address] [place] [address] Other and unspecified hyperlipidemia (Primary Dx) Social History Tobacco Use Types Packs/Day Years Used Date Smoking Tobacco: Never Assessed Sex and Gender Information Value Date Recorded Sex Assigned at Not on file Legal Sex Male 4: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
--- OUTSIDE RECORDS SUMMARY | 2025-05-29 12:03 | XMS_ITS | Encounter Summary ---
Author Organization [facility] Address [address] [place] [address] Care Team Providers Care Case Therapist Name Role Phone Primitivo Crowder MD Primary Care Provider [phone] Encounter Details Date Type Department Care Team (Late st Contact Info) Description 08/12/2007 Outpatient Historical [facility]MISS[facility] Bertin Uriarte MD NO ADDRESS ON FILE Social History Tobacco Use Types Packs/Day Years Used Date Smoking Tobacco: Never Assessed Sex and Gender Information Value Date Recorded Sex Assigned at Not on file Legal Sex Male 4:47 AM ROUSTABOUT HEAD Gender Identity Not on file Sexual Orientation Not on file documented as of this encounter Plan of Treatment Not on file documented as of this encounter Visit Diagnoses Not on filedocumented in this encounter Care Teams Case Therapist Relationship Specialty Start Date End Date Primitivo Crowder MD [address] [place] [address] PCP - General Family Practice 05/20/14 documented as of this encounter
--- OUTSIDE RECORDS SUMMARY | 2025-05-29 12:03 | XMS_ITS | Encounter Summary ---
Author Organization [facility] Address [address] [place] [address] Care Team Providers Care Marketing Communications Manager Name Role Phone Primitivo Crowder MD Primary Care Provider [phone] Encounter Details Date Type Department Care Team (Latest Contact Info) Description 09/26/1999 Outpatient Historical [address] [phone] Primitivo Crowder MD [address] [place] [phone] Unspecified essential hypertension (Primary Dx); Other and unspecified hyperlipidemia; Hyperpotassemia; Other malaise and fatigue Social History Tobacco Use Types Packs/Day Years Used Date Smoking Tobacco: Never Assessed Sex and Gender Information Value Date Recorded Sex Assigned at Not on file Legal Sex Male 4:47 AM 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
--- OUTSIDE RECORDS SUMMARY | 2025-05-29 12:03 | XMS_ITS | Encounter Summary ---
Author Organization [facility] Address [address] [place] [address] Care Team Providers Care Photogrammetric Engineer Name Role Phone Primitivo Crowder MD Primary Care Provider [phone] Encounter Details Date Type Department Care Team (Latest Contact Info) Description 08/25/1998 Outpatient Historical [facility] [address] [phone] Primitivo Crowder MD [address] [place] [address] Other and unspecified hyperlipidemia (Primary Dx); Dizziness and giddiness Social History Tobacco Use Types Packs/Day Years Used Date Smoking Tobacco: Never Assessed Sex and Gender Information Value Date Recorded Sex Assigned at Not on file Legal Sex Male 4:47 AM EVENT STAFF Gender Identity Not on file Sexual Orientation Not on file documented as of this encounter Plan of Treatment Not on file documented as of this encounter Visit Diagnoses Diagnosis Other and unspecified hyperlipidemia- Primary Dizziness and giddiness documented in this encounter Care Teams Photogrammetric Engineer Relationship Specialty Start Date End Date Primitivo Crowder MD [address] [phone] PCP - General Family Practice 05/20/14 documented as of this encounter
--- OUTSIDE RECORDS SUMMARY | 2025-05-29 12:03 | XMS_ITS | Encounter Summary ---
Author Organization [facility] Address [address] [place] [address] Care Team Providers Care Continuous Miner Operator Helper Name Role Phone Primitivo Crowder MD Primary Care Provider [phone] Encounter Details Date Type Department Care Team (Latest Contact Info) Description 01/11/2000 Outpatient Historical [address] [phone] Primitivo Crowder MD [address] [place] [address] Unspecified disorder of lipoid metabolism (Primary Dx) Social History Tobacco Use Types Packs/Day Years Used Date Smoking Tobacco: Never Assessed Sex and Gender Information Value Date Recorded Sex Assigned at Not on file Legal Sex Male 4:47 AM DEPENDENCY CASE MANAGER Gender Identity Not on file Sexual Orientation Not on file documented as of this encounter Plan of Treatment Not on file documented as of this encounter Visit Diagnoses Diagnosis Unspecified disorder of lipoid metabolism- Primary documented in this encounter Care Teams Continuous Miner Operator Helper Relationship Specialty Start Date End Date Primitivo Crowder MD [address] [phone] PCP - General Family Practice 05/20/14 documented as of this encounter
--- OUTSIDE RECORDS SUMMARY | 2025-05-29 12:03 | XMS_ITS | Encounter Summary ---
Author Organization [facility] Address [address] [place] [address] Care Team Providers Care Machine Adjuster Name Role Phone Primitivo Crowder MD Primary Care Provider [phone] Encounter Details Date Type Department Care Team (Latest Contact Info) Description 09/24/1999 Outpatient Historical [facility] [address] [phone] Primitivo Crowder MD [address] [place] [phone] Unspecified endocrine disorder (Primary Dx); Swelling, mass, or lump in head and neck; Myalgia and myositis, unspecified Social History Tobacco Use Types Packs/Day Years Used Date Smoking Tobacco: Never Assessed Sex and Gender Information Value Date Recorded Sex Assigned at Not on file 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
--- OUTSIDE RECORDS SUMMARY | 2025-05-29 12:03 | XMS_ITS | Encounter Summary ---
Author Organization [facility] Address [address] [place] [address] Care Team Providers Care Tubular Riveter Name Role Phone Primitivo Crowder MD Primary Care Provider [phone] Encounter Details Date Type Department Care Team (Latest Contact Info) Description 10/04/1998 Outpatient Historical [facility] Medicine [address] [phone] Primitivo Crowder MD [address] [place] [phone] Pure hyperglyceridemia (Primary Dx); Unspecified essential hypertension Social History Tobacco Use Types Packs/Day Years Used Date Smoking Tobacco: Never Assessed Sex and Gender Information Value Date Recorded Sex Assigned at Not on file 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
--- OUTSIDE RECORDS SUMMARY | 2025-05-29 12:03 | XMS_ITS | Encounter Summary ---
Author Organization [facility] Address [address] [place] [address] Care Team Providers Care Investor Relations Coordinator Name Role Phone Primitivo Crowder MD Primary Care Provider [phone] Encounter Details Date Type Department Care Team (Latest Contact Info) Description 01/24/2000 Outpatient Historical [facility] [address] [phone] Primitivo Crowder MD [address] [place] [address] Abdominal pain, unspecified site (Primary Dx); Nonspecific abnormal results of liver function study; Pure hypercholesterolem Social History Tobacco Use Types Packs/Day Years Used Date Smoking Tobacco: Never Assessed Sex and Gender Information Value Date Recorded Sex Assigned at Not on file 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
--- OUTSIDE RECORDS SUMMARY | 2025-05-29 12:03 | XMS_ITS | Encounter Summary ---
Author Organization [facility] Address [address] [place] [address] Care Team Providers Care Radio Installer Name Role Phone Primitivo Crowder MD Primary Care Provider Encounter Details Date Type Department Care Team (Latest Contact Info) Description 10/18/1998 Outpatient Historical [facility] [address] [phone] Primitivo Crowder MD [address] [place] [phone] Pure hyperglyceridemia (Primary Dx); Unspecified essential hypertension Social History Tobacco Use Types Packs/Day Years Used Date Smoking Tobacco: Never Assessed Sex and Gender Information Value Date Recorded Sex Assigned at Not on file 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
--- OUTSIDE RECORDS SUMMARY | 2025-05-29 12:03 | XMS_ITS | Encounter Summary ---
Author Organization [facility] Address [address] [place] [address] Care Team Providers Care Textile Coating Machine Operator Name Role Phone Primitivo Crowder MD Primary Care Provider [phone] Encounter Details Date Type Department Care Team (Late st Contact Info) Description 08/30/2007 Outpatient Historical [facility] [address] 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
--- OUTSIDE RECORDS SUMMARY | 2025-05-29 12:03 | XMS_ITS | Encounter Summary ---
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 He did have a [facility] on 08/31 for a ???hard [...] lab before that visit. Primitivo Crowder M.D. [facility] Electronically Signed by Primitivo Crowder M.D. 09/28/2007 11:40 , A, [id number] Document #: [id number] cc: [place] CREWMAN MISSION SUPPORT documented in this encounter Plan of Treatment Not on file documented as of this encounter Visit Diagnoses Not on filedocumented in this encounter Care Teams Briar Wood Sorter Relationship Specialty Start Date End Date Primitivo Crowder MD [address] [place] [address] PCP - General Family Practice 05/20/14 documented as of this encounter
--- OUTSIDE RECORDS SUMMARY | 2025-05-29 12:03 | XMS_ITS | Encounter Summary ---
Author Organization [facility] Address [address] [place] [address] Care Team Providers Care Technical Operator Name Role Phone Primitivo Crowder MD Primary Care Provider [phone] Encounter Details Date Type Department Care Team (Late st Contact Info) Description 11/13/2007 Outpatient Historical [facility] [place] [address] [place] [phone] Primitivo Crowder MD [address] [place] [address] Social History Tobacco Use Types Packs/Day Years Used Date Smoking Tobacco: Never Assessed Sex and Gender Information Value Date Recorded Sex Assigned at Not on file 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 There is no evidence [...] on filedocumented in this encounter Care Teams Technical Operator Relationship Specialty Start Date End Date Primitivo Crowder MD [address], [place] [address] PCP - General Family Practice 05/20/14 documented as of this encounter
--- OUTSIDE RECORDS SUMMARY | 2025-05-29 12:03 | XMS_ITS | Encounter Summary ---
Author Organization [facility] Address [address] [facility] Attn: [place] [id number] Care Team Providers Care Bolt Sorter Name Role Phone Primitivo Crowder MD Primary Care Provider [phone] Encounter Details Date Type Department Care Team (Late st Contact Info) Description 04/14/2000 Outpatient Historical [facility] Phys[facility] NO ADDRESS ON FILE Primitivo Crowder MD [address] [place] [address] Social History Tobacco Use Types Packs/Day Years Used Date Smoking Tobacco: Never Assessed Sex and Gender Information Value Date Recorded Sex Assigned at Not on file 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
--- OUTSIDE RECORDS SUMMARY | 2025-05-29 12:03 | XMS_ITS | Encounter Summary ---
Author Organization [facility] Address [address] [place] [address] Care Team Providers Care Hot Car Operator Name Role Phone Primitivo Crowder MD Primary Care Provider Encounter Details Date Type Department Care Team (Late st Contact Info) Description 07/21/2007 Outpatient Historical [facility] [address] 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
--- OUTSIDE RECORDS SUMMARY | 2025-05-29 12:03 | XMS_ITS | Encounter Summary ---
Author Organization [facility] Address [address] [place] [address] Care Team Providers Care Digital Account Executive Name Role Phone Primitivo Crowder MD Primary Care Provider [phone] Encounter Details Date Type Department Care Team (Latest Contact Info) Description 04/14/2000 Outpatient Historical [facility] [address] [phone] Primitivo Crowder MD [address] [place] [phone] Other and unspecified hyperlipidemia (Primary Dx); Unspecified essential hypertension; Abdominal pain, unspecified site Social History Tobacco Use Types Packs/Day Years Used Date Smoking Tobacco: Never Assessed Sex and Gender Information Value Date Recorded Sex Assigned at Not on file 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
--- OUTSIDE RECORDS SUMMARY | 2025-05-29 12:03 | XMS_ITS | Encounter Summary ---
Author Organization [facility] Address [address] [place] [address] Care Team Providers Care Aircraft Charter Dispatcher Name Role Phone Primitivo Crowder MD Primary Care Provider [phone] Encounter Details Date Type Department Care Team (Latest Contact Info) Description 06/08/1999 Outpatient Historical [facility] [address] [place] [phone] Mg Young MD [address] [place] [address] Unspecified essential hypertension (Primary Dx); Other and unspecified hyperlipidemia Social History Tobacco Use Types Packs/Day Years Used Date Smoking Tobacco: Never Assessed Sex and Gender Information Value Date Recorded Sex Assigned at Not on file 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
--- OUTSIDE RECORDS SUMMARY | 2025-05-29 12:03 | XMS_ITS | Encounter Summary ---
Author Organization [facility] Address [address] [place] [address] Care Team Providers Care Dairy Equipment Installer Name Role Phone Primitivo Crowder MD Primary Care Provider [phone] Encounter Details Date Type Department Care Team (Late st Contact Info) Description 08/12/2007 Outpatient Historical [address] Surgery Heart Lung [address] 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[employer] Gender Identity Not on file Sexual Orientation Not on file documented as of this encounter Plan of Treatment Not on file documented as of this encounter Procedures Procedure Name Priority Date/Time Associated Diagnosis Comments POC GLUCOSE Routine 08/19/2007 11:15 AM AIRPLANE COVER MAKER POC GLUCOSE Routine 08/19/2007 6:48 AM AIRPLANE COVER MAKER POC GLUCOSE Routine 08/18/2007 8:47 PM AIRPLANE COVER MAKER POC GLUCOSE Routine 08/18/2007 5:25 PM AIRPLANE COVER MAKER POC GLUCOSE Routine 08/18/2007 12:25 PM AIRPLANE COVER MAKER POC GLUCOSE Routine 08/18/2007 6:41 AM AIRPLANE COVER MAKER CBC WITH DIFFERENTIAL Routine 08/18/2007 4:51 AM AIRPLANE COVER MAKER BASIC METABOLIC PANEL Routine 08/18/2007 4:51 AM AIRPLANE COVER MAKER POC GLUCOSE Routine 08/17/2007 9:54 PM AIRPLANE COVER MAKER POC GLUCOSE Routine 08/17/2007 6:04 PM AIRPLANE COVER MAKER POC GLUCOSE Routine 08/17/2007 12:15 PM AIRPLANE COVER MAKER POC GLUCOSE Routine 08/17/2007 7:03 AM AIRPLANE COVER MAKER POC GLUCOSE Routine 08/16/2007 8:09 PM AIRPLANE COVER MAKER POC GLUCOSE Routine 08/16/2007 4:50 PM AIRPLANE COVER MAKER POC GLUCOSE Routine 08/16/2007 12:01 PM AIRPLANE COVER MAKER POC GLUCOSE Routine 08/16/2007 5:23 AM AIRPLANE COVER MAKER CBC WITH DIFFERENTIAL Routine 08/16/2007 2:32 AM AIRPLANE COVER MAKER BASIC METABOLIC PANEL Routine 08/16/2007 2:32 AM AIRPLANE COVER MAKER POC GLUCOSE Routine 08/15/2007 8:58 PM AIRPLANE COVER MAKER POC GLUCOSE Routine 08/15/2007 5:27 PM AIRPLANE COVER MAKER POTASSIUM LEVEL Routine 08/15/2007 4:00 PM AIRPLANE COVER MAKER POC GLUCOSE Routine 08/15/2007 11:54 AM AIRPLANE COVER MAKER POC GLUCOSE Routine 08/15/2007 7:51 AM AIRPLANE COVER MAKER POC GLUCOSE Routine 08/15/2007 6:24 AM AIRPLANE COVER MAKER CBC WITH DIFFERENTIAL Routine 08/15/2007 1:49 AM AIRPLANE COVER MAKER BASIC METABOLIC PANEL Routine 08/15/2007 1:49 AM AIRPLANE COVER MAKER POC GLUCOSE Routine 08/15/2007 1:37 AM AIRPLANE COVER MAKER POC GLUCOSE Routine 08/14/2007 10:58 PM AIRPLANE COVER MAKER POC GLUCOSE Routine 08/14/2007 8:28 PM AIRPLANE COVER MAKER POC GLUCOSE Routine 08/14/2007 7:26 PM AIRPLANE COVER MAKER POC BLOOD GAS, LYTES AND H+H Routine 08/14/2007 6:40 PM AIRPLANE COVER MAKER POC GLUCOSE Routine 08/14/2007 6:22 PM AIRPLANE COVER MAKER POC GLUCOSE Routine 08/14/2007 5:27 PM AIRPLANE COVER MAKER POC GLUCOSE Routine 08/14/2007 4:32 PM AIRPLANE COVER MAKER POC GLUCOSE Routine 08/14/2007 3:33 PM AIRPLANE COVER MAKER POC GLUCOSE Routine 08/14/2007 2:32 PM AIRPLANE COVER MAKER POC GLUCOSE Routine 08/14/2007 1:29 PM AIRPLANE COVER MAKER POC BLOOD GAS, LYTES AND H+H Routine 08/14/2007 12:15 PM AIRPLANE COVER MAKER POC GLUCOSE Routine 08/14/2007 12:09 PM AIRPLANE COVER MAKER CBC WITHOUT DIFFERENTIAL Routine 08/14/2007 12:01 PM AIRPLANE COVER MAKER PT AND APTT Routine 08/14/2007 10:49 AM AIRPLANE COVER MAKER CBC WITHOUT DIFFERENTIAL Routine 08/14/2007 10:49 AM AIRPLANE COVER MAKER CARDIAC ENZYMES Routine 08/13/2007 4:15 AM AIRPLANE COVER MAKER LIPID PANEL Routine 08/13/2007 4:15 AM AIRPLANE COVER MAKER CARDIAC ENZYMES Routine 08/12/2007 9:56 PM AIRPLANE COVER MAKER XR CHEST PA OR AP 1 VW Routine 08/12/2007 4:09 PM AIRPLANE COVER MAKER XR CHEST PA OR AP 1 VW Routine 08/12/2007 4:09 PM AIRPLANE COVER MAKER XR CHEST PA OR AP 1 VW Routine 08/12/2007 4:09 PM AIRPLANE COVER MAKER CARDIAC ENZYMES Routine 08/12/2007 3:55 PM AIRPLANE COVER MAKER CBC WITH DIFFERENTIAL Routine 08/12/2007 3:55 PM AIRPLANE COVER MAKER PTT Routine 08/12/2007 3:55 PM AIRPLANE COVER MAKER PROTIME-INR Routine 08/12/2007 3:55 PM AIRPLANE COVER MAKER BASIC METABOLIC PANEL Routine 08/12/2007 3:55 PM AIRPLANE COVER MAKER documented in this encounter Results * (ABNORMAL) POC GLUCOSE (08/19/2007 11:15 AM AIRPLANE COVER MAKER) GLUCOSE POC 109(H) 60 - 100 mg/dL INTERFACE SYSTEM 08/19/2007 11:1 5 AM AIRPLANE COVER MAKER us William Ramires MD POINT OF CARE TESTING Edite d Performing Organization Address [facility] Co de Phone Number INTERFACE SYSTEM Refer to clinic/hospital department * (ABNORMAL) POC GLUCOSE (08/19/2007 6:48 AM AIRPLANE COVER MAKER) GLUCOSE POC 170(H) 60 - 100 mg/dL INTERFACE SYSTEM 08/19/2007 6:48 AM AIRPLANE COVER MAKER us William Ramires MD POINT OF CARE TESTING Edite d Performing Organization Address [facility] Co de Phone Number INTERFACE SYSTEM Refer to clinic/hospital department * (ABNORMAL) POC GLUCOSE (08/18/2007 8:47 PM AIRPLANE COVER MAKER) GLUCOSE POC 159(H) 60 - 100 mg/dL INTERFACE SYSTEM 08/18/2007 8:47 PM AIRPLANE COVER MAKER us William Ramires MD POINT OF CARE TESTING Edite d Performing Organization Address [facility] Phone Number INTERFACE SYSTEM Refer to clinic/hospital department * POC GLUCOSE (08/18/2007 5:25 PM AIRPLANE COVER MAKER) GLUCOSE POC 96 60 - 100 mg/dL INTERFACE SYSTEM 08/18/2007 5:25 PM AIRPLANE COVER MAKER us William Ramires MD POINT OF CARE TESTING Edite d Performing Organization Address [facility] Phone Number INTERFACE SYSTEM Refer to clinic/hospital department * (ABNORMAL) POC GLUCOSE (08/18/2007 12:25 PM AIRPLANE COVER MAKER) GLUCOSE POC 101(H) 60 - 100 mg/dL INTERFACE SYSTEM 08/18/2007 12:2 5 PM AIRPLANE COVER MAKER us William Ramires MD POINT OF CARE TESTING Edite d Performing Organization Address [facility] Phone Number INTERFACE SYSTEM Refer to clinic/hospital department * (ABNORMAL) POC GLUCOSE (08/18/2007 6:41 AM AIRPLANE COVER MAKER) GLUCOSE POC 104(H) 60 - 100 mg/dL INTERFACE SYSTEM 08/18/2007 6:41 AM AIRPLANE COVER MAKER us William Ramires MD POINT OF CARE TESTING Edite d Performing Organization Address [facility] Phone Number INTERFACE SYSTEM Refer to clinic/hospital department * (ABNORMAL) BASIC METABOLIC PANEL (08/18/2007 4:51 AM AIRPLANE COVER MAKER) GLUCOSE 105 70 - 110 mg/dL INTERFACE [...] 295 mOsm/Kg INTERFACE SYSTEM 08/18/2007 4:51 AM AIRPLANE COVER MAKER Philip Parmar II, MD CHEMISTRY ORDERABLES Edit ed INTERFACE SYSTEM Refer to clinic/hospital department * (ABNORMAL) CBC WITH DIFFERENTIAL (08/18/2007 4:51 AM AIRPLANE COVER MAKER) WBC 12.2(H) 4.5 - 11.0 K/ul INTERFACE [...] 0.2 K/ul INTERFACE SYSTEM 08/18/2007 4:51 AM AIRPLANE COVER MAKER Philip Parmar II, MD HEMATOLOGY ORDERABLES Prabhu hiram Performing Organization Address [facility] Co de Phone Number INTERFACE SYSTEM Refer to clinic/hospital department * (ABNORMAL) POC GLUCOSE (08/17/2007 9:54 PM AIRPLANE COVER MAKER) GLUCOSE POC 123(H) 60 - 100 mg/dL INTERFACE SYSTEM 08/17/2007 9:54 PM AIRPLANE COVER MAKER us William Ramires MD POINT OF CARE TESTING Edite d Performing Organization Address [facility] de Phone Number INTERFACE SYSTEM Refer to clinic/hospital department * POC GLUCOSE (08/17/2007 6:04 PM AIRPLANE COVER MAKER) GLUCOSE POC 100 60 - 100 mg/dL INTERFACE SYSTEM 08/17/2007 6:04 PM AIRPLANE COVER MAKER Result Antonio Ramires MD POINT OF CARE TESTING Edite d Performing Organization Address [facility] de Phone Number INTERFACE SYSTEM Refer to clinic/hospital department * POC GLUCOSE (08/17/2007 12:15 PM AIRPLANE COVER MAKER) GLUCOSE POC 96 60 - 100 mg/dL INTERFACE SYSTEM 08/17/2007 12:1 5 PM AIRPLANE COVER MAKER Result Antonio Ramires MD POINT OF CARE TESTING Edite d Performing Organization Address [facility] de Phone Number INTERFACE SYSTEM Refer to clinic/hospital department * (ABNORMAL) POC GLUCOSE (08/17/2007 7:03 AM AIRPLANE COVER MAKER) GLUCOSE POC 137(H) 60 - 100 mg/dL INTERFACE SYSTEM 08/17/2007 7:03 AM AIRPLANE COVER MAKER Result Antonio Ramires MD POINT OF CARE TESTING Edite d Performing Organization Address [facility] Co de Phone Number INTERFACE SYSTEM Refer to clinic/hospital department * (ABNORMAL) POC GLUCOSE (08/16/2007 8:09 PM AIRPLANE COVER MAKER) GLUCOSE POC 140(H) 60 - 100 mg/dL INTERFACE SYSTEM 08/16/2007 8:09 PM AIRPLANE COVER MAKER us William Ramires MD POINT OF CARE TESTING Edite d INTERFACE SYSTEM Refer to clinic/hospital department * (ABNORMAL) POC GLUCOSE (08/16/2007 4:50 PM AIRPLANE COVER MAKER) GLUCOSE POC 149(H) 60 - 100 mg/dL INTERFACE SYSTEM 08/16/2007 4:50 PM AIRPLANE COVER MAKER us William Ramires MD POINT OF CARE TESTING Edite d Performing Organization Address [facility] Co de Phone Number INTERFACE SYSTEM Refer to clinic/hospital department * (ABNORMAL) POC GLUCOSE (08/16/2007 12:01 PM AIRPLANE COVER MAKER) GLUCOSE POC 149(H) 60 - 100 mg/dL INTERFACE SYSTEM 08/16/2007 12:0 1 PM AIRPLANE COVER MAKER us William Ramires MD POINT OF CARE TESTING Edite d Performing Organization Address [facility] Co de Phone Number INTERFACE SYSTEM Refer to clinic/hospital department * (ABNORMAL) POC GLUCOSE (08/16/2007 5:23 AM AIRPLANE COVER MAKER) GLUCOSE POC 177(H) 60 - 100 mg/dL INTERFACE SYSTEM 08/16/2007 5:23 AM AIRPLANE COVER MAKER Result Antonio Ramires MD POINT OF CARE TESTING Edite d INTERFACE SYSTEM Refer to clinic/hospital department * (ABNORMAL) BASIC METABOLIC PANEL (08/16/2007 2:32 AM AIRPLANE COVER MAKER) GLUCOSE 139(H) 70 - 110 mg/dL INTERFACE [...] 295 mOsm/Kg INTERFACE SYSTEM 08/16/2007 2:32 AM AIRPLANE COVER MAKER us Philip Pamrar II, MD CHEMISTRY ORDERABLES Edit ed INTERFACE SYSTEM Refer to clinic/hospital department * (ABNORMAL) CBC WITH DIFFERENTIAL (08/16/2007 2:32 AM AIRPLANE COVER MAKER) WBC 15.8(H) 4.5 - 11.0 K/ul INTERFACE [...] 0.2 K/ul INTERFACE SYSTEM 08/16/2007 2:32 AM AIRPLANE COVER MAKER Philip Parmar II, MD HEMATOLOGY ORDERABLES Prabhu hiram Performing Organization Address [facility] de Phone Number INTERFACE SYSTEM Refer to clinic/hospital department * (ABNORMAL) POC GLUCOSE (08/15/2007 8:58 PM AIRPLANE COVER MAKER) GLUCOSE POC 180(H) 60 - 100 mg/dL INTERFACE SYSTEM 08/15/2007 8:58 PM AIRPLANE COVER MAKER William Ramires MD POINT OF CARE TESTING Edite d Performing Organization Address [facility] Phone Number INTERFACE SYSTEM Refer to clinic/hospital department * (ABNORMAL) POC GLUCOSE (08/15/2007 5:27 PM AIRPLANE COVER MAKER) GLUCOSE POC 166(H) 60 - 100 mg/dL INTERFACE SYSTEM 08/15/2007 5:27 PM AIRPLANE COVER MAKER William Ramires MD POINT OF CARE TESTING Edite d Performing Organization Address [facility] Phone Number INTERFACE SYSTEM Refer to clinic/hospital department * POTASSIUM LEVEL (08/15/2007 4:00 PM AIRPLANE COVER MAKER) POTASSIUM 4.7 3.5 - 5.0 mEq/L INTERFACE SYSTEM 08/15/2007 4:00 PM AIRPLANE COVER MAKER us William Ramires MD CHEMISTRY ORDERABLES Edited Performing Organization Address [facility] de Phone Number INTERFACE SYSTEM Refer to clinic/hospital department * (ABNORMAL) POC GLUCOSE (08/15/2007 11:54 AM AIRPLANE COVER MAKER) GLUCOSE POC 151(H) 60 - 100 mg/dL INTERFACE SYSTEM 08/15/2007 11:5 4 AM AIRPLANE COVER MAKER us William Ramires MD POINT OF CARE TESTING Edite d Performing Organization Address [facility] Co de Phone Number INTERFACE SYSTEM Refer to clinic/hospital department * (ABNORMAL) POC GLUCOSE (08/15/2007 7:51 AM AIRPLANE COVER MAKER) GLUCOSE POC 126(H) 60 - 100 mg/dL INTERFACE SYSTEM 08/15/2007 7:51 AM AIRPLANE COVER MAKER William Ramires MD POINT OF CARE TESTING Edite d Performing Organization Address [facility] de Phone Number INTERFACE SYSTEM Refer to clinic/hospital department * (ABNORMAL) POC GLUCOSE (08/15/2007 6:24 AM AIRPLANE COVER MAKER) GLUCOSE POC 126(H) 60 - 100 mg/dL INTERFACE SYSTEM 08/15/2007 6:24 AM AIRPLANE COVER MAKER us William Ramires MD POINT OF CARE TESTING Edite d Performing Organization Address [facility] de Phone Number INTERFACE SYSTEM Refer to clinic/hospital department * (ABNORMAL) CBC WITH DIFFERENTIAL (08/15/2007 1:49 AM AIRPLANE COVER MAKER) WBC 16.4(H) 4.5 - 11.0 K/ul INTERFACE [...] 0.2 K/ul INTERFACE SYSTEM 08/15/2007 1:49 AM AIRPLANE COVER MAKER us Edmundo Solis MD HEMATOLOGY ORDERABLES Edited Performing Organization Address [facility] Phone Number INTERFACE SYSTEM Refer to clinic/hospital department * (ABNORMAL) BASIC METABOLIC PANEL (08/15/2007 1:49 AM AIRPLANE COVER MAKER) GLUCOSE 117(H) 70 - 110 mg/dL INTERFACE [...] 295 mOsm/Kg INTERFACE SYSTEM 08/15/2007 1:49 AM AIRPLANE COVER MAKER us Edmundo Solis MD CHEMISTRY ORDERABLES Edited Performing Organization Address [facility] Phone Number INTERFACE SYSTEM Refer to clinic/hospital department * (ABNORMAL) POC GLUCOSE (08/15/2007 1:37 AM AIRPLANE COVER MAKER) GLUCOSE POC 113(H) 60 - 100 mg/dL INTERFACE SYSTEM 08/15/2007 1:37 AM AIRPLANE COVER MAKER us William G Stratmann MD POINT OF CARE TESTING Edite d Performing Organization Address [facility] de Phone Number INTERFACE SYSTEM Refer to clinic/hospital department * (ABNORMAL) POC GLUCOSE (08/14/2007 10:58 PM AIRPLANE COVER MAKER) GLUCOSE POC 128(H) 60 - 100 mg/dL INTERFACE SYSTEM 08/14/2007 10:5 8 PM AIRPLANE COVER MAKER us William Ramires MD POINT OF CARE TESTING Edite d Performing Organization Address [facility] Phone Number INTERFACE SYSTEM Refer to clinic/hospital department * (ABNORMAL) POC GLUCOSE (08/14/2007 8:28 PM AIRPLANE COVER MAKER) GLUCOSE POC 126(H) 60 - 100 mg/dL INTERFACE SYSTEM 08/14/2007 8:28 PM AIRPLANE COVER MAKER William Ramires MD POINT OF CARE TESTING Edite d Performing Organization Address [facility] de Phone Number INTERFACE SYSTEM Refer to clinic/hospital department * (ABNORMAL) POC GLUCOSE (08/14/2007 7:26 PM AIRPLANE COVER MAKER) GLUCOSE POC 129(H) 60 - 100 mg/dL INTERFACE SYSTEM 08/14/2007 7:26 PM AIRPLANE COVER MAKER us William Ramires MD POINT OF CARE TESTING Edite d Performing Organization Address [facility] Phone Number INTERFACE SYSTEM Refer to clinic/hospital department * (ABNORMAL) POC ISTAT EG 7+ (08/14/2007 6:40 PM AIRPLANE COVER MAKER) SPECIMEN TYPE Arterial INTERF ROSEMARIE SYSTEM Comment: Test Performed By [id number] PEEP: 05 Pulse OX: 100 Hemoglobin calculated [...] 1.32 mmol/l INTERFACE SYSTEM 08/14/2007 6:40 PM AIRPLANE COVER MAKER us William Ramires MD POINT OF CARE TESTING COM E dited Performing Organization Address [facility] Phone Number INTERFACE SYSTEM Refer to clinic/hospital department * (ABNORMAL) POC GLUCOSE (08/14/2007 6:22 PM AIRPLANE COVER MAKER) GLUCOSE POC 125(H) 60 - 100 mg/dL INTERFACE SYSTEM 08/14/2007 6:22 PM AIRPLANE COVER MAKER us William Ramires MD POINT OF CARE TESTING Edite d Performing Organization Address [facility] de Phone Number INTERFACE SYSTEM Refer to clinic/hospital department * (ABNORMAL) POC GLUCOSE (08/14/2007 5:27 PM AIRPLANE COVER MAKER) GLUCOSE POC 128(H) 60 - 100 mg/dL INTERFACE SYSTEM 08/14/2007 5:27 PM AIRPLANE COVER MAKER us William Ramires MD POINT OF CARE TESTING Edite d Performing Organization Address [facility] Co de Phone Number INTERFACE SYSTEM Refer to clinic/hospital department * (ABNORMAL) POC GLUCOSE (08/14/2007 4:32 PM AIRPLANE COVER MAKER) GLUCOSE POC 129(H) 60 - 100 mg/dL INTERFACE SYSTEM 08/14/2007 4:32 PM AIRPLANE COVER MAKER us William Ramires MD POINT OF CARE TESTING Edite d Performing Organization Address [facility] de Phone Number INTERFACE SYSTEM Refer to clinic/hospital department * (ABNORMAL) POC GLUCOSE (08/14/2007 3:33 PM AIRPLANE COVER MAKER) GLUCOSE POC 141(H) 60 - 100 mg/dL INTERFACE SYSTEM 08/14/2007 3:33 PM AIRPLANE COVER MAKER us William Ramires MD POINT OF CARE TESTING Edite d Performing Organization Address [facility] Phone Number INTERFACE SYSTEM Refer to clinic/hospital department * (ABNORMAL) POC GLUCOSE (08/14/2007 2:32 PM AIRPLANE COVER MAKER) GLUCOSE POC 145(H) 60 - 100 mg/dL INTERFACE SYSTEM 08/14/2007 2:32 PM AIRPLANE COVER MAKER us William Ramires MD POINT OF CARE TESTING Edite d Performing Organization Address [facility] Phone Number INTERFACE SYSTEM Refer to clinic/hospital department * (ABNORMAL) POC GLUCOSE (08/14/2007 1:29 PM AIRPLANE COVER MAKER) GLUCOSE POC 139(H) 60 - 100 mg/dL INTERFACE SYSTEM 08/14/2007 1:29 PM AIRPLANE COVER MAKER us William Ramires MD POINT OF CARE TESTING Edite d Performing Organization Address [facility] de Phone Number INTERFACE SYSTEM Refer to clinic/hospital department * (ABNORMAL) POC ISTAT EG 7+ (08/14/2007 12:15 PM AIRPLANE COVER MAKER) SPECIMEN TYPE Arterial INTERF ROSEMARIE SYSTEM Comment: Tidal Volume: 800 Rate: 12 PEEP: 8 Pulse Ox: 100 Test performed by [id number]. FIO2 50 INTERFACE SYSTEM TEMPERATURE 97.7 DegC [...] mmol/l INTERFACE SYSTEM 08/14/2007 12:1 5 PM AIRPLANE COVER MAKER William Ramires MD POINT OF CARE TESTING COM E dited Performing Organization Address [facility] de Phone Number INTERFACE SYSTEM Refer to clinic/hospital department * (ABNORMAL) POC GLUCOSE (08/14/2007 12:09 PM AIRPLANE COVER MAKER) GLUCOSE POC 127(H) 60 - 100 mg/dL INTERFACE SYSTEM 08/14/2007 12:0 9 PM AIRPLANE COVER MAKER us William Ramires MD POINT OF CARE TESTING Edite d Performing Organization Address [facility] de Phone Number INTERFACE SYSTEM Refer to clinic/hospital department * (ABNORMAL) CBC WITHOUT DIFFERENTIAL (08/14/2007 12:01 PM AIRPLANE COVER MAKER) WBC 11.8(H) 4.5 - 11.0 K/ul INTERFACE [...] K/ul INTERFACE SYSTEM 08/14/2007 12:0 1 PM AIRPLANE COVER MAKER us William Ramires MD HEMATOLOGY ORDERABLES Edite d INTERFACE SYSTEM Refer to clinic/hospital department * (ABNORMAL) PT AND APTT (08/14/2007 10:49 AM AIRPLANE COVER MAKER) PROTIME 16.8(H) 12.8 - 15.8 Secs INTERFACE [...] APTT Normal Range. 08/14/2007 10:4 9 AM AIRPLANE COVER MAKER us William Ramires MD HEMATOLOGY ORDERABLES Edite d INTERFACE SYSTEM Refer to clinic/hospital department * (ABNORMAL) CBC WITHOUT DIFFERENTIAL (08/14/2007 10:49 AM AIRPLANE COVER MAKER) WBC 11.3(H) 4.5 - 11.0 K/ul INTERFACE [...] Diff INTERFACE SYSTEM 08/14/2007 10:4 9 AM AIRPLANE COVER MAKER William Ramires MD HEMATOLOGY ORDERABLES Edite d Performing Organization Address [facility] de Phone Number INTERFACE SYSTEM Refer to clinic/hospital department * (ABNORMAL) LIPID PANEL (08/13/2007 4:15 AM AIRPLANE COVER MAKER) CHOLESTEROL 198 75 - 200 mg/dL INTERFACE SYSTEM HDL 23(L) 40 - 60 mg/dL INTERFACE SYSTEM CALCULATED LDL CHOLESTEROL SEE COMMENT 0 - 130 mg/dL INTERFACE SYSTEM TRIGLYCERIDE 557(H) 0 - 179 mg/dL INTERFACE SYSTEM Comment:Triglycerides >400 m g/dl; LDL calculation invalid CALCULATED TOTAL CHOLESTEROL TO HDL RATIO 8.61(H) 3.43 - 4.97 INTERFACE SYSTEM 08/13/2007 4:15 AM AIRPLANE COVER MAKER William Ramires MD CHEMISTRY ORDERABLES Edited Performing Organization Address [facility] Phone Number INTERFACE SYSTEM Refer to clinic/hospital department * CARDIAC ENZYMES (08/13/2007 4:15 AM AIRPLANE COVER MAKER) TROPONIN I 0.4 0.0 - 1.3 ng/mL INTERFACE SYSTEM Comment: As of 06 the Troponin Reference Range has changed from 0.0-1.5 ng/ml to 0.0- 1.3 ng/ml due to a change in testing methodology. CKMB <0.2 0.0 - 5.0 ng/mL INTERFACE SYSTEM 08/13/2007 4:15 AM AIRPLANE COVER MAKER Michael Phillips DO CHEMISTRY ORDERABLES Edite d Performing Organization Address [facility] de Phone Number INTERFACE SYSTEM Refer to clinic/hospital department * CARDIAC ENZYMES (08/12/2007 9:56 PM AIRPLANE COVER MAKER) TROPONIN I 0.4 0.0 - 1.3 ng/mL INTERFACE SYSTEM Comment: As of 06 the Troponin Reference Range has changed from 0.0-1.5 ng/ml to 0.0- 1.3 ng/ml due to a change in testing methodology. CKMB 0.3 0.0 - 5.0 ng/mL INTERFACE SYSTEM 08/12/2007 9:56 PM AIRPLANE COVER MAKER Michael Phillips DO CHEMISTRY ORDERABLES Edite d INTERFACE SYSTEM Refer to clinic/hospital department * XR CHEST PA OR AP (08/12/2007 4:09 PM AIRPLANE COVER MAKER) Anatomical Region Laterality Modality Chest Other 08/12/2007 4:09 PM AIRPLANE COVER MAKER Narrative 08/12/2007 4:09 PM AIRPLANE COVER MAKER Exam: Chest - PortableDate/Time of Exam: Aug 18, 2007 8:08:35 AMHistory: Post-operative. Comparison 08/15/2007 0417 hours. Patient is status post median sternotomy with minimal rotation to theleft. Left chest tube is unchanged. Left subclavian Schuyler-Ward catheter has been removed. There isimproved aeration of the medial right lung base with persistent left basilar atelectasis versusinfiltrate identified. Impression: 1. Post operative chest with improved aeration of the medial right lung base with residual left basilaratelectasis versus infiltrate. 2. Status post left subclavian Schuyler-Ward catheter removal. - Dictated By: Bryanna Bach M.D. Electronically Signed By: Bryanna Bach M.D. Date Signed: 08/18/07 SDM Procedure Note 06/25/2009 Exam: Chest - PortableDate/Time of Exam: Aug 18, 2007 8:08:35 AMHistory: Post-operative. Comparison 08/15/2007 0417 hours. Patient is status post median sternotomywith minimal rotation to theleft. Left chest tube is unchanged. Left subclavian Schuyler-Ward catheterhas been removed. There isimproved aeration of the medial right lung base with persistent leftbasilar atelectasis versusinfiltrate identified. Impression: 1. Post operative chest with improved aeration of the medial right lungbase with residual left basilaratelectasis versus infiltrate. 2. Status post left subclavian Schuyler-Ward catheter removal. - Dictated By: Bryanna Bach M.D. Electronically Signed By: Bryanna Bach M.D. Date Signed: 08/18/07 SDM [facility] Phys[facility] O RDERABLES Final Result * XR CHEST PA OR AP (08/12/2007 4:09 PM AIRPLANE COVER MAKER) Anatomical Region Laterality Modality Chest Other 08/12/2007 4:09 PM AIRPLANE COVER MAKER Narrative 08/12/2007 4:09 PM AIRPLANE COVER MAKER Exam: Chest - PortableDate/Time of Exam: Aug 15, 2007 4:48:38 AMHistory: Please see order comments. Comparisons: 08/14/2007 at 1107. Findings: Patient is status post median sternotomy. There has been interval extubation and removal ofthe NG tube noted on prior examination. Left subclavian Schuyler-Ward catheter and a single left-sidedchest tube are [...] tube noted on prior examination. Left subclavian Schuyler-Ward catheter and asingle left-sidedchest tube are again [...] CHEST PA OR AP (08/12/2007 4:09 PM AIRPLANE COVER MAKER) Anatomical Region Laterality Modality Chest Other 08/12/2007 4:09 PM AIRPLANE COVER MAKER Narrative 08/12/2007 4:09 PM AIRPLANE COVER MAKER Exam: Chest - PortableDate/Time of Exam: Aug [...] a very small pleural fluid collection. A Schuyler-Ganzcatheter enters from the left subclavian vein and [...] Ellington M.D. Date Signed: 08/24/07 [facility] Procedure Note 06/25/2009 Exam: Chest - PortableDate/Time [...] Ellington M.D. Date Signed: 08/24/07 [facility] Harpreet Boyce MD DIAGNOSTIC IMAGING ORDERABLES Fi nal Result * (ABNORMAL) CBC WITH DIFFERENTIAL (08/12/2007 3:55 PM AIRPLANE COVER MAKER) WBC 9.8 4.5 - 11.0 K/ul INTERFACE [...] 0.2 K/ul INTERFACE SYSTEM 08/12/2007 3:55 PM AIRPLANE COVER MAKER Michael Phillips DO HEMATOLOGY ORDERABLES Edit ed Performing Organization Address [facility] Phone Number INTERFACE SYSTEM Refer to clinic/hospital department * PTT (08/12/2007 3:55 PM AIRPLANE COVER MAKER) PTT 27.4 21.6 - 35.6 Secs INTERFACE SYSTEM Comment: Therapeutic Range: Hi-level PE/DVT heparin protocol 80.1 -95.0 sec Lo-level PE/DVT heparin protocol 67.1 - 80.0 sec Cardiac Heparin Protocol 67.1 - 85.0 sec Neuro Heparin Protocol 67.1 - 80.0 sec As of 07/10/2006 note change in APTT Normal Range. 08/12/2007 3:55 PM AIRPLANE COVER MAKER us Michael Phillips DO HEMATOLOGY ORDERABLES Edit ed Performing Organization Address [facility] de Phone Number INTERFACE SYSTEM Refer to clinic/hospital department * PROTIME-INR (08/12/2007 3:55 PM AIRPLANE COVER MAKER) Pathologist [facility] PROTIME 13.2 12.8 - 15.8 Secs INTERFACE [...] pharmacy Hitesh Ye D. 08/12/2007 3:55 PM AIRPLANE COVER MAKER us Michael Phillips DO HEMATOLOGY ORDERABLES Edit ed Performing Organization Address [facility] Phone Number INTERFACE SYSTEM Refer to clinic/hospital department * BASIC METABOLIC PANEL (08/12/2007 3:55 PM AIRPLANE COVER MAKER) Pathologist [facility] GLUCOSE 88 70 - 110 mg/dL INTERFACE [...] 295 mOsm/Kg INTERFACE SYSTEM 08/12/2007 3:55 PM AIRPLANE COVER MAKER us Michael Phillips DO CHEMISTRY ORDERABLES Edite d Performing Organization Address [facility] Phone Number INTERFACE SYSTEM Refer to clinic/hospital department * CARDIAC ENZYMES (08/12/2007 3:55 PM AIRPLANE COVER MAKER) TROPONIN I 0.3 0.0 - 1.3 ng/mL INTERFACE SYSTEM Comment: As of 06 the Troponin Reference Range has changed from 0.0-1.5 ng/ml to 0.0- 1.3 ng/ml due to a change in testing methodology. CKMB <0.2 0.0 - 5.0 ng/mL INTERFACE SYSTEM 08/12/2007 3:55 PM AIRPLANE COVER MAKER Michael Phillips DO CHEMISTRY ORDERABLES Edite d INTERFACE SYSTEM Refer to clinic/hospital department documented in this encounter Visit Diagnoses Diagnosis Chest pain, unspecified documented in this encounter Care Teams Dairy Equipment Installer Relationship Specialty Start Date End Date Primitivo Crowder MD [address] [place] [address] PCP - General Family Practice 05/20/14 documented as of this encounter
--- OUTSIDE RECORDS SUMMARY | 2025-05-29 12:03 | XMS_ITS | Encounter Summary ---
Author Organization [facility] Address [address] [facility] Attn: [place] [address] Care Team Providers Care Print Developer Automatic Name Role Phone Primitivo Crowder MD Primary Care Provider [phone] Encounter Details Date Type Department Care Team (Late st Contact Info) Description 06/30/2000 Outpatient Historical Primitivo Crowder MD [address] [place] [address] Social History Tobacco Use Types Packs/Day Years Used Date Smoking Tobacco: Never Assessed Sex and Gender Information Value Date Recorded Sex Assigned at Not on file Legal Sex Male 4:47 AM HEAD OF INSIGHT Gender Identity Not on file Sexual Orientation Not on file documented as of this encounter Plan of Treatment Not on file documented as of this encounter Visit Diagnoses Not on filedocumented in this encounter Care Teams Print Developer Automatic Relationship Specialty Start Date End Date Primitivo Crowder MD [address] [place] [address] PCP - General Family Practice 05/20/14 documented as of this encounter
--- OUTSIDE RECORDS SUMMARY | 2025-05-29 12:03 | XMS_ITS | Encounter Summary ---
Author Organization [facility] Address [address] [place] [address] Care Team Providers Care Metropolitan Editor Name Role Phone Primitivo Crowder MD Primary Care Provider [phone] Encounter Details Date Type Department Care Team (Latest Contact Info) Description 10/03/1999 Outpatient Historical [address] [phone] Primitivo Crowder MD [address] [place] [phone] Myalgia and myositis, unspecified (Primary Dx); Nonspecific abnormal results of liver function study; Unspecified essential hypertension; Other and unspecified hyperlipidemia Social History Tobacco Use Types Packs/Day Years Used Date Smoking Tobacco: Never Assessed Sex and Gender Information Value Date Recorded Sex Assigned at Not on file Legal Sex Male 4:47 AM DIRECTOR ADVANCED Gender Identity Not on file Sexual Orientation Not on file documented as of this encounter Plan of Treatment Not on file documented as of this encounter Visit Diagnoses Diagnosis Myalgia and myositis, unspecified- Primary Mylagia and myositis, unspecified Nonspecific abnormal results of liver function study Unspecified essential hypertension Other and unspecified hyperlipidemia documented in this encounter Care Teams Metropolitan Editor Relationship Specialty Start Date End Date Primitivo Crowder MD [address] [phone] PCP - General Family Practice 05/20/14 documented as of this encounter
--- OUTSIDE RECORDS SUMMARY | 2025-05-29 12:03 | XMS_ITS | Encounter Summary ---
Author Organization [facility] Address [address] [place] [address] Care Team Providers Care Center Aisle Cashier Name Role Phone Primitivo Crowder MD Primary Care Provider [phone] Encounter Details Date Type Department Care Team (Late st Contact Info) Description 08/30/2007 Emergency [facility] Emergency Department [address] [place] [phone] Ed, Physician NO ADDRESS ON FILE Joe Colvin MD NO ADDRESS ON FILE Social History Tobacco Use Types Packs/Day Years Used Date Smoking Tobacco: Never Assessed Sex and Gender Information Value Date Recorded Sex Assigned at Not on file Legal Sex Male 4:47 AM CHIEF DESIGN ENGINEER Gender Identity Not on file Sexual Orientation Not on file documented as of this encounter Plan of Treatment Not on file documented as of this encounter Procedures Procedure Name Priority Date/Time Associated Diagnosis Comments XR CHEST PA AND LATERAL 2 VW Stat 08/30/2007 2:18 PM CHIEF DESIGN ENGINEER CARDIAC ENZYMES Routine 08/30/2007 2:16 PM CHIEF DESIGN ENGINEER CBC WITH DIFFERENTIAL Routine 08/30/2007 2:16 PM CHIEF DESIGN ENGINEER COMPREHENSIVE METABOLIC PANEL Routine 08/30/2007 2:16 PM CHIEF DESIGN ENGINEER documented in this encounter Results * XR CHEST PA AND LATERAL (08/30/2007 2:18 PM CHIEF DESIGN ENGINEER) Anatomical Region Laterality Modality Chest Other 08/30/2007 2:18 PM CHIEF DESIGN ENGINEER Narrative 08/30/2007 2:18 PM CHIEF DESIGN ENGINEER Exam: Chest - PA and Lateral Date/Time [...] Result * CARDIAC ENZYMES (08/30/2007 2:16 PM CHIEF DESIGN ENGINEER) TROPONIN I <0.1 0.0 - 1.3 ng/mL INTERFACE SYSTEM Comment: As of 06 the Troponin Reference Range has changed from 0.0-1.5 ng/ml to 0.0- 1.3 ng/ml due to a change in testing methodology. CKMB 0.6 0.0 - 5.0 ng/mL INTERFACE SYSTEM 08/30/2007 2:16 PM CHIEF DESIGN ENGINEER Joe Colvin MD CHEMISTRY ORDERABLES Edite d INTERFACE SYSTEM Refer to clinic/hospital department * (ABNORMAL) COMPREHENSIVE METABOLIC PANEL (08/30/2007 2:16 PM CHIEF DESIGN ENGINEER) GLUCOSE 105 70 - 110 mg/dL INTERFACE [...] 295 mOsm/Kg INTERFACE SYSTEM 08/30/2007 2:16 PM CHIEF DESIGN ENGINEER us Joe Colvin MD CHEMISTRY ORDERABLES Edite d INTERFACE SYSTEM Refer to clinic/hospital department * (ABNORMAL) CBC WITH DIFFERENTIAL (08/30/2007 2:16 PM CHIEF DESIGN ENGINEER) WBC 11.4(H) 4.5 - 11.0 K/ul INTERFACE [...] 0.2 K/ul INTERFACE SYSTEM 08/30/2007 2:16 PM CHIEF DESIGN ENGINEER us Joe Colvin MD HEMATOLOGY ORDERABLES Edit ed INTERFACE SYSTEM Refer to clinic/hospital department documented in this encounter Visit Diagnoses Not on filedocumented in this encounter Care Teams Center Aisle Cashier Relationship Specialty Start Date End Date Primitivo Crowder MD [address] [place] [address] PCP - General Family Practice 05/20/14 documented as of this encounter
--- OUTSIDE RECORDS SUMMARY | 2025-05-29 12:03 | XMS_ITS | Encounter Summary ---
Author Organization [facility] Address [address] [facility] Attn: [place] [address] Care Team Providers Care Mincing Machine Operator Name Role Phone Primitivo Crowder MD Primary Care Provider [phone] Encounter Details Date Type Department Care Team (Late st Contact Info) Description 09/26/1999 Outpatient Historical Primitivo Crowder MD [address] [place] [address] Social History Tobacco Use Types Packs/Day Years Used Date Smoking Tobacco: Never Assessed Sex and Gender Information Value Date Recorded Sex Assigned at Not on file Legal Sex Male 4:47 AM SUPERVISOR TRANSCRIBING OPERATORS Gender Identity Not on file Sexual Orientation Not on file documented as of this encounter Plan of Treatment Not on file documented as of this encounter Visit Diagnoses Not on filedocumented in this encounter Care Teams Mincing Machine Operator Relationship Specialty Start Date End Date Primitivo Crowder MD [address] [place] [address] PCP - General Family Practice 05/20/14 documented as of this encounter
--- OUTSIDE RECORDS SUMMARY | 2025-05-29 12:03 | XMS_ITS | Encounter Summary ---
Author Organization [facility] Address [address] [place] [address] Care Team Providers Care Associate Professor Of Medicine Name Role Phone Primitivo Crowder MD Primary Care Provider [phone] Encounter Details Date Type Department Care Team (Late st Contact Info) Description 08/31/2007 Outpatient Historical [facility] [address] [place] [address] AMBULANCE, [facility] Social History Tobacco Use Types Packs/Day Years Used Date Smoking Tobacco: Never Assessed Sex and Gender Information Value Date Recorded Sex Assigned at Not on file Legal Sex Male 4:47 AM CRM ADMINISTRATOR Gender Identity Not on file Sexual Orientation Not on file documented as of this encounter Plan of Treatment Not on file documented as of this encounter Visit Diagnoses Not on filedocumented in this encounter Care Teams Associate Professor Of Medicine Relationship Specialty Start Date End Date Primitivo Crowder MD [address] [place] [address] PCP - General Family Practice 05/20/14 documented as of this encounter
--- OUTSIDE RECORDS SUMMARY | 2025-05-29 12:03 | XMS_ITS | Encounter Summary ---
Author Organization [facility] Address [address] [place] [address] Care Team Providers Care Staff Nurse Icu Resource Team Name Role Phone Primitivo Crowder MD Primary Care Provider [phone] Encounter Details Date Type Department Care Team (Latest Contact Info) Description 08/22/1998 Outpatient Historical [address] [phone] Primitivo Crowder MD [address] [place] [phone] Dizziness and giddiness (Primary Dx); Cough; Other and unspecified hyperlipidemia Social History Tobacco Use Types Packs/Day Years Used Date Smoking Tobacco: Never Assessed Sex and Gender Information Value Date Recorded Sex Assigned at Not on file Legal Sex Male 4:47 AM TUBE TEST TECHNICIAN Gender Identity Not on file Sexual Orientation Not on file documented as of this encounter Plan of Treatment Not on file documented as of this encounter Visit Diagnoses Diagnosis Dizziness and giddiness- Primary Cough Other and unspecified hyperlipidemia documented in this encounter Care Teams Staff Nurse Icu Resource Team Relationship Specialty Start Date End Date Primitivo Crowder MD [address] [place] [phone] PCP - General Family Practice 05/20/14 documented as of this encounter
--- OUTSIDE RECORDS SUMMARY | 2025-05-29 12:03 | XMS_ITS | Encounter Summary ---
Author Organization [facility] Address [address] [facility] Attn: [place] [address] Care Team Providers Care Senior Editor Name Role Phone Primitivo Crowder MD Primary Care Provider [phone] Encounter Details Date Type Department Care Team (Late st Contact Info) Description 10/17/1999 Outpatient Historical Primitivo Crowder MD [address] [place] [address] Social History Tobacco Use Types Packs/Day Years Used Date Smoking Tobacco: Never Assessed Sex and Gender Information Value Date Recorded Sex Assigned at Not on file Legal Sex Male 4:47 AM SEPTIC PUMP TRUCK DRIVER Gender Identity Not on file Sexual Orientation Not on file documented as of this encounter Plan of Treatment Not on file documented as of this encounter Visit Diagnoses Not on filedocumented in this encounter Care Teams Senior Editor Relationship Specialty Start Date End Date Primitivo Crowder MD [address] [place] [address] PCP - General Family Practice 05/20/14 documented as of this encounter
--- OUTSIDE RECORDS SUMMARY | 2025-05-29 12:03 | XMS_ITS | Encounter Summary ---
Author Organization [facility] Address [address] [place] [address] Care Team Providers Care Investment Analyst Name Role Phone Primitivo Crowder MD Primary Care Provider [phone] Encounter Details Date Type Department Care Team (Latest Contact Info) Description 02/14/1999 Outpatient Historical [facility] [address] [phone] Primitivo Crowder MD [address] [place] [phone] Generalized osteoarthrosis, involving multiple sites (Primary Dx); Unspecified hereditary and idiopathic peripheral neuropathy; Pure hyperglyceridemia; Irritable bowel syndrome Social History Tobacco Use Types Packs/Day Years Used Date Smoking Tobacco: Never Assessed Sex and Gender Information Value Date Recorded Sex Assigned at Not on file Legal Sex Male 4:47 AM HEAD CHOPPER Gender Identity Not on file Sexual Orientation Not on file documented as of this encounter Plan of Treatment Not on file documented as of this encounter Visit Diagnoses Diagnosis Generalized osteoarthrosis, involving multiple sites- Primary Unspecified hereditary and idiopathic peripheral neuropathy Pure hyperglyceridemia Irritable bowel syndrome documented in this encounter Care Teams Investment Analyst Relationship Specialty Start Date End Date Primitivo Crowder MD [address] [phone] PCP - General Family Practice 05/20/14 documented as of this encounter
--- OUTSIDE RECORDS SUMMARY | 2025-05-29 12:03 | XMS_ITS | Encounter Summary ---
Author Organization [facility] Address [address] [place] [address] Care Team Providers Care Herd Tester Name Role Phone Primitivo Crowder MD Primary Care Provider [phone] Encounter Details Date Type Department Care Team (Latest Contact Info) Description 03/07/1999 Outpatient Historical [facility] [address] [phone] Primitivo Crowder MD [address] [place] [phone] Other and unspecified hyperlipidemia (Primary Dx) Social History Tobacco Use Types Packs/Day Years Used Date Smoking Tobacco: Never Assessed Sex and Gender Information Value Date Recorded Sex Assigned at Not on file Legal Sex Male 4:47 AM COSMETIC ASSEMBLER Gender Identity Not on file Sexual Orientation Not on file documented as of this encounter Plan of Treatment Not on file documented as of this encounter Visit Diagnoses Diagnosis Other and unspecified hyperlipidemia- Primary documented in this encounter Care Teams Herd Tester Relationship Specialty Start Date End Date Primitivo Crowder MD [address] [phone] PCP - General Family Practice 05/20/14 documented as of this encounter
--- OUTSIDE RECORDS SUMMARY | 2025-05-29 12:03 | XMS_ITS | Encounter Summary ---
Author Organization [facility] Address [address] [place] [address] Care Team Providers Care Elephant Keeper Name Role Phone Primitivo Crowder MD Primary Care Provider [phone] Encounter Details Date Type Department Care Team (Latest Contact Info) Description 12/04/1998 Outpatient Historical [facility] [address] [phone] Primitivo Crowder MD [address] [place] [phone] Other and unspecified hyperlipidemia (Primary Dx) Social History Tobacco Use Types Packs/Day Years Used Date Smoking Tobacco: Never Assessed Sex and Gender Information Value Date Recorded Sex Assigned at Not on file Legal Sex Male 4:47 AM SCHEDULE ANALYST Gender Identity Not on file Sexual Orientation Not on file documented as of this encounter Plan of Treatment Not on file documented as of this encounter Visit Diagnoses Diagnosis Other and unspecified hyperlipidemia- Primary documented in this encounter Care Teams Elephant Keeper Relationship Specialty Start Date End Date Primitivo Crowder MD [address] [phone] PCP - General Family Practice 05/20/14 documented as of this encounter
--- OUTSIDE RECORDS SUMMARY | 2025-05-29 12:03 | XMS_ITS | Encounter Summary ---
Author Organization [facility] Address [address] [place] [address] Care Team Providers Care Ambulatory Nurse Name Role Phone Primitivo Crowder MD Primary Care Provider [phone] Encounter Details Date Type Department Care Team (Late st Contact Info) Description 09/01/2007 Outpatient Historical [facility] Cardiac Thor[facility] [place] [address] [place] [address] Edmundo Solis MD [address] [phone] Social History Tobacco Use Types Packs/Day Years Used Date Smoking Tobacco: Never Assessed Sex and Gender Information Value Date Recorded Sex Assigned at Not on file Legal Sex Male 4:47 AM PLATER HOT DIP Gender Identity Not on file Sexual Orientation [...] of palpitations and was placed on a rehabilitation assistant. He was still on the monitor. He [...] , A, 615 Job #: Document #: [id number] cc: ER HOT DIP documented in this encounter Plan of Treatment Not on file documented as of this encounter Visit Diagnoses Not on filedocumented in this encounter Care Teams Ambulatory Nurse Relationship Specialty Start Date End Date Primitivo Crowder MD [address] [place] [address] PCP - General Family Practice 05/20/14 documented as of this encounter
--- OUTSIDE RECORDS SUMMARY | 2025-05-29 12:03 | XMS_ITS | Encounter Summary ---
Author Organization [facility] Address [address] [facility] Attn: [place] [address] Care Team Providers Care Superintendent Meters Name Role Phone Primitivo Crowder MD Primary Care Provider [phone] Encounter Details Date Type Department Care Team (Late st Contact Info) Description 07/13/1999 Outpatient Historical Primitivo Crowder MD [address] [place] [address] Social History Tobacco Use Types Packs/Day Years Used Date Smoking Tobacco: Never Assessed Sex and Gender Information Value Date Recorded Sex Assigned at Not on file Legal Sex Male 4:47 AM ENGRAVER PICTURE Gender Identity Not on file Sexual Orientation Not on file documented as of this encounter Plan of Treatment Not on file documented as of this encounter Visit Diagnoses Not on filedocumented in this encounter Care Teams Superintendent Meters Relationship Specialty Start Date End Date Primitivo Crowder MD [address] [place] [address] PCP - General Family Practice 05/20/14 documented as of this encounter
--- OUTSIDE RECORDS SUMMARY | 2025-05-29 12:03 | XMS_ITS | Encounter Summary ---
Author Organization [facility] Address [address] [place] [address] Care Team Providers Care Head Of Mobile Name Role Phone Primitivo Crowder MD Primary Care Provider [phone] Encounter Details Date Type Department Care Team (Late st Contact Info) Description 08/28/[address] [facility] Emergency Department [address] [place] [phone] Ed, Physician NO ADDRESS ON FILE Cheko Renteria MD NO ADDRESS ON FILE Social History Tobacco Use Types Packs/Day Years Used Date Smoking Tobacco: Never Assessed Sex and Gender Information Value Date Recorded Sex Assigned at Not on file Legal Sex Male 4:47 AM TAR DISTRIBUTOR OPERATOR Gender Identity Not on file Sexual Orientation Not on file documented as of this encounter Plan of Treatment Not on file documented as of this encounter Procedures Procedure Name Priority Date/Time Associated Diagnosis Comments CARDIAC ENZYMES Routine 08/28/2007 3:17 PM TAR DISTRIBUTOR OPERATOR CBC WITH DIFFERENTIAL Routine 08/28/2007 3:17 PM TAR DISTRIBUTOR OPERATOR PTT Routine 08/28/2007 3:17 PM TAR DISTRIBUTOR OPERATOR PROTIME-INR Routine 08/28/2007 3:17 PM TAR DISTRIBUTOR OPERATOR TSH Routine 08/28/2007 3:17 PM TAR DISTRIBUTOR OPERATOR BASIC METABOLIC PANEL Routine 08/28/2007 3:17 PM TAR DISTRIBUTOR OPERATOR documented in this encounter Results * TSH (08/28/2007 3:17 PM TAR DISTRIBUTOR OPERATOR) TSH 2.120 0.350 - 5.500 uIU/ml INTERFACE SYSTEM 08/28/2007 3:17 PM TAR DISTRIBUTOR OPERATOR Cheko Renteria MD CHEMISTRY ORDERABLES Edited Performing Organization Address City/[facility] Co de Phone Number INTERFACE SYSTEM Refer to clinic/hospital department * (ABNORMAL) CBC WITH DIFFERENTIAL (08/28/2007 3:17 PM TAR DISTRIBUTOR OPERATOR) WBC 13.3(H) 4.5 - 11.0 K/ul INTERFACE [...] 0.2 K/ul INTERFACE SYSTEM 08/28/2007 3:17 PM TAR DISTRIBUTOR OPERATOR Cheko Renteria MD HEMATOLOGY ORDERABLES Edited Performing Organization Address City/[facility] Co de Phone Number INTERFACE SYSTEM Refer to clinic/hospital department * PTT (08/28/2007 3:17 PM TAR DISTRIBUTOR OPERATOR) PTT 27.6 21.6 - 35.6 Secs INTERFACE SYSTEM Comment: Therapeutic Range: Hi-level PE/DVT heparin protocol 80.1 -95.0 sec Lo-level PE/DVT heparin protocol 67.1 - 80.0 sec Cardiac Heparin Protocol 67.1 - 85.0 sec Neuro Heparin Protocol 67.1 - 80.0 sec As of 07/10/2006 note change in APTT Normal Range. 08/28/2007 3:17 PM TAR DISTRIBUTOR OPERATOR Cheko Renteria MD HEMATOLOGY ORDERABLES Edited Performing Organization Address [facility] Phone Number INTERFACE SYSTEM Refer to clinic/hospital department * PROTIME-INR (08/28/2007 3:17 PM TAR DISTRIBUTOR OPERATOR) PROTIME 14.1 12.8 - 15.8 Secs INTERFACE [...] Nae Nguyen Pharm D. 08/28/2007 3:17 PM TAR DISTRIBUTOR OPERATOR Result [facility] us Cheko Renteria MD HEMATOLOGY ORDERABLES Edited Performing Organization Address [facility] Phone Number INTERFACE SYSTEM Refer to clinic/hospital department * (ABNORMAL) BASIC METABOLIC PANEL (08/28/2007 3:17 PM TAR DISTRIBUTOR OPERATOR) GLUCOSE 113(H) 70 - 110 mg/dL INTERFACE [...] 295 mOsm/Kg INTERFACE SYSTEM 08/28/2007 3:17 PM TAR DISTRIBUTOR OPERATOR Cheko Renteria MD CHEMISTRY ORDERABLES Edited INTERFACE SYSTEM Refer to clinic/hospital department * CARDIAC ENZYMES (08/28/2007 3:17 PM TAR DISTRIBUTOR OPERATOR) TROPONIN I <0.1 0.0 - 1.3 ng/mL INTERFACE SYSTEM Comment: As of 06 the Troponin Reference Range has changed from 0.0-1.5 ng/ml to 0.0- 1.3 ng/ml due to a change in testing methodology. CKMB 0.9 0.0 - 5.0 ng/mL INTERFACE SYSTEM 08/28/2007 3:17 PM TAR DISTRIBUTOR OPERATOR Cheko Renteria MD CHEMISTRY ORDERABLES Edited INTERFACE SYSTEM Refer to clinic/hospital department documented in this encounter Visit Diagnoses Not on filedocumented in this encounter Care Teams Head Of Mobile Relationship Specialty Start Date End Date Primitivo Crowder MD [address] [place] [address] PCP - General Family Practice 05/20/14 documented as of this encounter
--- OUTSIDE RECORDS SUMMARY | 2025-05-29 12:03 | XMS_ITS | Encounter Summary ---
Author Organization [facility] Address [address] [place] [address] Care Team Providers Care Lubrication Worker Name Role Phone Primitivo Crowder MD Primary Care Provider [phone] Encounter Details Date Type Department Care Team (Late st Contact Info) Description 09/15/2007 Outpatient Historical [facility] Ed, Physician NO ADDRESS ON FILE Allen Gaspar, NO ADDRESS ON FILE William Ramires MD [address] [address] [place] [phone] Unspecified Chest Pain Social History Tobacco Use Types Packs/Day Years Used Date Smoking Tobacco: Never Assessed Sex and Gender Information Value Date Recorded Sex Assigned at Not on file Legal Sex Male 4:47 AM BLISTER RUST ERADICATOR Gender Identity Not on file Sexual Orientation Not on file documented as of this encounter Plan of Treatment Not on file documented as of this encounter Procedures Procedure Name Priority Date/Time Associated Diagnosis Comments CARDIAC ENZYMES Routine 09/16/2007 6:21 AM BLISTER RUST ERADICATOR SEDIMENTATION RATE Stat 09/16/2007 6: 21 AM BLISTER RUST ERADICATOR LIPASE Stat 09/16/2007 6:21 AM BLISTER RUST ERADICATOR AMYLASE Stat 09/16/2007 6:21 AM BLISTER RUST ERADICATOR HEPATIC FUNCTION PANEL Stat 8 6:21 AM BLISTER RUST ERADICATOR CARDIAC ENZYMES Routine 09/16/2007 12:22 AM BLISTER RUST ERADICATOR XR CHEST PA OR AP 1 VW Stat 8 6:29 PM BLISTER RUST ERADICATOR CARDIAC ENZYMES Stat 09/15/2007 6:18 PM BLISTER RUST ERADICATOR CBC WITH DIFFERENTIAL Stat 09/15/2007 6:18 PM BLISTER RUST ERADICATOR PTT Stat 09/15/2007 6:18 PM BLISTER RUST ERADICATOR PROTIME-INR Stat 09/15/2007 6:18 PM BLISTER RUST ERADICATOR BASIC METABOLIC PANEL Stat 09/15/2007 6:18 PM BLISTER RUST ERADICATOR documented in this encounter Results * SEDIMENTATION RATE (09/16/2007 6:21 AM BLISTER RUST ERADICATOR) Pathologist [facility] ESR (SEDIMENTATION RATE) 18 0 - 20 mm/hr [facility] Blood specimen (specimen) 09/16/2007 6:21 AM BLISTER RUST ERADICATOR 09/16/2007 8:50 AM BLISTER RUST ERADICATOR William Ramires MD HEMATOLOGY ORDERABLES Final Result Performing Organization Address [facility] de Phone Number [facility] [address] [place] [address] * AMYLASE (09/16/2007 6:21 AM BLISTER RUST ERADICATOR) Pathologist [facility] AMYLASE 61 20 - 104 U/L [facility] Blood specimen (specimen) 09/16/2007 6:21 AM BLISTER RUST ERADICATOR 09/16/2007 8:20 AM BLISTER RUST ERADICATOR William Ramires MD CHEMISTRY ORDERABLES Final Result Performing Organization Address [facility] de Phone Number [facility] [address] [place] [address] * HEPATIC FUNCTION PANEL (09/16/2007 6:21 AM BLISTER RUST ERADICATOR) BILIRUBIN DIRECT 0.3 0.0 - 0.4 mg/dL [facility] AST 22 8 - 33 U/L [facility] ALBUMIN 4.4 3.5 - 5.0 g/dL [facility] ALT 34 4 - 36 IU/L [facility] ALKALINE PHOSPHATASE 76 25 - 100 U/L [facility] BILIRUBIN TOTAL 1.1 0.3 - 1.2 mg/dL [facility] TOTAL PROTEIN 7.0 6.3 - 8.2 g/dL [facility] Comment:Slight Lipemia Blood specimen (specimen) 09/16/2007 6:21 AM BLISTER RUST ERADICATOR 09/16/2007 8:20 AM BLISTER RUST ERADICATOR William Ramires MD CHEMISTRY ORDERABLES Final Result Performing Organization Address [facility] Phone Number [facility] [address] [place] [address] * LIPASE (09/16/2007 6:21 AM BLISTER RUST ERADICATOR) LIPASE 40 6 - 51 U/L [facility] Blood specimen (specimen) 09/16/2007 6:21 AM BLISTER RUST ERADICATOR 09/16/2007 8:20 AM BLISTER RUST ERADICATOR William Ramires MD CHEMISTRY ORDERABLES Final Result Performing Organization Address [facility] Number [facility] [address] [place] [address] * CARDIAC ENZYMES (09/16/2007 6:21 AM BLISTER RUST ERADICATOR) TROPONIN I <0.1 0.0 - 1.3 ng/mL [facility] CKMB 0.4 0.0 - 5.0 ng/mL [facility] Blood specimen (specimen) 09/16/2007 6:21 AM BLISTER RUST ERADICATOR 09/16/2007 6:27 AM BLISTER RUST ERADICATOR Allen Gaspar DO CHEMISTRY ORDERABLES Final Result Performing Organization Address [facility] de Phone Number [facility] [address] [place] [address] * CARDIAC ENZYMES (09/16/2007 12:22 AM BLISTER RUST ERADICATOR) TROPONIN I <0.1 0.0 - 1.3 ng/mL [facility] CKMB 0.4 0.0 - 5.0 ng/mL [facility] Blood specimen (specimen) 09/16/2007 12:22 AM BLISTER RUST ERADICATOR 09/16/2007 12:28 AM BLISTER RUST ERADICATOR Allenhair Gaspar DO CHEMISTRY ORDERABLES Final Result [facility] [address] [place] [address] * XR CHEST PA OR AP (09/15/2007 6:29 PM BLISTER RUST ERADICATOR) Anatomical Region Laterality Modality Chest Other 09/15/2007 6:29 PM BLISTER RUST ERADICATOR Narrative 09/15/2007 6:30 PM BLISTER RUST ERADICATOR Exam: Chest - PA Date/Time of Exam: [...] (ABNORMAL) BASIC METABOLIC PANEL (09/15/2007 6:18 PM BLISTER RUST ERADICATOR) Pathologist [facility] GLUCOSE 87 70 - 110 mg/dL [facility] CHLORIDE 104 95 - 110 mEq/L [facility] ANION GAP 15 9 - 20 mEq/L [facility] SODIUM 142 136 - 145 mEq/L [facility] BUN 19 9 - 20 mg/dL [facility] CO2 27 22 - 32 mmol/l [facility] POTASSIUM 4.1 3.5 - 5.0 mEq/L [facility] OSMOLALITY, CALCULATED 293 275 - 295 mOsm/Kg [facility] CREATININE 1.0 0.7 - 1.5 mg/dL [facility] CALCIUM 10.7(H) 8.4 - 10.5 mg/dL [facility] Blood specimen (specimen) 09/15/2007 6:18 PM BLISTER RUST ERADICATOR 09/15/2007 6:22 PM BLISTER RUST ERADICATOR Allen Gaspar DO CHEMISTRY ORDERABLES Final Result Performing Organization Address City/State/[facility] Co de Phone Number [facility] [address] [place] [address] * (ABNORMAL) CBC WITH DIFFERENTIAL (09/15/2007 6:18 PM BLISTER RUST ERADICATOR) [facility] BASOPHILS 0.2 0.0 - 1.0 % [facility] MPV 11.0 8.9 - 12.8 Fl [facility] BASOPHILS ABSOLUTE 0.0 0.0 - 0.2 K/ul [facility] MCV 84.5 84.0 - 103.0 Fl [facility] MONOCYTES 7.4 2.0 - 10.0 % [facility] MONOCYTE ABSOLUTE 0.7(H) 0.1 - 0.6 K/ul [facility] HEMOGLOBIN 14.3 14.0 - 18.0 g/dL [facility] NEUTROPHILS 66.0 42.2 - 75.2 % [facility] RDW 12.2 11.0 - 14.5 % [facility] NEUTROPHIL ABSOLUTE 6.2 2.0 - 8.0 K/ul [facility] WBC 9.3 4.5 - 11.0 K/ul [facility] MCH 28.8 27.0 - 34.0 pg [facility] EOSINOPHIL ABSOLUTE 0.3 0.0 - 0.7 K/ul [facility] EOSINOPHILS 3.3 0.0 - 7.0 % [facility] HEMATOCRIT 42.0 41.0 - 53.0 % [facility] PLATELETS 282 140 - 440 K/ul [facility] LYMPHOCYTE ABSOLUTE 2.2 1.2 - 4.0 K/ul [facility] LYMPHOCYTES 23.1(L) 24.0 - 44.0 % [facility] RBC 4.97 4.60 - 6.20 Mil/ul [facility] MCHC 34.0 30.0 - 35.0 g/dL [facility] Blood specimen (specimen) 09/15/2007 6:18 PM BLISTER RUST ERADICATOR 09/15/2007 6:22 PM BLISTER RUST ERADICATOR Allen Gaspar DO HEMATOLOGY ORDERABLES Maci l Result Performing Organization Address [facility] de Phone Number [facility] [address] [place] [address] * PTT (09/15/2007 6:18 PM BLISTER RUST ERADICATOR) PTT 28.0 21.6 - 35.6 Secs [facility] Comment: Therapeutic Range: Hi-level PE/DVT heparin protocol 80.1 -95.0 sec Lo-level PE/DVT heparin protocol 67.1 - 80.0 sec Cardiac Heparin Protocol 67.1 - 85.0 sec Neuro Heparin Protocol 67.1 - 80.0 sec As of 07/10/2006 note change in APTT Normal Range. Blood specimen (specimen) 09/15/2007 6:18 PM BLISTER RUST ERADICATOR 09/15/2007 6:22 PM BLISTER RUST ERADICATOR Allen Gaspar DO HEMATOLOGY ORDERABLES Maci l Result Performing Organization Address City/State/[facility] Co de Phone Number [facility] [address] [place] [address] * PROTIME-INR (09/15/2007 6:18 PM BLISTER RUST ERADICATOR) PROTIME 14.3 12.8 - 15.8 Secs [facility] Comment:As of 2007 not e change in normal range. INR 1.0 [facility] Comment: ansi Expected Values for INR: DVT/PE Goal INR 2.5; range 2.0 - 3.0 Valve Replacement Tissue Goal INR 2.5; range 2.0 - 3.0 Mechanical Goal INR 3.0; range 2.5 - 3.5 POST-OH Goal INR 2.5; range 2.0 - 3.0 or Goal 3.0; range 2.5 - 3.5 Atrial Fibrillation Goal INR 2.5; range 2.0 - 3.0 Ischemic Stroke Goal INR 2.5; range 2.0 - 3.0 For additional information see Guidelines for Anticoagulation available from the pharmacy Hitesh Ye. [phone] Blood specimen (specimen) 09/15/2007 6:18 PM BLISTER RUST ERADICATOR 09/15/2007 6:22 PM BLISTER RUST ERADICATOR Allen Gaspar DO HEMATOLOGY ORDERABLES Maci l Result Performing Organization Address [facility] Phone Number [facility] [address] [place] [address] * CARDIAC ENZYMES (09/15/2007 6:18 PM BLISTER RUST ERADICATOR) CKMB 0.4 0.0 - 5.0 ng/mL [facility] TROPONIN I <0.1 0.0 - 1.3 ng/mL [facility] Blood specimen (specimen) 09/15/2007 6:18 PM BLISTER RUST ERADICATOR 09/15/2007 6:22 PM BLISTER RUST ERADICATOR Allen Gaspar DO CHEMISTRY ORDERABLES Final Result Performing Organization Address [facility] Phone Number [facility] [address] [place] [address] documented in this encounter Visit Diagnoses Diagnosis Chest pain, unspecified documented in this encounter Care Teams Lubrication Worker Relationship Specialty Start Date End Date Primitivo Crowder MD [address] [place] [address] PCP - General Family Practice 05/20/14 documented as of this encounter
--- OUTSIDE RECORDS SUMMARY | 2025-05-29 12:03 | XMS_ITS | Encounter Summary ---
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) Social History Tobacco Use Types Packs/Day Years Used Date Smoking Tobacco: Never Assessed Sex and Gender Information Value Date Recorded Sex Assigned at Not on file Legal Sex Male 4:47 AM IMMIGRATION PARALEGAL Gender Identity Not on file Sexual Orientation Not on file documented as of this encounter Plan of Treatment Not on file documented as of this encounter Visit Diagnoses Diagnosis 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
--- OUTSIDE RECORDS SUMMARY | 2025-05-29 12:03 | XMS_ITS | Encounter Summary ---
Author Organization [facility] Address [address] [place] [address] Care Team Providers Care Servicing Manager Name Role Phone Primitivo Crowder MD Primary Care Provider [phone] Encounter Details Date Type Department Care Team (Latest Contact Info) Description 12/11/1998 Outpatient Historical [facility] [address] [phone] Primitivo Crowder MD [address] [place] [phone] Unspecified essential hypertension (Primary Dx); Other and unspecified hyperlipidemia; Other convulsions Social History Tobacco Use Types Packs/Day Years Used Date Smoking Tobacco: Never Assessed Sex and Gender Information Value Date Recorded Sex Assigned at Not on file Legal 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
--- OUTSIDE RECORDS SUMMARY | 2025-05-29 12:03 | XMS_ITS | Encounter Summary ---
Author Organization [facility] Address [address] [place] [address] Care Team Providers Care Nfl Player Name Role Phone Primitivo Crowder MD Primary Care Provider [phone] Encounter Details Date Type Department Care Team (Latest Contact Info) Description 03/21/1999 Outpatient Historical 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
--- NOTE | 2025-05-29 12:04 | W.ED.ABDPA2 ---
HPI - Abdominal Pain General: Chief Complaint: Abdominal Pain Stated Complaint: abd pain Time Seen by Provider: 05/29/25 11:58 Source: patient and EMS Mode of arrival: EMS Limitations: no limitations History of Present Illness: 64-year-old male states he been having diffuse abdominal pain over the last 2 weeks. States had a history of a hernia states his pain is currently an 8 out of 10. He denies any vomiting or diarrhea denies any fever states the pain is worse with movement and palpation Related Data Home Medications ?Medication ?Instructions ?Recorded ?Confirmed aspirin 81 mg tablet,delayed 81 mg PO EVERY OTHER DAY 04/29/23 09/10/24 release metformin 1,000 mg tablet,extended mg PO 09/09/23 09/10/24 release 24hr (osmotic) metformin 500 mg tablet,extended 500 mg PO BID 09/09/23 09/10/24 release 24 hr Previous Rx's ?Medication ?Instructions ?Recorded OrthoWedge heel shoe to Left and #1 ea 11/15/22 Right Foot blood-glucose meter ([address] #1 ea 11/19/22 Glucose Monitoring System kit) pen needle, diabetic 32 gauge x #50 ea 11/19/22 1/ (BD Ultra-Fine Micro Pen Needle) carbidopa 25 mg-levodopa 100 mg 1 tab PO TID #90 tabs 09/09/23 tablet Diabetic shoes with 3 sets of #1 ea 09/11/23 insoles toe filler on the right mupirocin 2 % topical ointment 1 applic topical BID 2 weeks #22 10/09/23 grams hydrocodone 5 mg-acetaminophen 325 1 tab PO Q8H PRN pain #7 tabs 04/19/24 mg tablet ketorolac 10 mg tablet 10 mg PO TID PRN pain #10 tabs 04/19/24 ondansetron 4 mg disintegrating 4 mg PO Q6H PRN nausea and 04/19/24 tablet vomiting #14 tabs cephalexin 500 mg capsule 500 mg PO TID #30 caps 09/10/24 polyethylene glycol 3350 17 gram 17 g PO DAILY PRN constipation #14 04/26/25 oral powder packet (Miralax) ea Allergies Allergy/AdvReac Type Severity Reaction Status Date / Time No Known Allergies Allergy Verified 09/10/24 15:02 Review of Systems GI: Reports: abdominal pain PFSH ED PFSH: Medical History Diabetic peripheral neuropathy associated with type 2 diabetes mellitus Psoriasis Hernia Chronic back pain CAD (coronary artery disease) Hypertension Hyperlipidemia History of alcoholism Diabetes Surgical History History of amputation of toe History of appendectomy Hx laparoscopic cholecystectomy Postsurgical percutaneous transluminal coronary angioplasty (PTCA) status Prior to 2006 History of coronary artery bypass graft x 2 2006 Family History Other Family history of premature coronary artery disease Social History Smoking and tobacco/nicotine status: unknown if used tobacco/nicotine Alcohol intake: current Physical Exam Const: COMMON NORMALS: no acute distress, patient oriented x3 and healthy appearing HENMT: COMMON NORMALS: normocephalic and atraumatic HEAD & SCALP: normocephalic and atraumatic Neck/C-Spine: COMMON NORMALS: full ROM and supple Chest: COMMONS NORMALS: normal inspection of the chest and normal palpation of entire chest wall Resp: COMMON NORMALS: normal respiratory effort, No retractions, No use of accessory muscles and clear to auscultation bilaterally AUSCULTATION: clear to auscultation bilaterally Cardio: COMMON NORMALS: regular rate, regular rhythm and No murmurs present (Cardio) RATE: regular rate RHYTHM: regular rhythm GI: COMMON NORMALS: Normal to inspection, nondistended, normoactive bowel sounds present, Soft to palpation and no masses PALPATION: Yes Soft to palpation OTHER: Diffuse tenderness Extremity: COMMON NORMALS: normal to inspection and full ROM Neuro: COMMON NORMALS: patient oriented x3, moves all extremities and no focal motor deficits Psych: COMMON NORMALS: mental status grossly normal, Normal thought process present and cooperative THOUGHT PROCESS: Normal thought process present Skin: COMMON NORMALS: no rashes or lesions noted and no wounds GENERAL SKIN EXAM: no rashes or lesions noted Course Vital Signs: Vital signs: Vital Signs Temperature 98.1 F 05/29/25 11:58 Pulse Rate 73 05/29/25 11:58 Respiratory Rate 18 05/29/25 12:40 Blood Pressure 167/94 05/29/25 11:58 Pulse Oximetry 97 05/29/25 11:58 Oxygen Delivery Me thod Room Air 05/29/25 11:58 MDM - Abdominal Pain Medical Decision Making Patient presents here with abdominal pain differential includes pancreatitis, cholecystitis, appendicitis. Patient's blood work here including white count were normal kidney functions normal as well. Did review his CT that showed no acute abnormalities. His pain has improved here I did go over his labs and imaging with him. Patient diagnosed with undifferentiated abdominal pain I feel he is stable for discharge his follow-up with PCP he understands and agrees to plan he is return if worsening. Medical Records I reviewed the patient's medical records. Lab Data I reviewed the patient's lab results. 05/29/25 12:25 05/29/25 12:25 Labs/Radiology: Radiology Impressions Abdomen/Pelvis CT 05/29/25 12:01 IMPRESSION: 1. Stable mild fatty infiltration of the liver. 2. Stable indeterminate hypodense focus in the liver compared with 04/19/2024. 3. Stable nonobstructing left renal stone. 4. Large amount of fecal content in the colon. 5. Incidental/nonacute findings are listed in the report. Laboratory Results WBC 6.63 10^3/uL (3.29-11.43) 05/29/25 12:25 RBC 4.74 10^6/uL (3.85-5.65) 05/29/25 12:25 Hgb 13.90 g/dL (11.27-16.99) 05/29/25 12:25 Hct 41.6 % (37-53) 05/29/25 12:25 MCV 87.8 fl (82-101) 05/29/25 12:25 MCH 29.3 pg (27-33) 05/29/25 12:25 MCHC 33.4 g/dL (30-55) 05/29/25 12:25 RDW 12.8 % (12.1-15.1) 05/29/25 12:25 Plt Count 355 10^3/cmm (157-399) 05/29/25 12:25 MPV 10.1 fL (7.4-10.4) 05/29/25 12:25 Neut % (Auto) 65.7 % 05/29/25 12:25 Lymph % (Auto) 17.9 % 05/29/25 12:25 Cassia % (Auto) 7.4 % 05/29/25 12:25 Eos % (Auto) 7.1 % 05/29/25 12:25 Baso % (Auto) 0.5 % 05/29/25 12: Neut # (Auto) 4.36 10^3/uL (1.8-7.7) 05/29/25 12:25 Lymph # (Auto) 1.2 10^3/uL (0.8-4.8) 05/29/25 12:25 Cassia # (Auto) 0.5 10^3/uL (0.2-0.9) 05/29/25 12:25 Eos # (Auto) 0.5 10^3/uL (0.0-0.8) 05/29/25 12:25 Baso # (Auto) 0.0 10^3/uL (0.0-0.1) 05/29/25 12:25 Nucleated RBC % (auto) 0 % 05/29/25 12: Nucleated RBCs # 0.0 /100WBC 05/29/25 12:25 Sodium 138 mmol/L (136-145) 05/29/25 12:25 Potassium 4.2 mmol/L (3.5-5.1) 05/29/25 12:25 Chloride 99 mmol/L (98-107) 05/29/25 12:25 Carbon Dioxide 26 mmol/L (22-29) 05/29/25 12:25 Anion Gap 17.2 (5-19) 05/29/25 12:25 BUN 11 mg/dL (8-23) 05/29/25 12:25 Creatinine 0.8 mg/dL (0.7-1.2) 05/29/25 12:25 GFR Calculation 96.7 mL/min (90-130) 05/29/25 12:25 Glucose 149 mg/dL (65-115) H 05/29/25 12:25 Calculated Osmolality 288 mOsm/kg (285-295) 05/29/25 12:25 Calcium 8.6 mg/dL (8.5-10.5) 05/29/25 12:25 Total Bilirubin 1.4 mg/dL (0.15-1.2) H 05/29/25 12:25 AST 18 U/L (0-40) 05/29/25 12:25 ALT 24 U/L (0-41) 05/29/25 12:25 Alkaline Phosphatase 99 U/L (40-130) 05/29/25 12:25 Total Protein 7.2 g/dL (6.6-8.7) 05/29/25 12:25 Albumin 4.3 g/dL (3.5-5.2) 05/29/25 12:25 Globulin 2.9 g/dL (1.3-4.6) 05/29/25 12:25 Lipase 31 U/L (13-60) 05/29/25 12:25 All radiology interpretation(s) finalized by discharge Discharge Plan Discharge Patient Disposition: Home Clinical Impression: Abdominal pain Condition: Stable Prescriptions: No Action metformin 1,000 mg tablet extended release 24hr PO metformin 500 mg tablet extended release 24 hr 500 mg PO BID carbidopa-levodopa 25-100 mg tablet 1 tab PO TID Qty: 90 5RF (DME) Diabetic shoes with 3 sets of insoles toe filler on the right See Rx Instructions .Route .MEDSUPPLY Qty: 1 0RF Rx Instructions: As directed by the shoe allison cephalexin 500 mg capsule 500 mg PO TID Qty: 30 0RF mupirocin 2 % ointment 1 applic topical BID 14 Days Qty: 22 2RF (DME) OrthoWedge heel shoe to Left and Right Foot See Rx Instructions .Route .MEDSUPPLY Qty: 1 0RF Rx Instructions: As directed [facility] [employer] [facility] ([facility]) pen needle, diabetic [BD Ultra-Fine Micro Pen Needle] 32 gauge x 1/4 needle See Rx Instructions .ROUTE .MEDSUPPLY Qty: 50 0RF Rx Instructions: As directed ([facility]) blood-glucose meter [CareTouch Glucose Monitoring] Kit See Rx Instructions .Route Qty: 1 0RF Rx Instructions: As directed hydrocodone-acetaminophen 5-325 mg tablet 1 tab PO Q8H PRN (Reason: pain) Qty: 7 0RF ketorolac 10 mg tablet 10 mg PO TID PRN (Reason: pain) Qty: 10 0RF ondansetron 4 mg tablet,disintegrating 4 mg PO Q6H PRN (Reason: nausea and vomiting) Qty: 14 0RF aspirin 81 mg tablet,delayed release (DR/EC) 81 mg PO EVERY OTHER DAY polyethylene glycol 3350 [Miralax] 17 gram powder in packet 17 g PO DAILY PRN (Reason: constipation) Qty: 14 0RF Discharge Orders: Discharge ED (Routine); Ordered 05/29/25 Ordered By: Annette Still Discharge Diet: Advance as tolerated Discharge Activity: Resume usual activity Patient Instructions: Abdominal Pain (ED) Print Language: Montenegrin Coding Level of Care Code ED Internet Merchant for Freddy Ocampo
--- OUTSIDE RECORDS SUMMARY | 2025-05-29 12:04 | XMS_ITS | Encounter Summary ---
Author Organization [facility] Address [address] [place] [address] Care Team Providers Care Post Tensioning Ironworker Name Role Phone Primitivo Crowder MD Primary Care Provider [phone] Encounter Details Date Type Department Care Team (Latest Contact Info) Description 06/30/2000 Outpatient Historical [address] [phone] Primitivo Crowder MD [address] [place] [phone] Other and unspecified hyperlipidemia (Primary Dx); Nonspecific abnormal results of liver function study Social History Tobacco Use Types Packs/Day Years Used Date Smoking Tobacco: Never Assessed Sex and Gender Information Value Date Recorded Sex Assigned at Not on file Legal Sex Male 4:47 AM CREDIT BALANCE SPECIALIST Gender Identity Not on file Sexual Orientation Not on file documented as of this encounter Plan of Treatment Not on file documented as of this encounter Visit Diagnoses Diagnosis Other and unspecified hyperlipidemia- Primary Nonspecific abnormal results of liver function study documented in this encounter Care Teams Post Tensioning Ironworker Relationship Specialty Start Date End Date Primitivo Crowder MD [address] [place] [phone] PCP - General Family Practice 05/20/14 documented as of this encounter
--- OUTSIDE RECORDS SUMMARY | 2025-05-29 12:04 | XMS_ITS | Encounter Summary ---
Author Organization [facility] Address [address] [place] [address] Care Team Providers Care Insight Leader Name Role Phone Primitivo Crowder MD Primary Care Provider [phone] Encounter Details Date Type Department Care Team (Latest Contact Info) Description 03/26/2001 Outpatient Historical [facility] [place] [address] [phone] Mg Young MD [address] [place] [address] Chest pain, unspecified (Primary Dx) Social History Tobacco Use Types Packs/Day Years Used Date Smoking Tobacco: Never Assessed Sex and Gender Information Value Date Recorded Sex Assigned at Not on file Legal Sex Male 4:47 AM MEDIA SERVICES SPECIALIST Gender Identity Not on file Sexual Orientation Not on file documented as of this encounter Plan of Treatment Not on file documented as of this encounter Visit Diagnoses Diagnosis Chest pain, unspecified- Primary documented in this encounter Care Teams Insight Leader Relationship Specialty Start Date End Date Primitivo Crowder MD [address] [place] [phone] PCP - General Family Practice 05/20/14 documented as of this encounter
--- OUTSIDE RECORDS SUMMARY | 2025-05-29 12:04 | XMS_ITS | Encounter Summary ---
Author Organization [facility] Address [address] [place] [address] Care Team Providers Care Inward Toll Operator Name Role Phone Primitivo Crowder MD Primary Care Provider [phone] Encounter Details Date Type Department Care Team (Latest Contact Info) Description 10/17/1999 Outpatient Historical [address] [phone] Primitivo Crowder MD [address] [place] [phone] Nonspecific abnormal results of liver function study (Primary Dx) Social History Tobacco Use Types Packs/Day Years Used Date Smoking Tobacco: Never Assessed Sex and Gender Information Value Date Recorded Sex Assigned at Not on file Legal Sex Male 4: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
--- OUTSIDE RECORDS SUMMARY | 2025-05-29 12:04 | XMS_ITS | Encounter Summary ---
Author Organization 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 Chargemaster Specialist sections of the gallbladder wall and the cystic duct are submitted in A1. DLS/CEP INTERFACE SYSTEM 05/09/2008 8:37 AM CDT us Bernardino Pickett MD PATHOLOGY/CYTOLOGY ORDERABL ES Final Result INTERFACE SYSTEM Refer to clinic/hospital department * (ABNORMAL) CBC WITH DIFFERENTIAL (05/09/2008 6:05 AM CDT) EOSINOPHIL ABSOLUTE 0.4 0.0 - 0.7 K/ul [facility] EOSINOPHILS 4.2 0.0 - 7.0 % [facility] RBC 5.35 4.60 - 6.20 Mil/ul [facility] MCHC 33.3 30.0 - 35.0 g/dL [facility] LYMPHOCYTE ABSOLUTE 2.1 1.2 - 4.0 K/ul [facility] LYMPHOCYTES 24.7 24.0 - 44.0 % [facility] MCV 83.6(L) 84.0 - 103.[address] [facility] BASOPHILS 0.2 0.0 - 1.0 % [facility] MPV 10.4 8.9 - 12.[address] [facility] BASOPHILS ABSOLUTE 0.0 0.0 - 0.2 K/ul [facility] HEMOGLOBIN 14.9 14.0 - 18.0 g/dL [facility] MONOCYTES 8.3 2.0 - 10.0 % [facility] RDW 12.9 11.0 - 14.5 % [facility] MONOCYTE ABSOLUTE 0.7(H) 0.1 - 0.6 K/ul [facility] WBC 8.6 4.5 - 11.0 K/ul [facility] NEUTROPHILS 62.6 42.2 - 75.2 % [facility] MCH 27.9 27.0 - 34.[address] [facility] NEUTROPHIL ABSOLUTE 5.4 2.0 - 8.0 K/ul [facility] HEMATOCRIT 44.7 41.0 - 53.0 % [facility] PLATELETS 280 140 - 440 K/ul [facility] Blood specimen (specimen) 05/09/2008 6:05 AM CDT 05/09/2008 6:13 AM CDT Bernardino Pickett MD HEMATOLOGY ORDERABLES Final Result INTERFACE SYSTEM Refer to clinic/hospital department [facility] IA# [id number] [address] [place] [address] * COMPREHENSIVE METABOLIC PANEL (05/09/2008 6:05 AM CDT) GLUCOSE 110 70 - 110 mg/dL [facility] CHLORIDE 106 95 - 110 mEq/L [facility] ALBUMIN/GLOBULIN RATIO 2.0 1.0 - 2.3 [facility] ALKALINE PHOSPHATASE 60 25 - 100 U/L [facility] SODIUM 141 136 - 145 mEq/L [facility] BILIRUBIN TOTAL 1.2 0.3 - 1.2 mg/dL [facility] TOTAL PROTEIN 7.4 6.3 - 8.2 g/dL [facility] BUN 17 9 - 20 mg/dL [facility] AST 25 8 - 33 U/L [facility] CO2 29 22 - 32 mmol/l [facility] ANION GAP 10 9 - 20 mEq/L [facility] ALBUMIN 4.9 3.5 - 5.0 g/dL [facility] POTASSIUM 4.1 3.5 - 5.0 mEq/L [facility] GLOBULIN (CALC) 2.5 2.4 - 3.9 g/dL [facility] CREATININE 1.1 0.7 - 1.5 mg/dL [facility] CALCIUM 10.2 8.4 - 10.5 mg/dL [facility] OSMOLALITY, CALCULATED 292 275 - 295 mOsm/Kg [facility] ALT 29 4 - 36 IU/L [facility] Blood specimen (specimen) 05/09/2008 6:05 AM CDT 05/09/2008 6:13 AM CDT us Bernardino Pickett MD CHEMISTRY ORDERABLES Final Result Performing Organization Address City/State/[facility] Co de Phone Number INTERFACE SYSTEM Refer to clinic/hospital department [facility] CLIA# [id number] [address] [place] [address] documented in this encounter Visit Diagnoses Not on filedocumented in this encounter Care Teams Type Rolling Machine Operator Relationship Specialty Start Date End Date Primitivo Crowder MD [address] [place] [address] PCP - General Family Practice 05/20/14 documented as of this encounter
--- OUTSIDE RECORDS SUMMARY | 2025-05-29 12:04 | XMS_ITS | Encounter Summary ---
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
--- OUTSIDE RECORDS SUMMARY | 2025-05-29 12:04 | XMS_ITS | Encounter Summary ---
Author Organization [facility] Address [address] [place] [address] Care Team Providers Care Enterprise Sales Executive Name Role Phone Primitivo Crodwer MD Primary Care Provider [phone] Encounter Details Date Type Department Care Team (Latest Contact Info) Description 07/30/2000 Outpatient Historical [address] [phone] Primitivo Crowder MD [address] [place] [phone] Abdominal pain, unspecified site (Primary Dx); Other and unspecified hyperlipidemia; Unspecified essential hypertension; Dysthymic disorder Social History Tobacco Use Types Packs/Day Years Used Date Smoking Tobacco: Never Assessed Sex and Gender Information Value Date Recorded Sex Assigned at Not on file Legal 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
--- OUTSIDE RECORDS SUMMARY | 2025-05-29 12:04 | XMS_ITS | Encounter Summary ---
Author Organization [facility] Address [address] [place] [address] Care Team Providers Care Retread Operator Name Role Phone Primitivo Crowder MD Primary Care Provider Encounter Details Date Type Department Care Team (Latest Contact Info) Description 07/08/2002 Outpatient Historical [facility] [address] [phone] Primitivo Crowder MD [address] [place] [phone] HYPERLIPIDEMIA NEC/NOS (Primary Dx) Social History Tobacco Use Types Packs/Day Years Used Date Smoking Tobacco: Never Assessed Sex and Gender Information Value Date Recorded Sex Assigned at Not on file Legal 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
--- OUTSIDE RECORDS SUMMARY | 2025-05-29 12:04 | XMS_ITS | Encounter Summary ---
Author Organization [facility] Address [address] [place] [address] Care Team Providers Care Cigarette Paper Tester Name Role Phone Primitivo Crowder MD Primary Care Provider Encounter Details Date Type Department Care Team (Latest Contact Info) Description 10/31/2000 Outpatient Historical [facility] [address] [phone] Primitivo Crowder MD [address] [place] [phone] Backache, unspecified (Primary Dx); Sprain lumbar region; Abdominal pain, unspecified site; Unspecified essential hypertension Social History Tobacco Use Types Packs/Day Years Used Date Smoking Tobacco: Never Assessed Sex and Gender Information Value Date Recorded Sex Assigned at Not on file 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
--- OUTSIDE RECORDS SUMMARY | 2025-05-29 12:04 | XMS_ITS | Encounter Summary ---
Author Organization [facility] Address [address] [place] [address] Care Team Providers Care Furnace Repair Mechanic Name Role Phone Primitivo Crowder MD Primary Care Provider [phone] Encounter Details Date Type Department Care Team (Latest Contact Info) Description 12/30/2000 Outpatient Historical [address] [phone] Primitivo Crowder MD [address] [place] [address] Other and unspecified hyperlipidemia (Primary Dx); Unspecified essential hypertension; Irritable bowel syndrome; Dysthymic disorder Social History Tobacco Use Types Packs/Day Years Used Date Smoking Tobacco: Never Assessed Sex and Gender Information Value Date Recorded Sex Assigned at Not on file Legal Sex Male 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
--- OUTSIDE RECORDS SUMMARY | 2025-05-29 12:04 | XMS_ITS | Encounter Summary ---
Author Organization [facility] Address [address] [facility] Attn: [place] [address] Care Team Providers Care Welcome Center Attendant Name Role Phone Primitivo Crowder MD Primary Care Provider [phone] Encounter Details Date Type Department Care Team (Late st Contact Info) Description 04/13/2001 Outpatient Historical Primitivo Crowder MD [address] [place] [address] Social History Tobacco Use Types Packs/Day Years Used Date Smoking Tobacco: Never Assessed Sex and Gender Information Value Date Recorded Sex Assigned at Not on file Legal Sex Male 4:47 AM NEWS ASSISTANT Gender Identity Not on file Sexual Orientation Not on file documented as of this encounter Plan of Treatment Not on file documented as of this encounter Visit Diagnoses Not on filedocumented in this encounter Care Teams Welcome Center Attendant Relationship Specialty Start Date End Date Primitivo Crowder MD [address] [place] [address] PCP - General Family Practice 05/20/14 documented as of this encounter
--- OUTSIDE RECORDS SUMMARY | 2025-05-29 12:04 | XMS_ITS | Encounter Summary ---
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
--- OUTSIDE RECORDS SUMMARY | 2025-05-29 12:04 | XMS_ITS | Encounter Summary ---
Author Organization [facility] Address [address] [place] [address] Care Team Providers Care Waist Fitter Name Role Phone Primitivo Crowder MD Primary Care Provider [phone] Encounter Details Date Type Department Care Team (Latest Contact Info) Description 11/16/2001 Outpatient Historical [facility] [place] [address] [phone] Erica Garber MD [address] [place] [address] SPRAIN NEC (Primary Dx); SPASM OF MUSCLE Social History Tobacco Use Types Packs/Day Years Used Date Smoking Tobacco: Never Assessed Sex and Gender Information Value Date Recorded Sex Assigned at Not on file Legal 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
--- OUTSIDE RECORDS SUMMARY | 2025-05-29 12:04 | XMS_ITS | Encounter Summary ---
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
--- OUTSIDE RECORDS SUMMARY | 2025-05-29 12:04 | XMS_ITS | Encounter Summary ---
Author Organization [facility] Address [address] [place] [address] Care Team Providers Care Human Resources Department Supervisor Name Role Phone Primitivo Crowder MD Primary Care Provider [phone] Encounter Details Date Type Department Care Team (Latest Contact Info) Description 07/20/[address] [facility] [address] [phone] Primitivo Crowder MD [address] [place] [phone] HYPERTENSION NOS (Primary Dx); MIXED HYPERLIPIDEMIA; DIZZINESS AND GIDDINESS Social History Tobacco Use Types Packs/Day Years Used Date Smoking Tobacco: Never Assessed Sex and Gender Information Value Date Recorded Sex Assigned at Not on file Legal Sex Male 4:47 AM MEDIA CENTER SPECIALIST Gender Identity Not on file Sexual Orientation Not on file documented as of this encounter Plan of Treatment Not on file documented as of this encounter Visit Diagnoses Diagnosis Unspecified essential hypertension- Primary Mixed hyperlipidemia Dizziness and giddiness documented in this encounter Care Teams Human Resources Department Supervisor Relationship Specialty Start Date End Date Primitivo Crowder MD [address] [phone] PCP - General Family Practice 05/20/14 documented as of this encounter
--- OUTSIDE RECORDS SUMMARY | 2025-05-29 12:04 | XMS_ITS | Encounter Summary ---
Author Organization [facility] Address [address] [facility] Attn: [place] [address] Care Team Providers Care Physicist [place] Name Role Phone Primitivo Crowder MD Primary Care Provider [phone] Encounter Details Date Type Department Care Team (Late st Contact Info) Description 03/29/2002 Outpatient Historical Primitivo Crowder MD [address] [place] [address] Social History Tobacco Use Types Packs/Day Years Used Date Smoking Tobacco: Never Assessed Sex and Gender Information Value Date Recorded Sex Assigned at Not on file Legal 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
--- OUTSIDE RECORDS SUMMARY | 2025-05-29 12:04 | XMS_ITS | Encounter Summary ---
Author Organization [facility] Address [address] [place] [address] Care Team Providers Care Analytics Specialist Name Role Phone Primitivo Crowder MD Primary Care Provider [phone] Encounter Details Date Type Department Care Team (Late st Contact Info) Description 04/05/2008 Outpatient Historical [facility] [address] [place] [phone] Primitivo Crowder MD [address] [place] [address] Abdominal Pain Social History Tobacco Use Types Packs/Day Years Used Date Smoking Tobacco: Never Assessed Sex and Gender Information Value Date Recorded Sex Assigned at Not on file Legal 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
--- OUTSIDE RECORDS SUMMARY | 2025-05-29 12:04 | XMS_ITS | Encounter Summary ---
Author Organization [facility] Address [address] [place] [address] Care Team Providers Care Accounts Receivable Processor Name Role Phone Primitivo Crowder MD Primary Care Provider [phone] Encounter Details Date Type Department Care Team (Latest Contact Info) Description 07/14/2000 Outpatient Historical [address] [phone] Primitivo Crowder MD [address] [place] [phone] Acute upper respiratory infections of unspecified site (Primary Dx); Irritable bowel syndrome; Unspecified essential hypertension; Pure hyperglyceridemia Social History Tobacco Use Types Packs/Day Years Used Date Smoking Tobacco: Never Assessed Sex and Gender Information Value Date Recorded Sex Assigned at Not on file Legal Sex Male 4:47 AM NICU RN Gender Identity Not on file Sexual Orientation Not on file documented as of this encounter Plan of Treatment Not on file documented as of this encounter Visit Diagnoses Diagnosis Acute upper respiratory infections of unspecified site- Primary Irritable bowel syndrome Unspecified essential hypertension Pure hyperglyceridemia documented in this encounter Care Teams Accounts Receivable Processor Relationship Specialty Start Date End Date Primitivo Crowder MD [address] [place] [phone] PCP - General Family Practice 05/20/14 documented as of this encounter
--- OUTSIDE RECORDS SUMMARY | 2025-05-29 12:04 | XMS_ITS | Encounter Summary ---
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
--- OUTSIDE RECORDS SUMMARY | 2025-05-29 12:04 | XMS_ITS | Encounter Summary ---
Author Organization [facility] Address [address] [place] [address] Care Team Providers Care Newspaper Writer Name Role Phone Primitivo Crowder MD Primary Care Provider [phone] Encounter Details Date Type Department Care Team (Latest Contact Info) Description 04/30/2002 Outpatient Historical [facility] [address] [phone] Primitivo Crowder MD [address] [place] [phone] ANAL FISSURE (Primary Dx); MIXED HYPERLIPIDEMIA; ABNORMAL LIVER FUNCTION STUDY; HYPERTENSION NOS Social History Tobacco Use Types Packs/Day Years Used Date Smoking Tobacco: Never Assessed Sex and Gender Information Value Date Recorded Sex Assigned at Not on file Legal Sex Male 4: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
--- OUTSIDE RECORDS SUMMARY | 2025-05-29 12:04 | XMS_ITS | Encounter Summary ---
Author Organization [facility] Address [address] [facility] Attn: [place] [address] Care Team Providers Care Space Controller Name Role Phone Primitivo Crowder MD Primary Care Provider Encounter Details Date Type Department Care Team (Late st Contact Info) Description 03/06/2001 Outpatient Historical Non-Staff, Physician NO ADDRESS ON FILE Social History Tobacco Use Types Packs/Day Years Used Date Smoking Tobacco: Never Assessed Sex and Gender Information Value Date Recorded Sex Assigned at Not on file Legal Sex Male 4:47 AM RISK MODELER Gender Identity Not on file Sexual Orientation Not on file documented as of this encounter Plan of Treatment Not on file documented as of this encounter Visit Diagnoses Not on filedocumented in this encounter Care Teams Space Controller Relationship Specialty Start Date End Date Primitivo Crowder MD [address] [place] [address] PCP - General Family Practice 05/20/14 documented as of this encounter
--- OUTSIDE RECORDS SUMMARY | 2025-05-29 12:04 | XMS_ITS | Encounter Summary ---
Author Organization [facility] Address [address] [place] [address] Care Team Providers Care Building Maintenance Superintendent Name Role Phone Primitivo Crowder MD Primary Care Provider [phone] Encounter Details Date Type Department Care Team (Late st Contact Info) Description 09/21/2007 Outpatient Historical [facility] Medicine [address] [phone] Primitivo Crowder MD [address] [place] [phone] Social History Tobacco Use Types Packs/Day Years Used Date Smoking Tobacco: Never Assessed Sex and Gender Information Value Date Recorded Sex Assigned at Not on file Legal Sex Male 4:47 AM MARKET MASTER Gender Identity Not on file Sexual Orientation Not on file documented as of this encounter Progress Notes * Primitivo Crowder MD - 09/21/2007 12:00 AM CST [facility] [address] [place] [address] PATIENT NAME: Hudson Griffin CHART #: [id number] DATE OF SERVICE: 09/21/2007 DATE OF : 1960 Patient Name: Hudson Griffin DOS: 09/21/2007 : 1960 VITALS: Weight: 210.0 pounds. Pulse: 88. BP: 130/86. SUBJECTIVE: 46-year-old male comes to followup 24-hour hospital stay at [facility] [place] from 09/15 through . He presented for [...] p.r.n. He is agreeable. Primitivo Crowder M.D. [facility] Electronically Signed by Primitivo Crowder M.D. 10/22/2007 09:02 , 6:39 P A, 580 Document #: [id number] cc: documented in this encounter Plan of Treatment Not on file documented as of this encounter Procedures Procedure Name Priority Date/Time Associated Diagnosis Comments HEPATIC FUNCTION PANEL Routine 09/22/2007 9:15 AM MARKET MASTER LIPID PANEL Routine 09/22/2007 9:15 AM MARKET MASTER BASIC METABOLIC PANEL Routine 09/22/2007 9:15 AM MARKET MASTER documented in this encounter Results * (ABNORMAL) LIPID PANEL (09/22/2007 9:15 AM MARKET MASTER) CHOLESTEROL 119 100 - 200 MG/DL [facility] TRIGLYCERIDE 218(H) 0 - 179 MG/DL [facility] HDL 22(L) 40 - 60 MG/DL [facility] LDL CALCULATED 53(L) 58 - 100 MG/DL [facility] LDL CALCULATED CALCULATED LDL REFERENCE: < 100 Optimal 100 - 129 Near Optimal 130 - 159 Borderline High > 160 High Risk [facility] CHOL/HDL RATIO 5.41(H) 3.43 - 4.97 RATIO [facility] 09/22/2007 9:15 AM MARKET MASTER 09/22/2007 9:16 AM MARKET MASTER Primitivo Crowder MD CHEMISTRY ORDERABLES Final Resu lt [facility] IA# [id number] [address] [place] [id number] * (ABNORMAL) HEPATIC FUNCTION PANEL (09/22/2007 9:15 AM MARKET MASTER) TOTAL PROTEIN 7.1 5.9 - 8.2 G/DL [facility] ALBUMIN 4.6 3.4 - 4.8 G/DL [facility] AST 22 12 - 43 IU/L [facility] ALT 41 4 - 51 IU/L [facility] ALKALINE PHOSPHATASE 73 40 - 129 IU/L [facility] BILIRUBIN TOTAL 1.2(H) 0.2 - 1.0 MG/DL [facility] BILIRUBIN DIRECT 0.3 0.0 - 0.3 MG/DL [facility] 09/22/2007 9:15 AM MARKET MASTER 09/22/2007 9:16 AM MARKET MASTER Primitivo Crowder MD CHEMISTRY ORDERABLES Final Resu lt [facility] CLIA# [id number] [address] [place] [id number] * (ABNORMAL) BASIC METABOLIC PANEL (09/22/2007 9:15 AM MARKET MASTER) GLUCOSE 104(H) 70 - 100 MG/DL [facility] GLUCOSE Reference interval only valid for fasting specimens [facility] BUN 18 6 - 20 MG/DL [facility] CREATININE 1.0 0.5 - 1.2 MG/DL [facility] SODIUM 141 134 - 145 MEQ/L [facility] POTASSIUM 4.6 3.5 - 5.1 MEQ/L [facility] CHLORIDE 102 96 - 108 MEQ/L [facility] CO2 29 22 - 32 MMOL/L [facility] CALCIUM 10.4 8.5 - 10.6 MG/DL [facility] ANION GAP 15 9 - 20 MEQ/L [facility] OSMOLALITY, CALCULATED 293 275 - 295 MOSM/KG [facility] GFR >60 >60 mL/min/1. 73m [facility] GFR, >60 >60 mL/min/1. 73m [facility] 09/22/2007 9:15 AM MARKET MASTER 09/22/2007 9:16 AM MARKET MASTER us Primitivo Crowder MD CHEMISTRY ORDERABLES Final Resu lt [facility]# [id number] [address] [place] [address] documented in this encounter Visit Diagnoses Not on filedocumented in this encounter Care Teams Building Maintenance Superintendent Relationship Specialty Start Date End Date Primitivo Crowder MD [address] [place] [address] PCP - General Family Practice 05/20/14 documented as of this encounter
--- OUTSIDE RECORDS SUMMARY | 2025-05-29 12:04 | XMS_ITS | Encounter Summary ---
Author Organization [facility] Address [address] [place] [address] Care Team Providers Care Hand Candle Molder Name Role Phone Primitivo Crowder MD Primary Care Provider [phone] Encounter Details Date Type Department Care Team (Latest Contact Info) Description 03/29/2002 Outpatient Historical [address] [phone] Primitivo Crowder MD [address] [place] [address] HYPERTENSION NOS (Primary Dx); HYPERLIPIDEMIA NEC/NOS; PSORIATIC ARTHROPATHY (CMS/HCC); ABNORMAL LIVER FUNCTION STUDY Social History Tobacco Use Types Packs/Day Years Used Date Smoking Tobacco: Never Assessed Sex and Gender Information Value Date Recorded Sex Assigned at Not on file Legal Sex Male 4:47 AM LENDING 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
--- OUTSIDE RECORDS SUMMARY | 2025-05-29 12:04 | XMS_ITS | Encounter Summary ---
Author Organization [facility] Address [address] [place] [address] Care Team Providers Care Geotechnical Department Manager Name Role Phone Primitivo Crowder MD Primary Care Provider [phone] Encounter Details Date Type Department Care Team (Late st Contact Info) Description 10/01/2007 Emergency [facility] Emergency Department [address] 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 Gender Identity Not on file Sexual Orientation Not on file documented as of this encounter Plan of Treatment Not on file documented as of this encounter Procedures Procedure Name Priority Date/Time Associated Diagnosis Comments XR CHEST PA AND LATERAL 2 VW Routine 10/01/2007 10:45 PM CEMENT DESPATCH OPERATOR INFLUENZA VIRUS A AND B, ANTIGEN DETECTION Stat 10/01/2007 9:38 PM CEMENT DESPATCH OPERATOR documented in this encounter Results * XR CHEST PA AND LATERAL (10/01/2007 10:45 PM CEMENT DESPATCH OPERATOR) Anatomical Region Laterality Modality Chest Other 10/01/2007 10:4 5 PM CEMENT DESPATCH OPERATOR Narrative 10/01/2007 10:45 PM CEMENT DESPATCH OPERATOR Exam: Chest - PA and Lateral [...] A AND B ANTIGEN (10/01/2007 9:38 PM CEMENT DESPATCH OPERATOR) INFLUENZA A AG Negative Negative [facility] INFLUENZA B AG Negative Negative [facility] 10/01/2007 9:38 PM CEMENT DESPATCH OPERATOR 10/01/2007 9:47 PM CEMENT DESPATCH OPERATOR Allen Gaspar DO MICROBIOLOGY - GENERAL ORD ERABLES Final Result [facility] [address] [place] [address] documented in this encounter Visit Diagnoses Not on filedocumented in this encounter Care Teams Geotechnical Department Manager Relationship Specialty Start Date End Date Primitivo Crowder MD [address] [place] [address] PCP - General Family Practice 05/20/14 documented as of this encounter
--- OUTSIDE RECORDS SUMMARY | 2025-05-29 12:04 | XMS_ITS | Encounter Summary ---
Author Organization [facility] Address [address] [place] [address] Care Team Providers Care Machine Sweeper Brush Maker Name Role Phone Primitivo Crowder MD Primary Care Provider [phone] Encounter Details Date Type Department Care Team (Latest Contact Info) Description 12/23/2000 Outpatient Historical [address] [phone] Primitivo Crowder MD [address] [place] [phone] Other and unspecified hyperlipidemia (Primary Dx); Unspecified essential hypertension Social History Tobacco Use Types Packs/Day Years Used Date Smoking Tobacco: Never Assessed Sex and Gender Information Value Date Recorded Sex Assigned at Not on file Legal Sex Male 4:47 AM SAFETY AND SECURITY OFFICER Gender Identity Not on file Sexual Orientation Not on file documented as of this encounter Plan of Treatment Not on file documented as of this encounter Visit Diagnoses Diagnosis Other and unspecified hyperlipidemia- Primary Unspecified essential hypertension documented in this encounter Care Teams Machine Sweeper Brush Maker Relationship Specialty Start Date End Date Primitivo Crowder MD [address] [phone] PCP - General Family Practice 05/20/14 documented as of this encounter
--- OUTSIDE RECORDS SUMMARY | 2025-05-29 12:04 | XMS_ITS | Encounter Summary ---
Author Organization [facility] Address [address] [place] [address] Care Team Providers Care Railway Switch Operator Name Role Phone Primitivo Crowder MD Primary Care Provider [phone] Encounter Details Date Type Department Care Team (Latest Contact Info) Description 06/18/2002 Outpatient Historical [facility] [address] [phone] Primitivo Crowder MD [address] [place] [phone] HYPERLIPIDEMIA NEC/NOS (Primary Dx) Social History Tobacco Use Types Packs/Day Years Used Date Smoking Tobacco: Never Assessed Sex and Gender Information Value Date Recorded Sex Assigned at Not on file Legal Sex Male 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
--- OUTSIDE RECORDS SUMMARY | 2025-05-29 12:04 | XMS_ITS | Encounter Summary ---
Author Organization [facility] Address [address] [place] [address] Care Team Providers Care Oil Recovery Operator Name Role Phone Primitivo Crowder MD Primary Care Provider [phone] Encounter Details Date Type Department Care Team (Latest Contact Info) Description 08/08/2000 Outpatient Historical [facility] [address] [phone] Primitivo Crowder MD [address] [place] [phone] Abdominal pain, unspecified site (Primary Dx); Unspecified essential hypertension Social History Tobacco Use Types Packs/Day Years Used Date Smoking Tobacco: Never Assessed Sex and Gender Information Value Date Recorded Sex Assigned at Not on file 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
--- OUTSIDE RECORDS SUMMARY | 2025-05-29 12:04 | XMS_ITS | Encounter Summary ---
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
--- OUTSIDE RECORDS SUMMARY | 2025-05-29 12:04 | XMS_ITS | Encounter Summary ---
Author Organization [facility] Address [address] [place] [address] Care Team Providers Care Clinical Account Executive Name Role Phone Primitivo Crowder MD Primary Care Provider [phone] Encounter Details Date Type Department Care Team (Latest Contact Info) Description 07/08/2001 Outpatient Historical [facility] [address] [place] [phone] Mg Young MD [address] [place] [address] CELLULITIS NOS (Primary Dx); ENLARGEMENT LYMPH NODES; PSORIATIC ARTHROPATHY (CMS/HCC) Social History Tobacco Use Types Packs/Day Years Used Date Smoking Tobacco: Never Assessed Sex and Gender Information Value Date Recorded Sex Assigned at Not on file 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
--- OUTSIDE RECORDS SUMMARY | 2025-05-29 12:04 | XMS_ITS | Encounter Summary ---
Author Organization [facility] Address [address] [place] [address] Care Team Providers Care Molded Rubber Goods Cutter Name Role Phone Primitivo Crowder MD Primary Care Provider [phone] Encounter Details Date Type Department Care Team (Late st Contact Info) Description 11/27/2007 Outpatient Historical [facility] [address] [place] [phone] Pietro Crystal MD NO ADDRESS ON FILE Social History Tobacco Use Types Packs/Day Years Used Date Smoking Tobacco: Never Assessed Sex and Gender Information Value Date Recorded Sex Assigned at Not on file Legal 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
--- OUTSIDE RECORDS SUMMARY | 2025-05-29 12:04 | XMS_ITS | Encounter Summary ---
Author Organization [facility] Address [address] [place] [address] Care Team Providers Care Special Agent Fbi Name Role Phone Primitivo Crowder MD Primary Care Provider [phone] Encounter Details Date Type Department Care Team (Latest Contact Info) Description 11/28/2000 Outpatient Historical [facility] Medicine [place] [address] [phone] Erica Garber MD [address] [place] [phone] Urinary frequency (Primary Dx) Social History Tobacco Use Types Packs/Day Years Used Date Smoking Tobacco: Never Assessed Sex and Gender Information Value Date Recorded Sex Assigned at Not on file Legal Sex Male 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
--- OUTSIDE RECORDS SUMMARY | 2025-05-29 12:04 | XMS_ITS | Encounter Summary ---
Author Organization [facility] Address [address] [place] [address] Care Team Providers Care Cherry Dipper Name Role Phone Primitivo Crowder MD Primary Care Provider [phone] Encounter Details Date Type Department Care Team (Latest Contact Info) Description 06/18/2002 Outpatient Historical [facility] [address] [phone] Primitivo Crowder MD [address] [place] [phone] HYPERLIPIDEMIA NEC/NOS (Primary Dx) Social History Tobacco Use Types Packs/Day Years Used Date Smoking Tobacco: Never Assessed Sex and Gender Information Value Date Recorded Sex Assigned at Not on file Legal Sex Male 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
--- OUTSIDE RECORDS SUMMARY | 2025-05-29 12:04 | XMS_ITS | Encounter Summary ---
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
--- OUTSIDE RECORDS SUMMARY | 2025-05-29 12:04 | XMS_ITS | Encounter Summary ---
Author Organization [facility] Address [address] [place] [address] Care Team Providers Care Senior Boiler Operator Name Role Phone Primitivo Crowder MD Primary Care Provider [phone] Encounter Details Date Type Department Care Team (Latest Contact Info) Description 06/21/2002 Outpatient Historical [facility] [address] [phone] Primitivo Crowder MD [address] [place] [address] ANAL FISSURE (Primary Dx); ABDOMINAL PAIN LUQ; Pure hypercholesterolem; HYPERTENSION NOS Social History Tobacco Use Types Packs/Day Years Used Date Smoking Tobacco: Never Assessed Sex and Gender Information Value Date Recorded Sex Assigned at Not on file Legal Sex Male 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
--- OUTSIDE RECORDS SUMMARY | 2025-05-29 12:04 | XMS_ITS | Encounter Summary ---
Author Organization [facility] Address [address] [place] [address] Care Team Providers Care Interior Systems Carpenter Name Role Phone Primitivo Crowder MD Primary Care Provider [phone] Encounter Details Date Type Department Care Team (Latest Contact Info) Description 03/30/2001 Outpatient Historical [facility] [address] [phone] Primitivo Crowder MD [address] [place] [phone] Chest pain, unspecified (Primary Dx); Other and unspecified hyperlipidemia; Unspecified essential hypertension Social History Tobacco Use Types Packs/Day Years Used Date Smoking Tobacco: Never Assessed Sex and Gender Information Value Date Recorded Sex Assigned at Not on file Legal Sex Male 4:47 AM COLD ROLLER Gender Identity Not on file Sexual Orientation Not on file documented as of this encounter Plan of Treatment Not on file documented as of this encounter Visit Diagnoses Diagnosis Chest pain, unspecified- Primary Other and unspecified hyperlipidemia Unspecified essential hypertension documented in this encounter Care Teams Interior Systems Carpenter Relationship Specialty Start Date End Date Primitivo Crowder MD [address] [phone] PCP - General Family Practice 05/20/14 documented as of this encounter
--- OUTSIDE RECORDS SUMMARY | 2025-05-29 12:04 | XMS_ITS | Encounter Summary ---
Author Organization [facility] Address [address] [place] [address] Care Team Providers Care Transportation Economics Teacher Name Role Phone Primitivo Crowder MD Primary Care Provider [phone] Encounter Details Date Type Department Care Team (Latest Contact Info) Description 02/16/2001 Outpatient Historical [facility] [address] [phone] Primitivo Crowder MD [address] [place] [address] Acute upper respiratory infections of unspecified site (Primary Dx); Unspecified asthma(493.90) Social History Tobacco Use Types Packs/Day Years Used Date Smoking Tobacco: Never Assessed Sex and Gender Information Value Date Recorded Sex Assigned at Not on file Legal Sex Male 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
--- OUTSIDE RECORDS SUMMARY | 2025-05-29 12:04 | XMS_ITS ---
Author Organization [facility] Address [address] [facility] [place] [address] Care Team Providers Care Logistics Analytics Manager Name Role Phone Unavailable Primary Care Provider Unavailabl e Active Problems Problem Noted Date Diagnosed Date Psoriatic arthritis 05/09/2025 Failure to thrive in adult 05/09/2025 Intractable back pain 05/09/2025 History of CVA (cerebrovascular accident) 2024 Generalized muscle weakness 05/05/2025 Ex-smoker 03/23/2025 Post-surgical hypothyroidism 03/23/2025 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 03/23/2025 Right great toe amputee 03/23/2025 Type 2 diabetes mellitus with hyperglycemia 03/05 Cervical myelopathy (CMS/HCC ) s/p C5-C6 anterior decompression and fusion complicated by post-op hematoma s/p evacuation 03/23/2025 Other cervical disc degeneration at C5-C6 level 03/13/2025 Cervical disc disease with myelopathy 03/13/2025 Neck pain 03/12/2025 Unable to care for self 03/12/2025 Parkinson's disease 03/11/2025 History of papillary thyroid cancer s/p thyroide ctomy 11/15/2024 Diabetes mellitus 11/06/2021 Diabetic ulcer of toe of lef t foot associated with type 2 diabetes mellitus 11/06/2021 Psoriasis 05/20/2014 Gastritis 05/20/2014 ASHD (arteriosclerotic heart disease) 05/20/2014 S/P CABG (coronary artery bypass graft) 05/20/20 14 Nausea 05/20/2014 Anxiety 04/29/2014 Elevated bilirubin 04/28/2014 Tobacco use 04/28/2014 History of alcohol abuse 04/28/2014 Chest pain 10/08/2011 Hyperglycemia 08/29/2008 Hx of non-ST elevation myocardial infarction (NS JOCELINE) Current Treatment and Therapy Plans No current plan information found. Past Treatment and Therapy Plans No past plan information found. Lifetime Dose Tracking * Chemical Lifetime Dose Automatic Entry Manual Entr y Effective Dose 2.4 mSv 2.4 mSv 0 mSv Total DLP 1,140.2 DLP 1,140.2 DLP 0 DLP CTDIvol Max 78.9 mGy 78.9 mGy 0 mGy CTDIvol Min 68 mGy 68 mGy 0 mGy Resolved Problems Problem Noted Date Diagnosed Date Resolved Date Non compliance w medication regimen 05/09/2025 05/13/2025 Elevated TSH 05/09/2025 05/13/2025 Other specified hypothyroidism 05/02/2025 05/06/2025 Acute respiratory failure 03/16/2025 Unable to ambulate 03/13/2025 Acute on chronic low back pain 03/11/2025 05/06/2025 Chest pain 05/20/2014 06/16/2014 Abdominal pain 05/20/2014 05/06/2025 CAD (coronary artery disease) 05/20/2014 05/06/2025 Abdominal pain 04/29/2014 04/29/2014 Chest pain 04/28/2014 04/29/2014 Hyperlipidemia 06/27/2008 05/06/2025 Hypertension 06/27/2008 05/06/2025
--- OUTSIDE RECORDS SUMMARY | 2025-05-29 12:04 | XMS_ITS | Encounter Summary ---
Author Organization [facility] Address [address] [place] [address] Care Team Providers Care Director Search Name Role Phone Primitivo Crowder MD Primary Care Provider [phone] Encounter Details Date Type Department Care Team (Latest Contact Info) Description 04/20/2001 Outpatient Historical [facility] [address] [phone] Primitivo Crowder MD [address] [place] [phone] Acute bronchitis (Primary Dx); Abdominal pain, unspecified site; Other and unspecified hyperlipidemia Social History Tobacco Use Types Packs/Day Years Used Date Smoking Tobacco: Never Assessed Sex and Gender Information Value Date Recorded Sex Assigned at Not on file Legal Sex Male 4:47 AM RADIOLOGY 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
--- OUTSIDE RECORDS SUMMARY | 2025-05-29 12:04 | XMS_ITS | Encounter Summary ---
Author Organization [facility] Address [address] 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
--- OUTSIDE RECORDS SUMMARY | 2025-05-29 12:04 | XMS_ITS | Encounter Summary ---
Author Organization [facility] Address [address] [place] [address] Care Team Providers Care Landfill Grader Name Role Phone Primitivo Crowder MD Primary Care Provider [phone] Encounter Details Date Type Department Care Team (Latest Contact Info) Description 09/10/2000 Outpatient Historical [address] [phone] Primitivo Crowder MD [address] [place] [address] Irritable bowel syndrome (Primary Dx); Unspecified essential hypertension; Other malaise and fatigue; Dizziness and giddiness Social History Tobacco Use Types Packs/Day Years Used Date Smoking Tobacco: Never Assessed Sex and Gender Information Value Date Recorded Sex Assigned at Not on file Legal Sex Male 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
--- OUTSIDE RECORDS SUMMARY | 2025-05-29 12:04 | XMS_ITS | Encounter Summary ---
Author Organization [facility] Address [address] [facility] Attn: [place] [address] Care Team Providers Care Testing Shaking Shipping Name Role Phone Primitivo Crowder MD Primary Care Provider [phone] Encounter Details Date Type Department Care Team (Late st Contact Info) Description 06/17/2001 Outpatient Historical Primitivo Crowder MD [address] [place] [address] Social History Tobacco Use Types Packs/Day Years Used Date Smoking Tobacco: Never Assessed Sex and Gender Information Value Date Recorded Sex Assigned at Not on file Legal Sex Male 4:47 AM PURCHASING OFFICER Gender Identity Not on file Sexual Orientation Not on file documented as of this encounter Plan of Treatment Not on file documented as of this encounter Visit Diagnoses Not on filedocumented in this encounter Care Teams Testing Shaking Shipping Relationship Specialty Start Date End Date Primitivo Crowder MD [address] [place] [address] PCP - General Family Practice 05/20/14 documented as of this encounter
--- OUTSIDE RECORDS SUMMARY | 2025-05-29 12:04 | XMS_ITS | Encounter Summary ---
Author Organization [facility] Address [address] [place] [address] Care Team Providers Care Contract Clerk Name Role Phone Primitivo Crowder MD Primary Care Provider [phone] Encounter Details Date Type Department Care Team (Latest Contact Info) Description 07/08/2002 Outpatient Historical [facility] [address] [phone] Primitivo Crowder MD [address] [place] [address] HYPERLIPIDEMIA NEC/NOS (Primary Dx); HYPERTENSION NOS; ACUTE ALCOHOLIC HEPATITIS (CMS/HCC) Social History Tobacco Use Types Packs/Day Years Used Date Smoking Tobacco: Never Assessed Sex and Gender Information Value Date Recorded Sex Assigned at Not on file Legal Sex Male 4:47 AM SHERIFF'S SERGEANT Gender Identity Not on file Sexual Orientation Not on file documented as of this encounter Plan of Treatment Not on file documented as of this encounter Visit Diagnoses Diagnosis Other and unspecified hyperlipidemia- Primary Unspecified essential hypertension Acute alcoholic hepatitis (CMS/HCC) Acute alcoholic hepatitis documented in this encounter Care Teams Contract Clerk Relationship Specialty Start Date End Date Primitivo Crowder MD [address] [place] [phone] PCP - General Family Practice 05/20/14 documented as of this encounter
--- OUTSIDE RECORDS SUMMARY | 2025-05-29 12:04 | XMS_ITS | Encounter Summary ---
Author Organization [facility] Address [address] [place] [address] Care Team Providers Care Road Mechanic Name Role Phone Primitivo Crowder MD Primary Care Provider [phone] Encounter Details Date Type Department Care Team (Late st Contact Info) Description 01/12/2008 Emergency [facility] Emergency Department [address] 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 Gender Identity Not on file Sexual [...] BASIC METABOLIC PANEL (01/12/2008 2:20 PM CDT) [facility] CALCIUM 9.7 8.4 - 10.5 mg/dL [facility] GLUCOSE 94 70 - 110 mg/dL [facility] CHLORIDE 104 95 - 110 mEq/L [facility] ANION GAP 10 9 - 20 mEq/L [facility] SODIUM 138 136 - 145 mEq/L [facility] BUN 12 9 - 20 mg/dL [facility] CO2 29 22 - 32 mmol/l [facility] POTASSIUM 4.5 3.5 - 5.0 mEq/L [facility] OSMOLALITY, CALCULATED 285 275 - 295 mOsm/Kg [facility] CREATININE 1.0 0.7 - 1.5 mg/dL [facility] Blood specimen (specimen) 01/12/2008 2:20 PM CDT 01/12/2008 2:22 PM CDT Joe Colvin MD CHEMISTRY ORDERABLES Final Result [facility] CLIA# [id number] [address] [place] [address] * (ABNORMAL) CBC WITH DIFFERENTIAL (01/12/2008 2:20 PM CDT) Pathologist [facility] MCV 81.7(L) 84.0 - 103.0 Fl [facility] BASOPHILS 0.1 0.0 - 1.0 % [facility] MPV 10.6 8.9 - 12.8 Fl [facility] HEMOGLOBIN 15.1 14.0 - 18.0 g/dL [facility] EOSINOPHIL ABSOLUTE 0.3 0.0 - 0.7 K/ul [facility] MONOCYTES 8.0 2.0 - 10.0 % [facility] RDW 13.4 11.0 - 14.5 % [facility] WBC 7.8 4.5 - 11.0 K/ul [facility] NEUTROPHILS 58.6 42.2 - 75.2 % [facility] MCH 26.8(L) 27.0 - 34.0 pg [facility] NEUTROPHIL ABSOLUTE 4.5 2.0 - 8.0 K/ul [facility] BASOPHILS ABSOLUTE 0.0 0.0 - 0.2 K/ul [facility] HEMATOCRIT 46.1 41.0 - 53.0 % [facility] PLATELETS 296 140 - 440 K/ul [facility] EOSINOPHILS 3.9 0.0 - 7.0 % [facility] MONOCYTE ABSOLUTE 0.6 0.1 - 0.6 K/ul [facility] RBC 5.64 4.60 - 6.20 Mil/ul [facility] MCHC 32.8 30.0 - 35.0 g/dL [facility] LYMPHOCYTE ABSOLUTE 2.3 1.2 - 4.0 K/ul [facility] LYMPHOCYTES 29.4 24.0 - 44.0 % [facility] Blood specimen (specimen) 01/12/2008 2:20 PM CDT 01/12/2008 2:22 PM CDT us Joe Colvin MD HEMATOLOGY ORDERABLES Maci pagan Result Performing Organization Address City/State/[facility] Co de Phone Number [facility] CLIA# [id number] [address] [place] [address] * PTT (01/12/2008 2:20 PM CDT) PTT 29.3 22.5 - 36.5 Secs [facility] Comment: Therapeutic Range: Hi-level [...] ORDERABLES Maci l Result Performing Organization Address [facility] Co de Phone Number [facility] CLIA# [id number] [address] [place] [address] * PROTIME-INR (01/12/2008 2:20 PM CDT) PROTIME 14.2 12.8 - 15.8 Secs [facility] Comment:As of 2007 not e change in normal range. INR 1.0 [facility] Comment: Expected Values for [...] Anticoagulation available from the pharmacy Hitesh Ye. [phone] Blood specimen (specimen) 01/12/2008 2:20 PM CDT 01/12/2008 2:22 PM CDT us Joe Colvin MD HEMATOLOGY ORDERABLES Maci l Result Performing Organization Address City/[facility] Co de Phone Number [facility] CLIA# [id number] [address] [place] [address] * CARDIAC ENZYMES (01/12/2008 2:20 PM CDT) TROPONIN I <0.1 0.0 - 1.3 ng/mL [facility] CKMB 0.6 0.0 - 5.0 ng/mL [facility] Blood specimen (specimen) 01/12/2008 2:20 PM CDT 01/12/2008 2:22 PM CDT us Joe Colvin MD CHEMISTRY ORDERABLES Final Result [facility] CLIA# [id number] [address] [place] [address] * XR CHEST PA OR AP (01/12/2008 [...] on filedocumented in this encounter Care Teams Road Mechanic Relationship Specialty Start Date End Date Primitivo Crowder MD [address] [place] [address] PCP - General Family Practice 05/20/14 documented as of this encounter
--- OUTSIDE RECORDS SUMMARY | 2025-05-29 12:04 | XMS_ITS | Encounter Summary ---
Author Organization [facility] Address [address] [place] [address] Care Team Providers Care Construction Project Coordinator Name Role Phone Primitivo Crowder MD Primary Care Provider [phone] Encounter Details Date Type Department Care Team (Latest Contact Info) Description 08/13/2004 Outpatient Historical [facility] [address] [phone] Primitivo Crowder MD [address] [place] [phone] HYPERTENSION NOS (Primary Dx) Social History Tobacco Use Types Packs/Day Years Used Date Smoking Tobacco: Never Assessed Sex and Gender Information Value Date Recorded Sex Assigned at Not on file 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
--- OUTSIDE RECORDS SUMMARY | 2025-05-29 12:04 | XMS_ITS | Encounter Summary ---
Author Organization [facility] Address [address] [place] [address] Care Team Providers Care Insurance Loss Assessor Name Role Phone Primitivo Crowder MD Primary Care Provider [phone] Encounter Details Date Type Department Care Team (Latest Contact Info) Description 06/17/2001 Outpatient Historical [facility] [address] [phone] Primitivo Crowder MD [address] [place] [address] HYPERLIPIDEMIA NEC/NOS (Primary Dx); VACCINE FOR INFLUENZA Social History Tobacco Use Types Packs/Day Years Used Date Smoking Tobacco: Never Assessed Sex and Gender Information Value Date Recorded Sex Assigned at Not on file 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
--- OUTSIDE RECORDS SUMMARY | 2025-05-29 12:04 | XMS_ITS | Encounter Summary ---
Author Organization [facility] Address [address] [place] [address] Care Team Providers Care Draft Roller Picker Name Role Phone Primitivo Crowder MD Primary Care Provider [phone] Encounter Details Date Type Department Care Team (Latest Contact Info) Description 06/29/2002 Outpatient Historical [address] [phone] Primitivo Crowder MD [address] [place] [address] ABDOMINAL PAIN UNSPEC SITE (Primary Dx); SPRAIN SHOULDER/ARM NOS; ACUTE ALCOHOLIC HEPATITIS (CMS/HCC) Social History Tobacco Use Types Packs/Day Years Used Date Smoking Tobacco: Never Assessed Sex and Gender Information Value Date Recorded Sex Assigned at Not on file 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
--- OUTSIDE RECORDS SUMMARY | 2025-05-29 12:04 | XMS_ITS | Encounter Summary ---
Author Organization [facility] Address [address] [place] [address] Care Team Providers Care Screener Perfumer Name Role Phone Primitivo Crowder MD Primary Care Provider [phone] Encounter Details Date Type Department Care Team (Latest Contact Info) Description 08/24/2004 Outpatient Historical [facility] [address] [place] [phone] Primitivo Crowder MD [address] [place] [phone] MYALGIA AND MYOSITIS NOS (Primary Dx); HYPERTENSION NOS; LIVER DISORDERS NEC Social History Tobacco Use Types Packs/Day Years Used Date Smoking Tobacco: Never Assessed Sex and Gender Information Value Date Recorded Sex Assigned at Not on file 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
--- OUTSIDE RECORDS SUMMARY | 2025-05-29 12:04 | XMS_ITS | Encounter Summary ---
Author Organization [facility] Address [address] [place] [address] Care Team Providers Care Radio Time Buyer Name Role Phone Primitivo Crowder MD Primary Care Provider [phone] Encounter Details Date Type Department Care Team (Latest Contact Info) Description 06/23/2002 Outpatient Historical [facility] [address] [phone] Primitivo Crowder MD [address] [place] [phone] ABDOMINAL PAIN UNSPEC SITE (Primary Dx) Social History Tobacco Use Types Packs/Day Years Used Date Smoking Tobacco: Never Assessed Sex and Gender Information Value Date Recorded Sex Assigned at Not on file 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
--- OUTSIDE RECORDS SUMMARY | 2025-05-29 12:04 | XMS_ITS | Encounter Summary ---
Author Organization [facility] Address [address] [place] [address] Care Team Providers Care Collision Repair Technician Name Role Phone Primitivo Crowder MD Primary Care Provider [phone] Encounter Details Date Type Department Care Team (Latest Contact Info) Description 06/15/2008 Outpatient Historical [facility] [address] 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
--- OUTSIDE RECORDS SUMMARY | 2025-05-29 12:04 | XMS_ITS | Encounter Summary ---
Author Organization [facility] Address [address] [place] [address] Care Team Providers Care Call Center Assistant Name Role Phone Primitivo Crowder MD Primary Care Provider [phone] Encounter Details Date Type Department Care Team (Latest Contact Info) Description 04/13/2001 Outpatient Historical [facility] [address] [phone] Primitivo Crowder MD [address] [place] [phone] Unspecified essential hypertension (Primary Dx); Chest pain, unspecified; Other and unspecified hyperlipidemia Social History Tobacco Use Types Packs/Day Years Used Date Smoking Tobacco: Never Assessed Sex and Gender Information Value Date Recorded Sex Assigned at Not on file 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
--- OUTSIDE RECORDS SUMMARY | 2025-05-29 12:04 | XMS_ITS | Encounter Summary ---
Author Organization [facility] Address [address] [place] [address] Care Team Providers Care Box Toe Stitcher Name Role Phone Primitivo Crowder MD Primary Care Provider [phone] Encounter Details Date Type Department Care Team (Latest Contact Info) Description 01/04/2000 Outpatient Historical [address] [phone] Primitivo Crowder MD [address] [place] [phone] Unspecified essential hypertension (Primary Dx); Pure hyperglyceridemia Social History Tobacco Use Types Packs/Day Years Used Date Smoking Tobacco: Never Assessed Sex and Gender Information Value Date Recorded Sex Assigned at Not on file 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
--- OUTSIDE RECORDS SUMMARY | 2025-05-29 12:04 | XMS_ITS | Encounter Summary ---
Author Organization [facility] Address [address] [facility] [place] [address] Care Team Providers Care Agricultural Engineering Technicians Name Role Phone Primitivo Corwder MD Primary Care Provider Reason for Referral * Outpatient Services (Routine) - Closed Specialty Diagnoses / Procedures Referred By Jeffery santos Referred To Contact Diagnoses Thoracic spondylosis without myelopathy Procedures MRI THORACIC WO CONTRAST Diann Jasso MD [address] [place] [address] Phone: tel: fax: [facility] Pre-Registration [place] CALL TO MAKE APPOINTMENT ONLY [address] [place] [address] Phone: tel: fax: Referral ID Status Reason Start Date Expiration Date V isits Requested Visits Authorized [id number] Closed F [facility] TO SCHEDULE (SGF) 09/16/2014 10/17/2015 1 1 HEN BATH DESIGNER Encounter Details Date Type Department Care Team (Latest Contact Info) Description 09/16/2014 Ancillary Orders [facility] Pre-Registration [place] CALL TO MAKE APPOINTMENT ONLY [address] [place] [address] Diann Jasso MD [address] [place] [address] Thoracic spondylosis without myelopathy (Primary [...] on file 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 KARMA/raciel - uploaded from [employer], [employer] - Narrative Procedure Note Jaime Leary MD [...] myelopathy documented in this encounter Care Teams Agricultural Engineering Technicians Relationship Specialty Start Date End Date Primitivo Crowder MD [address] [place] [phone] PCP - General Family Practice 05/20/14 documented as of this encounter
--- OUTSIDE RECORDS SUMMARY | 2025-05-29 12:04 | XMS_ITS | Encounter Summary ---
Author Organization [facility] Address [address] [place] [address] Care Team Providers Care Entry Level Project Engineer Name Role Phone Primitivo Crowder MD Primary Care Provider [phone] Encounter Details Date Type Department Care Team (Latest Contact Info) Description 09/14/2002 Outpatient Historical [address] [phone] Primitivo Crowder MD [address] [place] [phone] ACUTE FRONTAL SINUSITIS (Primary Dx); SPASM OF MUSCLE Social History Tobacco Use Types Packs/Day Years Used Date Smoking Tobacco: Never Assessed Sex and Gender Information Value Date Recorded Sex Assigned at Not on file 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
--- OUTSIDE RECORDS SUMMARY | 2025-05-29 12:04 | XMS_ITS | Clinical Summary ---
Author Organization [facility] Address [address] [facility] [place] [address] Care Team Providers Care [facility] Attendant Name Role Phone Unavailable Primary Care Provider Unavailabl e Allergies No known active allergies Medications aspirin (EDIL CHEWABLE) 81 mg Tablet, Chewable Take 81 mg by mouth. Active Blood-Glucose Meter KitIndications:T ype 2 diabetes mellitus with other specified complication, without long-term current use of insulin For twice daily blood sugar monitoring, fasting and after 1 meal . DX E11.69 , A1c 13.3 1 Each 022 Active blood sugar diagnostic (Blood Glucose Test) StripIndications :Type 2 diabetes mellitus with other specified complication, without long-term current use of insulin For twice daily blood sugar monitoring, fasting and after 1 meal . DX E11.69 , A1c 13.3 200 Strip 3 022 Active lancetsIndicatio ns:Type 2 diabetes mellitus with other specified complication, without long-term current use of insulin Inject 1 Each by subcutaneous injection 2 times daily. 200 Each 3 022 Active glipiZIDE (GLUCOTROL) 10 mg tablet Take 10 mg by mouth daily with breakfast. 025 Active rosuvastatin (CRESTOR) 20 mg tablet Take 20 mg by mouth daily at bedtime. 025 Active cholecalciferol (VITAMIN D3) 10 mcg/mL (400 unit/mL) Drops Take 2,000 Units by mouth daily. Active calcium CITRATE 200 mg (950 mg) Tablet Take 1,900 mg by mouth every 6 hours. 025 Active MAGNESIUM OXIDE ORAL Take by mouth. Activ e ascorbic acid (VITAMIN C) 250 mg Tablet, Chewable Take 250 mg by mouth daily. Active Lidocaine 4 % Adhesive Patch, Medicated Apply to Neck and lower back. Apply only once for up to 12 hours within a 24 hour period. Patches may be cut into smaller sizes with scissors prior to the removal of the release liner. Clothing may be worn over the area of application. For more information use the [email or web address] ADMINISTRATION link. Active ibuprofen (MOTRIN) 200 mg tablet Take 200 mg by mouth every 6 hours as needed for Pain, Mild. Active insulin lispro (HumaLOG,ADMELOG ) 100 unit/mL pen syringe Inject 0-12 Units by subcutaneous injection 3 times daily with meals. 15 mL Active carbidopa-levodo pa (SINEMET) 25-100 mg tablet Take 1 Tablet by mouth 3 times daily. 90 Tablet Active folic acid (FOLVITE) 1 mg tablet Take 1 Tablet (1 mg) by mouth daily. 30 Tablet Active methotrexate (RHEUMATREX) 2.5 mg Tablet Take 4 Tablets (10 mg) by mouth every 7 days. 16 Tablet Active polyethylene glycol (MIRALAX) 17 gram Powder in Packet Take 1 Packet (17 Grams) by mouth 2 times daily as needed for Constipation. 30 Packet 2024 Active metoprolol succinate (TOPROL XL) 25 mg Extended Release 24 hour tablet Take 1 Tablet (25 mg) by mouth daily. 30 Tablet Active levothyroxine 200 mcg tablet Take 1 Tablet (200 mcg) by mouth daily in the morning. 30 Tablet Active insulin glargine (Lantus Solostar U-100 Insulin) 100 unit/mL pen syringe Inject 17 Units by subcutaneous injection daily with breakfast. Active metoclopramide HCl (REGLAN) 5 mg tablet Take 1 Tablet (5 mg) by mouth 3 times daily before meals. Use together with low dose benadryl 12.5mg Active ondansetron (ZOFRAN) 4 mg/2 mL Solution Inject 2 mL (4 mg) by intravenous injection every 8 hours as needed for Nausea/Emesis. Active naloxone (NARCAN) 0.4 mg/mL Solution Inject 0.25-1 mL (0.1-0.4 mg) by intravenous injection every 5 minutes as needed for Other (See Comment) (over dose). Active docusate sodium (COLACE) 100 mg capsule Take 1 Capsule (100 mg) by mouth 2 times daily. Active diphenhydrAMINE (BENADRYL) 12.5 mg/5 mL solution Take 5 mL (12.5 mg) by mouth 3 times daily before meals. Use together with reglan Active polyethylene glycol (MIRALAX) 17 gram Powder in Packet Take 1 Packet (17 Grams) by mouth 2 times daily as needed for Constipation. Active metoprolol succinate (Toprol XL) 50 mg Extended Release 24 hour tabletIndication s:Hypertension, unspecified type,Intention tremor Take 1 Tablet (50 mg) by mouth daily. For tremors 30 Tablet 2 022 2024 Discontinued glimepiride (AMARYL) 4 mg tabletIndication s:Type 2 diabetes mellitus with other specified complication, without long-term current use of insulin Take 1 Tablet (4 mg) by mouth daily with breakfast. DIABETES 90 Tablet 022 2024 Discontinued bismuth subsalicylate (PEPTO-BISMOL) 262 mg/15 mL suspension Take 30 mL by mouth every 6 hours as needed for Indigestion. 015 2024 Discontinued SITagliptin (Januvia) 100 mg Tablet Take 1 Tablet (100 mg) by mouth daily with breakfast. For diabetes. 90 Tablet 1 022 2024 Discontinued traMADoL (ULTRAM) 50 mg tabletIndication s:Diabetic ulcer of toe of left foot associated with type 2 diabetes mellitus, unspecified ulcer stage,Diabetic ulcer of right great toe Take 1-2 Tablets (50-100 mg) by mouth every 6 hours as needed for Pain. 30 Tablet 023 2024 Discontinued metFORMIN (GLUCOPHAGE XR) 500 mg Extended Release 24 hour tabletIndication s:Type 2 diabetes mellitus with other specified complication, without long-term current use of insulin Take 1 Tablet (500 mg) by mouth 2 times daily with meals. For diabetes 200 Tablet 3 023 2024 Discontinued oxyCODONE (OXAYDO) 5 mg tablet, oral only tablet Take 5 mg by mouth every 4 hours as needed for Pain. 2024 Discontinued lisinopriL (PRINIVIL) 10 mg tablet Take 10 mg by mouth daily. 2024 Discontinued levothyroxine 200 mcg tablet Take 200 mcg by mouth daily in the morning. 2024 Discontinued insulin glargine-yfgn 100 unit/mL pen syringe Inject 30 Units by subcutaneous injection 2 times daily. 2024 Discontinued insulin lispro (HumaLOG,ADMELOG ) 100 unit/mL pen syringe Inject 0-18 Units by subcutaneous injection 3 times daily with meals. 2024 Discontinued insulin lispro (HumaLOG,ADMELOG ) 100 unit/mL pen syringe Inject 3 Units by subcutaneous injection 3 times daily with meals. 2024 Discontinued naloxone (NARCAN) 4 mg/spray [place], Non-Aerosol EMERGENCY USE ONLY: Administer 1 spray (4 mg) in one nostril one time. May repeat in alternating nostrils every 2-3 min until responsive or EMS arrives. 2 Each 3 2024 Discontinued insulin glargine (Lantus Solostar U-100 Insulin) 100 unit/mL pen syringe Inject 15 Units by subcutaneous injection daily with breakfast. 4.5 mL 2024 Discontinued traMADol (ULTRAM) 50 mg tabletIndication s:Other cervical disc degeneration at C5-C6 level Take 1 Tablet (50 mg) by mouth every 6 hours as needed for Pain. 15 Tablet 2024 Discontinued triamcinolone acetonide (KENALOG) 0.1 % Cream Apply to affected area 2 times daily for 7 days. 80 Gram 2024 oxyCODONE (OxyCONTIN) 10 mg Controlled Release 12 hour crush resistant tabletIndication s:Intractable back pain,Cervical myelopathy (CMS/HCC) Take 1 Tablet (10 mg) by mouth every 12 hours for 7 days. Continue this medication for pain control going forward if possible. Max Daily Amount: 20 mg 025 2024 simethicone 125 mg Tablet, Chewable Take 1 Tablet (125 mg) by mouth every 6 hours as needed for Gas. 025 2024 Active Problems Problem Noted Date Diagnosed Date [...] 04/29/2014 Hyperlipidemia 06/27/2008 05/06/2025 Hypertension 06/27/2008 05/06/2025 Encounters Date Type Department Care Team Description 05/16/2025 3:02 PM CDT - 05/16/2025 4:[address] [facility] Emergency Medicine [address] [phone] Stella Goyal MD Discharge Disposition: Left without being seen 05/16/2025 - 05/16/2025 11:59 PM CDT Hospital Encounter [facility] Emergency Medical Services [facility] [address] [address] Ambulance, [facility] Discharge Disposition: Short [facility] 05/10/2025 External Device Data STL ABSTRACTION Provider, Abstract 05/09/2025 6:08 AM CDT - 05/13/2025 11:35 AM CDT Hospital Encounter [facility] [address] [facility] [address] [place] [address] Allen Aquino MD Day, Shamuel M, MD Intractable back pain Discharge Disposition: Discharged/transfer red to a [facility] facility (SNF) with Medicare certificatio 05/09/2025 Travel 05/03/2025 External Device Data STL ABSTRACTION Provider, Abstract 05/03/2025 External Device Data STL ABSTRACTION Provider, Abstract 05/01/2025 5:42 PM CDT - 05/06/2025 8:00 PM CDT Hospital Encounter [facility] [address] [facility] [address] [place] [address] Stella Goyal MD Sindlinger, Timothy S, MD Generalized muscle weakness Discharge Disposition: Home or Self Care 05/01/2025 Travel 04/12/2025 External Device Data STL ABSTRACTION Provider, Abstract 04/12/2025 External Device Data STL ABSTRACTION Provider, Abstract 03/23/2025 2:45 PM CDT - 03/27/2025 3:30 PM CDT Hospital Encounter [facility] Rehabilitation Services [address] [place] [address] Tramaine Andrade Jr., MD Cervical myelopathy ([facility]) Discharge Disposition: Left Against Medical Advice 03/23/2025 Telephone [facility] [address] [place] [address] Mami Dickson Appointment Notification 03/16/2025 2:03 PM CDT - 03/16/2025 4:55 PM CDT Surgery [facility] Operating Room [address] [place] [phone] Shawn Snowden MD NECK INCISION AND DRAINAGE 03/16/2025 1:37 PM CDT Anesthesia Event [facility] Operating Room [address] [place] [phone] Tramaine Brar MD 03/15/2025 External Device Data STL ABSTRACTION Provider, Abstract 03/15/2025 External Device Data STL ABSTRACTION Provider, Abstract 03/15/2025 External Device Data STL ABSTRACTION Provider, Abstract 03/14/2025 3:10 PM CDT Anesthesia Event [facility] Operating Room [address] [place] [phone] Tramaine Brar MD [place], Roman, FORREST 03/14/2025 2:05 PM CDT - 03/14/2025 5:10 PM CDT Surgery [facility] Operating Room [address] [place] [phone] Roger Eisenberg MD CERVICAL DISCECTOMY FUSION ANTERIOR - 1 LEVEL 03/11/2025 5:35 PM CDT - 03/23/2025 2:30 PM CDT Hospital Encounter [facility] 6[address] Neurology [address] [place] [address] Damien, MD Maykel Noland, MD Dudley Watkins Jagdeep S, MD Nemargommula, Swetha, MD Saeed, Mariam, MD Neupane, Gagan, MD Kaur, MD Isaiah Cervical disc disease with myelopathy Discharge Disposition: Rehab Facility IP 03/11/2025 - 03/11/2025 11:59 PM CDT Hospital Encounter [facility] Emergency Medical Services [address] [phone] Ambulance, [facility] Discharge Disposition: [facility] 03/11/2025 Travel 03/02/2025 - 03/02/2025 11:59 PM CDT Hospital Encounter [facility] Emergency Medical Services [address] [phone] Ambulance, [facility] Discharge Disposition: [facility] from Last 3 Months Family History Medical [...] drink = 0.6 oz pu re alcohol) Food Insecurity Answer Date Recorded Do you find you are eating l ess than you should because you can t pay for food? No 05/16/2025 Transportation Needs Answer Date Record ed Have you gone without health care because you didn t have a way to get there? 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 No 2024 Housing Stability Answer Date Recorded Do you worry you won t have a steady place to sleep or struggle to pay rent or mortgage? No 05/16/2025 Utility Needs Answer Date Recorded Do you have difficulty payin g for utility costs (electric, water or gas bills)? No 05/16/2025 Medication Needs Answer Date Recorded Have you skipped taking medi cation due to cost or worry you can t afford new medications? No 05/16/2025 Feeling Safe Answer Date Recorded Are you in a relationship wi th someone who hurts you emotionally and/or physically? 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 Gender Identity Not on file Sexual Orientation Not on file Last Filed Vital Signs Vital Sign Reading Time Taken Comments Blood Pressure 131/95 05/16/2025 4:30 PM CDT Pulse 78 05/16/2025 4:30 PM CDT Temperature 36.3 C (97.3 F) 05/16/2025 2:27 PM CDT Respiratory Rate 16 05/16/2025 4:30 PM CDT Oxygen Saturation 97% 05/16/2025 4:30 PM CDT Inhaled Oxygen Concentration - - Weight 92.7 kg (204 lb 6.4 oz) 05/16/2025 2:27 P M CDT Height 182.9 cm (6') 05/16/2025 2:27 PM CDT Body Mass Index 27.72 05/16/2025 2:27 PM CDT Plan of Treatment Upcoming Encounters Date Type Department Care Team (Late st Contact Info) Description 08/29/2025 1:15 PM [employer]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 [address] Health Maintenance Due Date Last Done Comments DIABETES ANNUAL RETINAL EXAM 1976 PNEUMOCOCCAL VACCINE 50+ YEA RS (1 of 2 - PCV) 1977 FIT-DNA Q 3 years 01/01/2004 FIT/FOBT Q 1 year 01/01/2004 Flex Sig/CT Colonography Q 5 years 01/01/2004 RSV VACCINE (60+ or ) (1 - Risk 50-74 years 1-dose series) 2008 ZOSTER VACCINE (1 of 2) 2008 DIABETES MICROALBUMIN ANNUAL SCREEN 08/09/2022 08/09/2021 LDL [...] Completed 11/16/2007 Medical Devices Implanted Type Area Wrapper Layer Device Identifier Shelf Expiration Date Model / Serial / Lot Clip Ligating Horizon Med Ti [id number] - Csc - [id number] Implanted:Qty: 1 on 03/16/2025 by Shawn Snowden MD at [facility] Clip N/A: Neck TELEFLEX- WECK CLOSURE SYS [id number] 05/26/2029 [id number] / / [id number] Clip Ligating Horizon Sm [id number] - [id number] Implanted:Qty: 1 on 03/16/2025 by Shawn Snowden MD at [facility] Clip N/A: Neck TELEFLEX INC [id number] 08/26/2029 [id number] / / [id number] Hemostatic Surgiflo 8ml W/ Thrombin 2994 - [id number] Implanted:Qty: 1 on 03/14/2025 by Roger Eisenberg MD at [facility] Hemostatic N/A: Neck J&J- [employer] [id number] 05/03/2026 2994 / / [id number] Hemostatic Surgiflo 8ml W/ Thrombin 2994 - [id number] Implanted:Qty: 1 on 03/16/2025 by Shawn Snowden MD at [facility] Hemostatic N/A: Neck J&J- [employer] [id number] 05/03/2026 2994 / / [id number] Plate Naomi Vision Elite 21.0mm [id number] - [id number] Implanted:Qty: 1 on 03/14/2025 by Roger Eisenberg MD at [facility] Plate N/A: Neck MEDTRONIC- SOFAMOR DANEK [id number] / / Screw Naomi Sd Va 4.0x15mm [id number] - [id number] Implanted:Qty: 1 on 03/14/2025 by Roger Eisenberg MD at [facility] Screw N/A: Neck MEDTRONIC- SOFAMOR DANEK [id number] / / Screw Naomi Sd Va 4.0x15mm [id number] - [id number] Implanted:Qty: 1 on 03/14/2025 by Roger Eisenberg MD at [facility] Screw N/A: Neck MEDTRONIC- SOFAMOR DANEK [id number] / / Screw Naomi Sd Va 4.0x15mm [id number] - [id number] Implanted:Qty: 1 on 03/14/2025 by Roger Eisenberg MD at [facility] Screw N/A: Neck MEDTRONIC- SOFAMOR DANEK [id number] / / Screw Naomi Sd Va 4.0x15mm [id number] - [id number] Implanted:Qty: 1 on 03/14/2025 by Roger Eisenberg MD at [facility] Screw N/A: Neck [employer] SOFAMOR DANEK [id number] / / Cage Endoskeleton Tc Nanoloc 6 Lrdtc Tc 90s15s6qs Med [id number] - [id number] Implanted:Qty: 1 on 03/14/2025 by Roger Eisenberg MD at [facility] Spacer N/A: Neck MEDTRONIC- SOFAMOR DANEK 01/07/2029 [id number] / / [id number] Allograft Putty Influx+ Dbm 1ml Iflx-Fw-01 - [id number] Implanted:Qty: 1 on 03/14/2025 by Roger Eisenberg MD at [facility] Tissue N/A: Neck [employer] 08/11/2027 IFLX-FW-0 1 / [id number] / Procedures Procedure Name Priority Date/Time Associated Diagnosis Comments POC GLUCOSE Routine 05/13/2025 7:01 AM CDT CBC WITH DIFFERENTIAL Routine 05/13/2025 6:10 AM CDT POC GLUCOSE Routine 05/12/2025 9:13 PM CDT POC GLUCOSE Routine 05/12/2025 5:15 PM CDT POC GLUCOSE Routine 05/12/2025 11:40 AM CDT POC GLUCOSE Routine 05/12/2025 7:13 AM CDT COMPREHENSIVE METABOLIC PANEL Routine 05/12/2025 6:36 AM CDT CBC WITH DIFFERENTIAL Routine 05/12/2025 6:36 AM CDT POC GLUCOSE Routine 05/11/2025 9:09 PM CDT POC GLUCOSE Routine 05/11/2025 3:59 PM CDT POC GLUCOSE Routine 05/11/2025 11:42 AM CDT POC GLUCOSE Routine 05/11/2025 7:32 AM CDT COMPREHENSIVE METABOLIC PANEL Routine 05/11/2025 6:20 AM CDT CBC WITH DIFFERENTIAL Routine 05/11/2025 6:20 AM CDT POC GLUCOSE Routine 05/10/2025 10:01 PM CDT POC GLUCOSE Routine 05/10/2025 5:08 PM CDT POC GLUCOSE Routine 05/10/2025 11:42 AM CDT TELEMETRY REPORT 05/10/2025 9:54 AM CDT POC GLUCOSE Routine 05/10/2025 7:29 AM CDT POC GLUCOSE Routine 05/09/2025 9:41 PM CDT POC GLUCOSE Routine 05/09/2025 5:13 PM CDT URINALYSIS MICROSCOPY ONLY Stat 05/09/2025 1:29 PM CDT URINALYSIS W/REFLEX MICROSCOPIC Stat 05/09/2025 1:[address] HEAD WO CONTRAST Stat 05/09/2025 12:26 PM CDT TSH Stat 05/09/2025 8:05 AM CDT TROPONIN 2 HR, 5TH GEN Timed Study 05/09/2025 8:05 AM CDT EKG 12-LEAD Stat 05/09/2025 6:34 AM CDT XR CHEST PA OR AP 1 VW Stat 05/09/2025 6:28 AM CDT D-DIMER Stat 05/09/2025 6:12 AM CDT MAGNESIUM LEVEL Stat 05/09/2025 6:12 AM CDT TROPONIN BASELINE, 5TH GEN Stat 05/09/2025 6:12 AM CDT COMPREHENSIVE METABOLIC PANEL Stat 05/09/2025 6:12 AM CDT CBC WITH DIFFERENTIAL Stat 05/09/2025 6:12 AM CDT POC GLUCOSE Routine 05/06/2025 5:05 PM CDT POC GLUCOSE Routine 05/06/2025 12:12 PM CDT POC GLUCOSE Routine 05/06/2025 7:20 AM CDT DIFFERENTIAL, MANUAL Routine 05/06/2025 6:35 AM CDT CBC WITH DIFFERENTIAL Routine 05/06/2025 6:35 AM CDT COMPREHENSIVE METABOLIC PANEL Routine 05/06/2025 6:35 AM CDT METHOTREXATE LEVEL Routine 05/06/2025 6: 35 AM CDT POC GLUCOSE Routine 05/05/2025 8:26 PM CDT POC GLUCOSE Routine 05/05/2025 5:00 PM CDT POC GLUCOSE Routine 05/05/2025 11:53 AM CDT POC GLUCOSE Routine 05/05/2025 7:29 AM CDT POC GLUCOSE Routine 05/04/2025 9:43 PM CDT POC GLUCOSE Routine 05/04/2025 5:10 PM CDT POC GLUCOSE Routine 05/04/2025 11:36 AM CDT POC GLUCOSE Routine 05/04/2025 7:24 AM CDT POC GLUCOSE Routine 05/03/2025 9:04 PM CDT XR ABDOMEN 1 VW Stat 05/03/2025 6:38 PM CDT POC GLUCOSE Routine 05/03/2025 5:15 PM CDT POC GLUCOSE Routine 05/03/2025 3:09 PM CDT POC GLUCOSE Routine 05/03/2025 11:52 AM CDT POC GLUCOSE Routine 05/03/2025 7:15 AM CDT POC GLUCOSE Routine 05/02/2025 9:29 PM CDT POC GLUCOSE Routine 05/02/2025 5:21 PM CDT POC GLUCOSE Routine 05/02/2025 11:41 AM CDT POC GLUCOSE Routine 05/02/2025 7:26 AM CDT T4 FREE Routine 05/02/2025 6:20 AM CDT BASIC METABOLIC PANEL Routine 05/02/2025 6:20 AM CDT CBC WITH DIFFERENTIAL Routine 05/02/2025 6:20 AM CDT TSH REFLEXIVE Routine 05/02/2025 6:20 AM CDT URINALYSIS MICROSCOPY ONLY Stat 05/01/2025 11:33 PM CDT URINALYSIS W/REFLEX MICROSCOPIC Stat 05/01/2025 11:[address] ABDOMEN PELVIS W CONTRAST Stat 05/01/2025 9:27 PM CDT LIPASE Stat 05/01/2025 8:00 PM CDT COMPREHENSIVE METABOLIC PANEL Stat 05/01/2025 8:00 PM CDT CBC WITH DIFFERENTIAL Stat 05/01/2025 8:00 PM CDT POC GLUCOSE Routine 03/27/2025 11:34 AM CDT [...] 1 VW Stat 03/16/2025 4:01 PM CDT MT I&D DEEP ABSC/HMTMA SOFT TISSUE NECK/THORAX 03/16/2025 2:03 PM CDT MT ANES INSERT ENDOTRACHEAL AIRWAY Routine 03/16/2025 1:46 [...] 1 VW Routine 03/14/2025 5:46 PM CDT MT ANES INSERT ENDOTRACHEAL AIRWAY Routine 03/14/2025 3:26 [...] RATIO, RANDOM UR Routine 08/09/2021 10:51 AM [employer]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 GLUCOSE POC 215(H) 74 - 99 mg/dL 05/13/2025 7:01 AM CDT [facility] SPECIMEN SOURCE, GLUCOSE POC Whole Blood 05/13/2025 7:01 AM CDT [facility] Blood, whole 05/13/2025 7:01 AM CDT 05/13/2025 7:19 AM CDT us Stella Goyal MD POINT OF CARE TESTING Final Res ult [facility] CLIA # [id number] [address] [place] [id number] * (ABNORMAL) CBC WITH DIFFERENTIAL (05/13/2025 6:10 AM CDT) Only the most recent of18 resultswithin the time period is included. WBC 5.9 4.2 - 9.1 K/uL 05/13/2025 6:21 AM [facility] RBC 4.18(L) 4.63 - 6.08 M/uL 05/13/2025 6:21 AM [facility] HEMOGLOBIN 12.3(L) 13.7 - 17.5 g/dL 05/13/2025 6:21 AM [facility] HEMATOCRIT 35.1(L) 40.1 - 51.0 % 05/13/2025 6:21 AM [facility] MCV 84.0 79.0 - 92.2 fL 05/13/2025 6:21 AM [facility] MCH 29.4 25.7 - 32.2 pg 05/13/2025 6:21 AM [facility] MCHC 35.0 32.3 - 36.5 g/dL 05/13/2025 6:21 AM [facility] RDW 12.6 11.0 - 14.5 % 05/13/2025 6:21 AM [facility] RDW-STDEV 37.8 36.9 - 56.9 fL 05/13/2025 6:21 AM [facility] PLATELETS 233 130 - 400 K/uL 05/13/2025 6:21 AM [facility] MPV 10.1 10.0 - 14.8 fL 05/13/2025 6:21 AM [facility] NEUTROPHILS 67 34 - 68 % 05/13/2025 6:21 AM [facility] LYMPHOCYTES 18(L) 22 - 53 % 05/13/2025 6:21 AM [facility] MONOCYTES 6 5 - 12 % 05/13/2025 6:21 AM [facility] EOSINOPHILS 6 1 - 7 % 05/13/2025 6:21 AM [facility] BASOPHILS 0 0 - 1 % 05/13/2025 6:21 AM [facility] IMMATURE GRANULOCYTES 3 % 05/13/2025 6:21 AM [facility] NEUTROPHIL ABSOLUTE 3.98 1.78 - 5.38 K/uL 05/13/2025 6:21 AM [facility] LYMPHOCYTE ABSOLUTE 1.05(L) 1.20 - 3.40 K/uL 05/13/2025 6:21 AM [facility] MONOCYTE ABSOLUTE 0.34 0.30 - 0.82 K/uL 05/13/2025 6:21 AM [facility] EOSINOPHIL ABSOLUTE 0.38 0.04 - 0.54 K/uL 05/13/2025 6:21 AM [facility] BASOPHILS ABSOLUTE 0.02 0.01 - 0.08 K/uL 05/13/2025 6:21 AM [facility] IMMATURE GRANULOCYTES ABSOLUTE 0.15 K/uL 05/13/2025 6:21 AM [facility] Blood Venipuncture / Unknown 05/13/2025 6:10 AM CDT 05/13/2025 6:17 AM CDT us Deandra Teresa LEAD MINER BLASTING HEMATOLOGY ORDERABLES Final [id number] [address] [place] [address] * (ABNORMAL) COMPREHENSIVE METABOLIC PANEL (05/12/2025 6:36 AM CDT) Only the most recent of10 resultswithin the time period is included. SODIUM 133(L) 136 - 145 mmol/L 05/12/2025 6:58 AM [facility] POTASSIUM 4.1 3.5 - 5.1 mmol/L 05/12/2025 6:58 AM [facility] CHLORIDE 95(L) 98 - 107 mmol/L 05/12/2025 6:58 AM [facility] CO2 27 22 - 29 mmol/L 05/12/2025 6:58 AM [facility] CALCIUM 8.8 8.8 - 10.2 mg/dL 05/12/2025 6:58 AM [facility] BUN 19 8 - 23 mg/dL 05/12/2025 6:58 AM [facility] CREATININE 0.91 0.67 - 1.17 mg/dL 05/12/2025 6:58 AM [facility] GLUCOSE 185(H) 74 - 99 mg/dL 05/12/2025 6:58 AM [facility] TOTAL PROTEIN 6.4(L) 6.6 - 8.7 g/dL 05/12/2025 6:58 AM [facility] ALBUMIN 3.7 3.5 - 5.2 g/dL 05/12/2025 6:58 AM [facility] BILIRUBIN TOTAL 1.4(H) 0.0 - 1.2 mg/dL 05/12/2025 6:58 AM [facility] ALKALINE PHOSPHATASE 97 40 - 129 U/L 05/12/2025 6:58 AM [facility] AST 21 0 - 50 U/L 05/12/2025 6:58 AM [facility] ALT 27 0 - 50 U/L 05/12/2025 6:58 AM [facility] GFR >60 >=60 mL/min/1.7 3 sq meter 05/12/2025 6:58 AM [facility] [facility] Comment:eGFR calculated with 2020 CKD-EPI equation. Vegetarian diet, extremely high or low muscle mass, and may affect results. Cystatin C with Glomerular Filtration Rate is a suitable alternative for these patients. ANION GAP 11 5 - 20 mmol/L 05/12/2025 6:58 AM [facility] Blood BLOOD SPECIMEN / Unknown Venipuncture / Unknown 05/12/2025 6:36 AM CDT 05/12/2025 6:39 AM T Deandra DE LA PAZ CHEMISTRY ORDERABLES Final Result [facility] CLIA # [id number] [address] [place] [address] [phone] * TELEMETRY REPORT (05/10/2025 9:54 AM CDT) Only the most recent of2 resultswithin the time period is included. us Provider Scanning ECG ORDERABLES Final Result * (ABNORMAL) URINALYSIS MICROSCOPY ONLY (05/09/2025 1:29 PM CDT) Only the most recent of2 resultswithin the time period is included. WBC UA 6-10(A) 0 - 2 /hpf 05/09/2025 1:47 PM CDT [facility] RBC UA 0-2 0 - 2 /hpf 05/09/2025 1:47 PM CDT [facility] BACTERIA UA 1+(A) Negative /hpf 05/09/2025 1:47 PM CDT [facility] SPERMATOZOA Present(A) Absent 05/09/2025 1:47 PM CDT [facility] COMMENT, URINE 2+ mucous 05/09/2025 1:47 PM CDT [facility] Urine URINE SPECIMEN OBTAINED BY CLEAN CATCH PROCEDURE / Unknown Collection / Unknown 05/09/2025 1:29 PM CDT 05/09/2025 1:37 PM CDT us Stella Goyal MD URINE ORDERABLES Final Result [facility] CLIA # [id number] [address] [place] [address] 94[address] * (ABNORMAL) URINALYSIS WITH REFLEX MICROSCOPIC (05/09/2025 1:29 PM CDT) Only the most recent of3 resultswithin the time period is included. COLOR UA Yellow Pale to Dark Yellow 05/09/2025 1:47 PM CDT [facility] CLARITY UA Slightly Cloudy(A) Clear 05/09/2025 1:47 PM CDT [facility] SPECIFIC GRAVITY UA >=1.030 1.003 - 1.035 05/09/2025 1:47 PM CDT [facility] PH UA 5.5 5.0 - 8.0 05/09/2025 1:47 PM CDT [facility] LEUKOCYTE ESTERASE UA Negative Negative 05/09/2025 1:47 PM CDT [facility] NITRITE UA Negative Negative 05/09/2025 1:47 PM CDT [facility] PROTEIN UA 3+(A) Negative 05/09/2025 1:47 PM CDT [facility] GLUCOSE UA Negative Negative 05/09/2025 1:47 PM CDT [facility] KETONES UA Trace(A) Negative 05/09/2025 1:47 PM CDT [facility] UROBILINOGEN UA 1.0 <2.0 mg/dL 1:47 PM CDT [facility] BILIRUBIN UA 1+(A) Negative 05/09/2025 1:47 PM CDT [facility] BLOOD UA Negative Negative 05/09/2025 1:47 PM CDT [facility] Urine URINE SPECIMEN OBTAINED BY CLEAN CATCH PROCEDURE / Unknown Collection / Unknown 05/09/2025 1:29 PM CDT 05/09/2025 1:37 PM CDT Stella Goyal MD URINE ORDERABLES Final Result Performing Organization Address City/State/[facility] Co de Phone Number [id number] [address] [place] [address] * CT HEAD WO CONTRAST (05/09/2025 12:26 PM CDT) Anatomical Region Laterality Modality Head Computed Tomogra phy 05/09/2025 12:0 7 PM CDT Impressions 05/09/2025 12:31 PM CDT IMPRESSION: No acute findings. Chronic ischemic changes as described. Narrative 05/09/2025 12:31 PM CDT Exam: CT HEAD WO CONTRAST Date/Time of Exam: 05/09/2025 12:26 PM Reason For Exam: worsening of tremors and difficulty walking, moving arms/legs.. Diagnosis: See Reason for Exam. Technique: CT of the head was performed without the administration of intravenous contrast. 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 There are mild chronic small vessel ischemic changes within the cerebral white matter. There is no evidence of acute infarct, acute hemorrhage, mass, or hydrocephalus. The visualized extracranial structures are unremarkable. The visualized paranasal sinuses, mastoid air cells, and middle ear cavities are clear. Procedure Note Tamy Negron MD - 05/09/2025 Exam: CT HEAD WO CONTRAST Date/Time of Exam: 05/09/2025 12:26 PM Reason For Exam: worsening of tremors and difficulty walking, moving arms/legs.. Diagnosis: See Reason for Exam. Technique: CT of the head was performed without the administration of intravenous contrast. 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 There are mild chronic small vessel ischemic changes within the cerebral white matter. There is no evidence of acute infarct, acute hemorrhage, mass, or hydrocephalus. The visualized extracranial structures are unremarkable. The visualized paranasal sinuses, mastoid air cells, and middle ear cavities are clear. IMPRESSION: No acute findings. Chronic ischemic changes as described. Stella Goyal MD CT ORDERABLES Final Result * (ABNORMAL) TROPONIN 2 HR, 5TH GEN (05/09/2025 8:05 AM CDT) Only the most recent of3 resultswithin the time period is included. TROPONIN T, 2 HR 5TH GEN 46(H) <=15 ng/L 05/09/2025 8:36 AM CDT [facility] DELTA 2HR TROPONIN T -1 See Interp. 05/09/2025 8:36 AM CDT [facility] Blood BLOOD SPECIMEN / Unknown Venipuncture / Unknown 05/09/2025 8:05 AM CDT 05/09/2025 8:16 AM CDT Narrative [facility] - 05/09/2025 8:36 AM CDT Troponin elevated. Delta not changing. Allen Aquino MD CHEMISTRY ORDERABLES Final Result Performing Organization Address City/[facility] Co de Phone Number [facility] CLIA # [id number] [address] [place] [address] * (ABNORMAL) TSH (05/09/2025 8:05 AM CDT) Only the most recent of2 resultswithin the time period is included. TSH 30.30(H) 0.27 - 4.20 uIU/mL 05/09/2025 1:36 PM CDT [facility] Blood BLOOD SPECIMEN / Unknown Venipuncture / Unknown 05/09/2025 8:05 AM CDT 05/09/2025 8:16 AM CDT us Stella Goyal MD CHEMISTRY ORDERABLES Final Resu lt Performing Organization Address [facility] Co de Phone Number [facility] CLIA # [id number] [address] [place] [address] 22334 * EKG 12 lead (05/09/2025 6:34 AM CDT) Only the most recent of5 resultswithin the time period is included. Narrative Stella Goyal MD - 05/09/2025 6:34 AM CDT Stella Goyal MD 05/09/2025 2:33 PM EKG 12 lead Date/Time: 05/09/2025 6:34 AM Performed by: Allen Aquino MD Authorized by: Allen Aquino MD Comments: Normal sinus rhythm no evidence of ischemia or infarct normal axis and intervals no arrhythmias dropped P waves or delta waves us Allen Aquino MD ECG ORDERABLES Final Result * XR CHEST PA OR AP 1 VW (05/09/2025 6:28 AM CDT) Only the most recent of4 resultswithin the time period is included. Anatomical Region Laterality Modality Chest Computed Radiogr aphy 05/09/2025 6:29 AM CDT Impressions 05/09/2025 6:32 AM CDT IMPRESSION: Please see below. Exam: XR CHEST PA OR AP 1 VW Date/Time of Exam: 05/09/2025 6:28 AM REASON FOR EXAM: Chest Pain. DIAGNOSIS: See Reason for Exam. Findings: Comparison is made to the prior exam performed 03/22/2025. The lungs are clear. There is no pneumothorax or pleural effusion. The cardiomediastinal silhouette and post-CABG changes are stable in appearance. The osseous thorax is intact with thoracic spondylosis. IMPRESSION: No acute pulmonary process or significant interval change. Narrative Procedure Note Kb Borges MD - 05/09/2025 IMPRESSION: Please see below. Exam: XR CHEST PA OR AP 1 VW Date/Time of Exam: 05/09/2025 6:28 AM REASON FOR EXAM: Chest Pain. DIAGNOSIS: See Reason for Exam. Findings: Comparison is made to the prior exam performed 03/22/2025. The lungs are clear. There is no pneumothorax or pleural effusion. The cardiomediastinal silhouette and post-CABG changes are stable in appearance. The osseous thorax is intact with thoracic spondylosis. IMPRESSION: No acute pulmonary process or significant interval change. us Allen Aquino MD DIAGNOSTIC IMAGING OR DERABLES Final Result * (ABNORMAL) TROPONIN BASELINE, 5TH GEN (05/09/2025 6:12 AM CDT) Only the most recent of3 resultswithin the time period is included. TROPONIN T, BASELINE 5TH GEN 47(H) <=15 ng/L 05/09/2025 6:42 AM CDT [facility] Blood Venipuncture / Unknown 05/09/2025 6:12 AM CDT 05/09/2025 6:20 AM CDT Narrative [facility] - 05/09/2025 6:42 AM CDT Troponin elevated. us Allen Aquino MD CHEMISTRY ORDERABLES Final Result [facility] CLIA # [id number] [address] [place] [address]180 * D-DIMER (05/09/2025 6:12 AM CDT) D-DIMER QUANT <0.15 <0.50 ug/mL FEU 05/09/2025 6:49 AM CDT [facility] Blood Venipuncture / Unknown 05/09/2025 6:12 AM CDT 05/09/2025 6:36 AM CDT Narrative [facility] - 05/09/2025 6:49 AM CDT D-Dimer assay cutoff value for exclusion of DVT and/or PE is <0.50 ug/mL FEU. As D-Dimer levels increase naturally with age, age stratification for patients over 50 is potentially more appropriate in determining whether a patient should undergo further evaluation for DVT and/or PE than a general cutoff of 0.50 ug/mL FEU. Clinical consideration is recommended. Age Stratified Cutoff Values: 50-60 years: 0.50-0.60 ug/mL FEU 61-70 years: 0.61-0.70 ug/mL FEU 71-80 years: 0.71-0.80 ug/mL FEU Allen Aquino MD HEMATOLOGY ORDERABLES Final Result [facility] CLIA # [id number] [address] [place] [address] 09126 * MAGNESIUM LEVEL (05/09/2025 6:12 AM CDT) Only the most recent of4 resultswithin the time period is included. MAGNESIUM 1.6 1.6 - 2.4 mg/dL 05/09/2025 6:42 AM CDT [facility] Blood Venipuncture / Unknown 05/09/2025 6:12 AM CDT 05/09/2025 6:20 AM CDT Allen Aquino MD CHEMISTRY ORDERABLES Final Result [facility] CLIA # [id number] [address] [place] [address] 85934 * MANUAL DIFFERENTIAL (05/06/2025 6:35 AM CDT) Only the most recent of4 resultswithin the time period is included. PLATELET EST. Adequate 05/06/2025 7:10 AM CDT [facility] RBC MORPHOLOGY Normal 05/06/2025 7:10 AM CDT [facility] CLUMPED PLATELETS Present 05/06/2025 7:10 AM CDT [facility] Comment:Platelet Clumps obse rved on slide. Platelets appear adequate and normal. Blood Venipuncture / Unknown 05/06/2025 6:35 AM CDT 05/06/2025 6:42 AM CDT us Deandra Teresa LEAD MINER BLASTING HEMATOLOGY ORDERABLES COM F inal Result Performing Organization Address City/[facility]/ZIP Co de Phone Number [facility] CLIA # [id number] [address] [place] [phone] * METHOTREXATE LEVEL (05/06/2025 6:35 AM CDT) METHOTREXATE LEVEL <0.04 umol/L 05/06/2025 5:18 PM CDT [facility] [employer] [facility] Blood Venipuncture / Unknown 05/06/2025 6:35 AM CDT 05/06/2025 7:05 AM CDT Narrative [facility] - 05/06/2025 5:18 PM CDT Therapeutic range is protocol driven us Stella Goyal MD CHEMISTRY ORDERABLES Final Resu lt Performing Organization Address City/[facility]/ZIP Co de Phone Number [facility] CLIA # [id number] [address] [facility] [place] [address] * XR ABDOMEN 1 VW (05/03/2025 6:38 PM CDT) Anatomical Region Laterality Modality Abdomen Computed Radiogr aphy 05/03/2025 6:39 PM CDT Impressions 05/03/2025 6:45 PM CDT IMPRESSION: Nonspecific gaseous distention of the stomach. Bowel gas pattern appears nonobstructive. Stool burden is not excessive. The lung bases are clear. Narrative 05/03/2025 6:45 PM CDT Exam: XR ABDOMEN 1 VW Date/Time of Exam: 05/03/2025 6:38 PM Reason For Exam: Abdomen Distension. Diagnosis: Intractable back pain. Comparison: March 19, 2025. Procedure Note Brant Pugh MD - 05/03/2025 Exam: XR ABDOMEN 1 VW Date/Time of Exam: 05/03/2025 6:38 PM Reason For Exam: Abdomen Distension. Diagnosis: Intractable back pain. Comparison: March 19, 2025. IMPRESSION: Nonspecific gaseous distention of the stomach. Bowel gas pattern appears nonobstructive. Stool burden is not excessive. The lung bases are clear. us Stella Goyal MD DIAGNOSTIC IMAGING ORDERABLES F inal Result * (ABNORMAL) TSH REFLEXIVE (05/02/2025 6:20 AM CDT) TSH 39.17(H) 0.27 - 4.20 uIU/mL 05/02/2025 5:22 PM CDT [facility] [employer] [facility] Blood Venipuncture / Unknown 05/02/2025 6:20 AM CDT 05/02/2025 6:31 AM CDT Lydia Ambrocio MD CHEMISTRY ORDERABLES Final Re sult [facility] CLIA # [id number] [facility] [address] [place] [address] * (ABNORMAL) T4 FREE (05/02/2025 6:20 AM CDT) Only the most recent of2 resultswithin the time period is included. Pathologist [facility] T4 FREE <0.10(L) 0.81 - 1.70 ng/dL 05/02/2025 6:16 PM T [facility] Blood Venipuncture / Unknown 05/02/2025 6:20 AM CDT 05/02/2025 6:31 AM CDT Lydia Ambrocio MD CHEMISTRY ORDERABLES Final Re sult [facility] CLIA # [id number] [address] [place] [address] * (ABNORMAL) BASIC METABOLIC PANEL (05/02/2025 6:20 AM CDT) Only the most recent of8 resultswithin the time period is included. [facility] SODIUM 132(L) 136 - 145 mmol/L 05/02/2025 6:52 AM [facility] POTASSIUM 4.4 3.5 - 5.1 mmol/L 05/02/2025 6:52 AM [facility] CHLORIDE 94(L) 98 - 107 mmol/L 05/02/2025 6:52 AM [facility] CO2 28 22 - 29 mmol/L 05/02/2025 6:52 AM [facility] CALCIUM 8.6(L) 8.8 - 10.2 mg/dL 05/02/2025 6:52 AM [facility] BUN 17 8 - 23 mg/dL 05/02/2025 6:52 AM [facility] CREATININE 0.95 0.67 - 1.17 mg/dL 05/02/2025 6:52 AM [facility] GLUCOSE 230(H) 74 - 99 mg/dL 05/02/2025 6:52 AM [facility] GFR >60 >=60 mL/min/1.7 3 sq meter 05/02/2025 6:52 AM [facility] Comment:eGFR calculated with 2020 CKD-EPI equation. Vegetarian diet, extremely high or low muscle mass, and may affect results. Cystatin C with Glomerular Filtration Rate is a suitable alternative for these patients. ANION GAP 10 5 - 20 mmol/L 05/02/2025 6:52 AM CDT [facility] Blood Venipuncture / Unknown 05/02/2025 6:20 AM CDT 05/02/2025 6:31 AM CDT us Lydia Ambrocio MD CHEMISTRY ORDERABLES Final Re sult [facility] CLIA # [id number] [address] [place] [address] [id number] * CT ABDOMEN PELVIS W CONTRAST (05/01/2025 9:27 PM CDT) Anatomical Region Laterality Modality Abdomen Computed Tomogra phy 05/01/2025 9:27 PM CDT Impressions 05/01/2025 10:08 PM CDT IMPRESSION: No evidence of an acute intra-abdominal abnormality. Nonobstructing stones of the left kidney. Colon diverticulosis. Narrative 05/01/2025 10:08 PM CDT EXAM: CT of the abdomen and pelvis with contrast DATE/TIME OF EXAM: 05/01/2025, 9:00 PM REASON FOR EXAM: Abdominal pain DIAGNOSIS: COMPARISON: CT of the chest, abdomen and pelvis with contrast 05/20/2014 TECHNIQUE: Multiple contiguous axial CT images were obtained of the abdomen and pelvis after administration of intravenous contrast. Supplemental 2D reformatted images were generated and reviewed as needed. FINDINGS: Lower chest: No acute findings. Liver: Normal; no suspicious liver mass or acute abnormality. Gallbladder and Bile ducts: Cholecystectomy Spleen: Normal. Pancreas: Normal. Adrenals: Normal. Kidneys, ureters, and urinary bladder: Kidneys are normal in size. Punctate stone in the upper pole left kidney. 6 mm nonobstructing stone in the inferior pole of the right kidney. Small right renal cortical cyst. No acute findings; no hydronephrosis. Urinary bladder is normal. Bowel: No evidence of a small bowel obstruction or acute abnormality. 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 Normal appendix. Peritoneum/retroperitoneum: No ascites. No enlarged retroperitoneal lymph nodes. Vascular: No abdominal aortic aneurysm. Reproductive: No suspicious pelvic masses. Bone and soft tissues: No suspicious bony lesions. Stable left inguinal hernia containing mesenteric fat only. Procedure Note Francesca Mosley MD - 05/01/2025 EXAM: CT of the abdomen and pelvis with contrast DATE/TIME OF EXAM: 05/01/2025, 9:00 PM REASON FOR EXAM: Abdominal pain DIAGNOSIS: COMPARISON: CT of the chest, abdomen and pelvis with contrast 05/20/2014 TECHNIQUE: Multiple contiguous axial CT images were obtained of the abdomen and pelvis after administration of intravenous contrast. Supplemental 2D reformatted images were generated and reviewed as needed. FINDINGS: Lower chest: No acute findings. Liver: Normal; no suspicious liver mass or acute abnormality. Gallbladder and Bile ducts: Cholecystectomy Spleen: Normal. Pancreas: Normal. Adrenals: Normal. Kidneys, ureters, and urinary bladder: Kidneys are normal in size. Punctate stone in the upper pole left kidney. 6 mm nonobstructing stone in the inferior pole of the right kidney. Small right renal cortical cyst. No acute findings; no hydronephrosis. Urinary bladder is normal. Bowel: No evidence of a small bowel obstruction or acute abnormality. 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 Normal appendix. Peritoneum/retroperitoneum: No ascites. No enlarged retroperitoneal lymph nodes. Vascular: No abdominal aortic aneurysm. Reproductive: No suspicious pelvic masses. Bone and soft tissues: No suspicious bony lesions. Stable left inguinal hernia containing mesenteric fat only. IMPRESSION: No evidence of an acute intra-abdominal abnormality. Nonobstructing stones of the left kidney. Colon diverticulosis. us Mg Aguilar MD CT ORDERABLES Final Re sult * LIPASE (05/01/2025 8:00 PM CDT) Only the most recent of2 resultswithin the time period is included. LIPASE 56 13 - 60 U/L 05/01/2025 8:42 PM CDT [facility] Blood BLOOD SPECIMEN / Unknown Collection / Unknown 05/01/2025 8:00 PM CDT 05/01/2025 8:21 PM CDT Mg Aguilar MD CHEMISTRY ORDERABLES Fin al Result [facility] CLIA # [id number] [address] [address] * (ABNORMAL) TROPONIN 6 HR, 5TH GEN (03/23/2025 1:53 AM CDT) TROPONIN T, 6 HR 5TH GEN 21(H) <=15 ng/L 03/23/2025 2:32 AM CDT [facility] [employer] [facility] DELTA 6HR TROPONIN T -5 See Interp. 03/23/2025 2:32 AM CDT [facility] [employer] [facility] Blood Venipuncture / Unknown 03/23/2025 1:53 AM CDT 03/23/2025 2:01 AM CDT Narrative [facility] [employer] [facility] - 03/23/2025 2:32 AM CDT Troponin elevated. Delta indeterminate. Delay in collection of timed specimen beyond recommended collection interval. Results must be interpreted in clinical context. Daniel Quintana MD CHEMISTRY ORDERABLES Final Resu lt Performing Organization Address [facility] Co de Phone Number [facility] CLIA # [id number] [facility] [address] * XR ABDOMEN FOR FEEDING TUBE 1 [...] - 4.5 mg/dL 03/17/2025 4:25 PM CDT [facility] [employer] [facility] Blood Venipuncture / Unknown 03/17/2025 2:58 PM CDT 03/17/2025 3:04 PM CDT Silvia Sheffield MD CHEMISTRY ORDERABLES Maci l Result [facility] CLIA # [id number] [address] [address] [place] [address] * (ABNORMAL) HEMOGLOBIN A1C (03/17/2025 8:00 AM CDT) [facility] HEMOGLOBIN A1C 9.6(H) <=5.6 % 03/18/2025 11:25 AM CDT [facility] EST. AVG GLUCOSE, A1C 229 mg/dL 03/18/2025 11:25 AM CDT [facility] Blood Venipuncture / Unknown 03/17/2025 8:00 AM CDT 03/17/2025 8:16 AM CDT Narrative [facility] - 03/18/2025 11:25 AM CDT HGB A1C INTERPRETATION NORMAL: <5.7% PRE-DIABETES: 5.7 - 6.4% DIABETES: 6.5% OR GREATER Ju Lazo NP CHEMISTRY ORDERABLES Final R esult [facility] CLIA # [id number] [address] [place] [address] * (ABNORMAL) BLOOD GAS ARTERIAL (03/16/2025 4:15 PM CDT) [facility] PH BLOOD POC 7.50(H) 7.35 - 7.45 03/16/2025 4:15 PM T [facility] PCO2 POC 38 35 - 45 mm Hg 03/16/2025 4:15 PM T [facility] PO2 POC 85 80 - 105 mm Hg 03/16/2025 4:15 PM T [facility] HCO3 (CALC) POC 30(H) 22 - 26 mmol/L 03/16/2025 4:15 PM T [facility] HEMOGLOBIN POC 15.0 12.0 - 18.0 g/dL 03/16/2025 4:15 PM T [facility] BASE EXCESS POC 6(H) -2 - 3 mmol/L 03/16/2025 4:15 PM [facility] O2 SATURATION POC 99(H) 95 - 98 % 025 4:15 PM [facility] SODIUM POC 132(L) 138 - 146 mmol/L 03/16/2025 4:15 PM [facility] POTASSIUM POC 3.6 3.5 - 4.9 mmol/L 03/16/2025 4:15 PM [facility] HEMATOCRIT POC 45 38 - 51 % 03/16/2025 4:15 PM [facility] PH TEMP CORRECT 7.50(H) 7.35 - 7.45 03/16/2025 4:15 PM [facility] PCO2 TEMP CORRECT 38 35 - 45 mm Hg 03/16/2025 4:15 PM [facility] PO2 TEMP CORRECT 85 80 - 105 mm Hg 03/16/2025 4:15 PM [facility] SPECIMEN SOURCE, GASES POC Arterial 03/16/2025 4:15 PM [facility] CALCIUM IONIZED POC 4.3(L) 4.8 - 5.2 mg/dL 03/16/2025 4:15 PM [facility] TCO2 (CALC) POC 31(H) 23 - 27 mmol/L 03/16/2025 4:15 PM [facility] FIO2 30.0 21.0 - 100.0 % 03/16/2025 4:15 PM [facility] Comment:FIO2 values reported <21.0 indicate O2 flow in Liters/minute. Values >/= 21.0 indicate percent O2. P/F RATIO POC 283 03/16/2025 4:15 PM [facility] Comment: P/F Ratio Interpretation ARDS SEVERITY PaO2/FiO2 Mild 200-300 Moderate 100-200 Severe <100 PEEP POC 6 03/16/2025 4:15 PM [facility] PUNC SITE POC ART PUNCT 03/16/2025 4:15 PM [facility] VENT MODE POC PRVC 03/16/2025 4:15 PM [facility] Blood, arterial 03/16/2025 4 :15 PM CDT 03/16/2025 4:18 PM CDT Silvia Sheffield MD ABG ORDERABLES Final Res ult [facility] # [id number] [address] [place] [address] [place] [address] * MT ANES INSERT ENDOTRACHEAL AIRWAY (03/16/2025 1:46 PM CDT) Narrative Avis Morse CRNA - 03/16/2025 1:46 PM CDT Avis Morse CRNA 03/16/2025 2:08 PM Airway Date/Time: 03/16/2025 1:46 PM Location: OR Plan: emergent intubation Patient Identity Confirmed by: Verbally with patient and armband Airway: Difficult Staffing Performed: 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 us Roger Eisenberg MD DIAGNOSTIC IMAGING ORD ERABLES Final Result * XR FLUORO LESS THAN 1 HOUR (03/14/2025 5:47 PM CDT) Narrative 03/14/2025 5:47 PM CDT Order information only. Exam was auto-finalized. us Roger Eisenberg MD DIAGNOSTIC IMAGING ORD [...] See operative report. Narrative Procedure Note Cristhian Thompson DO - 03/14/2025 IMPRESSION: Please see below. Exam: [...] DIAGNOSTIC IMAGING ORD ERABLES Final Result * MT ANES INSERT ENDOTRACHEAL AIRWAY (03/14/2025 3:26 PM CDT) Narrative Megn Turner CRNA - 03/14/2025 3:26 PM CDT Meng Turner CRNA 03/14/2025 3:45 PM Airway Date/Time: 03/14/2025 3:26 PM Location: OR Plan: routine intubation Patient Identity Confirmed by: Verbally with patient and armband Staffing Performed: OPEN HEARTH STOCKYARD SUPERVISOR/CAA Authorized by: Tramaine Brar MD Performed by: [...] - 37.2 seconds 03/14/2025 10:35 AM CDT [facility] Blood Venipuncture / Unknown 03/14/2025 9:44 AM CDT 03/14/2025 10:19 AM CDT Narrative [facility] [employer] [facility] - 03/14/2025 10:35 AM CDT Therapeutic Range: Hi-level PE/DVT heparin protocol 80.1 - 95.0 sec Lo-level PE/DVT heparin protocol 70.1 - 85.0 sec Cardiac Heparin Protocol 70.1 - 100.0 sec us Roger Eisenberg MD HEMATOLOGY ORDERABLES Final Result Performing Organization Address [facility]/ZIP Co de Phone Number [facility] CLIA # [id number] [address] [place] [address] * PROTIME-INR (03/14/2025 9:44 AM CDT) PROTIME 12.9 12.7 - 14.9 Seconds 03/14/2025 10:35 AM CDT [facility] INR 0.9 0.8 - 1.2 03/14/2025 10:35 AM CDT [facility] Blood Venipuncture / Unknown 03/14/2025 9:44 AM CDT 03/14/2025 10:19 AM CDT [facility] [employer] [facility] - 03/14/2025 10:35 AM CDT Expected Values [...] Roger Eisenberg MD HEMATOLOGY ORDERABLES Final Result Performing Organization Address City/[facility] [facility]/ZIP Co de Phone Number [facility] [employer] [facility] CLIA # [id number] [address] [facility] [place] [address] * ECHOCARDIOGRAM W/ CONTRAST AGENT (03/13/2025 3:12 PM CDT) EJECTION FRACTION 55 INTERFACE SYSTEM 03/13/2025 2:12 PM CDT Narrative INTERFACE SYSTEM - 03/13/2025 4:12 PM CDT [facility] Cardiovascular Services Echocardiography Laboratory [address] [place] [id number] Transthoracic Echocardiography Patient: Hudson Griffin Study ID: ECHO COMPLETE - Gender: Leslie : 1960 Age: 64 Room: [facility] Study Date: 03/13/2025 Pt Status: Inpatient Study Time: 02:12:50 PM CSN #: [id number] Ordering:Tino Buckner Invasive Cardiovascular Technologist: Joe Mosley [facility] [...] (H) nataliya values outside specified reference range. [facility] Echo Labs are accredited with the Intersocietal Accreditation Commission - Echocardiography. Prepared and Electronically Authenticated Gonzalo Abdalla Confirmed 03/13/2025 16:12 Procedure Note Gonzalo Abdalla MD - 03/13/2025 [facility] Cardiovascular Services Echocardiography Laboratory [address] [place] [id number] Transthoracic Echocardiography Patient: Hudson Griffin Study ID: ECHOCOMPLETE - Gender: Leslie : 1960 Age: 64 Room: [facility] Study Date: 03/13/2025 Pt Status: Inpatient Study Time: 02:12:50 PM [facility] #: [id number] Ordering:Tino Buckner Invasive Cardiovascular Technologist: Joe Mosley [facility] [...] (H) nataliya values outside specified reference range. [facility] Echo Labs are accredited with theIntersocietal Accreditation [...] L5-S1. Several other foramina are mildly narrowed. us Tino Buckner MD MR ORDERABLES Final Result [...] changes at the other levels as described. us Tino Buckner MD MR ORDERABLES Final Result * EXTRA TUBE (URINE MILLER) (03/11/2025 9:46 PM CDT) Urine URINE SPECIMEN OBTAINED BY CLEAN CATCH PROCEDURE / Unknown Collection / Unknown 03/11/2025 9:46 PM CDT 03/11/2025 9:55 PM CDT us Tamy Lindsey MD URINE ORDERABLES Final Resul t [facility] # [id number] [address] [address] [place] [address] * CTA CHEST W AND/OR WO CONTRAST [...] pulmonary edema and pulmonary hypertension. MACRO: None us Tamy Lindsey MD CT [...] lower thoracic or lumbar spine. MACRO: None Tamy Lindsey MD CT ORDERABLES [...] [employer] NOTE: COMPARISON: None TECHNIQUE: Thin isotropic axial [...] * C-REACTIVE PROTEIN (03/11/2025 5:58 PM CDT) Pathologist [facility] CRP <3.0 0.0 - 5.0 mg/L 03/11/2025 10:37 PM CDT [facility] Blood Venipuncture / Unknown 03/11/2025 5:58 PM CDT 03/11/2025 6:12 PM CDT Eddie Brar MD CHEMISTRY ORDERABLES Final Resu lt [facility] # [id number] [address] [place] [address] * (ABNORMAL) SEDIMENTATION RATE (03/11/2025 3:28 PM CDT) ESR (SEDIMENTATION RATE) 11(H) 0 - 10 mm/Hr 03/11/2025 10:36 PM CDT [facility] Blood Venipuncture / Unknown 03/11/2025 3:28 PM CDT 03/11/2025 3:41 PM CDT us Eddie Brar MD HEMATOLOGY ORDERABLES Final Res ult Performing Organization Address City/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) Creatinine, Urine 68 20 - 320 mg/dL [facility] MICROALBUMIN, URINE 5.7 See Note: mg/dL [facility] Comment: Reference Range: Reference Range Not established MICROALBUMIN/CREAT RATIO, UR 84(H) <30 mcg/mg creat [facility] Comment: The ADA defines abnormalities in albumin excretion as follows: Albuminuria Category Result (mcg/mg creatinine) Normal to Mildly increased <30 Moderately increased 30-299 Severely increased > OR = 300 The ADA recommends that at least two of three specimens collected within a 3-6 month period be abnormal before considering a patient to be within a diagnostic category. Test Performed at: [email or web address] [address] [place] [address] Alex Coats D.O., MPH Urine URINE SPECIMEN OBTAINED BY CLEAN CATCH PROCEDURE / Unknown 08/09/2021 10:51 AM READY MIX TRUCK DRIVER 08/10/2021 11:58 PM READY MIX TRUCK DRIVER us Marylou Zazueta LEAD MINER BLASTING URINE ORDERABLES Final Result Performing Organization Address [facility]/ZIP Co de Phone Number [facility] [address] [place] [address] * (ABNORMAL) LIPID PANEL (08/09/2021 10:51 AM READY MIX TRUCK DRIVER) CHOLESTEROL 221(H) <200 mg/dL [facility] HDL 34(L) > OR = 40 mg/dL [facility] TRIGLYCERIDE 602(H) <150 mg/dL [facility] Comment: If a non-fasting specimen was collected, consider repeat triglyceride testing on a fasting specimen if clinically indicated. Saeed et al. J. of Clin. Lipidol. 2015;9:129-169. There is increased risk of pancreatitis when the triglyceride concentration is very high (> or = 500 mg/dL, especially if > or = 1000 mg/dL). Saeed et al. J. of Clin. Lipidol. 2015;9:129-169. LDL CALCULATED mg/dL (calc) [facility] Comment: LDL cholesterol not calculated. Triglyceride levels greater than 400 mg/dL invalidate calculated LDL results. Reference range: <100 Desirable range <100 mg/dL for primary prevention; <70 mg/dL for patients with CHD or diabetic patients with > or = 2 CHD risk factors. LDL-C is now calculated using the Elias-Alayna calculation, which is a validated novel method providing better accuracy than the Friedewald equation in the estimation of LDL-C. Elias SS et al. ISRAEL. 2013;310(19): 4758-7173 (http://education.Be Sport/faq/LZO078) CHOL/HDL RATIO 6.5(H) <5.0 (calc) [facility] TOTAL NON-HDL CHOL(LDL+VLDL) 187(H) <130 mg/dL (calc) [facility] Comment: For patients with diabetes plus 1 major ASCVD risk factor, treating to a non-HDL-C goal of <100 mg/dL (LDL-C of <70 mg/dL) is considered a therapeutic option. Test Performed at: [email or web address] [address] [place] [address] Alex Coats D.O., MPH Blood 08/09/2021 10:5 1 AM READY MIX TRUCK DRIVER 08/10/2021 11:51 AM READY MIX TRUCK DRIVER us Marylou Zazueta LEAD MINER BLASTING CHEMISTRY ORDERABLES Final Re sult [facility] [address] [place] [address] * US ABDOMEN COMPLETE (11/16/2007 [...] cm in length while the left kidney lrmutjoy57.6 cm in length. There is no evidence [...] Recently Relevant to Health Maintenance Insurance MEDICAID [place] DUAL COMPLETE O [facility] [id number] RX [employer] RX Member Subscriber Plan / Payer (Ef fective 2022-Present) Name:Hudson Griffin [place] Relation to Subscriber:Self Name:Hudson Griffin Payer ID:Not on file Group ID:[id number] Type:RX Medicare Part D Address: [address] RX [employer] Medicaid Advance Directives For more information, please contact: [phone] * Full Code (Latest Code Status on File) Date Activated Date Inactivated Comments 05/09/2025 4:54 PM 05/13/2025 1:45 PM * Full Code Date Activated Date Inactivated Comments 05/02/2025 1:06 AM 05/06/2025 10:09 PM * Full Code Date Activated Date Inactivated Comments 03/23/2025 3:15 PM 03/27/2025 6:13 PM * Full Code Date Activated Date Inactivated Comments 03/14/2025 7:33 PM 03/23/2025 2:46 PM * Full Code Date Activated Date Inactivated Comments 03/11/2025 10:11 PM 03/14/2025 7:33 PM
--- OUTSIDE RECORDS SUMMARY | 2025-05-29 12:05 | XMS_ITS | Encounter Summary ---
Author Organization [facility] Address [address] [place] [address] Care Team Providers Care Creping Machine Operator Helper Name Role Phone Primitivo Crowder MD Primary Care Provider [phone] Encounter Details Date Type Department Care Team (Latest Contact Info) Description 10/03/2004 Outpatient Historical [facility] [address] [phone] Primitivo Crowder MD [address] [place] [address] ABDOMINAL PAIN UNSPEC SITE (Primary Dx); DYSTHYMIC DISORDER; Pain in limb; MIXED HYPERLIPIDEMIA Social History Tobacco Use Types Packs/Day Years Used Date Smoking Tobacco: Never Assessed Sex and Gender Information Value Date Recorded Sex Assigned at Not on file 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
--- OUTSIDE RECORDS SUMMARY | 2025-05-29 12:05 | XMS_ITS | Clinical Summary ---
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 AVG GLUCOSE, A1C 312 mg/dL 05/11/2019 2:59 PM CDT [facility] Blood Venipuncture / Unknown 05/11/2019 4:01 AM CDT 05/11/2019 4:01 AM CDT Narrative [facility] - 05/11/2019 2:59 PM CDT HGB A1C INTERPRETATION NORMAL: <5.7% PRE-DIABETES: 5.7 - 6.4% DIABETES: 6.5% OR GREATER [facility] ANP CHEMISTRY ORDERABLES Maci l Result Performing Organization Address City/[facility]/ZIP Co de Phone Number [facility] CLIA# [id number] [address] [place] [address] * (ABNORMAL) LIPID PANEL (05/11/2019 4:01 AM CDT) [facility] Signature CHOLESTEROL 242(H) <200 mg/dL 05/11/2019 8:31 AM T [facility] TRIGLYCERIDE 1,272(H) <150 mg/dL 05/11/2019 8:[address] [facility] HDL 05/11/2019 8:31 AM T [facility] Comment:Measured HDL is not accurate when the Triglyceride value exceeds 1000. LDL CALCULATED 05/11/2019 8:31 AM T [facility] Comment:Calculated LDL is no t accurate when the Triglyceride value exceeds 400. NON-HDL CHOLESTEROL 05/11/2019 8:[address] [facility] Comment:Non HDL Cholesterol cannot be calculated when the HDL value is suppressed. Blood Venipuncture / Unknown 05/11/2019 4:01 AM CDT 05/11/2019 4:01 AM CDT Narrative [facility] - 05/11/2019 8:31 AM CDT [...] [place] ANP CHEMISTRY ORDERABLES Maci l Result [facility] CLIA# [id number] [address] [facility] [place] [address] from Last 3 Months or Most Recently Relevant to Health Maintenance Insurance MEDICARE PART A AND B MEDICAID [place] Advance Directives For more information, please contact: [phone] * Full Code (Latest Code Status on File) Date Activated Date Inactivated Comments 05/11/2019 12:25 AM 05/11/2019 6:37 PM * Full Code Date Activated Date Inactivated Comments 02/14/2015 1:43 PM 02/14/2015 4:57 PM * Full Code Date Activated Date Inactivated Comments 04/28/2014 5:42 PM 04/29/2014 9:59 PM * Full Code Date Activated Date Inactivated Comments 10/07/2011 8:01 PM 10/08/2011 7:31 PM Care Teams Technical Support Representative Relationship Specialty Start Date End Date Primitivo Crowder MD [address] [place] [address] PCP - General Family Practice 05/20/14
--- OUTSIDE RECORDS SUMMARY | 2025-05-29 12:05 | XMS_ITS | Encounter Summary ---
Author Organization [facility] Address [address] [place] [address] Care Team Providers Care Solar System Installer Name Role Phone Primitivo Crowder MD Primary Care Provider [phone] Encounter Details Date Type Department Care Team (Latest Contact Info) Description 10/16/2004 Outpatient Historical [facility] Medicine [place] [address] [phone] Erica Garber MD [address] [place] [phone] SHORTNESS OF BREATH (Primary Dx); HEADACHE; MEMORY LOSS; DYSTHYMIC DISORDER Social History Tobacco Use Types Packs/Day Years Used Date Smoking Tobacco: Never Assessed Sex and Gender Information Value Date Recorded Sex Assigned at Not on file Legal 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
--- OUTSIDE RECORDS SUMMARY | 2025-05-29 12:05 | XMS_ITS | Encounter Summary ---
Author Organization [facility] Address [address] [place] [address] Care Team Providers Care Geodetic Advisor Name Role Phone Primitivo Crowder MD Primary Care Provider [phone] Encounter Details Date Type Department Care Team (Latest Contact Info) Description 09/22/2004 Outpatient Historical [facility] [address] 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
--- OUTSIDE RECORDS SUMMARY | 2025-05-29 12:05 | XMS_ITS | Encounter Summary ---
Author Organization [facility] Address [address] [place] [address] Care Team Providers Care Engineer Geophysical Laboratory Name Role Phone Primitivo Crowder MD Primary Care Provider [phone] Encounter Details Date Type Department Care Team (Latest Contact Info) Description 01/28/2005 Outpatient Historical [facility] [address] [phone] Primitivo Crowder MD [address] [place] [phone] HYPERTENSION NOS (Primary Dx) Social History Tobacco Use Types Packs/Day Years Used Date Smoking Tobacco: Never Assessed Sex and Gender Information Value Date Recorded Sex Assigned at Not on file 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
--- OUTSIDE RECORDS SUMMARY | 2025-05-29 12:05 | XMS_ITS | Encounter Summary ---
Author Organization [facility] Address [address] [place] [address] Care Team Providers Care Video Editor Name Role Phone Primitivo Crowder MD Primary Care Provider [phone] Encounter Details Date Type Department Care Team (Latest Contact Info) Description 11/22/2004 Outpatient Historical [facility] [address] [phone] Primitivo Crowder MD [address] [place] [phone] MIXED HYPERLIPIDEMIA (Primary Dx); HEPATITIS NOS; DYSTHYMIC DISORDER Social History Tobacco Use Types Packs/Day Years Used Date Smoking Tobacco: Never Assessed Sex and Gender Information Value Date Recorded Sex Assigned at Not on file 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
[2025-05-29] MEDS: ondansetron 2 mg/ML SDV 2 mL 4 MG IVP (12:27)
[2025-05-29] MEDS: morphine 4 mg/mL SDV 1 mL IVP (12:27)
[2025-05-29 12:33] LABS: Hematocrit 41.6 % (37-53); Hemoglobin 13.90 g/dL (11.27-16.99); Mean Corpuscular HGB Conc 33.4 g/dL (30-55); Mean Corpuscular Hemoglobin 29.3 pg (27-33); Mean Corpuscular Volume 87.8 fl (82-101); Nucleated Red Blood Cells % 0 %; Platelet Count 355 10^3/cmm (157-399); Red Blood Count 4.74 10^6/uL (3.85-5.65); White Blood Count 6.63 10^3/uL (3.29-11.43)
[2025-05-29 12:40] VITALS: RESP 18
[2025-05-29 12:47] LABS: Alanine Aminotransferase 24 U/L (0-41); Albumin Level 4.3 g/dL (3.5-5.2); Alkaline Phosphatase 99 U/L (40-130); Anion Gap 17.2 (5-19); Aspartate Amino Transferase 18 U/L (0-40); Blood Urea Nitrogen 11 mg/dL (8-23); Calcium 8.6 mg/dL (8.5-10.5); Carbon Dioxide 26 mmol/L (22-29); Chloride 99 mmol/L (98-107); Globulin 2.9 g/dL (1.3-4.6); Glucose 149 mg/dL (65-115); Lipase 31 U/L (13-60); Osmolality Calculated 288 mOsm/kg (285-295); Potassium 4.2 mmol/L (3.5-5.1); Sodium 138 mmol/L (136-145); Total Protein 7.2 g/dL (6.6-8.7)
[2025-05-29] MEDS: iohexol 350 mg/mL 500 mL Btl (per mL) IV (13:05)
[2025-05-29] MEDS: HYDROcodone-acetaminophen 7.5-325 mg Tablet 1 TAB PO (14:30)
== END 2025-05-29 14:31 | disposition home or self-care (01) ==
PROVIDERS: Emergency Provider Emergency Medicine
DX: R10.9 Unspecified abdominal pain (principal); Z79.84 Long term (current) use of oral hypoglycemic drugs; Z79.82 Long term (current) use of aspirin; I25.10 Atherosclerotic heart disease of native coronary artery without angina pectoris; E78.5 Hyperlipidemia, unspecified; E11.42 Type 2 diabetes mellitus with diabetic polyneuropathy; I10 Essential (primary) hypertension
CPT/HCPCS: 36415; 74177; 80053; 83690; 85025; 96374; 96375; 99285; J2270; J2405; J9999